=== PATIENT | male | born 1935 | race Caucasian/White ===

== ENCOUNTER 2017-09-27 11:25 | Observation (INO) | payer MEDICARE ==
[2017-09-27] MEDS ORDERED: MORPHINE SULFATE 2 MG/ML SYRINGE IV STA (12:23)
--- NOTE | 2017-09-27 12:26 | ED ---
General Adult HPI - General Chief complaint: Chest Pain Stated complaint: CHEST PAIN, LOW BACK PAIN, COPD Time Seen by Provider: 09/27/17 11:55 Source: patient, family, RN notes reviewed, old records reviewed Mode of arrival: wheelchair Limitations: physical limitation - History of Present Illness Initial comments: 81-year-old male history of COPD, atrial fibrillation, and current tobacco use presents for evaluation of left-sided chest pain and low back pain. Patient has a known history of abdominal aortic aneurysm and according to the patient an aneurysm "behind his heart". This is been followed by cardiothoracic surgery. He states that approximately one week ago he developed left-sided chest pain which was sharp in nature. Worse with deep breathing. And some atraumatic low back pain. Patient describes the back pain as bilateral. His had some mild dyspnea associated with this. No diaphoresis. No vomiting. No history of hypertension. - Related Data Home Medications Medication Instructions Recorded Confirmed Albuterol Sulfate [Proair Hfa] 1 - 2 puff INHALATION RT-Q6H PRN 09/27/17 Doxycycline Hyclate 100 mg PO DAILY 09/27/17 09/27/17 Flecainide [Tambocor] 50 mg PO Q12HR 09/27/17 09/27/17 Niacin 500 mg PO TID 09/27/17 09/27/17 Triamcinolone 0.5% Cream [Kenalog 1 applic TOPICAL BID 09/27/17 09/27/17 0.5% Cream] Warfarin [Coumadin] 5 mg PO W/SUPPER 09/27/17 09/27/17 diphenhydrAMINE [Benadryl] 50 mg PO Q6H PRN 09/27/17 09/27/17 predniSONE 10 mg PO DAILY 09/27/17 09/27/17 Allergies Allergy/AdvReac Type Severity Reaction Status Date / Time No Known Allergies Allergy Verified 09/27/17 13:02 Review of Systems ROS Statement: Those systems with pertinent positive or pertinent negative responses have been documented in the HPI. ROS Other: All systems not noted in ROS Statement are negative. Past Medical History Past Medical History: Atrial Fibrillation, COPD History of Any Multi-Drug Resistant Organisms: None Reported Past Surgical History: Hernia Repair Additional Past Surgical History / Comment(s): ULCER REPAIR- 35 YEARS AGO Past Psychological History: No Psychological Hx Reported Smoking Status: Current every day smoker Past Alcohol Use History: Occasional Past Drug Use History: None Reported General Exam Limitations: physical limitation General appearance: alert, in no apparent distress Head exam: Present: atraumatic, normocephalic Eye exam: Present: normal appearance, PERRL, EOMI Neck exam: Present: normal inspection. Absent: tenderness, meningismus Respiratory exam: Present: decreased breath sounds, prolonged expiratory. Absent: respiratory distress Cardiovascular Exam: Present: regular rate, normal rhythm GI/Abdominal exam: Present: soft. Absent: distended, tenderness, guarding Extremities exam: Present: normal inspection, normal capillary refill. Absent: pedal edema Back exam: Present: tenderness, paraspinal tenderness Neurological exam: Present: alert, oriented X3, CN II-XII intact. Absent: motor sensory deficit Psychiatric exam: Present: normal affect, normal mood Skin exam: Present: warm, dry, intact. Absent: cyanosis, diaphoretic Course Vital Signs 09/27/17 09/27/17 11:36 13:05 Temperature 97.9 F Pulse Rate 62 74 Respiratory 18 20 Rate Blood Pressure 146/86 187/89 O2 Sat by Pulse 98 96 Oximetry EKG Findings - EKG Comments: EKG Findings:: EKG shows sinus bradycardia, left anterior fascicular block, hyperacute T waves in the lateral precordium, rate of 54, RI interval 186, QRS duration 98, QTC 426 Medical Decision Making - Medical Decision Making 81-year-old male presenting for evaluation of chest pain and back pain. Patient does have history of thoracic aortic aneurysm as well as abdominal aortic aneurysm. For this reason CT angiography is obtained, patient is a 4.6 cm thoracic aneurysm with no dissection and a 3 cm abdominal aneurysm. Chest x- ray shows aneurysmal change with no focal pneumonia or pneumothorax. Workup reveals normal white blood cell count, stable hemoglobin, INR is 2.0, troponin is negative. CMP is unremarkable. Case discussed with Dr. Herron, will accept admission for chest pain rule out. Patient is anticoagulated, heparin will be held at this time. - Lab Data Result diagrams: 09/27/17 12:05 09/27/17 12:05 Lab Results 09/27/17 09/27/17 09/27/17 Range/Units 12:05 12:05 12:05 WBC 7.1 (3.8-10.6) k/uL RBC 4.82 (4.30-5.90) m/uL Hgb 15.3 (13.0-17.5) gm/dL Hct 46.3 (39.0-53.0) % MCV 96.2 (80.0-100.0) fL MCH 31.8 (25.0-35.0) pg MCHC 33.1 (31.0-37.0) g/dL RDW 13.4 (11.5-15.5) % Plt Count 266 (150-450) k/uL Neutrophils % 84 % Lymphocytes % 8 % Monocytes % 5 % Eosinophils % 2 % Basophils % 0 % Neutrophils # 6.0 (1.3-7.7) k/uL Lymphocytes # 0.6 L (1.0-4.8) k/uL Monocytes # 0.3 (0-1.0) k/uL Eosinophils # 0.1 (0-0.7) k/uL Basophils # 0.0 (0-0.2) k/uL PT (9.0-12.0) sec INR (<1.2) APTT (22.0-30.0) sec Sodium 134 L (137-145) mmol/L Potassium 4.4 (3.5-5.1) mmol/L Chloride 96 L (98-107) mmol/L Carbon Dioxide 28 (22-30) mmol/L Anion Gap 10 mmol/L BUN 11 (9-20) mg/dL Creatinine 0.83 (0.66-1.25) mg/dL Est GFR (CKD-EPI)AfAm >90 (>60 ml/min/1.73 sqM) Est GFR (CKD-EPI)NonAf 83 (>60 ml/min/1.73 sqM) Glucose 85 (74-99) mg/dL Calcium 9.1 (8.4-10.2) mg/dL Magnesium 1.8 (1.6-2.3) mg/dL Total Bilirubin 0.5 (0.2-1.3) mg/dL AST 38 (17-59) U/L ALT 32 (21-72) U/L Alkaline Phosphatase 123 (38-126) U/L Total Creatine Kinase 81 (55-170) U/L CK-MB (CK-2) 2.4 (0.0-2.4) ng/mL CK-MB (CK-2) Rel Index 3.0 Troponin I <0.012 (0.000-0.034) ng/mL NT-Pro-B Natriuret Pep pg/mL Total Protein 6.7 (6.3-8.2) g/dL Albumin 4.1 (3.5-5.0) g/dL Lipase 42 (23-300) U/L 09/27/17 09/27/17 Range/Units 12:05 14:04 WBC (3.8-10.6) k/uL RBC (4.30-5.90) m/uL Hgb (13.0-17.5) gm/dL Hct (39.0-53.0) % MCV (80.0-100.0) fL MCH (25.0-35.0) pg MCHC (31.0-37.0) g/dL RDW (11.5-15.5) % Plt Count (150-450) k/uL Neutrophils % % Lymphocytes % % Monocytes % % Eosinophils % % Basophils % % Neutrophils # (1.3-7.7) k/uL Lymphocytes # (1.0-4.8) k/uL Monocytes # (0-1.0) k/uL Eosinophils # (0-0.7) k/uL Basophils # (0-0.2) k/uL PT 18.4 H (9.0-12.0) sec INR 2.0 H (<1.2) APTT 29.1 (22.0-30.0) sec Sodium (137-145) mmol/L Potassium (3.5-5.1) mmol/L Chloride (98-107) mmol/L Carbon Dioxide (22-30) mmol/L Anion Gap mmol/L BUN (9-20) mg/dL Creatinine (0.66-1.25) mg/dL Est GFR (CKD-EPI)AfAm (>60 ml/min/1.73 sqM) Est GFR (CKD-EPI)NonAf (>60 ml/min/1.73 sqM) Glucose (74-99) mg/dL Calcium (8.4-10.2) mg/dL Magnesium (1.6-2.3) mg/dL Total Bilirubin (0.2-1.3) mg/dL AST (17-59) U/L ALT (21-72) U/L Alkaline Phosphatase (38-126) U/L Total Creatine Kinase (55-170) U/L CK-MB (CK-2) (0.0-2.4) ng/mL CK-MB (CK-2) Rel Index Troponin I (0.000-0.034) ng/mL NT-Pro-B Natriuret Pep 110 pg/mL Total Protein (6.3-8.2) g/dL Albumin (3.5-5.0) g/dL Lipase (23-300) U/L Disposition Clinical Impression: Chest pain Disposition: ADMITTED IP TO THIS [facility] Condition: Stable Is patient prescribed a controlled substance at d/c from ED?: No Referrals: Anamaria Faria MD [Primary Care Provider] - 1-2 days Decision to Admit Reason: Admit from EC Decision Date: 09/27/17 Decision Time: 15:43
[2017-09-27] MEDS ORDERED: RX INFO: IV CONTRAST WAS GIVEN 1 EACH MISC MISCELLANE PRN (12:38)
[2017-09-27 13:15] LABS: Basophils % (A) 0 %; Eosinophils # (A) 0.1 k/uL (0-0.7); Eosinophils % (A) 2 %; HCT 46.3 % (39.0-53.0); HGB 15.3 gm/dL (13.0-17.5); Lymphocytes # (A) 0.6 k/uL (1.0-4.8); Lymphocytes % (A) 8 %; MCH 31.8 pg (25.0-35.0); MCHC 33.1 g/dL (31.0-37.0); MCV 96.2 fL (80.0-100.0); Mean Platelet Volume 7.3; Monocytes # (A) 0.3 k/uL (0-1.0); Monocytes % (A) 5 %; Neutrophils % (A) 84 %; Platelet Count 266 k/uL (150-450); RBC 4.82 m/uL (4.30-5.90); RDW 13.4 % (11.5-15.5); WBC 7.1 k/uL (3.8-10.6)
[2017-09-27 13:24] LABS: ALT 32 U/L (21-72); AST 38 U/L (17-59); Albumin 4.1 g/dL (3.5-5.0); Alkaline Phosphatase 123 U/L (38-126); Anion Gap 10 mmol/L; Blood Urea Nitrogen 11 mg/dL (9-20); Calcium 9.1 mg/dL (8.4-10.2); Carbon Dioxide 28 mmol/L (22-30); Chloride 96 mmol/L (98-107); Glucose 85 mg/dL (74-99); Lipase 42 U/L (23-300); Magnesium 1.8 mg/dL (1.6-2.3); Potassium 4.4 mmol/L (3.5-5.1); Sodium 134 mmol/L (137-145); Total Bilirubin 0.5 mg/dL (0.2-1.3); Total Protein 6.7 g/dL (6.3-8.2)
[2017-09-27 13:44] LABS: Creatine Kinase 81 U/L (55-170)
[2017-09-27 13:56] LABS: Creatine Kinase MB 2.4 ng/mL (0.0-2.4); Troponin I <0.012 ng/mL (0.000-0.034)
--- NOTE | 2017-09-27 14:05 | XR ---
EXAMINATION TYPE: XR chest 2V DATE OF EXAM: 09/27/2017 COMPARISON: CT angiogram same day HISTORY: Chest pain TECHNIQUE: Frontal and lateral views of the chest are obtained on 3 images. FINDINGS: There is no focal air space opacity, pleural effusion, or pneumothorax seen. The cardiac silhouette size is within normal limits. The osseous structures are intact. Prominent lung volumes are compatible with underlying COPD. No pneumothorax or pleural effusion. Aorta is aneurysmal. No vargas dent airspace disease. Surgical clips present at the gastroesophageal junction level. There are overl darrell cardiac leads. IMPRESSION: No acute cardiopulmonary process. Aortic aneurysm. Emphysema.
--- NOTE | 2017-09-27 14:22 | CT ---
EXAMINATION TYPE: CT angio thoracic/abd aorta DATE OF EXAM: 09/27/2017 COMPARISON: NONE HISTORY: Patient complains of back and abdominal pain with a history of abdominal and ascending aorta aneurysms. CT DLP: 448.3 mGycm CONTRAST: CTA thoracic and abdominal aorta with 3-D reconstruction is performed and without and with IV Contras t, patient injected with 100 mL of Isovue 370. Contrast CTA of the thoracic and abdominal aorta was performed from the lung apex through the base of the pelvis. 3-D reconstruction imaging obtained at a separate workstation. CT Chest: THORACIC AORTA: Ascending thoracic aortic aneurysm measures 4.6 cm in AP dimension. Aneurysm distal a ortic arch measuring 3.6 cm. Ectasia of the descending thoracic aorta. No evidence for dissection. Mi ld atheromatous changes seen. There is no evidence for dissection or periaortic collection. LUNGS: Upper lobe emphysematous changes. Hyperinflation compatible with COPD. No evidence of infiltra te nodule or mass. MEDIASTINUM: The heart is not enlarged. No evidence for mediastinal mass or adenopathy. HILAR STRUCTURES: No evidence for mass. No hilar adenopathy is appreciated. OTHER: No significant abnormality. CONTRAST CT ABDOMEN AND PELVIS ABDOMINAL AORTA: Infrarenal abdominal aortic aneurysm measuring 3 cm AP dimension. Mural thrombus not ed throughout. Branch vessels are patent. Ectasia noted of the abdominal aorta and iliac vessels. No evidence for dissection or para-aortic hematoma. LIVER/GB- No significant abnormality is seen. PANCREAS- No significant abnormality is seen. SPLEEN- No significant abnormality is seen. ADRENALS- No significant abnormality is seen. KIDNEYS/BLADDER- No significant abnormality is seen. BOWEL- No Significant abnormality GENITAL ORGANS: No gross abnormality seen. LYMPH NODES- No greater than 1cm abdominal or pelvic lymph nodes areappreciated. OSSEOUS STRUCTURES- No significant abnormality is seen. OTHER- No significant abnormality is seen. IMPRESSION- 1. Thoracic aortic and abdominal aortic aneurysms as discussed above without evidence for calcaneal f actor at this time.
[2017-09-27 14:25] LABS: Partial Thromboplastin Time 29.1 sec (22.0-30.0); Prothrombin Time 18.4 sec (9.0-12.0)
[2017-09-27] MEDS ORDERED: MORPHINE SULFATE 2 MG/ML SYRINGE IV PRN (15:36)
[2017-09-27] MEDS ORDERED: IBUPROFEN 400 MG TAB PO PRN (15:36)
[2017-09-27] MEDS ORDERED: NALOXONE 0.4 MG/ML 1 ML VIAL IV PRN (15:36)
[2017-09-27] MEDS: ALBUTEROL NEBULIZED 2.5 MG/3 ML INHALATION SCH ×2 (16:24→20:23)
[2017-09-27 18:22] VITALS: BMI 18.8
[2017-09-27] MEDS: WARFARIN 5 MG TAB PO SCH (18:32)
[2017-09-27 19:04] LABS: Creatine Kinase 78 U/L (55-170)
[2017-09-27 19:16] LABS: Creatine Kinase MB 2.4 ng/mL (0.0-2.4); Troponin I <0.012 ng/mL (0.000-0.034)
[2017-09-27] MEDS: FLECAINIDE 50 MG TAB PO SCH (20:59)
[2017-09-28] MEDS ORDERED: AMINOPHYLLINE 500 MG/20 ML VIAL IV PRN (07:33)
[2017-09-28] MEDS ORDERED: REGADENOSON 0.4 MG/5 ML SYRINGE IV ONE (07:33)
[2017-09-28] MEDS: ALBUTEROL NEBULIZED 2.5 MG/3 ML INHALATION SCH ×4 (08:07→19:17)
[2017-09-28] MEDS ORDERED: MORPHINE ORAL SOLN 10 MG/5 ML CUP PO PRN (09:18)
--- NOTE | 2017-09-28 09:20 | CONS ---
CONSULTATION Attending: Dr. Faria. Mr. Foster is an 81-year-old male with a known history of paroxysmal atrial fibrillation, history of chronic tobacco use as well as history of thoracic aneurysm followed by Dr. Vanegas, who presented with symptoms of lower back discomfort radiating to the chest. The discomfort started about a week or so ago, was much worse and came into the emergency room. He has chronic dyspnea on exertion related to his chronic tobacco use and chronic obstructive lung disease. He has been followed by Dr. Zapata in the past, but has not seen him in the last 2 weeks. He follows with Dr. James regarding the paroxysmal atrial fibrillation and has been stable. He has no history of documented obstructive coronary disease according to him. No history of congestive heart failure. He has no PND, orthopnea, or peripheral edema. No dizziness, palpitation, or syncope. His coronary risk factors are remarkable for the smoking. He is nondiabetic, not hyperlipidemic or hypertensive. MEDICATION: His medications include prednisone 10 mg daily, Coumadin, niacin, Tambocor 50 mg twice a day, doxycycline, and albuterol. REVIEW OF SYSTEMS: RESPIRATORY SYSTEM: He has chronic obstructive lung disease with chronic dyspnea on exertion. GI SYSTEM: No recent GI bleed. No peptic ulcer disease. He had a remote history of ulcer that has been stable. SYSTEM: No dysuria or hematuria. NERVOUS SYSTEM: No stroke or seizure. PHYSICAL EXAMINATION: He is an 81-year-old male, alert, oriented, in no apparent distress. Blood pressure 133/69 with a heart rate in the the 60s. HEAD: Normocephalic. EYES: Sclerae anicteric. NECK: Good carotid upstroke. No bruit. No jugular venous distention. LUNGS: With decreased air exchange. No wheezes. HEART: Regular rate and rhythm. S1, S2. No S3. No rub. ABDOMEN: Soft, nontender. Positive bowel sounds. No organomegaly. EXTREMITIES: No edema. Intact distal pulses. LAB DATA: Lab data revealed troponin less than 0.012 for 3 samples. NT proBNP of 110. BUN and creatinine of 11 and 0.83. Potassium 4.4. INR of 2.0. Hemoglobin 15.3. EKG revealed a sinus mechanism with a left axis deviation, left anterior fascicular block with nonspecific ST-T wave changes. CT scan of the chest showed an aneurysm of 4.6 with no evidence of dissection. He had also an abdominal aneurysm measuring 3 cm. IMPRESSION: 1. Severe back discomfort radiating to the chest, has atypical features for ischemic heart disease, probably noncardiac. 2. Paroxysmal fibrillation, remain in sinus mechanism. 3. History of thoracic aneurysm, chronic and has been followed by Dr. Vanegas. 4. History of chronic obstructive lung disease. 5. Chronic tobacco use. RECOMMENDATION: At this time, I do not believe that his symptoms are consistent with acute coronary syndrome. I will obtain a myocardial perfusion imaging and an echocardiogram. Depending on those findings, further recommendation will be made. Thank you for this consult. We will follow with you. MMODL / IJN: [id number] /
[2017-09-28] MEDS: FLECAINIDE 50 MG TAB PO SCH ×2 (12:48→20:33)
--- NOTE | 2017-09-28 13:02 | EST ---
EXERCISE STRESS DATE OF SERVICE: 09/28/2017 AGE: 81 SEX: Male HT: 6'0" WT: 138 pounds PROTOCOL: Lexiscan Cardiolite STAGE: DURATION OF EXERCISE: HEART RATE REST: 52 BLOOD PRESSURE REST: 143/97 MAXIMUM HEART RATE ACHIEVED: 82 MAXIMUM BLOOD PRESSURE: 161/96 85% MPHR: 100% MPHR: METS: INDICATIONS: Chest pain. CLINICAL INFORMATION: Baseline rhythm is sinus mechanism, rate of 52, normal axis, intervals, normal electrocardiogram. Baseline blood pressure 143/97 mmHg. Patient received injection of Lexiscan. Electrocardiograph monitoring revealed no evidence of diagnostic ischemic ST deviation. Cardiolite was injected per protocol. CONCLUSION: 1. Nondiagnostic electrocardiograph stress testing. 2. Nuclear images will be reported separately. MMODL / IJN: [id number] /
[2017-09-28] MEDS: predniSONE 10 MG TAB PO SCH (13:54)
--- NOTE | 2017-09-28 14:26 | NM ---
EXAMINATION TYPE: NM stress lexiscan cardiolite DATE OF EXAM: 09/28/2017 COMPARISON: NONE HISTORY: Chest pain TECHNIQUE: After the intravenous administration of 10.33 mCi Tc 99m Sestamibi - Cardiolite resting S PECT images acquired 45 minutes post injection. The patient received 0.4mg Lexiscan, 25.8 mCi Tc 99m Sestamibi - Stress images obtained [address] injection FINDINGS: Review of stress and rest SPECT images demonstrates no distinct perfusion abnormality. Gated analysi s shows normal wall motion with an estimated left ventricular ejection fraction of 67 %. IMPRESSION: No scintigraphic evidence for reversible ischemia. Consider echocardiographic correlation for elevate d ejection fraction.
[2017-09-28] MEDS ORDERED: ALBUTEROL NEBULIZED 2.5 MG/3 ML INHALATION PRN (16:21)
[2017-09-28] MEDS ORDERED: diphenhydrAMINE 25 MG CAP PO PRN (16:21)
--- NOTE | 2017-09-28 16:30 | P.HPIM ---
History of Present Illness H&P Date: 09/28/17 Chief Complaint: Left-sided chest wall and back pain This is a 81-year-old male, patient of Dr. Cho. Patient has a known past medical history of COPD, atrial fibrillation, nicotine dependence, thoracic and abdominal aortic aneurysm. Patient is currently being treated for a Bullous Pemphigoid rash. He is on doxycycline and prednisone. He has been followed closely by dermatology. Patient presents to the emergency room with complaints of left-sided chest pain and back pain. Mostly in the left-sided rib area. He is tender with palpation. He had a computed tomography scan completed that showed no evidence of any dissection of his aneurysms. EKG showed sinus bradycardia with a heart rate of 54 and a left anterior fascicular block. Troponins were negative 3 sets. Chest x-ray was negative for any acute process did show emphysema. Patient was seen evaluated by cardiology and underwent a stress test results showed no evidence for reversible ischemia. Patient was cleared by cardiology for discharge. Echo is pending. However patient is still complaining of this left-sided lower back pain that radiates into the left ribs and up into the chest wall. Further workup will be completed with a lumbar x-ray and left rib x-ray. Also will check a kidney ultrasound and urinalysis to rule out kidney stones. Patient also reports having about a 15 pound weight loss over the last few months that is unexplained. Denies any night sweats. Patient reports that his PCP had started workup outpatient computed tomography scan of the abdomen and pelvis which was unremarkable. CEA will be checked and if stool for occult blood will be ordered. Patient denies any fevers chills or sweats. Denies any nausea or vomiting. Denies any bowel movement changes or urinary symptoms. He does report that his pain is worse with movement especially going from a lying to standing position. And also when taking in a deep breath. Review of Systems Please refer to HPI otherwise unremarkable Past Medical History Past Medical History: Atrial Fibrillation, COPD Additional Past Medical History / Comment(s): aneurysm History of Any Multi-Drug Resistant Organisms: None Reported Past Surgical History: Hernia Repair Additional Past Surgical History / Comment(s): ULCER REPAIR- 35 YEARS AGO Past Anesthesia/Blood Transfusion Reactions: No Reported Reaction Past Psychological History: No Psychological Hx Reported Smoking Status: Current every day smoker Past Alcohol Use History: Occasional Past Drug Use History: None Reported - Past Family History Mother Family Medical History: Cancer Additional Family Medical History / Comment(s): from [place] (stomach) Father Family Medical History: Myocardial Infarction ([place]) Additional Family Medical History / Comment(s): passes away from aneurysm Medications and Allergies Home Medications Medication Instructions Recorded Confirmed Type Albuterol Sulfate [Proair Hfa] 1 - 2 puff INHALATION RT-Q6H PRN 09/27/17 History Doxycycline Hyclate 100 mg PO DAILY 09/27/17 09/27/17 History Flecainide [Tambocor] 50 mg PO Q12HR 09/27/17 09/27/17 History Niacin 500 mg PO TID 09/27/17 09/27/17 History Triamcinolone 0.5% Cream [Kenalog 1 applic TOPICAL BID 09/27/17 09/27/17 History 0.5% Cream] Warfarin [Coumadin] 5 mg PO W/SUPPER 09/27/17 09/27/17 History diphenhydrAMINE [Benadryl] 50 mg PO Q6H PRN 09/27/17 09/27/17 History predniSONE 10 mg PO DAILY 09/27/17 09/27/17 History Allergies Allergy/AdvReac Type Severity Reaction Status Date / Time No Known Allergies Allergy Verified 09/27/17 13:02 Physical Exam Vitals: Vital Signs Temp Pulse Pulse Resp BP BP Pulse Ox 09/28/17 15:40 68 18 09/28/17 15:31 68 18 95 09/28/17 12:00 18 09/28/17 11:49 97.8 F 66 18 153/76 96 09/28/17 08:15 64 09/28/17 08:07 60 09/28/17 08:00 18 09/28/17 07:45 98.1 F 62 18 134/72 93 L 09/28/17 00:10 57 L 17 09/27/17 23:41 97.9 F 57 L 17 133/69 97 09/27/17 20:38 72 09/27/17 20:25 74 97 09/27/17 20:15 80 16 09/27/17 20:00 97.9 F 78 16 125/71 99 09/27/17 17:09 97.5 F L 63 18 142/80 98 09/27/17 16:35 97.8 F 86 18 128/90 98 09/27/17 16:24 96 95 Intake and Output 09/28/17 09/28/17 09/28/17 06:59 14:59 22:59 Intake Total 1020 Balance 1020 Intake: Oral 420 Other 600 Other: Voiding Method Toilet Toilet Weight 62.596 kg Head normocephalic Neck supple Lungs clear to auscultation bilaterally no wheezing or crackles Heart regular rate and rhythm S1-S2, no rub or gallop Abdomen is soft nontender nondistended positive bowel sounds no hepatosplenomegaly Extremities no edema Neuro alert and orientated to 3 Musculoskeletal tenderness with palpation of the lower left rib cage and lumbar muscles on the left side. No tenderness with palpation of the spine. Results CBC & Chem 7: 09/27/17 12:05 09/27/17 12:05 Thrombosis Risk Factor Assmnt - Choose All That Apply Each Factor Represents 1 point: Abnormal pulmonary function (COPD) Each Risk Factor Represents 3 Points: Age 75 years or older Thrombosis Risk Factor Assessment Total Risk Factor Score: 4 Thrombosis Risk Factor Assessment Level: Moderate Risk Assessment and Plan Assessment: 1. Left-sided back pain radiating up into the left chest wall and rib area. Cardiac workup is negative. Patient has been cleared by cardiology for discharge. Stress test negative. EKG showed no ST changes and troponins were negative 3 sets. We'll order a x-ray of the left rib cage and lumbar spine. Also check kidney ultrasound with urinalysis to rule out kidney stones. Add [place] for pain control. Check a CEA level and stool for occult blood due to pain and a recent 15 pound weight loss that is unexplained 2. History of COPD stable no evidence of exacerbation 3. History of paroxysmal atrial fibrillation currently sinus rhythm. On Coumadin for anticoagulation 4. Nicotine dependence: Start nicotine patch 5.Bullous Pemphigoid continue doxycycline and prednisone. Continue with topical cream. Follows dermatology outpatient 6. History of a thoracic aortic aneurysm and abdominal aortic aneurysm. No evidence of dissection on CAT scan We'll keep patient overnight and reevaluate further test results. Time with Patient: Greater than 30 (Greater than 60% of the total time spent in counseling and coordination of care.I performed an examination of the patient and discussed their management with the physician Fig Washer. I have reviewed the Physician Fig Washer's notes and agree with the documented findings and plan of care)
--- NOTE | 2017-09-28 16:42 | XR ---
EXAMINATION TYPE: XR lumbar spine 2 or 3V DATE OF EXAM: 09/28/2017 COMPARISON: NONE HISTORY: Back pain left flank pain TECHNIQUE: Three-view lumbar spine FINDINGS: There is narrowing of the disc height at L5-S1. Remaining disc heights are preserved. Spond ylosis is present. Vertebral body alignment is normal. There 5 lumbar-type vertebral bodies. The pedi cles are intact. IMPRESSION: 1. Degenerative disc changes L5-S1
--- NOTE | 2017-09-28 16:42 | XR ---
EXAMINATION TYPE: XR ribs LT DATE OF EXAM: 09/28/2017 COMPARISON: Chest x-ray 09/27/2017 HISTORY: Left flank pain TECHNIQUE: 2 views left RIBS FINDINGS: No displaced fractures are evident. No pneumothorax is evident. IMPRESSION: 1. Normal left ribs. Follow-up can be performed as clinically indicated.
[2017-09-28] MEDS: WARFARIN 5 MG TAB PO SCH (17:07)
[2017-09-28] MEDS: NIACIN TR 500 MG CAPSULE.ER PO SCH ×2 (17:07→19:45)
[2017-09-28] MEDS: DOXYCYCLINE MONOHYDRATE 100 MG CAPSULE PO SCH (17:07)
[2017-09-28] MEDS: NICOTINE 21MG/24HR PATCH TRANSDERM SCH (17:07)
--- NOTE | 2017-09-28 17:07 | US ---
EXAMINATION TYPE: US kidneys/renal and bladder DATE OF EXAM: 09/28/2017 COMPARISON: CT 09/27/2017 CLINICAL HISTORY: left sided pain per patient. rule out kidney stone. EXAM MEASUREMENTS: Right Kidney: 10.1 x 4.5 x 4.9 cm Left Kidney: 9.9 x 4.6 x 4.2 cm Right Kidney: No hydronephrosis or masses or calcifications. Left Kidney: No hydronephrosis. Anechoic subcentimeter focus in the midpole consistent with simple re nal cysts. No solid mass. No calcification. Bladder: wnl as visualized, not fully distended Bilateral Jets seen: No, see above. IMPRESSION: NO ACUTE PROCESS; NO SONOGRAPHIC CORRELATE FOR THE PATIENT'S SYMPTOMS.
[2017-09-28] MEDS: HYDROcodone/APAP 5-325MG 1 EACH TAB PO PRN (19:45)
--- NOTE | 2017-09-28 20:06 | ECHOF ---
Referral Reason: MEASUREMENTS -------- HEIGHT: 182.9 cm WEIGHT: 62.6 kg BP: IVSd: 1.1 cm (0.6 - 1.1) LVIDd: 4.7 cm (3.9 - 5.3) LVPWd: 1.0 cm (0.6 - 1.1) IVSs: 1.4 cm LVIDs: 2.5 cm LVPWs: 1.4 cm LAESV Index (A-L): 18.04 ml/m Ao Diam: 2.9 cm (2.0 - 3.7) AV Cusp: 1.4 cm (1.5 - 2.6) LA Diam: 2.0 cm (2.7 - 3.8) MV E Kiko: 0.74 m/s MV DecT: 265 ms MV A Kiko: 0.82 m/s MV E/A Ratio: 0.91 AR PHT: 671 ms RAP: 5.00 mmHg RVSP: 34.68 mmHg FINDINGS -------- Sinus rhythm. This was a technically adequate study. The left ventricular size is normal. There is borderline concentric left ventricular hypertrophy. Overall left ventricular systolic function is normal with, an EF between 55 - 60 %. The right ventricle is normal in size and function. Normal LA size by volume 22+/-6 ml/m2. The right atrium is normal in size. There is mild aortic valve sclerosis. There is mild aortic regurgitation. The mitral valve leaflets are mildly thickened. Mild mitral regurgitation is present. Nuuo-nb-icxdilsy tricuspid regurgitation present. There is no evidence of pulmonary hypertension. The right ventricular systolic pressure, as measured by Doppler, is 34.68mmHg. The pulmonic valve was not well visualized. There is no pulmonic regurgitation present. The aortic root size is normal. Normal inferior vena cava with normal inspiratory collapse consistent with estimated right atrial pre ssure of 5 mmHg. There is no pericardial effusion. CONCLUSIONS -------- 1. Sinus rhythm. 2. This was a technically adequate study. 3. The left ventricular size is normal. 4. There is borderline concentric left ventricular hypertrophy. 5. Overall left ventricular systolic function is normal with, an EF between 55 - 60 %. 6. Normal LA size by volume 22+/-6 ml/m2. 7. There is mild aortic valve sclerosis. 8. There is mild aortic regurgitation. 9. The mitral valve leaflets are mildly thickened. 10. Mild mitral regurgitation is present. 11. Sjcc-zf-xgdnbzyk tricuspid regurgitation present. 12. The pulmonic valve was not well visualized. 13. There is no pulmonic regurgitation present. 14. The aortic root size is normal. 15. There is no pericardial effusion. COLLECTION ANALYST: Marco Spaulding RDCS
[2017-09-28] MEDS: TRIAMCINOLONE ACET 0.5% CREAM 15 GM TUBE TOPICAL SCH (20:34)
[2017-09-28 21:10] LABS: Appearance,Urine Clear (Clear); Bilirubin,Urine Negative (Negative); Blood,Urine Negative (Negative); Color,Urine Yellow; Glucose,Urine (UA) Trace (Negative); Ketones,Urine 1+ (Negative); Leukocyte Esterase,Urine Negative (Negative); Nitrite,Urine Negative (Negative); Protein,Urine Trace (Negative); Urobilinogen,Urine <2.0 mg/dL (<2.0)
[2017-09-29] MEDS: HYDROcodone/APAP 5-325MG 1 EACH TAB PO PRN (06:20)
[2017-09-29] MEDS: ALBUTEROL NEBULIZED 2.5 MG/3 ML INHALATION SCH ×2 (08:03→12:23)
[2017-09-29 09:09] VITALS: RESP 18
[2017-09-29] MEDS: predniSONE 10 MG TAB PO SCH (09:19)
[2017-09-29] MEDS: DOXYCYCLINE MONOHYDRATE 100 MG CAPSULE PO SCH (09:19)
[2017-09-29] MEDS: NICOTINE 21MG/24HR PATCH TRANSDERM SCH (09:19)
[2017-09-29] MEDS: NIACIN TR 500 MG CAPSULE.ER PO SCH (09:19)
[2017-09-29] MEDS: FLECAINIDE 50 MG TAB PO SCH (09:19)
[2017-09-29] MEDS: TRIAMCINOLONE ACET 0.5% CREAM 15 GM TUBE TOPICAL SCH (09:23)
[2017-09-29 09:34] LABS: Basophils % (A) 1 %; Eosinophils # (A) 0.2 k/uL (0-0.7); Eosinophils % (A) 3 %; HGB 14.6 gm/dL (13.0-17.5); Lymphocytes # (A) 1.3 k/uL (1.0-4.8); Lymphocytes % (A) 20 %; MCH 31.5 pg (25.0-35.0); MCHC 32.4 g/dL (31.0-37.0); MCV 97.2 fL (80.0-100.0); Mean Platelet Volume 7.1; Monocytes # (A) 0.5 k/uL (0-1.0); Monocytes % (A) 8 %; Neutrophils # (A) 4.3 k/uL (1.3-7.7); Neutrophils % (A) 66 %; Platelet Count 253 k/uL (150-450); RBC 4.63 m/uL (4.30-5.90); RDW 13.4 % (11.5-15.5); WBC 6.5 k/uL (3.8-10.6)
[2017-09-29 09:48] LABS: ALT 29 U/L (21-72); AST 32 U/L (17-59); Albumin 3.7 g/dL (3.5-5.0); Alkaline Phosphatase 100 U/L (38-126); Anion Gap 9 mmol/L; Blood Urea Nitrogen 16 mg/dL (9-20); Calcium 9.3 mg/dL (8.4-10.2); Carbon Dioxide 29 mmol/L (22-30); Chloride 98 mmol/L (98-107); Glucose 56 mg/dL (74-99); Potassium 4.5 mmol/L (3.5-5.1); Sodium 136 mmol/L (137-145); Total Bilirubin 0.3 mg/dL (0.2-1.3); Total Protein 6.1 g/dL (6.3-8.2)
[2017-09-29 09:50] LABS: INR 1.9 (<1.2)
--- NOTE | 2017-09-29 11:05 | P.DS ---
Providers Date of admission: 09/27/17 15:36 Expected date of discharge: 09/29/17 Attending physician: Rochelle Herron Consults: 09/27/17 15:36 Consult Physician Routine Consulting Provider: Michael Borja Consult Reason/Comments: Chest pain Do you want consulting provider notified?: Yes Primary care physician: Anamaria Faria Hospital Course: Discharge diagnosis 1. Left-sided back pain radiating up into the left chest wall and rib area. Likely related to a lumbar muscle strain and degenerative changes in the lumbar spine. We'll add Flexeril as needed for muscle spasms. Continue with the [place] as needed for pain control. Cardiac workup is negative. Patient has been cleared by cardiology for discharge. Stress test negative. Echo shows an EF of 55-60% with mild to moderate tricuspid regurgitation. EKG showed no ST changes and troponins were negative 3 sets. Left rib x-rays are normal. Lumbar spine x-ray showed degenerative disc changes. Kidney ultrasound showed no acute changes did reveal simple renal cysts. Urinalysis was negative. Check a CEA level pending and stool for occult blood due to pain and a recent 15 pound weight loss that is unexplained. CEA level is pending. Patient had no bowel movement. Does not report any blood in his stools. Last colonoscopy was about 4-5 years ago patient reports that he had a lot of polyps removed. They were not cancerous. And patient reports that he is getting close to time to follow-up with Dr. Ambrosio again for a repeat colonoscopy. 2. History of COPD stable no evidence of exacerbation 3. History of paroxysmal atrial fibrillation currently sinus rhythm. On Coumadin for anticoagulation 4. Nicotine dependence: Start nicotine patch 5.Bullous Pemphigoid continue doxycycline and prednisone. Continue with topical cream. Follows dermatology outpatient 6. History of a thoracic aortic aneurysm and abdominal aortic aneurysm. No evidence of dissection on CAT scan Hospital course This is a 81-year-old male, patient of Dr. Cho. Patient has a known past medical history of COPD, atrial fibrillation, nicotine dependence, thoracic and abdominal aortic aneurysm. Patient is currently being treated for a Bullous Pemphigoid rash. He is on doxycycline and prednisone. He has been followed closely by dermatology. Patient presents to the emergency room with complaints of left-sided chest pain and back pain. Mostly in the left-sided rib area. He is tender with palpation. He had a computed tomography scan completed that showed no evidence of any dissection of his aneurysms. EKG showed sinus bradycardia with a heart rate of 54 and a left anterior fascicular block. Troponins were negative 3 sets. Chest x-ray was negative for any acute process did show emphysema. Patient was seen evaluated by cardiology and underwent a stress test results showed no evidence for reversible ischemia. Patient was cleared by cardiology for discharge. Echo is pending. However patient is still complaining of this left-sided lower back pain that radiates into the left ribs and up into the chest wall. Further workup will be completed with a lumbar x-ray and left rib x-ray. Also will check a kidney ultrasound and urinalysis to rule out kidney stones. Patient also reports having about a 15 pound weight loss over the last few months that is unexplained. Denies any night sweats. Patient reports that his PCP had started workup outpatient computed tomography scan of the abdomen and pelvis which was unremarkable. CEA will be checked and if stool for occult blood will be ordered. Patient denies any fevers chills or sweats. Denies any nausea or vomiting. Denies any bowel movement changes or urinary symptoms. He does report that his pain is worse with movement especially going from a lying to standing position. And also when taking in a deep breath. Patient has been cleared by cardiology for discharge. Cardiac workup was negative. Likely patient's symptoms are related to lumbar muscle strain and degenerative changes in the lumbar spine. There were no evidence of kidney stones. Rib x-ray was normal. Also would recommend that patient does follow- up with GI service for a possible repeat colonoscopy. CEA level is pending. He had reports no change in his bowel movements. But does report having a history of a lot of polyps. Patient's will follow-up with his PCP in 1 week for further evaluation. Patient is medical stable for discharge. Please refer to chart for any further details. I performed an examination of the patient and discussed their management with the physician Gravity Meter Operator. I have reviewed the Physician Gravity Meter Operator's notes and agree with the documented findings and plan of care Patient Condition at Discharge: Stable Plan - Discharge Summary Discharge Rx Participant: No New Discharge Prescriptions: New Cyclobenzaprine [Flexeril] 10 mg PO BID PRN #14 tab PRN Reason: Muscle Spasm Continue Warfarin [Coumadin] 5 mg PO W/SUPPER diphenhydrAMINE [Benadryl] 50 mg PO Q6H PRN PRN Reason: Allergic Reaction Triamcinolone 0.5% Cream [Kenalog 0.5% Cream] 1 applic TOPICAL BID predniSONE 10 mg PO DAILY Niacin 500 mg PO TID Flecainide [Tambocor] 50 mg PO Q12HR Albuterol Sulfate [Proair Hfa] 1 - 2 puff INHALATION RT-Q6H PRN PRN Reason: Shortness Of Breath Doxycycline Hyclate 100 mg PO DAILY Discharge Medication List Albuterol Sulfate [Proair Hfa] 1 - 2 puff INHALATION RT-Q6H PRN 09/27/17 [ History] Doxycycline Hyclate 100 mg PO DAILY 09/27/17 [History] Flecainide [Tambocor] 50 mg PO Q12HR 09/27/17 [History] Niacin 500 mg PO TID 09/27/17 [History] Triamcinolone 0.5% Cream [Kenalog 0.5% Cream] 1 applic TOPICAL BID 09/27/17 [ History] Warfarin [Coumadin] 5 mg PO W/SUPPER 09/27/17 [History] diphenhydrAMINE [Benadryl] 50 mg PO Q6H PRN 09/27/17 [History] predniSONE 10 mg PO DAILY 09/27/17 [History] Cyclobenzaprine [Flexeril] 10 mg PO BID PRN #14 tab 09/29/17 [Rx] Follow up Appointment(s)/Referral(s): Anamaria Faria MD [Primary Care Provider] - 1 Week Activity/Diet/Wound Care/Special Instructions: Diet: cardiac Activity: as tolerated Discharge Disposition: HOME SELF-CARE
[2017-09-29 12:30] VITALS: BP 116/67; TEMP 97.4
[2017-09-29 12:33] VITALS: PULSE 68
== END 2017-09-29 13:46 | disposition home or self-care (01) ==
LOC: EC 11:25 → 3OBS 15:36
PROVIDERS: ADMIT Internal Medicine; ATTEND Internal Medicine
DX: R07.89 Other chest pain (principal); J44.9 Chronic obstructive pulmonary disease, unspecified; M54.5 Low back pain; I71.4 Abdominal aortic aneurysm, without rupture; I71.2 Thoracic aortic aneurysm, without rupture; F17.200 Nicotine dependence, unspecified, uncomplicated; R63.4 Abnormal weight loss; I48.0 Paroxysmal atrial fibrillation; M51.36 Other intervertebral disc degeneration, lumbar region; S39.012A Strain of muscle, fascia and tendon of lower back, initial encounter; L12.0 Bullous pemphigoid; Z79.2 Long term (current) use of antibiotics; Z79.52 Long term (current) use of systemic steroids; Z79.899 Other long term (current) drug therapy; Z79.01 Long term (current) use of anticoagulants; Z82.49 Family history of ischemic heart disease and other diseases of the circulatory system; Z80.0 Family history of malignant neoplasm of digestive organs
CPT/HCPCS: 99285 ×2; 36415; 94640 ×6; 94760 ×2; 93005; 93017; 93306; 83880; 80053 ×2; 82378; 82550; 82553; 83690; 83735; 84484; 85025 ×2; 85610 ×2; 85730; 81003; 87086; 72100; 71100; 71046; 76770; 75635; 71275; 78452; G0378 ×3; A9500; S4990 ×2; J2785; J7512 ×2; Q9967

== ENCOUNTER → 2017-11-23 | Outpatient (CLI) | payer MEDICARE ==
[2017-11-23 16:23] LABS: HCT 42.5 % (39.0-53.0); MCH 31.2 pg (25.0-35.0); MCHC 32.9 g/dL (31.0-37.0); Mean Platelet Volume 6.7; Platelet Count 244 k/uL (150-450); RBC 4.48 m/uL (4.30-5.90); RDW 13.2 % (11.5-15.5); WBC 7.5 k/uL (3.8-10.6)
[2017-11-23 16:38] LABS: ALT 33 U/L (21-72); AST 32 U/L (17-59); Albumin 3.6 g/dL (3.5-5.0); Alkaline Phosphatase 119 U/L (38-126); Anion Gap 6 mmol/L; Blood Urea Nitrogen 15 mg/dL (9-20); Calcium 8.9 mg/dL (8.4-10.2); Carbon Dioxide 28 mmol/L (22-30); Chloride 101 mmol/L (98-107); Glucose 93 mg/dL (74-99); Potassium 4.5 mmol/L (3.5-5.1); Sodium 135 mmol/L (137-145); Total Bilirubin 0.4 mg/dL (0.2-1.3); Total Protein 6.2 g/dL (6.3-8.2)
== END | disposition home or self-care (01) ==
LOC: LABWHC1 15:41
PROVIDERS: ATTEND Internal Medicine Cardiovascular Disease
DX: J44.9 Chronic obstructive pulmonary disease, unspecified (principal); R60.9 Edema, unspecified
CPT/HCPCS: 36415; 80053; 83880; 85027

== ENCOUNTER → 2018-03-21 | Outpatient (CLI) | payer MEDICARE ==
[2018-03-21 16:20] LABS: Blood Urea Nitrogen 14 mg/dL (9-20)
--- NOTE | 2018-03-22 08:02 | CT ---
EXAMINATION TYPE: CT angio thor/abd pel aorta DATE OF EXAM: 03/21/2018 COMPARISON: R [id number] HISTORY: I71.4 Abdominal aortic aneurysm, without rupture CT DLP: mGycm CONTRAST: 100ml/ceu128 Small amount of contrast extravasation after scan. About 10ml to left FA near IV site. Risk plus put in and Rad RN notified through email Contrast CTA of the thoracic and abdominal aorta was performed from the lung apex through the base of the pelvis. 3-D reconstruction imaging obtained at a separate workstation. CT Chest: THORACIC AORTA: Stable Ascending thoracic aortic aneurysm measures 4.6 cm in AP dimension versus 4.6 cm previously. Aneurysm distal aortic arch measuring 3.7 cm versus 3.6 cm previously. Ectasia of the descending thoracic aorta. No evidence for dissection. Mild atheromatous changes seen. There is no e vidence for dissection or periaortic collection. LUNGS: There is hyperinflation and emphysematous change redemonstrated. There is bronchial wall thick ening and mild bronchiectasis lower lobes. There is new nodular density left lower lobe adjacent to t he fissure measuring 1 cm which may reflect infiltrate. Follow-up is advised in 4-6 months. MEDIASTINUM: The heart is not enlarged. No evidence for mediastinal mass or adenopathy. HILAR STRUCTURES: No evidence for mass. No hilar adenopathy is appreciated. OTHER: No significant abnormality. CONTRAST CT ABDOMEN AND PELVIS ABDOMINAL AORTA: Infrarenal abdominal aortic aneurysm measuring 3.3 cm AP dimension versus 3.0 cm pre viously. Mural thrombus noted throughout. Branch vessels are patent. Ectasia noted of the abdominal a aurelia and iliac vessels. No evidence for dissection or para-aortic hematoma. LIVER/GB- No significant abnormality is seen. PANCREAS- No significant abnormality is seen. SPLEEN- No significant abnormality is seen. ADRENALS- No significant abnormality is seen. KIDNEYS/BLADDER- No significant abnormality is seen. BOWEL- No Significant abnormality GENITAL ORGANS: No gross abnormality seen. LYMPH NODES- No greater than 1cm abdominal or pelvic lymph nodes are appreciated. OSSEOUS STRUCTURES- No significant abnormality is seen. OTHER- No significant abnormality is seen. IMPRESSION- 1. Essentially stable ascending thoracic and aortic arch aneurysms. 2. Minimal progression of infrarenal abdominal aortic aneurysm. 3. New nodular density left lower lobe may reflect focal infiltrate. Follow-up and 4-6 months is advi sed.
== END | disposition home or self-care (01) ==
LOC: RADCTMAIN 15:44
PROVIDERS: ATTEND Thoracic Surgery (Cardiothoracic Vascular Surgery)
DX: I71.4 Abdominal aortic aneurysm, without rupture (principal); I71.2 Thoracic aortic aneurysm, without rupture; J98.4 Other disorders of lung
CPT/HCPCS: 82565; 84520; 71275; 36415; 74174; Q9967

== ENCOUNTER → 2018-08-04 | Outpatient (CLI) | payer MEDICARE ==
--- NOTE | 2018-08-05 16:32 | PE ---
EXAMINATION TYPE: PET CT fusion skull to thigh DATE OF EXAM: 08/04/2018 COMPARISON: CTA thorax 03/21/2018 Prior PET/CT: None HISTORY: Solitary pulmonary nodule TECHNIQUE: Following the intravenous administration of 11.85 mCi of F-18 FDG, whole body images are performed from the skull base to the midthigh. Images are reviewed on the computer in the coronal, a xial, and sagittal planes. Reconstructed rotating images are created on independent workstation and reviewed on the computer. A localization and attenuation correction CT is performed in conjunction with the PET scan. DLP: 278.13 mGycm SCAN: Initial Blood glucose: 88 mg/dL Average Mediastinum SUV: 1.68 Average Liver SUV: 1.77 FINDINGS: NECK: No abnormal uptake THORAX: Some subtle mild uptake in the right suprahilar region with an SUV value 1.39. This is likely inflammatory in nature. Enlarged node is not evident at this level. Thorax otherwise appears unremar kable. At the left basilar nodule the SUV value is 0.3 likely related to benign process. ABDOMEN: No abnormal uptake PELVIS: No abnormal uptake OSSEOUS STRUCTURES: No abnormal uptake LOCALIZATION CT: Nodule at the left lung base, series 3 image 143, measures 0.8 cm transverse. Monito ring with CT is recommended. This should change, repeat PET/CT could be performed. Emphysematous holguin ges are present. There is prominence of the ascending thoracic aorta 5.3 cm the main pulmonary artery . Main pulmonary bifurcation is 2.5 cm. COMPARISON: Findings appear stable IMPRESSION: 1. No suspicious uptake in the left base lung nodule. Monitoring with CT chest is recommended within 6 months. 2. Ascending thoracic aortic aneurysm
== END ==
LOC: RADPETMAIN 11:18
PROVIDERS: ATTEND Internal Medicine Critical Care Medicine
DX: R91.1 Solitary pulmonary nodule (principal); I71.2 Thoracic aortic aneurysm, without rupture
CPT/HCPCS: 78815; A9552

== ENCOUNTER → 2019-03-01 | Outpatient (CLI) | payer MEDICARE ==
[2019-03-01 14:31] LABS: African American GFR (CKD) >90 (>60 ml/min/1.73 sqM); Blood Urea Nitrogen 15 mg/dL (9-20)
--- NOTE | 2019-03-01 17:14 | CT ---
EXAMINATION TYPE: CT chest w con DATE OF EXAM: 03/01/2019 COMPARISON: Localization CT 08/04/2018 HISTORY: Previous abnormal exam of lung kan. CT DLP: 264 mGycm, Automated exposure control for dose reduction was used. CONTRAST: Performed injected with 100ml mL of Isovue 300. TECHNIQUE: Axial images were obtained at 5 mm thick sections. Reconstructed images are reviewed on [employer] computer in the coronal plane. FINDINGS: Portion of the thyroid visualized is normal. Emphysematous changes are present. There is some probable scarring at the lung apices. The solitary p ulmonary nodule in the left lower lung field currently measures 0.9 cm transverse which appears stabl e from the comparison. Some developing density may be in the lateral right chest lung base measuring 0.5 x 0.8 cm. Series 4 image 59. This was not identified previously. Atelectasis could be considered within the differential . No enlarged mediastinal or hilar adenopathy is evident. The ascending aorta diameter at the level o f the main pulmonary artery is 4.7 cm. The main pulmonary artery diameter at the bifurcation is 2.[address] sections are obtained through the upper abdomen. Abdomen is essentially unremarkable. IMPRESSIONS: 1. Stable left lung base nodule. 2. New density at the lateral right lung base. A new nodule or atelectasis could be considered. Short -term 3 month follow-up is recommended. 3. Non-enlarging ascending thoracic aortic aneurysm
== END ==
LOC: RADCTMAIN 13:51
PROVIDERS: ATTEND Internal Medicine Critical Care Medicine
DX: I71.2 Thoracic aortic aneurysm, without rupture (principal); R91.1 Solitary pulmonary nodule
CPT/HCPCS: 82565; 84520; 71260; 36415; Q9967

== ENCOUNTER 2019-04-17 15:55 | Emergency (ER) | payer MEDICARE ==
[2019-04-17 16:12] VITALS: TEMP 63
[2019-04-17] MEDS ORDERED: KETOROLAC 30 MG/ML 1 ML VIAL IVP STA (16:38)
[2019-04-17] MEDS ORDERED: ONDANSETRON 4 MG/2 ML VIAL IVP STA (16:38)
[2019-04-17] MEDS ORDERED: diphenhydrAMINE 50 MG/ML 1 ML VIAL IVP STA (16:38)
[2019-04-17] MEDS ORDERED: SODIUM CHLORIDE 0.9% 1,000 ML IV STA (16:38)
[2019-04-17] MEDS ORDERED: DEXAMETHASONE SOD PHOSPHATE 10 MG/ML 1 ML VIAL IV STA (16:38)
--- NOTE | 2019-04-17 16:43 | ED ---
General Adult HPI - General Chief complaint: Headache Stated complaint: headache, shoulder pain Time Seen by Provider: 04/17/19 16:30 Source: patient Mode of arrival: wheelchair Limitations: no limitations - History of Present Illness Initial comments: Dictation was produced using [employer] dictation software. please excuse any grammatical, word or spelling errors. Chief Complaint: 83-year-old male presents with approximately 10 days of headaches. History of Present Illness: 83-year-old male who presents today with approximately 10 days of worsening headache. Patient reports that the pain starts in his right paracervical musculature. He states that the pain radiates up the side of his neck and down into shoulder. Patient also complains of some paresthesias to the right scapular area. Patient states that his pain is constant and sharp present at rest however worsened with movement. Patient has any paresthesias to the extremities. Patient's been taking Tylenol regularly since the onset of his symptoms. Patient has no other complaints at this time. Denies any strokelike symptoms. No vision changes. The ROS documented in this emergency department record has been reviewed and confirmed by me. Those systems with pertinent positive or negative responses have been documented in the HPI. All other systems are other negative and/or noncontributory. PHYSICAL EXAM: General Impression: Alert and oriented x3, not in acute distress HEENT: Normocephalic atraumatic, extra-ocular movements intact, pupils equal and reactive to light bilaterally, mucous membranes moist. Neck: Palpable rubbery like masses to the right paracervical musculature measuring 1 x 1 cm, tenderness to palpation of these areas as well as the t rapezius muscle and paracervical musculature Cardiovascular: Heart regular rate and rhythm, S1&S2 audible, no murmurs, rubs or gallops Chest: Lungs clear to auscultation bilaterally, no rhonchi, no wheeze, no rales Abdomen: Bowel sounds present, abdomen soft, non-tender, non-distended, no organomegaly Musculoskeletal: Pulses present and equal in all extremities, no peripheral edema Motor: no focal deficits noted Neurological: CN II-XII grossly intact, no focal motor or sensory deficits noted Skin: Intact with no visualized rashes Psych: Normal affect and mood ED course: 83 y Old male presents with chief complaint of headache. Clinical presentation consistent with pain that is musculoskeletal in origin. There is however palpable rubbery masses to the right paracervical area. Signs upon arrival shows findings within acceptable limits.Return evaluation obtained. CBC, coag panel, metabolic panel, Tylenol is unremarkable. Computed tomography scan of the head and C-spine shows no acute processes. Patient given analgesia with improvement of symptoms. Patient reevaluated bedside and reports dramatic improvement of symptoms. Clinical presentation consistent with cervical radiculopathy versus occipital neuralgia. Patient given prescription for analgesia. Patient clear for discharge. EKG interpretation: Ventricular rate 53, sinus bradycardia,. Interval 184, QS 94, QTC 416. No GA prolongation, no QTC prolongation, no ST or T-wave changes noted. EKG compared to a 2017showing no changes. Overall, this EKG is unremarkable - Related Data Home Medications Medication Instructions Recorded Confirmed Albuterol Sulfate [Proair Hfa] 1 - 2 puff INHALATION RT-Q6H PRN 09/27/17 09/27/17 Doxycycline Hyclate 100 mg PO DAILY 09/27/17 09/27/17 Flecainide [Tambocor] 50 mg PO Q12HR 09/27/17 09/27/17 Niacin 500 mg PO TID 09/27/17 09/27/17 Triamcinolone 0.5% Cream [Kenalog 1 applic TOPICAL BID 09/27/17 09/27/17 0.5% Cream] Warfarin [Coumadin] 5 mg PO W/SUPPER 09/27/17 09/27/17 diphenhydrAMINE [Benadryl] 50 mg PO Q6H PRN 09/27/17 09/27/17 predniSONE 10 mg PO DAILY 09/27/17 09/27/17 Previous Rx's Medication Instructions Recorded Cyclobenzaprine [Flexeril] 10 mg PO BID PRN #14 tab 09/29/17 HYDROcodone/APAP 5-325MG [[place] 1 tab PO Q6HR PRN 3 Days #12 tab 04/17/19 5-325] Allergies Allergy/AdvReac Type Severity Reaction Status Date / Time No Known Allergies Allergy Verified 04/17/19 18:47 Review of Systems ROS Statement: Those systems with pertinent positive or pertinent negative responses have been documented in the HPI. ROS Other: All systems not noted in ROS Statement are negative. Past Medical History Past Medical History: Atrial Fibrillation, COPD Additional Past Medical History / Comment(s): aneurysm History of Any Multi-Drug Resistant Organisms: None Reported Past Surgical History: Hernia Repair Additional Past Surgical History / Comment(s): ULCER REPAIR- 35 YEARS AGO Past Anesthesia/Blood Transfusion Reactions: No Reported Reaction Past Psychological History: No Psychological Hx Reported Smoking Status: Current every day smoker Past Alcohol Use History: Occasional Past Drug Use History: None Reported - Past Family History Mother Family Medical History: Cancer Additional Family Medical History / Comment(s): from [place] (stomach) Father Family Medical History: Myocardial Infarction ([place]) Additional Family Medical History / Comment(s): passes away from aneurysm General Exam Limitations: no limitations Course Vital Signs 04/17/19 04/17/19 04/17/19 16:09 17:01 18:28 Temperature 63 F L Pulse Rate 60 52 L 58 L Respiratory 19 18 18 Rate Blood Pressure 167/95 184/99 O2 Sat by Pulse 98 99 97 Oximetry 04/17/19 18:29 Temperature Pulse Rate Respiratory Rate Blood Pressure 161/90 O2 Sat by Pulse Oximetry Medical Decision Making - Lab Data Result diagrams: 04/17/19 16:40 04/17/19 16:40 Lab Results 04/17/19 04/17/19 04/17/19 Range/Units 16:40 16:40 16:40 WBC 6.2 (3.8-10.6) k/uL RBC 4.51 (4.30-5.90) m/uL Hgb 14.4 (13.0-17.5) gm/dL Hct 43.1 (39.0-53.0) % MCV 95.5 (80.0-100.0) fL MCH 32.0 (25.0-35.0) pg MCHC 33.5 (31.0-37.0) g/dL RDW 13.4 (11.5-15.5) % Plt Count 248 (150-450) k/uL Neutrophils % 65 % Lymphocytes % 18 % Monocytes % 8 % Eosinophils % 5 % Basophils % 1 % Neutrophils # 4.1 (1.3-7.7) k/uL Lymphocytes # 1.1 (1.0-4.8) k/uL Monocytes # 0.5 (0-1.0) k/uL Eosinophils # 0.3 (0-0.7) k/uL Basophils # 0.1 (0-0.2) k/uL PT 15.2 H (9.0-12.0) sec INR 1.5 H (<1.2) APTT 29.3 (22.0-30.0) sec Sodium 134 L (137-145) mmol/L Potassium 4.5 (3.5-5.1) mmol/L Chloride 101 (98-107) mmol/L Carbon Dioxide 27 (22-30) mmol/L Anion Gap 6 mmol/L BUN 13 (9-20) mg/dL Creatinine 0.77 (0.66-1.25) mg/dL Est GFR (CKD-EPI)AfAm >90 (>60 ml/min/1.73 sqM) Est GFR (CKD-EPI)NonAf 85 (>60 ml/min/1.73 sqM) Glucose 88 (74-99) mg/dL Calcium 9.0 (8.4-10.2) mg/dL Acetaminophen <10.0 ug/mL Disposition Clinical Impression: Neck strain Disposition: HOME SELF-CARE Condition: Good Instructions (If sedation given, give patient instructions): Acute Headache (ED) Prescriptions: HYDROcodone/APAP 5-325MG [[place] 5-325] 1 tab PO Q6HR PRN 3 Days #12 tab PRN Reason: Severe Pain Is patient prescribed a controlled substance at d/c from ED?: No Referrals: Anamaria Faria MD [Primary Care Provider] - 1-2 days Time of Disposition: 19:02
[2019-04-17 16:58] LABS: Basophils # (A) 0.1 k/uL (0-0.2); Basophils % (A) 1 %; Eosinophils # (A) 0.3 k/uL (0-0.7); Eosinophils % (A) 5 %; HCT 43.1 % (39.0-53.0); HGB 14.4 gm/dL (13.0-17.5); Lymphocytes # (A) 1.1 k/uL (1.0-4.8); Lymphocytes % (A) 18 %; MCHC 33.5 g/dL (31.0-37.0); MCV 95.5 fL (80.0-100.0); Mean Platelet Volume 7.7; Monocytes # (A) 0.5 k/uL (0-1.0); Monocytes % (A) 8 %; Neutrophils # (A) 4.1 k/uL (1.3-7.7); Neutrophils % (A) 65 %; Platelet Count 248 k/uL (150-450); RBC 4.51 m/uL (4.30-5.90); RDW 13.4 % (11.5-15.5); WBC 6.2 k/uL (3.8-10.6)
[2019-04-17 17:03] VITALS: RESP 18
[2019-04-17 17:07] LABS: INR 1.5 (<1.2); Partial Thromboplastin Time 29.3 sec (22.0-30.0); Prothrombin Time 15.2 sec (9.0-12.0)
[2019-04-17 17:12] LABS: Acetaminophen <10.0 ug/mL; African American GFR (CKD) >90 (>60 ml/min/1.73 sqM); Anion Gap 6 mmol/L; Blood Urea Nitrogen 13 mg/dL (9-20); Carbon Dioxide 27 mmol/L (22-30); Chloride 101 mmol/L (98-107); Glucose 88 mg/dL (74-99); Non-African American GFR(CKD) 85 (>60 ml/min/1.73 sqM); Potassium 4.5 mmol/L (3.5-5.1); Sodium 134 mmol/L (137-145)
--- NOTE | 2019-04-17 17:53 | PN ---
PROGRESS NOTE OFFICE VISIT: DATE OF VISIT: 04/17/2019. BRIEF HISTORY: The patient is an 83-year-old male whom I had previously seen for ascending aortic aneurysm with mild aneurysmal dilatation of the proximal descending thoracic aorta. He had a repeat CT scan on March 01 which shows no change in his aortic disease. He does have some small bilateral pulmonary nodules noted on the CT scan. These look very unimpressive to me, and I think they could be followed with another CT scan in a year. Radiology recommended a CT scan in [address] Faria has ordered this. I told the patient that this is likely overkill, and I would not get one before 6 months, but that is up to him and his doctor. IMPRESSION: Stable aneurysmal disease with small benign-appearing bilateral pulmonary nodules, likely associated with some atelectasis. MMODL / IJN: [id number] /
--- NOTE | 2019-04-17 18:18 | CT ---
EXAMINATION TYPE: CT brain niki nice DATE OF EXAM: 04/17/2019 COMPARISON: None HISTORY: Right shoulder, neck and head pain CT DLP: 1226.3 mGycm Automated exposure control for dose reduction was used. There is cerebral cortical atrophy. There is no mass effect nor midline shift. There is no sign of in tracranial hemorrhage. Calvarium is intact. Skull base is intact. Cervical vertebra shows disc space narrowing from C2 to C5. The posterior elements are intact. There is hypertrophic multilevel cervical facet arthropathy. Prevertebral soft tissues are intact. IMPRESSION: Cerebral atrophy. No acute intracranial abnormality. Spondylotic changes in the cervical spine. No fracture.
[2019-04-17 19:20] VITALS: BP 148/72; PULSE 78
== END 2019-04-17 19:18 | disposition home or self-care (01) ==
LOC: EC 15:55
DX: S16.1XXA Strain of muscle, fascia and tendon at neck level, initial encounter (principal); R22.1 Localized swelling, mass and lump, neck; R00.1 Bradycardia, unspecified; I48.91 Unspecified atrial fibrillation; J44.9 Chronic obstructive pulmonary disease, unspecified; F17.200 Nicotine dependence, unspecified, uncomplicated; Z79.01 Long term (current) use of anticoagulants; Z79.51 Long term (current) use of inhaled steroids; Z79.52 Long term (current) use of systemic steroids; Z79.899 Other long term (current) drug therapy; X50.9XXA Other and unspecified overexertion or strenuous movements or postures, initial encounter
CPT/HCPCS: 36415; 93005; 80048; 85025; 85610; 85730; 72125; 70450; 99284; 96374; 96375 ×3; 96361; G0480; J1200; J1100; J2405; J1885; 80329

== ENCOUNTER → 2019-05-23 | Outpatient (CLI) | payer MEDICARE ==
--- NOTE | 2019-05-24 08:57 | MR ---
EXAMINATION TYPE: MR cervical spine wo con DATE OF EXAM: 05/23/2019 COMPARISON: 04/17/2019 HISTORY: Neck pain, headaches, rt arm weakness TECHNIQUE: Multiplanar, multisequence images of the cervical spine were acquired. C2-C3: Severe degenerative disc disease with posterior spondylosis. Facet arthropathy noted with mild bilateral foraminal encroachment. No Canal stenosis. No focal disc herniation. C3-C4: Significant degenerative disc disease with 2 to 3 mm retrolisthesis. There is mild effacement of thecal sac. There is facet arthropathy and foraminal encroachment. Findings result in mild canal s tenosis and severe bilateral foraminal encroachment. C4-C5: Degenerative disc disease with disc bulging capped by spur mild effacement of thecal sac but n o canal stenosis. Uncovertebral joint hypertrophy and facet arthropathy contribute to severe bilatera l foraminal encroachment. C5-C6: No disc herniation or canal stenosis. Facet arthropathy and uncovertebral joint hypertrophy ar e noted. Neural foramina remain patent. C6-C7: No evidence for degenerative disc disease. No disc bulge/herniation or protrusion. No Canal stenosis. Foramina are patent bilaterally. C7-T1: No evidence for degenerative disc disease. No disc bulge/herniation or protrusion. No Canal stenosis. Foramina are patent bilaterally. Cervical segments are intact. Curvature of the cervical spine noted with the 2 to 3 mm retrolisthesis of C3 relative to C4 and 1 mm retrolisthesis of C4 relative to C5.. Cervical spinal cord is of norm al signal. Craniovertebral junction relationships are within normal limits. IMPRESSION: 1. Severe multilevel degenerative disc disease with retrolisthesis at C3-C4. At C3-C4 findings result in severe bilateral foraminal encroachment and mild to moderate canal stenosis. Disc bulging capped by spur and hypertrophic changes of the uncovertebral joints and facets are contributory. 2. Multilevel foraminal encroachment secondary to cervical spondylosis and hypertrophic change of the facet and uncovertebral joints. 3. Severe bilateral foraminal encroachment C4-C5 secondary to hypertrophic cervical spondylosis.
== END | disposition home or self-care (01) ==
LOC: RADMRIMAIN 15:38
PROVIDERS: ATTEND Orthopaedic Surgery
DX: M48.02 Spinal stenosis, cervical region (principal); M50.221 Other cervical disc displacement at C4-C5 level; M50.31 Other cervical disc degeneration, high cervical region; M43.12 Spondylolisthesis, cervical region; M47.812 Spondylosis without myelopathy or radiculopathy, cervical region
CPT/HCPCS: 72141

== ENCOUNTER → 2019-05-29 | Outpatient (CLI) | payer MEDICARE ==
[2019-05-29 13:32] VITALS: BP 110/68; PULSE 79; RESP 20
--- NOTE | 2019-05-30 06:05 | P.PAINCN ---
History of Present Illness - Reason for Consult Consult date: 05/29/19 - History of Present Illness This 83 years old male with a history of neck pain, started 2 years ago he denies any initiating event, but he reported that over the last few months, the intensity of the pain increased significantly, this fluctuated with 5/10 increased to 10 over 10 with any activity or neck movement, and still the pain interfering with the quality of life, and the pain is not controlled with the current pain medication is getting from his primary care, he continued to use [place] without any significant benefit, he denies any side effects of the medication, the patient prescribed the pain as dull aching pain, localized at the base of the neck and radiated to the top of the head and towards the right shoulder blade area, he feels his right shoulder is numb, he denies any motor or sensory deficit in the upper or lower extremities, he denies any fever or night sweats, he denies any change in bowel movements or urination Past Medical History Past Medical History: Atrial Fibrillation, COPD Additional Past Medical History / Comment(s): aneurysm History of Any Multi-Drug Resistant Organisms: None Reported Past Surgical History: Hernia Repair Additional Past Surgical History / Comment(s): ULCER REPAIR- 35 YEARS AGO Past Anesthesia/Blood Transfusion Reactions: No Reported Reaction Past Psychological History: No Psychological Hx Reported Smoking Status: Current every day smoker Past Alcohol Use History: Occasional Past Drug Use History: None Reported - Past Family History Mother Family Medical History: Cancer Additional Family Medical History / Comment(s): from [place] (stomach) Father Family Medical History: Myocardial Infarction ([place]) Additional Family Medical History / Comment(s): passes away from aneurysm Medications and Allergies Home Medications Medication Instructions Recorded Confirmed Type Albuterol Sulfate [Proair Hfa] 1 - 2 puff INHALATION RT-Q6H PRN 09/27/17 05/29/19 History Doxycycline Hyclate 100 mg PO BID 09/27/17 05/29/19 History Flecainide [Tambocor] 50 mg PO Q12HR 09/27/17 05/29/19 History Niacin 500 mg PO DAILY 09/27/17 05/29/19 History Triamcinolone 0.5% Cream [Kenalog 1 applic TOPICAL BID 09/27/17 05/29/19 History 0.5% Cream] Warfarin [Coumadin] 7.5 mg PO W/SUPPER 09/27/17 05/29/19 History diphenhydrAMINE [Benadryl] 50 mg PO Q6H PRN 09/27/17 09/27/17 History HYDROcodone/APAP 5-325MG [[place] 1 tab PO Q6HR PRN 3 Days #12 tab 04/17/19 05/29/19 Rx 5-325] Multivitamin [Multivitamins Adult 1 tab PO DAILY 05/29/19 05/29/19 History Gummies] Allergies Allergy/AdvReac Type Severity Reaction Status Date / Time No Known Allergies Allergy Verified 05/29/19 13:14 Physical Exam Vitals: Vital Signs Pulse Resp BP Pulse Ox 05/29/19 13:20 79 20 110/68 97 Intake and Output 05/29/19 05/29/19 05/30/19 14:59 22:59 06:59 Other: Weight 62.142 kg REVIEW OF ORGAN SYSTEMS: CONSTITUTIONAL: No fevers or chills. No recent weight loss. EYES: denies troubles with vision. HEENT: No difficulties with hearing. No nosebleeds. No difficulty swallowing. RESPIRATORY: Denies any troubles with breathing or dyspnea on exertion. smoker CARDIOVASCULAR: Denies any chest pain, palpitations, or recent heart attacks. GASTROINTESTINAL: Denies fatty food intolerance. Has change in bowel habits and gas bloat. GENITOURINARY: Denies any blood in urine. Has increased urinary frequency. NEUROLOGICAL: + Neck pain. No seizure disorders or headaches. MUSCULOSKELETAL: Neck pain SKIN:no skin cancer. No rash. PSYCHIATRIC: Denies current depression or suicidal thoughts. ENDOCRINE: Denies current thyroid disorders. Denies any blood sugar glucose intolerance. HEME/LYMPHATIC: Denies any lumps and bumps around the neck. History of deep venous thrombosis. ALLERGY/IMMUNOLOGY: No immunoglobulin therapy. No immune deficiencies. BREAST: Denies current breast lumps, pain or nipple discharge. Physical Examinations : Constitutiona : Cooperative , not in acute distress . HEENT : nech : supple , no Lymphadenopathy , normal thyroid size . : eyes no ptosis , no icterus, no photophobia . : ENT normal of hearing , normal oropharynx , no Thrush . Respiratory : Chest clear to auscultations Bilaterally , no wheezing , no Rhonchi . Cardiovascula : regular rate and rhythem , S1 , S2 , no S3 , no S4. Gastrointestina : abdomen soft no tenderness , bowel sounds , no organomegally . Genitourinary : Defferred . neurologic : Cranial nerve II to XII intact , no focal neurological deffecit . psychatric : alert , oriented X 3 , appropriate affect , intact judgment and insight . Lymphatic : no Lymphadenopathy . musculoskeltal : Cervical Spine motor stregnth in the deltoid and biceps, normal right side , normal Left side motor stregnth biceps and the wrist extensors normal right side ,normal left side . motor stregnth in the triceps muscle . normal Right side , normal Left side deep tendon reflexes= normal at the biceps , normal at Brachioradialis , normal at triceps. cervical facet loading test: positive on the right side Spurling test= positive on the right side Neck distraction test= positive on the right side Julius sign= positive On the right side. Lumber spine moter stegnth lower extremities ,thigh and legs 5/5 Right side , 5/5 Left side Results Comments: MRI of the cervical spine= C2 3 C3 4 C4 5 cervical degenerative disc disease and cervical facet arthropathy at C5 6 there is facet degeneration Assessment and Plan Plan: Assessment and plan= chronic severe neck pain secondary to cervical degenerative disc disease and cervical spondylosis with cervical facet arthropathy. Clinically most of the pain is coming from the facetogenic component, patient will be scheduled to have right-sided medial branch block at C2, C3, C4, C5 x2 , and if we get positive result then we will proceed with the RFA, would have to hold Coumadin before the procedure and we will get approval from the tube winder ,patient will continue to use [place] as prescribed by his primary care Time with Patient: Greater than 30 PQRS Measure Charge Sheet Measure #130: Documentation of Current Meds in Medical Chart: Patient's medications documented in chart Measure #226: Tobacco Use: Screen & Cessation Intervention: Pt screened for tobacco use AND intervention given Measure #111: Pneumonia Vaccination: Pneumococcal vaccine NOT administered or previously given Measure #47: Advance Care Plan: Advance care planning discussed & documented, pt chose/unable to give Measure #412: Opioid Treatment Agreement: No documentation of signed opioid treatment agreement Measure #408: Opioid Therapy Follow-up Evaluation: Patient had NO f/u eval m inimum every 3 months during opioid therapy Measure #317: Preventitive Care & Scrn High Bld Press & F/U: Normal blood pressure, f/u not required Measure #128: Body Mass Index (BMI) Screening & Follow-up: BMI documented BELOW normal parameters - f/u documented Measure #131: Pain Assessment & Follow-up: Pain positive & plan documented, Follow-up scheduled Measure #431: Unhealthy Alcohol Use Preventative Care & Scrn: Patient not identified as an unhealthy alcohol user PQRS Narrative: Smoking Status Current every day smoker Blood Pressure 110/68 Pain Intensity [Head] 10 Scale Used Numeric (1 - 10) Hx Alcohol Use (MH) No Home Medications: Ambulatory Orders Albuterol Sulfate [Proair Hfa] 1 - 2 puff INHALATION RT-Q6H PRN 09/27/17 Doxycycline Hyclate 100 mg PO BID 09/27/17 Flecainide [Tambocor] 50 mg PO Q12HR 09/27/17 Niacin 500 mg PO DAILY 09/27/17 Triamcinolone 0.5% Cream [Kenalog 0.5% Cream] 1 applic TOPICAL BID 09/27/17 Warfarin [Coumadin] 7.5 mg PO W/SUPPER 09/27/17 diphenhydrAMINE [Benadryl] 50 mg PO Q6H PRN 09/27/17 HYDROcodone/APAP 5-325MG [[place] 5-325] 1 tab PO Q6HR PRN 3 Days #12 tab 04/17/19 Multivitamin [Multivitamins Adult Gummies] 1 tab PO DAILY 05/29/19
== END | disposition home or self-care (01) ==
LOC: PNWHC3 13:04
PROVIDERS: ATTEND Specialist
DX: G89.29 Other chronic pain (principal); M50.30 Other cervical disc degeneration, unspecified cervical region; M47.812 Spondylosis without myelopathy or radiculopathy, cervical region; M46.92 Unspecified inflammatory spondylopathy, cervical region; I48.91 Unspecified atrial fibrillation; J44.9 Chronic obstructive pulmonary disease, unspecified; F17.200 Nicotine dependence, unspecified, uncomplicated; Z79.2 Long term (current) use of antibiotics; Z79.01 Long term (current) use of anticoagulants; Z79.891 Long term (current) use of opiate analgesic; Z79.899 Other long term (current) drug therapy
CPT/HCPCS: 99211

== ENCOUNTER 2019-06-13 09:07 | Day surgery (SDC) | payer MEDICARE ==
[2019-06-12 10:03] VITALS: BMI 18.6
[~2019-06-13 09:07] MED LIST: IOPAMIDOL M200 10 ML VIAL ONE; LACTATED RINGERS 1,000 ML IV SCH; LIDOCAINE 4% (PF) 5 ML AMP ONE
[2019-06-13 10:34] VITALS: BP 168/89; RESP 18; TEMP 98.4
[2019-06-13] MEDS ORDERED: LIDOCAINE 1% 20 ML VIAL (10MG/ML) FOR IV START INTRADERMA ONE (10:46)
--- NOTE | 2019-06-13 11:35 | P.PCN ---
Date of Procedure: 06/13/19 Procedure(s) Performed: PREOPERATIVE DIAGNOSIS: Cervical Spondylosis with Facet Arthropathy.without myelopathy POSTOPERATIVE DIAGNOSIS: Cervical Spondylosis, Facet Arthropathy. Without myelopathy PROCEDURES: Right sided Diagnostic C2, C3, C4, C5 medial branch blocks for facets C2-3, C3-4, C4-5, with fluoroscopic guidance ANESTHESIA: Local with 1% lidocaine; no IV sedation was used Fluoroscopy was used for the procedure and images were saved in the radiology portion of the chart. EBL: Minimal PROCEDURE INDICATION: The patient with neck pain secondary to cervical arthropathy unresponsive to more conservative treatments. PROCEDURE DESCRIPTION / TECHNIQUE: The patient was seen and identified in the preoperative area. Risks, benefits, complications, and alternatives were discussed with the patient, the patient agreed to proceed with the procedure and signed the consent. IV was started. Vital signs remained stable throughout the procedure. Patient was taken to the OR and time out was completed. The patient was placed in the supine position on the procedure table. A pillow was placed under the patients chest to increase the cervical interlaminar space. The cervical area was prepped and draped in the usual sterile fashion. A timeout was performed. Vital signs were closely monitored during the procedure. Using cross-table lateral fluoroscopy, the centroid of the trapezoid of the first level was identified, marked, and localized with 1% lidocaine 0.2 ml at each level for skin and subcutaneous infiltration . Subsequently, a 25 G 3.5" Quinke spinal needle was advanced guided by fluoroscopy to the centroid of the trapezoid . [place] tip position was confirmed using lateral fluoroscopy.0.2 mL of Isovue-200 was injected at each level, revealing no intravascular uptake. Subsequently, 0.5 mL of [4% lidocaine] was injected at each level. COMPLICATIONS: No acute complications. DISPOSITION / PLANS: The patient was placed in a supine position and transferred to the recovery area in a stable condition for observation and was discharged from the recovery room after meeting discharge criteria. Home discharge instructions given to the patient by the staff. The patient will follow up for repeat procedure in 2 weeks.
[2019-06-13] MEDS ORDERED: IV FLUID CONTINUATION 1,000 ML IV ONE (11:36)
[2019-06-13 11:38] VITALS: PULSE 78
--- NOTE | 2019-06-13 14:07 | FL ---
EXAMINATION TYPE: FL guided pain mgmt statistic DATE OF EXAM: 06/13/2019 HISTORY: Fluoroscopy time 10 seconds of fluoroscopy provided. IMPRESSION: 1. Fluoroscopy time.
== END 2019-06-13 12:07 | disposition home or self-care (01) ==
LOC: ORPAIN 09:07
PROVIDERS: ATTEND Anesthesiology
DX: R51 Headache (principal); M47.812 Spondylosis without myelopathy or radiculopathy, cervical region
CPT/HCPCS: 64490; 64491; 64492; J2001; Q9966

== ENCOUNTER → 2019-06-13 | Outpatient (CLI) | payer MEDICARE ==
[2019-06-13 09:11] LABS: INR 1.1 (<1.2); Prothrombin Time 10.9 sec (9.0-12.0)
== END | disposition home or self-care (01) ==
LOC: LABWHC1 08:46
PROVIDERS: ATTEND Specialist
DX: Z51.81 Encounter for therapeutic drug level monitoring (principal); Z79.01 Long term (current) use of anticoagulants
CPT/HCPCS: 36415; 85610

== ENCOUNTER → 2019-06-27 | Day surgery (SDC) | payer MEDICARE ==
[2019-06-26 11:05] VITALS: BMI 19.0
[~2019-06-27] MED LIST changes: -IOPAMIDOL M200 10 ML VIAL ONE; +IV FLUID CONTINUATION 1,000 ML IV ONE; -LIDOCAINE 4% (PF) 5 ML AMP ONE; +MIDAZOLAM 2 MG/2 ML VIAL ONE; +ROPIVACAINE 5MG/ML 20ML VIAL ONE; +fentaNYL (PF) 50 MCG/ML 2 ML AMP ONE; +methylPREDNISolone ACETATE 40 MG/ML 1 ML VIAL ONE
[2019-06-27 09:29] VITALS: RESP 16; TEMP 96.9
[2019-06-27 09:33] LABS: Glucose,Whole Blood 77 mg/dL (75-99)
[2019-06-27 09:35] LABS: INR 1.3 (<1.2); Prothrombin Time 12.7 sec (9.0-12.0)
[2019-06-27 10:42] VITALS: BP 177/86; PULSE 67
--- NOTE | 2019-06-27 12:20 | FL ---
Fluoroscopy HISTORY: Pain 12 seconds fluoroscopy time supplied to the referring clinician. 3 intraoperative C-arm images docum ent the procedure. See dictated report from anesthesia.
--- NOTE | 2019-06-27 14:31 | P.PCN ---
Date of Procedure: 06/27/19 Procedure(s) Performed: PREOPERATIVE DIAGNOSIS: Cervical Spondylosis with Facet Arthropathy.without myelopathy POSTOPERATIVE DIAGNOSIS: Cervical Spondylosis Facet Arthropathy. Without myelopathy PROCEDURES: Diagnostic right. C2 , C3, C4 , C5 medial branch blocks, with fluoroscopic guidance (fluoroscopy images available in radiology department ) ( to target the facet joint at right C2-3 ,C3-4 , C4- 5 ) ANESTHESIA: Local with 1% lidocaine; moderate sedation with Versed.2 mg , and fentanyl 50 micrograms EBL: Minimal PROCEDURE INDICATION: The patient with neck pain secondary to cervical arthropathy unresponsive to more conservative treatments. PROCEDURE DESCRIPTION / TECHNIQUE: The patient was seen and identified in the preoperative area. Risks, benefits, complications, and alternatives were discussed with the patient, the patient agreed to proceed with the procedure and signed the consent. IV was started. Vital signs remained stable throughout the procedure. Patient was taken to the OR and time out was completed. The patient was placed in the prone position on the procedure table. A pillow was placed under the patients chest to increase the cervical interlaminar space. The cervical area was prepped and draped in the usual sterile fashion. Critical pause was taken. Vital signs were closely monitored during the procedure. Conscious sedation was used during the procedure to decrease patients anxiety. Using cross-table lateral fluoroscopy, the centroid of the trapezoid of right C2 , C3, C4 , C5, was identified, marked, and localized with 1% lidocaine 1 ml at each level for skin and Sub Q infiltrations . Subsequently, a 25 G 4 spinal needle was advanced guided by fluoroscopy to the centroid of the trapezoid of Right C2 ,C3, C4 , C5 [place] tip position was confirmed at the centroid of the trapezoids of Right C2 ,C3 , C4 , C5 with anteroposterior fluoroscopy. Subsequently, 2 ml of preservative-free Ropivacaine 0.5% mixed with Depo- Medrol 20 mg and half ml of the mixture was injected after negative aspiration for blood and CSF. [place] was then removed intact . COMPLICATIONS: No acute complications DISPOSITION / PLANS: The patient was placed in a supine position and transferred to the recovery area in a stable condition for observation and was discharged from the recovery room after meeting discharge criteria. Home discharge instructions given to the patient by the staff. The patient was reexamined prior to discharge. The patient will schedule a follow up in the clinic in 2-4 weeks. note = technically it was difficult to visualize the facet joint at C3, 4 ,5, and we have to do a lot of repositioning, I recommend next time to try lateral position If possible
--- NOTE | 2019-06-27 14:31 | P.GSHP ---
History of Present Illness H&P Date: 06/27/19 This is a 24 years old male with a history of chronic and severe neck pain is diagnosed with cervical degenerative disc disease and cervical spondylosis with cervical facet arthropathy and is here today to have the second diagnostic medial branch block cervical area at C2, C3 ,C4, C5 Past Medical History Past Medical History: Atrial Fibrillation, COPD Additional Past Medical History / Comment(s): aneurysm. rash to chest and back History of Any Multi-Drug Resistant Organisms: None Reported Past Surgical History: Hernia Repair Additional Past Surgical History / Comment(s): ULCER REPAIR- 35 YEARS AGO Past Anesthesia/Blood Transfusion Reactions: No Reported Reaction Smoking Status: Current every day smoker - Past Family History Father Family Medical History: Myocardial Infarction ([place]) Additional Family Medical History / Comment(s): passes away from aneurysm Mother Family Medical History: Cancer Additional Family Medical History / Comment(s): from [place] (stomach) Medications and Allergies Home Medications Medication Instructions Recorded Confirmed Type Albuterol Sulfate [Proair Hfa] 1 - 2 puff INHALATION RT-Q6H PRN 09/27/17 06/26/19 History Doxycycline Hyclate 100 mg PO BID 09/27/17 06/26/19 History Flecainide [Tambocor] 50 mg PO Q12HR 09/27/17 06/26/19 History Niacin 500 mg PO DAILY 09/27/17 06/26/19 History Triamcinolone 0.5% Cream [Kenalog 1 applic TOPICAL BID 09/27/17 06/26/19 History 0.5% Cream] Warfarin [Coumadin] 7.5 mg PO W/SUPPER 09/27/17 06/26/19 History diphenhydrAMINE [Benadryl] 50 mg PO QID 09/27/17 06/27/19 History HYDROcodone/APAP 5-325MG [[place] 1 tab PO Q6HR PRN 3 Days #12 tab 04/17/19 06/26/19 Rx 5-325] Multivitamin [Multivitamins Adult 1 tab PO DAILY 05/29/19 06/26/19 History Gummies] Fluticasone/Salmeterol [Advair 1 inhalation PO BID 06/12/19 06/26/19 History 250-50 Diskus] Acetaminophen Tab [Tylenol Tab] 500 mg PO DAILY PRN 06/26/19 06/26/19 History predniSONE 3 mg PO DAILY 06/26/19 06/26/19 History Allergies Allergy/AdvReac Type Severity Reaction Status Date / Time No Known Allergies Allergy Verified 06/26/19 10:56 Surgical - Exam Physical Examinations : -Constitutiona : Cooperative , not in acute distress . -HEENT : nech : supple , no Lymphadenopathy , normal thyroid size . : eyes : no ptosis , no icterus, no photophobia . - neurologic : Cranial nerve II to XII intact , no focal neurological deffecit . -psychatric : alert , oriented X 3 , appropriate affect , intact judgment and insight . -Lymphatic : no Lymphadenopathy . - musculoskeltal : Cervical Spine motor stregnth in the deltoid and biceps, normal right side , normal Left side motor stregnth biceps and the wrist extensors normal right side ,normal left side . motor stregnth in the triceps muscle . normal Right side , normal Left side deep tendon reflexes normal at the biceps , normal at Brachioradialis , normal at triceps. cervical facet loading test: Positive Bilaterally Spurling test positive bilaterally. Neck distraction test positive bilaterally. Julius sign positive bilaterally. Lumber spine moter stegnth lower extremities ,thigh and legs 5/5 Right side , 5/5 Left side Results - Imaging Comments: Patient HELD Coumadin since June 22 Assessment and Plan Plan: Assessment and plan= chronic severe neck pain secondary to cervical degenerative disc disease and cervical spondylosis with cervical facet arthropathy. Clinically most of the pain is coming from the facetogenic component, patient to have right-sided medial branch block at C2, C3, C4, C5 Time with Patient: Less than 30
== END ==
LOC: ORPAIN 08:57
PROVIDERS: ATTEND Specialist
DX: G89.29 Other chronic pain (principal); M47.812 Spondylosis without myelopathy or radiculopathy, cervical region; I48.91 Unspecified atrial fibrillation; J44.9 Chronic obstructive pulmonary disease, unspecified; F17.200 Nicotine dependence, unspecified, uncomplicated; Z82.49 Family history of ischemic heart disease and other diseases of the circulatory system; Z80.0 Family history of malignant neoplasm of digestive organs; Z79.01 Long term (current) use of anticoagulants; Z79.52 Long term (current) use of systemic steroids; Z79.899 Other long term (current) drug therapy; Z79.891 Long term (current) use of opiate analgesic
CPT/HCPCS: 85610; 64490; 64491; 64492; J2250; J1030; J3010; J2795; 99152; 99153

== ENCOUNTER → 2019-06-27 | Outpatient (CLI) | payer MEDICARE ==
--- NOTE | 2019-06-27 09:34 | P.GSHP ---
History of Present Illness H&P Date: 06/27/19 This is a 24 years old male with a history of chronic and severe neck pain is diagnosed with cervical degenerative disc disease and cervical spondylosis with cervical facet arthropathy and is here today to have the second diagnostic medial branch block cervical area at C2, C3 ,C4, C5 Past Medical History Past Medical History: Atrial Fibrillation, COPD Additional Past Medical History / Comment(s): aneurysm. rash to chest and back History of Any Multi-Drug Resistant Organisms: None Reported Past Surgical History: Hernia Repair Additional Past Surgical History / Comment(s): ULCER REPAIR- 35 YEARS AGO Past Anesthesia/Blood Transfusion Reactions: No Reported Reaction Smoking Status: Current every day smoker - Past Family History Mother Family Medical History: Cancer Additional Family Medical History / Comment(s): from [place] (stomach) Father Family Medical History: Myocardial Infarction ([place]) Additional Family Medical History / Comment(s): passes away from aneurysm Medications and Allergies Home Medications Medication Instructions Recorded Confirmed Type Albuterol Sulfate [Proair Hfa] 1 - 2 puff INHALATION RT-Q6H PRN 09/27/17 06/26/19 History Doxycycline Hyclate 100 mg PO BID 09/27/17 06/26/19 History Flecainide [Tambocor] 50 mg PO Q12HR 09/27/17 06/26/19 History Niacin 500 mg PO DAILY 09/27/17 06/26/19 History Triamcinolone 0.5% Cream [Kenalog 1 applic TOPICAL BID 09/27/17 06/26/19 History 0.5% Cream] Warfarin [Coumadin] 7.5 mg PO W/SUPPER 09/27/17 06/26/19 History diphenhydrAMINE [Benadryl] 50 mg PO QID 09/27/17 06/27/19 History HYDROcodone/APAP 5-325MG [[place] 1 tab PO Q6HR PRN 3 Days #12 tab 04/17/19 06/26/19 Rx 5-325] Multivitamin [Multivitamins Adult 1 tab PO DAILY 05/29/19 06/26/19 History Gummies] Fluticasone/Salmeterol [Advair 1 inhalation PO BID 06/12/19 06/26/19 History 250-50 Diskus] Acetaminophen Tab [Tylenol Tab] 500 mg PO DAILY PRN 06/26/19 06/26/19 History predniSONE 3 mg PO DAILY 06/26/19 06/26/19 History Allergies Allergy/AdvReac Type Severity Reaction Status Date / Time No Known Allergies Allergy Verified 06/26/19 10:56 Surgical - Exam Physical Examinations : -Constitutiona : Cooperative , not in acute distress . -HEENT : nech : supple , no Lymphadenopathy , normal thyroid size . : eyes : no ptosis , no icterus, no photophobia . - neurologic : Cranial nerve II to XII intact , no focal neurological deffecit . -psychatric : alert , oriented X 3 , appropriate affect , intact judgment and insight . -Lymphatic : no Lymphadenopathy . - musculoskeltal : Cervical Spine motor stregnth in the deltoid and biceps, normal right side , normal Left side motor stregnth biceps and the wrist extensors normal right side ,normal left side . motor stregnth in the triceps muscle . normal Right side , normal Left side deep tendon reflexes normal at the biceps , normal at Brachioradialis , normal at triceps. cervical facet loading test: Positive Bilaterally Spurling test positive bilaterally. Neck distraction test positive bilaterally. Julius sign positive bilaterally. Lumber spine moter stegnth lower extremities ,thigh and legs 5/5 Right side , 5/5 Left side Results - Imaging Comments: Patient HELD Coumadin since June 22 Assessment and Plan Plan: Assessment and plan= chronic severe neck pain secondary to cervical degenerative disc disease and cervical spondylosis with cervical facet arthropathy. Clinically most of the pain is coming from the facetogenic component, patient to have right-sided medial branch block at C2, C3, C4, C5 Time with Patient: Less than 30
--- NOTE | 2019-06-27 10:21 | P.PCN ---
Date of Procedure: 06/27/19 Procedure(s) Performed: PREOPERATIVE DIAGNOSIS: Cervical Spondylosis with Facet Arthropathy.without myelopathy POSTOPERATIVE DIAGNOSIS: Cervical Spondylosis Facet Arthropathy. Without myelopathy PROCEDURES: Diagnostic right. C2 , C3, C4 , C5 medial branch blocks, with fluoroscopic guidance (fluoroscopy images available in radiology department ) ( to target the facet joint at right C2-3 ,C3-4 , C4- 5 ) ANESTHESIA: Local with 1% lidocaine; moderate sedation with Versed.2 mg , and fentanyl 50 micrograms EBL: Minimal PROCEDURE INDICATION: The patient with neck pain secondary to cervical arthropathy unresponsive to more conservative treatments. PROCEDURE DESCRIPTION / TECHNIQUE: The patient was seen and identified in the preoperative area. Risks, benefits, complications, and alternatives were discussed with the patient, the patient agreed to proceed with the procedure and signed the consent. IV was started. Vital signs remained stable throughout the procedure. Patient was taken to the OR and time out was completed. The patient was placed in the prone position on the procedure table. A pillow was placed under the patients chest to increase the cervical interlaminar space. The cervical area was prepped and draped in the usual sterile fashion. Critical pause was taken. Vital signs were closely monitored during the procedure. Conscious sedation was used during the procedure to decrease patients anxiety. Using cross-table lateral fluoroscopy, the centroid of the trapezoid of right C2 , C3, C4 , C5, was identified, marked, and localized with 1% lidocaine 1 ml at each level for skin and Sub Q infiltrations . Subsequently, a 25 G 4 spinal needle was advanced guided by fluoroscopy to the centroid of the trapezoid of Right C2 ,C3, C4 , C5 [place] tip position was confirmed at the centroid of the trapezoids of Right C2 ,C3 , C4 , C5 with anteroposterior fluoroscopy. Subsequently, 2 ml of preservative-free Ropivacaine 0.5% mixed with Depo- Medrol 20 mg and half ml of the mixture was injected after negative aspiration for blood and CSF. [place] was then removed intact . COMPLICATIONS: No acute complications DISPOSITION / PLANS: The patient was placed in a supine position and transferred to the recovery area in a stable condition for observation and was discharged from the recovery room after meeting discharge criteria. Home discharge instructions given to the patient by the staff. The patient was reexamined prior to discharge. The patient will schedule a follow up in the clinic in 2-4 weeks. note = technically it was difficult to visualize the facet joint at C3, 4 ,5, and we have to do a lot of repositioning, I recommend next time to try lateral position If possible
== END | disposition home or self-care (01) ==
LOC: LABWHC1 08:43
PROVIDERS: ATTEND Hospitalist
DX: Z53.9 Procedure and treatment not carried out, unspecified reason (principal)

== ENCOUNTER → 2019-07-10 | Outpatient (CLI) | payer MEDICARE ==
[2019-07-10 13:51] VITALS: BP 114/70; PULSE 64; RESP 18
--- NOTE | 2019-07-11 11:00 | P.PAINPG ---
Subjective Progress Note Date: 07/10/19 This is a follow-up visit for this 83 years old male with a chronic history of significant neck pain, is diagnosed with cervical spondylosis with cervical facet arthropathy and cervical degenerative disc disease, we have done diagnostic medial branch block cervical area at C2, C3, C4, C5 ( RIGHT ) X2 patient gets excellent pain relief, and he reported that currently his pain is 0 his ability to function and he denies any motor or sensory deficit he denies any pain in the cervical area Objective - Vital Signs Vital signs: Vital Signs Temp Pulse 64 07/10/19 13:45 Resp 18 07/10/19 13:45 BP 114/70 07/10/19 13:45 Pulse Ox - Exam -Constitutiona : Cooperative , not in acute distress . -HEENT : nech : supple , no Lymphadenopathy , normal thyroid size . : eyes : no ptosis , no icterus, no photophobia . - neurologic : Cranial nerve II to XII intact , no focal neurological deffecit . -psychatric : alert , oriented X 3 , appropriate affect , intact judgment and insight . -Lymphatic : no Lymphadenopathy . - musculoskeltal : Cervical Spine motor stregnth in the deltoid and biceps, normal right side , normal Left side motor stregnth biceps and the wrist extensors normal right side ,normal left side . motor stregnth in the triceps muscle . normal Right side , normal Left side deep tendon reflexes normal at the biceps , normal at Brachioradialis , normal at triceps. cervical facet loading test: Positive Bilaterally Spurling test positive bilaterally. Neck distraction test positive bilaterally. Julius sign positive bilaterally. Lumber spine moter stegnth lower extremities ,thigh and legs 5/5 Right side , 5/5 Left side Assessment and Plan Plan: Assessment and plan= chronic severe neck pain secondary to cervical spondylosis with cervical facet arthropathy without myelopathy, and cervical degenerative disc disease Patient reported that pain improved completely, after diagnostic medial branch block, and currently has 0 pain in the cervical area Patient will follow up in the pain clinic, when necessary, and if he had pain in the right side cervical area we can do RFA of the right-sided medial branch C2 , C3 , C4,C5 Patient had to hold Coumadin before the procedure. Time with Patient: Less than 30 PQRS Measure Charge Sheet Measure #130: Documentation of Current Meds in Medical Chart: Patient's medications documented in chart Measure #226: Tobacco Use: Screen & Cessation Intervention: Pt screened for tobacco use AND intervention given Measure #111: Pneumonia Vaccination: Pneumococcal vaccine NOT administered or previously given Measure #47: Advance Care Plan: Advance care planning discussed & documented, pt chose/unable to give Measure #412: Opioid Treatment Agreement: No documentation of signed opioid treatment agreement Measure #408: Opioid Therapy Follow-up Evaluation: Patient had NO f/u eval minimum every 3 months during opioid therapy Measure #317: Preventitive Care & Scrn High Bld Press & F/U: Normal blood pressure, f/u not required Measure #128: Body Mass Index (BMI) Screening & Follow-up: BMI documented BELOW normal parameters - f/u documented Measure #131: Pain Assessment & Follow-up: Pain positive & plan documented, Pain negative & plan not documented, Follow-up PRN Measure #431: Unhealthy Alcohol Use Preventative Care & Scrn: Patient not identified as an unhealthy alcohol user PQRS Narrative: Smoking Status Current every day smoker Blood Pressure 114/70 Pain Intensity [Neck] 0 Scale Used Numeric (1 - 10) Hx Alcohol Use (MH) Yes Home Medications: Ambulatory Orders Albuterol Sulfate [Proair Hfa] 1 - 2 puff INHALATION RT-Q6H PRN 09/27/17 Doxycycline Hyclate 100 mg PO BID 09/27/17 Flecainide [Tambocor] 50 mg PO Q12HR 09/27/17 Niacin 500 mg PO DAILY 09/27/17 Triamcinolone 0.5% Cream [Kenalog 0.5% Cream] 1 applic TOPICAL BID 09/27/17 Warfarin [Coumadin] 7.5 mg PO W/SUPPER 09/27/17 diphenhydrAMINE [Benadryl] 50 mg PO QID 09/27/17 HYDROcodone/APAP 5-325MG [[place] 5-325] 1 tab PO Q6HR PRN 3 Days #12 tab 04/17/19 Multivitamin [Multivitamins Adult Gummies] 1 tab PO DAILY 05/29/19 Fluticasone/Salmeterol [Advair 250-50 Diskus] 1 inhalation PO BID 06/12/19 Acetaminophen Tab [Tylenol Tab] 500 mg PO DAILY PRN 06/26/19 predniSONE 3 mg PO DAILY 06/26/19 Controlled Substance Measures - Controlled Substance Measures Is patient prescribed a controlled substance at discharge?: No
== END | disposition home or self-care (01) ==
LOC: PNWHC3 12:47
PROVIDERS: ATTEND Specialist
DX: G89.29 Other chronic pain (principal); M50.30 Other cervical disc degeneration, unspecified cervical region; M47.812 Spondylosis without myelopathy or radiculopathy, cervical region; F17.200 Nicotine dependence, unspecified, uncomplicated; Z79.01 Long term (current) use of anticoagulants; Z79.899 Other long term (current) drug therapy
CPT/HCPCS: 99211

== ENCOUNTER → 2019-10-01 | Outpatient (CLI) | payer MEDICARE ==
--- NOTE | 2019-10-01 10:38 | XR ---
EXAM TYPE: LUMBAR SPINE X RAY SERIES COMPARISON: 09/28/2018 HISTORY: Pain TECHNIQUE: 4 views are submitted. FINDINGS: There is diffuse osteopenia and curvature of the spine. Multilevel hypertrophic and degenerative holguin ges seen. Vascular calcifications are seen with findings suggestive of a 4.6 cm abdominal aortic aneu rysm. Report called to referring clinician. Superior endplate deformity of L5 is of indeterminate age and there is a compression deformity of L1 of indeterminate age. These appear to be new from the exa m of 2018. Multilevel facet arthropathy and degenerative disc disease noted. IMPRESSION: 1. Age-indeterminate compression fractures L1 and L5. 2. Multilevel degenerative disc disease. 3. There is no abdominal aortic aneurysm measuring 4.6 cm. Correlate clinically. This is been reporte d by previous CT scan to measure 3.3 cm and has increased in size from 2018.
== END | disposition home or self-care (01) ==
LOC: RADXRMAIN 09:22
PROVIDERS: ATTEND Family Medicine
DX: M51.36 Other intervertebral disc degeneration, lumbar region (principal)
CPT/HCPCS: 72110

== ENCOUNTER → 2019-10-08 | Outpatient (CLI) | payer MEDICARE ==
[2019-10-08 13:37] LABS: Prothrombin Time >130.0 sec (9.0-12.0)
[2019-10-08 13:50] LABS: INR >10.0 (<1.2)
== END | disposition home or self-care (01) ==
LOC: LABWHC1 12:16
PROVIDERS: ATTEND Internal Medicine Cardiovascular Disease
DX: I48.91 Unspecified atrial fibrillation (principal)
CPT/HCPCS: 36415; 85610

== ENCOUNTER → 2019-12-12 | Outpatient (CLI) | payer MEDICARE ==
--- NOTE | 2019-12-12 17:44 | CT ---
EXAMINATION TYPE: CT chest w con DATE OF EXAM: 12/12/2019 COMPARISON: 03/01/2019 HISTORY: 83-year-old male R91.1, lung nodule . TECHNIQUE: Contiguous axial scanning of the chest after the administration of 80 mL of Isovue 300. C oronal/sagittal reconstructions performed. CT DLP: 339mGycm. Automatic exposure control utilized for a dose reduction. FINDINGS: Heart normal size without pericardial effusion. Aortic root is ectatic at 3.8 cm. Stable aneurysm ascending aorta 4.6 cm. Conventional arch vessel b ranching anatomy. Aneurysm upper descending thoracic aorta at 3.9 cm unchanged. Scattered mild athero sclerotic calcifications throughout. No thoracic lymphadenopathy by CT size criteria. Moderate upper lung emphysema. Biapical pleural-parenchymal scarring. Mild diffuse bronchial wall thi ckening. New focal irregular opacity posterior basal left lower lobe measuring 4.0 x 3.9 cm. Previous peripheral right basilar nodule and peripheral left basilar nodule appear to have resolved. No consolidation or pleural effusion. Some surgical clips along the paraesophageal region at GE junction. Mild low-density thickening of th e left adrenal gland is unchanged. Moderate stool within the splenic flexure of the colon. Bones: Severe endplate fracture of L1 with mild retropulsion into the ventral spinal canal. No signif icant surrounding hematoma. New from 03/01/2019. Suspect a subacute injury. Severe endplate fracture o f T12 also new without significant vertebral body height loss. Anterior wedging of T7 and T8 are unch anged. IMPRESSION: 1. New focal irregular mass basilar left lower lobe measuring 4.0 x 3.9 cm. Further workup and manage ment for potential neoplasm recommended. Consider PET/CT. 2. The other previous peripheral basilar nodularity has resolved. 3. COPD with moderate upper lung emphysema. 4. Chronic vertebral compression deformities of T7 and T8. Superior endplate injuries of T12 and L1 a re new from 03/01/2019 and need to be correlated clinically as to age. Subacute to chronic fractures a re suspected given the lack of surrounding hematoma/swelling. There is mild retropulsion into the leny tral spinal canal at L1.
== END | disposition home or self-care (01) ==
LOC: RADCTMAIN 11:56
PROVIDERS: ATTEND Internal Medicine Critical Care Medicine
DX: J43.9 Emphysema, unspecified (principal); R91.1 Solitary pulmonary nodule; S22.060D Wedge compression fracture of T7-T8 vertebra, subsequent encounter for fracture with routine healing
CPT/HCPCS: 82565; 84520; 71260; 36415; Q9967

== ENCOUNTER → 2019-12-20 | Outpatient (CLI) | payer MEDICARE ==
--- NOTE | 2019-12-22 13:59 | PE ---
EXAMINATION TYPE: PET CT fusion skull to thigh DATE OF EXAM: 12/20/2019 COMPARISON: CT chest 12/12/2019 Prior PET/CT: 08/04/2018 HISTORY: Solitary pulmonary nodule left lung. TECHNIQUE: Following the intravenous administration of 11.85 mCi of F-18 FDG, whole body images are performed from the skull base to the midthigh. Images are reviewed on the computer in the coronal, a xial, and sagittal planes. Reconstructed rotating images are created on independent workstation and reviewed on the computer. A localization and attenuation correction CT is performed in conjunction with the PET scan. DLP: 278.13 mGycm SCAN: Initial Blood glucose: 88 mg/dL Average Mediastinum SUV: 1.56 Average Liver SUV: 2.1 FINDINGS: NECK: No abnormal uptake THORAX: There is some subtle uptake within the small pretracheal lymph node measuring 2.09 SUV value. PET image 105. Subtle mild right suprahilar uptake may be present with an SUV value 1.85. PET image 109. There is mild uptake within a lung nodule within the posterior left lung base. Maximum SUV value is 1 .46. Findings are more compatible with inflammatory change. Neoplasm is not excluded with a lower met abolic activity neoplasm. ABDOMEN: No suspicious uptake PELVIS: No suspicious uptake OSSEOUS STRUCTURES: There is increased uptake within the superior endplate of T12 with an SUV value 2 .97. This could be recent fracture. Location is more typical for fracture than neoplasm. Similar upta ke is in the superior endplate of a compression deformity L1 LOCALIZATION CT: No enlarged mediastinal adenopathy is evident. Small pretracheal lymph nodes are pre sent. Ascending thoracic aorta at the level of main pulmonary artery is 4.8 cm. The main pulmonary ar solo the bifurcation is 3.2 cm. Lung mass in the left lower lobe on this examination measures 3.4 x 3 .3 cm. Note that if biopsy is attempted the greater metabolic activity is along the posterior margin. There is fusiform prominence of the mid abdominal aorta with an AP diameter of 3.5 cm. COMPARISON: Nodule has increased in size from the comparison PET/CT of 08/04/2018. IMPRESSION: 1. Increasing size of a left basilar nodule. SUV value is more intermediate suggesting inflammatory c hanges. If biopsy is attempted, the greater metabolic activity is along the posterior margin. SUV martinez ue is increasing from comparison and low-grade metabolic activity neoplasm is not excluded. 2. There are couple of subtle intermediate signal changes within the mediastinum. This appears to bee n present previously. 3. Ascending thoracic aortic aneurysm measuring 4.8 cm on this exam, no significant increase in size from prior study is evident.
== END | disposition home or self-care (01) ==
LOC: RADPETMAIN 12:42
PROVIDERS: ATTEND Internal Medicine Critical Care Medicine
DX: R91.1 Solitary pulmonary nodule (principal); I71.2 Thoracic aortic aneurysm, without rupture; R93.89 Abnormal findings on diagnostic imaging of other specified body structures
CPT/HCPCS: 78815; A9552

== ENCOUNTER 2020-01-19 08:08 | Inpatient (IN) | payer MEDICARE ==
[2020-01-19] MEDS ORDERED: methylPREDNISolone SOD SUCCI 125 MG/2 ML VIAL IV STA (08:23)
[2020-01-19] MEDS ORDERED: IPRATROPIUM-ALBUTEROL 3 ML NEB INHALATION STA ×2 (08:23→08:24)
--- NOTE | 2020-01-19 08:26 | ED ---
General Adult HPI - General Chief complaint: Shortness of Breath Stated complaint: ERIC Time Seen by Provider: 01/19/20 08:16 Source: patient, family, RN notes reviewed Mode of arrival: ambulatory Limitations: no limitations - History of Present Illness Initial comments: Patient is a pleasant 84-year-old male presenting to the emergency department with difficulty in breathing. Symptoms have progressed with the past few days. No significant cough. No fever. Patient does have some leg swelling that has been present for the past month, no history of that previously. No leg pain or calf pain. Patient was placed on Lasix with improvement of leg swelling. Symptoms are similar to previous COPD. Patient did have recent PET scan showed a spot on his lungs. This is being further investigated. - Related Data Home Medications Medication Instructions Recorded Confirmed Albuterol Sulfate [Proair Hfa] 1 - 2 puff INHALATION RT-Q6H PRN 09/27/17 07/10/19 Doxycycline Hyclate 100 mg PO BID 09/27/17 07/10/19 Flecainide [Tambocor] 50 mg PO Q12HR 09/27/17 07/10/19 Niacin 500 mg PO DAILY 09/27/17 07/10/19 Triamcinolone 0.5% Cream [Kenalog 1 applic TOPICAL BID 09/27/17 07/10/19 0.5% Cream] Warfarin [Coumadin] 7.5 mg PO W/SUPPER 09/27/17 07/10/19 diphenhydrAMINE [Benadryl] 50 mg PO QID 09/27/17 07/10/19 Multivitamin [Multivitamins Adult 1 tab PO DAILY 05/29/19 07/10/19 Gummies] Fluticasone/Salmeterol [Advair 1 inhalation PO BID 06/12/19 07/10/19 250-50 Diskus] Acetaminophen Tab [Tylenol Tab] 500 mg PO DAILY PRN 06/26/19 07/10/19 predniSONE 3 mg PO DAILY 06/26/19 07/10/19 Previous Rx's Medication Instructions Recorded HYDROcodone/APAP 5-325MG [[place] 1 tab PO Q6HR PRN 3 Days #12 tab 04/17/19 5-325] Allergies Allergy/AdvReac Type Severity Reaction Status Date / Time No Known Allergies Allergy Verified 01/19/20 08:15 Review of Systems ROS Statement: Those systems with pertinent positive or pertinent negative responses have been documented in the HPI. ROS Other: All systems not noted in ROS Statement are negative. Constitutional: Denies: fever Eyes: Denies: eye pain ENT: Denies: ear pain Respiratory: Reports: dyspnea. Denies: cough Cardiovascular: Reports: edema. Denies: chest pain Endocrine: Denies: fatigue Gastrointestinal: Denies: abdominal pain Genitourinary: Denies: dysuria Musculoskeletal: Denies: back pain Skin: Denies: rash Neurological: Denies: weakness Past Medical History Past Medical History: Atrial Fibrillation, COPD Additional Past Medical History / Comment(s): aneurysm. rash to chest and back History of Any Multi-Drug Resistant Organisms: None Reported Past Surgical History: Hernia Repair Additional Past Surgical History / Comment(s): ULCER REPAIR- 35 YEARS AGO Past Anesthesia/Blood Transfusion Reactions: No Reported Reaction Past Psychological History: No Psychological Hx Reported Smoking Status: Current every day smoker Past Alcohol Use History: Occasional Past Drug Use History: None Reported - Past Family History Mother Family Medical History: Cancer Additional Family Medical History / Comment(s): from [place] (stomach) Father Family Medical History: Myocardial Infarction ([place]) Additional Family Medical History / Comment(s): passes away from aneurysm General Exam Limitations: no limitations General appearance: alert Head exam: Present: normocephalic Eye exam: Present: normal appearance Neck exam: Present: normal inspection Respiratory exam: Present: respiratory distress, wheezes, accessory muscle use, decreased breath sounds Cardiovascular Exam: Present: regular rate, normal rhythm GI/Abdominal exam: Present: soft. Absent: tenderness Extremities exam: Present: pedal edema (Bilateral foot and lower leg edema near the ankles.). Absent: calf tenderness Neurological exam: Present: alert Psychiatric exam: Present: normal affect, normal mood Skin exam: Present: normal color Course Vital Signs 01/19/20 01/19/20 01/19/20 08:11 08:31 08:59 Temperature 97.6 F Pulse Rate 81 78 87 Respiratory 20 Rate Blood Pressure 155/84 O2 Sat by Pulse 98 Oximetry - Reevaluation(s) Reevaluation #1: 01/19/20 09:46 Repeat EKG shows narrow complex tachycardia with rate of 145. QRS 104. QT 312. QTC 44. Left axis. Left anterior fascicular block. Nonspecific ST-T. 01/19/20 10:15 EKG #3 shows sinus rhythm at 80. AL 178. QRS 84. QT 400. QTc 461. Left axis. Left anterior fascicular block. LVH criteria. Borderline inferior Q waves. No acute ST change. EKG Findings - EKG Comments: EKG Findings:: Sinus rhythm at 85 with sinus arrhythmia. AL 174. QRS 88. QT 382. QTC 454. Normal axis. LVH criteria. Septal Q waves. No acute ST change. Motion artifact present. Medical Decision Making - Medical Decision Making Patient reevaluated and resting comfortably in bed. Patient still has minimal retractions however significantly improved. Decreased wheezing. Change has slightly improved however remains fairly diminished. Patient no longer in respiratory distress. Heart rate has improved. [facility] has been paged for admission covering for Dr. Cho. - Lab Data Result diagrams: 01/19/20 08:55 01/19/20 08:55 Lab Results 01/19/20 01/19/20 01/19/20 Range/Units 08:55 08:55 08:55 WBC 7.5 (3.8-10.6) k/uL RBC 4.72 (4.30-5.90) m/uL Hgb 14.3 (13.0-17.5) gm/dL Hct 44.3 (39.0-53.0) % MCV 93.9 (80.0-100.0) fL MCH 30.2 (25.0-35.0) pg MCHC 32.2 (31.0-37.0) g/dL RDW 14.1 (11.5-15.5) % Plt Count 224 (150-450) k/uL Neutrophils % 72 % Lymphocytes % 12 % Monocytes % 9 % Eosinophils % 6 % Basophils % 1 % Neutrophils # 5.4 (1.3-7.7) k/uL Lymphocytes # 0.9 L (1.0-4.8) k/uL Monocytes # 0.6 (0-1.0) k/uL Eosinophils # 0.4 (0-0.7) k/uL Basophils # 0.0 (0-0.2) k/uL PT 12.6 H (9.0-12.0) sec INR 1.3 H (<1.2) APTT 26.1 (22.0-30.0) sec Sodium 132 L (137-145) mmol/L Potassium 4.4 (3.5-5.1) mmol/L Chloride 97 L (98-107) mmol/L Carbon Dioxide 29 (22-30) mmol/L Anion Gap 6 mmol/L BUN 15 (9-20) mg/dL Creatinine 0.84 (0.66-1.25) mg/dL Est GFR (CKD-EPI)AfAm >90 (>60 ml/min/1.73 sqM) Est GFR (CKD-EPI)NonAf 81 (>60 ml/min/1.73 sqM) Glucose 95 (74-99) mg/dL Calcium 8.8 (8.4-10.2) mg/dL Total Bilirubin 0.5 (0.2-1.3) mg/dL AST 46 (17-59) U/L ALT 24 (4-49) U/L Alkaline Phosphatase 158 H (38-126) U/L Troponin I (0.000-0.034) ng/mL NT-Pro-B Natriuret Pep pg/mL Total Protein 6.7 (6.3-8.2) g/dL Albumin 4.0 (3.5-5.0) g/dL 01/19/20 01/19/20 Range/Units 08:55 08:56 WBC (3.8-10.6) k/uL RBC (4.30-5.90) m/uL Hgb (13.0-17.5) gm/dL Hct (39.0-53.0) % MCV (80.0-100.0) fL MCH (25.0-35.0) pg MCHC (31.0-37.0) g/dL RDW (11.5-15.5) % Plt Count (150-450) k/uL Neutrophils % % Lymphocytes % % Monocytes % % Eosinophils % % Basophils % % Neutrophils # (1.3-7.7) k/uL Lymphocytes # (1.0-4.8) k/uL Monocytes # (0-1.0) k/uL Eosinophils # (0-0.7) k/uL Basophils # (0-0.2) k/uL PT (9.0-12.0) sec INR (<1.2) APTT (22.0-30.0) sec Sodium (137-145) mmol/L Potassium (3.5-5.1) mmol/L Chloride (98-107) mmol/L Carbon Dioxide (22-30) mmol/L Anion Gap mmol/L BUN (9-20) mg/dL Creatinine (0.66-1.25) mg/dL Est GFR (CKD-EPI)AfAm (>60 ml/min/1.73 sqM) Est GFR (CKD-EPI)NonAf (>60 ml/min/1.73 sqM) Glucose (74-99) mg/dL Calcium (8.4-10.2) mg/dL Total Bilirubin (0.2-1.3) mg/dL AST (17-59) U/L ALT (4-49) U/L Alkaline Phosphatase (38-126) U/L Troponin I 0.015 (0.000-0.034) ng/mL NT-Pro-B Natriuret Pep 244 pg/mL Total Protein (6.3-8.2) g/dL Albumin (3.5-5.0) g/dL - Radiology Data Radiology results: image reviewed (Chest x-ray shows emphysema.) Critical Care Time Critical Care Time: Yes Total Critical Care Time: 32 Disposition Clinical Impression: Acute respiratory failure, Acute exacerbation of chronic obstructive pulmonary disease, Atrial flutter with rapid ventricular response Disposition: ADMITTED IP TO THIS HOSP Is patient prescribed a controlled substance at d/c from ED?: No Referrals: Anamaria Faria MD [Primary Care Provider] - 1-2 days Decision Time: 10:21
[2020-01-19 09:34] LABS: Basophils % (A) 1 %; Eosinophils # (A) 0.4 k/uL (0-0.7); Eosinophils % (A) 6 %; HCT 44.3 % (39.0-53.0); HGB 14.3 gm/dL (13.0-17.5); Lymphocytes # (A) 0.9 k/uL (1.0-4.8); Lymphocytes % (A) 12 %; MCH 30.2 pg (25.0-35.0); MCHC 32.2 g/dL (31.0-37.0); MCV 93.9 fL (80.0-100.0); Mean Platelet Volume 7.4; Monocytes # (A) 0.6 k/uL (0-1.0); Monocytes % (A) 9 %; Neutrophils # (A) 5.4 k/uL (1.3-7.7); Neutrophils % (A) 72 %; Platelet Count 224 k/uL (150-450); RBC 4.72 m/uL (4.30-5.90); RDW 14.1 % (11.5-15.5); WBC 7.5 k/uL (3.8-10.6)
[2020-01-19 09:44] LABS: ALT 24 U/L (4-49); AST 46 U/L (17-59); African American GFR (CKD) >90 (>60 ml/min/1.73 sqM); Alkaline Phosphatase 158 U/L (38-126); Anion Gap 6 mmol/L; Blood Urea Nitrogen 15 mg/dL (9-20); Calcium 8.8 mg/dL (8.4-10.2); Carbon Dioxide 29 mmol/L (22-30); Chloride 97 mmol/L (98-107); Glucose 95 mg/dL (74-99); Non-African American GFR(CKD) 81 (>60 ml/min/1.73 sqM); Potassium 4.4 mmol/L (3.5-5.1); Sodium 132 mmol/L (137-145); Total Bilirubin 0.5 mg/dL (0.2-1.3); Total Protein 6.7 g/dL (6.3-8.2)
[2020-01-19] MEDS ORDERED: DILTIAZEM DRIP BOLUS FROM BAG 1 MG SOLN IV ONE ×2 (09:47→20:12)
[2020-01-19 09:48] LABS: INR 1.3 (<1.2); Partial Thromboplastin Time 26.1 sec (22.0-30.0); Prothrombin Time 12.6 sec (9.0-12.0)
--- NOTE | 2020-01-19 10:06 | XR ---
EXAMINATION TYPE: XR chest 1V portable DATE OF EXAM: 01/19/2020 COMPARISON: CT chest 12/12/2019 HISTORY: Dyspnea TECHNIQUE: Single frontal view of the chest is obtained. FINDINGS: There is no pleural effusion or pneumothorax seen. The cardiac silhouette size is within normal limits. Aorta is aneurysmal. Prominent lung volumes consistent with patient's underlying emph ysema and COPD. Left basilar soft tissue density is again noted. The osseous structures are intact. IMPRESSION: No acute process. Emphysema, stable basilar soft tissue on the left. Aortic aneurysm.
[2020-01-19] MEDS: DILTIAZEM 125 MG in SODIUM CHLORIDE 0.9% 100 ML IV SCH ×2 (10:20→20:25)
[2020-01-19] MEDS ORDERED: IPRATROPIUM-ALBUTEROL 3 ML NEB INHALATION PRN (10:22)
[2020-01-19 11:29] LABS: Glucose,Whole Blood 112 mg/dL (75-99)
[2020-01-19] MEDS ORDERED: AZITHROMYCIN 500 MG TAB PO SCH (12:00)
--- NOTE | 2020-01-19 12:52 | P.CNPUL ---
History of Present Illness Consult date: 01/19/20 History of present illness: 84-year-old male patient known to have advanced COPD with an FEV1 of 36% of predicted based on a previous PFT that was done back in 2016. He is followed up in our office on of the care of Dr. Zapata. He has been on Advair and has a nebulizer at home which she uses around the clock as needed. He also smokes cigarettes. He was woken up to recently. Over the past 2 weeks, he was having dyspnea cough chest congestion and chest tightness and wheezing. No chest pain. He also has an enlarging left lower lobe mass which is quite suspicious for lung cancer. Nevertheless, no biopsies have been done as the patient's overall pulmonary status has been extremely poor. The patient's PET scan done on 12/21/2019 showed increasing mass in the left lower lobe with an SUV being in the indeterminate inflammatory stages. There were also couple of supple indeterminate signal changes in the mediastinum. The patient also had an ascending aortic aneurysm measuring 4.8 cm in size. In the ED, the patient was given bronchodilators and steroids. The patient was given BiPAP which she was unable to tolerate. He was taken off the BiPAP and he was moved to the intensive care unit. I saw immediately after he arrived in. He was a bit anxious. He was having some limited the breathing. He was acutely bronchospastic and wheezy. No hemoptysis. No pleurisy. No swelling lower extremities. Seems to be quite anxious especially with his ongoing shortness of breath. Review of Systems Constitutional: Reports fatigue, Reports weakness Eyes: denies as per HPI, denies blurred vision, denies bulging eye, denies decreased vision, denies diplopia, denies discharge, denies dry eye, denies irritation, denies itching, denies pain, denies photophobia, denies loss of peripheral vision, denies loss of vision, denies tunnel vision/blind spots Ears: deny: decreased hearing, ear discharge, earache, tinnitus Ears, nose, mouth and throat: Denies headache, Denies sore throat Breasts: absent: as per HPI, gynecomastia Cardiovascular: Reports decreased exercise tolerance, Reports dyspnea on exertion, Reports shortness of breath Respiratory: Reports cough, Reports dyspnea, Reports wheezing Gastrointestinal: Reports as per HPI Genitourinary: Reports as per HPI Musculoskeletal: Reports as per HPI Musculoskeletal: absent: ankle pain, ankle stiffness, ankle swelling Integumentary: Reports as per HPI Neurological: Reports as per HPI Psychiatric: Reports as per HPI Endocrine: Reports as per HPI Hematologic/Lymphatic: Reports as per HPI Allergic/Immunologic: Reports as per HPI Past Medical History Past Medical History: Atrial Fibrillation, COPD, Respiratory Disorder Additional Past Medical History / Comment(s): Ascending thoracic aortic aneurysm measuring 4.8 cm in size, advanced COPD, left lower lobe mass measuring 3.4 x 3.3 cm in size History of Any Multi-Drug Resistant Organisms: None Reported Past Surgical History: Hernia Repair Additional Past Surgical History / Comment(s): ULCER REPAIR- 35 YEARS AGO Past Anesthesia/Blood Transfusion Reactions: No Reported Reaction Past Psychological History: No Psychological Hx Reported Smoking Status: Current every day smoker Past Alcohol Use History: Occasional Additional Past Alcohol Use History / Comment(s): 1/2ppd smoked for 65 yrs. Past Drug Use History: None Reported - Past Family History Mother Family Medical History: Cancer Additional Family Medical History / Comment(s): from [place] (stomach) Father Family Medical History: Myocardial Infarction ([place]) Additional Family Medical History / Comment(s): passes away from aneurysm Medications and Allergies Home Medications Medication Instructions Recorded Confirmed Type Albuterol Sulfate [Proair Hfa] 2 puff INHALATION RT-Q6H PRN 09/27/17 01/19/20 History Flecainide [Tambocor] 50 mg PO Q12HR 09/27/17 01/19/20 History Triamcinolone 0.5% Cream [Kenalog 1 applic TOPICAL BID 09/27/17 01/19/20 History 0.5% Cream] Warfarin [Coumadin] 5 mg PO DAILY 09/27/17 01/19/20 History diphenhydrAMINE [Benadryl] 25 mg PO HS PRN 09/27/17 01/19/20 History Ipratropium-Albuterol Nebulize 3 ml INHALATION RT-BID 01/19/20 01/19/20 History [Duoneb 0.5 mg-3 mg/3 ml Soln] Niacinamide 500 mg PO DAILY 01/19/20 01/19/20 History Allergies Allergy/AdvReac Type Severity Reaction Status Date / Time No Known Allergies Allergy Verified 01/19/20 11:16 Physical Exam Vitals: Vital Signs Temp Pulse Resp BP Pulse Ox 01/19/20 12:00 97.8 F 82 20 166/100 100 01/19/20 11:00 77 16 168/112 97 01/19/20 10:00 84 26 H 161/114 97 01/19/20 09:30 74 22 130/93 98 01/19/20 08:59 87 01/19/20 08:31 78 01/19/20 08:11 97.6 F 81 20 155/84 98 Intake and Output 01/18/20 01/19/20 01/19/20 22:59 06:59 14:59 Other: Weight 65.771 kg Gen. appearance the patient is anxious, short of breath, tachypneic, not using excessive muscle breathing at this point in time. Head exam was generally normal. There was no scleral icterus or corneal arcus. Mucous membranes were moist. Neck was supple and without jugular venous distension, thyromegaly, or carotid bruits. Carotids were easily palpable bilaterally. There was no adenopathy. Lungs sounds are revealing diminished breath sounds throughout the lung his bilaterally along with prolongation of the isolation phase of breathing and diffuse expiratory wheezes throughout the lung. Bilaterally. Cardiac exam revealed the PMI to be normally situated and sized. The rhythm was irregular consistent with atrial fibrillation, irregular S1-S2 and no extrasystoles were noted during several minutes of auscultation. The first and second heart sounds were normal and physiologic splitting of the second heart sound was noted. There were no murmurs, rubs, clicks, or gallops. Abdominal exam revealed normal bowel sounds. The abdomen was soft, non-tender, and without masses, organomegaly, or appreciable enlargement of the abdominal aorta. Examination of the extremities revealed easily palpable radial, femoral and pedal pulses. There was no cyanosis, clubbing or edema. Examination of the skin revealed no evidence of significant rashes, suspicious appearing nevi or other concerning lesions. Neurologically, the patient is awake and alert and the patient does not have any focal neurological deficit. Cranial nerves are essentially intact. Results - Laboratory Findings CBC and BMP: 01/19/20 08:55 01/19/20 08:55 PT/INR, D-dimer PT 12.6 sec (9.0-12.0) H 01/19/20 08:55 INR 1.3 (<1.2) H 01/19/20 08:55 Abnormal lab findings: Abnormal Labs 01/19/20 01/19/20 01/19/20 08:55 08:55 08:55 Lymphocytes # 0.9 L PT 12.6 H INR 1.3 H Sodium 132 L Chloride 97 L POC Glucose (mg/dL) Plasma Lactic Acid Isacc Alkaline Phosphatase 158 H 01/19/20 01/19/20 08:55 11:27 Lymphocytes # PT INR Sodium Chloride POC Glucose (mg/dL) 112 H Plasma Lactic Acid Isacc 2.1 H* Alkaline Phosphatase - Diagnostic Findings Chest x-ray: image reviewed Assessment and Plan Plan: 1 acute COPD exacerbation with secondary shortness of breath. The patient is acutely bronchospastic and wheezy. Chest x-ray is not showing any acute pneumonia. There is a left lower lobe mass seen on previous CAT scan of the chest, highly suspicious for malignancy. 2 shortness of breath secondary to above 3 acute hypoxic respiratory failure secondary to above 4 left lower lobe mass measuring 3.4 x 3.3 cm in size, highly suspicious for malignancy 5 advanced COPD based on the previous pulmonary function test from 2016 he has an FEV1 of 36% of predicted 6 chronic atrial fibrillation with rapid ventricular response at time of her his ED presentation. The patient was placed on a Cardizem drip for rate control 7 increased anxiety 8 ascending thoracic aortic aneurysm measuring 4.8 cm in size 9 smoker Past subtherapeutic PT/INR Plan Continue DuoNeb nebulized treatments around the clock ad Pulmicort Respules and Perforomist nebulized treatments twice a day IV Solu Medrol 60 mg every 6 hours That Fluids to KVO Zithromax 500 MG BY MOUTH DAILY Patient unable to tolerate BiPAP. We'll continue treating him with nasal oxygen by cannula Restart flecainide Give the patient from milligrams of Coumadin today and monitor daily PT/INR's We'll continue to follow. Smoking cessation counseling was done. He'll be kept in ICU for now.
[2020-01-19] MEDS: IPRATROPIUM-ALBUTEROL 3 ML NEB INHALATION SCH ×4 (12:55→20:08)
[2020-01-19] MEDS: SODIUM CHLORIDE 0.9% 1,000 ML IV SCH ×2 (13:19→20:28)
[2020-01-19] MEDS: methylPREDNISolone SOD SUCCI 125 MG/2 ML VIAL IV SCH ×2 (13:20→18:32)
[2020-01-19] MEDS ORDERED: ONDANSETRON 4 MG/2 ML VIAL IVP PRN (14:33)
[2020-01-19] MEDS ORDERED: NALOXONE 0.4 MG/ML 1 ML VIAL IV PRN (14:33)
[2020-01-19] MEDS ORDERED: bisacodyL 5 MG TABLET.DR PO PRN (14:33)
[2020-01-19] MEDS ORDERED: ACETAMINOPHEN TAB 325 MG TAB PO PRN (14:33)
--- NOTE | 2020-01-19 14:58 | P.HPIM ---
History of Present Illness H&P Date: 01/19/20 Chief Complaint: Shortness of breath Patient is an 84-year-old male with a history of atrial fibrillation, COPD, left lower lobe lung mass 3.4 x 3.3 cm, an ascending thoracic aortic aneurysm who presented to the emergency department with shortness of breath. On arrival to the ER he was to With a respiratory rate of 20 associated with labored breathing with accessory muscle use and sternal retractions. Laboratory analysis showed sodium 132, lactic acid 2.1, troponin normal at 0.015. Chest x-ray showed no acute process but emphysema with a left basilar soft tissue density that is stable. He was started on bronchodilators and steroids. He had a trial of BiPAP therapy but did not tolerate it in the emergency department. He did have an episode of SVT that was brief and resolved spontaneously. Patient was subsequently admitted for acute exacerbation of COPD. Patient seen and examined at bedside with present. Patient complains of shortness of breath over the last 2 weeks. It is worse with ambulation and better with rest. It is getting worse despite using his nebulizer. He has been having wheezing. He states that several weeks ago he sneezed hard and started having left rib pain. It now only occurs when he takes a deep breath. He has a chroninc cough productive of thick sputum which is unchanged from baseline. He denies fever, chills, nausea, vomiting, or diarrhea. He has been following with Dr. Zapata for left lung mass. At the end of november he had green sputum and was placed on antibiotic and steroids. He says that he breathing has been worse since that time. Lower extremity edema that has been getting better since being started on a water pill. He follow with Dr. James for cardio Review of Systems Pertinent positives and negatives as discussed in HPI, a complete review of systems was performed and all other systems are negative. Past Medical History Past Medical History: Atrial Fibrillation, COPD, Respiratory Disorder Additional Past Medical History / Comment(s): Ascending thoracic aortic aneurysm measuring 4.8 cm in size, advanced COPD, left lower lobe mass measuring 3.4 x 3.3 cm in size History of Any Multi-Drug Resistant Organisms: None Reported Past Surgical History: Adenoidectomy, Hernia Repair, Tonsillectomy Additional Past Surgical History / Comment(s): ULCER REPAIR- 35 YEARS AGO, cataract bilateral Past Anesthesia/Blood Transfusion Reactions: No Reported Reaction Past Psychological History: No Psychological Hx Reported Smoking Status: Current every day smoker Past Alcohol Use History: Occasional Additional Past Alcohol Use History / Comment(s): 1/2ppd smoked for 65 yrs. Past Drug Use History: None Reported - Past Family History Mother Family Medical History: Cancer Additional Family Medical History / Comment(s): from [place] (stomach) Father Family Medical History: Myocardial Infarction ([place]) Additional Family Medical History / Comment(s): passes away from aneurysm Medications and Allergies Home Medications Medication Instructions Recorded Confirmed Type Albuterol Sulfate [Proair Hfa] 2 puff INHALATION RT-Q6H PRN 09/27/17 01/19/20 History Flecainide [Tambocor] 50 mg PO Q12HR 09/27/17 01/19/20 History Triamcinolone 0.5% Cream [Kenalog 1 applic TOPICAL BID 09/27/17 01/19/20 History 0.5% Cream] Warfarin [Coumadin] 5 mg PO DAILY 09/27/17 01/19/20 History diphenhydrAMINE [Benadryl] 25 mg PO HS PRN 09/27/17 01/19/20 History Ipratropium-Albuterol Nebulize 3 ml INHALATION RT-BID 01/19/20 01/19/20 History [Duoneb 0.5 mg-3 mg/3 ml Soln] Niacinamide 500 mg PO DAILY 01/19/20 01/19/20 History Allergies Allergy/AdvReac Type Severity Reaction Status Date / Time No Known Allergies Allergy Verified 01/19/20 11:16 Physical Exam Osteopathic Statement: *. No significant issues noted on an osteopathic structural exam other than those noted in the History and Physical/Consult. Vitals: Vital Signs Temp Pulse Resp BP Pulse Ox 01/19/20 13:13 90 01/19/20 12:55 93 01/19/20 12:00 97.8 F 82 20 166/100 100 01/19/20 11:00 77 16 168/112 97 01/19/20 10:00 84 26 H 161/114 97 01/19/20 09:30 74 22 130/93 98 01/19/20 08:59 87 01/19/20 08:31 78 01/19/20 08:11 97.6 F 81 20 155/84 98 Intake and Output 01/18/20 01/19/20 01/19/20 22:59 06:59 14:59 Intake Total 10 Output Total 350 Balance -340 Intake: Intake, IV Titration 10 Amount Sodium Chloride 0.9% 1, 10 000 ml @ 10 mls/hr IV . Q24H [facility] Rx#:[id number] Output: Urine 350 Other: Weight 65.771 kg General: non toxic, no distress, appears at stated age Derm: warm, dry Head: atraumatic, normocephalic, symmetric Eyes: EOMI, no lid lag, anicteric sclera, pupils equal round reactive to light ENT: Nose and ears atraumatic, no thrush, no pharyngeal erythema Neck: No thyromegaly, no cervical lymphadenopathy, trachea midline, supple Mouth: no lip lesion, mucus membranes dry Cardiovascular: S1S2 reg, no murmur, positive posterior tibial pulse bilateral, no edema, capillary refill less than 2 seconds Lungs: decreased bs bilateral bases with ronchi right apex. no wheeze, + accessory muscle use, + three word conversational dyspnea Abdominal: soft, nontender to palpation, no guarding, no appreciable organomegaly, normal bowel sounds Ext: no gross muscle atrophy, muscle strength muscle strength 5 out of 5 in all 4 extremities, no contractures Neuro: CN II-XI grossly intact, light touch intact all 4 extremities, finger to nose within normal limits, Psych: Alert, oriented, appropriate affect Results CBC & Chem 7: 01/19/20 08:55 01/19/20 08:55 Labs: Abnormal Lab Results - Last 24 Hours (Table) 01/19/20 01/19/20 01/19/20 Range/Units 08:55 08:55 08:55 Lymphocytes # 0.9 L (1.0-4.8) k/uL PT 12.6 H (9.0-12.0) sec INR 1.3 H (<1.2) Sodium 132 L (137-145) mmol/L Chloride 97 L (98-107) mmol/L POC Glucose (mg/dL) (75-99) mg/dL Plasma Lactic Acid Isacc (0.7-2.0) mmol/L Alkaline Phosphatase 158 H (38-126) U/L 01/19/20 01/19/20 Range/Units 08:55 11:27 Lymphocytes # (1.0-4.8) k/uL PT (9.0-12.0) sec INR (<1.2) Sodium (137-145) mmol/L Chloride (98-107) mmol/L POC Glucose (mg/dL) 112 H (75-99) mg/dL Plasma Lactic Acid Isacc 2.1 H* (0.7-2.0) mmol/L Alkaline Phosphatase (38-126) U/L Thrombosis Risk Factor Assmnt - DVT/VTE Prophylaxis DVT/VTE Prophylaxis: Pharmacologic Prophylaxis ordered - Choose All That Apply Each Risk Factor Represents 3 Points: Age 75 years or older Other congenital or acquired thrombophilia - If yes, enter type in comment: No Thrombosis Risk Factor Assessment Total Risk Factor Score: 3 Thrombosis Risk Factor Assessment Level: Moderate Risk Assessment and Plan Assessment: Acute exacerbation of COPD - Bronchodilators ATC and prn - steroid - pulm hygiene - antibotics - sputum culture Paroxysmal A fib on Coumadin, subtherapeutic on arrival. - flecainide - tele - pharmacy to dose coumadin Ascending aortic aneurysm - outpatient follow-up with Dr. Vanegas Lower extremity edema - echo - lasix - follow daily weights Left lung mass - know and being followed by Pulm as outpatinet - had CT/PET Cachexia - consult dietitian - supplements SVT resolved Lactic acid, resolved The patient is admitted with an anticipated greater than 2 midnight stay for evaluation of acute exacerbation of COPD. Surrogate decision-maker: CODE STATUS: unsure DVT prophylaxis: SCDs, coumadin Discussed with: patient, nursing Anticipated discharge date: in 2-[address]: home with home health A total of 70 minutes was spent on the care of this complex patient more than 50% of the time was spent in counseling and care coordination.
[2020-01-19] MEDS ORDERED: WARFARIN 5 MG TAB PO ONE (18:00)
[2020-01-19] MEDS ORDERED: diphenhydrAMINE 25 MG CAP PO PRN (18:15)
[2020-01-19] MEDS: FLECAINIDE 50 MG TAB PO SCH (19:56)
[2020-01-19] MEDS: BUDESONIDE 0.5 MG/2 ML NEBU INHALATION SCH ×2 (20:04→20:07)
[2020-01-19] MEDS: FORMOTEROL FUMARATE 20 MCG/2 ML NEBU INHALATION SCH ×2 (20:04→20:08)
[2020-01-19] MEDS: guaiFENesin 600 MG TABLET.ER PO SCH (20:29)
[2020-01-19] MEDS ORDERED: DILTIAZEM 125 MG in SODIUM CHLORIDE 0.9% 100 ML IV SCH (22:00)
[2020-01-19 22:52] LABS: Basophils % (A) 0 %; Eosinophils % (A) 0 %; HCT 43.8 % (39.0-53.0); Lymphocytes # (A) 0.4 k/uL (1.0-4.8); Lymphocytes % (A) 5 %; MCH 29.8 pg (25.0-35.0); MCHC 31.9 g/dL (31.0-37.0); MCV 93.3 fL (80.0-100.0); Monocytes # (A) 0.2 k/uL (0-1.0); Monocytes % (A) 3 %; Neutrophils # (A) 5.9 k/uL (1.3-7.7); Neutrophils % (A) 92 %; Platelet Count 254 k/uL (150-450); RBC 4.69 m/uL (4.30-5.90); RDW 14.2 % (11.5-15.5); WBC 6.5 k/uL (3.8-10.6)
[2020-01-19 23:10] LABS: African American GFR (CKD) >90 (>60 ml/min/1.73 sqM); Anion Gap 5 mmol/L; Blood Urea Nitrogen 16 mg/dL (9-20); Calcium 8.8 mg/dL (8.4-10.2); Carbon Dioxide 27 mmol/L (22-30); Chloride 97 mmol/L (98-107); Glucose 143 mg/dL (74-99); Non-African American GFR(CKD) 86 (>60 ml/min/1.73 sqM); Potassium 4.6 mmol/L (3.5-5.1); Sodium 129 mmol/L (137-145)
[2020-01-20] MEDS: methylPREDNISolone SOD SUCCI 125 MG/2 ML VIAL IV SCH ×5 (00:18→23:46)
[2020-01-20 06:46] LABS: HCT 41.8 % (39.0-53.0); HGB 13.7 gm/dL (13.0-17.5); MCH 30.5 pg (25.0-35.0); MCHC 32.7 g/dL (31.0-37.0); MCV 93.2 fL (80.0-100.0); Mean Platelet Volume 7.3; Platelet Count 249 k/uL (150-450); RBC 4.49 m/uL (4.30-5.90); RDW 13.9 % (11.5-15.5); WBC 15.6 k/uL (3.8-10.6)
[2020-01-20 06:51] LABS: INR 1.7 (<1.2); Prothrombin Time 16.3 sec (9.0-12.0)
[2020-01-20 06:55] LABS: African American GFR (CKD) >90 (>60 ml/min/1.73 sqM); Anion Gap 5 mmol/L; Blood Urea Nitrogen 17 mg/dL (9-20); Calcium 8.6 mg/dL (8.4-10.2); Carbon Dioxide 29 mmol/L (22-30); Chloride 96 mmol/L (98-107); Glucose 127 mg/dL (74-99); Non-African American GFR(CKD) 87 (>60 ml/min/1.73 sqM); Potassium 4.8 mmol/L (3.5-5.1); Sodium 130 mmol/L (137-145)
--- NOTE | 2020-01-20 08:13 | XR ---
EXAMINATION TYPE: XR chest 1V portable DATE OF EXAM: 01/20/2020 COMPARISON: 01/19/2000 HISTORY: Shortness of breath TECHNIQUE: Single frontal view of the chest is obtained. FINDINGS: Hyperinflation is compatible COPD. Prominence of the ascending aorta can be associated wit h aneurysm. Heart size normal. No pleural effusion. No pneumothorax. No interstitial edema. No area o f consolidation seen. Nodular density adjacent left heart border persists. IMPRESSION: 1. COPD. Nodular density adjacent to left heart border noted. 2. Ascending thoracic aortic aneurysm
[2020-01-20] MEDS: IPRATROPIUM-ALBUTEROL 3 ML NEB INHALATION SCH ×4 (08:41→20:02)
[2020-01-20] MEDS: FORMOTEROL FUMARATE 20 MCG/2 ML NEBU INHALATION SCH ×2 (08:41→20:02)
[2020-01-20] MEDS: BUDESONIDE 0.5 MG/2 ML NEBU INHALATION SCH ×2 (08:41→20:02)
--- NOTE | 2020-01-20 08:41 | P.CRDCN ---
History of Present Illness Consult date: 01/20/20 Chief complaint: Shortness of breath History of present illness: This is a pleasant 84-year-old gentleman with a past medical history significant for advanced chronic obstructive pulmonary disease as well as known paroxysmal atrial fibrillation on oral anticoagulation was Coumadin presented to the hospital complaining of increasing in the shortness of breath for the last few days. For the last 2 weeks he has not been feeding well where he was experiencing chest congestion as well as cough as well as wheezing. But for the last several days the shortness of breath has gotten worse where he cannot walk more than a few steps before he stopped because of the shortness of breath. Because of that he decided to come to the hospital. He was admitted with COPD exacerbation and was started on treatment for that. We consulted to see the pat ienaun because he has been in and out of atrial fibrillation with RVR. Currently he is in sinus rhythm. As an outpatient the patient was receiving only flecainide and he was not on any AV manav ajit agents. I am going to start the patient on Cardizem 30 mg by mouth 3 times a day. He is on oral anticoagulation was Coumadin which we will continue at this point would continue monitoring the INR on him. Continue treatment for COPD. An echocardiogram was ordered will follow-up with that. Past Medical History Past Medical History: Atrial Fibrillation, COPD, Respiratory Disorder Additional Past Medical History / Comment(s): Ascending thoracic aortic aneurysm measuring 4.8 cm in size, advanced COPD, left lower lobe mass measuring 3.4 x 3.3 cm in size History of Any Multi-Drug Resistant Organisms: None Reported Past Surgical History: Adenoidectomy, Hernia Repair, Tonsillectomy Additional Past Surgical History / Comment(s): ULCER REPAIR- 35 YEARS AGO, cataract bilateral Past Anesthesia/Blood Transfusion Reactions: No Reported Reaction Past Psychological History: No Psychological Hx Reported Smoking Status: Current every day smoker Past Alcohol Use History: Occasional Additional Past Alcohol Use History / Comment(s): 1/2ppd smoked for 65 yrs. Past Drug Use History: None Reported - Past Family History Mother Family Medical History: Cancer Additional Family Medical History / Comment(s): from CA (stomach) Father Family Medical History: Myocardial Infarction (MS) Additional Family Medical History / Comment(s): passes away from aneurysm Medications and Allergies Home Medications Medication Instructions Recorded Confirmed Type Albuterol Sulfate [Proair Hfa] 2 puff INHALATION RT-Q6H PRN 09/27/17 01/19/20 History Flecainide [Tambocor] 50 mg PO Q12HR 09/27/17 01/19/20 History Triamcinolone 0.5% Cream [Kenalog 1 applic TOPICAL BID 09/27/17 01/19/20 History 0.5% Cream] Warfarin [Coumadin] 5 mg PO DAILY 09/27/17 01/19/20 History diphenhydrAMINE [Benadryl] 25 mg PO HS PRN 09/27/17 01/19/20 History Ipratropium-Albuterol Nebulize 3 ml INHALATION RT-BID 01/19/20 01/19/20 History [Duoneb 0.5 mg-3 mg/3 ml Soln] Niacinamide 500 mg PO DAILY 01/19/20 01/19/20 History Allergies Allergy/AdvReac Type Severity Reaction Status Date / Time No Known Allergies Allergy Verified 01/19/20 11:16 Physical Exam Vitals: Vital Signs Temp Pulse Resp BP Pulse Ox 01/20/20 05:00 65 20 95 01/20/20 04:00 98.6 F 68 21 137/91 96 01/20/20 03:00 79 26 H 93 L 01/20/20 02:00 72 21 94 L 01/20/20 01:00 68 18 143/100 92 L 01/20/20 00:23 74 30 H 95 01/20/20 00:00 98.1 F 68 18 143/100 96 01/19/20 23:00 81 24 95 01/19/20 22:00 73 25 H 100/77 94 L 01/19/20 21:00 76 30 H 112/64 91 L 01/19/20 20:00 97.9 F 146 H 24 112/64 96 01/19/20 19:00 82 20 152/92 96 01/19/20 18:00 89 34 H 152/92 96 01/19/20 17:00 93 26 H 152/92 94 L 01/19/20 16:00 97.8 F 91 20 152/92 96 01/19/20 15:47 78 01/19/20 15:00 82 21 95 01/19/20 14:00 88 20 94 L 01/19/20 13:13 90 01/19/20 13:00 90 28 H 97 01/19/20 12:55 93 01/19/20 12:00 97.8 F 82 21 143/95 100 01/19/20 11:00 77 22 168/112 97 01/19/20 10:00 84 26 H 161/114 97 01/19/20 09:30 74 22 130/93 98 01/19/20 08:59 87 Intake and Output 01/19/20 01/20/20 01/20/20 22:59 06:59 14:59 Intake Total 60 40 Output Total 600 630 Balance -540 -590 Intake: Intake, IV Titration 60 40 Amount Sodium Chloride 0.9% 1, 60 40 000 ml @ 10 mls/hr IV . Q24H [facility] Rx#:[id number] Output: Urine 600 630 Other: Voiding Method Urinal Urinal Weight 65.2 kg - Constitutional General appearance: no acute distress - Respiratory Respiratory: bilateral: wheezing - Cardiovascular Rhythm: regular Heart sounds: normal: S1, S2 Results 01/20/20 06:22 01/20/20 06:22 Cardiac Enzymes 01/19/20 01/19/20 Range/Units 08:55 08:55 AST 46 (17-59) U/L Troponin I 0.015 (0.000-0.034) ng/mL Coagulation 01/19/20 01/20/20 Range/Units 08:55 06:22 PT 12.6 H 16.3 H (9.0-12.0) sec APTT 26.1 (22.0-30.0) sec CBC 01/19/20 01/19/20 01/20/20 Range/Units 08:55 22:36 06:22 WBC 7.5 6.5 15.6 H (3.8-10.6) k/uL RBC 4.72 4.69 4.49 (4.30-5.90) m/uL Hgb 14.3 14.0 13.7 (13.0-17.5) gm/dL Hct 44.3 43.8 41.8 (39.0-53.0) % Plt Count 224 254 249 (150-450) k/uL Comprehensive Metabolic Panel 01/19/20 01/19/20 01/20/20 Range/Units 08:55 22:36 06:22 Sodium 132 L 129 L 130 L (137-145) mmol/L Potassium 4.4 4.6 4.8 (3.5-5.1) mmol/L Chloride 97 L 97 L 96 L (98-107) mmol/L Carbon Dioxide 29 27 29 (22-30) mmol/L BUN 15 16 17 (9-20) mg/dL Creatinine 0.84 0.72 0.71 (0.66-1.25) mg/dL Glucose 95 143 H 127 H (74-99) mg/dL Calcium 8.8 8.8 8.6 (8.4-10.2) mg/dL AST 46 (17-59) U/L ALT 24 (4-49) U/L Alkaline Phosphatase 158 H (38-126) U/L Total Protein 6.7 (6.3-8.2) g/dL Albumin 4.0 (3.5-5.0) g/dL Current Medications Generic Name Dose Route Start Last Admin Trade Name Freq PRN Reason Stop Dose Admin Acetaminophen 650 mg 01/19/20 14:33 Acetaminophen Tab 325 Mg Tab PO Q6HR PRN Mild Pain or Fever > 100.5 Hydrocodone Bitart/Acetaminophen 1 each 01/19/20 14:33 Hydrocodone/Apap 5-325mg 1 Each Tab PO Q4HR PRN Moderate Pain Albuterol/Ipratropium 3 ml 01/19/20 12:00 01/19/20 20:08 Ipratropium-Albuterol 3 Ml Neb INHALATION Not Given RT-QID [facility] Albuterol/Ipratropium 3 ml 01/19/20 10:22 Ipratropium-Albuterol 3 Ml Neb INHALATION RT-Q4H PRN Shortness Of Breath Or Wheezing Azithromycin 500 mg 01/19/20 12:00 01/19/20 13:20 Azithromycin 500 Mg Tab PO 500 mg DAILY@1200 [facility] Administration Bisacodyl 5 mg 01/19/20 14:33 Bisacodyl 5 Mg Tablet.Dr PO DAILY PRN Constipation Budesonide 0.5 mg 01/19/20 20:00 01/19/20 20:07 Budesonide 0.5 Mg/2 Ml Nebu INHALATION Not Given RT-BID [facility] Diltiazem HCl 30 mg 01/20/20 09:00 Diltiazem Oral 30 Mg Tab PO TID [facility] Diphenhydramine HCl 25 mg 01/19/20 18:15 01/20/20 01:58 Diphenhydramine 25 Mg Cap PO 25 mg HS PRN Administration Insomnia Flecainide Acetate 50 mg 01/19/20 21:00 01/19/20 19:56 Flecainide 50 Mg Tab PO 50 mg Q12HR [facility] Administration Formoterol Fumarate 20 mcg 01/19/20 20:00 01/19/20 20:08 Formoterol Fumarate 20 Mcg/2 Ml Nebu INHALATION Not Given RT-BID [facility] Furosemide 40 mg 01/20/20 09:00 Furosemide 40 Mg Tab PO DAILY [facility] Guaifenesin 600 mg 01/19/20 21:00 01/19/20 20:29 Guaifenesin 600 Mg Tablet.Er PO 600 mg Q12HR [facility] Administration Sodium Chloride 1,000 mls @ 10 mls/hr 01/19/20 10:30 01/19/20 20:28 Saline 0.9% IV 10 mls/hr .Q24H [facility] Administration Diltiazem HCl 125 mg/ Sodium 125 mls @ 10 mls/hr 01/19/20 22:00 01/19/20 22:13 Chloride IV 10 mg/hr .[id number] [facility] 10 mls/hr Administration 10 MG/HR Methylprednisolone Sodium Succinate 60 mg 01/19/20 13:00 01/20/20 05:43 Methylprednisolone Sod Succi 125 Mg/2 Ml Vial IV 60 mg Q6HR [facility] Administration Miscellaneous Information 0 each 01/19/20 12:04 Warfarin Per Pharmacy MISCELLANE DIRECTED PRN PHARMACY DOSING PROTOCOL Naloxone HCl 0.2 mg 01/19/20 14:33 Naloxone 0.4 Mg/Ml 1 Ml Vial IV Q2M PRN Opioid Reversal Ondansetron HCl 4 mg 01/19/20 14:33 Ondansetron 4 Mg/2 Ml Vial IVP Q8HR PRN Nausea And Vomiting Warfarin Sodium 3 mg 01/20/20 18:00 Warfarin 3 Mg Tab PO 01/20/20 18:01 ONCE ONE Intake and Output 01/19/20 01/20/20 01/20/20 22:59 06:59 14:59 Intake Total 60 40 Output Total 600 630 Balance -540 -590 Intake: Intake, IV Titration 60 40 Amount Sodium Chloride 0.9% 1, 60 40 000 ml @ 10 mls/hr IV . Q24H [facility] Rx#:[id number] Output: Urine 600 630 Other: Voiding Method Urinal Urinal Weight 65.2 kg 01/20/20 06:22 01/20/20 06:22 Assessment and Plan Assessment: Assessment #1 COPD exacerbation #2 paroxysmal atrial fibrillation #3 multiple comorbid conditions Plan #1 continue the current medical regimen #2 start the patient on Cardizem by mouth #3 continue oral anticoagulation with Coumadin #4 follow-up on the echocardiogram #5 follow-up with the patient
[2020-01-20] MEDS: FUROSEMIDE 40 MG TAB PO SCH (09:08)
[2020-01-20] MEDS: guaiFENesin 600 MG TABLET.ER PO SCH ×2 (09:09→20:33)
[2020-01-20] MEDS: DILTIAZEM ORAL 30 MG TAB PO SCH ×3 (09:09→21:06)
[2020-01-20] MEDS: FLECAINIDE 50 MG TAB PO SCH ×2 (09:57→20:33)
[2020-01-20] MEDS: DOXYCYCLINE 100 MG CAP PO SCH ×2 (09:57→21:06)
--- NOTE | 2020-01-20 11:54 | ECHOF ---
Referral Reason:chf MEASUREMENTS -------- HEIGHT: 182.9 cm WEIGHT: 64.9 kg BP: 136/81 IVSd: 1.2 cm (0.6 - 1.1) LVIDd: 3.5 cm (3.9 - 5.3) LVPWd: 1.2 cm (0.6 - 1.1) IVSs: 1.9 cm LVIDs: 1.8 cm LVPWs: 1.6 cm LA Diam: 3.1 cm (2.7 - 3.8) RVIDd: 2.7 cm (< 3.3) Ao Diam: 3.8 cm (2.0 - 3.7) LA Diam: 2.2 cm (2.7 - 3.8) AV Cusp: 1.7 cm (1.5 - 2.6) EPSS: 0.4 cm MV E Kiko: 0.79 m/s MV DecT: 248 ms MV A Kiko: 0.75 m/s MV E/A Ratio: 1.06 RAP: 5.00 mmHg RVSP: 30.70 mmHg MV EF SLOPE: 34.05 mm/s (70 - 150) MV EXCURSION: 12.15 mm (> 18.000) FINDINGS -------- Sinus rhythm. This was a technically adequate study. The left ventricular size is normal. There is borderline concentric left ventricular hypertrophy. Overall left ventricular systolic function is normal with, an EF between 60 - 65 %. The right ventricle is normal in size. The left atrial size is normal. The right atrium is normal in size. Interatrial and interventricular septum intact. Aortic valve is trileaflet and is mildly thickened. Mild mitral regurgitation is present. Mild tricuspid regurgitation present. Right ventricular systolic pressure is normal at < 35 mmHg. The pulmonic valve was not well visualized. The aortic root is dilated measuring 3.8cm. Normal inferior vena cava with normal inspiratory collapse consistent with estimated right atrial pre ssure of 5 mmHg. There is no pericardial effusion. CONCLUSIONS -------- 1. The left ventricular size is normal. 2. There is borderline concentric left ventricular hypertrophy. 3. Overall left ventricular systolic function is normal with, an EF between 60 - 65 %. 4. Aortic valve is trileaflet and is mildly thickened. 5. Mild mitral regurgitation is present. 6. Mild tricuspid regurgitation present. 7. The aortic root is dilated measuring 3.8cm. 8. There is no pericardial effusion. REFRIGERATOR REPAIRMAN: Nora Burnham RDCS
--- NOTE | 2020-01-20 13:18 | P.PN ---
Subjective Progress Note Date: 01/20/20 Principal diagnosis: Acute COPD exacerbation 84-year-old male patient known to have advanced COPD with an FEV1 of 36% of predicted based on a previous PFT that was done back in 2016. He is followed up in our office on of the care of Dr. Zapata. He has been on Advair and has a ne bulizer at home which she uses around the clock as needed. He also smokes cigarettes. He was woken up to recently. Over the past 2 weeks, he was having dyspnea cough chest congestion and chest tightness and wheezing. No chest pain. He also has an enlarging left lower lobe mass which is quite suspicious for lung cancer. Nevertheless, no biopsies have been done as the patient's overall pulmonary status has been extremely poor. The patient's PET scan done on 12/21/2019 showed increasing mass in the left lower lobe with an SUV being in the indeterminate inflammatory stages. There were also couple of supple indeterminate signal changes in the mediastinum. The patient also had an ascending aortic aneurysm measuring 4.8 cm in size. In the ED, the patient was given bronchodilators and steroids. The patient was given BiPAP which she was unable to tolerate. He was taken off the BiPAP and he was moved to the intensive care unit. I saw immediately after he arrived in. He was a bit an xious. He was having some limited the breathing. He was acutely bronchospastic and wheezy. No hemoptysis. No pleurisy. No swelling lower extremities. Seems to be quite anxious especially with his ongoing shortness of breath. Patient was reevaluated today on 01/20/20, remains in the ICU, his pulmonary status remains very marginal at best. Continues to have intermittent episodes of cough wheezing and shortness of breath. Patient is noted to be dyspneic at rest. Patient is maximized on his bronchodilators. And he is also on antibiotics empirically I switch him to doxycycline today. He is off Cardizem. And patient is known to have severe COPD with FEV1 of 56% at best, and he is also known to have history of left lung mass, highly suspicious for bronchogenic carcinoma, however the patient is noted but not a good candidate for any intervention at this time. WBC count is 15.6 hemoglobin is 13.7 INR is 1.7 in excellent are normal renal profile is normal Objective - Vital Signs Vital signs: Vital Signs Temp 97.5 F L 01/20/20 12:00 Pulse 109 H 01/20/20 13:00 Resp 26 H 01/20/20 13:00 BP 164/90 01/20/20 13:00 Pulse Ox 89 L 01/20/20 13:00 Intake & Output 01/19/20 01/20/20 01/20/20 18:59 06:59 18:59 Intake Total 50 60 173.417 Output Total 950 630 400 Balance -900 -570 -226.583 Weight 65.771 kg 65.2 kg 65.2 kg Intake: Intake, IV Titration 50 60 173.417 Amount Diltiazem 125 mg In 109.667 Sodium Chloride 0.9% 100 ml @ 10 MG/HR 10 mls/hr IV .[id number] [facility] Rx#: [id number] Diltiazem 125 mg In 63.75 Sodium Chloride 0.9% 100 ml @ 5 MG/HR 5 mls/hr IV .Q24H [facility] Rx#:[id number] Sodium Chloride 0.9% 1, 50 60 000 ml @ 10 mls/hr IV . Q24H [facility] Rx#:[id number] Output: Urine 950 630 400 Other: Voiding Method Urinal Urinal # Voids 0 - Exam Gen. Revealed 84-year-old white male, tachypneic, anxious, in mild respiratory distress. Head exam : Atraumatic, normocephalic. EENT: PERRLA, EOMI, no icterus. Neck was supple and without jugular venous distension, thyromegaly, Lungs symmetrical chest expansion, diminished breath sound bilaterally some wheezing on forced expiratory maneuver. Cardiac exam irregular irregular rhythm, no S3 gallop, 2/6 systolic murmur thought the precordium. Abdominal exam : Soft, nontender, no megaly, no rebound, no guarding. Examination of the extremities revealed no clubbing edema or cyanosis. Examination of the skin revealed no evidence of significant rashes, suspicious appearing nevi or other concerning lesions. Neurologic: Alert oriented 3, no gross focal deficits. Psychiatric: Normal mood affect and normal mental status examination. - Labs CBC & Chem 7: 01/20/20 06:22 01/20/20 06:22 Labs: Abnormal Lab Results - Last 24 Hours (Table) 01/19/20 01/19/20 01/20/20 Range/Units 22:36 22:36 06:22 WBC (3.8-10.6) k/uL Lymphocytes # 0.4 L (1.0-4.8) k/uL PT 16.3 H (9.0-12.0) sec INR 1.7 H (<1.2) Sodium 129 L (137-145) mmol/L Chloride 97 L (98-107) mmol/L Glucose 143 H (74-99) mg/dL 01/20/20 01/20/20 Range/Units 06:22 06:22 WBC 15.6 H (3.8-10.6) k/uL Lymphocytes # (1.0-4.8) k/uL PT (9.0-12.0) sec INR (<1.2) Sodium 130 L (137-145) mmol/L Chloride 96 L (98-107) mmol/L Glucose 127 H (74-99) mg/dL Microbiology - Last 24 Hours (Table) 01/19/20 08:55 Blood Culture - Preliminary Blood No Growth after 24 hours 01/19/20 16:09 Gram Stain - Preliminary Sputum Sputum Culture - Preliminary Assessment and Plan Assessment: Impression: Acute on chronic hypoxic respiratory failure Acute exacerbation of COPD 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 History of ascending aortic aneurysm, 4.8 cm in size. Subtherapeutic on INR. Tobacco dependence syndrome. Advanced COPD, FEV1 of 36% at best. Recommendation: Continue present course of bronchodilators including DuoNeb Continue Pulmicort and Perforomist. Continue Solu-Medrol. Start doxycycline and discontinue Zithromax. Unable to tolerate BiPAP Continue cardiac meds including flexion night. Continue to monitor in the ICU. Patient will be switched to ICU status and set of telemetry status Prognosis is definitely poor and guarded. We will continue to follow Time with Patient: Less than 30
--- NOTE | 2020-01-20 14:55 | P.PN ---
Subjective Progress Note Date: 01/20/20 Patient was seen and examined. No acute events overnight. Patient reports slight improvement in his breathing since admission. He continues to report shortness of breath still not back to baseline. He denies any chest pain, or palpitations. No nausea or vomiting. No fever or chills. His is at bedside. Objective - Vital Signs Vital signs: Vital Signs Temp 97.5 F L 01/20/20 12:00 Pulse 98 01/20/20 14:00 Resp 26 H 01/20/20 14:00 BP 145/94 01/20/20 14:00 Pulse Ox 92 L 01/20/20 14:00 Intake & Output 01/19/20 01/20/20 01/20/20 18:59 06:59 18:59 Intake Total 50 60 173.417 Output Total 950 630 400 Balance -900 -570 -226.583 Weight 65.771 kg 65.2 kg 65.2 kg Intake: Intake, IV Titration 50 60 173.417 Amount Diltiazem 125 mg In 109.667 Sodium Chloride 0.9% 100 ml @ 10 MG/HR 10 mls/hr IV .[id number] [facility] Rx#: [id number] Diltiazem 125 mg In 63.75 Sodium Chloride 0.9% 100 ml @ 5 MG/HR 5 mls/hr IV .Q24H [facility] Rx#:[id number] Sodium Chloride 0.9% 1, 50 60 000 ml @ 10 mls/hr IV . Q24H [facility] Rx#:[id number] Output: Urine 950 630 400 Other: Voiding Method Urinal Urinal # Voids 0 - Exam General: [non toxic], [no distress], [appears at stated age] Derm: [warm], [dry] Head: [atraumatic], [normocephalic], [symmetric] Eyes: [EOMI], [no lid lag], [anicteric sclera] Mouth: [no lip lesion], [mucus membranes moist] Cardiovascular: [S1S2 irregular], [no murmur], [positive posterior tibial pulse bilateral], Lungs: [Scattered wheezing bilateral], [no rhonchi, no rales] , [no accessory muscle use] Abdominal: [soft], [ nontender to palpation], [no guarding], [no appreciable organomegaly] Ext: [no gross muscle atrophy], [no edema], [no contractures] Neuro: [no focal neuro deficits] Psych: [Alert], [oriented], [appropriate affect] - Labs CBC & Chem 7: 01/20/20 06:22 01/20/20 06:22 Labs: Abnormal Lab Results - Last 24 Hours (Table) 01/19/20 01/19/20 01/20/20 Range/Units 22:36 22:36 06:22 WBC (3.8-10.6) k/uL Lymphocytes # 0.4 L (1.0-4.8) k/uL PT 16.3 H (9.0-12.0) sec INR 1.7 H (<1.2) Sodium 129 L (137-145) mmol/L Chloride 97 L (98-107) mmol/L Glucose 143 H (74-99) mg/dL 01/20/20 01/20/20 Range/Units 06:22 06:22 WBC 15.6 H (3.8-10.6) k/uL Lymphocytes # (1.0-4.8) k/uL PT (9.0-12.0) sec INR (<1.2) Sodium 130 L (137-145) mmol/L Chloride 96 L (98-107) mmol/L Glucose 127 H (74-99) mg/dL Microbiology - Last 24 Hours (Table) 01/19/20 16:09 Gram Stain - Preliminary Sputum Sputum Culture - Preliminary 01/19/20 08:55 Blood Culture - Preliminary Blood No Growth after 24 hours Assessment and Plan Assessment: Acute hypoxic respiratory failure secondary to Acute exacerbation of COPD - Bronchodilators ATC and prn - steroid - pulm hygiene - antibotics (azithromycin changed to doxycycline) - sputum culture Leukocytosis -Likely related to steroid use no signs of infection Hyponatremia -Sodium 130 slight improvement -Likely dehydration -Patient encourage hydration by Mouth -Repeat BMP tomorrow morning Paroxysmal A fib on Coumadin, subtherapeutic on arrival. - flecainide -Started on diltiazem by mouth - tele - pharmacy to dose coumadin Ascending aortic aneurysm - outpatient follow-up with Dr. Vanegas Lower extremity edema - echo shows EF 60-65% with mild concentric LVH - lasix - follow daily weights Left lung mass - know and being followed by Pulm as outpatinet - had CT/PET Cachexia - consult dietitian - supplements SVT resolved Lactic acid, resolved [Patient admitted for COPD exacerbation. Slight improvement. He is pending clinical improvement. Likely DC in 2-3 days.]
[2020-01-20] MEDS ORDERED: WARFARIN 3 MG TAB PO ONE (18:00)
[2020-01-20] MEDS: SODIUM CHLORIDE 0.9% 1,000 ML IV SCH (21:07)
[2020-01-21] MEDS: methylPREDNISolone SOD SUCCI 125 MG/2 ML VIAL IV SCH ×3 (05:42→17:55)
[2020-01-21 07:27] LABS: Prothrombin Time 19.6 sec (9.0-12.0)
[2020-01-21] MEDS: BUDESONIDE 0.5 MG/2 ML NEBU INHALATION SCH ×2 (07:44→20:34)
[2020-01-21] MEDS: FORMOTEROL FUMARATE 20 MCG/2 ML NEBU INHALATION SCH ×2 (07:44→20:34)
[2020-01-21] MEDS: IPRATROPIUM-ALBUTEROL 3 ML NEB INHALATION SCH ×4 (07:44→20:34)
--- NOTE | 2020-01-21 07:58 | P.PN ---
Subjective Progress Note Date: 01/21/20 Principal diagnosis: Paroxysmal atrial fibrillation This is a pleasant 84-year-old gentleman with a past medical history significant for advanced chronic obstructive pulmonary disease as well as known paroxysmal atrial fibrillation on oral anticoagulation was Coumadin presented to the hospital complaining of increasing in the shortness of breath for the last few days. For the last 2 weeks he has not been feeding well where he was experiencing chest congestion as well as cough as well as wheezing. But for the last several days the shortness of breath has gotten worse where he cannot walk more than a few steps before he stopped because of the shortness of breath. Because of that he decided to come to the hospital. He was admitted with COPD exacerbation and was started on treatment for that. We consulted to see the patient because he has been in and out of atrial fibrillation with RVR. Currently he is in sinus rhythm. As an outpatient the patient was receiving only flecainide and he was not on any AV manav ajit agents. The patient was seen today January 202019. Overall these feeling better internal shortness of breath. On physical examination he still have diminished breathing sounds bilaterally. He has been maintaining normal sinus mechanism with heart rate in the 80s. The pressure is a slightly elevated. I'm going to increase the dose of Cardizem to 60 mg by mouth 3 times a day. He underwent an echocardiogram which revealed normal left ventricular systolic function without significant valvular abnormalities. Objective - Vital Signs Vital signs: Vital Signs Temp 97.8 F 01/21/20 04:00 Pulse 81 01/21/20 07:46 Resp 20 01/21/20 07:00 BP 155/94 01/21/20 07:00 Pulse Ox 92 L 01/21/20 07:00 Intake & Output 01/20/20 01/21/20 01/21/20 18:59 06:59 18:59 Intake Total 173.417 420 10 Output Total 600 580 0 Balance -426.583 -160 10 Weight 65.2 kg 64.2 kg Intake: Intake, IV Titration 173.417 30 10 Amount Diltiazem 125 mg In 109.667 Sodium Chloride 0.9% 100 ml @ 10 MG/HR 10 mls/hr IV .[id number] [facility] Rx#: [id number] Diltiazem 125 mg In 63.75 Sodium Chloride 0.9% 100 ml @ 5 MG/HR 5 mls/hr IV .Q24H [facility] Rx#:[id number] Sodium Chloride 0.9% 1, 30 10 000 ml @ 10 mls/hr IV . Q24H [facility] Rx#:[id number] Oral 390 Output: Urine 600 580 0 Other: Voiding Method Urinal Urinal # Voids 0 1 0 # Bowel Movements 1 - Constitutional General appearance: Present: no acute distress - Respiratory Respiratory: bilateral: diminished - Cardiovascular Rhythm: regular Heart sounds: normal: S1, S2 - Labs CBC & Chem 7: 01/20/20 06:22 01/20/20 06:22 Labs: Abnormal Lab Results - Last 24 Hours (Table) 01/21/20 Range/Units 06:42 PT 19.6 H (9.0-12.0) sec INR 2.0 H (<1.2) Microbiology - Last 24 Hours (Table) 01/19/20 16:09 Gram Stain - Preliminary Sputum Sputum Culture - Preliminary 01/19/20 08:55 Blood Culture - Preliminary Blood No Growth after 24 hours Assessment and Plan Assessment: Assessment #1 COPD exacerbation #2 paroxysmal atrial fibrillation #3 multiple comorbid conditions Plan #1 increase the dose of Cardizem by mouth #2 continue oral anticoagulation was Coumadin #3 the echocardiogram was reviewed #4 follow-up with the patient
--- NOTE | 2020-01-21 08:15 | XR ---
EXAMINATION TYPE: XR chest 1V portable DATE OF EXAM: 01/21/2020 COMPARISON: Prior chest x-ray 01/20/2020 HISTORY: Shortness of breath TECHNIQUE: Single frontal view of the chest is obtained. FINDINGS: There are prominent lung volumes consistent with underlying COPD. Biapical pleural thicken ing is stable. Aorta is dense and aneurysmal. Heart size is stable. Surgical clips present at the gas troesophageal junction level. No evident pneumothorax or pleural effusion. There are overlying cardia c leads and the patient is rotated. Nodular density in the retrocardiac region is again seen. IMPRESSION: Stable findings. Aortic aneurysm, emphysema, retrocardiac soft tissue mass.
[2020-01-21 08:32] LABS: Basophils % (A) 0 %; Eosinophils % (A) 0 %; HCT 43.3 % (39.0-53.0); HGB 13.7 gm/dL (13.0-17.5); Lymphocytes # (A) 0.3 k/uL (1.0-4.8); Lymphocytes % (A) 2 %; MCH 29.5 pg (25.0-35.0); MCHC 31.7 g/dL (31.0-37.0); MCV 93.1 fL (80.0-100.0); Mean Platelet Volume 7.3; Monocytes # (A) 0.9 k/uL (0-1.0); Monocytes % (A) 5 %; Neutrophils # (A) 15.2 k/uL (1.3-7.7); Neutrophils % (A) 93 %; Platelet Count 252 k/uL (150-450); RBC 4.65 m/uL (4.30-5.90); RDW 14.1 % (11.5-15.5); WBC 16.4 k/uL (3.8-10.6)
[2020-01-21 08:35] LABS: Calcium 8.9 mg/dL (8.4-10.2); Potassium 4.6 mmol/L (3.5-5.1)
[2020-01-21] MEDS: DILTIAZEM ORAL 30 MG TAB PO SCH ×3 (08:52→21:00)
[2020-01-21] MEDS: FUROSEMIDE 40 MG TAB PO SCH (08:52)
[2020-01-21] MEDS: DOXYCYCLINE 100 MG CAP PO SCH ×2 (08:52→20:59)
[2020-01-21] MEDS: guaiFENesin 600 MG TABLET.ER PO SCH ×2 (08:52→21:00)
[2020-01-21] MEDS: FLECAINIDE 50 MG TAB PO SCH ×2 (08:52→21:00)
[2020-01-21] MEDS: ALPRAZolam 0.25 MG TAB PO PRN (11:35)
--- NOTE | 2020-01-21 13:35 | P.PN ---
Subjective Progress Note Date: 01/21/20 Principal diagnosis: Acute COPD exacerbation 84-year-old male patient known to have advanced COPD with an FEV1 of 36% of predicted based on a previous PFT that was done back in 2016. He is followed up in our office on of the care of Dr. Zapata. He has been on Advair and has a ne bulizer at home which she uses around the clock as needed. He also smokes cigarettes. He was woken up to recently. Over the past 2 weeks, he was having dyspnea cough chest congestion and chest tightness and wheezing. No chest pain. He also has an enlarging left lower lobe mass which is quite suspicious for lung cancer. Nevertheless, no biopsies have been done as the patient's overall pulmonary status has been extremely poor. The patient's PET scan done on 12/21/2019 showed increasing mass in the left lower lobe with an SUV being in the indeterminate inflammatory stages. There were also couple of supple indeterminate signal changes in the mediastinum. The patient also had an ascending aortic aneurysm measuring 4.8 cm in size. In the ED, the patient was given bronchodilators and steroids. The patient was given BiPAP which she was unable to tolerate. He was taken off the BiPAP and he was moved to the intensive care unit. I saw immediately after he arrived in. He was a bit an xious. He was having some limited the breathing. He was acutely bronchospastic and wheezy. No hemoptysis. No pleurisy. No swelling lower extremities. Seems to be quite anxious especially with his ongoing shortness of breath. Patient was reevaluated today on 01/20/20, remains in the ICU, his pulmonary status remains very marginal at best. Continues to have intermittent episodes of cough wheezing and shortness of breath. Patient is noted to be dyspneic at rest. Patient is maximized on his bronchodilators. And he is also on antibiotics empirically I switch him to doxycycline today. He is off Cardizem. And patient is known to have severe COPD with FEV1 of 56% at best, and he is also known to have history of left lung mass, highly suspicious for bronchogenic carcinoma, however the patient is noted but not a good candidate for any intervention at this time. WBC count is 15.6 hemoglobin is 13.7 INR is 1.7 in excellent are normal renal profile is normal Reevaluated today on 01/21/20, patient remains in the ICU, he is on 2 L nasal cannula, O2 saturations 93%, patient is a bit anxious, however he seems to be improving compared to how he felt when he first came in. Remains in and out of atrial fibrillation, and his Cardizem was increased to 60 mg by mouth 3 times a day. Xanax was added today because of his anxiety. His IV fluids remains at KVO. Chest x-ray is basically about the same, no acute process is noted. Continues to have left lower lobe mass. I plan to transfer the patient out of the ICU today to a monitor bed on [facility] if a bed is available. Labs were r eviewed his INR is therapeutic WBC count is 16.4 lites are normal renal profile is normal. Objective - Vital Signs Vital signs: Vital Signs Temp 98.1 F 01/21/20 08:00 Pulse 89 01/21/20 11:21 Resp 24 01/21/20 10:00 BP 132/96 01/21/20 10:00 Pulse Ox 92 L 01/21/20 10:00 Intake & Output 01/20/20 01/21/20 01/21/20 18:59 06:59 18:59 Intake Total 173.417 420 40 Output Total 600 580 1 Balance -426.583 -160 39 Weight 65.2 kg 64.2 kg Intake: IV 30 Sodium Chloride 0.9% 1, 30 000 ml @ 10 mls/hr IV . Q24H [facility] Rx#:[id number] Intake, IV Titration 173.417 30 10 Amount Diltiazem 125 mg In 109.667 Sodium Chloride 0.9% 100 ml @ 10 MG/HR 10 mls/hr IV .[id number] [facility] Rx#: [id number] Diltiazem 125 mg In 63.75 Sodium Chloride 0.9% 100 ml @ 5 MG/HR 5 mls/hr IV .Q24H [facility] Rx#:[id number] Sodium Chloride 0.9% 1, 30 10 000 ml @ 10 mls/hr IV . Q24H [facility] Rx#:[id number] Oral 390 Output: Urine 600 580 0 Stool 1 Other: Voiding Method Urinal Urinal Urinal # Voids 0 1 0 # Bowel Movements 1 - Exam Gen. Revealed 84-year-old white male, tachypneic, anxious, in no distress Head exam : Atraumatic, normocephalic. EENT: PERRLA, EOMI, no icterus. Neck was supple and without jugular venous distension, thyromegaly, Lungs symmetrical chest expansion, diminished breath sound bilaterally some wheezing on forced expiratory maneuver. Cardiac exam irregular irregular rhythm, no S3 gallop, 2/6 systolic murmur th ought the precordium. Abdominal exam : Soft, nontender, no megaly, no rebound, no guarding. Examination of the extremities revealed no clubbing edema or cyanosis. Examination of the skin revealed no evidence of significant rashes, suspicious appearing nevi or other concerning lesions. Neurologic: Alert oriented 3, no gross focal deficits. Psychiatric: Normal mood affect and normal mental status examination. - Labs CBC & Chem 7: 01/21/20 06:42 01/21/20 06:42 Labs: Abnormal Lab Results - Last 24 Hours (Table) 01/21/20 01/21/20 01/21/20 Range/Units 06:42 06:42 06:42 WBC 16.4 H (3.8-10.6) k/uL Neutrophils # 15.2 H (1.3-7.7) k/uL Lymphocytes # 0.3 L (1.0-4.8) k/uL PT 19.6 H (9.0-12.0) sec INR 2.0 H (<1.2) Sodium 130 L (137-145) mmol/L Chloride 93 L (98-107) mmol/L Carbon Dioxide 31 H (22-30) mmol/L BUN 28 H (9-20) mg/dL Glucose 111 H (74-99) mg/dL Microbiology - Last 24 Hours (Table) 01/19/20 08:55 Blood Culture - Preliminary Blood No Growth after 48 hours 01/19/20 16:09 Gram Stain - Final Sputum Sputum Culture - Final Assessment and Plan Assessment: Impression: Acute on chronic hypoxic respiratory failure Acute exacerbation of COPD 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 History of ascending aortic aneurysm, 4.8 cm in size. Subtherapeutic on INR. Tobacco dependence syndrome. Advanced COPD, FEV1 of 36% at best. Generalized anxiety disorder Recommendation: +0.25 mg every 8 hours when necessary. Continue present course of bronchodilators including DuoNeb Continue Pulmicort and Perforomist. Continue Solu-Medrol. 2 new doxycycline per Unable to tolerate BiPAP Continue cardiac meds , Cardizem was increased. Transfer patient to a monitored bed on [facility] We'll continue to follow Time with Patient: Less than 30
--- NOTE | 2020-01-21 13:40 | P.PN ---
Subjective Progress Note Date: 01/21/20 Patient was seen and examined. No acute events overnight. Patient reports slight improvement in his breathing since admission. He continues to report shortness of breath still not back to baseline. He denies any chest pain, or palpitations. No nausea or vomiting. No fever or chills. Son is at bedside. Lower extremity swelling improved. Objective - Vital Signs Vital signs: Vital Signs Temp 98.1 F 01/21/20 08:00 Pulse 89 01/21/20 11:21 Resp 24 01/21/20 10:00 BP 132/96 01/21/20 10:00 Pulse Ox 92 L 01/21/20 10:00 Intake & Output 01/20/20 01/21/20 01/21/20 18:59 06:59 18:59 Intake Total 173.417 420 40 Output Total 600 580 1 Balance -426.583 -160 39 Weight 65.2 kg 64.2 kg Intake: IV 30 Sodium Chloride 0.9% 1, 30 000 ml @ 10 mls/hr IV . Q24H [facility] Rx#:[id number] Intake, IV Titration 173.417 30 10 Amount Diltiazem 125 mg In 109.667 Sodium Chloride 0.9% 100 ml @ 10 MG/HR 10 mls/hr IV .[id number] [facility] Rx#: [id number] Diltiazem 125 mg In 63.75 Sodium Chloride 0.9% 100 ml @ 5 MG/HR 5 mls/hr IV .Q24H [facility] Rx#:[id number] Sodium Chloride 0.9% 1, 30 10 000 ml @ 10 mls/hr IV . Q24H [facility] Rx#:[id number] Oral 390 Output: Urine 600 580 0 Stool 1 Other: Voiding Method Urinal Urinal Urinal # Voids 0 1 0 # Bowel Movements 1 - Exam General: [non toxic], [no distress], [appears at stated age] Derm: [warm], [dry] Head: [atraumatic], [normocephalic], [symmetric] Eyes: [EOMI], [no lid lag], [anicteric sclera] Mouth: [no lip lesion], [mucus membranes moist] Cardiovascular: [S1S2 irregular], [no murmur], [positive posterior tibial pulse bilateral], Lungs: [Scattered wheezing bilateral], [no rhonchi, no rales] , [no accessory muscle use] Abdominal: [soft], [ nontender to palpation], [no guarding], [no appreciable organomegaly] Ext: [no gross muscle atrophy], [no edema], [no contractures] Neuro: [no focal neuro deficits] Psych: [Alert], [oriented], [appropriate affect] - Labs CBC & Chem 7: 01/21/20 06:42 01/21/20 06:42 Labs: Abnormal Lab Results - Last 24 Hours (Table) 01/21/20 01/21/20 01/21/20 Range/Units 06:42 06:42 06:42 WBC 16.4 H (3.8-10.6) k/uL Neutrophils # 15.2 H (1.3-7.7) k/uL Lymphocytes # 0.3 L (1.0-4.8) k/uL PT 19.6 H (9.0-12.0) sec INR 2.0 H (<1.2) Sodium 130 L (137-145) mmol/L Chloride 93 L (98-107) mmol/L Carbon Dioxide 31 H (22-30) mmol/L BUN 28 H (9-20) mg/dL Glucose 111 H (74-99) mg/dL Microbiology - Last 24 Hours (Table) 01/19/20 08:55 Blood Culture - Preliminary Blood No Growth after 48 hours 01/19/20 16:09 Gram Stain - Final Sputum Sputum Culture - Final Assessment and Plan Assessment: Acute hypoxic respiratory failure secondary to Acute exacerbation of COPD - Bronchodilators ATC and prn - steroid - pulm hygiene - antibotics (azithromycin changed to doxycycline) - sputum culture Leukocytosis -Likely related to steroid use no signs of infection Hyponatremia -Sodium 130 slight improvement -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 - flecainide -Started on diltiazem by mouth, increased - tele - pharmacy to dose coumadin Ascending aortic aneurysm - outpatient follow-up with Dr. Vanegas Lower extremity edema - echo shows EF 60-65% with mild concentric LVH - lasix - follow daily weights Left lung mass - know and being followed by Pulm as outpatinet - had CT/PET Cachexia - consult dietitian - supplements SVT resolved Lactic acid, resolved [Patient admitted for COPD exacerbation. Slight improvement. He is pending clinical improvement. Likely DC in 1-2 days.]
[2020-01-21 17:36] LABS: Hemoglobin A1C 5.8 % (4.0-6.0)
[2020-01-21] MEDS ORDERED: WARFARIN 3 MG TAB PO ONE (18:00)
[2020-01-21] MEDS: SODIUM CHLORIDE 0.9% 1,000 ML IV SCH (21:15)
[2020-01-22] MEDS: methylPREDNISolone SOD SUCCI 125 MG/2 ML VIAL IV SCH ×4 (01:19→18:32)
[2020-01-22 07:11] LABS: INR 1.9 (<1.2); Prothrombin Time 18.6 sec (9.0-12.0)
[2020-01-22] MEDS: BUDESONIDE 0.5 MG/2 ML NEBU INHALATION SCH ×3 (07:28→20:35)
[2020-01-22] MEDS: IPRATROPIUM-ALBUTEROL 3 ML NEB INHALATION SCH ×4 (07:28→20:34)
[2020-01-22] MEDS: FORMOTEROL FUMARATE 20 MCG/2 ML NEBU INHALATION SCH ×3 (07:28→20:35)
--- NOTE | 2020-01-22 07:34 | P.PN ---
Subjective Progress Note Date: 01/22/20 Principal diagnosis: Paroxysmal atrial fibrillation This is a pleasant 84-year-old gentleman with a past medical history significant for advanced chronic obstructive pulmonary disease as well as known paroxysmal atrial fibrillation on oral anticoagulation was Coumadin presented to the hospital complaining of increasing in the shortness of breath for the last few days. For the last 2 weeks he has not been feeding well where he was experiencing chest congestion as well as cough as well as wheezing. But for the last several days the shortness of breath has gotten worse where he cannot walk more than a few steps before he stopped because of the shortness of breath. Because of that he decided to come to the hospital. He was admitted with COPD exacerbation and was started on treatment for that. We consulted to see the patient because he has been in and out of atrial fibrillation with RVR. Currently he is in sinus rhythm. As an outpatient the patient was receiving only flecainide and he was not on any AV manav ajit agents. The patient was seen today January [id number]. Yesterday I did increase the dose of Cardizem. The heart rate has been under good control. He has been maintaining normal sinus mechanism. He is on oral anticoagulation was Coumadin. The echo revealed normal LV function without any significant valvular abnormalities. From the cardiac vascular standpoint of view, the patient can be transferred out of the ICU Objective - Vital Signs Vital signs: Vital Signs Temp 98.0 F 01/22/20 04:00 Pulse 85 01/22/20 06:00 Resp 28 H 01/22/20 06:00 BP 143/87 01/22/20 06:00 Pulse Ox 92 L 01/22/20 06:00 Intake & Output 01/21/20 01/22/20 01/22/20 18:59 06:59 18:59 Intake Total 100 70 Output Total 251 300 Balance -151 -230 Weight 64.2 kg Intake: IV 90 70 Sodium Chloride 0.9% 1, 90 70 000 ml @ 10 mls/hr IV . Q24H [facility] Rx#:[id number] Intake, IV Titration 10 Amount Sodium Chloride 0.9% 1, 10 000 ml @ 10 mls/hr IV . Q24H [facility] Rx#:[id number] Output: Urine 250 300 Stool 1 Other: Voiding Method Urinal Urinal # Voids 2 - Constitutional General appearance: Present: no acute distress - Respiratory Respiratory: bilateral: CTA - Cardiovascular Rhythm: regular Heart sounds: normal: S1, S2 - Labs CBC & Chem 7: 01/21/20 06:42 01/21/20 06:42 Labs: Abnormal Lab Results - Last 24 Hours (Table) 01/21/20 01/21/20 01/22/20 Range/Units 06:42 06:42 06:36 WBC 16.4 H (3.8-10.6) k/uL Neutrophils # 15.2 H (1.3-7.7) k/uL Lymphocytes # 0.3 L (1.0-4.8) k/uL PT 18.6 H (9.0-12.0) sec INR 1.9 H (<1.2) Sodium 130 L (137-145) mmol/L Chloride 93 L (98-107) mmol/L Carbon Dioxide 31 H (22-30) mmol/L BUN 28 H (9-20) mg/dL Glucose 111 H (74-99) mg/dL Microbiology - Last 24 Hours (Table) 01/19/20 08:55 Blood Culture - Preliminary Blood No Growth after 48 hours 01/19/20 16:09 Gram Stain - Final Sputum Sputum Culture - Final Assessment and Plan Assessment: Assessment #1 COPD exacerbation #2 paroxysmal atrial fibrillation #3 multiple comorbid conditions Plan #1 continue the current medical regimen #2 continue oral anticoagulations #3 follow-up with the patient #4 the patient can be transferred out of the ICU
[2020-01-22] MEDS: FLECAINIDE 50 MG TAB PO SCH ×2 (09:07→20:09)
[2020-01-22] MEDS: FUROSEMIDE 40 MG TAB PO SCH (09:08)
[2020-01-22] MEDS: DILTIAZEM ORAL 30 MG TAB PO SCH ×3 (09:08→23:50)
[2020-01-22] MEDS: DOXYCYCLINE 100 MG CAP PO SCH ×2 (09:08→20:09)
[2020-01-22] MEDS: guaiFENesin 600 MG TABLET.ER PO SCH ×2 (09:09→20:09)
[2020-01-22] MEDS: ALPRAZolam 0.25 MG TAB PO PRN (09:27)
--- NOTE | 2020-01-22 14:17 | P.PN ---
Subjective Progress Note Date: 01/22/20 Principal diagnosis: Acute COPD exacerbation 84-year-old male patient known to have advanced COPD with an FEV1 of 36% of predicted based on a previous PFT that was done back in 2016. He is followed up in our office on of the care of Dr. Zapata. He has been on Advair and has a ne bulizer at home which she uses around the clock as needed. He also smokes cigarettes. He was woken up to recently. Over the past 2 weeks, he was having dyspnea cough chest congestion and chest tightness and wheezing. No chest pain. He also has an enlarging left lower lobe mass which is quite suspicious for lung cancer. Nevertheless, no biopsies have been done as the patient's overall pulmonary status has been extremely poor. The patient's PET scan done on 12/21/2019 showed increasing mass in the left lower lobe with an SUV being in the indeterminate inflammatory stages. There were also couple of supple indeterminate signal changes in the mediastinum. The patient also had an ascending aortic aneurysm measuring 4.8 cm in size. In the ED, the patient was given bronchodilators and steroids. The patient was given BiPAP which she was unable to tolerate. He was taken off the BiPAP and he was moved to the intensive care unit. I saw immediately after he arrived in. He was a bit an xious. He was having some limited the breathing. He was acutely bronchospastic and wheezy. No hemoptysis. No pleurisy. No swelling lower extremities. Seems to be quite anxious especially with his ongoing shortness of breath. Patient was reevaluated today on 01/20/20, remains in the ICU, his pulmonary status remains very marginal at best. Continues to have intermittent episodes of cough wheezing and shortness of breath. Patient is noted to be dyspneic at rest. Patient is maximized on his bronchodilators. And he is also on antibiotics empirically I switch him to doxycycline today. He is off Cardizem. And patient is known to have severe COPD with FEV1 of 56% at best, and he is also known to have history of left lung mass, highly suspicious for bronchogenic carcinoma, however the patient is noted but not a good candidate for any intervention at this time. WBC count is 15.6 hemoglobin is 13.7 INR is 1.7 in excellent are normal renal profile is normal Reevaluated today on 01/21/20, patient remains in the ICU, he is on 2 L nasal cannula, O2 saturations 93%, patient is a bit anxious, however he seems to be improving compared to how he felt when he first came in. Remains in and out of atrial fibrillation, and his Cardizem was increased to 60 mg by mouth 3 times a day. Xanax was added today because of his anxiety. His IV fluids remains at KVO. Chest x-ray is basically about the same, no acute process is noted. Continues to have left lower lobe mass. I plan to transfer the patient out of the ICU today to a monitor bed on [facility] if a bed is available. Labs were r eviewed his INR is therapeutic WBC count is 16.4 lites are normal renal profile is normal. Patient was reevaluated today on 01/22/20, remains in the ICU, patient is presently on overflow from [facility]. Patient is about the same, get short of breath with any activity, he is on 2 L nasal cannula, still complains of shortness of breath with any exertion. No cough no fever no chills no hemoptysis no chest pain. INR is 1.9 today. Otherwise no labs Objective - Vital Signs Vital signs: Vital Signs Temp 97.9 F 01/22/20 12:00 Pulse 73 01/22/20 11:25 Resp 19 01/22/20 12:00 BP 140/94 01/22/20 12:00 Pulse Ox 92 L 01/22/20 06:00 Intake & Output 01/21/20 01/22/20 01/22/20 18:59 06:59 18:59 Intake Total 100 70 330 Output Total 251 300 800 Balance -151 -230 -470 Weight 64.2 kg Intake: IV 90 70 80 Sodium Chloride 0.9% 1, 90 70 80 000 ml @ 10 mls/hr IV . Q24H [facility] Rx#:[id number] Intake, IV Titration 10 Amount Sodium Chloride 0.9% 1, 10 000 ml @ 10 mls/hr IV . Q24H [facility] Rx#:[id number] Oral 250 Output: Urine 250 300 800 Stool 1 Other: Voiding Method Urinal Urinal Urinal # Voids 2 - Exam Gen. Revealed 84-year-old white male, tachypneic, anxious, in no distress Head exam : Atraumatic, normocephalic. EENT: PERRLA, EOMI, no icterus. Neck was supple and without jugular venous distension, thyromegaly, Lungs symmetrical chest expansion, diminished breath sound bilaterally no rhonchi and no wheezes. Cardiac exam irregular irregular rhythm, no S3 gallop, 2/6 systolic murmur thought the precordium. Abdominal exam : Soft, nontender, no megaly, no rebound, no guarding. Examination of the extremities revealed no clubbing edema or cyanosis. Examination of the skin revealed no evidence of significant rashes, suspicious appearing nevi or other concerning lesions. Neurologic: Alert oriented 3, no gross focal deficits. Psychiatric: Normal mood affect and normal mental status examination. - Labs CBC & Chem 7: 01/21/20 06:42 01/21/20 06:42 Labs: Abnormal Lab Results - Last 24 Hours (Table) 01/22/20 Range/Units 06:36 PT 18.6 H (9.0-12.0) sec INR 1.9 H (<1.2) Microbiology - Last 24 Hours (Table) 01/19/20 08:55 Blood Culture - Preliminary Blood No Growth after 72 hours Assessment and Plan Assessment: Impression: Acute on chronic hypoxic respiratory failure Acute exacerbation of COPD 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 History of ascending aortic aneurysm, 4.8 cm in size. Subtherapeutic on INR. Tobacco dependence syndrome. Advanced COPD, FEV1 of 36% at best. Generalized anxiety disorder Recommendation: I had a long discussion with the patient and went over his previous CT of the c hest in March and his most recent CT of the chest, the left lower lobe mass is highly suspicious for bronchogenic carcinoma, it was basically a small nodule back in March of 2019. Patient was made aware that this is cancerous unless proven otherwise Continue Xanax at 0.25 mg 3 times a day when necessary. Continue present course of bronchodilators including DuoNeb Continue Pulmicort and Perforomist. Continue Solu-Medrol. Continue doxycycline Unable to tolerate BiPAP Continue cardiac meds , Cardizem was increased. Transfer patient to a monitored bed, once a bed is available. We'll continue to follow Time with Patient: Less than 30
--- NOTE | 2020-01-22 15:35 | P.PN ---
Subjective Progress Note Date: 01/22/20 Patient was seen and examined. No acute events overnight. Patient reports slight improvement in his breathing since admission. He continues to report shortness of breath still not back to baseline. He denies any chest pain, or palpitations. No nausea or vomiting. No fever or chills. Objective - Vital Signs Vital signs: Vital Signs Temp 97.9 F 01/22/20 12:00 Pulse 86 01/22/20 15:30 Resp 19 01/22/20 12:00 BP 140/94 01/22/20 12:00 Pulse Ox 92 L 01/22/20 10:03 Intake & Output 01/21/20 01/22/20 01/22/20 18:59 06:59 18:59 Intake Total 100 70 330 Output Total 251 300 800 Balance -151 -230 -470 Weight 64.2 kg Intake: IV 90 70 80 Sodium Chloride 0.9% 1, 90 70 80 000 ml @ 10 mls/hr IV . Q24H [facility] Rx#:[id number] Intake, IV Titration 10 Amount Sodium Chloride 0.9% 1, 10 000 ml @ 10 mls/hr IV . Q24H [facility] Rx#:[id number] Oral 250 Output: Urine 250 300 800 Stool 1 Other: Voiding Method Urinal Urinal Urinal # Voids 2 - Exam General: [non toxic], [no distress], [appears at stated age] Derm: [warm], [dry] Head: [atraumatic], [normocephalic], [symmetric] Eyes: [EOMI], [no lid lag], [anicteric sclera] Mouth: [no lip lesion], [mucus membranes moist] Cardiovascular: [S1S2 irregular], [no murmur], [positive posterior tibial pulse bilateral], Lungs: [Scattered wheezing bilateral], [no rhonchi, no rales] , [no accessory muscle use] Abdominal: [soft], [ nontender to palpation], [no guarding], [no appreciable organomegaly] Ext: [no gross muscle atrophy], [no edema], [no contractures] Neuro: [no focal neuro deficits] Psych: [Alert], [oriented], [appropriate affect] - Labs CBC & Chem 7: 01/21/20 06:42 01/21/20 06:42 Labs: Abnormal Lab Results - Last 24 Hours (Table) 01/22/20 Range/Units 06:36 PT 18.6 H (9.0-12.0) sec INR 1.9 H (<1.2) Microbiology - Last 24 Hours (Table) 01/19/20 08:55 Blood Culture - Preliminary Blood No Growth after 72 hours Assessment and Plan Assessment: Acute hypoxic respiratory failure secondary to Acute exacerbation of COPD - Bronchodilators ATC and prn - steroid - pulm hygiene - antibotics (azithromycin changed to doxycycline) - sputum culture Leukocytosis -Likely related to steroid use no signs of infection Hyponatremia -Sodium 130 slight improvement -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 - flecainide -Started on diltiazem by mouth, increased - tele - pharmacy to dose coumadin Ascending aortic aneurysm - outpatient follow-up with Dr. Vanegas Lower extremity edema - echo shows EF 60-65% with mild concentric LVH - lasix - follow daily weights Left lung mass - know and being followed by Pulm as outpatient - had CT/PET Cachexia - consult dietitian - supplements SVT resolved Lactic acid, resolved [Patient admitted for COPD exacerbation. Slight improvement. He is pending clinical improvement. Discussed with Pulmonology. Likely DC in 2-3 days.]
[2020-01-22] MEDS ORDERED: WARFARIN 5 MG TAB PO ONE (18:00)
[2020-01-22] MEDS: HYDROcodone/APAP 5-325MG 1 EACH TAB PO PRN (21:04)
[2020-01-22] MEDS: SODIUM CHLORIDE 0.9% 1,000 ML IV SCH (21:36)
[2020-01-22] MEDS ORDERED: KETOROLAC 15 MG/ML 1 ML VIAL IVP STA (21:36)
[2020-01-23] MEDS: methylPREDNISolone SOD SUCCI 125 MG/2 ML VIAL IV SCH ×5 (00:55→23:08)
[2020-01-23 07:15] LABS: INR 2.2 (<1.2); Prothrombin Time 21.5 sec (9.0-12.0)
--- NOTE | 2020-01-23 07:49 | P.PN ---
Subjective Progress Note Date: 01/23/20 Principal diagnosis: Paroxysmal atrial fibrillation This is a pleasant 84-year-old gentleman with a past medical history significant for advanced chronic obstructive pulmonary disease as well as known paroxysmal atrial fibrillation on oral anticoagulation was Coumadin presented to the hospital complaining of increasing in the shortness of breath for the last few days. For the last 2 weeks he has not been feeding well where he was experiencing chest congestion as well as cough as well as wheezing. But for the last several days the shortness of breath has gotten worse where he cannot walk more than a few steps before he stopped because of the shortness of breath. Because of that he decided to come to the hospital. He was admitted with COPD exacerbation and was started on treatment for that. We consulted to see the patient because he has been in and out of atrial fibrillation with RVR. Currently he is in sinus rhythm. As an outpatient the patient was receiving only flecainide and he was not on any AV manav ajit agents. The patient was seen today 01/23/2020. He has been in and out of atrial fibrillation but even if he is in atrial fibrillation with a heart rate has been controlled. Currently he is on Cardizem 60 mg 3 times a day. He is on oral ant icoagulation with Coumadin. From the cardiovascular standpoint of view, the patient possibly can be discharged home in the next 24 hours. He is at least coronary out of the ICU. The Coumadin today is 2.2. Objective - Vital Signs Vital signs: Vital Signs Temp 98.4 F 01/22/20 23:00 Pulse 106 H 01/22/20 23:00 Resp 19 01/22/20 23:00 BP 126/77 01/22/20 23:00 Pulse Ox 90 L 01/22/20 23:00 Intake & Output 01/22/20 01/23/20 01/23/20 18:59 06:59 18:59 Intake Total 550 290 Output Total 1100 600 Balance -550 -310 Weight 63.8 kg Intake: IV 100 140 Sodium Chloride 0.9% 1, 100 140 000 ml @ 10 mls/hr IV . Q24H [facility] Rx#:[id number] Oral 450 150 Output: Urine 1100 600 Other: Voiding Method Urinal Urinal - Constitutional General appearance: Present: no acute distress - Respiratory Respiratory: bilateral: CTA - Cardiovascular Rhythm: regular Heart sounds: normal: S1, S2 - Labs CBC & Chem 7: 01/21/20 06:42 01/21/20 06:42 Labs: Abnormal Lab Results - Last 24 Hours (Table) 01/23/20 Range/Units 06:49 PT 21.5 H (9.0-12.0) sec INR 2.2 H (<1.2) Microbiology - Last 24 Hours (Table) 01/19/20 08:55 Blood Culture - Preliminary Blood No Growth after 72 hours Assessment and Plan Assessment: Assessment #1 COPD exacerbation #2 paroxysmal atrial fibrillation #3 multiple comorbid conditions Plan #1 continue the current medical regimen #2 continue oral anticoagulations #3 follow-up with the patient #4 the patient can be transferred out of the ICU
[2020-01-23] MEDS: BUDESONIDE 0.5 MG/2 ML NEBU INHALATION SCH ×2 (08:07→20:43)
[2020-01-23] MEDS: FORMOTEROL FUMARATE 20 MCG/2 ML NEBU INHALATION SCH ×2 (08:07→20:43)
[2020-01-23] MEDS: IPRATROPIUM-ALBUTEROL 3 ML NEB INHALATION SCH ×4 (08:07→20:43)
[2020-01-23] MEDS: guaiFENesin 600 MG TABLET.ER PO SCH ×2 (09:57→21:41)
[2020-01-23] MEDS: DOXYCYCLINE 100 MG CAP PO SCH ×2 (09:57→21:41)
[2020-01-23] MEDS: FUROSEMIDE 40 MG TAB PO SCH (09:57)
[2020-01-23] MEDS: DILTIAZEM ORAL 30 MG TAB PO SCH ×2 (09:57→17:04)
[2020-01-23] MEDS: FLECAINIDE 50 MG TAB PO SCH ×2 (09:57→21:41)
--- NOTE | 2020-01-23 11:18 | P.PN ---
Subjective Progress Note Date: 01/23/20 Patient was seen and examined. No acute events overnight. Patient reports improvement in his breathing since admission. He continues to report shortness of breath still not back to baseline. Failed home O2 eval yesterday. Downgraded from ICU today. He denies any chest pain, or palpitations. No alisa sea or vomiting. No fever or chills. Objective - Vital Signs Vital signs: Vital Signs Temp 97.7 F 01/23/20 07:00 Pulse 84 01/23/20 08:33 Resp 25 H 01/23/20 07:00 BP 157/100 01/23/20 07:00 Pulse Ox 94 L 01/23/20 07:00 Intake & Output 01/22/20 01/23/20 01/23/20 18:59 06:59 18:59 Intake Total 550 290 Output Total 1100 600 Balance -550 -310 Weight 63.8 kg Intake: IV 100 140 Sodium Chloride 0.9% 1, 100 140 000 ml @ 10 mls/hr IV . Q24H [facility] Rx#:[id number] Oral 450 150 Output: Urine 1100 600 Other: Voiding Method Urinal Urinal - Exam General: [non toxic], [no distress], [appears at stated age] Derm: [warm], [dry] Head: [atraumatic], [normocephalic], [symmetric] Eyes: [EOMI], [no lid lag], [anicteric sclera] Mouth: [no lip lesion], [mucus membranes moist] Cardiovascular: [S1S2 irregular], [no murmur], [positive posterior tibial pulse bilateral], Lungs: [Scattered wheezing bilateral], [no rhonchi, no rales] , [no accessory muscle use] Abdominal: [soft], [ nontender to palpation], [no guarding], [no appreciable organomegaly] Ext: [no gross muscle atrophy], [no edema], [no contractures] Neuro: [no focal neuro deficits] Psych: [Alert], [oriented], [appropriate affect] - Labs CBC & Chem 7: 01/21/20 06:42 01/21/20 06:42 Labs: Abnormal Lab Results - Last 24 Hours (Table) 01/23/20 Range/Units 06:49 PT 21.5 H (9.0-12.0) sec INR 2.2 H (<1.2) Microbiology - Last 24 Hours (Table) 01/19/20 08:55 Blood Culture - Preliminary Blood No Growth after 72 hours Assessment and Plan Assessment: Acute hypoxic respiratory failure secondary to Acute exacerbation of COPD - Bronchodilators ATC and prn - steroid - pulm hygiene - antibotics (azithromycin changed to doxycycline) - sputum culture Leukocytosis -Likely related to steroid use no signs of infection Hyponatremia, chronic -Sodium 130 slight improvement -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 - flecainide -Started on diltiazem by mouth, increased - tele - pharmacy to dose coumadin Ascending aortic aneurysm - outpatient follow-up with Dr. Vanegas Lower extremity edema - echo shows EF 60-65% with mild concentric LVH - lasix - follow daily weights Left lung mass - know and being followed by Pulm as outpatient - had CT/PET Cachexia - consult dietitian - supplements SVT resolved Lactic acid, resolved [Patient admitted for COPD exacerbation. Slight improvement. He is pending clinical improvement. Discussed with Pulmonology. Likely DC in 1-2 days.]
--- NOTE | 2020-01-23 13:13 | P.PN ---
Subjective Progress Note Date: 01/23/20 Principal diagnosis: Acute COPD exacerbation 84-year-old male patient known to have advanced COPD with an FEV1 of 36% of predicted based on a previous PFT that was done back in 2016. He is followed up in our office on of the care of Dr. Zapata. He has been on Advair and has a ne bulizer at home which she uses around the clock as needed. He also smokes cigarettes. He was woken up to recently. Over the past 2 weeks, he was having dyspnea cough chest congestion and chest tightness and wheezing. No chest pain. He also has an enlarging left lower lobe mass which is quite suspicious for lung cancer. Nevertheless, no biopsies have been done as the patient's overall pulmonary status has been extremely poor. The patient's PET scan done on 12/21/2019 showed increasing mass in the left lower lobe with an SUV being in the indeterminate inflammatory stages. There were also couple of supple indeterminate signal changes in the mediastinum. The patient also had an ascending aortic aneurysm measuring 4.8 cm in size. In the ED, the patient was given bronchodilators and steroids. The patient was given BiPAP which she was unable to tolerate. He was taken off the BiPAP and he was moved to the intensive care unit. I saw immediately after he arrived in. He was a bit an xious. He was having some limited the breathing. He was acutely bronchospastic and wheezy. No hemoptysis. No pleurisy. No swelling lower extremities. Seems to be quite anxious especially with his ongoing shortness of breath. Patient was reevaluated today on 01/20/20, remains in the ICU, his pulmonary status remains very marginal at best. Continues to have intermittent episodes of cough wheezing and shortness of breath. Patient is noted to be dyspneic at rest. Patient is maximized on his bronchodilators. And he is also on antibiotics empirically I switch him to doxycycline today. He is off Cardizem. And patient is known to have severe COPD with FEV1 of 56% at best, and he is also known to have history of left lung mass, highly suspicious for bronchogenic carcinoma, however the patient is noted but not a good candidate for any intervention at this time. WBC count is 15.6 hemoglobin is 13.7 INR is 1.7 in excellent are normal renal profile is normal Reevaluated today on 01/21/20, patient remains in the ICU, he is on 2 L nasal cannula, O2 saturations 93%, patient is a bit anxious, however he seems to be improving compared to how he felt when he first came in. Remains in and out of atrial fibrillation, and his Cardizem was increased to 60 mg by mouth 3 times a day. Xanax was added today because of his anxiety. His IV fluids remains at KVO. Chest x-ray is basically about the same, no acute process is noted. Continues to have left lower lobe mass. I plan to transfer the patient out of the ICU today to a monitor bed on [facility] if a bed is available. Labs were r deirdreiewed his INR is therapeutic WBC count is 16.4 lites are normal renal profile is normal. Patient was reevaluated today on 01/22/20, remains in the ICU, patient is presently on overflow from [facility]. Patient is about the same, get short of breath with any activity, he is on 2 L nasal cannula, still complains of shortness of breath with any exertion. No cough no fever no chills no hemoptysis no chest pain. INR is 1.9 today. Otherwise no labs Patient was reevaluated today on 01/19/20, remains as overflow in the ICU, patient is feeling much better today, breathing a lot easier. Less cough and less wheezing less shortness of breath. Patient is on 1.5 L nasal cannula, O2 saturations 97%. IV fluids at KVO, patient converted to normal sinus rhythm overnight, and he is presently in sinus rhythm rate of 95 per minute. Hence I plan to transfer the patient to a regular medical floor today, and possibly discharge the patient home in the next 24 hours. His INR today is therapeutic at 2.2. Objective - Vital Signs Vital signs: Vital Signs Temp 97.7 F 01/23/20 07:00 Pulse 81 01/23/20 11:43 Resp 25 H 01/23/20 07:00 BP 157/100 01/23/20 07:00 Pulse Ox 94 L 01/23/20 07:00 Intake & Output 01/22/20 01/23/20 01/23/20 18:59 06:59 18:59 Intake Total 550 290 Output Total 1100 600 550 Balance -550 -310 -550 Weight 63.8 kg Intake: IV 100 140 Sodium Chloride 0.9% 1, 100 140 000 ml @ 10 mls/hr IV . Q24H [facility] Rx#:[id number] Oral 450 150 Output: Urine 1100 600 550 Other: Voiding Method Urinal Urinal Urinal - Exam Gen. Revealed 84-year-old white male, pleasant, in no distress, seems to be less anxious today. Head exam : Atraumatic, normocephalic. EENT: PERRLA, EOMI, no icterus. Neck was supple and without jugular venous distension, thyromegaly, Lungs symmetrical chest expansion, diminished breath sound bilaterally no rhonchi and no wheezes. Cardiac exam regular rate and rhythm, normal S1 and S2, no S3 gallop, 2/6 systolic murmur thought the precordium. Abdominal exam : Soft, nontender, no megaly, no rebound, no guarding. Examination of the extremities revealed no clubbing edema or cyanosis. Examination of the skin revealed no evidence of significant rashes, suspicious appearing nevi or other concerning lesions. Neurologic: Alert oriented 3, no gross focal deficits. Psychiatric: Normal mood affect and normal mental status examination. 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 History of ascending aortic aneurysm, 4.8 cm in size. Subtherapeutic on INR. Tobacco dependence syndrome. Advanced COPD, FEV1 of 36% at best. Generalized anxiety disorder Recommendation: Continue Xanax at 0.25 mg 3 times a day when necessary. Continue present course of bronchodilators including DuoNeb Continue Pulmicort and Perforomist. Continue Solu-Medrol. Continue doxycycline Continue cardiac meds, patient is presently in sinus rhythm. Transfer patient to a regular medical floor with remote telemetry. Consider discharge planning in the next 24 hours Overall long-term prognosis is extremely poor and guarded Time with Patient: Less than 30
[2020-01-23 13:44] VITALS: BMI 19.1
[2020-01-23] MEDS: DILTIAZEM ORAL 60 MG TAB PO SCH ×2 (17:42→21:41)
[2020-01-23] MEDS ORDERED: WARFARIN 5 MG TAB PO ONE (18:00)
[2020-01-23] MEDS: SODIUM CHLORIDE 0.9% 1,000 ML IV SCH (21:41)
[2020-01-24] MEDS: HYDROcodone/APAP 5-325MG 1 EACH TAB PO PRN (00:51)
[2020-01-24 01:23] VITALS: RESP 18
[2020-01-24] MEDS: methylPREDNISolone SOD SUCCI 125 MG/2 ML VIAL IV SCH (05:47)
[2020-01-24 07:33] LABS: Basophils % (A) 0 %; Eosinophils % (A) 0 %; HCT 43.8 % (39.0-53.0); HGB 13.8 gm/dL (13.0-17.5); Lymphocytes # (A) 0.2 k/uL (1.0-4.8); Lymphocytes % (A) 1 %; MCH 29.3 pg (25.0-35.0); MCHC 31.6 g/dL (31.0-37.0); MCV 92.8 fL (80.0-100.0); Mean Platelet Volume 7.6; Monocytes # (A) 0.8 k/uL (0-1.0); Monocytes % (A) 6 %; Neutrophils # (A) 12.2 k/uL (1.3-7.7); Neutrophils % (A) 92 %; Platelet Count 219 k/uL (150-450); RBC 4.71 m/uL (4.30-5.90); RDW 13.7 % (11.5-15.5); WBC 13.2 k/uL (3.8-10.6)
[2020-01-24 07:54] VITALS: BP 160/96; TEMP 97.6
[2020-01-24] MEDS: FLECAINIDE 50 MG TAB PO SCH (08:14)
[2020-01-24] MEDS: DILTIAZEM ORAL 60 MG TAB PO SCH (08:14)
[2020-01-24] MEDS: DOXYCYCLINE 100 MG CAP PO SCH (08:14)
[2020-01-24] MEDS: guaiFENesin 600 MG TABLET.ER PO SCH (08:15)
[2020-01-24] MEDS: FUROSEMIDE 40 MG TAB PO SCH (08:15)
[2020-01-24] MEDS: IPRATROPIUM-ALBUTEROL 3 ML NEB INHALATION SCH ×2 (08:31→11:22)
[2020-01-24] MEDS: FORMOTEROL FUMARATE 20 MCG/2 ML NEBU INHALATION SCH ×2 (08:32→08:36)
[2020-01-24] MEDS: BUDESONIDE 0.5 MG/2 ML NEBU INHALATION SCH (08:32)
[2020-01-24 08:55] LABS: Prothrombin Time 29.4 sec (9.0-12.0)
[2020-01-24 11:24] VITALS: PULSE 82
[2020-01-24 12:12] LABS: African American GFR (CKD) 91.2 (60.0-200.0); Anion Gap 9.7 mmol/L (4.00-12.00); BUN/Creat Ratio 56.67 Ratio (12.00-20.00); Calcium 8.3 mg/dL (8.7-10.3); Carbon Dioxide 31.3 mmol/L (21.6-31.8); Non-African American GFR(CKD) 78.7 (60.0-200.0); Potassium 4.1 mmol/L (3.5-5.5)
--- NOTE | 2020-01-24 12:25 | P.PN ---
Subjective Progress Note Date: 01/24/20 Principal diagnosis: Acute exacerbation of chronic obstructive pulmonary disease 84-year-old male patient known to have advanced COPD with an FEV1 of 36% of predicted based on a previous PFT that was done back in 2016. He is followed up in our office on of the care of Dr. Zapata. He has been on Advair and has a nebulizer at home which she uses around the clock as needed. He also smokes cigarettes. He was woken up to recently. Over the past 2 weeks, he was having dyspnea cough chest congestion and chest tightness and wheezing. No chest pain. He also has an enlarging left lower lobe mass which is quite suspicious for lung cancer. Nevertheless, no biopsies have been done as the patient's overall pulmonary status has been extremely poor. The patient's PET scan done on 12/21/2019 showed increasing mass in the left lower lobe with an SUV being in the indeterminate inflammatory stages. There were also couple of supple indeterminate signal changes in the mediastinum. The patient also had an ascending aortic aneurysm measuring 4.8 cm in size. In the ED, the patient was given bronchodilators and steroids. The patient was given BiPAP which she was unable to tolerate. He was taken off the BiPAP and he was moved to the intensive care unit. I saw immediately after he arrived in. He was a bit anxious. He was having some limited the breathing. He was acutely bronchospastic and wheezy. No hemoptysis. No pleurisy. No swelling lower extremities. Seems to be quite anxious especially with his ongoing shortness of breath. Patient was reevaluated today on 01/20/20, remains in the ICU, his pulmonary status remains very marginal at best. Continues to have intermittent episodes of cough wheezing and shortness of breath. Patient is noted to be dyspneic at rest. Patient is maximized on his bronchodilators. And he is also on antibiotics empirically I switch him to doxycycline today. He is off Cardizem. And patient is known to have severe COPD with FEV1 of 56% at best, and he is also known to have history of left lung mass, highly suspicious for bronchogenic carcinoma, however the patient is noted but not a good candidate for any intervention at this time. WBC count is 15.6 hemoglobin is 13.7 INR is 1.7 in excellent are normal renal profile is normal Reevaluated today on 01/21/20, patient remains in the ICU, he is on 2 L nasal cannula, O2 saturations 93%, patient is a bit anxious, however he seems to be improving compared to how he felt when he first came in. Remains in and out of atrial fibrillation, and his Cardizem was increased to 60 mg by mouth 3 times a day. Xanax was added today because of his anxiety. His IV fluids remains at KVO. Chest x-ray is basically about the same, no acute process is noted. Continues to have left lower lobe mass. I plan to transfer the patient [facility] Labs were reviewed his INR is therapeutic WBC count is 16.4 lites are normal renal profile is normal. Patient was reevaluated today on 01/22/20, remains in the ICU, patient is presently on overflow from [employer] Patient is about the same, get short of breath with any activity, he is on 2 L nasal cannula, still complains of shortness of breath with any exertion. No cough no fever no chills no hemoptysis no chest pain. INR is 1.9 today. Otherwise no labs Patient was reevaluated today on 01/19/20, remains as overflow in the ICU, patient is feeling much better today, breathing a lot easier. Less cough and less wheezing less shortness of breath. Patient is on 1.5 L nasal cannula, O2 saturations 97%. IV fluids at KVO, patient converted to normal sinus rhythm overnight, and he is presently in sinus rhythm rate of 95 per minute. Hence I plan to transfer the patient to a regular medical floor today, and possibly discharge the patient home in the next 24 hours. His INR today is therapeutic at 2.2. The patient is seen today 01/24/2020 in follow-up on the regular medical floor. He is sitting up at the bedside. Awake and alert in no acute distress. His maricarmen athing is nearly back to his baseline. He'll most likely need home oxygen. Blood cultures reveal no growth. Sputum culture reveals no growth. White count 13.2. Hemoglobin 13.8. INR 3.0. Sodium 134. Potassium 4.1. Creatinine 0.9. He is continued on DuoNeb inhalations, Pulmicort and Perforomist inhalations, IV Solu-Medrol. Anticoagulated with warfarin. Remains on oral diuretics. Objective - Vital Signs Vital signs: Vital Signs Temp 97.6 F 01/24/20 07:00 Pulse 82 01/24/20 11:34 Resp 18 01/24/20 07:00 BP 160/96 01/24/20 07:00 Pulse Ox 93 L 01/24/20 08:32 Intake & Output 01/23/20 01/24/20 01/24/20 18:59 06:59 18:59 Intake Total 30 Output Total 550 200 Balance -550 -170 Weight 63.8 kg Intake: Intake, IV Titration 30 Amount Sodium Chloride 0.9% 1, 30 000 ml @ 10 mls/hr IV . Q24H [facility] Rx#:[id number] Output: Urine 550 200 Other: Voiding Method Urinal Urinal # Voids 1 - Exam GENERAL EXAM: Alert, pleasant 84 of gentleman, on 2 L nasal cannula, active, comfortable in no apparent distress. HEAD: Normocephalic. EYES: Normal reaction of pupils, equal size. NOSE: Clear with pink turbinates. THROAT: Poor dentition. No erythema or exudates. NECK: No masses, no JVD. CHEST: No chest wall deformity. LUNGS: Equal air entry with no crackles, wheeze, rhonchi or dullness. Diminis hed CVS: S1 and S2 normal with no audible murmur, regular rhythm. ABDOMEN: No hepatosplenomegaly, normal bowel sounds, no guarding or rigidity. SPINE: No scoliosis or deformity SKIN: No rashes CENTRAL NERVOUS SYSTEM: No focal deficits, tone is normal in all 4 extremities. EXTREMITIES: There is no peripheral edema. No clubbing, no cyanosis. Peripheral pulses are intact. - Labs CBC & Chem 7: 01/24/20 06:30 01/24/20 06:34 Labs: Abnormal Lab Results - Last 24 Hours (Table) 01/24/20 01/24/20 01/24/20 Range/Units 06:30 06:34 06:34 WBC 13.2 H (3.8-10.6) k/uL Neutrophils # 12.2 H (1.3-7.7) k/uL Lymphocytes # 0.2 L (1.0-4.8) k/uL PT 29.4 H (9.0-12.0) sec INR 3.0 H (<1.2) Sodium 134 L (135-145) mmol/L Chloride 93 L (96-109) mmol/L BUN 51.0 H (9.0-27.0) mg/dL BUN/Creatinine Ratio 56.67 H (12.00-20.00) Ratio Glucose 125 H (70-110) mg/dL Calcium 8.3 L (8.7-10.3) mg/dL Microbiology - Last 24 Hours (Table) 01/19/20 08:55 Blood Culture - Preliminary Blood No Growth after 120 hours Assessment and Plan Assessment: Acute hypoxic respiratory failure secondary to an acute exacerbation of COPD Left lower lobe mass highly suspicious for bronchogenic carcinoma Chronic atrial fibrillation with RVR on presentation to the ER, anticoagulated with warfarin. History of ascending aortic aneurysm, 4.8 cm in size. Tobacco dependence syndrome. Advanced COPD, FEV1 of 36% at best. Generalized anxiety disorder Plan: The patient was seen and evaluated by Dr. Tena He is cleared for discharge from the pulmonary standpoint Continue DuoNeb inhalations, Symbicort, home oxygen Prednisone taper starting at 40 mg for 4 days Follow up with Dr. Zapata regarding left lower lobe mass Possible radiation treatments, not a surgical candidate I, the cosigning physician, performed a history & physical examination of the patient. Lungs sounds are clear, diminished. Maintaining good O2 saturations in the 90s on 2 L/m per nasal cannula. I discussed the assessment and plan of care with my nurse practitioner, Esther Palma. I attest to the above note as dictated by her.
--- NOTE | 2020-01-24 13:46 | P.DS ---
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 On arrival to the ER he was to With a respiratory rate of 20 associated with labored breathing with accessory muscle use and sternal retractions. Laboratory analysis showed sodium 132, lactic acid 2.1, troponin normal at 0.015. Chest x-ray showed no acute process but emphysema with a left basilar soft tissue density that is stable. He was started on bronchodilators and steroids. He had a trial of BiPAP therapy but did not tolerate it in the emergency department. He did have an episode of SVT that was brief and resolved spontaneously. Patient was subsequently admitted for acute exacerbation of COPD. He was started on bronchodilators scheduled and as needed for shortness of breath and wheezing. He was started on steroids. He was started on doxycycline for concerns of acute bronchitis. He was noted to have a leukocytosis which is likely related to steroid use. He was hyponatremic with a sodium of 130. 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 His sodium improved with fluid restriction to 134 at the time of discharge. Cardiology followed the patient regarding his A. fib. He did have an episode of A. fib with RVR and was started on diltiazem by mouth along with his home medication of flecainide. Coumadin was restarted to maintain INR between 2 and 3. Echocardiogram was obtained which showed EF 60-65% with moderate concentric LVH. Patient was known to have a left lung mass and was advised to follow-up with pulmonology in clinic. He was advised to follow-up with cardiothoracic surgery regarding his ascending aortic aneurysm. Patient was seen and examined. No acute events overnight. Patient reports improvement in his breathing. He denies any chest pain or palpitations. No nausea or vomiting. No fever or chills. Lower rock swelling greatly improved. General: [non toxic], [no distress], [appears at stated age] Derm: [warm], [dry] Head: [atraumatic], [normocephalic], [symmetric] Eyes: [EOMI], [no lid lag], [anicteric sclera] Mouth: [no lip lesion], [mucus membranes moist] Cardiovascular: [S1S2 irregular], [no murmur], [positive posterior tibial pulse bilateral], Lungs: [Decreased breath sounds bilateral], [no rhonchi, no rales] , [no accessory muscle use] Abdominal: [soft], [ nontender to palpation], [no guarding], [no appreciable organomegaly] Ext: [no gross muscle atrophy], [no edema], [no contractures] Neuro: [no focal neuro deficits] Psych: [Alert], [oriented], [appropriate affect] Acute hypoxic respiratory failure secondary to Acute exacerbation of COPD - Bronchodilators ATC and prn -Medrol Dosepak for discharge - pulm hygiene -Completed course of doxycycline - sputum culture Leukocytosis -Likely related to steroid use no signs of infection Hyponatremia -Sodium 130 slight improvement -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 - flecainide -Started on diltiazem by mouth - tele - pharmacy to dose coumadin Ascending aortic aneurysm - outpatient follow-up with Dr. Vanegas Lower extremity edema - echo shows EF 60-65% with mild concentric LVH - lasix - follow daily weights Left lung mass - know and being followed by Pulm as outpatinet - had CT/PET Cachexia - consult dietitian - supplements SVT resolved Lactic acid, resolved [Patient admitted for COPD exacerbation. Cleared by pulmonology. Anticipate DC home today. This complex discharge took about 45 minutes to complete.] Pertinent Studies: Chest x-ray, echocardiogram Patient Condition at Discharge: Stable Plan - Discharge Summary Discharge Rx Participant: Yes New Discharge Prescriptions: New Diltiazem Oral [Cardizem*] 60 mg PO TID #90 tab Furosemide [Lasix] 40 mg PO DAILY #30 tab methylPREDNISolone Dose Pack [Medrol Dose Pack] 4 mg PO DIRECTED #21 package guaiFENesin [Mucinex] 600 mg PO Q12HR tablet.er ALPRAZolam [Xanax] 0.25 mg PO TID PRN #9 tab PRN Reason: Anxiety Continue Warfarin [Coumadin] 5 mg PO DAILY diphenhydrAMINE [Benadryl] 25 mg PO HS PRN PRN Reason: Insomnia Triamcinolone 0.5% Cream [Kenalog 0.5% Cream] 1 applic TOPICAL BID Flecainide [Tambocor] 50 mg PO Q12HR Albuterol Sulfate [Proair Hfa] 2 puff INHALATION RT-Q6H PRN PRN Reason: Shortness Of Breath Niacinamide 500 mg PO DAILY Ipratropium-Albuterol Nebulize [Duoneb 0.5 mg-3 mg/3 ml Soln] 3 ml INHALATION RT-BID #60 neb Discharge Medication List Albuterol Sulfate [Proair Hfa] 2 puff INHALATION RT-Q6H PRN 09/27/17 [History] Flecainide [Tambocor] 50 mg PO Q12HR 09/27/17 [History] Triamcinolone 0.5% Cream [Kenalog 0.5% Cream] 1 applic TOPICAL BID 09/27/17 [History] Warfarin [Coumadin] 5 mg PO DAILY 09/27/17 [History] diphenhydrAMINE [Benadryl] 25 mg PO HS PRN 09/27/17 [History] Niacinamide 500 mg PO DAILY 01/19/20 [History] ALPRAZolam [Xanax] 0.25 mg PO TID PRN #9 tab 01/24/20 [Rx] Diltiazem Oral [Cardizem*] 60 mg PO TID #90 tab 01/24/20 [Rx] Furosemide [Lasix] 40 mg PO DAILY #30 tab 01/24/20 [Rx] Ipratropium-Albuterol Nebulize [Duoneb 0.5 mg-3 mg/3 ml Soln] 3 ml INHALATION RT-BID #60 neb 01/24/20 [Rx] guaiFENesin [Mucinex] 600 mg PO Q12HR tablet.er 01/24/20 [Rx] methylPREDNISolone Dose Pack [Medrol Dose Pack] 4 mg PO DIRECTED #21 package 01/24/20 [Rx] Follow up Appointment(s)/Referral(s): [facility],Equipment [NON-STAFF] - As Needed John Zapata DO [Doctor of Osteopathic Medicine] - 02/07/20 9:30 am [facility], [NON-STAFF] - Anamaria Faria MD [Primary Care Provider] - 01/30/20 1:20 pm () Patient Instructions/Handouts: Using Oxygen at Home (DC), COPD (Chronic Obstructive Pulmonary Disease) (DC) Activity/Diet/Wound Care/Special Instructions: Patient does not have prescription coverage and will need generic meds. patient will require home O2 at 2L N/c 21/11 due to COPD. Follow-up PCP within 3 days of discharge. Follow up with pulmonology within 1 week of discharge. He will need further workup of her lung mass with pulmonology. Take all medications as advised. Come back to the ED or call 911 for worsening chest pain, shortness breath, palpitations or dizziness. Discharge Disposition: HOME SELF-CARE
[2020-01-24] MEDS ORDERED: WARFARIN 2 MG TAB PO ONE (18:00)
[2020-01-24] MEDS ORDERED: SYMBICORT 160-4.5 MCG INHALER INHALATION SCH (20:00)
[2020-01-25] MEDS ORDERED: predniSONE 20 MG TAB PO SCH (09:00)
--- NOTE | 2020-01-26 09:01 | CDI ---
Documentation Clarification Form Date: 01/26/20 From: Salome Kim Phone: If you have a question about this query, please contact Sachi Diane, Shotweld Operator at [phone] between 8am and 5pm. Admit Date: 01/19/20 Discharge Date:01/24/20 Patient Name: Ge Foster Visit Number: [id number] ATTENTION: The Clinical Documentation Specialists (CDI) and [facility] Coding Staff appreciate your assistance in clarifying documentation. Please respond to the clarification below the line at the bottom and electronically sign. The CDI & [facility] Coding staff will review the response and follow-up if needed. Please note: Queries are made part of the Legal Health Record. If you have any questions, please contact the author of this message via ITS. Dear Dr. 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 Underweight Mild Protein-Calorie Malnutrition Moderate Protein-Calorie Malnutrition Severed Protein-Calorie Malnutrition Malnutrition unspecified Other, please specify Unable to determine moderate ___ MTDD
== END 2020-01-24 13:55 | disposition home health service (06) | DRG 190 ==
LOC: EC 08:08 → 2SICU 10:44 → 4SSUR 01-23 13:12
PROVIDERS: ADMIT Internal Medicine; ATTEND Internal Medicine
DX: J44.1 Chronic obstructive pulmonary disease with (acute) exacerbation (principal); J96.21 Acute and chronic respiratory failure with hypoxia; E22.2 Syndrome of inappropriate secretion of antidiuretic hormone; I47.1 Supraventricular tachycardia; I48.92 Unspecified atrial flutter; C34.32 Malignant neoplasm of lower lobe, left bronchus or lung; E44.0 Moderate protein-calorie malnutrition; Z68.1 Body mass index [BMI] 19.9 or less, adult; R64 Cachexia; I71.2 Thoracic aortic aneurysm, without rupture; E86.0 Dehydration; I48.0 Paroxysmal atrial fibrillation; D72.829 Elevated white blood cell count, unspecified; F17.210 Nicotine dependence, cigarettes, uncomplicated; F41.1 Generalized anxiety disorder; T38.0X5A Adverse effect of glucocorticoids and synthetic analogues, initial encounter; R79.1 Abnormal coagulation profile; Z79.01 Long term (current) use of anticoagulants; Z79.899 Other long term (current) drug therapy; Z79.52 Long term (current) use of systemic steroids; Z98.890 Other specified postprocedural states; Z87.11 Personal history of peptic ulcer disease; Z87.19 Personal history of other diseases of the digestive system; Z87.898 Personal history of other specified conditions; Z98.42 Cataract extraction status, left eye; Z98.41 Cataract extraction status, right eye; Z71.6 Tobacco abuse counseling; Z82.49 Family history of ischemic heart disease and other diseases of the circulatory system; Z80.0 Family history of malignant neoplasm of digestive organs
CPT/HCPCS: 36415; 71045; 80048; 80053; 83036; 83605; 83880; 84484; 85025; 85027; 85610; 85730; 87040; 87070; 87205; 93005; 93306; 94640; 94660; 94760; 96374; 99291

== ENCOUNTER → 2020-04-06 | Outpatient (CLI) | payer MEDICARE ==
[2020-04-06 13:23] LABS: Basophils % (A) 1 %; Eosinophils # (A) 0.1 k/uL (0-0.7); Eosinophils % (A) 2 %; HCT 38.2 % (39.0-53.0); HGB 12.4 gm/dL (13.0-17.5); Hypochromasia Slight; Lymphocytes # (A) 0.6 k/uL (1.0-4.8); Lymphocytes % (A) 8 %; MCH 30.1 pg (25.0-35.0); MCHC 32.4 g/dL (31.0-37.0); MCV 93.1 fL (80.0-100.0); Mean Platelet Volume 7.1; Monocytes # (A) 0.3 k/uL (0-1.0); Monocytes % (A) 4 %; Neutrophils # (A) 6.3 k/uL (1.3-7.7); Neutrophils % (A) 85 %; Platelet Count 324 k/uL (150-450); RDW 13.1 % (11.5-15.5); WBC 7.4 k/uL (3.8-10.6)
[2020-04-06 13:29] LABS: African American GFR (CKD) >90 (>60 ml/min/1.73 sqM); Blood Urea Nitrogen 15 mg/dL (9-20); Non-African American GFR(CKD) 83 (>60 ml/min/1.73 sqM)
--- NOTE | 2020-04-06 15:53 | CT ---
EXAMINATION TYPE: CT chest w con DATE OF EXAM: 04/06/2020 COMPARISON: 12/12/2019 and 03/01/2019 HISTORY: 84-year-old male R91.1 Lung nodule. TECHNIQUE: Contiguous axial scanning of the chest after the administration of 100 mL of Isovue M300. Coronal/sagittal reconstructions performed. CT DLP: 254mGycm. Automatic exposure control utilized for a dose reduction. FINDINGS: Heart normal size without pericardial effusion. Ascending aortic aneurysm stable at 4.8 cm. Moderate arthroscopic cartilage calcifications. Conventio nal arch vessel branching anatomy. Additional aneurysm upper descending thoracic aorta at 3.9 cm, unc hanged. Mid descending thoracic aorta aneurysmal at 3.3 cm and 3.0 cm at the thoracoabdominal junctio n. Precarinal lymph node at 8 mm is unchanged. No thoracic lymphadenopathy by CT size criteria. Moderate centrilobular emphysema. Biapical pleural parenchymal scarring. New patchy peripheral opacit y anterior right mid and lower lung and more extensive patchy peripheral bibasilar opacities. The mas slike opacity at the peripheral basilar left lower lobe has improved. No pleural effusion. Surgical clips at the GE junction. Visualized upper abdomen otherwise shows no gross abnormality. Bones: Superior endplate fracture of T5 is new from 12/12/2019. No retropulsion into the spinal canal. Minimal 15% overall height loss. Possible early superior endplate fracture of T6 as well also new wi thout any height loss. Superior endplate deformities of T7, T8, T12, L1 are unchanged. Mild retropulsion into the ventral sp inal canal at L1 is unchanged. IMPRESSION: 1. COPD with moderate emphysema. 2. The previous left basilar masslike opacity has largely resolved. 3. However, there are new multifocal patchy peripheral infiltrates. On the right, these infiltrates e xtend up to the anterior midlung. Correlate for infectious or aspiration pneumonia, interstitial pneu monitis such as POLITICAL GEOGRAPHER, or even atypical pneumonia such as COVID pneumonitis. 4. Aneurysmal thoracic aorta not significantly changed (ascending 4.8 cm, upper descending 3.9 cm, lo wer descending 3.0 cm). 5. Multiple vertebral body fractures. Superior endplate fractures of T7, T8, T12, and L1 are chronic. However, there are new superior endplate fractures of T5 and T6 (as compared to 12/12/2019). The mild retropulsion at the L1 level is unchanged.
== END | disposition home or self-care (01) ==
LOC: RADCTMAIN 12:27
PROVIDERS: ATTEND Internal Medicine Critical Care Medicine
DX: J43.9 Emphysema, unspecified (principal); R91.8 Other nonspecific abnormal finding of lung field; I71.2 Thoracic aortic aneurysm, without rupture
CPT/HCPCS: 82565; 84520; 85025; 71260; 36415; Q9967

== ENCOUNTER 2020-05-21 13:24 | Observation (INO) | payer MEDICARE ==
[2020-05-21] MEDS ORDERED: RX INFO: IV CONTRAST WAS GIVEN 1 EACH MISC MISCELLANE PRN (14:03)
[2020-05-21 14:13] LABS: Glucose,Whole Blood 84 mg/dL (75-99)
--- NOTE | 2020-05-21 14:15 | ED ---
Altered Mental Status HPI - General Source: patient, EMS Mode of arrival: EMS <Aaliyah Valdivia - Last Filed: 05/21/20 15:22> <MineshJohn - Last Filed: 05/21/20 16:56> - General Chief Complaint: Altered Mental Status Stated Complaint: Confusion - History of Present Illness Initial Comments: Patient is an 84-year-old male with past medical history of ascending aortic aneurysm and abdominal aortic aneurysm who presents emergency department after he had an episode of altered mental status. is at bedside and helps provide the history. Reports that the patient was sitting at the kitchen table when he had an episode of confusion. The patient was disoriented and didn't know where he was at. There was no slurred speech. No unilateral numbness or weakness. Patient did not have any chest pain. reports that the patient appeared short of breath. EMS was called. Symptoms lasted for approximately 30 minutes. When EMS arrived the patient was back to his normal baseline. He denies previous history of CVA. He is on Coumadin for a history of A. fib. Patient denies history of similar. No other alleviating, precipitating or modifying factors (Aaliyah Valdivia) - Related Data Home Medications Medication Instructions Recorded Confirmed Albuterol Sulfate [Proair Hfa] 2 puff INHALATION RT-Q6H PRN 09/27/17 05/21/20 Flecainide [Tambocor] 50 mg PO Q12HR 09/27/17 05/21/20 Triamcinolone 0.5% Cream [Kenalog 1 applic TOPICAL BID 09/27/17 05/21/20 0.5% Cream] Warfarin [Coumadin] 5 mg PO TUTHSA 09/27/17 05/21/20 diphenhydrAMINE [Benadryl] 25 mg PO Q8H PRN 09/27/17 05/21/20 Niacinamide 500 mg PO DAILY 01/19/20 05/21/20 Acetaminophen [Tylenol] 500 mg PO Q4-6H PRN 05/21/20 05/21/20 Multivitamins, Thera [Multivitamin 1 tab PO DAILY 05/21/20 05/21/20 (formulary)] Tamsulosin HCl [Flomax] 0.4 mg PO DAILY 05/21/20 05/21/20 Torsemide [Demadex] 20 mg PO DAILY 05/21/20 05/21/20 Warfarin Sodium 2.5 mg PO SUMOWEFR 05/21/20 05/21/20 Previous Rx's Medication Instructions Recorded Ipratropium-Albuterol Nebulize 3 ml INHALATION RT-BID #60 neb 01/24/20 [Duoneb 0.5 mg-3 mg/3 ml Soln] Allergies Allergy/AdvReac Type Severity Reaction Status Date / Time No Known Allergies Allergy Verified 05/21/20 15:01 Review of Systems ROS Other: All systems not noted in ROS Statement are negative. <Aaliyah Valdivia - Last Filed: 05/21/20 15:22> ROS Other: All systems not noted in ROS Statement are negative. <John Edge - Last Filed: 05/21/20 16:56> ROS Statement: Those systems with pertinent positive or pertinent negative responses have been documented in the HPI. Past Medical History Past Medical History: Atrial Fibrillation, COPD, Respiratory Disorder Additional Past Medical History / Comment(s): Ascending thoracic aortic aneurysm measuring 4.8 cm in size, advanced COPD, left lower lobe mass measuring 3.4 x 3. 3 cm in size History of Any Multi-Drug Resistant Organisms: None Reported Past Surgical History: Adenoidectomy, Hernia Repair, Tonsillectomy Additional Past Surgical History / Comment(s): ULCER REPAIR- 35 YEARS AGO, cataract bilateral Past Anesthesia/Blood Transfusion Reactions: No Reported Reaction Past Psychological History: No Psychological Hx Reported Smoking Status: Current every day smoker Past Alcohol Use History: Occasional Past Drug Use History: None Reported - Past Family History Mother Family Medical History: Cancer Additional Family Medical History / Comment(s): from [place] (stomach) Father Family Medical History: Myocardial Infarction ([place]) Additional Family Medical History / Comment(s): passes away from aneurysm <Aaliyah Valdivia - Last Filed: 05/21/20 15:22> General Exam General appearance: alert, in no apparent distress Head exam: Present: atraumatic, normocephalic, normal inspection Eye exam: Present: normal appearance, PERRL, EOMI. Absent: scleral icterus, conjunctival injection, periorbital swelling ENT exam: Present: normal exam, mucous membranes moist Neck exam: Present: normal inspection. Absent: tenderness, meningismus, lymphadenopathy Respiratory exam: Present: normal lung sounds bilaterally. Absent: respiratory distress, wheezes, rales, rhonchi, stridor Cardiovascular Exam: Present: regular rate, normal rhythm, normal heart sounds. Absent: systolic murmur, diastolic murmur, rubs, gallop, clicks GI/Abdominal exam: Present: soft, normal bowel sounds. Absent: distended, tenderness, guarding, rebound, rigid Extremities exam: Present: normal inspection, full ROM, normal capillary refill. Absent: tenderness, pedal edema, joint swelling, calf tenderness Back exam: Present: normal inspection Neurological exam: Present: alert, oriented X3, CN II-XII intact Psychiatric exam: Present: normal affect, normal mood Skin exam: Present: warm, dry, intact, normal color. Absent: rash <Aaliyah Valdivia - Last Filed: 05/21/20 15:22> Course <John Edge - Last Filed: 05/21/20 16:56> Vital Signs 05/21/20 05/21/20 13:29 16:23 Temperature 98.1 F 98.1 F Pulse Rate 64 102 H Respiratory 18 18 Rate Blood Pressure 162/88 131/89 O2 Sat by Pulse 100 98 Oximetry - Reevaluation(s) Reevaluation #1: 05/21/20 16:54 The patient was endorsed me by Dr. Valdivia at our shift change pending the results the CAT scans. There were negative for acute findings. Findings with the patient and family patient is awake alert oriented 3. Have an episode of confusion lasting approximately 8 minutes he will be admitted I did discuss case with Dr. Tay. Patient is did state that he had just started a new blood pressure medication approximately 2 weeks ago. He has no prior history of hypoglycemia or diabetic (John Edge) Medical Decision Making - Lab Data Result diagrams: 05/21/20 14:05 05/21/20 14:05 <Aaliyah Valdivia - Last Filed: 05/21/20 15:22> - Lab Data Result diagrams: 05/21/20 14:05 05/21/20 14:05 - Radiology Data Radiology results: report reviewed (I did review the imaging and report no evidence of acute progression of known disease. Please see complete report), image reviewed <John Edge - Last Filed: 05/21/20 16:56> - Medical Decision Making On arrival patient was placed into room 8. A thorough history and physical exam was performed. Patient is back to his baseline without any confusion or neurologic deficits at this time. Laboratory studies were conducted and the patient was sent for CT of his chest as well as CT of his brain and CT angiography of his head and neck. That raises are reviewed and demonstrate a INR of 2. Glucose is 61. Amp of dextrose is ordered. Patient went over for his imaging. The patient's case will be signed out to Dr. Edge ([facility]) - Lab Data Lab Results 05/21/20 05/21/20 05/21/20 Range/Units 14:05 14:05 14:05 WBC 11.1 H (3.8-10.6) k/uL RBC 4.38 (4.30-5.90) m/uL Hgb 12.2 L (13.0-17.5) gm/dL Hct 39.3 (39.0-53.0) % MCV 89.7 (80.0-100.0) fL MCH 27.9 (25.0-35.0) pg MCHC 31.1 (31.0-37.0) g/dL RDW 13.6 (11.5-15.5) % Plt Count 244 (150-450) k/uL MPV 7.1 Neutrophils % 85 % Lymphocytes % 6 % Monocytes % 5 % Eosinophils % 3 % Basophils % 0 % Neutrophils # 9.4 H (1.3-7.7) k/uL Lymphocytes # 0.7 L (1.0-4.8) k/uL Monocytes # 0.6 (0-1.0) k/uL Eosinophils # 0.3 (0-0.7) k/uL Basophils # 0.0 (0-0.2) k/uL PT 19.9 H (9.0-12.0) sec INR 2.0 H (<1.2) APTT 29.7 (22.0-30.0) sec Sodium (137-145) mmol/L Potassium (3.5-5.1) mmol/L Chloride (98-107) mmol/L Carbon Dioxide (22-30) mmol/L Anion Gap mmol/L BUN (9-20) mg/dL Creatinine (0.66-1.25) mg/dL Est GFR (CKD-EPI)AfAm (>60 ml/min/1.73 sqM) Est GFR (CKD-EPI)NonAf (>60 ml/min/1.73 sqM) Glucose (74-99) mg/dL POC Glucose (mg/dL) (75-99) mg/dL POC Glu Shotblast Operator ID Calcium (8.4-10.2) mg/dL Total Bilirubin (0.2-1.3) mg/dL AST (17-59) U/L ALT (4-49) U/L Alkaline Phosphatase (38-126) U/L Creatine Kinase (55-170) U/L Troponin I (0.000-0.034) ng/mL Total Protein (6.3-8.2) g/dL Albumin (3.5-5.0) g/dL Urine Color Yellow Urine Appearance Clear (Clear) Urine pH 6.5 (5.0-8.0) Ur Specific Manning 1.016 (1.001-1.035) Urine Protein Negative (Negative) Urine Glucose (UA) 2+ H (Negative) Urine Ketones Negative (Negative) Urine Blood Negative (Negative) Urine Nitrite Negative (Negative) Urine Bilirubin Negative (Negative) Urine Urobilinogen <2.0 (<2.0) mg/dL Ur Leukocyte Esterase Negative (Negative) 05/21/20 05/21/20 05/21/20 Range/Units 14:05 14:05 14:11 WBC (3.8-10.6) k/uL RBC (4.30-5.90) m/uL Hgb (13.0-17.5) gm/dL Hct (39.0-53.0) % MCV (80.0-100.0) fL MCH (25.0-35.0) pg MCHC (31.0-37.0) g/dL RDW (11.5-15.5) % Plt Count (150-450) k/uL MPV Neutrophils % % Lymphocytes % % Monocytes % % Eosinophils % % Basophils % % Neutrophils # (1.3-7.7) k/uL Lymphocytes # (1.0-4.8) k/uL Monocytes # (0-1.0) k/uL Eosinophils # (0-0.7) k/uL Basophils # (0-0.2) k/uL PT (9.0-12.0) sec INR (<1.2) APTT (22.0-30.0) sec Sodium 135 L (137-145) mmol/L Potassium 4.4 (3.5-5.1) mmol/L Chloride 100 (98-107) mmol/L Carbon Dioxide 33 H (22-30) mmol/L Anion Gap 2 mmol/L BUN 17 (9-20) mg/dL Creatinine 0.82 (0.66-1.25) mg/dL Est GFR (CKD-EPI)AfAm >90 (>60 ml/min/1.73 sqM) Est GFR (CKD-EPI)NonAf 82 (>60 ml/min/1.73 sqM) Glucose 61 L (74-99) mg/dL POC Glucose (mg/dL) 84 (75-99) mg/dL POC Glu Shotblast Operator ID Ambar Aguirre Calcium 8.5 (8.4-10.2) mg/dL Total Bilirubin 0.4 (0.2-1.3) mg/dL AST 34 (17-59) U/L ALT 18 (4-49) U/L Alkaline Phosphatase 138 H (38-126) U/L Creatine Kinase 115 (55-170) U/L Troponin I <0.012 (0.000-0.034) ng/mL Total Protein 6.5 (6.3-8.2) g/dL Albumin 3.6 (3.5-5.0) g/dL Urine Color Urine Appearance (Clear) Urine pH (5.0-8.0) Ur Specific Manning (1.001-1.035) Urine Protein (Negative) Urine Glucose (UA) (Negative) Urine Ketones (Negative) Urine Blood (Negative) Urine Nitrite (Negative) Urine Bilirubin (Negative) Urine Urobilinogen (<2.0) mg/dL Ur Leukocyte Esterase (Negative) - EKG Data EKG Comments: EKG demonstrates normal sinus rhythm with a ventricular rate of 66. VT interval 190. QRS 92. QTC of 457. No acute ST segment elevations or depressions (Aaliyah Valdivia) Disposition <Aaliyah Valdivia - Last Filed: 05/21/20 15:22> <John Edge - Last Filed: 05/21/20 16:56> Clinical Impression: Altered mental status, Transient ischemic attack Disposition: ADMITTED IP TO THIS HOSP Condition: Fair Referrals: Anamaria Faria MD [Primary Care Provider] - 1-2 days
[2020-05-21 14:17] LABS: Basophils % (A) 0 %; Eosinophils # (A) 0.3 k/uL (0-0.7); Eosinophils % (A) 3 %; HCT 39.3 % (39.0-53.0); HGB 12.2 gm/dL (13.0-17.5); Lymphocytes # (A) 0.7 k/uL (1.0-4.8); Lymphocytes % (A) 6 %; MCH 27.9 pg (25.0-35.0); MCHC 31.1 g/dL (31.0-37.0); MCV 89.7 fL (80.0-100.0); Mean Platelet Volume 7.1; Monocytes # (A) 0.6 k/uL (0-1.0); Monocytes % (A) 5 %; Neutrophils # (A) 9.4 k/uL (1.3-7.7); Neutrophils % (A) 85 %; Platelet Count 244 k/uL (150-450); RBC 4.38 m/uL (4.30-5.90); RDW 13.6 % (11.5-15.5); WBC 11.1 k/uL (3.8-10.6)
[2020-05-21 14:22] LABS: ALT 18 U/L (4-49); AST 34 U/L (17-59); African American GFR (CKD) >90 (>60 ml/min/1.73 sqM); Albumin 3.6 g/dL (3.5-5.0); Alkaline Phosphatase 138 U/L (38-126); Anion Gap 2 mmol/L; Blood Urea Nitrogen 17 mg/dL (9-20); Calcium 8.5 mg/dL (8.4-10.2); Carbon Dioxide 33 mmol/L (22-30); Chloride 100 mmol/L (98-107); Creatine Kinase 115 U/L (55-170); Glucose 61 mg/dL (74-99); Non-African American GFR(CKD) 82 (>60 ml/min/1.73 sqM); Potassium 4.4 mmol/L (3.5-5.1); Sodium 135 mmol/L (137-145); Total Bilirubin 0.4 mg/dL (0.2-1.3); Total Protein 6.5 g/dL (6.3-8.2)
[2020-05-21 14:26] LABS: Appearance,Urine Clear (Clear); Bilirubin,Urine Negative (Negative); Blood,Urine Negative (Negative); Color,Urine Yellow; Glucose,Urine (UA) 2+ (Negative); Ketones,Urine Negative (Negative); Leukocyte Esterase,Urine Negative (Negative); Nitrite,Urine Negative (Negative); PH, Urine 6.5 (5.0-8.0); Protein,Urine Negative (Negative); Specific Gravity,Urine 1.016 (1.001-1.035); Urobilinogen,Urine <2.0 mg/dL (<2.0)
[2020-05-21 14:45] LABS: Partial Thromboplastin Time 29.7 sec (22.0-30.0); Prothrombin Time 19.9 sec (9.0-12.0)
[2020-05-21] MEDS ORDERED: DEXTROSE 50% SYRINGE 50 ML IVP STA (15:11)
--- NOTE | 2020-05-21 15:30 | CT ---
EXAMINATION TYPE: CT brain wo con DATE OF EXAM: 05/21/2020 COMPARISON: 04/17/2019 HISTORY: 84-year-old male confusion, Altered mental status. TECHNIQUE: Examination was done in axial plane without intravenous contrast. Coronal and sagittal r econstructions performed. CT DLP: 1157.2 mGycm Automated exposure control for dose reduction was used. FINDINGS: There is no evidence of acute intracranial hemorrhage, acute ischemic changes, mass, mass-effect, or extra-axial fluid collection. There is no effacement of cerebral sulci or basal subarachnoid cister ns. There is no hydrocephalus. There is no midline shift. Crespo-white matter distinction is preserv ed. Atherosclerotic calcifications within the carotid siphons. Benign basal ganglionic calcifications. Mi ld generalized cerebral atrophy. 1.2 cm polyp or mucosal retention cyst within the right maxillary sinus. Mastoid air cells well pneum atized. Leftward nasal septal deviation. Orbits and globes are intact. IMPRESSION: Mild generalized atrophy. No acute intracranial abnormality seen.
--- NOTE | 2020-05-21 15:43 | CT ---
EXAMINATION TYPE: CT chest w con DATE OF EXAM: 05/21/2020 COMPARISON: 04/06/2020 HISTORY: 84-year-old male confusion, Aortic aneurysm. TECHNIQUE: Contiguous axial scanning of the chest after the administration of 100 mL of Isovue 370. Coronal/sagittal reconstructions performed. CT DLP: 226.6mGycm. Automatic exposure control utilized for a dose reduction. FINDINGS: Heart upper limits of normal in size without pericardial effusion. Aneurysm of the ascending aorta 4.8 cm is unchanged. Mild atherosclerotic arch calcifications with conventional branching anatomy. Aneurysm upper descending thoracic aorta 3.9 cm is unchanged. Aneurysm lower descending thoracic aorta 3.1 cm is unchanged. No thoracic lymphadenopathy. Moderate to advanced centrilobular emphysema. Patchy interstitial infiltrate anterior right lower lung has partially improved. Much of the consolid ation in the basilar right middle lobe has resolved. Patchy subpleural opacity peripheral left base relatively unchanged, probably pleural parenchymal sca rring. No new consolidation or pleural effusion. Partially visualized AAA measuring at least 3.3 cm, incompletely visualized. Surgical clips at the GE junction. Bones: Severe endplate fractures of T5, T6, T7 remain unchanged. Anterior wedging of T8 is unchanged. Superior endplate fractures of T12 and L1 with L1 anterior wedging and mild retropulsion into the ve ntral spinal canal are unchanged. IMPRESSION: 1. COPD with moderate to advanced emphysema. 2. Improving aeration with some residual interstitial infiltrate/pneumonitis in the anterior right lo wer lung. Suspect chronic pleural parenchymal scarring at the left base. 3. Thoracic aortic aneurysm measuring up to 4.8 cm is unchanged from 04/06/2020. 3. Partially visualized AAA measuring at least 3.3 cm. 4. Multiple superior endplate fractures throughout the thoracic spine and L1 vertebral body, unchange d from 04/06/2020.
--- NOTE | 2020-05-21 15:52 | CT ---
EXAMINATION TYPE: CT angio head neck DATE OF EXAM: 05/21/2020 COMPARISON: CT brain same day HISTORY: 84-year-old male confusion, dissection TECHNIQUE: Contiguous axial scanning of the head and neck performed with IV Contrast, patient injecte d with 65 mL of Isovue 370. Coronal/sagittal MIP reconstructions performed. 3-D reconstructions gener ated by dedicated independent workstation. CT DLP: 415.2 mGycm Automated exposure control for dose reduction was used. FINDINGS: NECK: No evidence for aortic dissection. Codominant vertebral arteries with mild episodic narrowing at both vessel origins. Right common carotid artery is patent. Moderate atherosclerotic change at the right bifurcation with a mild, less than 25% narrowing at the proximal right ICA. Left common carotid artery is patent. Moderate to the left bifurcation with mild, 25% narrowing at the ICA origin. HEAD: Vertebral and basilar arteries are patent as is the remainder of the posterior circulation. Mild atherosclerotic calcifications throughout the carotid siphons without any significant stenosis. Slightly hypoplastic A1 segment left anterior cerebral artery. Anterior circulation otherwise patent. No aneurysmal change is seen. IMPRESSION: 1. NECK: NO EVIDENCE FOR AORTIC DISSECTION. MILD, 25% OR LESS ATHEROSCLEROTIC NARROWING AT THE PROXIM AL ICA ON EITHER SIDE. 2. HEAD: NO EVIDENCE FOR INTRACRANIAL ARTERIAL OCCLUSION, SIGNIFICANT STENOSIS, OR ANEURYSMAL CHANGE.
[2020-05-21] MEDS ORDERED: diphenhydrAMINE 25 MG CAP PO PRN (16:59)
[2020-05-21] MEDS ORDERED: ACETAMINOPHEN TAB 500 MG TAB PO PRN (16:59)
[2020-05-21] MEDS ORDERED: ALBUTEROL HFA INHALER INHALATION PRN (16:59)
[2020-05-21] MEDS ORDERED: WARFARIN 5 MG TAB PO SCH (18:00)
--- NOTE | 2020-05-21 18:03 | P.HPIM ---
History of Present Illness H&P Date: 05/21/20 Chief Complaint: confusion Patient is an 84-year-old male with a history of A. fib on Coumadin for anticoagulation, COPD at 2L 24/7, ascending thoracic aortic aneurysm, left lower lobe lung mass, and prior tobacco abuse who presented to the ER with episode of confusion. In the ER he underwent an extensive evaluation. Initial vital signs were within normal limits. Laboratory analysis showed a white blood cell count of 11.1, lymphocytes 0.7, INR 2, sodium 135, carbon dioxide 33, blood sugar 61. Urinalysis was negative. He underwent a CT of the brain which showed no evidence of acute intracranial hemorrhage or ischemic changes. 1.2; polyp or mucous retention cyst within the right maxillary sinus. CT of the neck showed no evidence of significant narrowing of the internal carotid artery or aneurysmal change. CTA of the chest showed COPD with moderate to advanced emphysema, improved aeration with some residual infiltrate on the right and chronic pleural parenchymal scarring at the left. A redemonstration of breath is aortic aneurysm which was unchanged was demonstrated. Partial visualized abdominal aortic aneurysm was also demonstrated. He has multiple superior endplate fractures of the thoracic spine at L1 unchanged from 04/06/2020. There is concern for possible TIA in the ER. He was given aspirin and arrangements were made for observation. Patient seen and examined at bedside. Patient had an episode of confusion. He was staring and not answering his . Unable to tell his her name. Sitting at the table and going through the mail. No loss of consciousness. No warning. Episode lasted about 10-15 minutes. No loss bloss of bowel, bladder, shaking of one leg. Words were clear and no slurring, taking a long time to respond. He can recall feeling confused. No weakness, numness, tingling, O2 was on when it happened. No difficulty swallowing. Chronic cough with phlegm production that is intermittent. Oxygen sometimes come loose at night. O2 was on during episode of confusion. New medications in the last 2 weeks Torsemide. Has not started tamsulosin due to concerns of side effects. Dr. Zapata- pulmonary Dr. Erika Vanegas aneurysm + slow stream, and + constipation that are on going. Review of Systems Pertinent positives and negatives as discussed in HPI, a complete review of systems was performed and all other systems are negative. Past Medical History Past Medical History: Atrial Fibrillation, COPD, Respiratory Disorder Additional Past Medical History / Comment(s): Ascending thoracic aortic aneurysm measuring 4.8 cm in size, advanced COPD, left lower lobe mass measuring 3.4 x 3.3 cm in size History of Any Multi-Drug Resistant Organisms: None Reported Past Surgical History: Adenoidectomy, Hernia Repair, Tonsillectomy Additional Past Surgical History / Comment(s): ULCER REPAIR- 35 YEARS AGO, ade ract bilateral Past Anesthesia/Blood Transfusion Reactions: No Reported Reaction Past Psychological History: No Psychological Hx Reported Smoking Status: Former smoker (quit 12/2019) Past Alcohol Use History: Rare Past Drug Use History: None Reported - Past Family History Mother Family Medical History: Cancer Additional Family Medical History / Comment(s): from [place] (stomach) Father Family Medical History: Myocardial Infarction ([place]) Additional Family Medical History / Comment(s): passes away from aneurysm Medications and Allergies Home Medications Medication Instructions Recorded Confirmed Type Albuterol Sulfate [Proair Hfa] 2 puff INHALATION RT-Q6H PRN 09/27/17 05/21/20 History Flecainide [Tambocor] 50 mg PO Q12HR 09/27/17 05/21/20 History Triamcinolone 0.5% Cream [Kenalog 1 applic TOPICAL BID 09/27/17 05/21/20 History 0.5% Cream] Warfarin [Coumadin] 5 mg PO TUTHSA 09/27/17 05/21/20 History diphenhydrAMINE [Benadryl] 25 mg PO Q8H PRN 09/27/17 05/21/20 History Niacinamide 500 mg PO DAILY 01/19/20 05/21/20 History Ipratropium-Albuterol Nebulize 3 ml INHALATION RT-BID #60 neb 01/24/20 05/21/20 Rx [Duoneb 0.5 mg-3 mg/3 ml Soln] Acetaminophen [Tylenol] 500 mg PO Q4-6H PRN 05/21/20 05/21/20 History Multivitamins, Thera [Multivitamin 1 tab PO DAILY 05/21/20 05/21/20 History (formulary)] Tamsulosin HCl [Flomax] 0.4 mg PO DAILY 05/21/20 05/21/20 History Torsemide [Demadex] 20 mg PO DAILY 05/21/20 05/21/20 History Warfarin Sodium 2.5 mg PO SUMOWEFR 05/21/20 05/21/20 History Allergies Allergy/AdvReac Type Severity Reaction Status Date / Time No Known Allergies Allergy Verified 05/21/20 15:01 Physical Exam Osteopathic Statement: *. No significant issues noted on an osteopathic structural exam other than those noted in the History and Physical/Consult. Vitals: Vital Signs Temp Pulse Resp BP Pulse Ox 05/21/20 16:23 98.1 F 102 H 18 131/89 98 05/21/20 13:29 98.1 F 64 18 162/88 100 Intake and Output 05/21/20 05/21/20 05/21/20 06:59 14:59 22:59 Other: Weight 66.224 kg General: non toxic, no distress, appears at stated age, loss of buccal fat, temporal wasting. Derm: warm, dry Head: atraumatic, normocephalic, symmetric Eyes: EOMI, no lid lag, anicteric sclera, pupils equal round reactive to light ENT: Nose and ears atraumatic, no thrush, no pharyngeal erythema, + PND Neck: No thyromegaly, no cervical lymphadenopathy, trachea midline, supple Mouth: no lip lesion, mucus membranes moist Cardiovascular: S1S2 reg, no murmur, positive posterior tibial pulse bilateral, no edema, capillary refill less than 2 seconds Lungs: clear to ascultation bilateral, no ronchi, no rales, no wheeze, no accessory muscle use Abdominal: soft, nontender to palpation, no guarding, no appreciable organomegaly, normal bowel sounds Ext: + gross muscle atrophy, muscle strength muscle strength 4 out of 5 in all 4 extremities, no contractures Neuro: CN II-XI grossly intact, light touch intact all 4 extremities, finger to nose within normal limits, PERRL, EOMI intact, slight tngue deviation to the left. Uvula stuck to the right due to post nasal gtt but palate elevation appeared normal. Psych: Alert, oriented, appropriate affect Results CBC & Chem 7: 05/21/20 14:05 05/21/20 14:05 Labs: Abnormal Lab Results - Last 24 Hours (Table) 05/21/20 05/21/20 05/21/20 Range/Units 14:05 14:05 14:05 WBC 11.1 H (3.8-10.6) k/uL Hgb 12.2 L (13.0-17.5) gm/dL Neutrophils # 9.4 H (1.3-7.7) k/uL Lymphocytes # 0.7 L (1.0-4.8) k/uL PT 19.9 H (9.0-12.0) sec INR 2.0 H (<1.2) Sodium (137-145) mmol/L Carbon Dioxide (22-30) mmol/L Glucose (74-99) mg/dL Alkaline Phosphatase (38-126) U/L Urine Glucose (UA) 2+ H (Negative) 05/21/20 Range/Units 14:05 WBC (3.8-10.6) k/uL Hgb (13.0-17.5) gm/dL Neutrophils # (1.3-7.7) k/uL Lymphocytes # (1.0-4.8) k/uL PT (9.0-12.0) sec INR (<1.2) Sodium 135 L (137-145) mmol/L Carbon Dioxide 33 H (22-30) mmol/L Glucose 61 L (74-99) mg/dL Alkaline Phosphatase 138 H (38-126) U/L Urine Glucose (UA) (Negative) Assessment and Plan Assessment: Episode of acute confusion - Hypoglycemia vs hypoxemia vs arrhythmia vs TIA vs absence seizure - Accucheck qACHS and 2 AM - Tele, echo - neuro consult - CT head and CTA head and neck without significant abnormality - Check orthostatic vitals - hold benadryl Sinusitis - flonase - zyrtec - check COVID A fib on coumadin - INR therapeutic - Tele - Flecanide COPD without acute exacerbation with chronic hypoxic respiratory failure with home O2 at 2L - Home breathing treatments The patient is placed in observation with an anticipated less than 2 midnight stay for evaluation of acute confusion. Surrogate decision-maker: CODE STATUS: full code, no prolonged ventilation DVT prophylaxis: coumadin Discussed with: patient, nursing, Anticipated discharge date: 1-[address]: home A total of 35 minutes was spent on the care of this complex patient more than 50% of the time was spent in counseling and care coordination.
[2020-05-21] MEDS ORDERED: ACETAMINOPHEN TAB 325 MG TAB PO PRN (18:05)
[2020-05-21] MEDS ORDERED: NALOXONE 0.4 MG/ML 1 ML VIAL IV PRN (18:05)
[2020-05-21] MEDS: SODIUM CHLORIDE 0.9% 1,000 ML IV SCH (18:52)
[2020-05-21 20:25] LABS: Glucose,Whole Blood 106 mg/dL (75-99)
[2020-05-21] MEDS: LORATADINE 10 MG TAB PO SCH (20:48)
[2020-05-21] MEDS: FLECAINIDE 50 MG TAB PO SCH (20:48)
[2020-05-21] MEDS: TRIAMCINOLONE ACET 0.5% CREAM 15 GM TUBE TOPICAL SCH (20:49)
[2020-05-21] MEDS: IPRATROPIUM-ALBUTEROL 3 ML NEB INHALATION SCH (21:16)
[2020-05-21] MEDS: FLUTICASONE 50MCG/SPRAY NASAL 16GM EA NOSTRIL SCH (22:20)
[2020-05-22 01:53] LABS: Glucose,Whole Blood 87 mg/dL (75-99)
[2020-05-22 06:16] LABS: Glucose,Whole Blood 87 mg/dL (75-99)
[2020-05-22] MEDS: IPRATROPIUM-ALBUTEROL 3 ML NEB INHALATION SCH ×2 (08:19→20:51)
[2020-05-22] MEDS ORDERED: TORSEMIDE 20 MG TAB PO SCH (09:00)
[2020-05-22] MEDS ORDERED: TAMSULOSIN 0.4 MG CAP.ER.24H PO SCH (09:00)
[2020-05-22] MEDS ORDERED: NON FORMULARY DRUG (Niacinamide [Niacinamide] 500 MG Tablet) PO SCH (09:00)
[2020-05-22] MEDS: FLUTICASONE 50MCG/SPRAY NASAL 16GM EA NOSTRIL SCH (09:03)
[2020-05-22] MEDS: FLECAINIDE 50 MG TAB PO SCH ×2 (09:03→20:11)
[2020-05-22] MEDS: LORATADINE 10 MG TAB PO SCH (09:03)
[2020-05-22] MEDS: TRIAMCINOLONE ACET 0.5% CREAM 15 GM TUBE TOPICAL SCH ×2 (09:03→20:12)
[2020-05-22] MEDS: MULTIVITAMINS, THERA 1 EACH TAB PO SCH (09:03)
--- NOTE | 2020-05-22 09:51 | P.PN ---
Subjective Progress Note Date: 05/22/20 Patient feels okay today still shortness of breath but no confusion Constitutional: No acute distress, conversant, pleasant Eyes: Anicteric sclerae, moist conjunctiva, no lid-lag PERRLA ENMT: NC/AT Oropharynx clear, no erythema, exudates Neck: Supple, FROM, no masses, or JVD No carotid bruits No thyromegaly Lungs: Wheezing Cardiovascular: Heart regular in rate and rhythm, No murmurs, gallops, or rubs No peripheral edema Abdominal: Soft Nontender, no guarding, rebound or rigidity Abdomen moving with respiration Normoactive bowel sounds No hepatomegaly, No splenomegaly No palpable mass No abdominal wall hernia noted Skin: Normal temperature, tone, texture, turgor No induration No subcutaneous nodules No rash, lesions No ulcers Extremities: No digital cyanosis No clubbing Pedal pulses intact and symmetrical Radial pulses intact and symmetrical Normal gait and station No calf tenderness Psychiatric:Alert and oriented to person, place and time Appropriate affect Intact judgement Hypoglycemia vs hypoxemia vs arrhythmia vs TIA vs absence seizure - Accucheck qACHS and 2 AM - Tele, echo - neuro consult - CT head and CTA head and neck without significant abnormality - Check orthostatic vitals - hold benadryl Sinusitis - flonase - zyrtec - check COVID A fib on coumadin - INR therapeutic - Tele - Flecanide COPD patient is still short of breath and wheezing will start IV steroids will check ABGs Other mental status currently resolved we'll check MRI of the brain and monitor neurology has been consulted Continue to observe overnight Objective - Vital Signs Vital signs: Vital Signs Temp 97.8 F 05/22/20 08:00 Pulse 82 05/22/20 08:00 Resp 20 05/22/20 08:00 BP 168/98 05/22/20 08:00 Pulse Ox 99 05/22/20 08:00 Intake & Output 05/21/20 05/22/20 05/22/20 18:59 06:59 18:59 Intake Total 480 480 Output Total 600 300 Balance -120 180 Weight 66.224 kg 63.6 kg Intake: Oral 480 480 Output: Urine 600 300 Other: Voiding Method Urinal # Voids 1 # Bowel Movements 2 - Labs CBC & Chem 7: 05/21/20 14:05 05/21/20 14:05 Labs: Abnormal Lab Results - Last 24 Hours (Table) 05/21/20 05/21/20 05/21/20 Range/Units 14:05 14:05 14:05 WBC 11.1 H (3.8-10.6) k/uL Hgb 12.2 L (13.0-17.5) gm/dL Neutrophils # 9.4 H (1.3-7.7) k/uL Lymphocytes # 0.7 L (1.0-4.8) k/uL PT 19.9 H (9.0-12.0) sec INR 2.0 H (<1.2) Sodium (137-145) mmol/L Carbon Dioxide (22-30) mmol/L Glucose (74-99) mg/dL POC Glucose (mg/dL) (75-99) mg/dL Alkaline Phosphatase (38-126) U/L Urine Glucose (UA) 2+ H (Negative) 05/21/20 05/21/20 Range/Units 14:05 20:24 WBC (3.8-10.6) k/uL Hgb (13.0-17.5) gm/dL Neutrophils # (1.3-7.7) k/uL Lymphocytes # (1.0-4.8) k/uL PT (9.0-12.0) sec INR (<1.2) Sodium 135 L (137-145) mmol/L Carbon Dioxide 33 H (22-30) mmol/L Glucose 61 L (74-99) mg/dL POC Glucose (mg/dL) 106 H (75-99) mg/dL Alkaline Phosphatase 138 H (38-126) U/L Urine Glucose (UA) (Negative)
[2020-05-22] MEDS: methylPREDNISolone SOD SUCCI 40 MG/ML 1 ML VIAL IV SCH ×2 (10:27→20:11)
--- NOTE | 2020-05-22 10:32 | ECHOF ---
Referral Reason:TIA, A fib MEASUREMENTS -------- HEIGHT: 182.9 cm WEIGHT: 63.5 kg BP: 166/94 RVIDd: 3.0 cm (< 3.3) IVSd: 1.3 cm (0.6 - 1.1) LVIDd: 3.9 cm (3.9 - 5.3) LVPWd: 1.3 cm (0.6 - 1.1) IVSs: 1.6 cm LVIDs: 3.0 cm LVPWs: 1.4 cm LA Diam: 2.6 cm (2.7 - 3.8) Ao Diam: 4.1 cm (2.0 - 3.7) AV Cusp: 1.8 cm (1.5 - 2.6) MV EXCURSION: 10.022 mm (> 18.000) MV EF SLOPE: 32 mm/s (70 - 150) EPSS: 0.5 cm MV E Kiko: 0.59 m/s MV DecT: 374 ms MV A Kiko: 0.79 m/s MV E/A Ratio: 0.74 AR PHT: 642 ms RAP: 5.00 mmHg RVSP: 31.25 mmHg FINDINGS -------- Sinus rhythm. This was a technically difficult study with suboptimal parasternal views. The left ventricular size is normal. There is mild concentric left ventricular hypertrophy. Overa ll left ventricular systolic function is normal with, an EF between 55 - 60 %. The right ventricle is normal in size. The left atrium is normal in size. The right atrial size is normal. Interatrial and interventricular septum intact. There is mild aortic valve sclerosis. There is mild aortic regurgitation. Mild mitral annular calcification present. Moderate mitral regurgitation is present. The tricuspid valve appears structurally normal. Mild tricuspid regurgitation present. Right vent ricular systolic pressure is normal at < 35 mmHg. The pulmonic valve was not well visualized. The aortic root is dilated measuring 4.1cm. IVC Not well visulized. There is no pericardial effusion. CONCLUSIONS -------- 1. There is mild concentric left ventricular hypertrophy. 2. Overall left ventricular systolic function is normal with, an EF between 55 - 60 %. 3. There is mild aortic valve sclerosis. 4. There is mild aortic regurgitation. 5. Mild mitral annular calcification present. 6. Moderate mitral regurgitation is present. 7. Mild tricuspid regurgitation present. 8. The aortic root is dilated measuring 4.1cm. 9. There is no pericardial effusion. FORK LIFT TECHNICIAN: Nora Burnham RDCS
--- NOTE | 2020-05-22 11:10 | P.CNNES ---
History of Present Illness Consult date: 05/22/20 Requesting physician: John Edge Reason for Consult: altered mental status concern for TIA History of Present Illness: This is an 84-year-old gentleman with history of ascending thoracic aortic aneurysm aneurysm, atrial fibrillation on coumadin, left lower lobe lung mass, prior tobacco use and advanced COPD who presented emergency department on 05/21/2020 for an episode of confusion. The patient presented to the ED and the was at bedside which she help provide with information. According to the patient he was sitting at the kitchen table when he had an episode of confusion. He was disoriented and didn't know where he was which is similar to what ED noted when was present. This happened yesterday at around 11am. He was slow to respond. The symptoms lasted for about 30 minutes. Patient denies any loss of consciousness with the episode, tongue bite, urinary or bowel incontinence. He didn't have any slurring the speech or weakness or numbness. He denied of any chest pain. But the patient then noted that the patient was short of breath as a result EMS was called. Patient does not have any history of prior strokes in the past. She does not have any similar presentation to this in the past. His sugar level was not checked at home but stated he did have his breakfast in morning which was 2 hours prior to event. He denies of history of seizure or family his of seizure His history as far as he knows was normal and no complication. Patient stated he had thoracic fracture in past where he was mowing his lawn. He was evaluated by Orthopedic in past. Currently he has no back pain and denies any lower extremity weakness. Workup in the hospital consisted of: Initial vital signs: Blood pressure of 160/88, heart rate of 64, rest. 18, temperature of 98.1 Fahrenheit oral and pulse ox of 100% on nasal cannula [address] of the head is reported as mild generalized atrophy. No acute intracranial abnormality is seen EKG is reported as normal sinus rhythm. Possible left atrial enlargement. Left anterior fascicular block. Septal infarct, age undetermined. Abnormal EKG that . CT angiography of the head and neck is reported as the head shows no evidence of intracranial arterial occlusion, significant stenosis or aneurysm changes. Neck shows no evidence for aortic dissection. Mild, 25% or less atherosclerotic narrowing at the proximal internal carotid artery on either side. CT of the chest is reported as COPD with moderate to advanced at emphysema. Improving aeration with some residual interstitial infiltrate/pneumonitis in the anterior right lower lung that. Suspect chronic pleural parenchymal scarring of the at the lung base. Thoracic aortic aneurysm measuring up to 4.8 cm is unchanged from 04/06/2020. Pressure visualized abdominal aortic aneurysm measuring at least 3.3 cm. Multiple superior endplate fracture throughout the thoracic spine and L1 vertebral body, unchanged from 04/06/2020 Initial serum glucose 61 which is considered low and the normals between 74 and 99 Review of Systems Review of system: The 12 point system was reviewed and apparent positive and negative per HPI. Past Medical History Past Medical History: Atrial Fibrillation, COPD, Respiratory Disorder Additional Past Medical History / Comment(s): Ascending thoracic aortic aneurysm measuring 4.8 cm in size, advanced COPD, left lower lobe mass measuring 3.4 x 3.3 cm in size History of Any Multi-Drug Resistant Organisms: None Reported Past Surgical History: Adenoidectomy, Hernia Repair, Tonsillectomy Additional Past Surgical History / Comment(s): ULCER REPAIR- 35 YEARS AGO, cataract bilateral Past Anesthesia/Blood Transfusion Reactions: No Reported Reaction Past Psychological History: No Psychological Hx Reported Smoking Status: Former smoker (quit 12/2019) Past Alcohol Use History: Rare Past Drug Use History: None Reported - Past Family History Mother Family Medical History: Cancer Additional Family Medical History / Comment(s): from [place] (stomach) Father Family Medical History: Myocardial Infarction ([place]) Additional Family Medical History / Comment(s): passes away from aneurysm Medications and Allergies Home Medications Medication Instructions Recorded Confirmed Type Albuterol Sulfate [Proair Hfa] 2 puff INHALATION RT-Q6H PRN 09/27/17 05/21/20 History Flecainide [Tambocor] 50 mg PO Q12HR 09/27/17 05/21/20 History Triamcinolone 0.5% Cream [Kenalog 1 applic TOPICAL BID 09/27/17 05/21/20 History 0.5% Cream] Warfarin [Coumadin] 5 mg PO TUTHSA 09/27/17 05/21/20 History diphenhydrAMINE [Benadryl] 25 mg PO Q8H PRN 09/27/17 05/21/20 History Niacinamide 500 mg PO DAILY 01/19/20 05/21/20 History Ipratropium-Albuterol Nebulize 3 ml INHALATION RT-BID #60 neb 01/24/20 05/21/20 Rx [Duoneb 0.5 mg-3 mg/3 ml Soln] Acetaminophen [Tylenol] 500 mg PO Q4-6H PRN 05/21/20 05/21/20 History Multivitamins, Thera [Multivitamin 1 tab PO DAILY 05/21/20 05/21/20 History (formulary)] Tamsulosin HCl [Flomax] 0.4 mg PO DAILY 05/21/20 05/21/20 History Torsemide [Demadex] 20 mg PO DAILY 05/21/20 05/21/20 History Warfarin Sodium 2.5 mg PO SUMOWEFR 05/21/20 05/21/20 History Allergies Allergy/AdvReac Type Severity Reaction Status Date / Time No Known Allergies Allergy Verified 05/21/20 15:01 Physical Examination - Vital Signs Vital Signs: Vital Signs Temp Pulse Pulse Resp BP BP Pulse Ox 05/22/20 03:44 97.5 F L 72 20 166/94 98 05/21/20 23:16 97.6 F 94 20 136/83 97 05/21/20 21:24 84 05/21/20 21:16 84 05/21/20 20:00 97.3 F L 77 22 127/78 98 05/21/20 18:48 97.9 F 89 18 161/93 95 05/21/20 16:23 98.1 F 102 H 18 131/89 98 05/21/20 13:29 98.1 F 64 18 162/88 100 Intake and Output 05/21/20 05/22/20 05/22/20 22:59 06:59 14:59 Intake Total 240 240 480 Output Total 150 450 300 Balance 90 -210 180 Intake: Oral 240 240 480 Output: Urine 150 450 300 Other: Voiding Method Urinal # Voids 1 1 # Bowel Movements 2 Weight 66.224 kg 63.6 kg GENERAL: The patient is lying in bed and is not in acute distress. CHEST: The heart rate is regular rate rhythm. No murmurs to auscultation. No carotid bruit bilaterally. LUNG: Clear to auscultation bilaterally no wheezing noted throughout. Not labored breathing. ABDOMEN/GI: Bowel sounds present in all 4 quadrants. No tenderness to palpation throughout. NEUROLOGICAL: Higher mental function: The patient is awake, alert, oriented to self, place and time. Patient is following commands. No aphasia and no neglect. Cranial nerves: The pupils are round, equal and reactive to light and accommodation. Visual kan are full to confrontation throughout. Extraocular movement is intact no nystagmus is noted. Facial sensation is normal to touch throughout. The facial strength is normal throughout. Hearing is normal bilaterally to hand rub. Tongue is midline and moved [id number] without any difficulty. No dysarthria is noted. Shoulder shrug is normal bilaterally. Motor: The strength is 5 over 5 throughout. Normal tone and bulk. Cerebellum: Normal finger to nose heel to chin bilaterally. Sensation: Sensation is normal to touch throughout. Reflexes (right/left): 2+ throughout. Plantars are downgoing bilaterally. Results AST of 34 and ALT of 18. The calcium is 8.5. Coagulation study: The PT is 9.9, INR is 2.0 and the PTT is 29.7. Urinalysis is negative for urinary tract infection. Hancock virus PCR is negative. - Laboratory Findings CBC and BMP: 05/22/20 10:37 05/22/20 10:37 Abnormal Lab Findings: Abnormal Labs 05/21/20 05/21/20 05/21/20 14:05 14:05 14:05 WBC 11.1 H Hgb 12.2 L Neutrophils # 9.4 H Lymphocytes # 0.7 L PT 19.9 H INR 2.0 H Sodium Carbon Dioxide Glucose POC Glucose (mg/dL) Alkaline Phosphatase Urine Glucose (UA) 2+ H 05/21/20 05/21/20 14:05 20:24 WBC Hgb Neutrophils # Lymphocytes # PT INR Sodium 135 L Carbon Dioxide 33 H Glucose 61 L POC Glucose (mg/dL) 106 H Alkaline Phosphatase 138 H Urine Glucose (UA) Assessment and Plan Assessment: This is an 84-year-old gentleman with significant medical history that presented to the emergency department on 05/21/2020 for an episode of confusion. He had the an episode where he was in his kitchen and didn't know where he was in the episode lasted for about 30 minutes. On presentation to the hospital he had the low POC glucose of the level of 61. Transeint altered mental status. One could be due to episode is hypoglycemia. Cannot rule out seizure. Unlikely Stroke or TIA. Episode of Hypoglycemia Multiple superior endplate fracture throughout the thoracic spine and L1 vertebral body Atrial fibrillation on Coumadin and INR is therapeutic History ascending thoracic aortic aneurysm aneurysm Abdominal aortic aneurysm History of advanced COPD History of a lower lobe lung mass X tobacco use Plan: CT of the head is reported as mild generalized atrophy. No acute intracranial abnormality is seen CT angiography of the head and neck is reported as the head shows no evidence of intracranial arterial occlusion, significant stenosis or aneurysm changes. Neck shows no evidence for aortic dissection. Mild, 25% or less atherosclerotic narrowing at the proximal internal carotid artery on either side. Currently the patient is on Coumadin for his atrial fibrillation and his Coumadin as well as continued doing his hospital stay. I would recommend starting the patient on the Lipitor 40 mg daily. Lipid panel is pending. 2-D echo is ordered by the primary team and is pending. Primary team ordered MRI of the brain. PT OT and CARD READER are consulted. Currently today we do not have any EEG techs for an EEG to be performed. Recommend routine EEG as outpatient. We will not start the patient on the a ntiepileptic drug since it's not certain that this was due to seizures. Possibly due to hypoglycemia. And it was suspicious for seizure then it would have been first event if any. The If the patient continues to have these episodes would recommend the patient to avoid driving for 6 month until resolves, avoid the using heavy machinery, swimming unassisted. Please avoid any further hypo-glycemic events that. We'll defer the rest of the medical management to the primary team. Thank you for the consultation. There is no neurology coverage over the weekend. Dr. Pepe will resume neurology coverage on 05/25/2020. Bryan Zapata M.D. Neuro-hospitalist Time with Patient: Greater than 30
[2020-05-22 11:17] LABS: HCT 36.5 % (39.0-53.0); HGB 12.2 gm/dL (13.0-17.5); MCH 29.6 pg (25.0-35.0); MCHC 33.5 g/dL (31.0-37.0); MCV 88.2 fL (80.0-100.0); Mean Platelet Volume 6.9; Platelet Count 221 k/uL (150-450); RBC 4.14 m/uL (4.30-5.90); RDW 13.4 % (11.5-15.5); WBC 6.9 k/uL (3.8-10.6)
[2020-05-22 11:25] LABS: INR 2.2 (<1.2); Prothrombin Time 21.1 sec (9.0-12.0)
[2020-05-22 11:29] LABS: African American GFR (CKD) >90 (>60 ml/min/1.73 sqM); Anion Gap 2 mmol/L; Blood Urea Nitrogen 16 mg/dL (9-20); Calcium 8.9 mg/dL (8.4-10.2); Carbon Dioxide 32 mmol/L (22-30); Chloride 100 mmol/L (98-107); Cholesterol 181 mg/dL (<200); Glucose 89 mg/dL (74-99); HDL Cholesterol 77 mg/dL (40-60); LDL Cholesterol,Calculated 87 mg/dL (0-99); Non-African American GFR(CKD) 83 (>60 ml/min/1.73 sqM); Potassium 4.4 mmol/L (3.5-5.1); Sodium 134 mmol/L (137-145); Triglycerides 85 mg/dL (<150)
[2020-05-22 11:47] LABS: Glucose,Whole Blood 87 mg/dL (75-99)
[2020-05-22] MEDS ORDERED: DILTIAZEM 5 MG/ML 5 ML VIAL IVP STA (12:43)
[2020-05-22 14:14] LABS: ABG Base Excess 3.8 mmol/L; ABG HCO3 28 mmol/L (21-25); ABG Oxygen Saturation 96.2 % (94-97); ABG PCO2 41 mmHg (35-45); ABG PH 7.44 (7.35-7.45); ABG PO2 77 mmHg (83-108); ABG TCO2 29 mmol/L (19-24); Allen Test Performed? Yes
--- NOTE | 2020-05-22 15:04 | MR ---
EXAMINATION TYPE: MR brain wo con DATE OF EXAM: 05/22/2020 COMPARISON: CT brain from yesterday HISTORY: Altered Mental Status TECHNIQUE: Multiplanar, multisequence imaging of the brain and brainstem is performed without IV cont rast. FINDINGS: Diffusion weighted images demonstrate no evidence of a recent infarct or other diffusion abnormality. There is mild to moderate diffuse ventricular and sulcal prominence. Findings greatest over the bilat eral frontal lobes. There are some vague confluent areas of T2 hyperintensity in the periventricular white matter. Midline structures demonstrate normal morphology. The craniocervical junction appears within normal limits. Normal vascular flow voids are present. There is 1.3 cm mucous retention cyst or polyp in the anterior right maxillary sinus axial image 8. IMPRESSION: No MRI evidence for recent infarct. [id number] diffuse cerebral atrophy and mild ch ronic small vessel ischemic changes.
[2020-05-22 16:40] LABS: Glucose,Whole Blood 123 mg/dL (75-99)
[2020-05-22] MEDS ORDERED: WARFARIN 2.5 MG TAB PO SCH (18:00)
[2020-05-22] MEDS: SODIUM CHLORIDE 0.9% 1,000 ML IV SCH (20:12)
[2020-05-22 20:49] LABS: Glucose,Whole Blood 104 mg/dL (75-99)
[2020-05-22] MEDS ORDERED: ATORVASTATIN 40 MG TAB PO SCH (21:00)
[2020-05-23 00:23] VITALS: RESP 18
[2020-05-23 02:05] LABS: Glucose,Whole Blood 119 mg/dL (75-99)
[2020-05-23 03:26] VITALS: TEMP 98.2
[2020-05-23 06:22] LABS: Glucose,Whole Blood 95 mg/dL (75-99)
[2020-05-23 07:35] LABS: Basophils % (A) 1 %; Eosinophils % (A) 0 %; HCT 40.9 % (39.0-53.0); HGB 13.3 gm/dL (13.0-17.5); Lymphocytes % (A) 13 %; MCH 28.4 pg (25.0-35.0); MCHC 32.6 g/dL (31.0-37.0); Monocytes # (A) 0.9 k/uL (0-1.0); Monocytes % (A) 12 %; Neutrophils # (A) 5.5 k/uL (1.3-7.7); Neutrophils % (A) 72 %; Platelet Count 269 k/uL (150-450); RDW 13.2 % (11.5-15.5); WBC 7.5 k/uL (3.8-10.6)
[2020-05-23 08:07] LABS: INR 2.3 (<1.2); Prothrombin Time 22.1 sec (9.0-12.0)
[2020-05-23] MEDS: methylPREDNISolone SOD SUCCI 40 MG/ML 1 ML VIAL IV SCH (08:49)
[2020-05-23] MEDS: FLECAINIDE 50 MG TAB PO SCH (08:49)
[2020-05-23] MEDS: LORATADINE 10 MG TAB PO SCH (08:49)
[2020-05-23] MEDS: MULTIVITAMINS, THERA 1 EACH TAB PO SCH (08:49)
[2020-05-23] MEDS: IPRATROPIUM-ALBUTEROL 3 ML NEB INHALATION SCH (08:53)
[2020-05-23 09:27] VITALS: BP 102/73; PULSE 61
--- NOTE | 2020-05-23 09:53 | P.DS ---
Providers Date of admission: 05/21/20 17:14 Attending physician: Rhea Haley DO Consults: 05/21/20 16:57 Consult Physician Routine Consulting Provider: Bryan Zapata Consult Reason/Comments: TIA, episode of altered mental status Do you want consulting provider notified?: Yes 05/22/20 12:43 Consult Physician Routine Consulting Provider: Ty Borrero Consult Reason/Comments: atrial fib Do you want consulting provider notified?: Yes Primary care physician: Anamaria Faria Hospital Course: 84-year-old male admitted to the hospital with episodes of confusion out of mental status stayed only for several minutes resolved currently patient is alert oriented unit hospice if the patient remained alert and oriented 3 patient did have shortness of breath likely due to COPD exacerbation several IV steroids improved the patient has been evaluated by neurology. The patient to be discharged home the patient did have episodes of atrial fibrillation with RVR required only 1 dose of IV Cardizem currently the rate is within normal limits Constitutional: No acute distress, conversant, pleasant Eyes: Anicteric sclerae, moist conjunctiva, no lid-lag PERRLA ENMT: NC/AT Oropharynx clear, no erythema, exudates Neck: Supple, FROM, no masses, or JVD No carotid bruits No thyromegaly Lungs: Clear to auscultation Clear to percussion Normal respiratory effort, no accessory muscle use Cardiovascular: Heart regular in rate and rhythm, No murmurs, gallops, or rubs No peripheral edema Abdominal: Soft Nontender, no guarding, rebound or rigidity Abdomen moving with respiration Normoactive bowel sounds No hepatomegaly, No splenomegaly No palpable mass No abdominal wall hernia noted Skin: Normal temperature, tone, texture, turgor No induration No subcutaneous nodules No rash, lesions No ulcers Extremities: No digital cyanosis No clubbing Pedal pulses intact and symmetrical Radial pulses intact and symmetrical Normal gait and station No calf tenderness Psychiatric:Alert and oriented to person, place and time Appropriate affect Intact judgement Discharge plan Other mental status currently resolved no evidence of CVA patient has been evaluated by neurology likely from hypoxia and hypo-glycemia Patient is to follow-up with neurology as an outpatient Atrophy ablation with RVR follow-up with cardiology Overall the condition of the patient is stable patient will be discharged home COPD with exacerbation clinically resolved continue prednisone Patient Condition at Discharge: Fair Plan - Discharge Summary Discharge Rx Participant: No New Discharge Prescriptions: New predniSONE 40 mg PO DAILY #4 tab Atorvastatin Calcium [Lipitor] 40 mg PO DAILY #30 tablet No Action Warfarin [Coumadin] 5 mg PO TUTHSA diphenhydrAMINE [Benadryl] 25 mg PO Q8H PRN PRN Reason: Allergy Symptoms and Rash Triamcinolone 0.5% Cream [Kenalog 0.5% Cream] 1 applic TOPICAL BID Flecainide [Tambocor] 50 mg PO Q12HR Albuterol Sulfate [Proair Hfa] 2 puff INHALATION RT-Q6H PRN PRN Reason: Shortness Of Breath Niacinamide 500 mg PO DAILY Ipratropium-Albuterol Nebulize [Duoneb 0.5 mg-3 mg/3 ml Soln] 3 ml INHALATION RT-BID #60 neb Acetaminophen [Tylenol] 500 mg PO Q4-6H PRN PRN Reason: Pain Torsemide [Demadex] 20 mg PO DAILY Multivitamins, Thera [Multivitamin (formulary)] 1 tab PO DAILY Tamsulosin HCl [Flomax] 0.4 mg PO DAILY Warfarin Sodium 2.5 mg PO SUMOWEFR Discharge Medication List Albuterol Sulfate [Proair Hfa] 2 puff INHALATION RT-Q6H PRN 09/27/17 [History] Flecainide [Tambocor] 50 mg PO Q12HR 09/27/17 [History] Triamcinolone 0.5% Cream [Kenalog 0.5% Cream] 1 applic TOPICAL BID 09/27/17 [His tory] Warfarin [Coumadin] 5 mg PO TUTHSA 09/27/17 [History] diphenhydrAMINE [Benadryl] 25 mg PO Q8H PRN 09/27/17 [History] Niacinamide 500 mg PO DAILY 01/19/20 [History] Ipratropium-Albuterol Nebulize [Duoneb 0.5 mg-3 mg/3 ml Soln] 3 ml INHALATION RT-BID #60 neb 01/24/20 [Rx] Acetaminophen [Tylenol] 500 mg PO Q4-6H PRN 05/21/20 [History] Multivitamins, Thera [Multivitamin (formulary)] 1 tab PO DAILY 05/21/20 [History] Tamsulosin HCl [Flomax] 0.4 mg PO DAILY 05/21/20 [History] Torsemide [Demadex] 20 mg PO DAILY 05/21/20 [History] Warfarin Sodium 2.5 mg PO SUMOWEFR 05/21/20 [History] Atorvastatin Calcium [Lipitor] 40 mg PO DAILY #30 tablet 05/23/20 [Rx] predniSONE 40 mg PO DAILY #4 tab 05/23/20 [Rx] Follow up Appointment(s)/Referral(s): Bora James MD [STAFF PHYSICIAN] - 2 Weeks Anamaria Faria MD [Primary Care Provider] - 1-2 days Patient Instructions/Handouts: A-fib (Atrial Fibrillation) (DC), Non-diabetic Hypoglycemia (DC), COPD (Chronic Obstructive Pulmonary Disease) (DC) Discharge Disposition: HOME SELF-CARE
== END 2020-05-23 11:25 | disposition home or self-care (01) ==
LOC: EC 13:24 → 3SCARD 17:14
PROVIDERS: ADMIT Internal Medicine; ATTEND Internal Medicine
DX: R41.82 Altered mental status, unspecified (principal); I48.91 Unspecified atrial fibrillation; I71.4 Abdominal aortic aneurysm, without rupture; I71.2 Thoracic aortic aneurysm, without rupture; J44.9 Chronic obstructive pulmonary disease, unspecified; R91.8 Other nonspecific abnormal finding of lung field; Z90.89 Acquired absence of other organs; Z98.890 Other specified postprocedural states; Z98.42 Cataract extraction status, left eye; Z98.41 Cataract extraction status, right eye; F17.200 Nicotine dependence, unspecified, uncomplicated; Z82.49 Family history of ischemic heart disease and other diseases of the circulatory system; R05 Cough; Z99.81 Dependence on supplemental oxygen; K59.00 Constipation, unspecified; E16.2 Hypoglycemia, unspecified; S32.009D Unspecified fracture of unspecified lumbar vertebra, subsequent encounter for fracture with routine healing; S22.009D Unspecified fracture of unspecified thoracic vertebra, subsequent encounter for fracture with routine healing; I44.4 Left anterior fascicular block; J18.9 Pneumonia, unspecified organism; J43.9 Emphysema, unspecified; Z79.01 Long term (current) use of anticoagulants; Z79.899 Other long term (current) drug therapy
CPT/HCPCS: 96376 ×2; 96375; 93005 ×2; 96374; 99285; 36415; 94640 ×3; 36600; 93306; 97161; 97166; 80061; 80053; 80048; 82550; 82805; 84484; 85025 ×2; 85027; 85610 ×3; 85730; 81003; 87635; 70496; 70450; 71260; 70498; 70551; G0378 ×3; J2920 ×2; Q9967

== ENCOUNTER 2020-10-19 07:55 | Emergency (ER) | payer MEDICARE ==
[2020-10-19 08:02] VITALS: TEMP 97.8
--- NOTE | 2020-10-19 08:55 | ED ---
General Adult HPI - General Chief complaint: Shortness of Breath Stated complaint: ERIC/Unable to Urinate Time Seen by Provider: 10/19/20 08:09 Source: patient Mode of arrival: wheelchair Limitations: physical limitation - History of Present Illness Initial comments: Patient is an 84-year-old male with history of A. fib, COPD on 3 L, presenting to the emergency department with multiple complaints. Patient states that he is having trouble urinating, it only comes out as a trouble and it also has some pain associated with it. He states is not going on for a few days. He is also complaining of shortness of breath. He does have history of COPD and is normally on 3 L. He states it feels like it might be "a little bit worse than normal." He states his feet are a little bit swollen but states it actually looks better than normal. He has been eating and drinking okay. He denies any fevers or chills, no chest pain, no nausea or vomiting. He denies any changes in medication. He states he is mostly here because of the urination. He has no further complaints at this time. Upon arrival to the ER, his vitals are stable, on 3 L of O2. - Related Data Home Medications Medication Instructions Recorded Confirmed Flecainide [Tambocor] 50 mg PO Q12HR 09/27/17 10/19/20 Warfarin [Coumadin] 5 mg PO W/SUPPER 09/27/17 10/19/20 diphenhydrAMINE [Benadryl] 25 mg PO Q4H PRN 09/27/17 10/19/20 Niacinamide 500 mg PO DAILY 01/19/20 10/19/20 Acetaminophen [Tylenol] 500 mg PO Q4H PRN 05/21/20 10/19/20 Multivitamins, Thera [Multivitamin 1 tab PO DAILY 05/21/20 10/19/20 (formulary)] Albuterol Sulfate [Albuterol 2 puff INHALATION RT-QID PRN 10/19/20 10/19/20 Sulfate Hfa] predniSONE 5 mg PO DAILY 10/19/20 10/19/20 Previous Rx's Medication Instructions Recorded Ipratropium-Albuterol Nebulize 3 ml INHALATION RT-BID #60 neb 01/24/20 [Duoneb 0.5 mg-3 mg/3 ml Soln] Allergies Allergy/AdvReac Type Severity Reaction Status Date / Time No Known Allergies Allergy Verified 10/19/20 10:08 Review of Systems ROS Statement: Those systems with pertinent positive or pertinent negative responses have been documented in the HPI. ROS Other: All systems not noted in ROS Statement are negative. Past Medical History Past Medical History: Atrial Fibrillation, COPD, Respiratory Disorder Additional Past Medical History / Comment(s): Ascending thoracic aortic aneurysm measuring 4.8 cm in size, advanced COPD, left lower lobe mass measuring 3.4 x 3.3 cm in size History of Any Multi-Drug Resistant Organisms: None Reported Past Surgical History: Adenoidectomy, Hernia Repair, Tonsillectomy Additional Past Surgical History / Comment(s): ULCER REPAIR- 35 YEARS AGO, cataract bilateral Past Anesthesia/Blood Transfusion Reactions: No Reported Reaction Past Psychological History: No Psychological Hx Reported Smoking Status: Former smoker Past Alcohol Use History: Rare Past Drug Use History: None Reported - Past Family History Mother Family Medical History: Cancer Additional Family Medical History / Comment(s): from [place] (stomach) Father Family Medical History: Myocardial Infarction ([place]) Additional Family Medical History / Comment(s): passes away from aneurysm General Exam - General Exam Comments Initial Comments: GENERAL: Patient is well-developed and well-nourished. Patient is nontoxic and in no acute distress. HEAD: Atraumatic, normocephalic. EYES: Pupils equal round and reactive to light, extraocular movements intact, sclera anicteric, conjunctiva are normal. Eyelids were unremarkable. ENT: TMs normal, nares patent, oropharynx clear without exudates. Moist mucous membranes. NECK: Normal range of motion, supple without lymphadenopathy or JVD. LUNGS: Unlabored respirations. Breath sounds clear to auscultation bilaterally and equal. No wheezes rales or rhonchi. HEART: Regular rate and rhythm without murmurs, rubs or gallops. ABDOMEN: Soft, nontender, normoactive bowel sounds. No guarding, no rebound. No masses appreciated. : Deferred MUSCULOSKELETAL: Normal extremities with adequate strength and normal range of motion, no pitting. No clubbing or cyanosis. Mild bilateral feet edema, neurovascular intact. NEUROLOGICAL: Patient is alert and oriented x 3. Motor and sensory are also intact. Cranial nerves II through XII grossly intact. Symmetrical smile. Normal speech, normal gait. PSYCH: Normal mood, normal affect. SKIN: Warm, Dry, normal turgor, no rashes or lesions noted. Limitations: physical limitation Course Vital Signs 10/19/20 07:58 Temperature 97.8 F Pulse Rate 74 Respiratory 22 Rate Blood Pressure 157/89 O2 Sat by Pulse 98 Oximetry EKG Findings - EKG Comments: EKG Findings:: Normal sinus rhythm, possible left atrial enlargement, left anterior fascicular block, left ventricular hypertrophy, cannot rule out anterior infarct, age undetermined. This is similar to his previous EKG on 05/21/2020. No signs of acute process. Ventricular rate 69, WA interval 188, QTC 424. Medical Decision Making - Medical Decision Making Patient is a 84-year-old male here for concerns of difficulty urination and been getting worse over the past week. He denies any fevers, vital signs are stable. He is also concerned that he feels like shortness of breath was getting Worse. Does have a history of COPD comes currently on 3 L of home O2. His vitals are stable here. Chest x-ray shows stable COPD, no acute process. Lab work is also within normal limits. Urine shows no evidence of bacteria. Patient has a rest ing completely here in the ER. Patient had 400 mL fluid on bladder scan, was able to void without difficulty, post void scan was <100ml. patient is stable for discharge, he will follow up with urology. I did give him the option of a catheter however patient refused at this time. Return parameters were discussed with him and he verbalized understanding. Case discussed with Dr. Gr. - Lab Data Result diagrams: 10/19/20 08:25 10/19/20 08:25 Lab Results 10/19/20 10/19/20 10/19/20 Range/Units 08:25 08:25 08:25 WBC 6.1 (3.8-10.6) k/uL RBC 4.35 (4.30-5.90) m/uL Hgb 12.3 L (13.0-17.5) gm/dL Hct 36.5 L (39.0-53.0) % MCV 84.0 (80.0-100.0) fL MCH 28.2 (25.0-35.0) pg MCHC 33.6 (31.0-37.0) g/dL RDW 14.5 (11.5-15.5) % Plt Count 313 (150-450) k/uL MPV 6.7 Neutrophils % 63 % Lymphocytes % 14 % Monocytes % 9 % Eosinophils % 11 % Basophils % 1 % Neutrophils # 3.9 (1.3-7.7) k/uL Lymphocytes # 0.8 L (1.0-4.8) k/uL Monocytes # 0.6 (0-1.0) k/uL Eosinophils # 0.7 (0-0.7) k/uL Basophils # 0.1 (0-0.2) k/uL Sodium 131 L (137-145) mmol/L Potassium 4.4 (3.5-5.1) mmol/L Chloride 96 L (98-107) mmol/L Carbon Dioxide 31 H (22-30) mmol/L Anion Gap 4 mmol/L BUN 13 (9-20) mg/dL Creatinine 0.77 (0.66-1.25) mg/dL Est GFR (CKD-EPI)AfAm >90 (>60 ml/min/1.73 sqM) Est GFR (CKD-EPI)NonAf 84 (>60 ml/min/1.73 sqM) Glucose 84 (74-99) mg/dL Plasma Lactic Acid Isacc 0.9 (0.7-2.0) mmol/L Calcium 8.5 (8.4-10.2) mg/dL Total Bilirubin 0.5 (0.2-1.3) mg/dL AST 43 (17-59) U/L ALT 20 (4-49) U/L Alkaline Phosphatase 116 (38-126) U/L Troponin I (0.000-0.034) ng/mL NT-Pro-B Natriuret Pep pg/mL Total Protein 6.3 (6.3-8.2) g/dL Albumin 3.8 (3.5-5.0) g/dL Urine Color Urine Appearance (Clear) Urine pH (5.0-8.0) Ur Specific Savage (1.001-1.035) Urine Protein (Negative) Urine Glucose (UA) (Negative) Urine Ketones (Negative) Urine Blood (Negative) Urine Nitrite (Negative) Urine Bilirubin (Negative) Urine Urobilinogen (<2.0) mg/dL Ur Leukocyte Esterase (Negative) 06/21/21 06/21/21 06/21/21 Range/Units 08:25 08:25 08:25 WBC (3.8-10.6) k/uL RBC (4.30-5.90) m/uL Hgb (13.0-17.5) gm/dL Hct (39.0-53.0) % MCV (80.0-100.0) fL MCH (25.0-35.0) pg MCHC (31.0-37.0) g/dL RDW (11.5-15.5) % Plt Count (150-450) k/uL MPV Neutrophils % % Lymphocytes % % Monocytes % % Eosinophils % % Basophils % % Neutrophils # (1.3-7.7) k/uL Lymphocytes # (1.0-4.8) k/uL Monocytes # (0-1.0) k/uL Eosinophils # (0-0.7) k/uL Basophils # (0-0.2) k/uL Sodium (137-145) mmol/L Potassium (3.5-5.1) mmol/L Chloride (98-107) mmol/L Carbon Dioxide (22-30) mmol/L Anion Gap mmol/L BUN (9-20) mg/dL Creatinine (0.66-1.25) mg/dL Est GFR (CKD-EPI)AfAm (>60 ml/min/1.73 sqM) Est GFR (CKD-EPI)NonAf (>60 ml/min/1.73 sqM) Glucose (74-99) mg/dL Plasma Lactic Acid Isacc (0.7-2.0) mmol/L Calcium (8.4-10.2) mg/dL Total Bilirubin (0.2-1.3) mg/dL AST (17-59) U/L ALT (4-49) U/L Alkaline Phosphatase (38-126) U/L Troponin I <0.012 (0.000-0.034) ng/mL NT-Pro-B Natriuret Pep 244 pg/mL Total Protein (6.3-8.2) g/dL Albumin (3.5-5.0) g/dL Urine Color Yellow Urine Appearance Clear (Clear) Urine pH 7.5 (5.0-8.0) Ur Specific Savage 1.009 (1.001-1.035) Urine Protein Negative (Negative) Urine Glucose (UA) Negative (Negative) Urine Ketones Negative (Negative) Urine Blood Negative (Negative) Urine Nitrite Negative (Negative) Urine Bilirubin Negative (Negative) Urine Urobilinogen <2.0 (<2.0) mg/dL Ur Leukocyte Esterase Negative (Negative) Disposition Clinical Impression: Difficulty in urination, Dyspnea Disposition: HOME SELF-CARE Condition: Stable Instructions (If sedation given, give patient instructions): Urinary Retention in Men (ED) Additional Instructions: Please return to the Emergency Department if symptoms worsen or any other concerns. Follow-up with urology as discussed. Also follow up with your primary care physician. Is patient prescribed a controlled substance at d/c from ED?: No Referrals: Anamaria Faria MD [Primary Care Provider] - 1-2 days Getachew Mauricio MD [STAFF PHYSICIAN] - 1-2 days Time of Disposition: 10:30
[2020-10-19 09:02] LABS: Basophils # (A) 0.1 k/uL (0-0.2); Basophils % (A) 1 %; Eosinophils # (A) 0.7 k/uL (0-0.7); Eosinophils % (A) 11 %; HCT 36.5 % (39.0-53.0); HGB 12.3 gm/dL (13.0-17.5); Lymphocytes # (A) 0.8 k/uL (1.0-4.8); Lymphocytes % (A) 14 %; MCH 28.2 pg (25.0-35.0); MCHC 33.6 g/dL (31.0-37.0); Mean Platelet Volume 6.7; Monocytes # (A) 0.6 k/uL (0-1.0); Monocytes % (A) 9 %; Neutrophils # (A) 3.9 k/uL (1.3-7.7); Neutrophils % (A) 63 %; Platelet Count 313 k/uL (150-450); RBC 4.35 m/uL (4.30-5.90); RDW 14.5 % (11.5-15.5); WBC 6.1 k/uL (3.8-10.6)
[2020-10-19 09:03] LABS: Appearance,Urine Clear (Clear); Bilirubin,Urine Negative (Negative); Blood,Urine Negative (Negative); Color,Urine Yellow; Glucose,Urine (UA) Negative (Negative); Ketones,Urine Negative (Negative); Leukocyte Esterase,Urine Negative (Negative); Nitrite,Urine Negative (Negative); PH, Urine 7.5 (5.0-8.0); Protein,Urine Negative (Negative); Specific Gravity,Urine 1.009 (1.001-1.035); Urobilinogen,Urine <2.0 mg/dL (<2.0)
--- NOTE | 2020-10-19 09:09 | XR ---
EXAMINATION TYPE: XR chest 2V DATE OF EXAM: 10/19/2020 COMPARISON: 01/21/2020 May 21, 2020. HISTORY: Dyspnea TECHNIQUE: Frontal and lateral views of the chest are obtained. FINDINGS: The lungs are hyperinflated with prominence of the interstitium, similar to the prior exam. No new la rge airspace disease, pneumothorax, pleural effusion or significant pulmonary edema is seen. Cardiomediastinal silhouette is unremarkable. There are degenerative changes in the bones with a right lower thoracic compression fracture which ap pears similar to the prior CT examination dated May 21, 2020. IMPRESSION: No significant change since prior examinations.
[2020-10-19 09:29] LABS: ALT 20 U/L (4-49); AST 43 U/L (17-59); African American GFR (CKD) >90 (>60 ml/min/1.73 sqM); Albumin 3.8 g/dL (3.5-5.0); Alkaline Phosphatase 116 U/L (38-126); Anion Gap 4 mmol/L; Blood Urea Nitrogen 13 mg/dL (9-20); Calcium 8.5 mg/dL (8.4-10.2); Carbon Dioxide 31 mmol/L (22-30); Chloride 96 mmol/L (98-107); Glucose 84 mg/dL (74-99); Non-African American GFR(CKD) 84 (>60 ml/min/1.73 sqM); Potassium 4.4 mmol/L (3.5-5.1); Sodium 131 mmol/L (137-145); Total Bilirubin 0.5 mg/dL (0.2-1.3); Total Protein 6.3 g/dL (6.3-8.2)
[2020-10-19 10:54] VITALS: BP 158/91; PULSE 70; RESP 20
== END 2020-10-19 11:13 | disposition home or self-care (01) ==
LOC: EC 07:55
DX: R06.02 Shortness of breath (principal); R39.198 Other difficulties with micturition; I48.91 Unspecified atrial fibrillation; J44.9 Chronic obstructive pulmonary disease, unspecified; Z87.891 Personal history of nicotine dependence; Z79.01 Long term (current) use of anticoagulants; Z79.51 Long term (current) use of inhaled steroids
CPT/HCPCS: 36415; 51798; 71046; 80053; 81003; 83605; 83880; 84484; 85025; 93005; 99285

== ENCOUNTER 2020-12-04 13:26 | Emergency (ER) | payer MEDICARE ==
[2020-12-04 13:32] VITALS: BP 107/64; PULSE 71; RESP 16; TEMP 98
[2020-12-04] MEDS: ACETAMINOPHEN TAB 325 MG TAB PO STA (14:26)
--- NOTE | 2020-12-04 14:28 | ED ---
Upper Extremity HPI - General Chief Complaint: Extremity Injury, Upper Stated Complaint: arm pain Source: patient, family Mode of arrival: ambulatory Limitations: no limitations - History of Present Illness Initial Comments: 84-year-old white male presents to the emergency room alert and oriented 4 with his grandson, complaining of right biceps swelling after heavy lifting yes terday. Patient states he felt a pop and has had pain ever since. He he does have full range of motion however he is inability to hold a gallon of milk even his increasing or painful. Patient states has had chronic shoulder pain as well with limited range of motion. He states he's been taking Tylenol with some relief. Denies any traumatic injuries. Patient has not had any Tylenol today. He is on herbal oxygen for COPD. MD Complaint: Injury to:: right, arm -: days(s) (Upper1) Severity scale (1-10): 7 Improves With: medication (Some relief with Tylenol) Worsens With: movement of extremity (Her lifting) Context: other (Dictating) Associated Symptoms: denies other symptoms - Related Data Home Medications Medication Instructions Recorded Confirmed Flecainide [Tambocor] 50 mg PO Q12HR 09/27/17 10/19/20 Warfarin [Coumadin] 5 mg PO W/SUPPER 09/27/17 10/19/20 diphenhydrAMINE [Benadryl] 25 mg PO Q4H PRN 09/27/17 10/19/20 Niacinamide 500 mg PO DAILY 01/19/20 10/19/20 Acetaminophen [Tylenol] 500 mg PO Q4H PRN 05/21/20 10/19/20 Multivitamins, Thera [Multivitamin 1 tab PO DAILY 05/21/20 10/19/20 (formulary)] Albuterol Sulfate [Albuterol 2 puff INHALATION RT-QID PRN 10/19/20 10/19/20 Sulfate Hfa] Doxycycline Hyclate [Vibramycin] 100 mg PO BID 10/19/20 10/19/20 Ipratropium-Albuterol Nebulize 3 ml INHALATION RT-QID 10/19/20 10/19/20 [Duoneb 0.5 mg-3 mg/3 ml Soln] predniSONE 1 mg PO DAILY 10/19/20 10/19/20 predniSONE 5 mg PO DAILY 10/19/20 10/19/20 Allergies Allergy/AdvReac Type Severity Reaction Status Date / Time No Known Allergies Allergy Verified 12/04/20 13:30 Review of Systems ROS Statement: Those systems with pertinent positive or pertinent negative responses have been documented in the HPI. ROS Other: All systems not noted in ROS Statement are negative. Past Medical History Past Medical History: Atrial Fibrillation, COPD, Respiratory Disorder Additional Past Medical History / Comment(s): Ascending thoracic aortic aneurysm measuring 4.8 cm in size, advanced COPD, left lower lobe mass measuring 3.4 x 3.3 cm in size History of Any Multi-Drug Resistant Organisms: None Reported Past Surgical History: Adenoidectomy, Hernia Repair, Tonsillectomy Additional Past Surgical History / Comment(s): ULCER REPAIR- 35 YEARS AGO, cataract bilateral Past Anesthesia/Blood Transfusion Reactions: No Reported Reaction Past Psychological History: No Psychological Hx Reported Smoking Status: Former smoker Past Alcohol Use History: Rare Past Drug Use History: None Reported - Past Family History Mother Family Medical History: Cancer Additional Family Medical History / Comment(s): from [place] (stomach) Father Family Medical History: Myocardial Infarction ([place]) Additional Family Medical History / Comment(s): passes away from aneurysm General Exam Limitations: no limitations General appearance: alert, in no apparent distress, cachectic Head exam: Present: atraumatic, normocephalic, normal inspection Eye exam: Present: normal appearance, PERRL, EOMI, other (Bilateral cataracts). Absent: scleral icterus, conjunctival injection, periorbital swelling ENT exam: Present: normal exam, normal oropharynx, mucous membranes moist Neck exam: Present: normal inspection, full ROM. Absent: tenderness, meningismus, lymphadenopathy, thyromegaly Respiratory exam: Present: normal lung sounds bilaterally. Absent: respiratory distress, wheezes, rales, rhonchi, stridor, accessory muscle use Cardiovascular Exam: Present: regular rate, normal rhythm, normal heart sounds. Absent: systolic murmur, diastolic murmur, rubs, gallop, clicks GI/Abdominal exam: Present: soft, normal bowel sounds. Absent: distended, tenderness, guarding, rebound, rigid Extremities exam: Present: tenderness (Right upper extremity and shoulder), normal capillary refill. Absent: pedal edema, joint swelling Right Shoulder Exam: Present: tenderness. Absent: full ROM (Pain with abduction or extension), swelling, abrasion, laceration, ecchymosis, deformity, crepitus, dislocation, erythema, tenderness over AC joint Upper Arm exam: Present: tenderness, swelling (swelling at bicep) Elbow exam: Present: normal inspection. Absent: tenderness Forearm Wrist exam: Present: normal inspection. Absent: tenderness Hand Wrist exam: Present: normal inspection. Absent: tenderness Vascular: Present: normal capillary refill, radial pulse. Absent: vascular compromise Back exam: Present: normal inspection, full ROM. Absent: tenderness, CVA tenderness (R), CVA tenderness (L), muscle spasm, paraspinal tenderness, vertebral tenderness, rash noted Neurological exam: Present: alert, oriented X3, CN II-XII intact Psychiatric exam: Present: normal affect, normal mood Skin exam: Present: warm, dry, intact, normal color. Absent: rash Course Vital Signs 12/04/20 13:30 Temperature 98.0 F Pulse Rate 71 Respiratory 16 Rate Blood Pressure 107/64 O2 Sat by Pulse 100 Oximetry Medical Decision Making - Medical Decision Making Patient felt a snap in his right bicep yesterday with some tenderness to palpation now which is consistent with a bicep tear. Patient also has chronic shoulder issues and he'll be referred to orthopedics for both issues. He was given Tylenol in the emergency room and Tylenol 3 take home pack. Case was discussed with Dr. Pederson patient placed in a sling. He'll be directed to return if any worsening pain. Disposition Clinical Impression: Biceps muscle tear, Shoulder pain Disposition: HOME SELF-CARE Condition: Good Instructions (If sedation given, give patient instructions): Shoulder Pain (ED), Arm Pain (ED) Additional Instructions: Use sling for the next 7 days. Do not sleep with the sling in place. Follow-up with orthopedics next week. Tylenol as needed for pain. Return to the emergency room with increasing pain or worsening symptoms. Is patient prescribed a controlled substance at d/c from ED?: No Referrals: Anamaria Faria MD [Primary Care Provider] - 1-2 days Bennie Salter DO [Doctor of Osteopathic Medicine] - 1-2 days Time of Disposition: 14:58
[2020-12-04] MEDS: ACET/COD 300 MG/30 MG STARTER PACK 6 TAB BTL PO STA (15:05)
== END 2020-12-04 15:10 | disposition home or self-care (01) ==
LOC: EC 13:26
DX: S46.211A Strain of muscle, fascia and tendon of other parts of biceps, right arm, initial encounter (principal); J44.9 Chronic obstructive pulmonary disease, unspecified; I48.91 Unspecified atrial fibrillation; Z87.891 Personal history of nicotine dependence; Z79.52 Long term (current) use of systemic steroids; Z79.01 Long term (current) use of anticoagulants; Z79.51 Long term (current) use of inhaled steroids; X50.0XXA Overexertion from strenuous movement or load, initial encounter
CPT/HCPCS: 99283

== ENCOUNTER → 2020-12-10 | Outpatient (CLI) | payer MEDICARE ==
[2020-12-10 11:19] LABS: African American GFR (CKD) >90 (>60 ml/min/1.73 sqM); Blood Urea Nitrogen 16 mg/dL (9-20); Non-African American GFR(CKD) 82 (>60 ml/min/1.73 sqM)
--- NOTE | 2020-12-10 12:42 | CT ---
EXAMINATION TYPE: CT angio chest DATE OF EXAM: 12/10/2020 12:31 PM COMPARISON: 05/21/2020 HISTORY: Thoracic Aortic Aneurysm without rupture CT DLP: 434 mGycm Automated exposure control for dose reduction was used. CONTRAST: CTA scan of the thorax is performed without and with IV Contrast, patient injected with 100 mL of Iso michel 370, pulmonary embolism protocol. . FINDINGS: LUNGS: Diffuse emphysematous changes are noted. No pneumothorax. Biapical pleural thickening. Patchy areas of subsegmental consolidation seen bilaterally greater on the left most typical of atelectasis or scar. Peribronchial wall thickening and changes of bronchiectasis are noted bilaterally. Dominate lower lobes. This MEDIASTINUM: There is satisfactory enhancement of the pulmonary artery and its branches, there is no CT evidence for pulmonary embolism. There are no greater than 1 cm hilar or mediastinal lymph nodes. Coronary artery calcifications are noted. Thoracic aorta: The ascending aorta has a maximal dimension of 4.8 x 4.7 cm and previously had a maximal dimension of 4.8 cm. The proximal thoracic aorta measures 3.9 cm in greatest dimension and stable from prior exam. There i s atherosclerotic change of aorta. OTHER: Surgical change in the epigastric region. Hypertrophic and degenerative changes of the spine. Chronic appearing compression fractures involving the thoracic spine and thoracolumbar junction navya lar to the prior exams. Left periaortic and retroperitoneal soft tissue fullness most likely in the b asis of opacified bowel. There does appear to be findings suggestive an aneurysm involving the abdomi nal aorta measuring 3.5 cm IMPRESSION: 1. Stable thoracic aortic aneurysm. 2. Stable nodular subsegmental consolidation left lung base which is nonspecific. Although neoplasm n ot excluded to the inflammatory changes are most likely. 3. There appears to be a abdominal aortic aneurysm with the proximal aorta measuring 3.5 cm. Consider correlation with abdominal CT for further evaluation. Retroperitoneal periaortic soft tissue fullnes s on the left may represent unopacified bowel loops rather than adenopathy this could also be correla sherry with CT scan. There is retroperitoneal soft tissue fullness likely related to unopacified bowel.
== END | disposition home or self-care (01) ==
LOC: RADCTMAIN 10:32
PROVIDERS: ATTEND Thoracic Surgery (Cardiothoracic Vascular Surgery)
DX: I71.2 Thoracic aortic aneurysm, without rupture (principal); J98.4 Other disorders of lung
CPT/HCPCS: 82565; 84520; 71275; 36415; Q9967

== ENCOUNTER → 2020-12-18 | Outpatient (CLI) | payer MEDICARE ==
--- NOTE | 2020-12-18 13:19 | US ---
EXAMINATION TYPE: US extremity nonvasc mass RT DATE OF EXAM: 12/18/2020 COMPARISON: NONE CLINICAL HISTORY: R22.41 Localized swelling, mass and lump, right lo. Patient has palpable right lower inner leg. Scanning was performed directly over palpable, right lowe r inner leg. There is an ovoid hypoechoic mass that measures 2.3 x 0.7 x 1.9 cm. There is not any vas cularity associated with this lesion. It appears to be in the skin line. Deep dermal-based fairly well-defined hypoechoic lesion with local mass effect on muscle corresponds to site of palpable abnormality, favor benign etiology especially if nonpainful. IMPRESSION: As above. Consider repeat imaging if the lesion becomes painful or is felt to enlarge
== END | disposition home or self-care (01) ==
LOC: RADUSWWP 12:40
PROVIDERS: ATTEND Family Medicine
DX: L98.9 Disorder of the skin and subcutaneous tissue, unspecified (principal)

== ENCOUNTER → 2021-12-30 | Outpatient (CLI) | payer MEDICARE ==
[2021-12-30 13:12] LABS: African American GFR (CKD) >90 (>60 ml/min/1.73 sqM); Blood Urea Nitrogen 18 mg/dL (9-20); Non-African American GFR(CKD) 79 (>60 ml/min/1.73 sqM)
--- NOTE | 2021-12-30 14:51 | CT ---
EXAMINATION TYPE: CT angio chest CT DLP: 343 mGycm, Automated exposure control for dose reduction was used. DATE OF EXAM: 12/30/2021 2:37 PM COMPARISON: CTA chest 12/10/2020. CLINICAL INDICATION:Male, 86 years old with history of I71.2 THORACIC AORTIC ANEURYSM; TECHNIQUE/CONTRAST: CTA scan of the thorax is performed before and after IV contrast, patient injected with 100 mL of Iso michel 370. MIP and 3-D images are created and reviewed. FINDINGS: Lungs/Pleura: Biapical parenchymal scarring. Diffuse emphysematous changes redemonstrated. Slightly m ore prominent left lower lobe patchy consolidation. Airway: Large airways are patent. Peribronchial wall thickening and changes of bronchiectasis are not ed bilaterally. Heart: Heart is within normal limits for size.. No pericardial effusion. Coronary artery calcificatio ns. Vasculature: Stable ascending aortic aneurysm measuring 4.7 x 4.7 cm, previously 4.8 x 4.7 cm. Athero sclerotic calcification of the aorta and its branches. The aortic root measures up to 4 cm in diamete r. The descending thoracic aorta measures up to 3.0 cm. Findings suggest suggestive of an aneurysm in volving the suprarenal abdominal aorta measuring up to 3.5 cm. Mediastinum: No evidence of adenopathy. Musculoskeletal: No acute osseous abnormalities. Degenerative changes of the visualized spine. Simila r chronic appearing wedge compression deformities of the thoracic spine. Soft Tissues: Unremarkable. Lower neck: No significant findings. Upper Abdomen: Post surgical changes in the epigastric region with surgical clips. IMPRESSION: 1. Stable thoracic aortic aneurysm. 2. Increased nodular consolidation within the left lower lobe when compared to prior examination. Thi s may represent an infectious/inflammatory process with neoplasm not excluded. Attention on follow-up . 3. COPD changes. 4.There again appears to be an abdominal aortic aneurysm within the proximal aorta measuring up to 3. 5 cm which is stable. Consider correlation with abdominal CT for further evaluation.
== END | disposition home or self-care (01) ==
LOC: RADCTMAIN 12:35
PROVIDERS: ATTEND Family Medicine
DX: J44.9 Chronic obstructive pulmonary disease, unspecified (principal); I71.2 Thoracic aortic aneurysm, without rupture; I71.4 Abdominal aortic aneurysm, without rupture
CPT/HCPCS: 82565; 84520; 71275; 36415; Q9967

== ENCOUNTER → 2022-03-07 | Outpatient (CLI) | payer MEDICARE ==
[2022-03-07 13:22] VITALS: BP 102/74; PULSE 108; RESP 18; TEMP 97.8
--- NOTE | 2022-03-07 15:11 | P.PAINPG ---
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 Pain level is as high as 9/10 in intensity, constant, localized in the BL, L>R, cervical spine, achy in character w shooting towards the BL side of head, L>R. Pain has unknown provocative factors. Pain is alleviated with massages at home, medications (Tylenol), ice, topical, repositioning and rest. Interventional pain procedures completed include L shoulder intraarticular injection Patient is currently on Coumadin for aFib from Dr Cardenas Patient denies any side effects of the medication(s), denies excessive drowsiness or sleepiness, denies suicidal ideation and reports that the current pain medication is helping to control the pain and improve activities of daily living. Patient denies any motor or sensory deficits. Patient denies any fever or night sweats, denies any change in the bowel movements or urination. Physical Examination: -Constitutional: Cooperative. Not in acute distress . - Neurologic: Cranial nerve II to XII intact. No focal neurological deficits. - Psychatric: Alert & oriented x 3. Matching mood & appropriate affect. Judgment and insight intact. - Musculoskeletal: Cervical spine: +BL C2-C3, C3-C4 facet TTP Muscle bulk/ tone/ strength in the bilateral upper extremities normal Vertebral body tenderness to palpation over Spurling test positive Distraction test positive Facet loading test positive Thoracic spine Muscle bulk / tone/ strength in the bilateral paraspinal muscles normal Vertebral body tender to palpation over Facet loading test positive Lumbar spine: Motor bulk/ tone/ strength lower extremities , thigh and legs : 5/5 Deep tendon reflexes : Normal Knee Jerk. Normal Ankle Jerk . Vertebral body tenderness to palpation over Lumbar Facet Loading Test positive Straight Leg Raise: positive at 30 degrees right side/ left side Gaenslen's Test positive Sacral spine : Severe tenderness over the Sacroiliac joint: right side / left side Range of motion: Flexion of the lumbar spine <60 degrees Range of motion: Extension of the lumbar spine <20 degrees Gaenslen's Test positive Jamie's Test positive Derrick test: positive right side / left side Thigh Thrust Test Sacral Thrust Test Assessment and plan: Chronic neck pain secondary to cervical degenerative disc disease facet arthropathy without myelopathy, BL cervicogenic CHUA Recommendation of BL MBB C2-C3, C3-C4 #1. May need a series of injections, up until RFA, for optimal pain relief. Risks, benefits of procedure discussed and pt verbalized understanding. Admits to anticoagulant use or medical history of diabetes. Protocol for discontinuation / continuation of medications debora procedure discussed. Medical Clearance sent to Dr Cardenas. All patient questions answered I have spent less than 30 minutes on patient care today. Dr Garcia was available by phone for the evaluation of this patient. The time was used to review the medical records including relevant urine studies and Prescription history (MAPs), review of the available imaging, evaluation and examination of the patient, coordination of care with the medical staff and if applicable referring physicians, as well as creation of the medical record PQRS Narrative: Smoking Status Current every day smoker Hx Alcohol Use (MH) Yes Home Medications: Ambulatory Orders Flecainide [Tambocor] 50 mg PO Q12HR 09/27/17 Warfarin [Coumadin] 5 mg PO W/SUPPER 09/27/17 diphenhydrAMINE [Benadryl] 25 mg PO Q4H PRN 09/27/17 Niacinamide 500 mg PO DAILY 01/19/20 Acetaminophen [Tylenol] 500 mg PO Q4H PRN 05/21/20 Multivitamins, Thera [Multivitamin (formulary)] 1 tab PO DAILY 05/21/20 Albuterol Sulfate [Albuterol Sulfate Hfa] 2 puff INHALATION RT-QID PRN 10/19/20 Doxycycline Hyclate [Vibramycin] 100 mg PO BID 10/19/20 Ipratropium-Albuterol Nebulize [Duoneb 0.5 mg-3 mg/3 ml Soln] 3 ml INHALATION RT-QID 10/19/20 predniSONE 1 mg PO DAILY 10/19/20 predniSONE 5 mg PO DAILY 10/19/20 Controlled Substance Measures - Controlled Substance Measures Is patient prescribed a controlled substance at discharge?: No
== END ==
LOC: PNWHC3 12:05
PROVIDERS: ATTEND Specialist
DX: M50.30 Other cervical disc degeneration, unspecified cervical region (principal); G89.29 Other chronic pain; Z79.01 Long term (current) use of anticoagulants; E11.9 Type 2 diabetes mellitus without complications; Z79.4 Long term (current) use of insulin
CPT/HCPCS: 99211

== ENCOUNTER → 2022-04-04 | Outpatient (CLI) | payer MEDICARE ==
[2022-04-04 22:38] LABS: C-Peptide 1.22 ng/mL (0.81-3.85)
== END | disposition home or self-care (01) ==
LOC: LABWHC1 08:16
PROVIDERS: ATTEND Internal Medicine
DX: E16.2 Hypoglycemia, unspecified (principal)
CPT/HCPCS: 36415; 82533; 82941; 83036; 84681; 86337

== ENCOUNTER 2022-04-12 10:22 | Day surgery (SDC) | payer MEDICARE ==
[2022-04-08 10:43] VITALS: BMI 19.0
[2022-04-12 10:37] VITALS: RESP 18; TEMP 97
[2022-04-12] MEDS ORDERED: LACTATED RINGERS 1,000 ML IV ONE ×2 (10:43)
[2022-04-12 10:47] LABS: Glucose,Whole Blood 87 mg/dL (70-110)
[2022-04-12 11:22] LABS: Prothrombin Time 10.4 sec (9.0-12.0)
[2022-04-12] MEDS ORDERED: ROPIVACAINE 5 MG/ML 20 ML AMPULE ONE (11:29)
[2022-04-12] MEDS ORDERED: DEXAMETHASONE SOD PHOSPHATE 10 MG/ML 1 ML VIAL ONE (11:29)
[2022-04-12] MEDS ORDERED: MIDAZOLAM 2 MG/2 ML VIAL ONE (11:29)
[2022-04-12] MEDS ORDERED: fentaNYL (PF) 50 MCG/ML 2 ML AMP ONE (11:29)
--- NOTE | 2022-04-12 11:56 | P.PCN ---
Date of Procedure: 04/12/22 Description of Procedure: PREOPERATIVE DIAGNOSIS: Cervical spondylosis without myelopathy, and occipital neuralgia POSTOPERATIVE DIAGNOSIS: Cervical spondylosis without myelopathy, and occipital neuralgia PROCEDURE : Bilateral cervical C3 -C3, and C3-C4 medial branch block under fluoroscopic guidance. SURGEON: Rachael Potter [employer] SUPERVISOR: None ANESTHESIA: Local anesthesia , and IV sedation : Versed 0.5 +0.5 mg, and fentanyl 25+25g Sedation supervision start time: 03 13 Sedation supervision end time: EBL: None Image: Fluoroscopic image saved to electronic medical records PROCEDURE INDICATION: The patient with neck pain returns here for diagnostic medial branch block, failed with the conservative therapy. PROCEDURE DESCRIPTION: The patient was seen and identified in the preoperative area. Risks, benefits, complications, and alternatives were discussed with the patient; the patient agreed to proceed with the procedure and signed the consent. Vital signs were stable. Standard ASA monitoring applied. Patient was taken to the OR and time out was completed. The patient was placed in the prone position on the procedure table and cervical area was prepped and draped in the usual sterile fashion. Critical pause was taken. Vital signs were closely monitored during the procedure. Using anteroposterior fluoroscopic with 15 cephalad tilt Waists of C2, C3, and C4 identified and marked with the sterile marker. Skin and subcutaneous tissue injected with a total of 3 mL of lidocaine 1% using a 27-gauge 1-1/2 inch needle. Using a 22-gauge 3-1/2 inch spinal needles 3. Each spinal needle entered to the corresponding waists. Using cross-table lateral fluoroscopy, the centroid of the trapezoid of C2, C3, and C4, . [place] were guided by fluoroscopy to the centroid of the trapezoid of C2, C3, and C4. After negative aspiration for blood and CSF, 0.5 mL of block solution injected at each level. The block solution containing 2 ml of 0.5% bupivacaine preservative free and 10 mg dexamethasone (3ml total mixture) . Denver were removed intact. Entire procedure repeated on the left side . Denver were withdrawn intact. Skin was cleansed and bandages were applied. COMPLICATIONS: None. COMMENTS: DISPOSITION/PLAN: The patient was placed in a supine position and transferred to the recovery area in a stable condition for observation and was discharged from the recovery room after meeting discharge criteria. Home discharge instructions given to the patient by the staff. The patient was reexamined prior to discharge. The patient will schedule a repeat procedure in 2-4 weeks.
[2022-04-12] MEDS ORDERED: IV FLUID CONTINUATION 1,000 ML IV ONE (12:00)
[2022-04-12] MEDS ORDERED: LACTATED RINGERS 1,000 ML IV SCH (12:00)
--- NOTE | 2022-04-12 12:13 | FL ---
EXAMINATION TYPE: FL guided pain mgmt statistic DATE OF EXAM: 04/12/2022 HISTORY: Fluoroscopy time 12 seconds of fluoroscopy provided. IMPRESSION: 1. Fluoroscopy time.
[2022-04-12 12:17] VITALS: BP 152/89; PULSE 69
== END 2022-04-12 12:45 | disposition home or self-care (01) ==
LOC: ORPAIN 10:22
DX: M47.812 Spondylosis without myelopathy or radiculopathy, cervical region (principal); M54.81 Occipital neuralgia; J44.9 Chronic obstructive pulmonary disease, unspecified; I48.91 Unspecified atrial fibrillation; I71.20 Thoracic aortic aneurysm, without rupture, unspecified; Z90.89 Acquired absence of other organs; Z98.49 Cataract extraction status, unspecified eye; Z79.51 Long term (current) use of inhaled steroids; Z79.83 Long term (current) use of bisphosphonates; Z79.01 Long term (current) use of anticoagulants; Z79.899 Other long term (current) drug therapy; Z98.890 Other specified postprocedural states
CPT/HCPCS: 99152; 99153; 64491 ×2; 85610; 64490; J2250; J1100; J3010; J2795

== ENCOUNTER → 2022-04-27 | Outpatient (CLI) | payer MEDICARE ==
[2022-04-27 12:50] VITALS: BP 120/73; PULSE 95; RESP 18; TEMP 98
--- NOTE | 2022-04-27 13:43 | P.PN ---
Subjective Progress Note Date: 04/27/22 A 86 yr old male w at side with a history of severe and chronic neck pain x 1 yr secondary to cervical degenerative disc diseases, cervical spondylosis with facet arthropathy without myelopathy and cervicogenic CHUA presents today for neck pain , achy in character w shooting towards the BL side of head, L>R. Pain has unknown provocative factors. Pain is alleviated with massages at home, medications (Tylenol), ice, topical, repositioning and rest. Recently we did diagnostic medial branch block cervical area C2-3 , C34, and after reviewing the pain diary after the block that showed the patient had no benefit from the diagnostic medial branch block Interventional pain procedures completed include L shoulder intraarticular injection Patient is currently on Coumadin for aFib from Dr Cardenas Patient denies any side effects of the medication(s), denies excessive drowsiness or sleepiness, denies suicidal ideation and reports that the current pain medication is helping to control the pain and improve activities of daily living. Patient denies any motor or sensory deficits. Patient denies any fever or night sweats, denies any change in the bowel movements or urination. Physical Examination: -Constitutional: Cooperative. Not in acute distress . - Neurologic: Cranial nerve II to XII intact. No focal neurological deficits. - Psychatric: Alert & oriented x 3. Matching mood & appropriate affect. Judgment and insight intact. - Musculoskeletal: Cervical spine: +BL C2-C3, C3-C4 facet TTP Muscle bulk/ tone/ strength in the bilateral upper extremities normal Vertebral body tenderness to palpation over Spurling test positive Distraction test positive Facet loading test positive Assessment and plan: Chronic neck pain secondary to cervical degenerative disc disease facet arthropathy without myelopathy, BL cervicogenic CHUA She had negative response to BL MBB C2-C3, C3-C4 Discussed with the patient the option of doing cervical epidural steroid injection versus medication management, he prefer to try medication, he is already use Tylenol 500 daily at bedtime when necessary, recommend Tylenol 650 every 6 hours when necessary And patient continued to use Fedora 5/325 when necessary he already had prescription from his primary care, patient will try this treatment plan for 2-3 weeks and he will follow up in the pain clinic and if he continued to have pain then will schedule him for cervical epidural steroid injections at C7- T1 Smoking Status Current every day smoker Hx Alcohol Use (MH) Yes Home Medications: Ambulatory Orders Flecainide [Tambocor] 50 mg PO Q12HR 09/27/17 Warfarin [Coumadin] 5 mg PO W/SUPPER 09/27/17 diphenhydrAMINE [Benadryl] 25 mg PO Q4H PRN 09/27/17 Niacinamide 500 mg PO DAILY 01/19/20 Acetaminophen [Tylenol] 500 mg PO Q4H PRN 05/21/20 Multivitamins, Thera [Multivitamin (formulary)] 1 tab PO DAILY 05/21/20 Albuterol Sulfate [Albuterol Sulfate Hfa] 2 puff INHALATION RT-QID PRN 10/19/20 Doxycycline Hyclate [Vibramycin] 100 mg PO BID 10/19/20 Ipratropium-Albuterol Nebulize [Duoneb 0.5 mg-3 mg/3 ml Soln] 3 ml INHALATION RT-QID 10/19/20 predniSONE 1 mg PO DAILY 10/19/20 predniSONE 5 mg PO DAILY 10/19/20 Controlled Substance Measures - Controlled Substance Measures Is patient prescribed a controlled substance at discharge?: No Objective - Vital Signs Vital signs: Vital Signs Temp 98.0 F 04/27/22 12:42 Pulse 95 04/27/22 12:42 Resp 18 04/27/22 12:42 BP 120/73 04/27/22 12:42 Pulse Ox 96 04/27/22 12:42 FiO2 Intake & Output 04/26/22 04/27/22 04/27/22 18:59 06:59 18:59 Weight 65.771 kg
== END ==
LOC: PNWHC3 12:22
PROVIDERS: ATTEND Specialist
DX: M50.30 Other cervical disc degeneration, unspecified cervical region (principal); G44.86 Cervicogenic headache; F17.200 Nicotine dependence, unspecified, uncomplicated
CPT/HCPCS: 99211

== ENCOUNTER → 2022-05-12 | Outpatient (CLI) | payer MEDICARE ==
[2022-05-12 12:49] VITALS: BP 126/71; PULSE 64; RESP 16; TEMP 98.1
--- NOTE | 2022-05-12 14:45 | P.PAINPG ---
PQRS Measure Charge Sheet Comment: A 86 yr old male w at side with a history of severe and chronic neck pain secondary to cervicogenic CHUA and occipital neuralgia presents today for evaluation s/p BL facet block fo the medial branches C2-C3, C3-C4. Pt states he experienced 100% x 2 days s/p procedure. Pain level is provoked at 8/10 in i ntensity, constant, localized in the cervical spine, throbbing, achy in character w shooting towards the scalp. Pain is provoked by hyperextension, rotation, lateral flexion. Pain is alleviated with home exercise regimen, ice, repositioning and rest. Interventional pain procedures completed include BL MBB C2-C4 Patient is currently on Imboden, Tylenol ES Patient denies any side effects of the medication(s), denies excessive drowsiness or sleepiness, denies suicidal ideation and reports that the current pain medication is helping to control the pain and improve activities of daily living. Patient denies any motor or sensory deficits. Patient denies any fever or night sweats, denies any change in the bowel movements or urination. Physical Examination: -Constitutional: Cooperative. Not in acute distress . - Neurologic: Cranial nerve II to XII intact. No focal neurological deficits. - Psychatric: Alert & oriented x 3. Matching mood & appropriate affect. Judgment and insight intact. - Musculoskeletal: Cervical spine: Muscle bulk/ tone/ strength in the bilateral upper extremities normal Vertebral body tenderness to palpation over Spurling test positive Distraction test positive Facet loading test positive TTP over BL C2-C3, C3-C4 facets Thoracic spine Muscle bulk / tone/ strength in the bilateral paraspinal muscles normal Vertebral body tender to palpation over Facet loading test positive Lumbar spine: Motor bulk/ tone/ strength lower extremities , thigh and legs : 5/5 Deep tendon reflexes : Normal Knee Jerk. Normal Ankle Jerk . Vertebral body tenderness to palpation over Lumbar Facet Loading Test positive Straight Leg Raise: positive at 30 degrees right side/ left side Gaenslen's Test positive Sacral spine : Severe tenderness over the Sacroiliac joint: right side / left side Range of motion: Flexion of the lumbar spine <60 degrees Range of motion: Extension of the lumbar spine <20 degrees Gaenslen's Test positive Derrick test: positive right side / left side Thigh Thrust Test Sacral Thrust Test Assessment and plan: Chronic neck pain secondary to cervicogenic CHUA and occipital neuralgia Recommendation of BL facet blocks of the medial branches C2-C3, C3-C4 #2. May need a series of injections, up until RFA, optimal pain relief. Risks, benefits of procedure discussed and pt verbalized understanding. Admits to anticoagulant use or medical history of diabetes. Protocol for discontinuation/continuation of medications debora procedure discussed. Imboden 5/325mg #60 w 1 RF. Narcotic/ opiate agreement signed. Use, side effects and adverse reaction discussed. Patient verbalized understanding. All patient questions answered I have spent less than 30 minutes on patient care today. Dr Garcia was available by phone for the evaluation of this patient. The time was used to review the medical records including relevant urine studies and Prescription history (MAPs), review of the available imaging, evaluation and examination of the patient, coordination of care with the medical staff and if applicable referring physicians, as well as creation of the medical record - Pain Location Neck Non-Pharmacological Interventions: Home Exercise, Inactivity, Position/Reposition, Stretching Pharmacological Interventions: Block, PRN Medication, Topical Medication PQRS Narrative: Smoking Status Current every day smoker Hx Alcohol Use (MH) Yes Home Medications: Ambulatory Orders Flecainide [Tambocor] 50 mg PO Q12HR 09/27/17 Warfarin [Coumadin] 5 mg PO Q48H 09/27/17 diphenhydrAMINE [Benadryl] 25 mg PO Q12HR PRN 09/27/17 Acetaminophen [Tylenol] 1,000 - 1,500 mg PO QID 05/21/20 Albuterol Sulfate [Albuterol Sulfate Hfa] 2 puff INHALATION DIRECTED PRN 10/19/20 predniSONE 3 mg PO DAILY 10/19/20 Albuteral Updraft Tx 1 dose INHALATION DIRECTED 04/08/22 Warfarin [Coumadin] 2.5 mg PO Q48H 04/08/22 Controlled Substance Measures - Controlled Substance Measures Is patient prescribed a controlled substance at discharge?: Yes When asked, does pt state using other controlled substances?: No If prescribed controlled substance>3 days was MAPS reviewed?: Yes If Rx opioid, was Start Talking consent form obtained?: Yes Was information provided regarding opioid addiction?: Yes
== END ==
LOC: PNWHC3 12:21
PROVIDERS: ATTEND Specialist
DX: M54.81 Occipital neuralgia (principal); G44.86 Cervicogenic headache; Z79.01 Long term (current) use of anticoagulants; F17.200 Nicotine dependence, unspecified, uncomplicated
CPT/HCPCS: 99211

== ENCOUNTER → 2022-07-29 | Day surgery (SDC) | payer MEDICARE ==
[~2022-07-29] MED LIST changes: -IV FLUID CONTINUATION 1,000 ML IV ONE; +IV FLUID CONTINUATION 400 ML IV ONE; +LIDOCAINE 1% (10MG/ML) FOR IV START INTRADERMA PRN; +ROPIVACAINE 5 MG/ML 20 ML AMPULE ONE; -ROPIVACAINE 5MG/ML 20ML VIAL ONE
[2022-07-29 12:26] VITALS: RESP 20; TEMP 98.6
[2022-07-29 13:04] LABS: INR 1.3 (<1.2); Prothrombin Time 13.2 sec (9.0-12.0)
--- NOTE | 2022-07-29 14:08 | P.PCN ---
Date of Procedure: 07/29/22 Procedure(s) Performed: PREOPERATIVE DIAGNOSIS: Cervical spondylosis with Facet Arthropathy without myelopathy. POSTOPERATIVE DIAGNOSIS: Cervical spondylosis with Facet Arthropathy without myelopathy. PROCEDURES: Radiofrequency thermocoagulationBilateral C2 , C3, C4, medial branch with Fluroscopy [place](fluoroscopy was available in Radiology department ) (to denervate the facet joint at bilateral C2-3 ,C3- 4 ) ANESTHESIA: Monitored anesthesia care as per anesthesia department. EBL: Minimal PROCEDURE INDICATION: The patient with neck pain secondary to cervical arthropathy who had more than 50% relief of her pain with previous diagnostic cervical medial branch block. PROCEDURE DESCRIPTION / TECHNIQUE: The patient was seen and identified in the preoperative area. Risks, benefits, complications, and alternatives were discussed with the patient, the patient agreed to proceed with the procedure and signed the consent. IV was started. Vital signs remained stable throughout the procedure. Patient was taken to the OR and time out was completed. The patient was placed in the lateral position on the procedure table ( right side up ). The cervical area was prepped and draped in the usual sterile fashion. Critical pause was taken. Vital signs were closely monitored during the procedure. Conscious sedation was used during the procedure to decrease patients anxiety. Using cross-table lateral fluoroscopy, the centroid of the trapezoid of right C2 ,C3, C4, were identified, marked, and localized with 1% lidocaine. Subsequently, a 20 -mw radiofrequency cannula with a 10-mm active tip was advanced guided by fluoroscopy to the centroid of the trapezoid of right C2 C3, C4,. Needle tip position was confirmed at the centroid of the trapezoids of right C2 ,C3, C4, with anteroposterior fluoroscopy. Each site then underwent sensory testing at 50 Hz and 0 to 1 volt and motor testing at 2 Hz and 0 to 3 volt with local stimulation, but no radicular symptoms down the arm. Thereafter each sites underwent radiofrequency thermocoagulation at 80 degrees celsius for 90 seconds after injecting 0.5 ml of PF Ropivacaine 0.5 %. After thermocoagulation, 1 ml of the block solution containing Depo-Medrol 20 mg and 5 mL of preservative-free normal saline was injected at the right C2 ,C3, C4, levels after negative aspiration of CSF and blood and with no paresthesias. Cannulas were retracted while injecting lidocaine 1% until the needle is out. Then the exact same procedure was done for the left side unaided the left-sided RFA at C2 ,C3 ,C4 (patient was placed in lateral position left side )Skin was cleansed and bandages were applied. COMPLICATIONS: No acute complications. DISPOSITION / PLANS: The patient was placed in a supine position and transferred to the recovery area in a stable condition for observation and was discharged from the recovery room after meeting discharge criteria. Home discharge instructions given to the patient by the staff. The patient was reexamined prior to discharge. The patient will schedule a follow up in the clinic in 2-4 weeks. Patient placed in lateral position because patient had severe COPD, and he was not able to lay prone position he has difficulty breathing when he is in prone position,
[2022-07-29 14:36] VITALS: BP 180/62; PULSE 100
--- NOTE | 2022-07-29 16:31 | FL ---
EXAMINATION TYPE: FL guided pain mgmt statistic DATE OF EXAM: 07/29/2022 CLINICAL HISTORY: Neck pain. TECHNIQUE: Fluoroscopy. COMPARISON: None. FINDINGS: Fluoroscopic guidance was provided during pain relief procedure performed by Dr. Garcia . A total of 21 seconds of fluoroscopic time was utilized during the procedure and 5 spot images are acquired. Images acquired shows needle localization at multiple levels in the neck. IMPRESSION: As Above.
== END ==
LOC: ORPAIN 11:53
PROVIDERS: ATTEND Specialist
DX: M47.812 Spondylosis without myelopathy or radiculopathy, cervical region (principal); I48.91 Unspecified atrial fibrillation; J44.9 Chronic obstructive pulmonary disease, unspecified; F17.200 Nicotine dependence, unspecified, uncomplicated; Z79.51 Long term (current) use of inhaled steroids; Z79.01 Long term (current) use of anticoagulants; Z79.899 Other long term (current) drug therapy
CPT/HCPCS: 85610; 64633; 64634 ×2; J2250; J1030; J3010; J2795

== ENCOUNTER → 2022-08-10 | Outpatient (CLI) | payer MEDICARE ==
[2022-08-10 12:26] LABS: African American GFR (CKD) >90 (>60 ml/min/1.73 sqM); Blood Urea Nitrogen 11 mg/dL (9-20); Non-African American GFR(CKD) 88 (>60 ml/min/1.73 sqM)
--- NOTE | 2022-08-10 15:26 | CT ---
EXAMINATION TYPE: CT abdomen pelvis wo/w con CT DLP: 578.9 mGycm, Automated exposure control for dose reduction was used. DATE OF EXAM: 08/10/2022 1:52 PM COMPARISON: Pet/CT 12/20/2019, CT chest 12/30/2021. CLINICAL INDICATION:Male, 86 years old with history of K59.00 Constipation; c/o constipation TECHNIQUE: Axial CT of the abdomen and pelvis. Sagittal and coronal reformats were created on a Two[employer] workstation. Contrast used:100 mL of Isovue 300 without and with IV Contrast, Oral contrast used: with Oral Contrast FINDINGS: LOWER CHEST: Persistent posttreatment changes to the left lower lung. ABDOMEN LIVER: Unremarkable GALLBLADDER AND BILE DUCTS: Unremarkable. PANCREAS: Unremarkable. SPLEEN: Unremarkable. ADRENAL GLANDS: Unremarkable. KIDNEYS AND URETERS: No evidence of hydronephrosis or renal calculus. The ureters are unremarkable. PELVIS BLADDER: Unremarkable REPRODUCTIVE: Unremarkable. ABDOMEN & PELVIS STOMACH AND BOWEL: No evidence of bowel obstruction. PERITONEUM/RETROPERITONEUM: No evidence of pneumoperitoneum or free fluid. Anasarca of the mesentery and positive intradermal fat limiting evaluation. VASCULATURE: No evidence of aortic aneurysm. Atherosclerosis of the abdominal aorta and arterial vasc ulature. There is aneurysmal infrarenal dilation up to 3.5 cm. MUSCULOSKELETAL: No acute osseous abnormalities. Moderate disc degeneration changes are present throu ghout the thoracolumbar spine. L1 compression deformity with at least 25-50% height loss. Complete di sc space narrowing at L5-S1. Multilevel disc bulging throughout the visualized spine. LYMPH NODES: No gross evidence for lymphadenopathy. SOFT TISSUE/ABDOMINAL WALL: Unremarkable IMPRESSION: 1. There is mild to moderate stool throughout the colon. No definitive convincing evidence for const ipation. 2. No acute intraparenchymal process given limitations of this non-IV contrast examination. 3. Infrarenal fusiform dilation of the abdominal aorta. 4. Posttreatment changes of left lower lobe. Attention on follow-up CT chest imaging.
== END | disposition home or self-care (01) ==
LOC: RADCTMAIN 11:36
PROVIDERS: ATTEND Internal Medicine Gastroenterology
DX: I71.43 Infrarenal abdominal aortic aneurysm, without rupture (principal); K59.00 Constipation, unspecified
CPT/HCPCS: 82565; 84520; 74178; 36415; Q9967

== ENCOUNTER → 2022-08-10 | Outpatient (CLI) | payer MEDICARE ==
[2022-08-10 12:07] VITALS: BP 122/76; PULSE 100; RESP 18; TEMP 97.6
--- NOTE | 2022-08-10 14:46 | P.PAINPG ---
PQRS Measure Charge Sheet Comment: A 86 yr old male with a history of severe and chronic neck pain secondary to cervical DDD and spondylosis with facet arthropathy without myelopathy presents today for evaluation s/p BL RFA C2-C3, C3-C4. Pt states he experienced 55 % pain relief s/p procedure. Pt no longer complains of head or neck pain, but of tingling. Tingling is constant, localized in the cervical spine, achy in character w shooting towards the R side of head and face. Tingling has no provocative factors. Pain is alleviated with heat, ice, injections, medications and rest. Interventional pain procedures completed include BL RFA C2-C4 (Jun 2022) Patient is currently on Tyl Patient denies any side effects of the medication(s), denies excessive drowsiness or sleepiness, denies suicidal ideation and reports that the current pain medication is helping to control the pain and improve activities of daily living. Patient denies any motor or sensory deficits. Patient denies any fever or night sweats, denies any change in the bowel movements or urination. Physical Examination: -Constitutional: Cooperative. Not in acute distress . - Neurologic: Cranial nerve II to XII intact. No focal neurological deficits. - Psychatric: Alert & oriented x 3. Matching mood & appropriate affect. Judgment and insight intact. - Musculoskeletal: Cervical spine: Muscle bulk/ tone/ strength in the bilateral upper extremities normal Vertebral body tenderness to palpation over Spurling test positive Distraction test positive Facet loading test positive TTP Thoracic spine Muscle bulk / tone/ strength in the bilateral paraspinal muscles normal Vertebral body tender to palpation over Facet loading test positive TTP Lumbar spine: Motor bulk/ tone/ strength lower extremities , thigh and legs : 5/5 Deep tendon reflexes : Normal Knee Jerk. Normal Ankle Jerk . Vertebral body tenderness to palpation over Lumbar Facet Loading Test positive Straight Leg Raise: positive at 30 degrees right side/ left side Gaenslen's Test positive Sacral spine : Severe tenderness over the Sacroiliac joint: right side / left side Range of motion: Flexion of the lumbar spine <60 degrees Range of motion: Extension of the lumbar spine <20 degrees Gaenslen's Test positive R / L Derrick test: positive right side / left side Thigh Thrust Test positive R / L Sacral Thrust Test positive R/ L Assessment and plan: Chronic neck pain secondary to cervical DDD, spondylosis with facet arthropathy without myelopathy Recommendation of medication management. Lyrica 25mg to take at bedtime daily w 1 RF. Risks, benefits of procedure discussed and pt verbalized understanding. Admits to anticoagulant use or medical history of diabetes. Protocol for discontinuation/ continuation of medications debora procedure discussed. All questions answered. I have spent less than 30 minutes on patient care today. Dr Garcia was available by phone for the evaluation of this patient. The time was used to review the medical records including relevant urine studies and Prescription history (MAPs), review of the available imaging, evaluation and examination of the patient, coordination of care with the medical staff and if applicable referring physicians, as well as creation of the medical record - Pain Location Right Upper Neck Non-Pharmacological Interventions: Heat, Ice Pharmacological Interventions: Block, Epidural, PRN Medication PQRS Narrative: Smoking Status Current every day smoker Hx Alcohol Use (MH) Yes Home Medications: Ambulatory Orders Flecainide [Tambocor] 50 mg PO Q12HR 09/27/17 Warfarin [Coumadin] 5 mg PO Q48H 09/27/17 diphenhydrAMINE [Benadryl] 25 mg PO Q12HR PRN 09/27/17 Acetaminophen [Tylenol] 1,000 mg PO QID 05/21/20 Albuterol Sulfate [Albuterol Sulfate Hfa] 2 puff INHALATION DIRECTED PRN 10/19/20 Albuteral Updraft Tx 1 dose INHALATION DIRECTED 04/08/22 Warfarin [Coumadin] 2.5 mg PO Q48H 04/08/22 Pregabalin [Lyrica] 25 mg PO BID 30 Days #60 cap 08/10/22 Controlled Substance Measures - Controlled Substance Measures Is patient prescribed a controlled substance at discharge?: Yes When asked, does pt state using other controlled substances?: Yes If prescribed controlled substance>3 days was MAPS reviewed?: Yes If Rx opioid, was Start Talking consent form obtained?: Yes If opioid is for acute pain is fill amount 7 days or less?: No Was information provided regarding opioid addiction?: Yes
== END ==
LOC: PNWHC3 10:25
PROVIDERS: ATTEND Specialist
DX: M50.30 Other cervical disc degeneration, unspecified cervical region (principal); M47.812 Spondylosis without myelopathy or radiculopathy, cervical region; G89.29 Other chronic pain; F17.200 Nicotine dependence, unspecified, uncomplicated
CPT/HCPCS: 99211

== ENCOUNTER → 2022-10-05 | Outpatient (CLI) | payer MEDICARE ==
[2022-10-05 12:18] VITALS: BP 122/82; PULSE 104; RESP 18; TEMP 97.7
--- NOTE | 2022-10-05 14:50 | P.PAINPG ---
PQRS Measure Charge Sheet Comment: A 86 yr old male w at side with a history of severe and chronic neck pain secondary to cervicogenic CHUA and R occipital neuralgia presents today for R neck/ headaches. Pt states his pain level is 6 /10 in intensity, localized in the cervical spine, achy in character w shooting towards the R side of head and face. Tingling has no provocative factors. Pain is alleviated with heat, ice, injections, medications, topical and rest. Interventional pain procedures completed include BL RFA C2-C4 (Jun 2022) Patient is currently on Tyl Patient denies any side effects of the medication(s), denies excessive drowsiness or sleepiness, denies suicidal ideation and reports that the current pain medication is helping to control the pain and improve activities of daily living. Patient denies any motor or sensory deficits. Patient denies any fever or night sweats, denies any change in the bowel movements or urination. Physical Examination: -Constitutional: Cooperative. Not in acute distress . - Neurologic: Cranial nerve II to XII intact. No focal neurological deficits. - Psychatric: Alert & oriented x 3. Matching mood & appropriate affect. Judgment and insight intact. - Musculoskeletal: Cervical spine: Muscle bulk/ tone/ strength in the bilateral upper extremities normal Vertebral body tenderness to palpation over Spurling test positive Distraction test positive Facet loading test positive TTP Thoracic spine Muscle bulk / tone/ strength in the bilateral paraspinal muscles normal Vertebral body tender to palpation over Facet loading test positive TTP Lumbar spine: Motor bulk/ tone/ strength lower extremities , thigh and legs : 5/5 Deep tendon reflexes : Normal Knee Jerk. Normal Ankle Jerk . Vertebral body tenderness to palpation over Lumbar Facet Loading Test positive Straight Leg Raise: positive at 30 degrees right side/ left side Gaenslen's Test positive Sacral spine : Severe tenderness over the Sacroiliac joint: right side / left side Range of motion: Flexion of the lumbar spine <60 degrees Range of motion: Extension of the lumbar spine <20 degrees Gaenslen's Test positive R / L Derrick test: positive right side / left side Thigh Thrust Test positive R / L Sacral Thrust Test positive R/ L Assessment and plan: Chronic neck pain secondary to cervical DDD, spondylosis with facet arthropathy without myelopathy Pt no longer wants medication management as it gives him mental cloudiness. Would like to think about treatment for occipital neuralgia before moving forward. All questions answered. I have spent less than 30 minutes on patient care today. Dr Garcia was available by phone for the evaluation of this patient. The time was used to review the medical records including relevant urine studies and Prescription history (MAPs), review of the available imaging, evaluation and examination of the patient, coordination of care with the medical staff and if applicable referring physicians, as well as creation of the medical record PQRS Narrative: Smoking Status Current every day smoker Hx Alcohol Use (MH) Yes Home Medications: Ambulatory Orders Flecainide [Tambocor] 50 mg PO Q12HR 09/27/17 Warfarin [Coumadin] 5 mg PO Q48H 09/27/17 diphenhydrAMINE [Benadryl] 25 mg PO Q12HR PRN 09/27/17 Acetaminophen [Tylenol] 1,000 mg PO QID 05/21/20 Albuterol Sulfate [Albuterol Sulfate Hfa] 2 puff INHALATION DIRECTED PRN 10/19/20 Albuteral Updraft Tx 1 dose INHALATION DIRECTED 04/08/22 Warfarin [Coumadin] 2.5 mg PO Q48H 04/08/22 Pregabalin [Lyrica] 25 mg PO BID 30 Days #60 cap 08/10/22 Controlled Substance Measures - Controlled Substance Measures Is patient prescribed a controlled substance at discharge?: No
== END ==
LOC: PNWHC3 10:49
PROVIDERS: ATTEND Specialist
DX: M50.31 Other cervical disc degeneration, high cervical region (principal); G89.29 Other chronic pain; M47.812 Spondylosis without myelopathy or radiculopathy, cervical region; F17.200 Nicotine dependence, unspecified, uncomplicated
CPT/HCPCS: 99211

== ENCOUNTER 2023-03-21 12:22 | Inpatient (IN) | payer MEDICARE ==
--- NOTE | 2023-03-21 12:53 | ED ---
SOB HPI - General Source: patient, RN notes reviewed Mode of arrival: wheelchair Limitations: no limitations <Bennie Daniel - Last Filed: 03/21/23 12:53> - General Source: patient, RN notes reviewed Mode of arrival: wheelchair Limitations: no limitations <Anupam Pederson - Last Filed: 03/21/23 17:20> - General Chief Complaint: Shortness of Breath Stated Complaint: SOB Time Seen by Provider: 03/21/23 12:53 - History of Present Illness Initial Comments: 87-year-old male presents emergency Department chief complaint of hemoptysis. Patient states that he has been coughing up bloody sputum. Patient states he does see Dr. Zapata is oxygen dependent COPD. Patient denies any history of any blood clots he does have known aortic aneurysms. (Bennie Daniel) Patient is a pleasant 87-year-old male presenting to the emergency Department with difficulty breathing. Onset of symptoms was a couple of days ago. Patient is coughing of blood. Patient does have cough. No fevers. Patient does have some leg swelling however this is chronic and unchanged. No chest pain. Patient is on anticoagulation. (Anupam Pederson) - Related Data Home Medications Medication Instructions Recorded Confirmed Flecainide [Tambocor] 50 mg PO Q12HR 09/27/17 09/01/22 Warfarin [Coumadin] 5 mg PO Q48H 09/27/17 09/01/22 diphenhydrAMINE [Benadryl] 25 mg PO Q12HR PRN 09/27/17 09/01/22 Acetaminophen [Tylenol] 1,000 mg PO QID 05/21/20 09/01/22 Albuterol Sulfate [Albuterol 2 puff INHALATION DIRECTED PRN 10/19/20 09/01/22 Sulfate Hfa] Albuteral Updraft Tx 1 dose INHALATION DIRECTED 04/08/22 09/01/22 Warfarin [Coumadin] 2.5 mg PO Q48H 04/08/22 09/01/22 Previous Rx's Medication Instructions Recorded Pregabalin [Lyrica] 25 mg PO BID 30 Days #60 cap 08/10/22 Allergies Allergy/AdvReac Type Severity Reaction Status Date / Time No Known Allergies Allergy Verified 03/21/23 12:48 Review of Systems ROS Other: All systems not noted in ROS Statement are negative. <Bennie Daniel - Last Filed: 03/21/23 12:53> ROS Other: All systems not noted in ROS Statement are negative. Constitutional: Denies: fever Eyes: Denies: eye pain ENT: Denies: ear pain Respiratory: Reports: as per HPI, cough, dyspnea, hemoptysis Cardiovascular: Denies: chest pain Endocrine: Reports: fatigue Gastrointestinal: Denies: abdominal pain Genitourinary: Denies: dysuria Musculoskeletal: Denies: back pain Skin: Denies: rash Neurological: Denies: weakness <Anupam Pederson - Last Filed: 03/21/23 17:20> ROS Statement: Those systems with pertinent positive or pertinent negative responses have been documented in the HPI. 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 History of Any Multi-Drug Resistant Organisms: None Reported Past Surgical History: Adenoidectomy, Hernia Repair, Tonsillectomy Additional Past Surgical History / Comment(s): ULCER REPAIR- 35 YEARS AGO, cataract bilateral Past Anesthesia/Blood Transfusion Reactions: No Reported Reaction Past Psychological History: No Psychological Hx Reported Smoking Status: Former smoker Past Alcohol Use History: Rare Past Drug Use History: None Reported - Past Family History Mother Family Medical History: Cancer Additional Family Medical History / Comment(s): from [place] (stomach) Father Family Medical History: Myocardial Infarction ([place]) Additional Family Medical History / Comment(s): passes away from aneurysm <Bennie Daniel - Last Filed: 03/21/23 12:53> General Exam Limitations: no limitations <Bennie Daniel - Last Filed: 03/21/23 12:53> Limitations: no limitations General appearance: alert, in no apparent distress Head exam: Present: normocephalic Eye exam: Present: normal appearance Neck exam: Present: normal inspection Respiratory exam: Present: rales (More so right sided), accessory muscle use Cardiovascular Exam: Present: regular rate, normal rhythm GI/Abdominal exam: Present: soft. Absent: tenderness Extremities exam: Present: pedal edema (+2 bilateral). Absent: calf tenderness Neurological exam: Present: alert Psychiatric exam: Present: normal affect, normal mood Skin exam: Present: normal color <Anupam Pederson - Last Filed: 03/21/23 17:20> - General Exam Comments Initial Comments: Visual Physical Exam Vital signs reviewed General: Well-appearing, nontoxic, no acute distress. Head: Normocephalic, atraumatic Eyes: PERRLA, EOMI ENT: Airway patent Chest: Nonlabored breathing Skin: No visual rash, normal skin tone Neuro: Alert and oriented 3 Musculoskeletal: No gross abnormalities (Bennie Daniel) Course <Anupam Pederson - Last Filed: 03/21/23 17:20> Vital Signs 03/21/23 03/21/23 12:48 16:24 Temperature 98.7 F 98.2 F Pulse Rate 62 160 H Respiratory 18 20 Rate Blood Pressure 108/73 103/71 O2 Sat by Pulse 90 L 95 Oximetry - Reevaluation(s) Reevaluation #1: 03/21/23 17:19 There is concern for sepsis diagnosed at 1700. Blood culture and lactic acid and IV antibiotics involving ordered. Fluid bolus provided secondary to normal lactic acid and history of CHF. (Anupam Pederosn) Medical Decision Making <Bennie Daniel - Last Filed: 03/21/23 12:53> - Lab Data Result diagrams: 03/21/23 16:03 <Anupam Pederson - Last Filed: 03/21/23 17:20> - Medical Decision Making I performed a quick note portion of this chart signed Bennie MOTA (Bennie Daniel) Was pt. sent in by a medical professional or institution (LORRAINE Braun, ASSISTANT PROFESSOR OF THEATER, urgent care, hospital, or longterm...) When possible be specific @ -No Did you speak to anyone other than the patient for history (EMS, parent, family, police, friend...)? What history was obtained from this source @ -Family is present and helps confirm history including history of COPD and CHF. Did you review nursing and triage notes (agree or disagree)? Why? @ -I reviewed and agree with nursing and triage notes Were old charts reviewed (outside hosp., previous admission, EMS record, old EKG, old radiological studies, urgent care reports/EKG's, longterm records)? Report findings @ -Previous x-ray reviewed Differential Diagnosis (chest pain, altered mental status, abdominal pain women, abdominal pain men, vaginal bleeding, weakness, fever, dyspnea, syncope, headache, dizziness, GI bleed, back pain, seizure, CVA, palpatations, mental health, musculoskeletal)? @ -Differential Dyspnea: Coronary syndrome, arrhythmia, tamponade, asthma, COPD, pulmonary embolism, pneumonia, pneumothorax, pulmonary effusion, anaphylaxis, diabetic ketoacidosis, flailed chest, pulmonary contusion, diaphragmatic rupture, anemia, neuromuscular, this is not meant to be an all-inclusive list. EKG interpreted by me (3pts min.). @ -Atrial flutter with a rate of 136. QRS 93. QT 279. QTc 358. Left axis. Lateral ST depression. X-rays interpreted by me (1pt min.). @ -Chest x-ray shows multifocal pneumonia, mostly right midlung CT interpreted by me (1pt min.). @ -None done U/S interpreted by me (1pt. min.). @ -None done What testing was considered but not performed or refused? (CT, X-rays, U/S, labs)? Why? @ -None What meds were considered but not given or refused? Why? @ -None Did you discuss the management of the patient with other professionals (professionals i.e. , PA, ASSISTANT PROFESSOR OF THEATER, lab, RT, psych nurse, sr. social media & mobile manager, combined rail operator, teacher, commissioned police officer, family independence case manager)? Give summary @ -Case was discussed with Dr. Todd who will admit his patient. Was smoking cessation discussed for >3mins.? @ -No Was critical care preformed (if so, how long)? @ -31 minutes.. Time Were there social determinants of health that impacted care today? How? (Homelessness, low income, unemployed, alcoholism, drug addiction, transportation, low edu. Level, literacy, decrease access to med. care, senior care, rehab)? @ -No Was there de-escalation of care discussed even if they declined (Discuss DNR or withdrawal of care, Hospice)? DNR status @ -No What co-morbidities impacted this encounter? (DM, HTN, Smoking, COPD, CAD, Cancer, CVA, ARF, Chemo, Hep., AIDS, mental health diagnosis, sleep apnea, morbid obesity)? @ - with underlying COPD and CHF Was patient admitted / discharged? Hospital course, mention meds given and route, prescriptions, significant lab abnormalities, going to OR and other pertinent info. @ -Patient will be admitted for multifocal pneumonia. Blood culture and lactic acid and IV antibiotics will be started. Undiagnosed new problem with uncertain prognosis? @ -No Drug Therapy requiring intensive monitoring for toxicity (Heparin, Nitro, Insulin, Cardizem)? @ -Patient started on Cardizem drip and will need monitoring. Were any procedures done? @ -No Diagnosis/symptom? @ -Multifocal pneumonia, atrial flutter with RVR, sepsis Acute, or Chronic, or Acute on Chronic? @ -Acute, acute, acute Uncomplicated (without systemic symptoms) or Complicated (systemic symptoms)? @ -Complicated with hypoxia Side effects of treatment? @ -No Exacerbation, Progression, or Severe Exacerbation? @ -No Poses a threat to life or bodily function? How? (Chest pain, [place], [place], pneumonia, PE, COPD, DKA, ARF, appy, cholecystitis, CVA, Diverticulitis, Homicidal, Suicidal, threat to staff... and all critical care pts) @ -Potential hypoxia and threat to life (Anupam Pederson) - Lab Data Lab Results 03/21/23 03/21/23 03/21/23 Range/Units 16:03 16:03 16:03 WBC 16.8 H (3.8-10.6) k/uL RBC 4.72 (4.30-5.90) m/uL Hgb 12.7 L (13.0-17.5) gm/dL Hct 40.1 (39.0-53.0) % MCV 84.8 (80.0-100.0) fL MCH 26.9 (25.0-35.0) pg MCHC 31.8 (31.0-37.0) g/dL RDW 16.0 H (11.5-15.5) % Plt Count 385 (150-450) k/uL MPV 7.6 Neutrophils % 92 % Lymphocytes % 1 % Monocytes % 5 % Eosinophils % 0 % Basophils % 0 % Neutrophils # 15.5 H (1.3-7.7) k/uL Lymphocytes # 0.2 L (1.0-4.8) k/uL Monocytes # 0.9 (0-1.0) k/uL Eosinophils # 0.0 (0-0.7) k/uL Basophils # 0.0 (0-0.2) k/uL Anisocytosis Slight PT 45.9 H (10.0-12.5) sec INR 4.7 H (<1.2) APTT 43.8 H (22.0-30.0) sec Plasma Lactic Acid Isacc 1.8 (0.7-2.0) mmol/L Critical Care Time Critical Care Time: Yes Total Critical Care Time: 31 <Anupam Pederson - Last Filed: 03/21/23 17:20> Disposition <Bennie Daniel - Last Filed: 03/21/23 12:53> Is patient prescribed a controlled substance at d/c from ED?: No Time of Disposition: 16:53 <Anupam Pederson - Last Filed: 03/21/23 17:20> Clinical Impression: Multifocal pneumonia, Atrial flutter with rapid ventricular response Disposition: ADMITTED IP TO THIS HOSP Condition: Serious Referrals: Eugene Todd MD [Primary Care Provider] - 1-2 days
--- NOTE | 2023-03-21 13:19 | XR ---
EXAMINATION TYPE: XR chest 2V DATE OF EXAM: 03/21/2023 COMPARISON: 01/06/2023 CT HISTORY: 87-year-old male shortness of breath, difficulty breathing, spitting up blood TECHNIQUE: AP and lateral views FINDINGS: Leftward patient rotation alters the normal cardiomediastinal contours. Hyperinflation. Extensive airspace disease right mid lung and both lung bases with accompanying small effusions. Mild anterior wedging of 2 midthoracic vertebral bodies and couple in the lower thoracic spine is unchanged compatible with old injuries. IMPRESSION: COPD with new extensive multifocal pneumonia and trace pleural effusions. Follow-up to ensure clearan ce.
[2023-03-21] MEDS ORDERED: ACETAMINOPHEN TAB 500 MG TAB PO STA (16:38)
[2023-03-21 16:48] LABS: Anisocytosis Slight; Basophils % (A) 0 %; Eosinophils % (A) 0 %; HCT 40.1 % (39.0-53.0); HGB 12.7 gm/dL (13.0-17.5); Lymphocytes # (A) 0.2 k/uL (1.0-4.8); Lymphocytes % (A) 1 %; MCH 26.9 pg (25.0-35.0); MCHC 31.8 g/dL (31.0-37.0); MCV 84.8 fL (80.0-100.0); Mean Platelet Volume 7.6; Monocytes # (A) 0.9 k/uL (0-1.0); Monocytes % (A) 5 %; Neutrophils # (A) 15.5 k/uL (1.3-7.7); Neutrophils % (A) 92 %; Platelet Count 385 k/uL (150-450); RBC 4.72 m/uL (4.30-5.90); WBC 16.8 k/uL (3.8-10.6)
[2023-03-21] MEDS ORDERED: PNEUMONIA PROTOCOL UTILIZED 1 EACH MISC PO PRN (16:54)
[2023-03-21] MEDS ORDERED: methylPREDNISolone SOD SUCCI 125 MG/2 ML VIAL IV STA (16:54)
[2023-03-21] MEDS ORDERED: AZITHROMYCIN 500 MG in SODIUM CHLORIDE 0.9% 250 ML IVPB STA (16:54)
[2023-03-21] MEDS ORDERED: NALOXONE 0.4 MG/ML 1 ML VIAL IVP PRN (16:54)
[2023-03-21 16:58] LABS: INR 4.7 (<1.2); Partial Thromboplastin Time 43.8 sec (22.0-30.0); Prothrombin Time 45.9 sec (10.0-12.5)
[2023-03-21] MEDS: SODIUM CHLORIDE 0.9% 1,000 ML IV SCH (17:14)
[2023-03-21 17:25] LABS: ALT 25 U/L (4-49); AST 37 U/L (17-59); African American GFR (CKD) >90 (>60 ml/min/1.73 sqM); Albumin 3.3 g/dL (3.5-5.0); Alkaline Phosphatase 161 U/L (38-126); Anion Gap 12 mmol/L; Blood Urea Nitrogen 33 mg/dL (9-20); Calcium 8.6 mg/dL (8.4-10.2); Carbon Dioxide 25 mmol/L (22-30); Chloride 94 mmol/L (98-107); Glucose 116 mg/dL (74-99); Magnesium 2.1 mg/dL (1.6-2.3); Non-African American GFR(CKD) 78 (>60 ml/min/1.73 sqM); Potassium 4.9 mmol/L (3.5-5.1); Sodium 131 mmol/L (137-145); Total Bilirubin 0.7 mg/dL (0.2-1.3); Total Protein 6.3 g/dL (6.3-8.2)
[2023-03-21] MEDS: DILTIAZEM 125 MG in SODIUM CHLORIDE 0.9% 100 ML IV SCH (17:57)
[2023-03-21] MEDS: methylPREDNISolone SOD SUCCI 125 MG/2 ML VIAL IV SCH (18:01)
[2023-03-21] MEDS: IPRATROPIUM-ALBUTEROL 3 ML NEB INHALATION PRN (18:11)
[2023-03-21] MEDS ORDERED: diphenhydrAMINE 25 MG CAP PO PRN (19:57)
[2023-03-21] MEDS ORDERED: IPRATROPIUM-ALBUTEROL 3 ML NEB INHALATION SCH (20:00)
[2023-03-21] MEDS: IPRATROPIUM-ALBUTEROL 3 ML NEB INHALATION SCH (20:16)
[2023-03-21] MEDS: BUDESONIDE 1 MG/2 ML NEBU INHALATION SCH (20:17)
[2023-03-21] MEDS: FLECAINIDE 50 MG TAB PO SCH (20:58)
[2023-03-22] MEDS: methylPREDNISolone SOD SUCCI 125 MG/2 ML VIAL IV SCH ×5 (00:03→23:35)
[2023-03-22] MEDS: IPRATROPIUM-ALBUTEROL 3 ML NEB INHALATION PRN (00:25)
[2023-03-22] MEDS ORDERED: PHYTONADIONE ORAL 5 MG/5 ML ORAL.SYRG PO ONE (00:30)
--- NOTE | 2023-03-22 04:02 | P.CNPUL ---
History of Present Illness Consult date: 03/22/23 Requesting physician: Anupam Pederson Reason for consult: pneumonia Chief complaint: hemoptysis History of present illness: I am seeing this patient in new consultation today 03/22/2023 in the emergency room after presented with the chief complaints of hemoptysis and shortness of breath. Patient is a 87-year-old white male with past medical history significant for paroxysmal atrial fibrillation anticoagulated on warfarin, severe oxygen dependent COPD, thoracic aortic aneurysm, and left lower lobe lung mass. He does follow with Dr. Zapata in the pulmonary office for his COPD and lung mass. Patient presented to the emergency room yesterday afternoon with a chief complaint hemoptysis. He states that he's had bloody sputum mixed with mucus for approximately 1-1/2 days. Present symptoms associated mild shortness of breath and subjective fevers. Denies chest pain, heart palpitations, lightheadedness, or syncope. He does have some bilateral 3+ lower extremity edema. Patient does take warfarin on outpatient basis. His INR was supratherapeutic at 4.7 on arrival. heart rhythm is atrial flutter with rapid ventricular response, and the patient was started on Cardizem infusion at 5 mg per hour.patient is currently sitting up in bed, on 3 L/m nasal cannula, in no acute distress. Chest x-ray demonstrates extensive new multifocal infiltrates and trace pleural effusions. CBC demonstrates a leukocytosis with a WBC count of 16.8, hemoglobin 12.7, hematocrit 40.1, platelets 385. BMP shows sodium 131, potassium 4.9, chloride 94, serum bicarb 25, BUN 33, creatinine 0.80, glucose 116. normal saline is infusing at 50 ML's per hour. Lactic acid level I.8. Negative COVID-19.the patient is empirically started on antibiotics for community-acquired pneumonia including azithromycin and Rocephin. Currently afebrile. Also, started on DuoNeb's, budesonide inhalation, and IV Solu-Medrol. Patient is stable and nontoxic. He will be admitted to the cardiac stepdown unit once bed available. Review of Systems REVIEW OF SYSTEMS: CONSTITUTIONAL: Denies any recent significant weight loss or weight gain. EYES: Denies change in vision. EARS, NOSE, MOUTH, THROAT: Denies headaches, denies sore throat. CARDIOVASCULAR: Denies chest pain, palpitations or syncopal episodes. Admits chronic bilateral lower extremity swelling RESPIRATORY: Desee HPI GASTROINTESTINAL: Denies change in appetite, abdominal pain, nausea and vomiting. Admits diarrhea starting yesterday. Denies bleeding or dark tarry stools. GENITOURINARY: Denies hematuria, denies infections. MUSKULOSKELETAL: Denies pain, denies swelling. INTEGUMENTARY: Denies rash, denies eczema. NEUROLOGICAL: Denies recent memory loss, no recent seizure activity. PSYCHIATRIC: Denies anxiety, denies depression. HEMATOLOGIC/LYMPHATIC: Denies anemia, denies enlarged lymph node Past Medical History Past Medical History: Atrial Fibrillation, COPD, Respiratory Disorder Additional Past Medical History / Comment(s): Ascending thoracic aortic aneurysm measuring 4.8 cm in size, advanced COPD wears 4 liters 02 ATC, left lower lobe mass measuring 3.4 x 3.3 cm in size pt states gets full easily when eating and has constipation issues, takes Sauer MOM, has an appt with Dr Norris Recinos in July. History of Any Multi-Drug Resistant Organisms: None Reported Past Surgical History: Adenoidectomy, Hernia Repair, Tonsillectomy Additional Past Surgical History / Comment(s): ULCER REPAIR- 35 YEARS AGO, cataract bilateral Past Anesthesia/Blood Transfusion Reactions: No Reported Reaction Past Psychological History: No Psychological Hx Reported Smoking Status: Former smoker Past Alcohol Use History: Rare Past Drug Use History: None Reported - Past Family History Mother Family Medical History: Cancer Additional Family Medical History / Comment(s): from [place] (stomach) Father Family Medical History: Myocardial Infarction ([place]) Additional Family Medical History / Comment(s): passes away from aneurysm Medications and Allergies Home Medications Medication Instructions Recorded Confirmed Type Flecainide [Tambocor] 50 mg PO Q12HR 09/27/17 03/21/23 History Warfarin [Coumadin] 5 mg PO DAILY 09/27/17 03/21/23 History diphenhydrAMINE [Benadryl] 100 mg PO BID PRN 09/27/17 03/21/23 History Acetaminophen [Tylenol] 1,000 mg PO QID PRN 05/21/20 03/21/23 History Albuterol Sulfate [Albuterol 2 puff INHALATION RT-QID PRN 10/19/20 03/21/23 History Sulfate Hfa] Furosemide [Lasix] 20 mg PO DAILY 03/21/23 03/21/23 History Ipratropium-Albuterol Nebulize 3 ml INHALATION RT-QID 03/21/23 03/21/23 History [Duoneb 0.5 mg-3 mg/3 ml Soln] Multivitamins, Thera [Multivitamin 1 tab PO DAILY 03/21/23 03/21/23 History (formulary)] Spironolactone [Aldactone] 25 mg PO DAILY 03/21/23 03/21/23 History Triamcinolone 0.1% Cream [Kenalog 1 applicatio TOPICAL BID PRN 03/21/23 03/21/23 History 0.1% Cream] Allergies Allergy/AdvReac Type Severity Reaction Status Date / Time No Known Allergies Allergy Verified 03/21/23 12:48 Physical Exam Vitals: Vital Signs Temp Pulse Resp BP Pulse Ox 03/22/23 00:35 86 03/22/23 00:27 95 03/21/23 23:00 94 21 105/78 95 03/21/23 22:00 101 H 18 109/73 03/21/23 21:00 76 17 102/62 95 03/21/23 20:28 102 H 03/21/23 20:19 92 95 03/21/23 19:58 97.3 F L 104 H 18 95/65 95 03/21/23 19:00 112 H 24 111/66 95 03/21/23 18:30 112 H 24 116/94 95 03/21/23 18:27 122 H 03/21/23 18:15 128 H 28 H 108/88 91 L 03/21/23 18:00 123 H 24 100/68 95 03/21/23 17:30 131 H 20 118/70 90 L 03/21/23 16:24 98.2 F 160 H 20 103/71 95 03/21/23 12:48 98.7 F 62 18 108/73 90 L Intake and Output 03/21/23 03/21/23 03/22/23 14:59 22:59 06:59 Other: Weight 63.503 kg GENERAL EXAM: Alert, 87-year-old white male, comfortable in no apparent distress. HEAD: Normocephalic and atraumatic EYES: Normal reaction of pupils, equal size. NOSE: Clear with pink turbinates. THROAT: No erythema or exudates. NECK: No masses, no JVD. CHEST: No chest wall deformity. LUNGS: Equal air entry with scattered rhonchi. No wheezes, crackles, focal dullness. On 3 L/m nasal cannula. No conversational dyspnea or accessory muscle use.. CVS: S1 and S2 normal with no audible murmur, irregular rhythm. No extra heart sounds ABDOMEN: No hepatosplenomegaly, active bowel sounds, no guarding or rigidity. SPINE: No scoliosis or deformity SKIN: No rashes CENTRAL NERVOUS SYSTEM: No focal deficits, tone is normal in all 4 extremities. EXTREMITIES: There is bilateral lower extremity 3+ pitting edema. No clubbing, or cyanosis. Peripheral pulses are intact. Results - Laboratory Findings CBC and BMP: 03/21/23 16:03 03/21/23 16:03 PT/INR, D-dimer PT 45.9 sec (10.0-12.5) H 03/21/23 16:03 INR 4.7 (<1.2) H 03/21/23 16:03 Abnormal lab findings: Abnormal Labs 03/21/23 03/21/23 03/21/23 16:03 16:03 16:03 WBC 16.8 H Hgb 12.7 L RDW 16.0 H Neutrophils # 15.5 H Lymphocytes # 0.2 L PT 45.9 H INR 4.7 H APTT 43.8 H Sodium 131 L Chloride 94 L BUN 33 H Glucose 116 H Alkaline Phosphatase 161 H Albumin 3.3 L - Diagnostic Findings Chest x-ray: image reviewed Assessment and Plan Assessment: Acute on chronic dyspnea, secondary to multifocal community-acquired pneumonia and COPD exacerbation. Chest x-ray demonstrates new extensive multifocal pneumonia within the right midlung and bilateral bases with trace pleural effusions Severe chronic obstructive pulmonary disease, with an FEV1 37% of predicted Chronic hypoxemic respiratory failure, secondary to above Leukocytosis Atrial fibrillation/flutter with rapid ventricular rate, anticoagulated on warfarin and currently on Cardizem infusion Supratherapeutic INR, maintained on warfarin outpatient basis Small hemoptysis History of left lower lobe lung mass, followed-up on an outpatient basis. Ascending thoracic aortic aneurysm chronic ongoing tobacco dependence plan: Patient's medications, labs, chest x-ray reviewed Continue supplemental oxygen Patient was started on empiric antibiotics in the form of azithromycin and Rocephin. Blood and sputum cultures are pending. Urine legionella antigen pending. Negative COVID-19. Hold warfarin and given a one-time dose of vitamin K. If hemoptysis continues or worsens, we will obtain CT of the chest with contrast Started on a combination of DuoNeb's, budesonide, formoterol, and IV Solu- Medrol. Cardizem infusing at 5 mg per hour. Heart rhythm appears atrial fibrill ation/flutter on bedside monitor, rate better controlled around 90 bpm. BP normotensive. Patient will be admitted to the cardiac stepdown unit. We will continue to follow, and further recommendations are forthcoming I have personally seen and examined the patient, performed the documentation and the assessment and plan as written. Number of minutes spent on the visit:20 Time with Patient: Greater than 30
[2023-03-22 07:10] LABS: Anisocytosis Slight; Basophils % (A) 0 %; Eosinophils % (A) 0 %; HCT 35.4 % (39.0-53.0); HGB 11.4 gm/dL (13.0-17.5); Hypochromasia Slight; Lymphocytes # (A) 0.3 k/uL (1.0-4.8); Lymphocytes % (A) 2 %; MCH 27.6 pg (25.0-35.0); MCHC 32.3 g/dL (31.0-37.0); MCV 85.6 fL (80.0-100.0); Mean Platelet Volume 7.6; Monocytes # (A) 0.4 k/uL (0-1.0); Monocytes % (A) 4 %; Neutrophils % (A) 93 %; Platelet Count 391 k/uL (150-450); RBC 4.13 m/uL (4.30-5.90); RDW 16.1 % (11.5-15.5); WBC 11.8 k/uL (3.8-10.6)
[2023-03-22 07:22] LABS: INR 2.8 (<1.2)
[2023-03-22 07:25] LABS: ALT 27 U/L (4-49); AST 35 U/L (17-59); African American GFR (CKD) >90 (>60 ml/min/1.73 sqM); Albumin 2.7 g/dL (3.5-5.0); Alkaline Phosphatase 151 U/L (38-126); Anion Gap 7 mmol/L; Blood Urea Nitrogen 32 mg/dL (9-20); Calcium 8.2 mg/dL (8.4-10.2); Carbon Dioxide 28 mmol/L (22-30); Chloride 96 mmol/L (98-107); Glucose 122 mg/dL (74-99); Non-African American GFR(CKD) 83 (>60 ml/min/1.73 sqM); Potassium 4.4 mmol/L (3.5-5.1); Sodium 131 mmol/L (137-145); Total Bilirubin 0.4 mg/dL (0.2-1.3); Total Protein 5.4 g/dL (6.3-8.2)
--- NOTE | 2023-03-22 07:26 | XR ---
EXAMINATION TYPE: XR chest 2V DATE OF EXAM: 03/22/2023 COMPARISON: 03/21/2023 HISTORY: 87-year-old male with pneumonia TECHNIQUE: AP and lateral views FINDINGS: Heart normal size. Hyperinflation. Focal right midlung opacity. Slight improvement in right basilar o pacity. Ongoing small effusions and patchy left basilar density. IMPRESSION: COPD with continued multifocal pneumonia though with slightly improving aeration at the right base. T race pleural effusions persist.
[2023-03-22] MEDS: FORMOTEROL FUMARATE 20 MCG/2 ML NEBU INHALATION SCH ×2 (08:11→19:29)
[2023-03-22] MEDS: IPRATROPIUM-ALBUTEROL 3 ML NEB INHALATION SCH ×4 (08:11→19:29)
[2023-03-22] MEDS: BUDESONIDE 1 MG/2 ML NEBU INHALATION SCH ×2 (08:12→19:29)
[2023-03-22] MEDS: MULTIVITAMINS, THERA 1 EACH TAB PO SCH (08:14)
[2023-03-22] MEDS: SPIRONOLACTONE 25 MG TAB PO SCH (08:14)
[2023-03-22] MEDS: FLECAINIDE 50 MG TAB PO SCH ×2 (08:14→20:21)
[2023-03-22] MEDS: AZITHROMYCIN 500 MG TAB PO SCH (08:14)
[2023-03-22] MEDS ORDERED: RX INFO: IV CONTRAST WAS GIVEN 1 EACH MISC MISCELLANE PRN (08:19)
[2023-03-22] MEDS ORDERED: FUROSEMIDE 20 MG TAB PO SCH (09:00)
--- NOTE | 2023-03-22 09:14 | P.CRDCN ---
History of Present Illness Consult date: 03/22/23 Chief complaint: Shortness of breath History of present illness: The patient is an 87-year-old gentleman with chronic obstructive pulmonary disea se and chronic hypoxic respiratory failure on oxygen as well as history of thoracic aortic aneurysm and also history of paroxysmal atrial fibrillation and multiple comorbid conditions. The patient presented to the emergency department complaining of hemoptysis and increasing in the shortness of breath. He was diagnosed with COPD exacerbation. Also he was found to be in atrial fibrillation with rapid ventricular response. He is known to have paroxysmal atrial fibrillation on anticoagulation was Coumadin as well as type IC antiarrhythmic medication with the flecainide and he states he has been compliant with all of his medications. When he presented he was in atrial fibrillation with rapid ventricular response and he was started on Cardizem IV and continues to be on Cardizem IV at 5 mg per hour. His heart rate is around 100 bpm. He remains in atrial fibrillation. His INR was supratherapeutic at 4.7 when he presented. INR today is 2.8. The patient is known to have left upper lobe mass and he is in process of having possible computed tomography scan for further clarification. On examination he does have diminished breathing sounds bilaterally with a regular rhythm and systolic murmur at the right and upper sternal border. Assessment COPD exacerbation Lung mass currently is under investigation Hemoptysis Supratherapeutic INR Paroxysmal atrial fibrillation Atrial fibrillation with RVR Multiple comorbid conditions Plan Agree about holding Coumadin Continue monitoring the INR on daily basis Further workup regarding the mass in the chest The COPD to be managed by the pulmonary team Obtain an echocardiogram was Doppler Follow-up with the patient Past Medical History Past Medical History: Atrial Fibrillation, COPD, Respiratory Disorder Additional Past Medical History / Comment(s): Ascending thoracic aortic aneurysm measuring 4.8 cm in size, advanced COPD wears 4 liters 02 ATC, left lower lobe mass measuring 3.4 x 3.3 cm in size pt states gets full easily when eating and has constipation issues, takes Sauer MOM, has an appt with Dr Norris Recinos in July. History of Any Multi-Drug Resistant Organisms: None Reported Past Surgical History: Adenoidectomy, Hernia Repair, Tonsillectomy Additional Past Surgical History / Comment(s): ULCER REPAIR- 35 YEARS AGO, cataract bilateral Past Anesthesia/Blood Transfusion Reactions: No Reported Reaction Past Psychological History: No Psychological Hx Reported Smoking Status: Former smoker Past Alcohol Use History: Rare Past Drug Use History: None Reported - Past Family History Mother Family Medical History: Cancer Additional Family Medical History / Comment(s): from [place] (stomach) Father Family Medical History: Myocardial Infarction ([place]) Additional Family Medical History / Comment(s): passes away from aneurysm Medications and Allergies Home Medications Medication Instructions Recorded Confirmed Type Flecainide [Tambocor] 50 mg PO Q12HR 09/27/17 03/21/23 History Warfarin [Coumadin] 5 mg PO DAILY 09/27/17 03/21/23 History diphenhydrAMINE [Benadryl] 100 mg PO BID PRN 09/27/17 03/21/23 History Acetaminophen [Tylenol] 1,000 mg PO QID PRN 05/21/20 03/21/23 History Albuterol Sulfate [Albuterol 2 puff INHALATION RT-QID PRN 10/19/20 03/21/23 Hist ory Sulfate Hfa] Furosemide [Lasix] 20 mg PO DAILY 03/21/23 03/21/23 History Ipratropium-Albuterol Nebulize 3 ml INHALATION RT-QID 03/21/23 03/21/23 History [Duoneb 0.5 mg-3 mg/3 ml Soln] Multivitamins, Thera [Multivitamin 1 tab PO DAILY 03/21/23 03/21/23 History (formulary)] Spironolactone [Aldactone] 25 mg PO DAILY 03/21/23 03/21/23 History Triamcinolone 0.1% Cream [Kenalog 1 applicatio TOPICAL BID PRN 03/21/23 03/21/23 History 0.1% Cream] Allergies Allergy/AdvReac Type Severity Reaction Status Date / Time No Known Allergies Allergy Verified 03/21/23 12:48 Physical Exam Vitals: Vital Signs Temp Pulse Resp BP Pulse Ox 03/22/23 08:38 84 03/22/23 08:30 80 03/22/23 08:29 80 03/22/23 08:15 86 03/22/23 08:00 98.5 F 89 16 110/54 90 L 03/22/23 06:49 97.6 F 82 16 101/68 95 03/22/23 05:00 85 21 100/62 98 03/22/23 03:00 89 25 H 103/61 94 L 03/22/23 01:00 88 18 101/68 96 03/22/23 00:35 86 03/22/23 00:27 95 03/22/23 00:00 86 21 111/76 95 03/21/23 23:14 89 20 103/70 95 03/21/23 23:00 94 21 105/78 95 03/21/23 22:00 101 H 18 109/73 03/21/23 21:00 76 17 102/62 95 03/21/23 20:28 102 H 03/21/23 20:19 92 95 03/21/23 19:58 97.3 F L 104 H 18 95/65 95 03/21/23 19:00 112 H 24 111/66 95 03/21/23 18:30 112 H 24 116/94 95 03/21/23 18:27 122 H 03/21/23 18:15 128 H 28 H 108/88 91 L 03/21/23 18:00 123 H 24 100/68 95 03/21/23 17:30 131 H 20 118/70 90 L 03/21/23 16:24 98.2 F 160 H 20 103/71 95 03/21/23 12:48 98.7 F 62 18 108/73 90 L Results 03/22/23 06:29 03/22/23 06:29 Cardiac Enzymes 03/21/23 03/22/23 Range/Units 16:03 06:29 AST 37 35 (17-59) U/L Coagulation 03/21/23 03/22/23 Range/Units 16:03 06:29 PT 45.9 H 28.0 H (10.0-12.5) sec APTT 43.8 H (22.0-30.0) sec CBC 03/21/23 03/22/23 Range/Units 16:03 06:29 WBC 16.8 H 11.8 H (3.8-10.6) k/uL RBC 4.72 4.13 L (4.30-5.90) m/uL Hgb 12.7 L 11.4 L (13.0-17.5) gm/dL Hct 40.1 35.4 L (39.0-53.0) % Plt Count 385 391 (150-450) k/uL Comprehensive Metabolic Panel 03/21/23 03/22/23 Range/Units 16:03 06:29 Sodium 131 L 131 L (137-145) mmol/L Potassium 4.9 4.4 (3.5-5.1) mmol/L Chloride 94 L 96 L (98-107) mmol/L Carbon Dioxide 25 28 (22-30) mmol/L BUN 33 H 32 H (9-20) mg/dL Creatinine 0.88 0.76 (0.66-1.25) mg/dL Glucose 116 H 122 H (74-99) mg/dL Calcium 8.6 8.2 L (8.4-10.2) mg/dL AST 37 35 (17-59) U/L ALT 25 27 (4-49) U/L Alkaline Phosphatase 161 H 151 H (38-126) U/L Total Protein 6.3 5.4 L (6.3-8.2) g/dL Albumin 3.3 L 2.7 L (3.5-5.0) g/dL Current Medications Generic Name Dose Route Start Last Admin Trade Name Freq PRN Reason Stop Dose Admin Acetaminophen 1,000 mg 03/21/23 19:57 Acetaminophen Tab 500 Mg Tab PO QID PRN Pain or Fever > 100.5 Albuterol/Ipratropium 3 ml 03/21/23 16:54 03/22/23 00:25 Ipratropium-Albuterol 3 Ml Neb INHALATION 3 ml RT-Q2H PRN Administration Shortness Of Breath Or Wheezing Albuterol/Ipratropium 3 ml 03/21/23 20:00 03/22/23 08:11 Ipratropium-Albuterol 3 Ml Neb INHALATION 3 ml RT-QID AGUSTÍN Administration Azithromycin 500 mg 03/22/23 09:00 03/22/23 08:14 Azithromycin 500 Mg Tab PO 03/23/23 09:01 500 mg DAILY AGUSTÍN Administration Protocol Budesonide 1 mg 03/21/23 20:00 03/22/23 08:12 Budesonide 1 Mg/2 Ml Nebu INHALATION 1 mg RT-BID AGUSTÍN Administration Diphenhydramine HCl 100 mg 03/21/23 19:57 Diphenhydramine 25 Mg Cap PO BID PRN ITCHING/ALLERGIES Flecainide Acetate 50 mg 03/21/23 21:00 03/22/23 08:14 Flecainide 50 Mg Tab PO 50 mg Q12HR AGUSTÍN Administration Formoterol Fumarate 20 mcg 03/22/23 08:00 03/22/23 08:11 Formoterol Fumarate 20 Mcg/2 Ml Nebu INHALATION 20 mcg RT-BID AGUSTÍN Administration Furosemide 20 mg 03/22/23 09:00 03/22/23 08:14 Furosemide 20 Mg Tab PO 20 mg DAILY AGUSTÍN Administration Sodium Chloride 1,000 mls @ 50 mls/hr 03/21/23 17:00 03/21/23 17:14 Saline 0.9% IV 100 mls/hr .Q20H AGUSTÍN Administration Ceftriaxone Sodium 2 gm/ 50 mls @ 100 mls/hr 03/22/23 09:00 03/22/23 08:13 Sodium Chloride IVPB 03/25/23 09:29 100 mls/hr Q24HR AGUSTÍN Administration Protocol Diltiazem HCl 125 mg/ Sodium 125 mls @ 5 mls/hr 03/21/23 18:00 03/21/23 17:57 Chloride IV 5 mg/hr .Q24H AGUSTÍN 5 mls/hr Administration 5 MG/HR Methylprednisolone Sodium Succinate 60 mg 03/21/23 18:00 03/22/23 06:20 Methylprednisolone Sod Succi 125 Mg/2 Ml Vial IV 60 mg Q6HR AGUSTÍN Administration Miscellaneous Information 1 each 03/21/23 16:54 Pneumonia Protocol Utilized 1 Each Misc PO ONCE PRN Per Protocol Miscellaneous Information 1 each 03/22/23 08:19 Rx Info: Iv Contrast Was Given 1 Each Misc MISCELLANE 03/24/23 08:20 DAILY PRN Per Protocol Multivitamins 1 each 03/22/23 09:00 03/22/23 08:14 Multivitamins, Thera 1 Each Tab PO 1 each DAILY AGUSTÍN Administration Naloxone HCl 0.2 mg 03/21/23 16:54 Naloxone 0.4 Mg/Ml 1 Ml Vial IVP Q2M PRN Opioid Reversal Spironolactone 25 mg 03/22/23 09:00 03/22/23 08:14 Spironolactone 25 Mg Tab PO 25 mg DAILY AGUSTÍN Administration 03/22/23 06:29 03/22/23 06:29
--- NOTE | 2023-03-22 10:42 | CT ---
EXAMINATION TYPE: CT chest w con CT DLP: 241.5 mGycm, Automated exposure control for dose reduction was used. DATE OF EXAM: 03/22/2023 9:53 AM COMPARISON: Chest radiograph from 01/06/2023. CLINICAL INDICATION:Male, 87 years old with history of Lung mass, hemoptysis; PHH, hemoptysis, pneumo josey, lung mass TECHNIQUE: Multiple axial images were obtained through the chest. Sagittal and coronal reformats were created for review. Contrast used:100 mL of Isovue 300 with IV Contrast (None if empty) Oral contrast used: (None if empty) FINDINGS: LUNGS/ PLEURA: Increasing consolidation changes in the right lower lung superior segment with masslik e appearance measuring 5.7 x 6.0 cm which is new from prior on 01/06/2023. No evidence for pneumothorax . No left-sided pleural effusion. There is moderate to severe emphysema changes bilaterally. Right lo wer lung peripheral nodule measuring 14 mm seen on prior is less conspicuous. AIRWAY: Patent and unremarkable. HEART: Size within normal limits. Atherosclerosis of the coronary arteries. MEDIASTINUM: No gross evidence of adenopathy. VASCULATURE: Ascending thoracic aorta ectasia up to 4.5 x 4.6 cm. The major vessels of the aortic arc h are patent. There is a three-vessel aortic arch. Descending thoracic aorta is within normal limits. Visualized portions of the upper abdominal aorta demonstrates fusiform dilation partially visualized up to 3.5 cm. MUSCULOSKELETAL: Moderate disc degeneration changes are present throughout the thoracolumbar spine. M ultilevel compression deformities T12 and L1..The T12 compression deformity is worse from prior with a suspected new from prior cortical buckling of the inferior endplate suggestive of compression fract ure. SOFT TISSUES/LYMPH NODES: Unremarkable. LOWER NECK: No significant findings. UPPER ABDOMEN: No significant findings. IMPRESSION: 1. Acute right lower lobe superior segment airspace consolidation concerning for pneumonia. Scattere d additional parenchymal densities seen on prior are not significantly changed or improved. 2. Ascending thoracic aorta ectasia up to 4.5 cm. 3. 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 4. Moderate to severe emphysema changes. 5. Right lower lung peripheral pulmonary nodule-like change remains present measuring 14 mm short-te rm. Surveillance on short-term follow-up is recommended to ensure resolution of pneumonia. 6. Progression of compression deformity of the T12 vertebrae. Consider MRI evaluation with the patie nt's stable.
[2023-03-22] MEDS: SODIUM CHLORIDE 0.9% 1,000 ML IV SCH (11:09)
[2023-03-22] MEDS ORDERED: WARFARIN 5 MG TAB PO SCH (15:00)
--- NOTE | 2023-03-22 15:02 | P.HPIM ---
History of Present Illness H&P Date: 03/21/23 Chief Complaint: Multilobar pneumonia. HISTORY OF PRESENT ILLNESS: This is an 87-year-old male with a previous medical history significant for 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 failure on oxygen at home, paroxysmal atrial for depression, thoracic aortic aneurysm, abdominal aortic aneurysm, chronic diastolic heart failure, chronic pulmonary hypertension, patient presented to the emergency department at [facility] with acute shortness breath associated with increased coughing of yellowish and blood frothy sputum, has been having increased shortness breath over the last 3 days, he was complain of some fever and chills, he also was complaining of increased diarrhea over the last 24 hours, patient was seen and evaluated in emergency room and he was found to have leukocytosis, a 16,000, he also found to have coagulopathy due to his INR being elevated, patient had a chest x-ray that didn't show evidence of multilobar pneumonia as well as left lower lobe mass that he has been following with Dr. Zapata as an outpatient, patient was started on IV Solu-Medrol 60 mg IV push every 6 hours, DuoNeb 3 mg nebulization 4 times every day, he was also started on IV antibiotic in the form of Rocephin 1 g every 24 hours as well as Zithromax 500 mg orally once every day, urine Legionella antigen, mycoplasma antibody IgG and IgM, he was also started on Pulmicort 1 mg position twice every day he was admitted to the hospital he also was found to have atrial fibrillation with rapid ventricular response, he was seen in consultation by cardiology was started on Cardizem drip and he was also started back on his Tambocor 50 mg orally twice every day. REVIEW OF SYSTEMS: Constitutional: positive for fever, no chills, no night sweats. No weight change. No weakness, fatigue or lethargy. No daytime sleepiness. HEENT: No headache. No blurred vision or double vision, no loss of vision. No loss of Hearing, no ringing in the ears, no dizziness. No nasal drainage or congestion. No epistaxis. No sore throat. Lungs: positive for shortness of breath, positive for cough,yellow sputum production that is bloody positive for wheezing. Reports dyspnea with activity. Cardiovascular: No chest pain, positive for lower extremity edema. positive for palpitations. No paroxysmal nocturnal dyspnea. No orthopnea. No lighthea dedness or dizziness. No syncopal episodes. Abdominal: Reports abdominal pain. positive for nausea, no vomiting. positive for diarrhea. No constipation. No bloody or tarry stools reports loss of appetite. Genitourinary: No dysuria, increased frequency, urgency. No urinary retention. Musculoskeletal: No myalgias. positive for muscle weakness, positive for gait dysfunction, no frequent falls. No back pain. No neck pain. Integumentary: No wounds, no lesions. No rash or pruritus. No unusual bruising. No change in hair or nails. Neurologic: No aphasia. No facial droop. No change in mentation. No head injury. No headache. No paralysis. No paresthesia. Psychiatric: No depression. No anxiety. No mood swings. Endocrine: No abnormal blood sugars. No weight change. PAST MEDICAL HISTORY: chronic hypoxemic respiratory failure due to COPD. Severe pulmonary hypertension. Thoracic aortic aneurysm. Paroxysmal atrial fibrillation Abdominal aortic aneurysm Osteoarthritis Chronic diastolic heart failure PAST SURGICAL HISTORY: peptic ulcer surgery in 1970 Right inguinal hernia repair 2009 Bilateral cataract surgery 2007 and 2008 Colonoscopy 2015 Skin biopsy for bullous pemphigoid. SOCIAL HISTORY: patient used to smoke about a pack a day he smoked for many years, and quit more than 20 years ago, he denies any alcohol ingestion, he lives with his he does have a walker from ablation, he does have oxygen at home. FAMILY HISTORY: father at age 70 due to ruptured thoracic aortic aneurysm mother at the age of 75 from cancer of unknown origin patient had a brother who at age of 55 from brain cancer with metastatic disease, patient had one sister who at age 75 from breast cancer patient has 2 sons both healthy, and 2 daughters no major medical problems. PHYSICAL EXAMINATION: General: 87-year-old male laying down in bed in minimal respiratory distress. HEENT: Head is atraumatic, normocephalic, pupils were equal round reactive to light and recommendation, extraocular muscle movement were intact, sclera nonicteric, conjunctivae were pale, mucous membranes of the mouth are somewhat dry. Neck: Supple, no JVP, normal carotid upstroke bilaterally, no lymphadenopathy. Chest: Decreased breath sounds at the bases, few rhonchi, minimal expiratory wheezes, no chest wall tenderness, no intercostal retractions. Heart: First heart sound is normal, second heart sound is normal irregularly irregular there is JULI 2/6 located at the left sternal border Abdomen: Soft, nontender, nondistended, positive bowel sounds. Extremities: There is +2 edema no calf tenderness DP +2 bilaterally. Neurologic examination: Patient is awake alert and oriented X 3, cranial nerves II-12 appear grossly intact, muscle power were 4 out of 5 in upper extremities and 3 out of 5 in bilateral lower extremities, deep tendon reflexes normal bilaterally. ASSESSMENT AND PLAN: 1. 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 Continue patient on Rocephin 1 g IV piggyback every 24 hours, Zithromax 500 mg every 24 hours, start the patient on Solu-Medrol 60 mg IV push every 6 hours, start the patient on Pulmicort 1 mg nebulization twice every day, start the patient on DuoNeb 3 mg nebulization 4 times every day, start Pulmicort 1 mg nebulization twice every day, pulmonary consultation,.we will check urine Legionella antigen as well as mycoplasma antibody IgG and IgM. 2. Acute diastolic heart failure with severe pulmonary hypertension. Continue patient on torsemide 20 mg once every day as well as spironolactone 25 mg orally once every day, monitor the patient input and output and daily, discontinue IV fluid. 3. Atrial fibrillation with rapid ventricular response. Continue patient on Tambocor and Cardizem drip off hold Coumadin for tonight and restart tomorrow morning. 4. Leukocytosis likely related to to multilobar pneumonia with sepsis. Continue IV antibiotic, monitor the patient's CBC over the next 24 hours. 5. Coagulopathy due to Coumadin use and sepsis. Hold Coumadin for tonight repeat tomorrow morning. 6. Atrial fibrillation continue Tambocor 50 mg orally twice every day. 7. Thoracic aortic aneurysm. Has been under the care of cardiology CT angiography is up-to-date. 8. Abdominal aortic and nursing. Stable. 9. Bullous pemphigoid. Is stable. 10. DVT prophylaxis. Restart the patient on Coumadin 5 mg orally once every day starting tomorrow morning. 11. GI prophylaxis. Continue patient on Protonix 40 mg orally once every day. 12. Admit to inpatient. Estimate a length of stay 2 midnights. 13. Full code. 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 History of Any Multi-Drug Resistant Organisms: None Reported Past Surgical History: Adenoidectomy, Hernia Repair, Tonsillectomy Additional Past Surgical History / Comment(s): ULCER REPAIR- 35 YEARS AGO, cataract bilateral Past Anesthesia/Blood Transfusion Reactions: No Reported Reaction Past Psychological History: No Psychological Hx Reported Smoking Status: Former smoker Past Alcohol Use History: Rare Past Drug Use History: None Reported - Past Family History Mother Family Medical History: Cancer Additional Family Medical History / Comment(s): from [place] (stomach) Father Family Medical History: Myocardial Infarction ([place]) Additional Family Medical History / Comment(s): passes away from aneurysm Medications and Allergies Home Medications Medication Instructions Recorded Confirmed Type Flecainide [Tambocor] 50 mg PO Q12HR 09/27/17 03/21/23 History Warfarin [Coumadin] 5 mg PO DAILY 09/27/17 03/21/23 History diphenhydrAMINE [Benadryl] 100 mg PO BID PRN 09/27/17 03/21/23 History Acetaminophen [Tylenol] 1,000 mg PO QID PRN 05/21/20 03/21/23 History Albuterol Sulfate [Albuterol 2 puff INHALATION RT-QID PRN 10/19/20 03/21/23 History Sulfate Hfa] Furosemide [Lasix] 20 mg PO DAILY 03/21/23 03/21/23 History Ipratropium-Albuterol Nebulize 3 ml INHALATION RT-QID 03/21/23 03/21/23 History [Duoneb 0.5 mg-3 mg/3 ml Soln] Multivitamins, Thera [Multivitamin 1 tab PO DAILY 03/21/23 03/21/23 History (formulary)] Spironolactone [Aldactone] 25 mg PO DAILY 03/21/23 03/21/23 History Triamcinolone 0.1% Cream [Kenalog 1 applicatio TOPICAL BID PRN 03/21/23 03/21/23 History 0.1% Cream] Allergies Allergy/AdvReac Type Severity Reaction Status Date / Time No Known Allergies Allergy Verified 03/21/23 12:48 Physical Exam Vitals: Vital Signs Temp Pulse Resp BP Pulse Ox 03/21/23 19:00 112 H 24 111/66 95 03/21/23 18:30 112 H 24 116/94 95 03/21/23 18:27 122 H 03/21/23 18:15 128 H 28 H 108/88 91 L 03/21/23 18:00 123 H 24 100/68 95 03/21/23 17:30 131 H 20 118/70 90 L 03/21/23 16:24 98.2 F 160 H 20 103/71 95 03/21/23 12:48 98.7 F 62 18 108/73 90 L Intake and Output 03/21/23 03/21/23 03/21/23 06:59 14:59 22:59 Other: Weight 63.503 kg Results CBC & Chem 7: 03/22/23 06:29 03/22/23 06:29 Labs: Abnormal Lab Results - Last 24 Hours (Table) 03/21/23 03/21/23 03/21/23 Range/Units 16:03 16:03 16:03 WBC 16.8 H (3.8-10.6) k/uL Hgb 12.7 L (13.0-17.5) gm/dL RDW 16.0 H (11.5-15.5) % Neutrophils # 15.5 H (1.3-7.7) k/uL Lymphocytes # 0.2 L (1.0-4.8) k/uL PT 45.9 H (10.0-12.5) sec INR 4.7 H (<1.2) APTT 43.8 H (22.0-30.0) sec Sodium 131 L (137-145) mmol/L Chloride 94 L (98-107) mmol/L BUN 33 H (9-20) mg/dL Glucose 116 H (74-99) mg/dL Alkaline Phosphatase 161 H (38-126) U/L Albumin 3.3 L (3.5-5.0) g/dL
--- NOTE | 2023-03-22 15:04 | P.PN ---
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 on oxygen at home, paroxysmal atrial for depression, thoracic aortic aneurysm, abdominal aortic aneurysm, chronic diastolic heart failure, chronic pulmonary hypertension, patient presented to the emergency department at [facility] with acute shortness breath associated with increased coughing of yellowish and blood frothy sputum, has been having increased shortness breath over the last 3 days, he was complain of some fever and chills, he also was complaining of increased diarrhea over the last 24 hours, patient was seen and evaluated in emergency room and he was found to have leukocytosis, a 16,000, he also found to have coagulopathy due to his INR being elevated, patient had a chest x-ray that didn't show evidence of multilobar pneumonia as well as left lower lobe mass that he has been following with Dr. Zapata as an outpatient, patient was started on IV Solu-Medrol 60 mg IV push every 6 hours, DuoNeb 3 mg nebulization 4 times every day, he was also started on IV antibiotic in the form of Rocephin 1 g every 24 hours as well as Zithromax 500 mg orally once every day, urine Legionella antigen, mycoplasma antibody IgG and IgM, he was also started on Pulmicort 1 mg position twice every day he was admitted to the hospital he also was found to have atrial fibrillation with rapid ventricular response, he was seen in consultation by cardiology was started on Cardizem drip and he was also started back on his Tambocor 50 mg orally twice every day. 03/22: Patient is sitting up in bed is feeling better today, he continues to have some coughing and minimal from production, minimal blood he denies any fever at this time, he has no chills, he continues to be feeling weak, he denies any abdominal pain, nausea or vomiting, he has not had a bowel movement today, he continues to have swelling but this point than yesterday, his insulin, he had related to the bathroom, he denies any dizziness or lightheadedness, no syncopal episode. Monitor showing atrial fibrillation with controlled rate. REVIEW OF SYSTEMS: Constitutional: positive for fever, no chills, no night sweats. No weight change. No weakness, fatigue or lethargy. No daytime sleepiness. HEENT: No headache. No blurred vision or double vision, no loss of vision. No loss of Hearing, no ringing in the ears, no dizziness. No nasal drainage or congestion. No epistaxis. No sore throat. Lungs: positive for shortness of breath, positive for cough,yellow sputum production that is bloody positive for wheezing. Reports dyspnea with activity. Cardiovascular: No chest pain, positive for lower extremity edema. positive for palpitations. No paroxysmal nocturnal dyspnea. No orthopnea. No lightheadedness or dizziness. No syncopal episodes. Abdominal: Reports abdominal pain. positive for nausea, no vomiting. positive for diarrhea. No constipation. No bloody or tarry stools reports loss of appetite. Genitourinary: No dysuria, increased frequency, urgency. No urinary retention. Musculoskeletal: No myalgias. positive for muscle weakness, positive for gait dysfunction, no frequent falls. No back pain. No neck pain. Integumentary: No wounds, no lesions. No rash or pruritus. No unusual bruising. No change in hair or nails. Neurologic: No aphasia. No facial droop. No change in mentation. No head injury. No headache. No paralysis. No paresthesia. Psychiatric: No depression. No anxiety. No mood swings. Endocrine: No abnormal blood sugars. No weight change. PHYSICAL EXAMINATION: General: 87-year-old male laying down in bed in minimal respiratory distress. HEENT: Head is atraumatic, normocephalic, pupils were equal round reactive to light and recommendation, extraocular muscle movement were intact, sclera nonicteric, conjunctivae were pale, mucous membranes of the mouth are somewhat dry. Neck: Supple, no JVP, normal carotid upstroke bilaterally, no lymphadenopathy. Chest: Decreased breath sounds at the bases, few rhonchi, minimal expiratory wheezes, no chest wall tenderness, no intercostal retractions. Heart: First heart sound is normal, second heart sound is normal irregularly irregular there is JULI 2/6 located at the left sternal border Abdomen: Soft, nontender, nondistended, positive bowel sounds. Extremities: There is +2 edema no calf tenderness DP +2 bilaterally. Neurologic examination: Patient is awake alert and oriented X 3, cranial nerves II-12 appear grossly intact, muscle power were 4 out of 5 in upper extremities and 3 out of 5 in bilateral lower extremities, deep tendon reflexes normal bilaterally. ASSESSMENT AND PLAN: 1. 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 Continue patient on Rocephin 1 g IV piggyback every 24 hours, Zithromax 500 mg every 24 hours, start the patient on Solu-Medrol 60 mg IV push every 6 hours, start the patient on Pulmicort 1 mg nebulization twice every day, start the patient on DuoNeb 3 mg nebulization 4 times every day, start Pulmicort 1 mg nebulization twice every day, pulmonary consultation,.we will check urine Legionella antigen as well as mycoplasma antibody IgG and IgM. 2. Acute diastolic heart failure with severe pulmonary hypertension. Continue patient on torsemide 20 mg once every day as well as spironolactone 25 mg orally once every day, monitor the patient input and output and daily, discontinue IV fluid. 3. Atrial fibrillation with rapid ventricular response. Continue patient on Tambocor and Cardizem drip off hold Coumadin for tonight and restart tomorrow morning. 4. Leukocytosis likely related to to multilobar pneumonia with sepsis. Continue IV antibiotic, monitor the patient's CBC over the next 24 hours. 5. Coagulopathy due to Coumadin use and sepsis. Hold Coumadin for tonight repeat tomorrow morning. 6. Atrial fibrillation continue Tambocor 50 mg orally twice every day. 7. Thoracic aortic aneurysm. Has been under the care of cardiology CT cristobal ography is up-to-date. 8. Abdominal aortic and nursing. Stable. 9. Bullous pemphigoid. Is stable. 10. DVT prophylaxis. Restart the patient on Coumadin 5 mg orally once every day starting tomorrow morning. 11. GI prophylaxis. Continue patient on Protonix 40 mg orally once every day. 12. Physical therapy evaluation. Objective - Vital Signs Vital signs: Vital Signs Temp 98.2 F 03/22/23 14:09 Pulse 92 03/22/23 14:09 Resp 22 03/22/23 14:09 BP 113/70 03/22/23 14:09 Pulse Ox 92 L 03/22/23 14:09 FiO2 Intake & Output 03/21/23 03/22/23 03/22/23 18:59 06:59 18:59 Weight 63.503 kg 63.503 kg Other: Voiding Method Toilet Urinal - Labs CBC & Chem 7: 03/22/23 06:29 03/22/23 06:29 Labs: Abnormal Lab Results - Last 24 Hours (Table) 03/21/23 03/21/23 03/21/23 Range/Units 16:03 16:03 16:03 WBC 16.8 H (3.8-10.6) k/uL RBC (4.30-5.90) m/uL Hgb 12.7 L (13.0-17.5) gm/dL Hct (39.0-53.0) % RDW 16.0 H (11.5-15.5) % Neutrophils # 15.5 H (1.3-7.7) k/uL Lymphocytes # 0.2 L (1.0-4.8) k/uL PT 45.9 H (10.0-12.5) sec INR 4.7 H (<1.2) APTT 43.8 H (22.0-30.0) sec Sodium 131 L (137-145) mmol/L Chloride 94 L (98-107) mmol/L BUN 33 H (9-20) mg/dL Glucose 116 H (74-99) mg/dL Calcium (8.4-10.2) mg/dL Alkaline Phosphatase 161 H (38-126) U/L Total Protein (6.3-8.2) g/dL Albumin 3.3 L (3.5-5.0) g/dL 03/22/23 03/22/23 03/22/23 Range/Units 06:29 06:29 06:29 WBC 11.8 H (3.8-10.6) k/uL RBC 4.13 L (4.30-5.90) m/uL Hgb 11.4 L (13.0-17.5) gm/dL Hct 35.4 L (39.0-53.0) % RDW 16.1 H (11.5-15.5) % Neutrophils # 11.0 H (1.3-7.7) k/uL Lymphocytes # 0.3 L (1.0-4.8) k/uL PT 28.0 H (10.0-12.5) sec INR 2.8 H (<1.2) APTT (22.0-30.0) sec Sodium 131 L (137-145) mmol/L Chloride 96 L (98-107) mmol/L BUN 32 H (9-20) mg/dL Glucose 122 H (74-99) mg/dL Calcium 8.2 L (8.4-10.2) mg/dL Alkaline Phosphatase 151 H (38-126) U/L Total Protein 5.4 L (6.3-8.2) g/dL Albumin 2.7 L (3.5-5.0) g/dL Microbiology - Last 24 Hours (Table) 03/21/23 18:26 Gram Stain - Preliminary Sputum
[2023-03-22 17:11] LABS: Glucose,Whole Blood 197 mg/dL (70-110)
[2023-03-22] MEDS ORDERED: WARFARIN 2 MG TAB PO ONE (18:00)
[2023-03-22 20:16] LABS: Glucose,Whole Blood 140 mg/dL (70-110)
[2023-03-22] MEDS: METOPROLOL TARTRATE 25 MG TAB PO SCH (20:21)
[2023-03-22] MEDS: ACETAMINOPHEN TAB 500 MG TAB PO PRN (20:21)
[2023-03-22] MEDS: DILTIAZEM 125 MG in SODIUM CHLORIDE 0.9% 100 ML IV SCH (21:51)
[2023-03-23 04:56] LABS: Mycoplasma IgG Antibody (EIA) 1.59 INDEX (<=0.90); Mycoplasma IgM Antibody 0.26 INDEX (<=0.90)
[2023-03-23] MEDS: methylPREDNISolone SOD SUCCI 125 MG/2 ML VIAL IV SCH ×4 (05:33→23:36)
[2023-03-23] MEDS: SODIUM CHLORIDE 0.9% 1,000 ML IV SCH (05:34)
[2023-03-23 06:10] LABS: Glucose,Whole Blood 162 mg/dL (70-110)
[2023-03-23 06:57] LABS: Anisocytosis Slight; Basophils % (A) 0 %; Eosinophils % (A) 0 %; HCT 35.7 % (39.0-53.0); HGB 10.9 gm/dL (13.0-17.5); Hypochromasia Slight; Lymphocytes # (A) 0.2 k/uL (1.0-4.8); Lymphocytes % (A) 2 %; MCH 26.5 pg (25.0-35.0); MCHC 30.6 g/dL (31.0-37.0); MCV 86.5 fL (80.0-100.0); Mean Platelet Volume 7.5; Monocytes # (A) 0.7 k/uL (0-1.0); Monocytes % (A) 5 %; Neutrophils # (A) 11.6 k/uL (1.3-7.7); Neutrophils % (A) 92 %; Platelet Count 394 k/uL (150-450); RBC 4.13 m/uL (4.30-5.90); RDW 16.1 % (11.5-15.5); WBC 12.6 k/uL (3.8-10.6)
[2023-03-23 07:07] LABS: INR 1.1 (<1.2); Prothrombin Time 11.8 sec (10.0-12.5)
[2023-03-23 07:24] LABS: ALT 65 U/L (4-49); AST 87 U/L (17-59); African American GFR (CKD) >90 (>60 ml/min/1.73 sqM); Albumin 2.8 g/dL (3.5-5.0); Alkaline Phosphatase 160 U/L (38-126); Anion Gap 11 mmol/L; Blood Urea Nitrogen 31 mg/dL (9-20); Calcium 8.4 mg/dL (8.4-10.2); Carbon Dioxide 24 mmol/L (22-30); Chloride 98 mmol/L (98-107); Glucose 151 mg/dL (74-99); Non-African American GFR(CKD) 84 (>60 ml/min/1.73 sqM); Potassium 4.5 mmol/L (3.5-5.1); Sodium 133 mmol/L (137-145); Total Bilirubin 0.3 mg/dL (0.2-1.3); Total Protein 5.6 g/dL (6.3-8.2)
[2023-03-23] MEDS: IPRATROPIUM-ALBUTEROL 3 ML NEB INHALATION SCH ×4 (08:37→21:17)
[2023-03-23] MEDS: BUDESONIDE 1 MG/2 ML NEBU INHALATION SCH ×2 (08:37→21:17)
[2023-03-23] MEDS: FORMOTEROL FUMARATE 20 MCG/2 ML NEBU INHALATION SCH ×2 (08:37→21:17)
[2023-03-23] MEDS: AZITHROMYCIN 500 MG TAB PO SCH (09:05)
[2023-03-23] MEDS: FLECAINIDE 50 MG TAB PO SCH ×2 (09:05→20:26)
[2023-03-23] MEDS: MULTIVITAMINS, THERA 1 EACH TAB PO SCH (09:05)
[2023-03-23] MEDS: METOPROLOL TARTRATE 25 MG TAB PO SCH ×2 (09:05→20:26)
[2023-03-23] MEDS: TORSEMIDE 20 MG TAB PO SCH (09:06)
[2023-03-23] MEDS: SPIRONOLACTONE 25 MG TAB PO SCH (09:06)
--- NOTE | 2023-03-23 09:57 | P.PN ---
Subjective Progress Note Date: 03/23/23 Principal diagnosis: Atrial fibrillation The patient is an 87-year-old gentleman with chronic obstructive pulmonary disease and chronic hypoxic respiratory failure on oxygen as well as history of thoracic aortic aneurysm and also history of paroxysmal atrial fibrillation and multiple comorbid conditions. The patient presented to the emergency department complaining of hemoptysis and increasing in the shortness of breath. He was diagnosed with COPD exacerbation. Also he was found to be in atrial fibrillation with rapid ventricular response. He is known to have paroxysmal atrial fibrillation on anticoagulation was Coumadin as well as type IC antiarrhythmic medication with the flecainide and he states he has been compliant with all of his medications. When he presented he was in atrial fibrillation with rapid ventricular response and he was started on Cardizem IV a nd continues to be on Cardizem IV at 5 mg per hour. His heart rate is around 100 bpm. He remains in atrial fibrillation. His INR was supratherapeutic at 4.7 when he presented. INR today is 2.8. The patient is known to have left upper lobe mass and he is in process of having possible computed tomography scan for further clarification. On examination he does have diminished breathing sounds bilaterally with a regular rhythm and systolic murmur at the right and upper sternal border. Her March [id number] The patient was seen and evaluated this morning. He is still short of breath. No more hemoptysis. The INR is stopped her relative. Meanwhile I'm going to start the patient on heparin IV until we make sure that he is not going to undergo any procedure for the mass in the lung. The computed tomography scan showed possible mass in the lung with differential diagnosis of pneumonia. Also the computed tomography scan showed thoracic aortic aneurysm. Assessment COPD exacerbation Lung mass currently is under investigation Hemoptysis Supratherapeutic INR Paroxysmal atrial fibrillation Atrial fibrillation with RVR Multiple comorbid conditions Plan Continue the current medical regimen Start the patient on heparin IV as a bridge Follow-up with the patient Follow-up with the echo Objective - Vital Signs Vital signs: Vital Signs Temp 97.5 F L 03/23/23 03:53 Pulse 96 03/23/23 03:53 Resp 16 03/23/23 03:53 BP 122/71 03/23/23 03:53 Pulse Ox 95 03/23/23 03:53 FiO2 Intake & Output 03/22/23 03/23/23 03/23/23 18:59 06:59 18:59 Intake Total 225 180 Balance 225 180 Weight 63.503 kg 60.2 kg Intake: Oral 225 180 Other: Voiding Method Toilet Urinal # Voids 2 1 # Bowel Movements 1 - Labs CBC & Chem 7: 03/23/23 06:13 03/23/23 06:13 Labs: Abnormal Lab Results - Last 24 Hours (Table) 03/21/23 03/22/23 03/22/23 Range/Units 20:20 17:09 20:13 WBC (3.8-10.6) k/uL RBC (4.30-5.90) m/uL Hgb (13.0-17.5) gm/dL Hct (39.0-53.0) % MCHC (31.0-37.0) g/dL RDW (11.5-15.5) % Neutrophils # (1.3-7.7) k/uL Lymphocytes # (1.0-4.8) k/uL Sodium (137-145) mmol/L BUN (9-20) mg/dL Glucose (74-99) mg/dL POC Glucose (mg/dL) 197 H 140 H (70-110) mg/dL AST (17-59) U/L ALT (4-49) U/L Alkaline Phosphatase (38-126) U/L Total Protein (6.3-8.2) g/dL Albumin (3.5-5.0) g/dL Mycoplasma pneumon IgG 1.59 H (<=0.90) INDEX 03/23/23 03/23/23 03/23/23 Range/Units 06:08 06:13 06:13 WBC 12.6 H (3.8-10.6) k/uL RBC 4.13 L (4.30-5.90) m/uL Hgb 10.9 L (13.0-17.5) gm/dL Hct 35.7 L (39.0-53.0) % MCHC 30.6 L (31.0-37.0) g/dL RDW 16.1 H (11.5-15.5) % Neutrophils # 11.6 H (1.3-7.7) k/uL Lymphocytes # 0.2 L (1.0-4.8) k/uL Sodium 133 L (137-145) mmol/L BUN 31 H (9-20) mg/dL Glucose 151 H (74-99) mg/dL POC Glucose (mg/dL) 162 H (70-110) mg/dL AST 87 H (17-59) U/L ALT 65 H (4-49) U/L Alkaline Phosphatase 160 H (38-126) U/L Total Protein 5.6 L (6.3-8.2) g/dL Albumin 2.8 L (3.5-5.0) g/dL Mycoplasma pneumon IgG (<=0.90) INDEX Microbiology - Last 24 Hours (Table) 03/21/23 16:35 Blood Culture - Preliminary Blood 03/21/23 16:20 Blood Culture - Preliminary Blood 03/21/23 18:26 Gram Stain - Preliminary Sputum
[2023-03-23] MEDS: HEPARIN SOD,PORK IN 0.45% NACL 25,000 UNIT in 0.45% NACL 1 250ML.BAG IV SCH (10:48)
[2023-03-23 11:30] LABS: Glucose,Whole Blood 145 mg/dL (70-110)
--- NOTE | 2023-03-23 12:15 | P.PN ---
Subjective Progress Note Date: 03/23/23 I am seeing this patient in new consultation today 03/22/2023 in the emergency room after presented with the chief complaints of hemoptysis and shortness of breath. Patient is a 87-year-old white male with past medical history significant for paroxysmal atrial fibrillation anticoagulated on warfarin, nitesh re oxygen dependent COPD, thoracic aortic aneurysm, and left lower lobe lung mass. He does follow with Dr. Zapata in the pulmonary office for his COPD and lung mass. Patient presented to the emergency room yesterday afternoon with a chief complaint hemoptysis. He states that he's had bloody sputum mixed with mucus for approximately 1-1/2 days. Present symptoms associated mild shortness of breath and subjective fevers. Denies chest pain, heart palpitations, lightheadedness, or syncope. He does have some bilateral 3+ lower extremity edema. Patient does take warfarin on outpatient basis. His INR was supratherapeutic at 4.7 on arrival. heart rhythm is atrial flutter with rapid ventricular response, and the patient was started on Cardizem infusion at 5 mg per hour.patient is currently sitting up in bed, on 3 L/m nasal cannula, in no acute distress. Chest x-ray demonstrates extensive new multifocal infiltrates and trace pleural effusions. CBC demonstrates a leukocytosis with a WBC count of 16.8, hemoglobin 12.7, hematocrit 40.1, platelets 385. BMP shows sodium 131, potassium 4.9, chloride 94, serum bicarb 25, BUN 33, creatinine 0.80, glucose 116. normal saline is infusing at 50 ML's per hour. Lactic acid level I.8. Negative COVID-19.the patient is empirically started on antibiotics for community-acquired pneumonia including azithromycin and Rocephin. Currently afebrile. Also, started on DuoNeb's, budesonide inhalation, and IV Solu-Medrol. Patient is stable and nontoxic. He will be admitted to the cardiac stepdown unit once bed available. The patient is seen today 03/23/2023 in follow-up on the selective care unit. He is currently sitting up at the bedside. Awake and alert in no acute distress. He is on oxygen at 4 L/m per nasal cannula. He remains in atrial fibrillation. His warfarin has been on hold for possible bronchoscopy. He'll be initiated on a heparin drip for now. He is continued on ceftriaxone. Computed tomography scan of the chest revealed acute right lower lobe superior segment airspace consolidation concerning for pneumonia. He has a stable 14 mm right lower lung peripheral pulmonary nodule that had been followed in the outpatient setting. He is continued on bronchodilators, steroids, oral diuretics. White count 12.6. Hemoglobin 10.9. Platelets 394. Sodium 133. Potassium 4.5. Bicarb 24. BUN 31. Creatinine 0.74. Glucose 162. AST 87. AST 65. Objective - Vital Signs Vital signs: Vital Signs Temp 98.6 F 03/23/23 08:30 Pulse 108 H 03/23/23 12:00 Resp 24 03/23/23 08:30 BP 163/75 03/23/23 08:30 Pulse Ox 91 L 03/23/23 08:30 FiO2 Intake & Output 03/22/23 03/23/23 03/23/23 18:59 06:59 18:59 Intake Total 225 180 Output Total 500 Balance 225 -320 Weight 63.503 kg 60.2 kg Intake: Oral 225 180 Output: Urine 500 Other: Voiding Method Toilet Urinal # Voids 2 1 # Bowel Movements 1 - Exam GENERAL EXAM: Alert, pleasant 87-year-old male, on 4 L nasal cannula, comfortable in no apparent distress. HEAD: Normocephalic and atraumatic EYES: Normal reaction of pupils, equal size. NOSE: Clear with pink turbinates. THROAT: No erythema or exudates. NECK: No masses, no JVD. CHEST: No chest wall deformity. LUNGS: Equal air entry with scattered rhonchi. Crackles in the right lung base. No conversational dyspnea or accessory muscle use. CVS: S1 and S2 normal with no audible murmur, irregular rhythm. No extra heart sounds ABDOMEN: No hepatosplenomegaly, active bowel sounds, no guarding or rigidity. SPINE: No scoliosis or deformity SKIN: No rashes CENTRAL NERVOUS SYSTEM: No focal deficits, tone is normal in all 4 extremities. EXTREMITIES: There is bilateral lower extremity 3+ pitting edema. No clubbing, or cyanosis. Peripheral pulses are intact. - Labs CBC & Chem 7: 03/23/23 06:13 03/23/23 06:13 Labs: Abnormal Lab Results - Last 24 Hours (Table) 03/21/23 03/22/23 03/22/23 Range/Units 20:20 17:09 20:13 WBC (3.8-10.6) k/uL RBC (4.30-5.90) m/uL Hgb (13.0-17.5) gm/dL Hct (39.0-53.0) % MCHC (31.0-37.0) g/dL RDW (11.5-15.5) % Neutrophils # (1.3-7.7) k/uL Lymphocytes # (1.0-4.8) k/uL Sodium (137-145) mmol/L BUN (9-20) mg/dL Glucose (74-99) mg/dL POC Glucose (mg/dL) 197 H 140 H (70-110) mg/dL AST (17-59) U/L ALT (4-49) U/L Alkaline Phosphatase (38-126) U/L Total Protein (6.3-8.2) g/dL Albumin (3.5-5.0) g/dL Mycoplasma pneumon IgG 1.59 H (<=0.90) INDEX 03/23/23 03/23/23 03/23/23 Range/Units 06:08 06:13 06:13 WBC 12.6 H (3.8-10.6) k/uL RBC 4.13 L (4.30-5.90) m/uL Hgb 10.9 L (13.0-17.5) gm/dL Hct 35.7 L (39.0-53.0) % MCHC 30.6 L (31.0-37.0) g/dL RDW 16.1 H (11.5-15.5) % Neutrophils # 11.6 H (1.3-7.7) k/uL Lymphocytes # 0.2 L (1.0-4.8) k/uL Sodium 133 L (137-145) mmol/L BUN 31 H (9-20) mg/dL Glucose 151 H (74-99) mg/dL POC Glucose (mg/dL) 162 H (70-110) mg/dL AST 87 H (17-59) U/L ALT 65 H (4-49) U/L Alkaline Phosphatase 160 H (38-126) U/L Total Protein 5.6 L (6.3-8.2) g/dL Albumin 2.8 L (3.5-5.0) g/dL Mycoplasma pneumon IgG (<=0.90) INDEX 03/23/23 Range/Units 11:29 WBC (3.8-10.6) k/uL RBC (4.30-5.90) m/uL Hgb (13.0-17.5) gm/dL Hct (39.0-53.0) % MCHC (31.0-37.0) g/dL RDW (11.5-15.5) % Neutrophils # (1.3-7.7) k/uL Lymphocytes # (1.0-4.8) k/uL Sodium (137-145) mmol/L BUN (9-20) mg/dL Glucose (74-99) mg/dL POC Glucose (mg/dL) 145 H (70-110) mg/dL AST (17-59) U/L ALT (4-49) U/L Alkaline Phosphatase (38-126) U/L Total Protein (6.3-8.2) g/dL Albumin (3.5-5.0) g/dL Mycoplasma pneumon IgG (<=0.90) INDEX Microbiology - Last 24 Hours (Table) 03/21/23 16:35 Blood Culture - Preliminary Blood 03/21/23 16:20 Blood Culture - Preliminary Blood 03/21/23 18:26 Gram Stain - Preliminary Sputum Assessment and Plan Assessment: Acute on chronic dyspnea, secondary to multifocal community-acquired pneumonia and COPD exacerbation. Chest x-ray demonstrates new extensive multifocal pneumonia within the right midlung and bilateral bases with trace pleural effusions Severe chronic obstructive pulmonary disease, with an FEV1 37% of predicted Chronic hypoxemic respiratory failure, secondary to above Leukocytosis Atrial fibrillation/flutter with rapid ventricular rate, anticoagulated on war farin and currently on Cardizem infusion Supratherapeutic INR, maintained on warfarin outpatient basis Small hemoptysis History of left lower lobe lung mass, followed-up on an outpatient basis. Ascending thoracic aortic aneurysm Chronic ongoing tobacco dependence Plan: The patient was seen and evaluated Computed tomography scan, labs and medications reviewed Patient is improving Will have follow-up chest x-ray in a few days May or may not require bronchoscopy Warfarin on hold Initiated on heparin drip for now Titrate the FiO2 as tolerated We will continue to follow I have personally seen and examined the patient, performed the documentation and the assessment and plan as written. Number of minutes spent on the visit: 10.
--- NOTE | 2023-03-23 14:03 | P.PN ---
Subjective Progress Note Date: 03/23/23 This is an 87-year-old male with a previous medical history significant for 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 failure on oxygen at home, paroxysmal atrial for depression, thoracic aortic aneurysm, abdominal aortic aneurysm, chronic diastolic heart failure, chronic pu lmonary hypertension, patient presented to the emergency department at [facility] with acute shortness breath associated with increased coughing of yellowish and blood frothy sputum, has been having increased shortness breath over the last 3 days, he was complain of some fever and chills, he also was complaining of increased diarrhea over the last 24 hours, patient was seen and evaluated in emergency room and he was found to have leukocytosis, a 16,000, he also found to have coagulopathy due to his INR being elevated, patient had a chest x-ray that didn't show evidence of multilobar pneumonia as well as left lower lobe mass that he has been following with Dr. Zapata as an outpatient, patient was started on IV Solu-Medrol 60 mg IV push every 6 hours, DuoNeb 3 mg nebulization 4 times every day, he was also started on IV antibiotic in the form of Rocephin 1 g every 24 hours as well as Zithromax 500 mg orally once every day, urine Legionella antigen, mycoplasma antibody IgG and IgM, he was also started on Pulmicort 1 mg position twice every day he was admitted to the hospital he also was found to have atrial fibrillation with rapid ventricular response, he was seen in consultation by cardiology was started on Cardizem drip and he was also started back on his Tambocor 50 mg orally twice every day. 03/22: Patient is sitting up in bed is feeling better today, he continues to have some coughing and minimal from production, minimal blood he denies any fever at this time, he has no chills, he continues to be feeling weak, he denies any abdominal pain, nausea or vomiting, he has not had a bowel movement today, he continues to have swelling but this point than yesterday, his insulin, he had related to the bathroom, he denies any dizziness or lightheadedness, no syncopal episode. Monitor showing atrial fibrillation with controlled rate. 03/23. Patient seen and examined. Blood work done this morning hemoglobin 10.9, sodium 133, potassium 4.5, BUN 31, creatinine is 0.74, INR 1.1. Currently on 4 L of oxygen. Gets short of breath on exertion. Swelling of legs is i mproved REVIEW OF SYSTEMS: CONSTITUTIONAL: No fever, no malaise,. CARDIOVASCULAR: No chest pain, no palpitations, no syncope. PULMONARY: As mentioned above GASTROINTESTINAL: No diarrhea, no nausea, no vomiting, no abdominal pain. NEUROLOGICAL: No headaches, no weakness, PHYSICAL EXAMINATION: GENERAL: The patient is alert and oriented x3, not in any acute distress. Well developed, well nourished. HEENT: Pupils are round and equally reacting to light. EOMI. No scleral icterus. No conjunctival pallor. Normocephalic, atraumatic. No pharyngeal erythema. No thyromegaly. CARDIOVASCULAR: S1 and S2 present. No murmurs, rubs, or gallops. PULMONARY: Diminished breath sounds at the bases bilaterally, no wheezing or crackles. ABDOMEN: Soft, nontender, nondistended, normoactive bowel sounds. No palpable organomegaly. MUSCULOSKELETAL: No joint swelling or deformity. EXTREMITIES: No cyanosis, clubbing, or pedal edema. NEUROLOGICAL: Gross neurological examination did not reveal any focal deficits. SKIN: No rashes. Assessment and plan Leukocytosis Sepsis acute on chronic hypoxemic respiratory failure Bacterial pneumonia left lower lobe lung mass acute exacerbation of COPD. Continue oxygen supplementation Aggressive bronchopulmonary hygiene Continue breathing treatment Continue IV Rocephin and azithromycin Continue IV Solu-Medrol Pulmonology following Acute diastolic heart failure with severe pulmonary hypertension. Atrial fibrillation with rapid ventricular response. Continue telemetry monitoring Continue Lopressor and flecainide Continue pharmacy dose heparin Cardiology following Coagulopathy due to Coumadin use and sepsis. Pharmacy dose Coumadin . Thoracic aortic aneurysm. Has been under the care of cardiology CT angiography is up-to-date. Abdominal aortic aneurysm. Stable. Bullous pemphigoid. Is stable. Labs and medication were reviewed.. Continue same treatment. Continue with symptomatic treatment. Resume home medication. Monitor labs and vitals. DVT and GI prophylaxis. Further recommendations as per clinical course of the patient Dictation was produced using [employer] dictation software. please excuse any grammatical, word or spelling errors. Objective - Vital Signs Vital signs: Vital Signs Temp 98.6 F 03/23/23 08:30 Pulse 136 H 11/23/23 08:30 Resp 24 03/23/23 08:30 BP 163/75 03/23/23 08:30 Pulse Ox 91 L 03/23/23 08:30 FiO2 Intake & Output 03/22/23 03/23/23 03/23/23 18:59 06:59 18:59 Intake Total 225 180 Output Total 500 Balance 225 -320 Weight 63.503 kg 60.2 kg Intake: Oral 225 180 Output: Urine 500 Other: Voiding Method Toilet Urinal # Voids 2 1 # Bowel Movements 1 - Labs CBC & Chem 7: 03/23/23 06:13 03/23/23 06:13 Labs: Abnormal Lab Results - Last 24 Hours (Table) 03/21/23 03/22/23 03/22/23 Range/Units 20:20 17:09 20:13 WBC (3.8-10.6) k/uL RBC (4.30-5.90) m/uL Hgb (13.0-17.5) gm/dL Hct (39.0-53.0) % MCHC (31.0-37.0) g/dL RDW (11.5-15.5) % Neutrophils # (1.3-7.7) k/uL Lymphocytes # (1.0-4.8) k/uL Sodium (137-145) mmol/L BUN (9-20) mg/dL Glucose (74-99) mg/dL POC Glucose (mg/dL) 197 H 140 H (70-110) mg/dL AST (17-59) U/L ALT (4-49) U/L Alkaline Phosphatase (38-126) U/L Total Protein (6.3-8.2) g/dL Albumin (3.5-5.0) g/dL Mycoplasma pneumon IgG 1.59 H (<=0.90) INDEX 03/23/23 03/23/23 03/23/23 Range/Units 06:08 06:13 06:13 WBC 12.6 H (3.8-10.6) k/uL RBC 4.13 L (4.30-5.90) m/uL Hgb 10.9 L (13.0-17.5) gm/dL Hct 35.7 L (39.0-53.0) % MCHC 30.6 L (31.0-37.0) g/dL RDW 16.1 H (11.5-15.5) % Neutrophils # 11.6 H (1.3-7.7) k/uL Lymphocytes # 0.2 L (1.0-4.8) k/uL Sodium 133 L (137-145) mmol/L BUN 31 H (9-20) mg/dL Glucose 151 H (74-99) mg/dL POC Glucose (mg/dL) 162 H (70-110) mg/dL AST 87 H (17-59) U/L ALT 65 H (4-49) U/L Alkaline Phosphatase 160 H (38-126) U/L Total Protein 5.6 L (6.3-8.2) g/dL Albumin 2.8 L (3.5-5.0) g/dL Mycoplasma pneumon IgG (<=0.90) INDEX Microbiology - Last 24 Hours (Table) 03/21/23 16:35 Blood Culture - Preliminary Blood 03/21/23 16:20 Blood Culture - Preliminary Blood 03/21/23 18:26 Gram Stain - Preliminary Sputum
--- NOTE | 2023-03-23 14:19 | CA ---
Transthoracic Echo Report Name: Ge Foster Age: 87 Gender: M : 1935 Exam Date: 03/22/2023 16:40 Exam Location: [facility] [place] [facility] Ht (in): 72 Wt (lb): 140 Ordering Physician: Javier Ward MD ([id number]) Attending/Referring Phys: Welt Butter Hand Nora Burnham RDCS Procedure CPT: Indications: SOB CHEST PAIN Cardiac Hx: Technical Quality: Fair Contrast 1: Total Dose (mL): Contrast 2: Total Dose (mL): MEASUREMENTS (Male / Female) Normal Values 2D ECHO LV Diastolic Diameter PLAX 4.4 cm 4.2 - 5.9 / 3.9 - 5.3 cm LV Systolic Diameter PLAX 2.6 cm IVS Diastolic Thickness 1.3 cm 0.6 - 1.0 / 0.6 - 0.9 cm LVPW Diastolic Thickness 1.2 cm 0.6 - 1.0 / 0.6 - 0.9 cm LV Relative Wall Thickness 0.6 RV Internal Dim ED PLAX 3.4 cm LA Systolic Diameter LX 3.2 cm 3.0 - 4.0 / 2.7 - 3.8 cm LV Diastolic Volume MOD 4C 72.4 cm??? LV Systolic Volume MOD 4C 39.0 cm??? LV Ejection Fraction MOD 4C 46.1 % LV Cardiac Index MOD 4C 2154.6 cm???/min???m??? LV Diastolic Length 4C 7.8 cm LV Systolic Length 4C 6.9 cm LV Diastolic Volume MOD 2C 67.4 cm??? LV Systolic Volume MOD 2C 35.5 cm??? LV Ejection Fraction MOD 2C 47.4 % LV Cardiac Index MOD 2C 2059.6 cm???/min???m??? LV Diastolic Length 2C 7.1 cm LV Systolic Length 2C 5.5 cm LA Volume 39.9 cm??? 18 - 58 / 22 - 52 cm??? LA Volume Index 22.4 cm???/m??? 16 - 28 cm???/m??? M-MODE Aortic Root Diameter MM 4.3 cm AV Cusp Separation MM 2.0 cm DOPPLER AV Peak Velocity 105.7 cm/s AV Peak Gradient 4.5 mmHg MV Area PHT 4.9 cm??? MV Deceleration Time 166.3 ms MV E' Velocity 10.5 cm/s TR Peak Velocity 246.4 cm/s TR Peak Gradient 24.3 mmHg Right Ventricular Systolic Press 28.9 mmHg FINDINGS Left Ventricle Left ventricular ejection fraction is estimated at 55-60 %. Left ventricular cavity size normal. Mildly increased septal wall thickness. Right Ventricle Mild right ventricular dilatation. Right ventricular systolic pressure within normal limits. Right Atrium Normal right atrial size. Left Atrium Normal left atrial size. Mitral Valve Mitral valve thickened. Mild mitral annular calcification. Trace to mild to moderate mitral regurgitation. Aortic Valve Trileaflet aortic valve. Aortic valve sclerosis. Mild aortic regurgitation. Tricuspid Valve Structurally normal tricuspid valve. Moderate tricuspid regurgitation. Pulmonic Valve Pulmonic valve not well visualized. Pericardium No pericardial effusion. Aorta Moderate aortic dilatation at the level of the sinuses of valsalva 43 mm CONCLUSIONS Normal LV systolic function Dilated RV. Normal pulmonary artery systolic pressure [id number] mitral regurgitation Mild aortic regurgitation Previewed by: Dr. Javier Ward MD (Electronically Signed) Final Date: 23 March 2023 14:18
[2023-03-23 16:23] LABS: Glucose,Whole Blood 166 mg/dL (70-110)
[2023-03-23] MEDS: DILTIAZEM 125 MG in SODIUM CHLORIDE 0.9% 100 ML IV SCH (17:11)
[2023-03-23] MEDS ORDERED: WARFARIN 5 MG TAB PO ONE (18:00)
[2023-03-23] MEDS: HEPARIN SODIUM 1,000 UN/ML (10ML VL) IV PRN (19:47)
[2023-03-23] MEDS: MELATONIN 3 MG TABLET PO SCH (20:26)
[2023-03-23 20:32] LABS: Glucose,Whole Blood 145 mg/dL (70-110)
[2023-03-24 02:36] LABS: Basophils % (A) 0 %; Eosinophils % (A) 0 %; HCT 32.9 % (39.0-53.0); HGB 10.4 gm/dL (13.0-17.5); Hypochromasia Slight; Lymphocytes # (A) 0.3 k/uL (1.0-4.8); Lymphocytes % (A) 3 %; MCHC 31.5 g/dL (31.0-37.0); MCV 85.7 fL (80.0-100.0); Mean Platelet Volume 7.4; Monocytes # (A) 0.4 k/uL (0-1.0); Monocytes % (A) 5 %; Neutrophils # (A) 8.8 k/uL (1.3-7.7); Neutrophils % (A) 92 %; Platelet Count 398 k/uL (150-450); RBC 3.84 m/uL (4.30-5.90); WBC 9.5 k/uL (3.8-10.6)
[2023-03-24 03:10] LABS: INR 1.1 (<1.2); Partial Thromboplastin Time 33.7 sec (22.0-30.0); Prothrombin Time 12.2 sec (10.0-12.5)
[2023-03-24] MEDS: HEPARIN SODIUM 1,000 UN/ML (10ML VL) IV PRN ×2 (03:25→20:31)
[2023-03-24] MEDS: SODIUM CHLORIDE 0.9% 1,000 ML IV SCH ×2 (03:36→23:31)
[2023-03-24] MEDS: methylPREDNISolone SOD SUCCI 125 MG/2 ML VIAL IV SCH ×4 (05:36→23:31)
[2023-03-24 06:05] LABS: Glucose,Whole Blood 157 mg/dL (70-110)
[2023-03-24] MEDS: IPRATROPIUM-ALBUTEROL 3 ML NEB INHALATION SCH ×4 (08:02→20:00)
[2023-03-24] MEDS: BUDESONIDE 1 MG/2 ML NEBU INHALATION SCH ×2 (08:02→20:00)
[2023-03-24] MEDS: FORMOTEROL FUMARATE 20 MCG/2 ML NEBU INHALATION SCH ×2 (08:03→19:59)
--- NOTE | 2023-03-24 08:06 | XR ---
EXAMINATION TYPE: XR chest 1V portable DATE OF EXAM: 03/24/2023 HISTORY: Shortness of breath. COMPARISON: 03/22/2023 TECHNIQUE: Single view of the chest is submitted. FINDINGS: Demonstrated are scattered senescent parenchymal change. Right lower lobe masslike infiltrate persists. Additional basilar infiltrates or atelectasis seen at the lung bases. The heart is stable. Hilar and mediastinal structures are within normal limits. Degenerative changes are seen of the dorsal spine. IMPRESSION: 1. Right lower lobe masslike infiltrate persists. Additional basilar infiltrates or atelectasis seen at the lung bases.
[2023-03-24] MEDS: FLECAINIDE 50 MG TAB PO SCH ×2 (09:03→20:17)
[2023-03-24] MEDS: TORSEMIDE 20 MG TAB PO SCH (09:04)
[2023-03-24] MEDS: SPIRONOLACTONE 25 MG TAB PO SCH (09:04)
[2023-03-24] MEDS: METOPROLOL TARTRATE 25 MG TAB PO SCH ×3 (09:04→20:17)
[2023-03-24] MEDS: MULTIVITAMINS, THERA 1 EACH TAB PO SCH (09:04)
--- NOTE | 2023-03-24 09:54 | P.PN ---
Subjective Progress Note Date: 03/24/23 Principal diagnosis: Atrial fibrillation The patient is an 87-year-old gentleman with chronic obstructive pulmonary disease and chronic hypoxic respiratory failure on oxygen as well as history of thoracic aortic aneurysm and also history of paroxysmal atrial fibrillation and multiple comorbid conditions. The patient presented to the emergency department complaining of hemoptysis and increasing in the shortness of breath. He was diagnosed with COPD exacerbation. Also he was found to be in atrial fibrillation with rapid ventricular response. He is known to have paroxysmal atrial fibrillation on anticoagulation was Coumadin as well as type IC antiarrhythmic medication with the flecainide and he states he has been compliant with all of his medications. When he presented he was in atrial fibrillation with rapid ventricular response and he was started on Cardizem IV a nd continues to be on Cardizem IV at 5 mg per hour. His heart rate is around 100 bpm. He remains in atrial fibrillation. His INR was supratherapeutic at 4.7 when he presented. INR today is 2.8. The patient is known to have left upper lobe mass and he is in process of having possible computed tomography scan for further clarification. On examination he does have diminished breathing sounds bilaterally with a regular rhythm and systolic murmur at the right and upper sternal border. March 232022 The patient was seen and evaluated this morning. He is still short of breath. No more hemoptysis. The INR is stopped her relative. Meanwhile I'm going to start the patient on heparin IV until we make sure that he is not going to undergo any procedure for the mass in the lung. The computed tomography scan showed possible mass in the lung with differential diagnosis of pneumonia. Also the computed tomography scan showed thoracic aortic aneurysm. 03/24/2023 The patient was seen and evaluated this morning. She is feeling slightly better. History short of breath and he stated hypoxic. He is tachycardic. I'm going to increase the dose of metoprolol to 25 mg by mouth 3 times a day. He does have bilateral lower extremity strength ankle edema. He supposed to be on oral diuretics and that was not restarted on going to restart him back on oral diuretics. Continue IV heparin at this point to know that the patient doesn't require any procedure and at that point I will switch him back to either Coumadin or any oral anticoagulation. The examination is remarkable for some diminished breathing sounds bilaterally with bilateral lower extremity strength ankle edema. The echo showed preserved systolic function was mild to moderate valvular abnormalities and dilated right ventricle. Assessment COPD exacerbation Lung mass currently is under investigation Hemoptysis Supratherapeutic INR Paroxysmal atrial fibrillation Atrial fibrillation with RVR Valvular abnormalities Plan Continue IV heparin and switch the patient to oral anticoagulation was renal he doesn't require any invasive procedure Increase the dose of metoprolol Restart the patient back on oral diuretics Follow-up with the patient Objective - Vital Signs Vital signs: Vital Signs Temp 96.6 F L 03/24/23 04:00 Pulse 100 03/24/23 08:36 Resp 18 03/24/23 04:00 BP 121/78 03/24/23 04:00 Pulse Ox 97 03/24/23 04:00 FiO2 Intake & Output 03/23/23 03/24/23 03/24/23 18:59 06:59 18:59 Intake Total 360 859.186 240 Output Total 500 200 Balance -140 659.186 240 Weight 58.5 kg Intake: Intake, IV Titration 734.186 Amount Heparin Sod,Pork in 0.45% 134.186 NaCl 25,000 unit In 0.45 % NaCl 1 250ml.bag @ 12 UNITS/KG/HR 7.224 mls/hr IV .Q24H AGUSTÍN Rx#: [id number] Sodium Chloride 0.9% 1, 600 000 ml @ 50 mls/hr IV . Q20H AGUSTÍN Rx#:[id number] Oral 360 125 240 Output: Urine 500 200 Other: # Voids 2 # Bowel Movements 1 - Labs CBC & Chem 7: 03/24/23 01:54 03/23/23 06:13 Labs: Abnormal Lab Results - Last 24 Hours (Table) 03/23/23 03/23/23 03/23/23 Range/Units 11:29 16:22 20:30 RBC (4.30-5.90) m/uL Hgb (13.0-17.5) gm/dL Hct (39.0-53.0) % RDW (11.5-15.5) % Neutrophils # (1.3-7.7) k/uL Lymphocytes # (1.0-4.8) k/uL APTT (22.0-30.0) sec POC Glucose (mg/dL) 145 H 166 H 145 H (70-110) mg/dL 03/24/23 03/24/23 03/24/23 Range/Units 01:54 01:54 06:04 RBC 3.84 L (4.30-5.90) m/uL Hgb 10.4 L (13.0-17.5) gm/dL Hct 32.9 L (39.0-53.0) % RDW 16.0 H (11.5-15.5) % Neutrophils # 8.8 H (1.3-7.7) k/uL Lymphocytes # 0.3 L (1.0-4.8) k/uL APTT 33.7 H (22.0-30.0) sec POC Glucose (mg/dL) 157 H (70-110) mg/dL Microbiology - Last 24 Hours (Table) 03/21/23 16:35 Blood Culture - Preliminary Blood 03/21/23 16:20 Blood Culture - Preliminary Blood
[2023-03-24 10:24] LABS: Basophils % (A) 0 %; Eosinophils % (A) 0 %; HCT 36.5 % (39.0-53.0); HGB 11.2 gm/dL (13.0-17.5); Hypochromasia Moderate; Lymphocytes # (A) 0.2 k/uL (1.0-4.8); Lymphocytes % (A) 2 %; MCH 26.8 pg (25.0-35.0); MCHC 30.8 g/dL (31.0-37.0); Mean Platelet Volume 7.5; Monocytes # (A) 0.5 k/uL (0-1.0); Monocytes % (A) 5 %; Neutrophils # (A) 9.6 k/uL (1.3-7.7); Neutrophils % (A) 92 %; Platelet Count 422 k/uL (150-450); RBC 4.19 m/uL (4.30-5.90); WBC 10.4 k/uL (3.8-10.6)
[2023-03-24 10:46] LABS: ALT 112 U/L (4-49); AST 100 U/L (17-59); African American GFR (CKD) 88 (>60 ml/min/1.73 sqM); Alkaline Phosphatase 158 U/L (38-126); Anion Gap 12 mmol/L; Blood Urea Nitrogen 42 mg/dL (9-20); Calcium 8.3 mg/dL (8.4-10.2); Carbon Dioxide 25 mmol/L (22-30); Chloride 97 mmol/L (98-107); Glucose 131 mg/dL (74-99); Non-African American GFR(CKD) 76 (>60 ml/min/1.73 sqM); Potassium 4.1 mmol/L (3.5-5.1); Sodium 134 mmol/L (137-145); Total Bilirubin 0.3 mg/dL (0.2-1.3); Total Protein 5.8 g/dL (6.3-8.2)
[2023-03-24 10:57] LABS: INR 1.2 (<1.2); Prothrombin Time 12.5 sec (10.0-12.5)
[2023-03-24 11:43] LABS: Glucose,Whole Blood 127 mg/dL (70-110)
[2023-03-24] MEDS: FUROSEMIDE 20 MG TAB PO SCH (12:29)
[2023-03-24 13:12] VITALS: BMI 17.4
--- NOTE | 2023-03-24 13:29 | P.PN ---
Subjective Progress Note Date: 03/24/23 This is an 87-year-old male with a previous medical history significant for 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 failure on oxygen at home, paroxysmal atrial for depression, thoracic aortic aneurysm, abdominal aortic aneurysm, chronic diastolic heart failure, chronic pu lmonary hypertension, patient presented to the emergency department at [facility] with acute shortness breath associated with increased coughing of yellowish and blood frothy sputum, has been having increased shortness breath over the last 3 days, he was complain of some fever and chills, he also was complaining of increased diarrhea over the last 24 hours, patient was seen and evaluated in emergency room and he was found to have leukocytosis, a 16,000, he also found to have coagulopathy due to his INR being elevated, patient had a chest x-ray that didn't show evidence of multilobar pneumonia as well as left lower lobe mass that he has been following with Dr. Zapata as an outpatient, patient was started on IV Solu-Medrol 60 mg IV push every 6 hours, DuoNeb 3 mg nebulization 4 times every day, he was also started on IV antibiotic in the form of Rocephin 1 g every 24 hours as well as Zithromax 500 mg orally once every day, urine Legionella antigen, mycoplasma antibody IgG and IgM, he was also started on Pulmicort 1 mg position twice every day he was admitted to the hospital he also was found to have atrial fibrillation with rapid ventricular response, he was seen in consultation by cardiology was started on Cardizem drip and he was also started back on his Tambocor 50 mg orally twice every day. 03/22: Patient is sitting up in bed is feeling better today, he continues to have some coughing and minimal from production, minimal blood he denies any fever at this time, he has no chills, he continues to be feeling weak, he denies any abdominal pain, nausea or vomiting, he has not had a bowel movement today, he continues to have swelling but this point than yesterday, his insulin, he had related to the bathroom, he denies any dizziness or lightheadedness, no syncopal episode. Monitor showing atrial fibrillation with controlled rate. 03/23. Patient seen and examined. Blood work done this morning hemoglobin 10.9, sodium 133, potassium 4.5, BUN 31, creatinine is 0.74, INR 1.1. Currently on 4 L of oxygen. Gets short of breath on exertion. Swelling of legs is i mproved 03/24. Patient seen and examined. Currently on 4 L of oxygen. Denies any shortness of breath at rest, get short of breath on exertion. REVIEW OF SYSTEMS: CONSTITUTIONAL: No fever, no malaise,. CARDIOVASCULAR: No chest pain, no palpitations, no syncope. PULMONARY: As mentioned above GASTROINTESTINAL: No diarrhea, no nausea, no vomiting, no abdominal pain. NEUROLOGICAL: No headaches, no weakness, PHYSICAL EXAMINATION: GENERAL: The patient is alert and oriented x3, not in any acute distress. Well developed, well nourished. HEENT: Pupils are round and equally reacting to light. EOMI. No scleral icterus. No conjunctival pallor. Normocephalic, atraumatic. No pharyngeal erythema. No thyromegaly. CARDIOVASCULAR: S1 and S2 present. No murmurs, rubs, or gallops. PULMONARY: Diminished breath sounds at the bases bilaterally, no wheezing or crackles. ABDOMEN: Soft, nontender, nondistended, normoactive bowel sounds. No palpable organomegaly. MUSCULOSKELETAL: No joint swelling or deformity. EXTREMITIES: No cyanosis, clubbing, or pedal edema. NEUROLOGICAL: Gross neurological examination did not reveal any focal deficits. SKIN: No rashes. Assessment and plan Leukocytosis Sepsis acute on chronic hypoxemic respiratory failure Bacterial pneumonia left lower lobe lung mass acute exacerbation of COPD. Continue oxygen supplementation Aggressive bronchopulmonary hygiene Continue breathing treatment Continue IV Rocephin Continue IV Solu-Medrol Pulmonology following Acute diastolic heart failure with severe pulmonary hypertension. Atrial fibrillation with rapid ventricular response. Continue telemetry monitoring Continue Lopressor and flecainide Continue pharmacy dose heparin and Coumadin Cardiology following Coagulopathy due to Coumadin use and sepsis. Pharmacy dose Coumadin . Thoracic aortic aneurysm. Has been under the care of cardiology CT angiography is up-to-date. Abdominal aortic aneurysm. Stable. Bullous pemphigoid. Is stable. Labs and medication were reviewed.. Continue same treatment. Continue with symptomatic treatment. Resume home medication. Monitor labs and vitals. DVT and GI prophylaxis. Further recommendations as per clinical course of the patient Dictation was produced using [employer] dictation software. please excuse any grammatical, word or spelling errors. Objective - Vital Signs Vital signs: Vital Signs Temp 97.7 F 03/24/23 12:00 Pulse 72 03/24/23 12:00 Resp 21 03/24/23 12:00 BP 127/98 03/24/23 12:00 Pulse Ox 98 03/24/23 12:00 FiO2 Intake & Output 03/23/23 03/24/23 03/24/23 18:59 06:59 18:59 Intake Total 360 866.273 0342.163 Output Total 180 711 3134 Balance -140 659.186 337.163 Weight 58.5 kg 58.5 kg Intake: Intake, IV Titration 898.074 7058.163 Amount Heparin Sod,Pork in 0.45% 134.186 97.163 NaCl 25,000 unit In 0.45 % NaCl 1 250ml.bag @ 12 UNITS/KG/HR 7.224 mls/hr IV .Q24H [facility] Rx#: [id number] Sodium Chloride 0.9% 1, 600 1000 000 ml @ 50 mls/hr IV . Q20H [facility] Rx#:[id number] Oral 360 125 240 Output: Urine 685 190 5332 Other: Voiding Method Toilet Urinal # Voids 2 # Bowel Movements 1 - Labs CBC & Chem 7: 03/24/23 09:57 03/24/23 09:57 Labs: Abnormal Lab Results - Last 24 Hours (Table) 03/23/23 03/23/23 03/24/23 Range/Units 16:22 20:30 01:54 RBC 3.84 L (4.30-5.90) m/uL Hgb 10.4 L (13.0-17.5) gm/dL Hct 32.9 L (39.0-53.0) % MCHC (31.0-37.0) g/dL RDW 16.0 H (11.5-15.5) % Neutrophils # 8.8 H (1.3-7.7) k/uL Lymphocytes # 0.3 L (1.0-4.8) k/uL INR (<1.2) APTT (22.0-30.0) sec Sodium (137-145) mmol/L Chloride (98-107) mmol/L BUN (9-20) mg/dL Glucose (74-99) mg/dL POC Glucose (mg/dL) 166 H 145 H (70-110) mg/dL Calcium (8.4-10.2) mg/dL AST (17-59) U/L ALT (4-49) U/L Alkaline Phosphatase (38-126) U/L Total Protein (6.3-8.2) g/dL Albumin (3.5-5.0) g/dL 03/24/23 03/24/23 03/24/23 Range/Units 01:54 06:04 09:57 RBC (4.30-5.90) m/uL Hgb (13.0-17.5) gm/dL Hct (39.0-53.0) % MCHC (31.0-37.0) g/dL RDW (11.5-15.5) % Neutrophils # (1.3-7.7) k/uL Lymphocytes # (1.0-4.8) k/uL INR 1.2 H (<1.2) APTT 33.7 H (22.0-30.0) sec Sodium (137-145) mmol/L Chloride (98-107) mmol/L BUN (9-20) mg/dL Glucose (74-99) mg/dL POC Glucose (mg/dL) 157 H (70-110) mg/dL Calcium (8.4-10.2) mg/dL AST (17-59) U/L ALT (4-49) U/L Alkaline Phosphatase (38-126) U/L Total Protein (6.3-8.2) g/dL Albumin (3.5-5.0) g/dL 03/24/23 03/24/23 03/24/23 Range/Units 09:57 09:57 09:57 RBC 4.19 L (4.30-5.90) m/uL Hgb 11.2 L (13.0-17.5) gm/dL Hct 36.5 L (39.0-53.0) % MCHC 30.8 L (31.0-37.0) g/dL RDW 16.0 H (11.5-15.5) % Neutrophils # 9.6 H (1.3-7.7) k/uL Lymphocytes # 0.2 L (1.0-4.8) k/uL INR (<1.2) APTT 38.0 H (22.0-30.0) sec Sodium 134 L (137-145) mmol/L Chloride 97 L (98-107) mmol/L BUN 42 H (9-20) mg/dL Glucose 131 H (74-99) mg/dL POC Glucose (mg/dL) (70-110) mg/dL Calcium 8.3 L (8.4-10.2) mg/dL AST 100 H (17-59) U/L ALT 112 H (4-49) U/L Alkaline Phosphatase 158 H (38-126) U/L Total Protein 5.8 L (6.3-8.2) g/dL Albumin 3.0 L (3.5-5.0) g/dL 03/24/23 Range/Units 11:41 RBC (4.30-5.90) m/uL Hgb (13.0-17.5) gm/dL Hct (39.0-53.0) % MCHC (31.0-37.0) g/dL RDW (11.5-15.5) % Neutrophils # (1.3-7.7) k/uL Lymphocytes # (1.0-4.8) k/uL INR (<1.2) APTT (22.0-30.0) sec Sodium (137-145) mmol/L Chloride (98-107) mmol/L BUN (9-20) mg/dL Glucose (74-99) mg/dL POC Glucose (mg/dL) 127 H (70-110) mg/dL Calcium (8.4-10.2) mg/dL AST (17-59) U/L ALT (4-49) U/L Alkaline Phosphatase (38-126) U/L Total Protein (6.3-8.2) g/dL Albumin (3.5-5.0) g/dL Microbiology - Last 24 Hours (Table) 03/21/23 18:26 Gram Stain - Final Sputum Sputum Culture - Final Pseudomonas aeruginosa 03/21/23 16:35 Blood Culture - Preliminary Blood 03/21/23 16:20 Blood Culture - Preliminary Blood
--- NOTE | 2023-03-24 14:57 | P.PN ---
Subjective Progress Note Date: 03/24/23 I am seeing this patient in new consultation today 03/22/2023 in the emergency room after presented with the chief complaints of hemoptysis and shortness of breath. Patient is a 87-year-old white male with past medical history significant for paroxysmal atrial fibrillation anticoagulated on warfarin, nitesh re oxygen dependent COPD, thoracic aortic aneurysm, and left lower lobe lung mass. He does follow with Dr. Zapata in the pulmonary office for his COPD and lung mass. Patient presented to the emergency room yesterday afternoon with a chief complaint hemoptysis. He states that he's had bloody sputum mixed with mucus for approximately 1-1/2 days. Present symptoms associated mild shortness of breath and subjective fevers. Denies chest pain, heart palpitations, lightheadedness, or syncope. He does have some bilateral 3+ lower extremity edema. Patient does take warfarin on outpatient basis. His INR was supratherapeutic at 4.7 on arrival. heart rhythm is atrial flutter with rapid ventricular response, and the patient was started on Cardizem infusion at 5 mg per hour.patient is currently sitting up in bed, on 3 L/m nasal cannula, in no acute distress. Chest x-ray demonstrates extensive new multifocal infiltrates and trace pleural effusions. CBC demonstrates a leukocytosis with a WBC count of 16.8, hemoglobin 12.7, hematocrit 40.1, platelets 385. BMP shows sodium 131, potassium 4.9, chloride 94, serum bicarb 25, BUN 33, creatinine 0.80, glucose 116. normal saline is infusing at 50 ML's per hour. Lactic acid level I.8. Negative COVID-19.the patient is empirically started on antibiotics for community-acquired pneumonia including azithromycin and Rocephin. Currently afebrile. Also, started on DuoNeb's, budesonide inhalation, and IV Solu-Medrol. Patient is stable and nontoxic. He will be admitted to the cardiac stepdown unit once bed available. The patient is seen today 03/23/2023 in follow-up on the selective care unit. He is currently sitting up at the bedside. Awake and alert in no acute distress. He is on oxygen at 4 L/m per nasal cannula. He remains in atrial fibrillation. His warfarin has been on hold for possible bronchoscopy. He'll be initiated on a heparin drip for now. He is continued on ceftriaxone. Computed tomography scan of the chest revealed acute right lower lobe superior segment airspace consolidation concerning for pneumonia. He has a stable 14 mm right lower lung peripheral pulmonary nodule that had been followed in the outpatient setting. He is continued on bronchodilators, steroids, oral diuretics. White count 12.6. Hemoglobin 10.9. Platelets 394. Sodium 133. Potassium 4.5. Bicarb 24. BUN 31. Creatinine 0.74. Glucose 162. AST 87. AST 65. The patient is seen today 03/24/2023 in follow-up on the selective care unit. He is awake and alert in no acute distress. Sitting up in bed. Feeling a bit better today compared to yesterday. He has been somewhat slow to progress. He is maintaining O2 saturations in the 90s on 4 L/m per nasal cannula. Chest x- ray continues to show a right lower lobe masslike infiltrate. Additional basilar infiltrate/atelectasis seen as well. His sputum culture is now positive for pseudomonas aeruginosa. Blood cultures revealed no growth. He is currently on ceftriaxone. Maintained on DuoNeb inhalations, Pulmicort and Perforomist inhalations, Solu-Medrol. Continued on oral diuretics. White count 10.4. Hemoglobin 11.2. Platelets 422. Sodium 134. Potassium 4.1. Bicarb 25. BUN 42. Creatinine 0.91. AST 100. ALT 112. Objective - Vital Signs Vital signs: Vital Signs Temp 97.7 F 03/24/23 12:00 Pulse 72 03/24/23 12:00 Resp 21 03/24/23 12:00 BP 127/98 03/24/23 12:00 Pulse Ox 98 03/24/23 12:00 FiO2 Intake & Output 03/23/23 03/24/23 03/24/23 18:59 06:59 18:59 Intake Total 360 585.919 8275.163 Output Total 443 272 9303 Balance -140 659.186 577.163 Weight 58.5 kg 58.5 kg Intake: Intake, IV Titration 551.622 3108.163 Amount Heparin Sod,Pork in 0.45% 134.186 97.163 NaCl 25,000 unit In 0.45 % NaCl 1 250ml.bag @ 12 UNITS/KG/HR 7.224 mls/hr IV .Q24H [facility] Rx#: [id number] Sodium Chloride 0.9% 1, 600 1000 000 ml @ 50 mls/hr IV . Q20H [facility] Rx#:[id number] Oral 360 125 480 Output: Urine 626 698 3790 Other: Voiding Method Toilet Urinal # Voids 2 # Bowel Movements 1 - Exam GENERAL EXAM: Alert, frail 87-year-old male, on 4 L nasal cannula, sitting up in bed, comfortable in no apparent distress. HEAD: Normocephalic and atraumatic EYES: Normal reaction of pupils, equal size. NOSE: Clear with pink turbinates. THROAT: No erythema or exudates. NECK: No masses, no JVD. CHEST: No chest wall deformity. LUNGS: Equal air entry with scattered rhonchi. Crackles in the right lung base. No conversational dyspnea or accessory muscle use. CVS: S1 and S2 normal with no audible murmur, irregular rhythm. No extra heart sounds ABDOMEN: No hepatosplenomegaly, active bowel sounds, no guarding or rigidity. SPINE: No scoliosis or deformity SKIN: No rashes CENTRAL NERVOUS SYSTEM: No focal deficits, tone is normal in all 4 extremities. EXTREMITIES: There is bilateral lower extremity 3+ pitting edema. No clubbing, or cyanosis. Peripheral pulses are intact. - Labs CBC & Chem 7: 03/24/23 09:57 03/24/23 09:57 Labs: Abnormal Lab Results - Last 24 Hours (Table) 03/23/23 03/23/23 03/24/23 Range/Units 16:22 20:30 01:54 RBC 3.84 L (4.30-5.90) m/uL Hgb 10.4 L (13.0-17.5) gm/dL Hct 32.9 L (39.0-53.0) % MCHC (31.0-37.0) g/dL RDW 16.0 H (11.5-15.5) % Neutrophils # 8.8 H (1.3-7.7) k/uL Lymphocytes # 0.3 L (1.0-4.8) k/uL INR (<1.2) APTT (22.0-30.0) sec Sodium (137-145) mmol/L Chloride (98-107) mmol/L BUN (9-20) mg/dL Glucose (74-99) mg/dL POC Glucose (mg/dL) 166 H 145 H (70-110) mg/dL Calcium (8.4-10.2) mg/dL AST (17-59) U/L ALT (4-49) U/L Alkaline Phosphatase (38-126) U/L Total Protein (6.3-8.2) g/dL Albumin (3.5-5.0) g/dL 03/24/23 03/24/23 03/24/23 Range/Units 01:54 06:04 09:57 RBC (4.30-5.90) m/uL Hgb (13.0-17.5) gm/dL Hct (39.0-53.0) % MCHC (31.0-37.0) g/dL RDW (11.5-15.5) % Neutrophils # (1.3-7.7) k/uL Lymphocytes # (1.0-4.8) k/uL INR 1.2 H (<1.2) APTT 33.7 H (22.0-30.0) sec Sodium (137-145) mmol/L Chloride (98-107) mmol/L BUN (9-20) mg/dL Glucose (74-99) mg/dL POC Glucose (mg/dL) 157 H (70-110) mg/dL Calcium (8.4-10.2) mg/dL AST (17-59) U/L ALT (4-49) U/L Alkaline Phosphatase (38-126) U/L Total Protein (6.3-8.2) g/dL Albumin (3.5-5.0) g/dL 03/24/23 03/24/23 03/24/23 Range/Units 09:57 09:57 09:57 RBC 4.19 L (4.30-5.90) m/uL Hgb 11.2 L (13.0-17.5) gm/dL Hct 36.5 L (39.0-53.0) % MCHC 30.8 L (31.0-37.0) g/dL RDW 16.0 H (11.5-15.5) % Neutrophils # 9.6 H (1.3-7.7) k/uL Lymphocytes # 0.2 L (1.0-4.8) k/uL INR (<1.2) APTT 38.0 H (22.0-30.0) sec Sodium 134 L (137-145) mmol/L Chloride 97 L (98-107) mmol/L BUN 42 H (9-20) mg/dL Glucose 131 H (74-99) mg/dL POC Glucose (mg/dL) (70-110) mg/dL Calcium 8.3 L (8.4-10.2) mg/dL AST 100 H (17-59) U/L ALT 112 H (4-49) U/L Alkaline Phosphatase 158 H (38-126) U/L Total Protein 5.8 L (6.3-8.2) g/dL Albumin 3.0 L (3.5-5.0) g/dL 03/24/23 Range/Units 11:41 RBC (4.30-5.90) m/uL Hgb (13.0-17.5) gm/dL Hct (39.0-53.0) % MCHC (31.0-37.0) g/dL RDW (11.5-15.5) % Neutrophils # (1.3-7.7) k/uL Lymphocytes # (1.0-4.8) k/uL INR (<1.2) APTT (22.0-30.0) sec Sodium (137-145) mmol/L Chloride (98-107) mmol/L BUN (9-20) mg/dL Glucose (74-99) mg/dL POC Glucose (mg/dL) 127 H (70-110) mg/dL Calcium (8.4-10.2) mg/dL AST (17-59) U/L ALT (4-49) U/L Alkaline Phosphatase (38-126) U/L Total Protein (6.3-8.2) g/dL Albumin (3.5-5.0) g/dL Microbiology - Last 24 Hours (Table) 03/21/23 18:26 Gram Stain - Final Sputum Sputum Culture - Final Pseudomonas aeruginosa 03/21/23 16:35 Blood Culture - Preliminary Blood 03/21/23 16:20 Blood Culture - Preliminary Blood Assessment and Plan Assessment: Acute on chronic dyspnea, secondary to multifocal community-acquired pneumonia and COPD exacerbation. Chest x-ray demonstrates new extensive multifocal pneumonia within the right midlung and bilateral bases with trace pleural effusions. Sputum culture is positive for pseudomonas aeruginosa Severe chronic obstructive pulmonary disease, with an FEV1 37% of predicted Chronic hypoxemic respiratory failure, secondary to above Leukocytosis improving Transaminitis of unclear etiology Atrial fibrillation/flutter with rapid ventricular rate, anticoagulated on heparin drip Supratherapeutic INR, maintained on warfarin outpatient basis Small hemoptysis History of right lower lobe lung mass, 14 mm, followed-up on an outpatient basis. Ascending thoracic aortic aneurysm Chronic ongoing tobacco dependence Plan: The patient was seen and evaluated Chest x-ray, labs and medications reviewed Sputum culture positive for pseudomonas aeruginosa Discontinue ceftriaxone, initiate Zosyn May or may not require bronchoscopy Warfarin on hold On heparin drip Titrate the FiO2 as tolerated Increase his activity as tolerated We will continue to follow I have personally seen and examined the patient, performed the documentation and the assessment and plan as written. Number of minutes spent on the visit: 10.
[2023-03-24] MEDS: HEPARIN SOD,PORK IN 0.45% NACL 25,000 UNIT in 0.45% NACL 1 250ML.BAG IV SCH (15:45)
[2023-03-24] MEDS: PIPERACILLIN-TAZOBACTAM 3.375 GM in SODIUM CHLORIDE 0.9% 100 ML IVPB SCH ×2 (15:45→23:30)
[2023-03-24 16:31] LABS: Glucose,Whole Blood 120 mg/dL (70-110)
[2023-03-24 20:08] LABS: Glucose,Whole Blood 164 mg/dL (70-110)
[2023-03-24] MEDS: MELATONIN 3 MG TABLET PO SCH (20:17)
[2023-03-25 05:59] LABS: Glucose,Whole Blood 125 mg/dL (70-110)
[2023-03-25] MEDS: methylPREDNISolone SOD SUCCI 125 MG/2 ML VIAL IV SCH ×4 (06:10→23:23)
[2023-03-25 06:19] LABS: Anisocytosis Slight; HCT 32.1 % (39.0-53.0); Hypochromasia Slight; MCH 26.9 pg (25.0-35.0); MCHC 31.3 g/dL (31.0-37.0); Platelet Count 383 k/uL (150-450); RBC 3.73 m/uL (4.30-5.90); RDW 16.1 % (11.5-15.5); WBC 10.3 k/uL (3.8-10.6)
[2023-03-25 06:41] LABS: ALT 102 U/L (4-49); AST 70 U/L (17-59); African American GFR (CKD) >90 (>60 ml/min/1.73 sqM); Albumin 2.7 g/dL (3.5-5.0); Alkaline Phosphatase 130 U/L (38-126); Anion Gap 7 mmol/L; Blood Urea Nitrogen 42 mg/dL (9-20); Calcium 7.8 mg/dL (8.4-10.2); Carbon Dioxide 29 mmol/L (22-30); Chloride 98 mmol/L (98-107); Glucose 129 mg/dL (74-99); Non-African American GFR(CKD) 79 (>60 ml/min/1.73 sqM); Potassium 3.5 mmol/L (3.5-5.1); Sodium 134 mmol/L (137-145); Total Bilirubin 0.3 mg/dL (0.2-1.3); Total Protein 5.2 g/dL (6.3-8.2)
[2023-03-25] MEDS: BUDESONIDE 1 MG/2 ML NEBU INHALATION SCH ×2 (07:31→19:51)
[2023-03-25] MEDS: IPRATROPIUM-ALBUTEROL 3 ML NEB INHALATION SCH ×4 (07:31→19:51)
[2023-03-25] MEDS: FORMOTEROL FUMARATE 20 MCG/2 ML NEBU INHALATION SCH ×2 (07:51→19:51)
[2023-03-25] MEDS: SPIRONOLACTONE 25 MG TAB PO SCH (08:28)
[2023-03-25] MEDS: MULTIVITAMINS, THERA 1 EACH TAB PO SCH (08:28)
[2023-03-25] MEDS: METOPROLOL TARTRATE 25 MG TAB PO SCH ×3 (08:28→19:48)
[2023-03-25] MEDS: FUROSEMIDE 20 MG TAB PO SCH (08:28)
[2023-03-25] MEDS: FLECAINIDE 50 MG TAB PO SCH ×2 (08:29→19:49)
[2023-03-25] MEDS: PIPERACILLIN-TAZOBACTAM 3.375 GM in SODIUM CHLORIDE 0.9% 100 ML IVPB SCH ×3 (08:29→23:23)
--- NOTE | 2023-03-25 10:31 | P.PN ---
Subjective Progress Note Date: 03/25/23 Principal diagnosis: Atrial fibrillation The patient is an 87-year-old gentleman with chronic obstructive pulmonary disease and chronic hypoxic respiratory failure on oxygen as well as history of thoracic aortic aneurysm and also history of paroxysmal atrial fibrillation and multiple comorbid conditions. The patient presented to the emergency department complaining of hemoptysis and increasing in the shortness of breath. He was diagnosed with COPD exacerbation. Also he was found to be in atrial fibrillation with rapid ventricular response. He is known to have paroxysmal atrial fibrillation on anticoagulation was Coumadin as well as type IC antiarrhythmic medication with the flecainide and he states he has been compliant with all of his medications. When he presented he was in atrial fibrillation with rapid ventricular response and he was started on Cardizem IV a nd continues to be on Cardizem IV at 5 mg per hour. His heart rate is around 100 bpm. He remains in atrial fibrillation. His INR was supratherapeutic at 4.7 when he presented. INR today is 2.8. The patient is known to have left upper lobe mass and he is in process of having possible computed tomography scan for further clarification. On examination he does have diminished breathing sounds bilaterally with a regular rhythm and systolic murmur at the right and upper sternal border. March 232022 The patient was seen and evaluated this morning. He is still short of breath. No more hemoptysis. The INR is stopped her relative. Meanwhile I'm going to start the patient on heparin IV until we make sure that he is not going to undergo any procedure for the mass in the lung. The computed tomography scan showed possible mass in the lung with differential diagnosis of pneumonia. Also the computed tomography scan showed thoracic aortic aneurysm. 03/24/2023 The patient was seen and evaluated this morning. She is feeling slightly better. History short of breath and he stated hypoxic. He is tachycardic. I'm going to increase the dose of metoprolol to 25 mg by mouth 3 times a day. He does have bilateral lower extremity strength ankle edema. He supposed to be on oral diuretics and that was not restarted on going to restart him back on oral diuretics. Continue IV heparin at this point to know that the patient doesn't require any procedure and at that point I will switch him back to either Coumadin or any oral anticoagulation. The examination is remarkable for some diminished breathing sounds bilaterally with bilateral lower extremity strength ankle edema. The echo showed preserved systolic function was mild to moderate valvular abnormalities and dilated right ventricle. 03/25/2023 The patient was seen this morning. He continues to be short of breath. No pain in the chest. Hemodynamically he is stable. He continues to be on heparin IV. I would consider starting the patient back on Coumadin and there is no need or any invasive procedure like bronchoscopy and biopsy needed. Examination is remarkable for diminished breathing sounds bilaterally and systolic murmur at the right upper sternal border Assessment COPD exacerbation Lung mass currently is under investigation Hemoptysis Supratherapeutic INR Paroxysmal atrial fibrillation Atrial fibrillation with RVR Valvular abnormalities Plan Continue the current medical regimen Restart the patient back on Coumadin if there is no need for any invasive procedure Follow-up with the patient Objective - Vital Signs Vital signs: Vital Signs Temp 97.5 F L 03/25/23 08:25 Pulse 96 03/25/23 08:25 Resp 19 03/25/23 08:25 BP 130/76 03/25/23 08:25 Pulse Ox 92 L 03/25/23 08:25 FiO2 Intake & Output 03/24/23 03/25/23 03/25/23 18:59 06:59 18:59 Intake Total 1835.814 54.973 148.36 Output Total 1000 400 Balance 835.814 -345.027 148.36 Weight 58.5 kg Intake: Intake, IV Titration 1115.814 54.973 148.36 Amount Heparin Sod,Pork in 0.45% 115.814 54.973 148.36 NaCl 25,000 unit In 0.45 % NaCl 1 250ml.bag @ 12 UNITS/KG/HR 7.224 mls/hr IV .Q24H [facility] Rx#: [id number] Sodium Chloride 0.9% 1, 1000 000 ml @ 50 mls/hr IV . Q20H [facility] Rx#:[id number] Oral 720 Output: Urine 1000 400 Other: Voiding Method Toilet Toilet Urinal Urinal # Voids 1 - Labs CBC & Chem 7: 03/25/23 05:02 03/25/23 05:02 Labs: Abnormal Lab Results - Last 24 Hours (Table) 03/24/23 03/24/23 03/24/23 Range/Units 09:57 09:57 09:57 RBC (4.30-5.90) m/uL Hgb (13.0-17.5) gm/dL Hct (39.0-53.0) % RDW (11.5-15.5) % INR 1.2 H (<1.2) APTT 38.0 H (22.0-30.0) sec Sodium 134 L (137-145) mmol/L Chloride 97 L (98-107) mmol/L BUN 42 H (9-20) mg/dL Glucose 131 H (74-99) mg/dL POC Glucose (mg/dL) (70-110) mg/dL Calcium 8.3 L (8.4-10.2) mg/dL AST 100 H (17-59) U/L ALT 112 H (4-49) U/L Alkaline Phosphatase 158 H (38-126) U/L Total Protein 5.8 L (6.3-8.2) g/dL Albumin 3.0 L (3.5-5.0) g/dL 03/24/23 03/24/23 03/24/23 Range/Units 11:41 16:29 18:02 RBC (4.30-5.90) m/uL Hgb (13.0-17.5) gm/dL Hct (39.0-53.0) % RDW (11.5-15.5) % INR (<1.2) APTT 35.1 H (22.0-30.0) sec Sodium (137-145) mmol/L Chloride (98-107) mmol/L BUN (9-20) mg/dL Glucose (74-99) mg/dL POC Glucose (mg/dL) 127 H 120 H (70-110) mg/dL Calcium (8.4-10.2) mg/dL AST (17-59) U/L ALT (4-49) U/L Alkaline Phosphatase (38-126) U/L Total Protein (6.3-8.2) g/dL Albumin (3.5-5.0) g/dL 03/24/23 03/25/23 03/25/23 Range/Units 20:07 05:02 05:02 RBC 3.73 L (4.30-5.90) m/uL Hgb 10.0 L (13.0-17.5) gm/dL Hct 32.1 L (39.0-53.0) % RDW 16.1 H (11.5-15.5) % INR (<1.2) APTT (22.0-30.0) sec Sodium 134 L (137-145) mmol/L Chloride (98-107) mmol/L BUN 42 H (9-20) mg/dL Glucose 129 H (74-99) mg/dL POC Glucose (mg/dL) 164 H (70-110) mg/dL Calcium 7.8 L (8.4-10.2) mg/dL AST 70 H (17-59) U/L ALT 102 H (4-49) U/L Alkaline Phosphatase 130 H (38-126) U/L Total Protein 5.2 L (6.3-8.2) g/dL Albumin 2.7 L (3.5-5.0) g/dL 03/25/23 03/25/23 Range/Units 05:02 05:58 RBC (4.30-5.90) m/uL Hgb (13.0-17.5) gm/dL Hct (39.0-53.0) % RDW (11.5-15.5) % INR (<1.2) APTT 68.3 H (22.0-30.0) sec Sodium (137-145) mmol/L Chloride (98-107) mmol/L BUN (9-20) mg/dL Glucose (74-99) mg/dL POC Glucose (mg/dL) 125 H (70-110) mg/dL Calcium (8.4-10.2) mg/dL AST (17-59) U/L ALT (4-49) U/L Alkaline Phosphatase (38-126) U/L Total Protein (6.3-8.2) g/dL Albumin (3.5-5.0) g/dL Microbiology - Last 24 Hours (Table) 03/21/23 16:35 Blood Culture - Preliminary Blood 03/21/23 16:20 Blood Culture - Preliminary Blood 03/21/23 18:26 Gram Stain - Final Sputum Sputum Culture - Final Pseudomonas aeruginosa
[2023-03-25] MEDS: HEPARIN SOD,PORK IN 0.45% NACL 25,000 UNIT in 0.45% NACL 1 250ML.BAG IV SCH (11:19)
[2023-03-25] MEDS: DOCUSATE 100 MG CAP PO SCH ×2 (11:19→19:48)
[2023-03-25] MEDS: polyethylene glycoL 3350 17 GM POWD.PACK PO SCH (11:19)
[2023-03-25 11:52] LABS: Glucose,Whole Blood 127 mg/dL (70-110)
--- NOTE | 2023-03-25 13:01 | P.PN ---
Subjective Progress Note Date: 03/25/23 This is an 87-year-old male with a previous medical history significant for 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 failure on oxygen at home, paroxysmal atrial for depression, thoracic aortic aneurysm, abdominal aortic aneurysm, chronic diastolic heart failure, chronic pu lmonary hypertension, patient presented to the emergency department at [facility] with acute shortness breath associated with increased coughing of yellowish and blood frothy sputum, has been having increased shortness breath over the last 3 days, he was complain of some fever and chills, he also was complaining of increased diarrhea over the last 24 hours, patient was seen and evaluated in emergency room and he was found to have leukocytosis, a 16,000, he also found to have coagulopathy due to his INR being elevated, patient had a chest x-ray that didn't show evidence of multilobar pneumonia as well as left lower lobe mass that he has been following with Dr. Zapata as an outpatient, patient was started on IV Solu-Medrol 60 mg IV push every 6 hours, DuoNeb 3 mg nebulization 4 times every day, he was also started on IV antibiotic in the form of Rocephin 1 g every 24 hours as well as Zithromax 500 mg orally once every day, urine Legionella antigen, mycoplasma antibody IgG and IgM, he was also started on Pulmicort 1 mg position twice every day he was admitted to the hospital he also was found to have atrial fibrillation with rapid ventricular response, he was seen in consultation by cardiology was started on Cardizem drip and he was also started back on his Tambocor 50 mg orally twice every day. 03/22: Patient is sitting up in bed is feeling better today, he continues to have some coughing and minimal from production, minimal blood he denies any fever at this time, he has no chills, he continues to be feeling weak, he denies any abdominal pain, nausea or vomiting, he has not had a bowel movement today, he continues to have swelling but this point than yesterday, his insulin, he had related to the bathroom, he denies any dizziness or lightheadedness, no syncopal episode. Monitor showing atrial fibrillation with controlled rate. 03/23. Patient seen and examined. Blood work done this morning hemoglobin 10.9, sodium 133, potassium 4.5, BUN 31, creatinine is 0.74, INR 1.1. Currently on 4 L of oxygen. Gets short of breath on exertion. Swelling of legs is i mproved 03/24. Patient seen and examined. Currently on 4 L of oxygen. Denies any shortness of breath at rest, get short of breath on exertion. 03/25. Patient seen and examined. Sitting upright at the edge of the bed. States swelling of legs has resolved. Denies any chest pain. Gets short of breath on exertion. REVIEW OF SYSTEMS: CONSTITUTIONAL: No fever, no malaise,. CARDIOVASCULAR: No chest pain, no palpitations, no syncope. PULMONARY: As mentioned above GASTROINTESTINAL: No diarrhea, no nausea, no vomiting, no abdominal pain. NEUROLOGICAL: No headaches, no weakness, PHYSICAL EXAMINATION: GENERAL: The patient is alert and oriented x3, not in any acute distress. Well developed, well nourished. HEENT: Pupils are round and equally reacting to light. EOMI. No scleral icterus. No conjunctival pallor. Normocephalic, atraumatic. No pharyngeal erythema. No thyromegaly. CARDIOVASCULAR: S1 and S2 present. No murmurs, rubs, or gallops. PULMONARY: Diminished breath sounds at the bases bilaterally, no wheezing or crackles. ABDOMEN: Soft, nontender, nondistended, normoactive bowel sounds. No palpable organomegaly. MUSCULOSKELETAL: No joint swelling or deformity. EXTREMITIES: No cyanosis, clubbing, or pedal edema. NEUROLOGICAL: Gross neurological examination did not reveal any focal deficits. SKIN: No rashes. Assessment and plan Leukocytosis Sepsis acute on chronic hypoxemic respiratory failure Bacterial pneumonia left lower lobe lung mass acute exacerbation of COPD. Continue oxygen supplementation Aggressive bronchopulmonary hygiene Continue breathing treatment Continue IV Zosyn Continue IV Solu-Medrol Pulmonology following, if repeat chest x-ray does not improve, pulmonology will consider doing bronchoscopy Acute diastolic heart failure with severe pulmonary hypertension. Atrial fibrillation with rapid ventricular response. Continue telemetry monitoring Continue Lopressor and flecainide Continue pharmacy dose heparin and Coumadin Cardiology following Coagulopathy due to Coumadin use and sepsis. Pharmacy dose Coumadin . Thoracic aortic aneurysm. Has been under the care of cardiology CT angiography is up-to-date. Abdominal aortic aneurysm. Stable. Bullous pemphigoid. Is stable. Labs and medication were reviewed.. Continue same treatment. Continue with symptomatic treatment. Resume home medication. Monitor labs and vitals. DVT and GI prophylaxis. Further recommendations as per clinical course of the patient Dictation was produced using [employer] dictation software. please excuse any grammatical, word or spelling errors. Objective - Vital Signs Vital signs: Vital Signs Temp 97.5 F L 03/25/23 08:25 Pulse 96 03/25/23 11:36 Resp 18 03/25/23 11:20 BP 122/74 03/25/23 11:20 Pulse Ox 98 03/25/23 11:20 FiO2 Intake & Output 03/24/23 03/25/23 03/25/23 18:59 06:59 18:59 Intake Total 1835.814 54.973 313.027 Output Total 1000 400 Balance 835.814 -345.027 313.027 Weight 58.5 kg Intake: Intake, IV Titration 1115.814 54.973 195.027 Amount Heparin Sod,Pork in 0.45% 115.814 54.973 195.027 NaCl 25,000 unit In 0.45 % NaCl 1 250ml.bag @ 12 UNITS/KG/HR 7.224 mls/hr IV .Q24H AGUST[facility]N Rx#: [id number] Sodium Chloride 0.9% 1, 1000 000 ml @ 50 mls/hr IV . Q20H AGUST[facility]N Rx#:[id number] Oral 720 118 Output: Urine 1000 400 Other: Voiding Method Toilet Toilet Urinal Urinal # Voids 1 2 - Labs CBC & Chem 7: 03/25/23 05:02 03/25/23 05:02 Labs: Abnormal Lab Results - Last 24 Hours (Table) 03/24/23 03/24/23 03/24/23 Range/Units 16:29 18:02 20:07 RBC (4.30-5.90) m/uL Hgb (13.0-17.5) gm/dL Hct (39.0-53.0) % RDW (11.5-15.5) % APTT 35.1 H (22.0-30.0) sec Sodium (137-145) mmol/L BUN (9-20) mg/dL Glucose (74-99) mg/dL POC Glucose (mg/dL) 120 H 164 H (70-110) mg/dL Calcium (8.4-10.2) mg/dL AST (17-59) U/L ALT (4-49) U/L Alkaline Phosphatase (38-126) U/L Total Protein (6.3-8.2) g/dL Albumin (3.5-5.0) g/dL 03/25/23 03/25/23 03/25/23 Range/Units 05:02 05:02 05:02 RBC 3.73 L (4.30-5.90) m/uL Hgb 10.0 L (13.0-17.5) gm/dL Hct 32.1 L (39.0-53.0) % RDW 16.1 H (11.5-15.5) % APTT 68.3 H (22.0-30.0) sec Sodium 134 L (137-145) mmol/L BUN 42 H (9-20) mg/dL Glucose 129 H (74-99) mg/dL POC Glucose (mg/dL) (70-110) mg/dL Calcium 7.8 L (8.4-10.2) mg/dL AST 70 H (17-59) U/L ALT 102 H (4-49) U/L Alkaline Phosphatase 130 H (38-126) U/L Total Protein 5.2 L (6.3-8.2) g/dL Albumin 2.7 L (3.5-5.0) g/dL 03/25/23 03/25/23 Range/Units 05:58 11:50 RBC (4.30-5.90) m/uL Hgb (13.0-17.5) gm/dL Hct (39.0-53.0) % RDW (11.5-15.5) % APTT (22.0-30.0) sec Sodium (137-145) mmol/L BUN (9-20) mg/dL Glucose (74-99) mg/dL POC Glucose (mg/dL) 125 H 127 H (70-110) mg/dL Calcium (8.4-10.2) mg/dL AST (17-59) U/L ALT (4-49) U/L Alkaline Phosphatase (38-126) U/L Total Protein (6.3-8.2) g/dL Albumin (3.5-5.0) g/dL Microbiology - Last 24 Hours (Table) 03/21/23 16:35 Blood Culture - Preliminary Blood 03/21/23 16:20 Blood Culture - Preliminary Blood 03/21/23 18:26 Gram Stain - Final Sputum Sputum Culture - Final Pseudomonas aeruginosa
--- NOTE | 2023-03-25 15:07 | P.PN ---
Subjective Progress Note Date: 03/25/23 Principal diagnosis: Acute on chronic hypoxic respiratory failure with severe COPD and pseudomonal pneumonia involving right lung. And hemoptysis I am seeing this patient in new consultation today 03/22/2023 in the emergency room after presented with the chief complaints of hemoptysis and shortness of breath. Patient is a 87-year-old white male with past medical history signi ficant for paroxysmal atrial fibrillation anticoagulated on warfarin, severe oxygen dependent COPD, thoracic aortic aneurysm, and left lower lobe lung mass. He does follow with Dr. Zapata in the pulmonary office for his COPD and lung mass. Patient presented to the emergency room yesterday afternoon with a chief complaint hemoptysis. He states that he's had bloody sputum mixed with mucus for approximately 1-1/2 days. Present symptoms associated mild shortness of breath and subjective fevers. Denies chest pain, heart palpitations, lightheadedness, or syncope. He does have some bilateral 3+ lower extremity edema. Patient does take warfarin on outpatient basis. His INR was supratherapeutic at 4.7 on arrival. heart rhythm is atrial flutter with rapid ventricular response, and the patient was started on Cardizem infusion at 5 mg per hour.patient is currently sitting up in bed, on 3 L/m nasal cannula, in no acute distress. Chest x-ray demonstrates extensive new multifocal infiltrates and trace pleural effusions. CBC demonstrates a leukocytosis with a WBC count of 16.8, hemoglobin 12.7, hematocrit 40.1, platelets 385. BMP shows sodium 131, potassium 4.9, chloride 94, serum bicarb 25, BUN 33, creatinine 0.80, glucose 116. normal saline is infusing at 50 ML's per hour. Lactic acid level I.8. Negative COVID-19.the patient is empirically started on antibiotics for community-acquired pneumonia including azithromycin and Rocephin. Currently afebrile. Also, started on DuoNeb's, budesonide inhalation, and IV Solu-Medrol. Patient is stable and nontoxic. He will be admitted to the cardiac stepdown unit once bed available. The patient is seen today 03/23/2023 in follow-up on the selective care unit. He is currently sitting up at the bedside. Awake and alert in no acute distress. He is on oxygen at 4 L/m per nasal cannula. He remains in atrial fibrillation. His warfarin has been on hold for possible bronchoscopy. He'll be initiated on a heparin drip for now. He is continued on ceftriaxone. Computed tomography scan of the chest revealed acute right lower lobe superior segment airspace consolidation concerning for pneumonia. He has a stable 14 mm right lower lung peripheral pulmonary nodule that had been followed in the outpatient setting. He is continued on bronchodilators, steroids, oral diuretics. White count 12.6. Hemoglobin 10.9. Platelets 394. Sodium 133. Potassium 4.5. Bicarb 24. BUN 31. Creatinine 0.74. Glucose 162. AST 87. AST 65. The patient is seen today 03/24/2023 in follow-up on the selective care unit. He is awake and alert in no acute distress. Sitting up in bed. Feeling a bit better today compared to yesterday. He has been somewhat slow to progress. He is maintaining O2 saturations in the 90s on 4 L/m per nasal cannula. Chest x- ray continues to show a right lower lobe masslike infiltrate. Additional basilar infiltrate/atelectasis seen as well. His sputum culture is now positive for pseudomonas aeruginosa. Blood cultures revealed no growth. He is currently on ceftriaxone. Maintained on DuoNeb inhalations, Pulmicort and Perforomist inhalations, Solu-Medrol. Continued on oral diuretics. White count 10.4. Hemo globin 11.2. Platelets 422. Sodium 134. Potassium 4.1. Bicarb 25. BUN 42. Creatinine 0.91. AST 100. ALT 112. Patient was seen today on 03/25/2023, no more bright red blood/hemoptysis, however the patient clearly has some brownish/chocolate like colored sputum intermittently. Patient is on heparin, and his sputum was positive for pseudomonas aeruginosa hence was started the patient yesterday on Zosyn. Coumadin remains on hold. Patient remains on bronchodilators, he also remains on steroids, and I'm still wondering whether the patient truly needs to have bronchoscopy, most likely at this point he does not need to be bronchoscoped especially if he clinically improves and his chest x-ray shows improvement. Again I believe the findings in the right lung are mostly consolidation f indings/pneumonia findings are than malignancy related findings. Although that is not entirely ruled out. WBC count today is 10.3 hemoglobin is 10 basic metabolic profile is normal renal profile is normal Objective - Vital Signs Vital signs: Vital Signs Temp 97.5 F L 03/25/23 08:25 Pulse 96 03/25/23 11:36 Resp 18 03/25/23 11:20 BP 122/74 03/25/23 11:20 Pulse Ox 98 03/25/23 11:20 FiO2 Intake & Output 03/24/23 03/25/23 03/25/23 18:59 06:59 18:59 Intake Total 1835.814 54.973 431.027 Output Total 1000 400 Balance 835.814 -345.027 431.027 Weight 58.5 kg Intake: Intake, IV Titration 1115.814 54.973 195.027 Amount Heparin Sod,Pork in 0.45% 115.814 54.973 195.027 NaCl 25,000 unit In 0.45 % NaCl 1 250ml.bag @ 12 UNITS/KG/HR 7.224 mls/hr IV .Q24H AGUST[facility]N Rx#: [id number] Sodium Chloride 0.9% 1, 1000 000 ml @ 50 mls/hr IV . Q20H AGUST[facility]N Rx#:[id number] Oral 720 236 Output: Urine 1000 400 Other: Voiding Method Toilet Toilet Urinal Urinal # Voids 1 2 - Exam GENERAL EXAM: Revealed an 87-year-old white male in no distress HEAD: Normocephalic and atraumatic EENT: PERRLA, EOMI, nonicteric, no neck masses, no JVD. CHEST: No chest wall deformity. LUNGS: Scattered rhonchi noted bilaterally CVS: S1 and S2 normal with no audible murmur, irregular rhythm. No extra heart sounds ABDOMEN: No hepatosplenomegaly, active bowel sounds, no guarding or rigidity. SKIN: No rashes CENTRAL NERVOUS SYSTEM: Alert oriented 3 focal deficit Psychiatric: Normal mood affect and normal mental status examination. EXTREMITIES: 3+ bipedal edema - Labs CBC & Chem 7: 03/25/23 05:02 03/25/23 05:02 Labs: Abnormal Lab Results - Last 24 Hours (Table) 03/24/23 03/24/23 03/24/23 Range/Units 16:29 18:02 20:07 RBC (4.30-5.90) m/uL Hgb (13.0-17.5) gm/dL Hct (39.0-53.0) % RDW (11.5-15.5) % APTT 35.1 H (22.0-30.0) sec Sodium (137-145) mmol/L BUN (9-20) mg/dL Glucose (74-99) mg/dL POC Glucose (mg/dL) 120 H 164 H (70-110) mg/dL Calcium (8.4-10.2) mg/dL AST (17-59) U/L ALT (4-49) U/L Alkaline Phosphatase (38-126) U/L Total Protein (6.3-8.2) g/dL Albumin (3.5-5.0) g/dL 03/25/23 03/25/23 03/25/23 Range/Units 05:02 05:02 05:02 RBC 3.73 L (4.30-5.90) m/uL Hgb 10.0 L (13.0-17.5) gm/dL Hct 32.1 L (39.0-53.0) % RDW 16.1 H (11.5-15.5) % APTT 68.3 H (22.0-30.0) sec Sodium 134 L (137-145) mmol/L BUN 42 H (9-20) mg/dL Glucose 129 H (74-99) mg/dL POC Glucose (mg/dL) (70-110) mg/dL Calcium 7.8 L (8.4-10.2) mg/dL AST 70 H (17-59) U/L ALT 102 H (4-49) U/L Alkaline Phosphatase 130 H (38-126) U/L Total Protein 5.2 L (6.3-8.2) g/dL Albumin 2.7 L (3.5-5.0) g/dL 03/25/23 03/25/23 Range/Units 05:58 11:50 RBC (4.30-5.90) m/uL Hgb (13.0-17.5) gm/dL Hct (39.0-53.0) % RDW (11.5-15.5) % APTT (22.0-30.0) sec Sodium (137-145) mmol/L BUN (9-20) mg/dL Glucose (74-99) mg/dL POC Glucose (mg/dL) 125 H 127 H (70-110) mg/dL Calcium (8.4-10.2) mg/dL AST (17-59) U/L ALT (4-49) U/L Alkaline Phosphatase (38-126) U/L Total Protein (6.3-8.2) g/dL Albumin (3.5-5.0) g/dL Microbiology - Last 24 Hours (Table) 03/21/23 16:35 Blood Culture - Preliminary Blood 03/21/23 16:20 Blood Culture - Preliminary Blood 03/21/23 18:26 Gram Stain - Final Sputum Sputum Culture - Final Pseudomonas aeruginosa Assessment and Plan Assessment: Impression: Acute on chronic hypoxic respiratory failure, multifactorial Acute Pseudomonas pneumonia Hemoptysis secondary to above History of lung nodule being followed by Dr. zapata on outpatient basis Transaminitis of unclear etiology Supratherapeutic INR on presentation patient was on warfarin which is presently on hold and he is receiving heparin instead as he may still require bronchoscopy History of ascending aortic thoracic aortic aneurysm Tobacco dependence syndrome Acute exacerbation Severe COPD FEV1 of 37% Recommendation: Continue Zosyn Continue bronchodilators Continue oxygen and titrate accordingly Repeat chest x-ray on Monday and decide whether the patient truly needs to have bronchoscopy or not. Continue heparin for now until a final decision is made whether the patient needs bronchoscopy and eventually transition to Coumadin or eliquis. We will continue to follow. Increase activity as tolerated Time with Patient: Less than 30
[2023-03-25 16:36] LABS: Glucose,Whole Blood 178 mg/dL (70-110)
[2023-03-25] MEDS: MELATONIN 3 MG TABLET PO SCH (19:48)
[2023-03-25 20:08] LABS: Glucose,Whole Blood 138 mg/dL (70-110)
[2023-03-25] MEDS: ACETAMINOPHEN TAB 500 MG TAB PO PRN (21:55)
[2023-03-25] MEDS: IPRATROPIUM-ALBUTEROL 3 ML NEB INHALATION PRN (23:58)
[2023-03-26] MEDS: IPRATROPIUM-ALBUTEROL 3 ML NEB INHALATION PRN (04:36)
[2023-03-26 06:05] LABS: Glucose,Whole Blood 175 mg/dL (70-110)
[2023-03-26] MEDS: methylPREDNISolone SOD SUCCI 125 MG/2 ML VIAL IV SCH ×4 (06:36→23:50)
[2023-03-26] MEDS: METOPROLOL TARTRATE 25 MG TAB PO SCH ×3 (06:36→21:27)
[2023-03-26] MEDS: SPIRONOLACTONE 25 MG TAB PO SCH (08:27)
[2023-03-26] MEDS: MULTIVITAMINS, THERA 1 EACH TAB PO SCH (08:27)
[2023-03-26] MEDS: PIPERACILLIN-TAZOBACTAM 3.375 GM in SODIUM CHLORIDE 0.9% 100 ML IVPB SCH ×3 (08:27→23:50)
[2023-03-26] MEDS: polyethylene glycoL 3350 17 GM POWD.PACK PO SCH (08:27)
[2023-03-26] MEDS: DOCUSATE 100 MG CAP PO SCH ×2 (08:27→21:27)
[2023-03-26] MEDS: FUROSEMIDE 20 MG TAB PO SCH (08:27)
[2023-03-26] MEDS: FLECAINIDE 50 MG TAB PO SCH ×2 (08:27→21:27)
[2023-03-26] MEDS: BUDESONIDE 1 MG/2 ML NEBU INHALATION SCH ×2 (08:41→20:38)
[2023-03-26] MEDS: IPRATROPIUM-ALBUTEROL 3 ML NEB INHALATION SCH ×4 (08:41→20:38)
[2023-03-26] MEDS: FORMOTEROL FUMARATE 20 MCG/2 ML NEBU INHALATION SCH ×2 (08:41→20:38)
[2023-03-26 09:42] LABS: HCT 38.4 % (39.0-53.0); HGB 11.8 gm/dL (13.0-17.5); Hypochromasia Moderate; MCH 26.7 pg (25.0-35.0); MCHC 30.8 g/dL (31.0-37.0); MCV 86.5 fL (80.0-100.0); Platelet Count 438 k/uL (150-450); RBC 4.44 m/uL (4.30-5.90); RDW 15.8 % (11.5-15.5); WBC 17.1 k/uL (3.8-10.6)
[2023-03-26 10:45] LABS: ALT 156 U/L (4-49); AST 92 U/L (17-59); African American GFR (CKD) >90 (>60 ml/min/1.73 sqM); Albumin 3.1 g/dL (3.5-5.0); Alkaline Phosphatase 142 U/L (38-126); Anion Gap 12 mmol/L; Blood Urea Nitrogen 31 mg/dL (9-20); Calcium 8.2 mg/dL (8.4-10.2); Carbon Dioxide 28 mmol/L (22-30); Chloride 93 mmol/L (98-107); Glucose 130 mg/dL (74-99); Non-African American GFR(CKD) 82 (>60 ml/min/1.73 sqM); Potassium 3.8 mmol/L (3.5-5.1); Sodium 133 mmol/L (137-145); Total Bilirubin 0.5 mg/dL (0.2-1.3); Total Protein 5.9 g/dL (6.3-8.2)
--- NOTE | 2023-03-26 11:19 | P.PN ---
Subjective Progress Note Date: 03/26/23 Principal diagnosis: Atrial fibrillation The patient is an 87-year-old gentleman with chronic obstructive pulmonary disease and chronic hypoxic respiratory failure on oxygen as well as history of thoracic aortic aneurysm and also history of paroxysmal atrial fibrillation and multiple comorbid conditions. The patient presented to the emergency department complaining of hemoptysis and increasing in the shortness of breath. He was diagnosed with COPD exacerbation. Also he was found to be in atrial fibrillation with rapid ventricular response. He is known to have paroxysmal atrial fibrillation on anticoagulation was Coumadin as well as type IC antiarrhythmic medication with the flecainide and he states he has been compliant with all of his medications. When he presented he was in atrial fibrillation with rapid ventricular response and he was started on Cardizem IV a nd continues to be on Cardizem IV at 5 mg per hour. His heart rate is around 100 bpm. He remains in atrial fibrillation. His INR was supratherapeutic at 4.7 when he presented. INR today is 2.8. The patient is known to have left upper lobe mass and he is in process of having possible computed tomography scan for further clarification. On examination he does have diminished breathing sounds bilaterally with a regular rhythm and systolic murmur at the right and upper sternal border. March 232022 The patient was seen and evaluated this morning. He is still short of breath. No more hemoptysis. The INR is stopped her relative. Meanwhile I'm going to start the patient on heparin IV until we make sure that he is not going to undergo any procedure for the mass in the lung. The computed tomography scan showed possible mass in the lung with differential diagnosis of pneumonia. Also the computed tomography scan showed thoracic aortic aneurysm. 03/24/2023 The patient was seen and evaluated this morning. She is feeling slightly better. History short of breath and he stated hypoxic. He is tachycardic. I'm going to increase the dose of metoprolol to 25 mg by mouth 3 times a day. He does have bilateral lower extremity strength ankle edema. He supposed to be on oral diuretics and that was not restarted on going to restart him back on oral diuretics. Continue IV heparin at this point to know that the patient doesn't require any procedure and at that point I will switch him back to either Coumadin or any oral anticoagulation. The examination is remarkable for some diminished breathing sounds bilaterally with bilateral lower extremity strength ankle edema. The echo showed preserved systolic function was mild to moderate valvular abnormalities and dilated right ventricle. 03/25/2023 The patient was seen this morning. He continues to be short of breath. No pain in the chest. Hemodynamically he is stable. He continues to be on heparin IV. I would consider starting the patient back on Coumadin and there is no need or any invasive procedure like bronchoscopy and biopsy needed. Examination is remarkable for diminished breathing sounds bilaterally and systolic murmur at the right upper sternal border 03/26/2023 The patient was seen and evaluated this morning. He still short of breath. The shortness of breath has somewhat slightly improved. No chest pain and no chest discomfort and no dizziness or lightheadedness and no presyncope or syncope. The examination is remarkable for diminished breathing sounds bilaterally that has somewhat slightly improved. He does also have a systolic murmur at the right upper sternal border. He continues to be on heparin IV for possible bronchoscopy and possible biopsy tomorrow after that he can be switched into oral anticoagulation and he was on Coumadin before Assessment COPD exacerbation Lung mass currently is under investigation Hemoptysis Supratherapeutic INR Paroxysmal atrial fibrillation Atrial fibrillation with RVR Valvular abnormalities Plan Continue the current medical regimen Continue IV heparin Consider switching the patient to oral anticoagulation after the bronchoscopy tomorrow Objective - Vital Signs Vital signs: Vital Signs Temp 97.7 F 03/26/23 08:25 Pulse 95 03/26/23 08:25 Resp 20 03/26/23 08:25 BP 141/94 03/26/23 08:25 Pulse Ox 99 03/26/23 08:25 FiO2 Intake & Output 03/25/23 03/26/23 03/26/23 18:59 06:59 18:59 Intake Total 431.027 Output Total 150 350 Balance 281.027 -350 Intake: Intake, IV Titration 195.027 Amount Heparin Sod,Pork in 0.45% 195.027 NaCl 25,000 unit In 0.45 % NaCl 1 250ml.bag @ 12 UNITS/KG/HR 7.224 mls/hr IV .Q24H [facility]N Rx#: [id number] Oral 236 Output: Urine 150 350 Other: Voiding Method Toilet Toilet Toilet Urinal Urinal Urinal # Voids 2 - Labs CBC & Chem 7: 03/26/23 09:06 03/26/23 09:06 Labs: Abnormal Lab Results - Last 24 Hours (Table) 03/25/23 03/25/23 03/25/23 Range/Units 11:50 16:33 20:07 WBC (3.8-10.6) k/uL Hgb (13.0-17.5) gm/dL Hct (39.0-53.0) % MCHC (31.0-37.0) g/dL RDW (11.5-15.5) % APTT (22.0-30.0) sec Sodium (137-145) mmol/L Chloride (98-107) mmol/L BUN (9-20) mg/dL Glucose (74-99) mg/dL POC Glucose (mg/dL) 127 H 178 H 138 H (70-110) mg/dL Calcium (8.4-10.2) mg/dL AST (17-59) U/L ALT (4-49) U/L Alkaline Phosphatase (38-126) U/L Total Protein (6.3-8.2) g/dL Albumin (3.5-5.0) g/dL 03/26/23 03/26/23 03/26/23 Range/Units 06:04 09:06 09:06 WBC 17.1 H (3.8-10.6) k/uL Hgb 11.8 L (13.0-17.5) gm/dL Hct 38.4 L (39.0-53.0) % MCHC 30.8 L (31.0-37.0) g/dL RDW 15.8 H (11.5-15.5) % APTT 76.6 H (22.0-30.0) sec Sodium (137-145) mmol/L Chloride (98-107) mmol/L BUN (9-20) mg/dL Glucose (74-99) mg/dL POC Glucose (mg/dL) 175 H (70-110) mg/dL Calcium (8.4-10.2) mg/dL AST (17-59) U/L ALT (4-49) U/L Alkaline Phosphatase (38-126) U/L Total Protein (6.3-8.2) g/dL Albumin (3.5-5.0) g/dL 03/26/23 Range/Units 09:06 WBC (3.8-10.6) k/uL Hgb (13.0-17.5) gm/dL Hct (39.0-53.0) % MCHC (31.0-37.0) g/dL RDW (11.5-15.5) % APTT (22.0-30.0) sec Sodium 133 L (137-145) mmol/L Chloride 93 L (98-107) mmol/L BUN 31 H (9-20) mg/dL Glucose 130 H (74-99) mg/dL POC Glucose (mg/dL) (70-110) mg/dL Calcium 8.2 L (8.4-10.2) mg/dL AST 92 H (17-59) U/L ALT 156 H (4-49) U/L Alkaline Phosphatase 142 H (38-126) U/L Total Protein 5.9 L (6.3-8.2) g/dL Albumin 3.1 L (3.5-5.0) g/dL
[2023-03-26 11:31] LABS: Glucose,Whole Blood 125 mg/dL (70-110)
[2023-03-26] MEDS: HEPARIN SOD,PORK IN 0.45% NACL 25,000 UNIT in 0.45% NACL 1 250ML.BAG IV SCH ×2 (11:39→22:44)
--- NOTE | 2023-03-26 12:46 | P.PN ---
Subjective Progress Note Date: 03/26/23 This is an 87-year-old male with a previous medical history significant for 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 failure on oxygen at home, paroxysmal atrial for depression, thoracic aortic aneurysm, abdominal aortic aneurysm, chronic diastolic heart failure, chronic pu lmonary hypertension, patient presented to the emergency department at [facility] with acute shortness breath associated with increased coughing of yellowish and blood frothy sputum, has been having increased shortness breath over the last 3 days, he was complain of some fever and chills, he also was complaining of increased diarrhea over the last 24 hours, patient was seen and evaluated in emergency room and he was found to have leukocytosis, a 16,000, he also found to have coagulopathy due to his INR being elevated, patient had a chest x-ray that didn't show evidence of multilobar pneumonia as well as left lower lobe mass that he has been following with Dr. Zapata as an outpatient, patient was started on IV Solu-Medrol 60 mg IV push every 6 hours, DuoNeb 3 mg nebulization 4 times every day, he was also started on IV antibiotic in the form of Rocephin 1 g every 24 hours as well as Zithromax 500 mg orally once every day, urine Legionella antigen, mycoplasma antibody IgG and IgM, he was also started on Pulmicort 1 mg position twice every day he was admitted to the hospital he also was found to have atrial fibrillation with rapid ventricular response, he was seen in consultation by cardiology was started on Cardizem drip and he was also started back on his Tambocor 50 mg orally twice every day. 03/22: Patient is sitting up in bed is feeling better today, he continues to have some coughing and minimal from production, minimal blood he denies any fever at this time, he has no chills, he continues to be feeling weak, he denies any abdominal pain, nausea or vomiting, he has not had a bowel movement today, he continues to have swelling but this point than yesterday, his insulin, he had related to the bathroom, he denies any dizziness or lightheadedness, no syncopal episode. Monitor showing atrial fibrillation with controlled rate. 03/23. Patient seen and examined. Blood work done this morning hemoglobin 10.9, sodium 133, potassium 4.5, BUN 31, creatinine is 0.74, INR 1.1. Currently on 4 L of oxygen. Gets short of breath on exertion. Swelling of legs is i mproved 03/24. Patient seen and examined. Currently on 4 L of oxygen. Denies any shortness of breath at rest, get short of breath on exertion. 03/25. Patient seen and examined. Sitting upright at the edge of the bed. States swelling of legs has resolved. Denies any chest pain. Gets short of breath on exertion. 03/26. Patient seen and examined. Complaining of congestion, no shortness of breath at rest but gets short of breath on exertion. Continues to be on IV he ever, pulmonary might consider doing bronchoscopy REVIEW OF SYSTEMS: CONSTITUTIONAL: No fever, no malaise,. CARDIOVASCULAR: No chest pain, no palpitations, no syncope. PULMONARY: As mentioned above GASTROINTESTINAL: No diarrhea, no nausea, no vomiting, no abdominal pain. NEUROLOGICAL: No headaches, no weakness, PHYSICAL EXAMINATION: GENERAL: The patient is alert and oriented x3, not in any acute distress. Well developed, well nourished. HEENT: Pupils are round and equally reacting to light. EOMI. No scleral icterus. No conjunctival pallor. Normocephalic, atraumatic. No pharyngeal erythema. No thyromegaly. CARDIOVASCULAR: S1 and S2 present. No murmurs, rubs, or gallops. PULMONARY: Diminished breath sounds at the bases bilaterally, no wheezing or crackles. ABDOMEN: Soft, nontender, nondistended, normoactive bowel sounds. No palpable organomegaly. MUSCULOSKELETAL: No joint swelling or deformity. EXTREMITIES: No cyanosis, clubbing, or pedal edema. NEUROLOGICAL: Gross neurological examination did not reveal any focal deficits. SKIN: No rashes. Assessment and plan Leukocytosis Sepsis acute on chronic hypoxemic respiratory failure Bacterial pneumonia left lower lobe lung mass acute exacerbation of COPD. Continue oxygen supplementation Aggressive bronchopulmonary hygiene Continue breathing treatment Continue IV Zosyn Continue IV Solu-Medrol Pulmonology following, if repeat chest x-ray does not improve, pulmonology will consider doing bronchoscopy Acute diastolic heart failure with severe pulmonary hypertension. Atrial fibrillation with rapid ventricular response. Continue telemetry monitoring Continue Lopressor and flecainide Continue pharmacy dose heparin and Coumadin Cardiology following Coagulopathy due to Coumadin use and sepsis. Pharmacy dose Coumadin . Thoracic aortic aneurysm. Has been under the care of cardiology CT angiography is up-to-date. Abdominal aortic aneurysm. Stable. Bullous pemphigoid. Is stable. Labs and medication were reviewed.. Continue same treatment. Continue with symptomatic treatment. Resume home medication. Monitor labs and vitals. DVT and GI prophylaxis. Further recommendations as per clinical course of the patient Dictation was produced using [employer] dictation software. please excuse any grammatical, word or spelling errors. Objective - Vital Signs Vital signs: Vital Signs Temp 97.7 F 03/26/23 08:25 Pulse 95 03/26/23 08:25 Resp 20 03/26/23 08:25 BP 141/94 03/26/23 08:25 Pulse Ox 99 03/26/23 08:25 FiO2 Intake & Output 03/25/23 03/26/23 03/26/23 18:59 06:59 18:59 Intake Total 431.027 118 Output Total 150 350 Balance 281.027 -350 118 Intake: Intake, IV Titration 195.027 Amount Heparin Sod,Pork in 0.45% 195.027 NaCl 25,000 unit In 0.45 % NaCl 1 250ml.bag @ 12 UNITS/KG/HR 7.224 mls/hr IV .Q24H [facility] Rx#: [id number] Oral 236 118 Output: Urine 150 350 Other: Voiding Method Toilet Toilet Toilet Urinal Urinal Urinal # Voids 2 - Labs CBC & Chem 7: 03/26/23 09:06 03/26/23 09:06 Labs: Abnormal Lab Results - Last 24 Hours (Table) 03/25/23 03/25/23 03/26/23 Range/Units 16:33 20:07 06:04 WBC (3.8-10.6) k/uL Hgb (13.0-17.5) gm/dL Hct (39.0-53.0) % MCHC (31.0-37.0) g/dL RDW (11.5-15.5) % APTT (22.0-30.0) sec Sodium (137-145) mmol/L Chloride (98-107) mmol/L BUN (9-20) mg/dL Glucose (74-99) mg/dL POC Glucose (mg/dL) 178 H 138 H 175 H (70-110) mg/dL Calcium (8.4-10.2) mg/dL AST (17-59) U/L ALT (4-49) U/L Alkaline Phosphatase (38-126) U/L Total Protein (6.3-8.2) g/dL Albumin (3.5-5.0) g/dL 03/26/23 03/26/23 03/26/23 Range/Units 09:06 09:06 09:06 WBC 17.1 H (3.8-10.6) k/uL Hgb 11.8 L (13.0-17.5) gm/dL Hct 38.4 L (39.0-53.0) % MCHC 30.8 L (31.0-37.0) g/dL RDW 15.8 H (11.5-15.5) % APTT 76.6 H (22.0-30.0) sec Sodium 133 L (137-145) mmol/L Chloride 93 L (98-107) mmol/L BUN 31 H (9-20) mg/dL Glucose 130 H (74-99) mg/dL POC Glucose (mg/dL) (70-110) mg/dL Calcium 8.2 L (8.4-10.2) mg/dL AST 92 H (17-59) U/L ALT 156 H (4-49) U/L Alkaline Phosphatase 142 H (38-126) U/L Total Protein 5.9 L (6.3-8.2) g/dL Albumin 3.1 L (3.5-5.0) g/dL 03/26/23 Range/Units 11:29 WBC (3.8-10.6) k/uL Hgb (13.0-17.5) gm/dL Hct (39.0-53.0) % MCHC (31.0-37.0) g/dL RDW (11.5-15.5) % APTT (22.0-30.0) sec Sodium (137-145) mmol/L Chloride (98-107) mmol/L BUN (9-20) mg/dL Glucose (74-99) mg/dL POC Glucose (mg/dL) 125 H (70-110) mg/dL Calcium (8.4-10.2) mg/dL AST (17-59) U/L ALT (4-49) U/L Alkaline Phosphatase (38-126) U/L Total Protein (6.3-8.2) g/dL Albumin (3.5-5.0) g/dL
--- NOTE | 2023-03-26 15:44 | P.PN ---
Subjective Progress Note Date: 03/26/23 Principal diagnosis: Acute on chronic hypoxic respiratory failure with severe COPD and pseudomonal pneumonia involving right lung. And hemoptysis I am seeing this patient in new consultation today 03/22/2023 in the emergency room after presented with the chief complaints of hemoptysis and shortness of breath. Patient is a 87-year-old white male with past medical history signi ficant for paroxysmal atrial fibrillation anticoagulated on warfarin, severe oxygen dependent COPD, thoracic aortic aneurysm, and left lower lobe lung mass. He does follow with Dr. Zapata in the pulmonary office for his COPD and lung mass. Patient presented to the emergency room yesterday afternoon with a chief complaint hemoptysis. He states that he's had bloody sputum mixed with mucus for approximately 1-1/2 days. Present symptoms associated mild shortness of breath and subjective fevers. Denies chest pain, heart palpitations, lightheadedness, or syncope. He does have some bilateral 3+ lower extremity edema. Patient does take warfarin on outpatient basis. His INR was supratherapeutic at 4.7 on arrival. heart rhythm is atrial flutter with rapid ventricular response, and the patient was started on Cardizem infusion at 5 mg per hour.patient is currently sitting up in bed, on 3 L/m nasal cannula, in no acute distress. Chest x-ray demonstrates extensive new multifocal infiltrates and trace pleural effusions. CBC demonstrates a leukocytosis with a WBC count of 16.8, hemoglobin 12.7, hematocrit 40.1, platelets 385. BMP shows sodium 131, potassium 4.9, chloride 94, serum bicarb 25, BUN 33, creatinine 0.80, glucose 116. normal saline is infusing at 50 ML's per hour. Lactic acid level I.8. Negative COVID-19.the patient is empirically started on antibiotics for community-acquired pneumonia including azithromycin and Rocephin. Currently afebrile. Also, started on DuoNeb's, budesonide inhalation, and IV Solu-Medrol. Patient is stable and nontoxic. He will be admitted to the cardiac stepdown unit once bed available. The patient is seen today 03/23/2023 in follow-up on the selective care unit. He is currently sitting up at the bedside. Awake and alert in no acute distress. He is on oxygen at 4 L/m per nasal cannula. He remains in atrial fibrillation. His warfarin has been on hold for possible bronchoscopy. He'll be initiated on a heparin drip for now. He is continued on ceftriaxone. Computed tomography scan of the chest revealed acute right lower lobe superior segment airspace consolidation concerning for pneumonia. He has a stable 14 mm right lower lung peripheral pulmonary nodule that had been followed in the outpatient setting. He is continued on bronchodilators, steroids, oral diuretics. White count 12.6. Hemoglobin 10.9. Platelets 394. Sodium 133. Potassium 4.5. Bicarb 24. BUN 31. Creatinine 0.74. Glucose 162. AST 87. AST 65. The patient is seen today 03/24/2023 in follow-up on the selective care unit. He is awake and alert in no acute distress. Sitting up in bed. Feeling a bit better today compared to yesterday. He has been somewhat slow to progress. He is maintaining O2 saturations in the 90s on 4 L/m per nasal cannula. Chest x- ray continues to show a right lower lobe masslike infiltrate. Additional basilar infiltrate/atelectasis seen as well. His sputum culture is now positive for pseudomonas aeruginosa. Blood cultures revealed no growth. He is currently on ceftriaxone. Maintained on DuoNeb inhalations, Pulmicort and Perforomist inhalations, Solu-Medrol. Continued on oral diuretics. White count 10.4. Hemo globin 11.2. Platelets 422. Sodium 134. Potassium 4.1. Bicarb 25. BUN 42. Creatinine 0.91. AST 100. ALT 112. Patient was seen today on 03/25/2023, no more bright red blood/hemoptysis, however the patient clearly has some brownish/chocolate like colored sputum intermittently. Patient is on heparin, and his sputum was positive for pseudomonas aeruginosa hence was started the patient yesterday on Zosyn. Coumadin remains on hold. Patient remains on bronchodilators, he also remains on steroids, and I'm still wondering whether the patient truly needs to have bronchoscopy, most likely at this point he does not need to be bronchoscoped especially if he clinically improves and his chest x-ray shows improvement. Again I believe the findings in the right lung are mostly consolidation f indings/pneumonia findings are than malignancy related findings. Although that is not entirely ruled out. WBC count today is 10.3 hemoglobin is 10 basic metabolic profile is normal renal profile is normal Reevaluated today on 03/26/2023, patient remains on heparin remains on antibiotics in the form of Zosyn remains on bronchodilators, no further episodes of hemoptysis. Patient is doing great overall, however there is still a concern whether the patient may require bronchoscopy, and I'm recommending a repeat chest x-ray in a.m. If the chest x-ray shows improvement, then no need for bronchoscopy if no improvement, Dr. Zapata would have to decide on whether to bronchoscope the patient forgot. This patient is familiar to her's service, and has been seeing him for a separate nodule best not related to this issue at present. Labs today showed the risk of 17.1 hemoglobin 11.8 basic metabolic profile is normal and renal profile is normal Objective - Vital Signs Vital signs: Vital Signs Temp 97.7 F 03/26/23 08:25 Pulse 94 03/26/23 11:40 Resp 19 03/26/23 11:40 BP 144/80 03/26/23 11:40 Pulse Ox 99 03/26/23 11:40 FiO2 Intake & Output 03/25/23 03/26/23 03/26/23 18:59 06:59 18:59 Intake Total 431.027 358 Output Total 150 350 Balance 281.027 -350 358 Intake: Intake, IV Titration 195.027 Amount Heparin Sod,Pork in 0.45% 195.027 NaCl 25,000 unit In 0.45 % NaCl 1 250ml.bag @ 12 UNITS/KG/HR 7.224 mls/hr IV .Q24H [facility] Rx#: [id number] Oral 236 358 Output: Urine 150 350 Other: Voiding Method Toilet Toilet Toilet Urinal Urinal Urinal # Voids 2 - Exam GENERAL EXAM: Revealed an 87-year-old white male in no distress HEAD: Normocephalic and atraumatic EENT: PERRLA, EOMI, nonicteric, no neck masses, no JVD. CHEST: No chest wall deformity. LUNGS: Scattered rhonchi noted bilaterally CVS: S1 and S2 normal with no audible murmur, irregular rhythm. No extra heart sounds ABDOMEN: No hepatosplenomegaly, active bowel sounds, no guarding or rigidity. SKIN: No rashes CENTRAL NERVOUS SYSTEM: Alert oriented 3 focal deficit Psychiatric: Normal mood affect and normal mental status examination. EXTREMITIES: 1+ bipedal edema - Labs CBC & Chem 7: 03/26/23 09:06 03/26/23 09:06 Labs: Abnormal Lab Results - Last 24 Hours (Table) 03/25/23 03/25/23 03/26/23 Range/Units 16:33 20:07 06:04 WBC (3.8-10.6) k/uL Hgb (13.0-17.5) gm/dL Hct (39.0-53.0) % MCHC (31.0-37.0) g/dL RDW (11.5-15.5) % APTT (22.0-30.0) sec Sodium (137-145) mmol/L Chloride (98-107) mmol/L BUN (9-20) mg/dL Glucose (74-99) mg/dL POC Glucose (mg/dL) 178 H 138 H 175 H (70-110) mg/dL Calcium (8.4-10.2) mg/dL AST (17-59) U/L ALT (4-49) U/L Alkaline Phosphatase (38-126) U/L Total Protein (6.3-8.2) g/dL Albumin (3.5-5.0) g/dL 03/26/23 03/26/23 03/26/23 Range/Units 09:06 09:06 09:06 WBC 17.1 H (3.8-10.6) k/uL Hgb 11.8 L (13.0-17.5) gm/dL Hct 38.4 L (39.0-53.0) % MCHC 30.8 L (31.0-37.0) g/dL RDW 15.8 H (11.5-15.5) % APTT 76.6 H (22.0-30.0) sec Sodium 133 L (137-145) mmol/L Chloride 93 L (98-107) mmol/L BUN 31 H (9-20) mg/dL Glucose 130 H (74-99) mg/dL POC Glucose (mg/dL) (70-110) mg/dL Calcium 8.2 L (8.4-10.2) mg/dL AST 92 H (17-59) U/L ALT 156 H (4-49) U/L Alkaline Phosphatase 142 H (38-126) U/L Total Protein 5.9 L (6.3-8.2) g/dL Albumin 3.1 L (3.5-5.0) g/dL 03/26/23 Range/Units 11:29 WBC (3.8-10.6) k/uL Hgb (13.0-17.5) gm/dL Hct (39.0-53.0) % MCHC (31.0-37.0) g/dL RDW (11.5-15.5) % APTT (22.0-30.0) sec Sodium (137-145) mmol/L Chloride (98-107) mmol/L BUN (9-20) mg/dL Glucose (74-99) mg/dL POC Glucose (mg/dL) 125 H (70-110) mg/dL Calcium (8.4-10.2) mg/dL AST (17-59) U/L ALT (4-49) U/L Alkaline Phosphatase (38-126) U/L Total Protein (6.3-8.2) g/dL Albumin (3.5-5.0) g/dL Assessment and Plan Assessment: Impression: Acute on chronic hypoxic respiratory failure, multifactorial Acute Pseudomonas pneumonia Hemoptysis secondary to above History of lung nodule being followed by Dr. zapata on outpatient basis Transaminitis of unclear etiology Supratherapeutic INR on presentation patient was on warfarin which is presently on hold and he is receiving heparin instead as he may still require bronchoscopy History of ascending aortic thoracic aortic aneurysm Tobacco dependence syndrome Acute exacerbation Severe COPD FEV1 of 37% Recommendation: Continue Zosyn Continue bronchodilators Continue oxygen and titrate accordingly Repeat chest x-ray in a.m. and decide whether the patient truly needs to have bronchoscopy or not. Continue heparin for now until a final decision is made whether the patient needs bronchoscopy and eventually transition to Coumadin or eliquis. We will continue to follow. Increase activity as tolerated Time with Patient: Less than 30
[2023-03-26 16:33] LABS: Glucose,Whole Blood 160 mg/dL (70-110)
[2023-03-26 19:56] LABS: Glucose,Whole Blood 155 mg/dL (70-110)
[2023-03-26] MEDS: MELATONIN 3 MG TABLET PO SCH (21:26)
[2023-03-27] MEDS: IPRATROPIUM-ALBUTEROL 3 ML NEB INHALATION PRN (05:24)
[2023-03-27] MEDS: methylPREDNISolone SOD SUCCI 125 MG/2 ML VIAL IV SCH ×3 (05:57→17:01)
[2023-03-27 06:30] LABS: Glucose,Whole Blood 163 mg/dL (70-110)
--- NOTE | 2023-03-27 08:41 | XR ---
EXAMINATION TYPE: XR chest 1V portable DATE OF EXAM: 03/27/2023 COMPARISON: 03/24/2023 HISTORY: Cough TECHNIQUE: Single frontal view of the chest is obtained. FINDINGS: Bilateral lower lobe infiltrate and small effusion. There is right upper lobe consolidatio n improved. Biapical pleural thickening. Diffuse emphysematous changes. Atherosclerotic change aorta. Degenerative change spine. Bilateral shoulder arthropathy. Chronic rib deformities are noted. IMPRESSION: COPD with bilateral infiltrate and pleural effusion findings are most typical of pneumon ia. There is a slight improvement in the right upper lobe.
[2023-03-27] MEDS: PIPERACILLIN-TAZOBACTAM 3.375 GM in SODIUM CHLORIDE 0.9% 100 ML IVPB SCH ×3 (09:00→23:32)
[2023-03-27] MEDS: polyethylene glycoL 3350 17 GM POWD.PACK PO SCH (09:01)
[2023-03-27] MEDS: DOCUSATE 100 MG CAP PO SCH ×2 (09:01→20:16)
[2023-03-27] MEDS: FUROSEMIDE 20 MG TAB PO SCH (09:01)
[2023-03-27] MEDS: FLECAINIDE 50 MG TAB PO SCH ×2 (09:01→20:16)
[2023-03-27] MEDS: MULTIVITAMINS, THERA 1 EACH TAB PO SCH (09:01)
[2023-03-27] MEDS: METOPROLOL TARTRATE 25 MG TAB PO SCH ×3 (09:01→21:37)
[2023-03-27] MEDS: SPIRONOLACTONE 25 MG TAB PO SCH (09:01)
[2023-03-27] MEDS: FORMOTEROL FUMARATE 20 MCG/2 ML NEBU INHALATION SCH ×2 (09:18→20:57)
[2023-03-27] MEDS: BUDESONIDE 1 MG/2 ML NEBU INHALATION SCH ×2 (09:18→20:56)
[2023-03-27] MEDS: IPRATROPIUM-ALBUTEROL 3 ML NEB INHALATION SCH ×4 (09:24→20:56)
[2023-03-27 11:30] LABS: INR 1.5 (<1.2); Prothrombin Time 15.7 sec (10.0-12.5)
[2023-03-27 11:33] LABS: Glucose,Whole Blood 92 mg/dL (70-110)
[2023-03-27] MEDS ORDERED: HEPARIN SODIUM 1,000 UN/ML (10ML VL) IV PRN (11:34)
[2023-03-27] MEDS: HEPARIN SOD,PORK IN 0.45% NACL 25,000 UNIT in 0.45% NACL 1 250ML.BAG IV SCH ×2 (11:44→21:41)
--- NOTE | 2023-03-27 13:38 | P.PN ---
Subjective Progress Note Date: 03/27/23 Principal diagnosis: Respiratory failure. The patient is seen today 03/23/2023 in follow-up on the selective care unit. He is currently sitting up at the bedside. Awake and alert in no acute distress. He is on oxygen at 4 L/m per nasal cannula. He remains in atrial fibrillation. His warfarin has been on hold for possible bronchoscopy. He'll be initiated on a heparin drip for now. He is continued on ceftriaxone. Computed tomography scan of the chest revealed acute right lower lobe superior segment airspace consolidation concerning for pneumonia. He has a stable 14 mm right lower lung peripheral pulmonary nodule that had been followed in the outpatient setting. He is continued on bronchodilators, steroids, oral diuretics. White count 12.6. Hemoglobin 10.9. Platelets 394. Sodium 133. Potassium 4.5. Bicarb 24. BUN 31. Creatinine 0.74. Glucose 162. AST 87. AST 65. The patient is seen today 03/24/2023 in follow-up on the selective care unit. He is awake and alert in no acute distress. Sitting up in bed. Feeling a bit better today compared to yesterday. He has been somewhat slow to progress. He is maintaining O2 saturations in the 90s on 4 L/m per nasal cannula. Chest x- ray continues to show a right lower lobe masslike infiltrate. Additional basilar infiltrate/atelectasis seen as well. His sputum culture is now positive for pseudomonas aeruginosa. Blood cultures revealed no growth. He is currently on ceftriaxone. Maintained on DuoNeb inhalations, Pulmicort and Perforomist inhalations, Solu-Medrol. Continued on oral diuretics. White count 10.4. Hemoglobin 11.2. Platelets 422. Sodium 134. Potassium 4.1. Bicarb 25. BUN 42. Creatinine 0.91. AST 100. ALT 112. Patient was seen today on 03/25/2023, no more bright red blood/hemoptysis, however the patient clearly has some brownish/chocolate like colored sputum intermittently. Patient is on heparin, and his sputum was positive for pseudomonas aeruginosa hence was started the patient yesterday on Zosyn. Coumadin remains on hold. Patient remains on bronchodilators, he also remains on steroids, and I'm still wondering whether the patient truly needs to have bronchoscopy, most likely at this point he does not need to be bronchoscoped especially if he clinically improves and his chest x-ray shows improvement. Again I believe the findings in the right lung are mostly consolidation findings/pneumonia findings are than malignancy related findings. Although that is not entirely ruled out. WBC count today is 10.3 hemoglobin is 10 basic metabolic profile is normal renal profile is normal Reevaluated today on 03/26/2023, patient remains on heparin remains on antibiotics in the form of Zosyn remains on bronchodilators, no further episodes of hemoptysis. Patient is doing great overall, however there is still a concern whether the patient may require bronchoscopy, and I'm recommending a repeat chest x-ray in a.m. If the chest x-ray shows improvement, then no need for bronchoscopy if no improvement, Dr. Zapata would have to decide on whether to bronchoscope the patient forgot. This patient is familiar to her's service, and has been seeing him for a separate nodule best not related to this issue at present. Labs today showed the risk of 17.1 hemoglobin 11.8 basic metabolic profile is normal and renal profile is normal Progress note dated 03/27/2023. The patient is seen today in room 373. He appears to be doing a bit better. He's currently on 4 L of oxygen. He continues on Zosyn. His sputum evaluation was positive for Pseudomonas. Today, we'll convert the Solu-Medrol to oral prednisone and budesonide and formoterol to Symbicort. The patient typically sees me in the office anyway. He is sitting in a chair next to his bed. His is in the room with him. Labs today include a glucose of 92, PT of 15.7, INR 1.5, and a PTT of 104.8. Chest x-ray today shows COPD, with infiltrate, and a right upper lobe, which is in our opinion, significantly improved. Objective - Vital Signs Vital signs: Vital Signs Temp 97.9 F 03/27/23 09:05 Pulse 100 03/27/23 13:03 Resp 18 03/27/23 11:45 BP 101/63 03/27/23 11:45 Pulse Ox 94 L 03/27/23 11:45 FiO2 Intake & Output 03/26/23 03/27/23 03/27/23 18:59 06:59 18:59 Intake Total 358 10 156.332 Output Total 220 850 550 Balance 138 -840 -393.668 Weight 58.5 kg Intake: IV 10 0.9 10 Intake, IV Titration 156.332 Amount Heparin Sod,Pork in 0.45% 156.332 NaCl 25,000 unit In 0.45 % NaCl 1 250ml.bag @ 12 UNITS/KG/HR 7.224 mls/hr IV .Q24H [facility] Rx#: [id number] Oral 358 Output: Urine 220 850 550 Other: Voiding Method Toilet Toilet Toilet Urinal Urinal Urinal # Voids 5 1 - Exam No acute distress, oriented 3. The patient is currently on 4 L of oxygen. No audible wheezing, use of accessory muscles. HEENT examination is grossly unremarkable. Neck supple. Full range of motion. No adenopathy thyromegaly or neck vein distention. Cardiovascular examination reveals regular rhythm rate. S1-S2 normal. No S3 or S4. No discernible murmur noted. Heart sounds are distant. Heart rate 100 bpm. Lungs reveal scattered diffuse rhonchi. Mild expiratory wheezes noted. There are no crackles. Breath sounds are equal bilaterally, but diminished throughout. 4 L saturation is 94%. Abdomen soft bowel sounds are heard. No masses or tenderness. Extremities are intact. No cyanosis or clubbing. Lower extremity edema is noted. Skin is without rash or lesion. Neurologic examination is brief but nonfocal. - Labs CBC & Chem 7: 03/26/23 09:06 03/26/23 09:06 Labs: Abnormal Lab Results - Last 24 Hours (Table) 03/26/23 03/26/23 03/27/23 Range/Units 16:31 19:55 06:29 PT (10.0-12.5) sec INR (<1.2) APTT (22.0-30.0) sec POC Glucose (mg/dL) 160 H 155 H 163 H (70-110) mg/dL 03/27/23 03/27/23 Range/Units 08:57 08:57 PT 15.7 H (10.0-12.5) sec INR 1.5 H (<1.2) APTT 104.8 H* (22.0-30.0) sec POC Glucose (mg/dL) (70-110) mg/dL Microbiology - Last 24 Hours (Table) 03/21/23 16:35 Blood Culture - Final Blood 03/21/23 16:20 Blood Culture - Final Blood Assessment and Plan Assessment: Acute on chronic hypoxemic respiratory failure, multifactorial. Acute Pseudomonas pneumonia. Hemoptysis, secondary to above. History of solitary pulmonary nodule, being followed as an outpatient. Mild liver function abnormalities. History of ascending aortic thoracic aneurysm. Tobacco dependence syndrome. 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 Plan: Plan dated 03/27/2023. The patient is feeling better. He's on 4 L of oxygen. The patient continues on Zosyn for pseudomonas in the sputum, and presumed Pseudomonas pneumonia. Solu- Medrol is converted to prednisone. In addition, updrafts with budesonide, and formoterol, are switched to Symbicort. We will continue to follow and make recommendations along the way. The patient's overall prognosis remains very guarded. His most recent chest x-ray is certainly improved. He will follow with me in the office after discharge. Time with Patient: Less than 30
--- NOTE | 2023-03-27 16:53 | P.PN ---
Subjective Progress Note Date: 03/27/23 HISTORY OF PRESENT ILLNESS: This is an 87-year-old male with a previous medical history signifi cant for 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 failure on oxygen at home, paroxysmal atrial for depression, thoracic aortic aneurysm, abdominal aortic aneurysm, chronic diastolic heart failure, chronic pulmonary hypertension, patient presented to the emergency department at [facility] with acute shortness breath associated with increased coughing of yellowish and blood frothy sputum, has been having increased shortness breath over the last 3 days, he was complain of some fever and chills, he also was complaining of increased diarrhea over the last 24 hours, patient was seen and evaluated in emergency room and he was found to have leukocytosis, a 16,000, he also found to have coagulopathy due to his INR being elevated, patient had a chest x-ray that didn't show evidence of multilobar pneumonia as well as left lower lobe mass that he has been following with Dr. Zapata as an outpatient, patient was started on IV Solu-Medrol 60 mg IV push every 6 hours, DuoNeb 3 mg nebulization 4 times every day, he was also started on IV antibiotic in the form of Rocephin 1 g every 24 hours as well as Zithromax 500 mg orally once every day, urine Legionella antigen, mycoplasma antibody IgG and IgM, he was also started on Pulmicort 1 mg position twice every day he was admitted to the hospital he also was found to have atrial fibrillation with rapid ventricular response, he was seen in consultation by cardiology was started on Cardizem drip and he was also started back on his Tambocor 50 mg orally twice every day. 03/22: Patient is sitting up in bed is feeling better today, he continues to have some coughing and minimal from production, minimal blood he denies any fever at this time, he has no chills, he continues to be feeling weak, he denies any abdominal pain, nausea or vomiting, he has not had a bowel movement today, he continues to have swelling but this point than yesterday, his insulin, he had related to the bathroom, he denies any dizziness or lightheadedness, no syncopal episode. Monitor showing atrial fibrillation with controlled rate. 03/27: Patient remains afebrile, heart rate in the 90s, blood pressure 107/77, pulse ox 96% on 4 L nasal cannula. Repeat blood work reveals INR is 1.5. Patient remains on heparin drip and pharmacy is dosing Coumadin. Repeat CBC and CMP ordered for tomorrow. Patient is followed by pulmonary medicine and cardiology. Respiratory status is improving. Solu-Medrol has been transitioned to oral prednisone and budesonide and formoterol to Symbicort. Repeat chest x- ray reveals COPD with bilateral infiltrate and pleural effusion most typical of pneumonia. Slight improvement of the right upper lobe. No plan for bronchoscopy and biopsy. Telemetry is atrial fibrillation with controlled ventricular rate. Patient has been evaluated by therapy with recommendations for home with home care. wireless construction manager made arrangements for residential home care. Legionella antigen negative. Mycoplasma IgG high with normal IgM. Covid 19 not detected. REVIEW OF SYSTEMS: Constitutional: positive for fever, no chills, no night sweats. No weight change. No weakness, fatigue or lethargy. No daytime sleepiness. HEENT: No headache. No blurred vision or double vision, no loss of vision. No loss of Hearing, no ringing in the ears, no dizziness. No nasal drainage or congestion. No epistaxis. No sore throat. Lungs: positive for shortness of breath-improving, positive for cough,yellow sputum production that is bloody positive for wheezing. Reports dyspnea with activity. Cardiovascular: No chest pain, positive for lower extremity edema. positive for palpitations. No paroxysmal nocturnal dyspnea. No orthopnea. No lightheadedness or dizziness. No syncopal episodes. Abdominal: Reports no abdominal pain. positive for nausea, no vomiting. positive for diarrhea. No constipation. No bloody or tarry stools reports loss of appetite. Genitourinary: No dysuria, increased frequency, urgency. No urinary retention. Musculoskeletal: No myalgias. positive for muscle weakness, positive for gait dysfunction, no frequent falls. No back pain. No neck pain. Integumentary: No wounds, no lesions. No rash or pruritus. No unusual bruising. No change in hair or nails. Neurologic: No aphasia. No facial droop. No change in mentation. No head injury. No headache. No paralysis. No paresthesia. Psychiatric: No depression. No anxiety. No mood swings. Endocrine: No abnormal blood sugars. No weight change. PHYSICAL EXAMINATION: General: 87-year-old male laying down in bed in minimal respiratory distress. HEENT: Head is atraumatic, normocephalic, pupils were equal round reactive to light and recommendation, extraocular muscle movement were intact, sclera nonicteric, conjunctivae were pale, mucous membranes of the mouth are somewhat dry. Neck: Supple, no JVP, normal carotid upstroke bilaterally, no lymphadenopathy. Chest: Decreased breath sounds at the bases, few rhonchi, minimal expiratory wheezes, no chest wall tenderness, no intercostal retractions. Heart: First heart sound is normal, second heart sound is normal irregularly irregular there is JULI 2/6 located at the left sternal border Abdomen: Soft, nontender, nondistended, positive bowel sounds. Extremities: There is +1 edema no calf tenderness DP +2 bilaterally. Neurologic examination: Patient is awake alert and oriented X 3, cranial nerves II-12 appear grossly intact, muscle power were 4 out of 5 in upper extremities and 3 out of 5 in bilateral lower extremities, deep tendon reflexes normal bilat erally. ASSESSMENT AND PLAN: 1. 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 Continue patient on Pulmicort, Perforomist, DuoNeb treatments 4 times daily, Solu-Medrol to be transitioned to oral prednisone per pulmonary medicine, continue IV antibiotics the form of Zosyn. 2. Acute diastolic heart failure with severe pulmonary hypertension. Continue patient on Lasix 20 mg once every day as well as spironolactone 25 mg orally once every day, monitor the patient input and output and daily. 3. Atrial fibrillation with rapid ventricular response, now rate controlled. Continue patient on Tambocor and Lopressor 25 mg 3 times daily, continue heparin drip until INR is therapeutic. 4. Leukocytosis likely related to to multilobar pneumonia with sepsis. Continue IV antibiotic, monitor the patient's CBC over the next 24 hours. 5. Coagulopathy due to Coumadin use and sepsis. Pharmacy dosing Coumadin. 6. Atrial fibrillation continue Tambocor 50 mg orally twice every day and metoprolol tartrate 25 mg 3 times daily. 7. Thoracic aortic aneurysm. Has been under the care of cardiology CT angiography is up-to-date. 8. Abdominal aortic and nursing. Stable. 9. Bullous pemphigoid. Is stable. 10. DVT prophylaxis. Restart the patient on Coumadin 5 mg orally once every day starting tomorrow morning. 11. GI prophylaxis. Continue patient on Protonix 40 mg orally once every day. 12. Physical therapy evaluation. Impression and plan of care have been directed as dictated by the signing physician. Mandie De La Torre nurse practitioner acting as scribe for signing physician. Objective - Vital Signs Vital signs: Vital Signs Temp 97.9 F 03/27/23 09:05 Pulse 92 03/27/23 15:45 Resp 17 03/27/23 15:45 BP 107/77 03/27/23 15:45 Pulse Ox 96 03/27/23 15:45 FiO2 Intake & Output 03/26/23 03/27/23 03/27/23 18:59 06:59 18:59 Intake Total 358 10 396.332 Output Total 220 850 550 Balance 138 -840 -153.668 Weight 58.5 kg Intake: IV 10 0.9 10 Intake, IV Titration 156.332 Amount Heparin Sod,Pork in 0.45% 156.332 NaCl 25,000 unit In 0.45 % NaCl 1 250ml.bag @ 12 UNITS/KG/HR 7.224 mls/hr IV .Q24H [facility] Rx#: [id number] Oral 358 240 Output: Urine 220 850 550 Other: Voiding Method Toilet Toilet Toilet Urinal Urinal Urinal # Voids 5 1 - Labs CBC & Chem 7: 03/26/23 09:06 03/26/23 09:06 Labs: Abnormal Lab Results - Last 24 Hours (Table) 03/26/23 03/27/23 03/27/23 Range/Units 19:55 06:29 08:57 PT (10.0-12.5) sec INR (<1.2) APTT 104.8 H* (22.0-30.0) sec POC Glucose (mg/dL) 155 H 163 H (70-110) mg/dL 03/27/23 Range/Units 08:57 PT 15.7 H (10.0-12.5) sec INR 1.5 H (<1.2) APTT (22.0-30.0) sec POC Glucose (mg/dL) (70-110) mg/dL Microbiology - Last 24 Hours (Table) 03/21/23 16:35 Blood Culture - Final Blood 03/21/23 16:20 Blood Culture - Final Blood
[2023-03-27 16:57] LABS: Glucose,Whole Blood 156 mg/dL (70-110)
[2023-03-27] MEDS: WARFARIN 5 MG TAB PO SCH (17:01)
[2023-03-27] MEDS: MELATONIN 3 MG TABLET PO SCH (20:16)
[2023-03-27 21:08] LABS: Glucose,Whole Blood 158 mg/dL (70-110)
[2023-03-27] MEDS: NYSTATIN 100,000 UNIT/ML SUSP 500,000 UNIT/5 ML CUP PO SCH (21:37)
--- NOTE | 2023-03-27 22:20 | PN ---
PROGRESS NOTE SUBJECTIVE: This is an 87-year-old gentleman with history of atrial fibrillation. He was admitted to hospital with pneumonia and was supposed to undergo bronchoscopy. However, this morning, the Non Clinical Advisor had changed his mind and decided not to do a bronch. The patient remains in atrial fibrillation with controlled ventricular rate, stable otherwise. Rest of his exam is unchanged. His INR is 1.5, which is subtherapeutic. PLAN: If he is not going to go through any procedure, please resume the heparin and follow the protocol and continue with Coumadin to be dosed by the pharmacy. MMODL / IJN: [id number] /
[2023-03-27] MEDS: methylPREDNISolone SOD SUCCI 40 MG/ML 1 ML VIAL IV SCH (23:32)
[2023-03-28 06:30] LABS: Glucose,Whole Blood 109 mg/dL (70-110)
[2023-03-28] MEDS: FUROSEMIDE 20 MG TAB PO SCH (08:54)
[2023-03-28] MEDS: SPIRONOLACTONE 25 MG TAB PO SCH (08:54)
[2023-03-28] MEDS: METOPROLOL TARTRATE 25 MG TAB PO SCH ×3 (08:54→21:16)
[2023-03-28] MEDS: PIPERACILLIN-TAZOBACTAM 3.375 GM in SODIUM CHLORIDE 0.9% 100 ML IVPB SCH ×2 (08:55→16:03)
[2023-03-28] MEDS: FLECAINIDE 50 MG TAB PO SCH ×2 (08:55→21:32)
[2023-03-28] MEDS: DOCUSATE 100 MG CAP PO SCH ×2 (08:55→21:16)
[2023-03-28] MEDS: methylPREDNISolone SOD SUCCI 40 MG/ML 1 ML VIAL IV SCH ×3 (08:55→21:16)
[2023-03-28] MEDS: polyethylene glycoL 3350 17 GM POWD.PACK PO SCH (08:55)
[2023-03-28] MEDS: NYSTATIN 100,000 UNIT/ML SUSP 500,000 UNIT/5 ML CUP PO SCH ×4 (08:55→21:16)
[2023-03-28] MEDS: MULTIVITAMINS, THERA 1 EACH TAB PO SCH (08:55)
[2023-03-28 09:43] LABS: HCT 39.9 % (39.0-53.0); HGB 12.4 gm/dL (13.0-17.5); Hypochromasia Moderate; MCH 27.1 pg (25.0-35.0); MCHC 31.1 g/dL (31.0-37.0); Mean Platelet Volume 8.2; Platelet Count 391 k/uL (150-450); RBC 4.59 m/uL (4.30-5.90); RDW 15.8 % (11.5-15.5); WBC 18.4 k/uL (3.8-10.6)
[2023-03-28 09:57] LABS: ALT 107 U/L (4-49); AST 58 U/L (17-59); African American GFR (CKD) >90 (>60 ml/min/1.73 sqM); Albumin 3.2 g/dL (3.5-5.0); Alkaline Phosphatase 125 U/L (38-126); Anion Gap 8 mmol/L; Blood Urea Nitrogen 29 mg/dL (9-20); Carbon Dioxide 35 mmol/L (22-30); Chloride 88 mmol/L (98-107); Glucose 104 mg/dL (74-99); Non-African American GFR(CKD) 79 (>60 ml/min/1.73 sqM); Potassium 3.8 mmol/L (3.5-5.1); Sodium 131 mmol/L (137-145); Total Bilirubin 0.7 mg/dL (0.2-1.3); Total Protein 5.9 g/dL (6.3-8.2)
[2023-03-28 10:16] LABS: INR 1.6 (<1.2); Partial Thromboplastin Time 84.3 sec (22.0-30.0); Prothrombin Time 16.7 sec (10.0-12.5)
[2023-03-28] MEDS: FORMOTEROL FUMARATE 20 MCG/2 ML NEBU INHALATION SCH ×2 (10:27→20:21)
[2023-03-28] MEDS: IPRATROPIUM-ALBUTEROL 3 ML NEB INHALATION SCH ×4 (10:27→20:21)
[2023-03-28] MEDS: BUDESONIDE 1 MG/2 ML NEBU INHALATION SCH ×2 (10:27→20:21)
[2023-03-28 11:30] LABS: Glucose,Whole Blood 68 mg/dL (70-110)
--- NOTE | 2023-03-28 12:04 | P.PN ---
Subjective Progress Note Date: 03/28/23 Principal diagnosis: Respiratory failure. The patient is seen today 03/23/2023 in follow-up on the selective care unit. He is currently sitting up at the bedside. Awake and alert in no acute distress. He is on oxygen at 4 L/m per nasal cannula. He remains in atrial fibrillation. His warfarin has been on hold for possible bronchoscopy. He'll be initiated on a heparin drip for now. He is continued on ceftriaxone. Computed tomography scan of the chest revealed acute right lower lobe superior segment airspace consolidation concerning for pneumonia. He has a stable 14 mm right lower lung peripheral pulmonary nodule that had been followed in the outpatient setting. He is continued on bronchodilators, steroids, oral diuretics. White count 12.6. Hemoglobin 10.9. Platelets 394. Sodium 133. Potassium 4.5. Bicarb 24. BUN 31. Creatinine 0.74. Glucose 162. AST 87. AST 65. The patient is seen today 03/24/2023 in follow-up on the selective care unit. He is awake and alert in no acute distress. Sitting up in bed. Feeling a bit better today compared to yesterday. He has been somewhat slow to progress. He is maintaining O2 saturations in the 90s on 4 L/m per nasal cannula. Chest x- ray continues to show a right lower lobe masslike infiltrate. Additional basilar infiltrate/atelectasis seen as well. His sputum culture is now positive for pseudomonas aeruginosa. Blood cultures revealed no growth. He is currently on ceftriaxone. Maintained on DuoNeb inhalations, Pulmicort and Perforomist inhalations, Solu-Medrol. Continued on oral diuretics. White count 10.4. Hemoglobin 11.2. Platelets 422. Sodium 134. Potassium 4.1. Bicarb 25. BUN 42. Creatinine 0.91. AST 100. ALT 112. Patient was seen today on 03/25/2023, no more bright red blood/hemoptysis, however the patient clearly has some brownish/chocolate like colored sputum intermittently. Patient is on heparin, and his sputum was positive for pseudomonas aeruginosa hence was started the patient yesterday on Zosyn. Coumadin remains on hold. Patient remains on bronchodilators, he also remains on steroids, and I'm still wondering whether the patient truly needs to have bronchoscopy, most likely at this point he does not need to be bronchoscoped especially if he clinically improves and his chest x-ray shows improvement. Again I believe the findings in the right lung are mostly consolidation findings/pneumonia findings are than malignancy related findings. Although that is not entirely ruled out. WBC count today is 10.3 hemoglobin is 10 basic metabolic profile is normal renal profile is normal Reevaluated today on 03/26/2023, patient remains on heparin remains on antibiotics in the form of Zosyn remains on bronchodilators, no further episodes of hemoptysis. Patient is doing great overall, however there is still a concern whether the patient may require bronchoscopy, and I'm recommending a repeat chest x-ray in a.m. If the chest x-ray shows improvement, then no need for bronchoscopy if no improvement, Dr. Zapata would have to decide on whether to bronchoscope the patient forgot. This patient is familiar to her's service, and has been seeing him for a separate nodule best not related to this issue at present. Labs today showed the risk of 17.1 hemoglobin 11.8 basic metabolic profile is normal and renal profile is normal Progress note dated 03/27/2023. The patient is seen today in room 373. He appears to be doing a bit better. He's currently on 4 L of oxygen. He continues on Zosyn. His sputum evaluation was positive for Pseudomonas. Today, we'll convert the Solu-Medrol to oral prednisone and budesonide and formoterol to Symbicort. The patient typically sees me in the office anyway. He is sitting in a chair next to his bed. His is in the room with him. Labs today include a glucose of 92, PT of 15.7, INR 1.5, and a PTT of 104.8. Chest x-ray today shows COPD, with infiltrate, and a right upper lobe, which is in our opinion, significantly improved. Progress note dated 03/28/2023. 87-year-old male, seen in room 373. Currently, the patient is on 4 L of oxygen. The patient's on IV heparin, but that can be changed over to Coumadin. The patient's sputum was positive for Pseudomonas, and for that, he is on Zosyn. Labs today include a white count of 18.4, hemoglobin 12.4, hematocrit 39.9, and a normal platelet count. PTT is 84.3. Sodium 131, potassium 3.8, chlorides 88, CO2 35, BUN 29, creatinine 0.85. Albumin is 3.2. Glucose 68. Chest x-ray from the , shows improvement in his right upper lung infiltrate. Objective - Vital Signs Vital signs: Vital Signs Temp 97.7 F 03/28/23 08:00 Pulse 68 03/28/23 10:47 Resp 18 03/28/23 08:00 BP 115/73 03/28/23 08:00 Pulse Ox 97 03/28/23 10:28 FiO2 Intake & Output 03/27/23 03/28/23 03/28/23 18:59 06:59 18:59 Intake Total 654.779 35.779 240 Output Total 550 650 Balance 104.779 -614.221 240 Weight 58.5 kg 61.7 kg Intake: Intake, IV Titration 234.779 35.779 Amount Heparin Sod,Pork in 0.45% 156.332 NaCl 25,000 unit In 0.45 % NaCl 1 250ml.bag @ 12 UNITS/KG/HR 7.224 mls/hr IV .Q24H AG[facility] Rx#: [id number] Heparin Sod,Pork in 0.45% 78.447 35.779 NaCl 25,000 unit In 0.45 % NaCl 1 250ml.bag @ 19. 624 UNITS/KG/HR 11.48 mls /hr IV .[id number] AG[facility]N Rx#: [id number] Oral 420 240 Output: Urine 550 650 Other: Voiding Method Toilet Toilet Toilet Urinal Urinal Urinal # Voids 2 2 - Exam No acute distress, oriented 3. The patient is currently on 4 L of oxygen. No audible wheezing, use of accessory muscles. HEENT examination is grossly unremarkable. Neck supple. Full range of motion. No adenopathy thyromegaly or neck vein distention. Cardiovascular examination reveals regular rhythm rate. S1-S2 normal. No S3 or S4. No discernible murmur noted. Heart sounds are distant. Heart rate 68 bpm. Lungs reveal scattered diffuse rhonchi. Mild expiratory wheezes noted. There are no crackles. Breath sounds are equal bilaterally, but diminished throughout. 4 L saturation is 97 %. Abdomen soft bowel sounds are heard. No masses or tenderness. Extremities are intact. No cyanosis or clubbing. Lower extremity edema is noted. Skin is without rash or lesion. Neurologic examination is brief but nonfocal. - Labs CBC & Chem 7: 03/28/23 08:40 03/28/23 08:40 Labs: Abnormal Lab Results - Last 24 Hours (Table) 03/27/23 03/27/23 03/27/23 Range/Units 16:55 17:36 21:06 WBC (3.8-10.6) k/uL Hgb (13.0-17.5) gm/dL RDW (11.5-15.5) % PT (10.0-12.5) sec INR (<1.2) APTT 56.8 H (22.0-30.0) sec Sodium (137-145) mmol/L Chloride (98-107) mmol/L Carbon Dioxide (22-30) mmol/L BUN (9-20) mg/dL Glucose (74-99) mg/dL POC Glucose (mg/dL) 156 H 158 H (70-110) mg/dL Calcium (8.4-10.2) mg/dL ALT (4-49) U/L Total Protein (6.3-8.2) g/dL Albumin (3.5-5.0) g/dL 03/28/23 03/28/23 03/28/23 Range/Units 08:40 08:40 08:40 WBC 18.4 H (3.8-10.6) k/uL Hgb 12.4 L (13.0-17.5) gm/dL RDW 15.8 H (11.5-15.5) % PT 16.7 H (10.0-12.5) sec INR 1.6 H (<1.2) APTT 84.3 H (22.0-30.0) sec Sodium 131 L (137-145) mmol/L Chloride 88 L (98-107) mmol/L Carbon Dioxide 35 H (22-30) mmol/L BUN 29 H (9-20) mg/dL Glucose 104 H (74-99) mg/dL POC Glucose (mg/dL) (70-110) mg/dL Calcium 8.0 L (8.4-10.2) mg/dL ALT 107 H (4-49) U/L Total Protein 5.9 L (6.3-8.2) g/dL Albumin 3.2 L (3.5-5.0) g/dL 03/28/23 Range/Units 11:28 WBC (3.8-10.6) k/uL Hgb (13.0-17.5) gm/dL RDW (11.5-15.5) % PT (10.0-12.5) sec INR (<1.2) APTT (22.0-30.0) sec Sodium (137-145) mmol/L Chloride (98-107) mmol/L Carbon Dioxide (22-30) mmol/L BUN (9-20) mg/dL Glucose (74-99) mg/dL POC Glucose (mg/dL) 68 L (70-110) mg/dL Calcium (8.4-10.2) mg/dL ALT (4-49) U/L Total Protein (6.3-8.2) g/dL Albumin (3.5-5.0) g/dL Assessment and Plan Assessment: Acute on chronic hypoxemic respiratory failure, multifactorial. Acute Pseudomonas pneumonia. Hemoptysis, secondary to above. History of solitary pulmonary nodule, being followed as an outpatient. Mild liver function abnormalities. History of ascending aortic thoracic aneurysm. Tobacco dependence syndrome. 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 Plan: Plan dated 03/27/2023. The patient is feeling better. He's on 4 L of oxygen. The patient continues on Zosyn for pseudomonas in the sputum, and presumed Pseudomonas pneumonia. Solu- Medrol is converted to prednisone. In addition, updrafts with budesonide, and formoterol, are switched to Symbicort. We will continue to follow and make recommendations along the way. The patient's overall prognosis remains very guarded. His most recent chest x-ray is certainly improved. He will follow with me in the office after discharge. Plan dated 03/28/2023. The patient is improved. I don't believe the patient needs bronchoscopy at this time. The patient continues on oxygen at 4 L. The patient is not receiving any IV fluids. The heparin can be discontinued and Coumadin resumed. The patient continues on Zosyn for Pseudomonas. Labs, x-rays, medications are reviewed. Solu-Medrol was converted to prednisone. He is currently on Symbicort rather than budesonide and formoterol. His most recent chest x-ray, is improved. We will continue to follow make recommendations along the way. Prognosis is guarded. Time with Patient: Less than 30
--- NOTE | 2023-03-28 16:26 | P.PN ---
Subjective Progress Note Date: 03/28/23 HISTORY OF PRESENT ILLNESS: This is an 87-year-old male with a previous medical history signifi cant for 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 failure on oxygen at home, paroxysmal atrial for depression, thoracic aortic aneurysm, abdominal aortic aneurysm, chronic diastolic heart failure, chronic pulmonary hypertension, patient presented to the emergency department at [facility] with acute shortness breath associated with increased coughing of yellowish and blood frothy sputum, has been having increased shortness breath over the last 3 days, he was complain of some fever and chills, he also was complaining of increased diarrhea over the last 24 hours, patient was seen and evaluated in emergency room and he was found to have leukocytosis, a 16,000, he also found to have coagulopathy due to his INR being elevated, patient had a chest x-ray that didn't show evidence of multilobar pneumonia as well as left lower lobe mass that he has been following with Dr. Zapata as an outpatient, patient was started on IV Solu-Medrol 60 mg IV push every 6 hours, DuoNeb 3 mg nebulization 4 times every day, he was also started on IV antibiotic in the form of Rocephin 1 g every 24 hours as well as Zithromax 500 mg orally once every day, urine Legionella antigen, mycoplasma antibody IgG and IgM, he was also started on Pulmicort 1 mg position twice every day he was admitted to the hospital he also was found to have atrial fibrillation with rapid ventricular response, he was seen in consultation by cardiology was started on Cardizem drip and he was also started back on his Tambocor 50 mg orally twice every day. 03/22: Patient is sitting up in bed is feeling better today, he continues to have some coughing and minimal from production, minimal blood he denies any fever at this time, he has no chills, he continues to be feeling weak, he denies any abdominal pain, nausea or vomiting, he has not had a bowel movement today, he continues to have swelling but this point than yesterday, his insulin, he had related to the bathroom, he denies any dizziness or lightheadedness, no syncopal episode. Monitor showing atrial fibrillation with controlled rate. 03/27: Patient remains afebrile, heart rate in the 90s, blood pressure 107/77, pulse ox 96% on 4 L nasal cannula. Repeat blood work reveals INR is 1.5. Patient remains on heparin drip and pharmacy is dosing Coumadin. Repeat CBC and CMP ordered for tomorrow. Patient is followed by pulmonary medicine and cardiology. Respiratory status is improving. Solu-Medrol has been transitioned to oral prednisone and budesonide and formoterol to Symbicort. Repeat chest x- ray reveals COPD with bilateral infiltrate and pleural effusion most typical of pneumonia. Slight improvement of the right upper lobe. No plan for bronchoscopy and biopsy. Telemetry is atrial fibrillation with controlled ventricular rate. Patient has been evaluated by therapy with recommendations for home with home care. online retailer made arrangements for residential home care. Legionella antigen negative. Mycoplasma IgG high with normal IgM. Covid 19 not detected. 03/28: Patient is gradually improving. Bronchoscopy is not scheduled for tomorrow. Patient remains on heparin drip which has been discontinued by primary medicine. Patient remains on Coumadin and pharmacy pharmacy is dosing Coumadin. Patient remains on Zosyn for pneumonia. He has been afebrile, heart rate in 60s and 70s, blood pressure 123/75, pulse ox 99% on 4 L. Repeat blood work reveals WBC 18.4, hemoglobin 12.4, platelet count 391. INR 1.6. Sodium 131, potassium 3.8, chloride 88, CO2 35, BUN 29 creatinine 0.85. Patient remains on IV Solu-Medrol. REVIEW OF SYSTEMS: Constitutional: positive for fever, no chills, no night sweats. No weight change. No weakness, fatigue or lethargy. No daytime sleepiness. HEENT: No headache. No blurred vision or double vision, no loss of vision. No loss of Hearing, no ringing in the ears, no dizziness. No nasal drainage or congestion. No epistaxis. No sore throat. Lungs: positive for shortness of breath-improving, positive for cough,yellow sputum production that is bloody positive for wheezing. Reports dyspnea with activity. Cardiovascular: No chest pain, positive for lower extremity edema. positive for palpitations. No paroxysmal nocturnal dyspnea. No orthopnea. No lightheade dness or dizziness. No syncopal episodes. Abdominal: Reports no abdominal pain. positive for nausea, no vomiting. positive for diarrhea. No constipation. No bloody or tarry stools reports loss of appetite. Genitourinary: No dysuria, increased frequency, urgency. No urinary retention. Musculoskeletal: No myalgias. positive for muscle weakness, positive for gait dysfunction, no frequent falls. No back pain. No neck pain. Integumentary: No wounds, no lesions. No rash or pruritus. No unusual bruising. No change in hair or nails. Neurologic: No aphasia. No facial droop. No change in mentation. No head injury. No headache. No paralysis. No paresthesia. Psychiatric: No depression. No anxiety. No mood swings. Endocrine: No abnormal blood sugars. No weight change. PHYSICAL EXAMINATION: General: 87-year-old male laying down in bed in minimal respiratory distress. HEENT: Head is atraumatic, normocephalic, pupils were equal round reactive to light and recommendation, extraocular muscle movement were intact, sclera nonicteric, conjunctivae were pale, mucous membranes of the mouth are somewhat dry. Neck: Supple, no JVP, normal carotid upstroke bilaterally, no lymphadenopathy. Chest: Decreased breath sounds at the bases, few rhonchi, minimal expiratory wheezes, no chest wall tenderness, no intercostal retractions. Heart: First heart sound is normal, second heart sound is normal irregularly irregular there is JULI 2/6 located at the left sternal border Abdomen: Soft, nontender, nondistended, positive bowel sounds. Extremities: There is +1 edema no calf tenderness DP +2 bilaterally. Neurologic examination: Patient is awake alert and oriented X 3, cranial nerves II-12 appear grossly intact, muscle power were 4 out of 5 in upper extremities and 3 out of 5 in bilateral lower extremities, deep tendon reflexes normal bilaterally. ASSESSMENT AND PLAN: 1. 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 Continue patient on Pulmicort, Perforomist, DuoNeb treatments 4 times daily, Solu-Medrol to be transitioned to oral prednisone per pulmonary medicine, continue IV antibiotics the form of Zosyn. 2. Acute diastolic heart failure with severe pulmonary hypertension. Continue patient on Lasix 20 mg once every day as well as spironolactone 25 mg orally once every day, monitor the patient input and output and daily. 3. Atrial fibrillation with rapid ventricular response, now rate controlled. Continue patient on Tambocor and Lopressor 25 mg 3 times daily, continue heparin drip until INR is therapeutic. 4. Leukocytosis likely related to to multilobar pneumonia with sepsis. Continue IV antibiotic, monitor the patient's CBC over the next 24 hours. 5. Coagulopathy due to Coumadin use and sepsis. Pharmacy dosing Coumadin. 6. Atrial fibrillation continue Tambocor 50 mg orally twice every day and metoprolol tartrate 25 mg 3 times daily. 7. Thoracic aortic aneurysm. Has been under the care of cardiology CT angiography is up-to-date. 8. Abdominal aortic and nursing. Stable. 9. Bullous pemphigoid. Is stable. 10. DVT prophylaxis. Restart the patient on Coumadin 5 mg orally once every day starting tomorrow morning. 11. GI prophylaxis. Continue patient on Protonix 40 mg orally once every day. 12. Physical therapy evaluation. DISCHARGE PLAN: Home with Residential home care. Impression and plan of care have been directed as dictated by the signing physician. Mandie De La Torre nurse practitioner acting as scribe for signing physician. Objective - Vital Signs Vital signs: Vital Signs Temp 97.8 F 03/28/23 12:00 Pulse 77 03/28/23 13:24 Resp 16 03/28/23 13:24 BP 123/75 03/28/23 12:00 Pulse Ox 99 03/28/23 12:00 FiO2 Intake & Output 03/27/23 03/28/23 03/28/23 18:59 06:59 18:59 Intake Total 654.779 35.779 649.492 Output Total 550 650 400 Balance 104.779 -614.221 249.492 Weight 58.5 kg 61.7 kg Intake: Intake, IV Titration 234.779 35.779 169.492 Amount Heparin Sod,Pork in 0.45% 156.332 NaCl 25,000 unit In 0.45 % NaCl 1 250ml.bag @ 12 UNITS/KG/HR 7.224 mls/hr IV .Q24H [facility] Rx#: [id number] Heparin Sod,Pork in 0.45% 78.447 35.779 169.492 NaCl 25,000 unit In 0.45 % NaCl 1 250ml.bag @ 19. 624 UNITS/KG/HR 11.48 mls /hr IV .[id number] [facility] Rx#: [id number] Oral 420 480 Output: Urine 550 650 400 Other: Voiding Method Toilet Toilet Toilet Urinal Urinal Urinal # Voids 2 2 - Labs CBC & Chem 7: 03/28/23 08:40 03/28/23 08:40 Labs: Abnormal Lab Results - Last 24 Hours (Table) 03/27/23 03/27/23 03/27/23 Range/Units 16:55 17:36 21:06 WBC (3.8-10.6) k/uL Hgb (13.0-17.5) gm/dL RDW (11.5-15.5) % PT (10.0-12.5) sec INR (<1.2) APTT 56.8 H (22.0-30.0) sec Sodium (137-145) mmol/L Chloride (98-107) mmol/L Carbon Dioxide (22-30) mmol/L BUN (9-20) mg/dL Glucose (74-99) mg/dL POC Glucose (mg/dL) 156 H 158 H (70-110) mg/dL Calcium (8.4-10.2) mg/dL ALT (4-49) U/L Total Protein (6.3-8.2) g/dL Albumin (3.5-5.0) g/dL 03/28/23 03/28/23 03/28/23 Range/Units 08:40 08:40 08:40 WBC 18.4 H (3.8-10.6) k/uL Hgb 12.4 L (13.0-17.5) gm/dL RDW 15.8 H (11.5-15.5) % PT 16.7 H (10.0-12.5) sec INR 1.6 H (<1.2) APTT 84.3 H (22.0-30.0) sec Sodium 131 L (137-145) mmol/L Chloride 88 L (98-107) mmol/L Carbon Dioxide 35 H (22-30) mmol/L BUN 29 H (9-20) mg/dL Glucose 104 H (74-99) mg/dL POC Glucose (mg/dL) (70-110) mg/dL Calcium 8.0 L (8.4-10.2) mg/dL ALT 107 H (4-49) U/L Total Protein 5.9 L (6.3-8.2) g/dL Albumin 3.2 L (3.5-5.0) g/dL 03/28/ Range/Units 11:28 WBC (3.8-10.6) k/uL Hgb (13.0-17.5) gm/dL RDW (11.5-15.5) % PT (10.0-12.5) sec INR (<1.2) APTT (22.0-30.0) sec Sodium (137-145) mmol/L Chloride (98-107) mmol/L Carbon Dioxide (22-30) mmol/L BUN (9-20) mg/dL Glucose (74-99) mg/dL POC Glucose (mg/dL) 68 L (70-110) mg/dL Calcium (8.4-10.2) mg/dL ALT (4-49) U/L Total Protein (6.3-8.2) g/dL Albumin (3.5-5.0) g/dL
[2023-03-28 16:32] LABS: Glucose,Whole Blood 146 mg/dL (70-110)
[2023-03-28] MEDS: WARFARIN 5 MG TAB PO SCH (17:17)
--- NOTE | 2023-03-28 18:26 | P.PN ---
Subjective Progress Note Date: 03/28/23 Atrial fibrillation The patient is an 87-year-old gentleman with chronic obstructive pulmonary disease and chronic hypoxic respiratory failure on oxygen as well as history of thoracic aortic aneurysm and also history of paroxysmal atrial fibrillation and multiple comorbid conditions. The patient presented to the emergency department complaining of hemoptysis and increasing in the shortness of breath. He was diagnosed with COPD exacerbation. Also he was found to be in atrial fibrillation with rapid ventricular response. He is known to have paroxysmal atrial fibrillation on anticoagulation was Coumadin as well as type IC antiarrhythmic medication with the flecainide and he states he has been co mpliant with all of his medications. When he presented he was in atrial fibrillation with rapid ventricular response and he was started on Cardizem IV and continues to be on Cardizem IV at 5 mg per hour. His heart rate is around 100 bpm. He remains in atrial fibrillation. His INR was supratherapeutic at 4.7 when he presented. INR today is 2.8. The patient is known to have left upper lobe mass and he is in process of having possible computed tomography scan for further clarification. On examination he does have diminished breathing sounds bilaterally with a regular rhythm and systolic murmur at the right and upper sternal border. March 232022 The patient was seen and evaluated this morning. He is still short of breath. No more hemoptysis. The INR is stopped her relative. Meanwhile I'm going to start the patient on heparin IV until we make sure that he is not going to un dergo any procedure for the mass in the lung. The computed tomography scan showed possible mass in the lung with differential diagnosis of pneumonia. Also the computed tomography scan showed thoracic aortic aneurysm. 03/24/2023 The patient was seen and evaluated this morning. She is feeling slightly better. History short of breath and he stated hypoxic. He is tachycardic. I'm going to increase the dose of metoprolol to 25 mg by mouth 3 times a day. He does have bilateral lower extremity strength ankle edema. He supposed to be on oral diuretics and that was not restarted on going to restart him back on oral diuretics. Continue IV heparin at this point to know that the patient doesn't require any procedure and at that point I will switch him back to either Coumadin or any oral anticoagulation. The examination is remarkable for some diminished breathing sounds bilaterally with bilateral lower extremity strength ankle edema. The echo showed preserved systolic function was mild to moderate valvular abnormalities and dilated right ventricle. 03/25/2023 The patient was seen this morning. He continues to be short of breath. No pain in the chest. Hemodynamically he is stable. He continues to be on heparin IV. I would consider starting the patient back on Coumadin and there is no need or any invasive procedure like bronchoscopy and biopsy needed. Examination is remarkable for diminished breathing sounds bilaterally and systolic murmur at the right upper sternal border 03/26/2023 The patient was seen and evaluated this morning. He still short of breath. The shortness of breath has somewhat slightly improved. No chest pain and no chest discomfort and no dizziness or lightheadedness and no presyncope or syncope. The examination is remarkable for diminished breathing sounds bilaterally that has somewhat slightly improved. He does also have a systolic murmur at the right upper sternal border. He continues to be on heparin IV for possible bronchoscopy and possible biopsy tomorrow after that he can be switched into oral anticoagulation and he was on Coumadin before 03/28/23 Patient continues to report shortness of breath with mild improvement. He salas es any chest pain chest pressure. He is hemodynamics stable. Assessment COPD exacerbation Lung mass currently is under investigation Hemoptysis Supratherapeutic INR Paroxysmal atrial fibrillation Atrial fibrillation with RVR Valvular abnormalities Plan Continue the current medical regimen Continue warfarin Objective - Vital Signs Vital signs: Vital Signs Temp 98.0 F 03/28/23 16:00 Pulse 88 03/28/23 17:44 Resp 14 03/28/23 16:00 BP 148/75 03/28/23 16:00 Pulse Ox 98 03/28/23 16:00 FiO2 Intake & Output 03/27/23 03/28/23 03/28/23 18:59 06:59 18:59 Intake Total 654.779 35.779 829.492 Output Total 550 650 600 Balance 104.779 -614.221 229.492 Weight 58.5 kg 61.7 kg Intake: Intake, IV Titration 234.779 35.779 169.492 Amount Heparin Sod,Pork in 0.45% 156.332 NaCl 25,000 unit In 0.45 % NaCl 1 250ml.bag @ 12 UNITS/KG/HR 7.224 mls/hr IV .Q24H [facility] Rx#: [id number] Heparin Sod,Pork in 0.45% 78.447 35.779 169.492 NaCl 25,000 unit In 0.45 % NaCl 1 250ml.bag @ 19. 624 UNITS/KG/HR 11.48 mls /hr IV .[id number] [facility] Rx#: [id number] Oral 420 660 Output: Urine 550 650 600 Other: Voiding Method Toilet Toilet Toilet Urinal Urinal Urinal # Voids 2 2 - Labs CBC & Chem 7: 03/28/23 08:40 03/28/23 08:40 Labs: Abnormal Lab Results - Last 24 Hours (Table) 03/27/23 03/27/23 03/28/23 Range/Units 17:36 21:06 08:40 WBC (3.8-10.6) k/uL Hgb (13.0-17.5) gm/dL RDW (11.5-15.5) % PT 16.7 H (10.0-12.5) sec INR 1.6 H (<1.2) APTT 56.8 H 84.3 H (22.0-30.0) sec Sodium (137-145) mmol/L Chloride (98-107) mmol/L Carbon Dioxide (22-30) mmol/L BUN (9-20) mg/dL Glucose (74-99) mg/dL POC Glucose (mg/dL) 158 H (70-110) mg/dL Calcium (8.4-10.2) mg/dL ALT (4-49) U/L Total Protein (6.3-8.2) g/dL Albumin (3.5-5.0) g/dL 03/28/23 03/28/23 03/28/23 Range/Units 08:40 08:40 11:28 WBC 18.4 H (3.8-10.6) k/uL Hgb 12.4 L (13.0-17.5) gm/dL RDW 15.8 H (11.5-15.5) % PT (10.0-12.5) sec INR (<1.2) APTT (22.0-30.0) sec Sodium 131 L (137-145) mmol/L Chloride 88 L (98-107) mmol/L Carbon Dioxide 35 H (22-30) mmol/L BUN 29 H (9-20) mg/dL Glucose 104 H (74-99) mg/dL POC Glucose (mg/dL) 68 L (70-110) mg/dL Calcium 8.0 L (8.4-10.2) mg/dL ALT 107 H (4-49) U/L Total Protein 5.9 L (6.3-8.2) g/dL Albumin 3.2 L (3.5-5.0) g/dL 03/28/23 Range/Units 16:31 WBC (3.8-10.6) k/uL Hgb (13.0-17.5) gm/dL RDW (11.5-15.5) % PT (10.0-12.5) sec INR (<1.2) APTT (22.0-30.0) sec Sodium (137-145) mmol/L Chloride (98-107) mmol/L Carbon Dioxide (22-30) mmol/L BUN (9-20) mg/dL Glucose (74-99) mg/dL POC Glucose (mg/dL) 146 H (70-110) mg/dL Calcium (8.4-10.2) mg/dL ALT (4-49) U/L Total Protein (6.3-8.2) g/dL Albumin (3.5-5.0) g/dL
[2023-03-28 20:31] LABS: Glucose,Whole Blood 118 mg/dL (70-110)
[2023-03-28] MEDS: MELATONIN 3 MG TABLET PO SCH (21:16)
[2023-03-29] MEDS: PIPERACILLIN-TAZOBACTAM 3.375 GM in SODIUM CHLORIDE 0.9% 100 ML IVPB SCH ×2 (01:25→08:34)
[2023-03-29 06:10] LABS: Glucose,Whole Blood 89 mg/dL (70-110)
[2023-03-29] MEDS: methylPREDNISolone SOD SUCCI 40 MG/ML 1 ML VIAL IV SCH (08:34)
[2023-03-29] MEDS: METOPROLOL TARTRATE 25 MG TAB PO SCH (08:35)
[2023-03-29] MEDS: SPIRONOLACTONE 25 MG TAB PO SCH (08:35)
[2023-03-29] MEDS: DOCUSATE 100 MG CAP PO SCH (08:35)
[2023-03-29] MEDS: FUROSEMIDE 20 MG TAB PO SCH (08:35)
[2023-03-29] MEDS: MULTIVITAMINS, THERA 1 EACH TAB PO SCH (08:35)
[2023-03-29] MEDS: NYSTATIN 100,000 UNIT/ML SUSP 500,000 UNIT/5 ML CUP PO SCH ×2 (08:35→14:15)
[2023-03-29] MEDS: FLECAINIDE 50 MG TAB PO SCH (08:35)
[2023-03-29 08:36] VITALS: TEMP 97.9
[2023-03-29] MEDS: IPRATROPIUM-ALBUTEROL 3 ML NEB INHALATION SCH ×3 (08:41→16:00)
[2023-03-29] MEDS: BUDESONIDE 1 MG/2 ML NEBU INHALATION SCH (08:41)
[2023-03-29] MEDS: FORMOTEROL FUMARATE 20 MCG/2 ML NEBU INHALATION SCH (08:41)
[2023-03-29] MEDS: polyethylene glycoL 3350 17 GM POWD.PACK PO SCH (08:46)
[2023-03-29 10:37] LABS: Basophils % (A) 0 %; Eosinophils % (A) 0 %; HCT 39.7 % (39.0-53.0); HGB 12.3 gm/dL (13.0-17.5); Hypochromasia Moderate; Lymphocytes # (A) 0.5 k/uL (1.0-4.8); Lymphocytes % (A) 3 %; MCH 26.9 pg (25.0-35.0); MCV 86.9 fL (80.0-100.0); Mean Platelet Volume 8.2; Monocytes # (A) 0.4 k/uL (0-1.0); Monocytes % (A) 3 %; Neutrophils # (A) 14.7 k/uL (1.3-7.7); Neutrophils % (A) 93 %; Platelet Count 390 k/uL (150-450); RBC 4.57 m/uL (4.30-5.90); RDW 15.7 % (11.5-15.5); WBC 15.7 k/uL (3.8-10.6)
[2023-03-29 10:47] LABS: INR 1.9 (<1.2); Prothrombin Time 19.1 sec (10.0-12.5)
[2023-03-29 11:13] LABS: ALT 93 U/L (4-49); AST 47 U/L (17-59); African American GFR (CKD) >90 (>60 ml/min/1.73 sqM); Albumin 3.2 g/dL (3.5-5.0); Alkaline Phosphatase 109 U/L (38-126); Anion Gap 6 mmol/L; Blood Urea Nitrogen 32 mg/dL (9-20); Calcium 8.2 mg/dL (8.4-10.2); Carbon Dioxide 39 mmol/L (22-30); Chloride 87 mmol/L (98-107); Glucose 62 mg/dL (74-99); Non-African American GFR(CKD) 78 (>60 ml/min/1.73 sqM); Potassium 3.8 mmol/L (3.5-5.1); Sodium 132 mmol/L (137-145); Total Bilirubin 0.6 mg/dL (0.2-1.3); Total Protein 5.8 g/dL (6.3-8.2)
[2023-03-29 11:44] LABS: Glucose,Whole Blood 68 mg/dL (70-110)
[2023-03-29 12:39] VITALS: BP 120/74; RESP 18
--- NOTE | 2023-03-29 13:30 | P.PN ---
Subjective Progress Note Date: 03/29/23 Principal diagnosis: Respiratory failure. The patient is seen today 03/23/2023 in follow-up on the selective care unit. He is currently sitting up at the bedside. Awake and alert in no acute distress. He is on oxygen at 4 L/m per nasal cannula. He remains in atrial fibrillation. His warfarin has been on hold for possible bronchoscopy. He'll be initiated on a heparin drip for now. He is continued on ceftriaxone. Computed tomography scan of the chest revealed acute right lower lobe superior segment airspace consolidation concerning for pneumonia. He has a stable 14 mm right lower lung peripheral pulmonary nodule that had been followed in the outpatient setting. He is continued on bronchodilators, steroids, oral diuretics. White count 12.6. Hemoglobin 10.9. Platelets 394. Sodium 133. Potassium 4.5. Bicarb 24. BUN 31. Creatinine 0.74. Glucose 162. AST 87. AST 65. The patient is seen today 03/24/2023 in follow-up on the selective care unit. He is awake and alert in no acute distress. Sitting up in bed. Feeling a bit better today compared to yesterday. He has been somewhat slow to progress. He is maintaining O2 saturations in the 90s on 4 L/m per nasal cannula. Chest x- ray continues to show a right lower lobe masslike infiltrate. Additional basilar infiltrate/atelectasis seen as well. His sputum culture is now positive for pseudomonas aeruginosa. Blood cultures revealed no growth. He is currently on ceftriaxone. Maintained on DuoNeb inhalations, Pulmicort and Perforomist inhalations, Solu-Medrol. Continued on oral diuretics. White count 10.4. Hemoglobin 11.2. Platelets 422. Sodium 134. Potassium 4.1. Bicarb 25. BUN 42. Creatinine 0.91. AST 100. ALT 112. Patient was seen today on 03/25/2023, no more bright red blood/hemoptysis, however the patient clearly has some brownish/chocolate like colored sputum intermittently. Patient is on heparin, and his sputum was positive for pseudomonas aeruginosa hence was started the patient yesterday on Zosyn. Coumadin remains on hold. Patient remains on bronchodilators, he also remains on steroids, and I'm still wondering whether the patient truly needs to have bronchoscopy, most likely at this point he does not need to be bronchoscoped especially if he clinically improves and his chest x-ray shows improvement. Again I believe the findings in the right lung are mostly consolidation findings/pneumonia findings are than malignancy related findings. Although that is not entirely ruled out. WBC count today is 10.3 hemoglobin is 10 basic metabolic profile is normal renal profile is normal Reevaluated today on 03/26/2023, patient remains on heparin remains on antibiotics in the form of Zosyn remains on bronchodilators, no further episodes of hemoptysis. Patient is doing great overall, however there is still a concern whether the patient may require bronchoscopy, and I'm recommending a repeat chest x-ray in a.m. If the chest x-ray shows improvement, then no need for bronchoscopy if no improvement, Dr. Zapata would have to decide on whether to bronchoscope the patient forgot. This patient is familiar to her's service, and has been seeing him for a separate nodule best not related to this issue at present. Labs today showed the risk of 17.1 hemoglobin 11.8 basic metabolic profile is normal and renal profile is normal Progress note dated 03/27/2023. The patient is seen today in room 373. He appears to be doing a bit better. He's currently on 4 L of oxygen. He continues on Zosyn. His sputum evaluation was positive for Pseudomonas. Today, we'll convert the Solu-Medrol to oral prednisone and budesonide and formoterol to Symbicort. The patient typically sees me in the office anyway. He is sitting in a chair next to his bed. His is in the room with him. Labs today include a glucose of 92, PT of 15.7, INR 1.5, and a PTT of 104.8. Chest x-ray today shows COPD, with infiltrate, and a right upper lobe, which is in our opinion, significantly improved. Progress note dated 03/28/2023. 87-year-old male, seen in room 373. Currently, the patient is on 4 L of oxygen. The patient's on IV heparin, but that can be changed over to Coumadin. The patient's sputum was positive for Pseudomonas, and for that, he is on Zosyn. Labs today include a white count of 18.4, hemoglobin 12.4, hematocrit 39.9, and a normal platelet count. PTT is 84.3. Sodium 131, potassium 3.8, chlorides 88, CO2 35, BUN 29, creatinine 0.85. Albumin is 3.2. Glucose 68. Chest x-ray from the , shows improvement in his right upper lung infiltrate. Progress note dated 03/29/2023. 87-year-old male, seen in room 373. The patient continues on oxygen at 4 L. His Zosyn will be converted to ciprofloxacin, his budesonide and formoterol, will be converted to Symbicort, and his Solu-Medrol, will be changed to prednisone. The patient is being evaluated for possible discharge. The patient's sputum was positive for Pseudomonas. His white count is 15.7, hemoglobin 12.3, hematocrit 39.7, and normal platelet count. PT was 19.1 with an INR 1.9. Sodium 132, potassium 3.8, chlorides 87, CO2 39, BUN 32, and creatinine 0.87. Albumin is 3.2. Objective - Vital Signs Vital signs: Vital Signs Temp 97.9 F 03/29/23 08:32 Pulse 97 03/29/23 12:30 Resp 18 03/29/23 12:30 BP 120/74 03/29/23 12:30 Pulse Ox 95 03/29/23 12:30 FiO2 Intake & Output 03/28/23 03/29/23 03/29/23 18:59 06:59 18:59 Intake Total 829.492 Output Total 600 300 Balance 229.492 -300 Weight 58.9 kg Intake: Intake, IV Titration 169.492 Amount Heparin Sod,Pork in 0.45% 169.492 NaCl 25,000 unit In 0.45 % NaCl 1 250ml.bag @ 19. 624 UNITS/KG/HR 11.48 mls /hr IV .[id number] [facility] Rx#: [id number] Oral 660 Output: Urine 600 300 Other: Voiding Method Toilet Toilet Toilet Urinal Urinal Urinal # Voids 2 3 - Exam No acute distress, oriented 3. The patient is currently on 4 L of oxygen. No audible wheezing, use of accessory muscles. HEENT examination is grossly unremarkable. Neck supple. Full range of motion. No adenopathy thyromegaly or neck vein distention. Cardiovascular examination reveals regular rhythm rate. S1-S2 normal. No S3 or S4. No discernible murmur noted. Heart sounds are distant. Heart rate 82 bpm. Lungs reveal scattered diffuse rhonchi. Mild expiratory wheezes noted. There are no crackles. Breath sounds are equal bilaterally, but diminished throughout. 4 L saturation is 95 %. Abdomen soft bowel sounds are heard. No masses or tenderness. Extremities are intact. No cyanosis or clubbing. Lower extremity edema is noted. Skin is without rash or lesion. Neurologic examination is brief but nonfocal. - Labs CBC & Chem 7: 03/29/23 09:51 03/29/23 09:51 Labs: Abnormal Lab Results - Last 24 Hours (Table) 03/28/23 03/28/23 03/29/23 Range/Units 16:31 20:30 09:51 WBC (3.8-10.6) k/uL Hgb (13.0-17.5) gm/dL RDW (11.5-15.5) % Neutrophils # (1.3-7.7) k/uL Lymphocytes # (1.0-4.8) k/uL PT 19.1 H (10.0-12.5) sec INR 1.9 H (<1.2) Sodium (137-145) mmol/L Chloride (98-107) mmol/L Carbon Dioxide (22-30) mmol/L BUN (9-20) mg/dL Glucose (74-99) mg/dL POC Glucose (mg/dL) 146 H 118 H (70-110) mg/dL Calcium (8.4-10.2) mg/dL ALT (4-49) U/L Total Protein (6.3-8.2) g/dL Albumin (3.5-5.0) g/dL 03/29/23 03/29/23 03/29/23 Range/Units 09:51 09:51 11:42 WBC 15.7 H (3.8-10.6) k/uL Hgb 12.3 L (13.0-17.5) gm/dL RDW 15.7 H (11.5-15.5) % Neutrophils # 14.7 H (1.3-7.7) k/uL Lymphocytes # 0.5 L (1.0-4.8) k/uL PT (10.0-12.5) sec INR (<1.2) Sodium 132 L (137-145) mmol/L Chloride 87 L (98-107) mmol/L Carbon Dioxide 39 H (22-30) mmol/L BUN 32 H (9-20) mg/dL Glucose 62 L (74-99) mg/dL POC Glucose (mg/dL) 68 L (70-110) mg/dL Calcium 8.2 L (8.4-10.2) mg/dL ALT 93 H (4-49) U/L Total Protein 5.8 L (6.3-8.2) g/dL Albumin 3.2 L (3.5-5.0) g/dL Assessment and Plan Assessment: Acute on chronic hypoxemic respiratory failure, multifactorial. Acute Pseudomonas pneumonia, right lung. Hemoptysis, secondary to above. History of solitary pulmonary nodule, being followed as an outpatient. Mild liver function abnormalities. History of ascending aortic thoracic aneurysm. Tobacco dependence syndrome. 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 Plan: Plan dated 03/27/2023. The patient is feeling better. He's on 4 L of oxygen. The patient continues on Zosyn for pseudomonas in the sputum, and presumed Pseudomonas pneumonia. Solu- Medrol is converted to prednisone. In addition, updrafts with budesonide, and formoterol, are switched to Symbicort. We will continue to follow and make recommendations along the way. The patient's overall prognosis remains very guarded. His most recent chest x-ray is certainly improved. He will follow with me in the office after discharge. Plan dated 03/28/2023. The patient is improved. I don't believe the patient needs bronchoscopy at this time. The patient continues on oxygen at 4 L. The patient is not receiving any IV fluids. The heparin can be discontinued and Coumadin resumed. The patient continues on Zosyn for Pseudomonas. Labs, x-rays, medications are reviewed. Solu-Medrol was converted to prednisone. He is currently on Symbicort rather than budesonide and formoterol. His most recent chest x-ray, is improved. We will continue to follow make recommendations along the way. Prognosis is guarded. Plan dated 03/29/2023. The patient is hoping to be discharged soon. The patient decided against a bronchoscopy. The patient's Zosyn, will be changed to ciprofloxacin, 500 mg twice a day. In addition, his budesonide and formoterol updrafts will be converted to Symbicort 160/4.5, 2 puffs twice a day. Finally, his Solu-Medrol, will be changed to prednisone 40 mg a day. The patient will follow-up with me in the office. Labs, x-rays, medications are all reviewed. His most recent chest x-ray shows improvement. His overall prognosis remains guarded. No additional recommendations at this time. Time with Patient: Less than 30
--- NOTE | 2023-03-29 14:46 | P.PN ---
Subjective HISTORY OF PRESENT ILLNESS: The patient is an 87-year-old gentleman with chronic obstructive pulmonary disease and chronic hypoxic respiratory failure on oxygen as well as history of thoracic aortic aneurysm and also history of paroxysmal atrial fibrillation and multiple comorbid conditions. The patient presented to the emergency department complaining of hemoptysis and increasing in the shortness of breath. He was di agnosed with COPD exacerbation. Also he was found to be in atrial fibrillation with rapid ventricular response. He is known to have paroxysmal atrial fibrillation on anticoagulation was Coumadin as well as type IC antiarrhythmic medication with the flecainide and he states he has been compliant with all of his medications. When he presented he was in atrial fibrillation with rapid ventricular response and he was started on Cardizem IV and continues to be on Cardizem IV at 5 mg per hour. His heart rate is around 100 bpm. He remains in atrial fibrillation. His INR was supratherapeutic at 4.7 when he presented. INR today is 2.8. The patient is known to have left upper lobe mass and he is in process of having possible computed tomography scan for further clarification. On examination he does have diminished breathing sounds bilaterally with a regular rhythm and systolic murmur at the right and upper sternal border. March 232022 The patient was seen and evaluated this morning. He is still short of breath. No more hemoptysis. The INR is stopped her relative. Meanwhile I'm going to start the patient on heparin IV until we make sure that he is not going to undergo any procedure for the mass in the lung. The computed tomography scan showed possible mass in the lung with differential diagnosis of pneumonia. Also the computed tomography scan showed thoracic aortic aneurysm. 03/24/2023 The patient was seen and evaluated this morning. She is feeling slightly anita r. History short of breath and he stated hypoxic. He is tachycardic. I'm going to increase the dose of metoprolol to 25 mg by mouth 3 times a day. He does have bilateral lower extremity strength ankle edema. He supposed to be on oral diuretics and that was not restarted on going to restart him back on oral diuretics. Continue IV heparin at this point to know that the patient doesn't require any procedure and at that point I will switch him back to either Coumadin or any oral anticoagulation. The examination is remarkable for some diminished breathing sounds bilaterally with bilateral lower extremity strength ankle edema. The echo showed preserved systolic function was mild to moderate valvular abnormalities and dilated right ventricle. 03/25/2023 The patient was seen this morning. He continues to be short of breath. No pain in the chest. Hemodynamically he is stable. He continues to be on heparin IV. I would consider starting the patient back on Coumadin and there is no need or any invasive procedure like bronchoscopy and biopsy needed. Examination is remarkable for diminished breathing sounds bilaterally and systolic murmur at the right upper sternal border 03/26/2023 The patient was seen and evaluated this morning. He still short of breath. The shortness of breath has somewhat slightly improved. No chest pain and no chest discomfort and no dizziness or lightheadedness and no presyncope or syncope. The examination is remarkable for diminished breathing sounds bilaterally that has somewhat slightly improved. He does also have a systolic murmur at the ri t upper sternal border. He continues to be on heparin IV for possible bronchoscopy and possible biopsy tomorrow after that he can be switched into oral anticoagulation and he was on Coumadin before 03/28/23 Patient continues to report shortness of breath with mild improvement. He denies any chest pain chest pressure. He is hemodynamics stable. 03/29/2023 Patient examined this morning at the bedside. He is sitting on the side of the bed. Patient denies chest pain or pressure. He denies shortness of breath. Patient remains on Coumadin. INR today 1.9. Patient continues to have dependent edema. PHYSICAL EXAM: VITAL SIGNS: Reviewed. GENERAL: Well-developed in no acute distress. NECK: Supple. No JVD or thyromegaly LUNGS: Respirations even and unlabored. Lungs essentially clear to auscultation bilaterally. HEART: Regular rate and rhythm. S1 and S2 heard. EXTREMITIES: Normal range of motion. No clubbing or cyanosis. Peripheral pulse s intact. Patient with edema of bilateral feet and ankles ASSESSMENT: COPD exacerbation Hemoptysis Supratherapeutic INR on admission Paroxysmal atrial fibrillation with RVR, currently rate controlled Valvular abnormalities Lung nodule, followed by pulmonary services PLAN: Continue oral diuretics Continue Coumadin. Monitor INR. Continue additional cardiac medications Patient is currently stable from a cardiac perspective Case management to obtain home INR monitoring device for patient Further recommendations pending patient's course Nurse practitioner note has been reviewed by physician. Signing provider agrees with the documented findings, assessment, and plan of care. Objective - Vital Signs Vital signs: Vital Signs Temp 97.9 F 03/29/23 08:32 Pulse 97 03/29/23 12:30 Resp 18 03/29/23 12:30 BP 120/74 03/29/23 12:30 Pulse Ox 95 03/29/23 12:30 FiO2 Intake & Output 03/28/23 03/29/23 03/29/23 18:59 06:59 18:59 Intake Total 829.492 118 Output Total 600 300 Balance 229.492 -300 118 Weight 58.9 kg Intake: Intake, IV Titration 169.492 Amount Heparin Sod,Pork in 0.45% 169.492 NaCl 25,000 unit In 0.45 % NaCl 1 250ml.bag @ 19. 624 UNITS/KG/HR 11.48 mls /hr IV .[id number] [facility] Rx#: [id number] Oral 660 118 Output: Urine 600 300 Other: Voiding Method Toilet Toilet Toilet Urinal Urinal Urinal # Voids 2 3 - Labs CBC & Chem 7: 03/29/23 09:51 03/29/23 09:51 Labs: Abnormal Lab Results - Last 24 Hours (Table) 03/28/23 03/28/23 03/29/23 Range/Units 16:31 20:30 09:51 WBC (3.8-10.6) k/uL Hgb (13.0-17.5) gm/dL RDW (11.5-15.5) % Neutrophils # (1.3-7.7) k/uL Lymphocytes # (1.0-4.8) k/uL PT 19.1 H (10.0-12.5) sec INR 1.9 H (<1.2) Sodium (137-145) mmol/L Chloride (98-107) mmol/L Carbon Dioxide (22-30) mmol/L BUN (9-20) mg/dL Glucose (74-99) mg/dL POC Glucose (mg/dL) 146 H 118 H (70-110) mg/dL Calcium (8.4-10.2) mg/dL ALT (4-49) U/L Total Protein (6.3-8.2) g/dL Albumin (3.5-5.0) g/dL 03/29/23 03/29/23 03/29/23 Range/Units 09:51 09:51 11:42 WBC 15.7 H (3.8-10.6) k/uL Hgb 12.3 L (13.0-17.5) gm/dL RDW 15.7 H (11.5-15.5) % Neutrophils # 14.7 H (1.3-7.7) k/uL Lymphocytes # 0.5 L (1.0-4.8) k/uL PT (10.0-12.5) sec INR (<1.2) Sodium 132 L (137-145) mmol/L Chloride 87 L (98-107) mmol/L Carbon Dioxide 39 H (22-30) mmol/L BUN 32 H (9-20) mg/dL Glucose 62 L (74-99) mg/dL POC Glucose (mg/dL) 68 L (70-110) mg/dL Calcium 8.2 L (8.4-10.2) mg/dL ALT 93 H (4-49) U/L Total Protein 5.8 L (6.3-8.2) g/dL Albumin 3.2 L (3.5-5.0) g/dL
--- NOTE | 2023-03-29 15:53 | P.DS ---
Providers Date of admission: 03/21/23 16:57 Expected date of discharge: 03/29/23 Attending physician: Eugene Todd Consults: 03/21/23 16:54 Consult Physician Routine Consulting Provider: Alis Tena Consult Reason/Comments: Multifocal pneumonia Do you want consulting provider notified?: Yes 03/21/23 17:20 Consult Physician Urgent Consulting Provider: Javier Ward Consult Reason/Comments: a flutter Do you want consulting provider notified?: Yes Primary care physician: Eugene Todd Hospital Course: HISTORY OF PRESENT ILLNESS: This is an 87-year-old male with a previous medical history significant for 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 failure on oxygen at home, paroxysmal atrial for depression, thoracic aortic aneurysm, abdominal aortic aneurysm, chronic diastolic heart failure, chronic pulmonary hypertension, patient presented to the emergency department at [facility] with acute shortness breath associated with increased coughing of yellowish and blood frothy sputum, has been having increased shortness breath over the last 3 days, he was complain of some fever and chills, he also was complaining of increased diarrhea over the last 24 hours, patient was seen and evaluated in emergency room and he was found to have leukocytosis, a 16,000, he also found to have coagulopathy due to his INR being elevated, patient had a chest x-ray that didn't show evidence of multilobar pneumonia as well as left lower lobe mass that he has been following with Dr. Zapata as an outpatient, patient was started on IV Solu-Medrol 60 mg IV push every 6 hours, DuoNeb 3 mg nebulization 4 times every day, he was also started on IV antibiotic in the form of Rocephin 1 g every 24 hours as well as Zithromax 500 mg orally once every day, urine Legionella antigen, mycoplasma antibody IgG and IgM, he was also started on Pulmicort 1 mg position twice every day he was admitted to the hospital he also was found to have atrial fibrillation with rapid ventricular response, he was seen in consultation by cardiology was started on Cardizem drip and he was also started back on his Tambocor 50 mg orally twice every day. 03/22: Patient is sitting up in bed is feeling better today, he continues to have some coughing and minimal from production, minimal blood he denies any fever at this time, he has no chills, he continues to be feeling weak, he denies any abdominal pain, nausea or vomiting, he has not had a bowel movement today, he continues to have swelling but this point than yesterday, his insulin, he had related to the bathroom, he denies any dizziness or lightheadedness, no syncopal episode. Monitor showing atrial fibrillation with controlled rate. 03/27: Patient remains afebrile, heart rate in the 90s, blood pressure 107/77, pulse ox 96% on 4 L nasal cannula. Repeat blood work reveals INR is 1.5. Patient remains on heparin drip and pharmacy is dosing Coumadin. Repeat CBC and CMP ordered for tomorrow. Patient is followed by pulmonary medicine and cardiology. Respiratory status is improving. Solu-Medrol has been transitioned to oral prednisone and budesonide and formoterol to Symbicort. Repeat chest x- ray reveals COPD with bilateral infiltrate and pleural effusion most typical of pneumonia. Slight improvement of the right upper lobe. No plan for bronchoscopy and biopsy. Telemetry is atrial fibrillation with controlled ventricular rate. Patient has been evaluated by therapy with recommendations for home with home care. 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 Legionella antigen negative. Mycoplasma IgG high with normal IgM. Covid 19 not detected. 03/28: Patient is gradually improving. Bronchoscopy is not scheduled for tomorrow. Patient remains on heparin drip which has been discontinued by primary medicine. Patient remains on Coumadin and pharmacy pharmacy is dosing Coumadin. Patient remains on Zosyn for pneumonia. He has been afebrile, heart rate in 60s and 70s, blood pressure 123/75, pulse ox 99% on 4 L. Repeat blood work reveals WBC 18.4, hemoglobin 12.4, platelet count 391. INR 1.6. Sodium 131, potassium 3.8, chloride 88, CO2 35, BUN 29 creatinine 0.85. Patient remains on IV Solu-Medrol. 03/29: Patient has been transitioned from IV Zosyn to oral ciprofloxacin. Pulse ox is 95% on 4 L nasal cannula. Heart rate is in the 80s and 90s, blood pressure 120/74. Repeat blood work reveals WBC 15.7, hemoglobin 12.3. INR 1.9. BUN 32 creatinine 0.87. A blood glucose running between 68 and 146. Patient ambulated in the hallway around the [place] [address] today. He states he does not have any cough or not much anymore. He is on his baseline oxygen need. Patient will need follow-up in the office with Dr. Zapata. Patient will be discharged home today in stable condition. DISCHARGE DIAGNOSES: 1. 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 2. Acute diastolic heart failure with severe pulmonary hypertension. 3. Atrial fibrillation with rapid ventricular response, now rate controlled. 4. Leukocytosis likely related to to multilobar pneumonia with sepsis. 5. Coagulopathy due to Coumadin use and sepsis. 6. Atrial fibrillation 7. Thoracic aortic aneurysm. 8. Abdominal aortic and nursing. 9. Bullous pemphigoid. DISCHARGE PLAN: Home with [facility]idential [facility]. Greater than 35 minutes was utilized and coordinating patient's discharge. Impression and plan of care have been directed as dictated by the signing physician. Mandie De La Torre nurse practitioner acting as scribe for signing physician. Patient Condition at Discharge: Serious Plan - Discharge Summary Discharge Rx Participant: Yes New Discharge Prescriptions: New Metoprolol Tartrate [Lopressor] 25 mg PO TID #90 tab Ciprofloxacin HCl [Cipro] 500 mg PO BID #14 tab Docusate [Colace] 100 mg PO BID cap polyethylene glycoL 3350 [Miralax] 17 gm PO DAILY packet Nystatin 100,000 Unit/ml Susp [Mycostatin Oral Susp] 500,000 unit PO QID #100 ml predniSONE 0 mg PO DIRECTED #30 tab Budesonide-Formot 160-4.5 Mcg [Symbicort 160-4.5 Mcg Inhaler] 2 puff INHALATION RT-BID #1 each Continue Warfarin [Coumadin] 5 mg PO DAILY diphenhydrAMINE [Benadryl] 100 mg PO BID PRN PRN Reason: ITCHING/ALLERGIES Flecainide [Tambocor] 50 mg PO Q12HR Acetaminophen [Tylenol] 1,000 mg PO QID PRN PRN Reason: Pain Or Fever > 100.5 Triamcinolone 0.1% Cream [Kenalog 0.1% Cream] 1 applicatio TOPICAL BID PRN PRN Reason: RASH/DRY SKIN Spironolactone [Aldactone] 25 mg PO DAILY Multivitamins, Thera [Multivitamin (formulary)] 1 tab PO DAILY Albuterol Sulfate [Albuterol Sulfate Hfa] 2 puff INHALATION RT-QID PRN PRN Reason: Shortness Of Breath Furosemide [Lasix] 20 mg PO DAILY Ipratropium-Albuterol Nebulize [Duoneb 0.5 mg-3 mg/3 ml Soln] 3 ml INHALATION RT-QID Discharge Medication List Flecainide [Tambocor] 50 mg PO Q12HR 09/27/17 [History] Warfarin [Coumadin] 5 mg PO DAILY 09/27/17 [History] diphenhydrAMINE [Benadryl] 100 mg PO BID PRN 09/27/17 [History] Acetaminophen [Tylenol] 1,000 mg PO QID PRN 05/21/20 [History] Albuterol Sulfate [Albuterol Sulfate Hfa] 2 puff INHALATION RT-QID PRN 10/19/20 [History] Furosemide [Lasix] 20 mg PO DAILY 03/21/23 [History] Ipratropium-Albuterol Nebulize [Duoneb 0.5 mg-3 mg/3 ml Soln] 3 ml INHALATION RT-QID 03/21/23 [History] Multivitamins, Thera [Multivitamin (formulary)] 1 tab PO DAILY 03/21/23 [History] Spironolactone [Aldactone] 25 mg PO DAILY 03/21/23 [History] Triamcinolone 0.1% Cream [Kenalog 0.1% Cream] 1 applicatio TOPICAL BID PRN 03/21/23 [History] Budesonide-Formot 160-4.5 Mcg [Symbicort 160-4.5 Mcg Inhaler] 2 puff INHALATION RT-BID #1 each 03/29/23 [Rx] Ciprofloxacin HCl [Cipro] 500 mg PO BID #14 tab 03/29/23 [Rx] Docusate [Colace] 100 mg PO BID cap 03/29/23 [Rx] Metoprolol Tartrate [Lopressor] 25 mg PO TID #90 tab 03/29/23 [Rx] Nystatin 100,000 Unit/ml Susp [Mycostatin Oral Susp] 500,000 unit PO QID #100 ml 03/29/23 [Rx] polyethylene glycoL 3350 [Miralax] 17 gm PO DAILY packet 03/29/23 [Rx] predniSONE 0 mg PO DIRECTED #30 tab 03/29/23 [Rx] Follow up Appointment(s)/Referral(s): John Zapata DO [Doctor of Osteopathic Medicine] - [facility] Week [facility] [NON-STAFF] - Eugene Todd MD [Primary Care Provider] - 1 Week [facility] [Provider Group] - 2 Weeks Discharge Disposition: HOME WITH HOME HEALTH SERVICES
[2023-03-29 16:15] VITALS: PULSE 84
[2023-03-29] MEDS ORDERED: SYMBICORT 160-4.5 MCG INHALER INHALATION SCH (20:00)
[2023-03-29] MEDS ORDERED: CIPROFLOXACIN HCL 500 MG TAB PO SCH (21:00)
[2023-03-30] MEDS ORDERED: predniSONE 10 MG TAB PO SCH (09:00)
== END 2023-03-29 16:53 | disposition home health service (06) | DRG 871 ==
LOC: EC 12:22 → 3SCARD 16:57
PROVIDERS: ADMIT Internal Medicine; ATTEND Internal Medicine
DX: A41.52 Sepsis due to Pseudomonas (principal); I50.33 Acute on chronic diastolic (congestive) heart failure; J15.1 Pneumonia due to Pseudomonas; J96.21 Acute and chronic respiratory failure with hypoxia; D68.9 Coagulation defect, unspecified; J44.0 Chronic obstructive pulmonary disease with (acute) lower respiratory infection; I48.92 Unspecified atrial flutter; J44.1 Chronic obstructive pulmonary disease with (acute) exacerbation; L12.0 Bullous pemphigoid; J98.11 Atelectasis; R04.2 Hemoptysis; I27.20 Pulmonary hypertension, unspecified; I11.0 Hypertensive heart disease with heart failure; I71.20 Thoracic aortic aneurysm, without rupture, unspecified; I71.40 Abdominal aortic aneurysm, without rupture, unspecified; I48.0 Paroxysmal atrial fibrillation; T45.515A Adverse effect of anticoagulants, initial encounter; K59.00 Constipation, unspecified; M19.90 Unspecified osteoarthritis, unspecified site; R74.01 Elevation of levels of liver transaminase levels; R91.1 Solitary pulmonary nodule; Z99.81 Dependence on supplemental oxygen; Z79.01 Long term (current) use of anticoagulants; Z79.899 Other long term (current) drug therapy; Z87.891 Personal history of nicotine dependence
CPT/HCPCS: 36415; 71045; 71046; 71260; 80053; 83605; 83735; 85025; 85027; 85610; 85730; 86738; 87040; 87070; 87077; 87186; 87205; 87449; 87635; 93005; 93306; 94640; 94760; 96365; 96366; 96368; 96375; 96376; 99291

== ENCOUNTER → 2023-08-17 | Outpatient (CLI) | payer MEDICARE ==
[2023-08-17 21:33] LABS: INR >8.00 sec (0.93-1.11); Prothrombin Time 82.9 sec (9.9-11.9)
== END | disposition home or self-care (01) ==
LOC: LABWHC1 12:04
PROVIDERS: ATTEND Internal Medicine Critical Care Medicine
DX: I48.91 Unspecified atrial fibrillation (principal)
CPT/HCPCS: 36415; 85610

== ENCOUNTER 2023-09-20 18:08 | Inpatient (IN) | payer MEDICARE ==
--- NOTE | 2023-09-20 18:14 | ED ---
General Adult HPI - General Stated complaint: sob Time Seen by Provider: 09/20/23 18:12 Source: patient, RN notes reviewed, old records reviewed - History of Present Illness Initial comments: This is an 87-year-old male who presents to the emergency department with a past medical history significant for COPD. Patient states he started having difficulty breathing about 3 days ago and got progressively worse. Patient states he is coughing and coughing up quite a bit of sputum on occasion. Patient states he has swelling in the legs because of a bad valve. Patient also states he has chest heaviness today. Patient denies any recent fever or chills. Patient denies abdominal pain patient has any back pain. Patient denies headache patient denies any numbness or weakness. - Related Data Home Medications Medication Instructions Recorded Confirmed Flecainide [Tambocor] 50 mg PO Q12HR 09/27/17 03/21/23 Warfarin [Coumadin] 5 mg PO DAILY 09/27/17 03/21/23 diphenhydrAMINE [Benadryl] 100 mg PO BID PRN 09/27/17 03/21/23 Acetaminophen [Tylenol] 1,000 mg PO QID PRN 05/21/20 03/21/23 Albuterol Sulfate [Albuterol 2 puff INHALATION RT-QID PRN 10/19/20 03/21/23 Sulfate Hfa] Furosemide [Lasix] 20 mg PO DAILY 03/21/23 03/21/23 Ipratropium-Albuterol Nebulize 3 ml INHALATION RT-QID 03/21/23 03/21/23 [Duoneb 0.5 mg-3 mg/3 ml Soln] Multivitamins, Thera [Multivitamin 1 tab PO DAILY 03/21/23 03/21/23 (formulary)] Spironolactone [Aldactone] 25 mg PO DAILY 03/21/23 03/21/23 Triamcinolone 0.1% Cream [Kenalog 1 applicatio TOPICAL BID PRN 03/21/23 03/21/23 0.1% Cream] Previous Rx's Medication Instructions Recorded Budesonide-Formot 160-4.5 Mcg 2 puff INHALATION RT-BID #1 each 03/29/23 [Symbicort 160-4.5 Mcg Inhaler] Ciprofloxacin HCl [Cipro] 500 mg PO BID #14 tab 03/29/23 Docusate [Colace] 100 mg PO BID cap 03/29/23 Metoprolol Tartrate [Lopressor] 25 mg PO TID #90 tab 03/29/23 Nystatin 100,000 Unit/ml Susp 500,000 unit PO QID #100 ml 03/29/23 [Mycostatin Oral Susp] polyethylene glycoL 3350 [Miralax] 17 gm PO DAILY packet 03/29/23 predniSONE 0 mg PO DIRECTED #30 tab 03/29/23 Allergies Allergy/AdvReac Type Severity Reaction Status Date / Time No Known Allergies Allergy Verified 03/21/23 12:48 Review of Systems ROS Statement: Those systems with pertinent positive or pertinent negative responses have been documented in the HPI. ROS Other: All systems not noted in ROS Statement are negative. 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 History of Any Multi-Drug Resistant Organisms: None Reported Past Surgical History: Adenoidectomy, Hernia Repair, Tonsillectomy Additional Past Surgical History / Comment(s): ULCER REPAIR- 35 YEARS AGO, cataract bilateral Past Anesthesia/Blood Transfusion Reactions: No Reported Reaction Past Psychological History: No Psychological Hx Reported Smoking Status: Former smoker Past Alcohol Use History: Rare Past Drug Use History: None Reported - Past Family History Mother Family Medical History: Cancer Additional Family Medical History / Comment(s): from [place] (stomach) Father Family Medical History: Myocardial Infarction ([place]) Additional Family Medical History / Comment(s): passes away from aneurysm General Exam - General Exam Comments Initial Comments: GENERAL: Patient is well-developed and well-nourished. Patient is nontoxic and well- hydrated and is in mild distress. ENT: Neck is soft and supple. No significant lymphadenopathy is noted. Oropharynx is clear. Moist mucous membranes. Neck has full range of motion without eliciting any pain. EYES: The sclera were anicteric and conjunctiva were pink and moist. Extraocular movements were intact and pupils were equal round and reactive to light. Eyelids were unremarkable. PULMONARY: Unlabored respirations. Good breath sounds bilaterally. Patient has crackles in bilateral bases with some expiratory wheezing CARDIOVASCULAR: There is a regular rate and rhythm without any murmurs gallops or rubs. ABDOMEN: Soft and nontender with normal bowel sounds. SKIN: Skin is clear with no lesions or rashes and otherwise unremarkable. NEUROLOGIC: Patient is alert and oriented x3. Cranial nerves II through XII are grossly intact. Motor and sensory are also intact. Normal speech, volume and content. Symmetrical smile. MUSCULOSKELETAL: Normal extremities with adequate strength and full range of motion. 2+ edema bilateral LYMPHATICS: No significant lymphadenopathy is noted PSYCHIATRIC: Normal psychiatric evaluation. Course Vital Signs 09/20/23 09/20/23 09/20/23 18:14 18:26 19:06 Temperature 98.4 F Pulse Rate 106 H 107 H Respiratory 18 22 20 Rate Blood Pressure 107/80 85/58 O2 Sat by Pulse 99 96 Oximetry Medical Decision Making - Medical Decision Making EKG was interpreted by myself read EKG shows a rapid ventricular response of atrial fibrillation at 113 bpm QRS is 98 QT interval 332 QTc is 399. Patient's EKG shows no ST segment ovation or depression Was pt. sent in by a medical professional or institution (, PA, VICE [employer]IDENT [employer], urgent care, hospital, or [facility]...) When possible be specific @ -No Did you speak to anyone other than the patient for history (EMS, parent, family, police, friend...)? What history was obtained from this source @ -No Did you review nursing and triage notes (agree or disagree)? Why? @ -I reviewed and agree with nursing and triage notes Were old charts reviewed (outside hosp., previous admission, EMS record, old EKG, old radiological studies, urgent care reports/EKG's, [facility] records)? Report findings @ -I compared this chest x-ray with the previous x-ray the posterior opacification was there prior. I compared today's INR with prior INR today's INR is much higher at 9. Differential Diagnosis (chest pain, altered mental status, abdominal pain women, abdominal pain men, vaginal bleeding, weakness, fever, dyspnea, syncope, head ache, dizziness, GI bleed, back pain, seizure, CVA, palpatations, mental health, musculoskeletal)? @ -Not applicable EKG interpreted by me (3pts min.). @ -As above X-rays interpreted by me (1pt min.). @ -Chest x-ray shows a right posterior opacification could be a mass CT interpreted by me (1pt min.). @ -None done U/S interpreted by me (1pt. min.). @ -None done What testing was considered but not performed or refused? (CT, X-rays, U/S, labs)? Why? @ -None What meds were considered but not given or refused? Why? @ -None Did you discuss the management of the patient with other professionals (pr ofessionals i.e. , PA, [employer]ICE [employer], lab, RT, psych nurse, social and political studies professor, criminal defense lawyer, teacher, workplace rehabilitation officer, case management assistant)? Give summary @ -I spoke with Dr. Todd he agreed to admit the patient admit the patient wrote admitting orders Was smoking cessation discussed for >3mins.? @ -No Was critical care preformed (if so, how long)? @ -No Were there social determinants of health that impacted care today? How? (Homelessness, low income, unemployed, alcoholism, drug addiction, transportation, low edu. Level, literacy, decrease access to med. care, [facility], rehab)? @ -No Was there de-escalation of care discussed even if they declined (Discuss DNR or withdrawal of care, Hospice)? DNR status @ -No What co-morbidities impacted this encounter? (DM, HTN, Smoking, COPD, CAD, Cancer, CVA, ARF, Chemo, Hep., AIDS, mental health diagnosis, sleep apnea, morbid obesity)? @ -None Was patient admitted / discharged? Hospital course, mention meds given and route, prescriptions, significant lab abnormalities, going to OR and other pertinent info. @ -Patient has significant edema legs and did sound a little wet and his BNP was elevated so patient was given Lasix while in the emergency department. Patient was also given breathing treatments. Patient was also started on antibiotics because his bad COPD here. I admitted the patient with admitting orders I consulted pulmonology. Patient with the oxygenate into the 80s very quickly. Undiagnosed new problem with uncertain prognosis? @ -No Drug Therapy requiring intensive monitoring for toxicity (Heparin, Nitro, Insulin, Cardizem)? @ -No Were any procedures done? @ -No Diagnosis/symptom? @ -COPD exacerbation Acute, or Chronic, or Acute on Chronic? @ -Acute Uncomplicated (without systemic symptoms) or Complicated (systemic symptoms)? @ -Comp Side effects of treatment? @ -No Exacerbation, Progression, or Severe Exacerbation? @ -No Poses a threat to life or bodily function? How? (Chest pain, [place], [place], pneumonia, PE, COPD, DKA, ARF, appy, cholecystitis, CVA, Diverticulitis, Homicidal, Suicidal, threat to staff... and all critical care pts) @ -Yes this can lead to hypoxia and endorgan dysfunction Diagnosis/symptom? @ -Coagulopathy Acute, or Chronic, or Acute on Chronic? @ -Acute Uncomplicated (without systemic symptoms) or Complicated (systemic symptoms)? @ -Complicated Side effects of treatment? @ -None Exacerbation, Progression, or Severe Exacerbation] @ -No Poses a threat to life or bodily function? @ -No Diagnosis/symptom? @ -Lung mass Acute, or Chronic, or Acute on Chronic? @ -Acute on chronic Uncomplicated (without systemic symptoms) or Complicated (systemic symptoms)? @ -Complicated Side effects of treatment? @ -None Exacerbation, Progression, or Severe Exacerbation] @ -No Poses a threat to life or bodily function? @ -No - Lab Data Result diagrams: 09/20/23 18:15 09/20/23 18:15 Lab Results 09/20/23 09/20/23 09/20/23 Range/Units 18:15 18:15 18:15 WBC 13.0 H (3.8-10.6) k/uL RBC 4.34 (4.30-5.90) m/uL Hgb 10.4 L (13.0-17.5) gm/dL Hct 35.2 L (39.0-53.0) % MCV 81.0 (80.0-100.0) fL MCH 23.9 L (25.0-35.0) pg MCHC 29.4 L (31.0-37.0) g/dL RDW 16.6 H (11.5-15.5) % Plt Count 534 H (150-450) k/uL MPV 7.1 Neutrophils % 87 % Lymphocytes % 6 % Monocytes % 5 % Eosinophils % 1 % Basophils % 0 % Neutrophils # 11.2 H (1.3-7.7) k/uL Lymphocytes # 0.8 L (1.0-4.8) k/uL Monocytes # 0.6 (0-1.0) k/uL Eosinophils # 0.1 (0-0.7) k/uL Basophils # 0.1 (0-0.2) k/uL Hypochromasia Marked Anisocytosis Slight PT 93.7 H (10.0-12.5) sec INR 9.4 H* (<1.2) APTT 58.9 H (22.0-30.0) sec VBG pH (7.31-7.41) VBG pCO2 (37-51) mmHg VBG HCO3 (24-28) mmol/L Sodium 132 L (137-145) mmol/L Potassium 4.3 (3.5-5.1) mmol/L Chloride 95 L (98-107) mmol/L Carbon Dioxide 32 H (22-30) mmol/L Anion Gap 5 mmol/L BUN 28 H (9-20) mg/dL Creatinine 0.79 (0.66-1.25) mg/dL Est GFR (CKD-EPI)AfAm >90 (>60 ml/min/1.73 sqM) Est GFR (CKD-EPI)NonAf 82 (>60 ml/min/1.73 sqM) Glucose 143 H (74-99) mg/dL Plasma Lactic Acid Isacc (0.7-2.0) mmol/L Calcium 7.9 L (8.4-10.2) mg/dL Magnesium 2.0 (1.6-2.3) mg/dL Total Bilirubin 0.3 (0.2-1.3) mg/dL AST 23 (17-59) U/L ALT 19 (4-49) U/L Alkaline Phosphatase 159 H (38-126) U/L Troponin I (0.000-0.034) ng/mL NT-Pro-B Natriuret Pep 2280 pg/mL Total Protein 5.8 L (6.3-8.2) g/dL Albumin 2.8 L (3.5-5.0) g/dL 09/20/23 09/20/23 09/20/23 Range/Units 18:15 18:15 18:54 WBC (3.8-10.6) k/uL RBC (4.30-5.90) m/uL Hgb (13.0-17.5) gm/dL Hct (39.0-53.0) % MCV (80.0-100.0) fL MCH (25.0-35.0) pg MCHC (31.0-37.0) g/dL RDW (11.5-15.5) % Plt Count (150-450) k/uL MPV Neutrophils % % Lymphocytes % % Monocytes % % Eosinophils % % Basophils % % Neutrophils # (1.3-7.7) k/uL Lymphocytes # (1.0-4.8) k/uL Monocytes # (0-1.0) k/uL Eosinophils # (0-0.7) k/uL Basophils # (0-0.2) k/uL Hypochromasia Anisocytosis PT (10.0-12.5) sec INR (<1.2) APTT (22.0-30.0) sec VBG pH 7.49 H (7.31-7.41) VBG pCO2 41 (37-51) mmHg VBG HCO3 31 H (24-28) mmol/L Sodium (137-145) mmol/L Potassium (3.5-5.1) mmol/L Chloride (98-107) mmol/L Carbon Dioxide (22-30) mmol/L Anion Gap mmol/L BUN (9-20) mg/dL Creatinine (0.66-1.25) mg/dL Est GFR (CKD-EPI)AfAm (>60 ml/min/1.73 sqM) Est GFR (CKD-EPI)NonAf (>60 ml/min/1.73 sqM) Glucose (74-99) mg/dL Plasma Lactic Acid Isacc 1.3 (0.7-2.0) mmol/L Calcium (8.4-10.2) mg/dL Magnesium (1.6-2.3) mg/dL Total Bilirubin (0.2-1.3) mg/dL AST (17-59) U/L ALT (4-49) U/L Alkaline Phosphatase (38-126) U/L Troponin I <0.012 (0.000-0.034) ng/mL NT-Pro-B Natriuret Pep pg/mL Total Protein (6.3-8.2) g/dL Albumin (3.5-5.0) g/dL Critical Care Time Critical Care Time: Yes Total Critical Care Time: 35 Disposition Clinical Impression: COPD exacerbation, Coagulopathy, Lung mass, Pulmonary edema Disposition: ADMITTED IP TO THIS HOSP Referrals: Eugene Todd MD [Primary Care Provider] - 1-2 days Time of Disposition: 19:38
[2023-09-20 18:31] LABS: Anisocytosis Slight; Basophils # (A) 0.1 k/uL (0-0.2); Basophils % (A) 0 %; Eosinophils # (A) 0.1 k/uL (0-0.7); Eosinophils % (A) 1 %; HCT 35.2 % (39.0-53.0); HGB 10.4 gm/dL (13.0-17.5); Hypochromasia Marked; Lymphocytes # (A) 0.8 k/uL (1.0-4.8); Lymphocytes % (A) 6 %; MCH 23.9 pg (25.0-35.0); MCHC 29.4 g/dL (31.0-37.0); Mean Platelet Volume 7.1; Monocytes # (A) 0.6 k/uL (0-1.0); Monocytes % (A) 5 %; Neutrophils # (A) 11.2 k/uL (1.3-7.7); Neutrophils % (A) 87 %; Platelet Count 534 k/uL (150-450); RBC 4.34 m/uL (4.30-5.90); RDW 16.6 % (11.5-15.5)
[2023-09-20 18:49] LABS: INR 9.4 (<1.2); Partial Thromboplastin Time 58.9 sec (22.0-30.0); Prothrombin Time 93.7 sec (10.0-12.5)
--- NOTE | 2023-09-20 18:52 | XR ---
EXAMINATION TYPE: XR chest 2V DATE OF EXAM: 09/20/2023 COMPARISON: 03/27/2023 INDICATION: Difficulty breathing TECHNIQUE: Frontal and lateral views of the chest are obtained. FINDINGS: The heart size is normal. The pulmonary vasculature is normal. There is an opacification in the posterior right lung. Workup for neoplasm is recommended. Recurrent pneumonia may be considered. Small bilateral pleural effusions are present. IMPRESSION: 1. Opacification posterior right lung. Workup for mass is recommended.
[2023-09-20 18:55] LABS: Carbon Dioxide 32 mmol/L (22-30); Chloride 95 mmol/L (98-107); Glucose 143 mg/dL (74-99); Potassium 4.3 mmol/L (3.5-5.1); Sodium 132 mmol/L (137-145)
[2023-09-20 18:56] LABS: ALT 19 U/L (4-49); AST 23 U/L (17-59); African American GFR (CKD) >90 (>60 ml/min/1.73 sqM); Albumin 2.8 g/dL (3.5-5.0); Alkaline Phosphatase 159 U/L (38-126); Anion Gap 5 mmol/L; Blood Urea Nitrogen 28 mg/dL (9-20); Calcium 7.9 mg/dL (8.4-10.2); Non-African American GFR(CKD) 82 (>60 ml/min/1.73 sqM); Total Bilirubin 0.3 mg/dL (0.2-1.3); Total Protein 5.8 g/dL (6.3-8.2)
[2023-09-20 19:01] LABS: VBG PH 7.49 (7.31-7.41)
[2023-09-20 19:03] LABS: NT-Pro-B-Type Natriuretic Pept 2280 pg/mL
[2023-09-20] MEDS: FUROSEMIDE 10 MG/ML 4 ML VIAL IV STA (19:05)
[2023-09-20] MEDS: NITROGLYCERIN OINT 1 INCH/GM PACKET TOPICAL STA (19:05)
[2023-09-20] MEDS: ASPIRIN 81 MG PO STA (19:06)
[2023-09-20] MEDS: IPRATROPIUM-ALBUTEROL 3 ML NEB INHALATION STA (19:34)
[2023-09-20] MEDS ORDERED: NALOXONE 0.4 MG/ML 1 ML VIAL IVP PRN (19:39)
[2023-09-20] MEDS: IPRATROPIUM-ALBUTEROL 3 ML NEB INHALATION SCH (20:28)
[2023-09-20] MEDS: AMOXIC-POT CLAV 875-125MG 1 EACH TAB PO SCH (21:21)
[2023-09-20] MEDS: FUROSEMIDE 10 MG/ML 2 ML VIAL IV SCH (21:22)
[2023-09-20] MEDS: methylPREDNISolone SOD SUCCI 125 MG/2 ML VIAL IV SCH (23:51)
[2023-09-21] MEDS ORDERED: RX INFO: IV CONTRAST WAS GIVEN 1 EACH MISC MISCELLANE PRN (01:40)
[2023-09-21] MEDS: DILTIAZEM 125 MG in SODIUM CHLORIDE 0.9% 100 ML IV SCH (01:45)
--- NOTE | 2023-09-21 02:31 | P.CNPUL ---
History of Present Illness Consult date: 09/21/23 Requesting physician: Ras Marx Reason for consult: COPD, lung mass Chief complaint: Acute on chronic shortness of breath History of present illness: Patient is a 87-year-old white male with past medical history significant for paroxysmal atrial fibrillation chronically anticoagulated on warfarin, severe oxygen dependent COPD, thoracic aortic aneurysm, and current ongoing tobacco dependence. Patient has reportedly followed in the past with Dr. Zapata. Of note, patient was recently admitted March, with hemoptysis. He was treated for a right-sided pneumonia. CT of the chest at that time demonstrated a 5.7 x 6 cm masslike consolidation within the right lower lung superior segment. Sputum had isolated Pseudomonas aeruginosa. Follow-up chest x-ray showed slight improvement in the masslike consolidation. No bronchoscopy was done at this time. Patient returned to the emergency department yesterday evening complaining of 3 to 4 days of worsening exertional dyspnea, chest tightness, and wheezing. He does endorse a productive cough with yellow sputum production. Denies sick contacts or recent travel. Denies any fevers. Denies any chest pain. Denies any hemoptysis. His INR was elevated at 9.4. Denies any bleeding at all. He does do continue to smoke a couple cigarettes every couple days. Reportedly he cannot even walk to the bathroom without becoming severely dyspneic. He has noted increased lower extremity swelling. He is on torsemide outpatient and reportedly voids often. Chest x-ray done on admission shows a opacification of the posterior right lung. This needs to be evaluated for possible lung mass. Patient denies any prior history of cancer. Does admit a 30 pound weight loss over the last 6 to 9 months. No change in appetite. Will need to follow-up chest CT with contrast. May need bronchoscopy and airway examination. CBC on arrival: WBC count 13, hemoglobin 10.4, hematocrit 35.2, platelets 534. BMP on arrival: Sodium 132, potassium 4.3, chloride 95, serum bicarb 32, BUN 28, creatinine 0.79, glucose 143. Troponins less than 0.012. NT proBNP 2280. EKG shows atrial fibrillation with rapid ventricular rate. No obvious ischemic changes. Most recent echocardiogram from March, estimated preserved left ventricular ejection fraction of 55 to 60% along with some mild to moderate mitral regurgitation and mild aortic regurgitation. Patient is currently sitting up in bed, on 4 L/min nasal cannula, in no acute distress. SpO2 is 99%. Heart rhythm on bedside monitor still appears atrial fibrillation. Rate is currently 140 bpm. Cardiology is also consulted and is elected to place this patient on Cardizem infusion. Nurses are working on getting this medication from pharmacy. Patient denies any chest pain, lightheadedness, heart palpitations. Denies nausea. Not diaphoretic. Afebrile. Remaining vital signs are stable. Review of Systems REVIEW OF SYSTEMS: CONSTITUTIONAL: Reports 30 pound weight loss over the last 6 to 9 months. EYES: Denies change in vision. EARS, NOSE, MOUTH, THROAT: Denies headaches, denies sore throat. CARDIOVASCULAR: Denies chest pain, palpitations or syncopal episodes. Endorses increased lower extremity swelling RESPIRATORY: See HPI GASTROINTESTINAL: Denies change in appetite, abdominal pain, nausea and vomiting, or diarrhea GENITOURINARY: Denies hematuria, denies infections. MUSKULOSKELETAL: Denies pain, denies swelling. INTEGUMENTARY: Denies rash, denies eczema. NEUROLOGICAL: Denies recent memory loss, no recent seizure activity. PSYCHIATRIC: Denies anxiety, denies depression. HEMATOLOGIC/LYMPHATIC: Denies anemia, denies enlarged lymph node Past Medical History Past Medical History: Atrial Fibrillation, COPD, Respiratory Disorder Additional Past Medical History / Comment(s): Ascending thoracic aortic aneurysm measuring 4.8 cm in size, advanced COPD wears 4 liters 02 ATC, left lower lobe mass measuring 3.4 x 3.3 cm in size pt states gets full easily when eating and has constipation issues, takes [employer] MOM, has an appt with Dr Norris Recinos in July. History of Any Multi-Drug Resistant Organisms: None Reported Past Surgical History: Adenoidectomy, Hernia Repair, Tonsillectomy Additional Past Surgical History / Comment(s): ULCER REPAIR- 35 YEARS AGO, cataract bilateral Past Anesthesia/Blood Transfusion Reactions: No Reported Reaction Past Psychological History: No Psychological Hx Reported Smoking Status: Former smoker Past Alcohol Use History: Rare Past Drug Use History: None Reported - Past Family History Mother Family Medical History: Cancer Additional Family Medical History / Comment(s): from [place] (stomach) Father Family Medical History: Myocardial Infarction ([place]) Additional Family Medical History / Comment(s): passes away from aneurysm Medications and Allergies Home Medications Medication Instructions Recorded Confirmed Type Flecainide [Tambocor] 50 mg PO Q12HR 09/27/17 09/20/23 History Warfarin [Coumadin] 5 mg PO FR@2100 09/27/17 09/20/23 History Acetaminophen [Tylenol] 1,000 mg PO QID PRN 05/21/20 09/20/23 History Albuterol Sulfate [Albuterol 2 puff INHALATION RT-QID PRN 10/19/20 09/20/23 History Sulfate Hfa] Ipratropium-Albuterol Nebulize 3 ml INHALATION RT-QID 03/21/23 09/20/23 History [Duoneb 0.5 mg-3 mg/3 ml Soln] Multivitamins, Thera [Multivitamin 1 tab PO DAILY 03/21/23 09/20/23 History (formulary)] Spironolactone [Aldactone] 25 mg PO DAILY 03/21/23 09/20/23 History Magnesium Hydroxide [Milk of 2,400 mg PO ONCE PRN 09/20/23 09/20/23 History Magnesia] Torsemide [Demadex] 20 mg PO DAILY 09/20/23 09/20/23 History Warfarin [Coumadin] 2.5 mg PO [id number]@209909/20/23 09/20/23 History Allergies Allergy/AdvReac Type Severity Reaction Status Date / Time No Known Allergies Allergy Verified 09/20/23 20:20 Physical Exam Vitals: Vital Signs Temp Pulse Resp BP Pulse Ox 09/20/23 22:30 117 H 18 112/72 98 09/20/23 20:30 111 H 20 107/70 99 09/20/23 19:42 112 H 20 09/20/23 19:34 112 H 20 09/20/23 19:06 107 H 20 85/58 96 09/20/23 18:26 22 09/20/23 18:14 98.4 F 106 H 18 107/80 99 Intake and Output 09/20/23 09/20/23 09/21/23 14:59 22:59 06:59 Other: Weight 49.895 kg GENERAL EXAM: Alert, frail 87-year-old white male, comfortable in no apparent distress. HEAD: Normocephalic and atraumatic EYES: Normal reaction of pupils, equal size. NOSE: Clear with pink turbinates. THROAT: No erythema or exudates. NECK: No masses, no JVD. CHEST: No chest wall deformity. LUNGS: Equal air entry with markedly diminished lung sounds throughout. No crackles, wheezes, rhonchi. on 4 L/min nasal cannula. No conversational dyspnea or accessory muscle use.. CVS: S1 and S2 normal with no audible murmur, irregular rhythm. No extra heart sounds ABDOMEN: No hepatosplenomegaly, active bowel sounds, no guarding or rigidity. SPINE: No scoliosis or deformity SKIN: No rashes CENTRAL NERVOUS SYSTEM: No focal deficits, tone is normal in all 4 extremities. EXTREMITIES: There bilateral lower extremity pitting edema. No clubbing, or cy anosis. Peripheral pulses are intact. Results - Laboratory Findings CBC and BMP: 09/20/23 18:15 09/20/23 18:15 PT/INR, D-dimer PT 93.7 sec (10.0-12.5) H 09/20/23 18:15 INR 9.4 (<1.2) H* 09/20/23 18:15 Abnormal lab findings: Abnormal Labs 09/20/23 09/20/23 09/20/23 18:15 18:15 18:15 WBC 13.0 H Hgb 10.4 L Hct 35.2 L MCH 23.9 L MCHC 29.4 L RDW 16.6 H Plt Count 534 H Neutrophils # 11.2 H Lymphocytes # 0.8 L PT 93.7 H INR 9.4 H* APTT 58.9 H VBG pH VBG HCO3 Sodium 132 L Chloride 95 L Carbon Dioxide 32 H BUN 28 H Glucose 143 H Calcium 7.9 L Alkaline Phosphatase 159 H Total Protein 5.8 L Albumin 2.8 L 09/20/23 18:54 WBC Hgb Hct MCH MCHC RDW Plt Count Neutrophils # Lymphocytes # PT INR APTT VBG pH 7.49 H VBG HCO3 31 H Sodium Chloride Carbon Dioxide BUN Glucose Calcium Alkaline Phosphatase Total Protein Albumin - Diagnostic Findings Chest x-ray: image reviewed Assessment and Plan Assessment: Acute on chronic dyspnea, suspect acute COPD exacerbation. Chest x-ray done on admission showed opacification of the right posterior lung, neoplasm needs to be ruled out. There are also chronic bilateral pleural effusions. History of right-sided pneumonia, treated in November, 2023, chest CT at that time showed a 5.7 x 6 cm masslike opacification. Isolated organism Pseudomonas aeruginosa. Follow-up imaging showed a slight improvement in the right upper lobe opacification. No bronchoscopy or airway examination was done at this time. Unintentional weight loss, reportedly lost 30 pounds over a 6 to 9-month timeframe. History of hemoptysis History of left lower lung nodule, followed up outpatient Chronic ongoing tobacco dependence, still smokes 2 to 3 cigarettes every couple days. Severe chronic obstructive pulmonary disease, with an FEV1 37% of predicted Chronic hypoxemic respiratory failure, secondary to above, normally maintained on 4 L/min nasal cannula while at home. Acute leukocytosis Atrial fibrillation with rapid ventricular rate, cardiology has started this patient on Cardizem which is infusing at 5 mg/h. Patient has a history of chronic atrial fibrillation and is anticoagulated on Coumadin. INR was supratherapeutic at 9.4 on arrival. Patient denies any bleeding. Supratherapeutic INR, Coumadin on hold History of thoracic aortic aneurysm Bilateral lower extremity edema Plan: Patient chest x-ray findings concerning for possible malignancy. Will follow-up with CT of the chest with contrast. Patient may need follow-up bronchoscopy. Empirically cover the patient on Zosyn. Check procalcitonin level. Obtain sputum culture if possible. Continue combination of DuoNebs [id number] and IV Solu-Medrol. Add inhaled steroid. In the meantime, Coumadin is on hold. INR is being allowed to drift down. No bleeding noted. Recheck INR in the morning. Cardiology is managing patient's A-fib RVR, started the patient on Cardizem at 5 mg/h. Patient also started on Lasix 20 mg twice daily. We will continue to follow, and additional recommendations are forthcoming. I have personally seen and examined the patient, performed the documentation and the assessment and plan as written. Number of minutes spent on the visit:20 The patient is being seen in joint evaluation along with the nurse practitioner. This patient is known to have advanced COPD. I reviewed the series of CAT scans were done and the patient from December 2022, March 2023 and the most recent CAT scan of the chest that was done on 09/21/2023. It seems that the patient developed a cavitating consolidation of the right lower lobe back in March 2023. This was treated in the hospital with antibiotics. Subsequent x-rays were not done. The patient is coming in with worsening shortness of breath, coughing up copious amount of brown and purulent respiratory secretions. A CAT scan of the chest was done and again that showed diffuse emphysematous changes along with scarring and bronchiectasis. The patient has also peribronchial thickening consistent with COPD. There is a patchy area of consolidation/atelectasis in the right lower lobe and some irregular opacities in the left upper lobe and the left lower lobe associated with atelectasis. There is also compression fracture of the upper lumbar spine. My overall impression is that the patient has necrotizing pneumonia of the right lower lobe. INR was supratherapeutic at the time of admission at 9.4. White cell count at 13 with a hemoglobin of 10.4. BUN is 28 with a creatinine of 0.7 and sodium is at 132. The patient is currently on Zosyn and vancomycin was also added. The patient has had previous pseudomonal infection back in March 2023. Repeat sputum samples will be requested. proBNP level was 2280. Previous echocardiogram that was done on this patient on 03/22/2023 showed a preserved LV function. Noted the patient advanced COPD. He has significant limitation in mobility and the patient is unable to go more than 5 to 10 feet without being short of breath. He has been maintained on oxygen outpatient basis. He has chronic A-fib and maintained on anticoagulation with warfarin. In regards to his subtherapeutic and INR, the warfarin will be discontinued. Patient will be given vitamin K. Rest of the home medication will be resumed. Will be monitored. Discussed the case with the primary care physician. Discussed the case with the nurse practitioner. This evaluation was done more than 30 minutes. Time with Patient: Greater than 30
--- NOTE | 2023-09-21 03:17 | CT ---
EXAM: CT Chest Without and With Intravenous Contrast CLINICAL HISTORY: Evaluate mass like consolidation TECHNIQUE: Axial computed tomography images of the chest without and with intravenous contrast. CTDI is 4.5 mGy and DLP is 205.5 mGy-cm. This CT exam was performed using one or more of the following dose reduction techniques: automated exposure control, adjustment of the mA and/or kV according to patient size, and/or use of iterative reconstruction technique. 3D and MIP reconstructed images were created and reviewed. COMPARISON: CT chest 01/06/2023. FINDINGS: Lungs: Diffuse emphysematous changes and scarring. Peribronchial thickening with mild bronchiectasis greatest in the lower lobes. Dense focal consolidation versus atelectasis in superior segment of the right lower lobe extending to the hilum with hypodense possible fluid component. Patchy infiltrates in the right lower lobe. Redemonstrated irregular opacities in the left upper lobe and left lower lobe with associated atelectasis. Pleural space: Small right greater than left pleural effusion. No pneumothorax. Heart: Unremarkable. No cardiomegaly. No significant pericardial effusion. Coronary artery calcifications. Bones/joints: No acute fracture. Unchanged multiple mid and lower thoracic and upper lumbar spine compression fractures. Soft tissues: Unremarkable. Vasculature: Unchanged 4.5 cm AP diameter ascending thoracic aortic aneurysm. Descending aorta normal in caliber. Unchanged partially visualized proximal abdominal aortic aneurysm 3.4 cm AP diameter. No dissection. Diffuse atherosclerotic calcifications of the aorta. Lymph nodes: Unremarkable. No enlarged lymph nodes. IMPRESSION: Regular pleural effusions with associated atelectasis. Dense superior segment right lower lobe consolidation versus mass with possible fluid component, extending to the hilum. Redemonstrated opacities in the left upper lobe and left lower lobe, not significantly changed. Diffuse emphysematous changes with scarring and bronchiectasis. Unchanged ascending aortic aneurysm. Partially visualized proximal abdominal aortic aneurysm. Otherwise no change.
[2023-09-21] MEDS: PIPERACILLIN-TAZOBACTAM 3.375 GM in SODIUM CHLORIDE 0.9% 100 ML IVPB SCH (03:31)
[2023-09-21] MEDS ORDERED: ACETAMINOPHEN TAB 500 MG TAB PO PRN (07:39)
[2023-09-21] MEDS ORDERED: ALBUTEROL HFA INHALER INHALATION PRN (07:39)
[2023-09-21] MEDS: BUDESONIDE 1 MG/2 ML NEBU INHALATION SCH (08:26)
[2023-09-21] MEDS: SPIRONOLACTONE 25 MG TAB PO SCH (09:18)
[2023-09-21] MEDS: MULTIVITAMINS, THERA 1 EACH TAB PO SCH (09:18)
[2023-09-21] MEDS: IPRATROPIUM-ALBUTEROL 3 ML NEB INHALATION SCH (09:30)
[2023-09-21] MEDS: FLECAINIDE 50 MG TAB PO SCH (09:56)
[2023-09-21] MEDS ORDERED: VANCOMYCIN IV PER PHARMACY 1 EACH MISC MISCELLANE PRN (11:57)
--- NOTE | 2023-09-21 12:50 | P.CRDCN ---
History of Present Illness Consult date: 09/21/23 Reason for Consult (text): Pulmonary edema History of present illness: History of present illness: This is an 87-year-old male patient of Dr. Cardenas with past medical history of hypertension, permanent atrial fibrillation on Coumadin, aortic aneurysm, diastolic heart failure, chronic lower extremity edema, COPD, chronic hypoxic respiratory failure on home O2, mitral regurgitation. We have been asked to evaluate the patient for pulmonary edema. Patient complains of shortness of breath for 2 to 3 days along with cough and sputum production. No fever or chills. No lower extremity edema change. He always has some. He states he has been taking his medications but seems to be confused about some of them. Patient has been started on IV Lasix 20 mg every 12 hours along with IV Solu- Medrol, IV antibiotics, and nebulizer treatments. Patient is seen today in the emergency center waiting for bed on the cardiac stepdown unit. EKG #1 atrial fibrillation with ventricular rate of 113 bpm, #2 atrial fibrillation with ventricular rate of 112 bpm Chest x-ray: Opacification posterior right lung. Workup for mass is recommended. CT of the chest reveals pleural effusions with associated atelectasis. Dense superior segment right lower lobe consolidation versus mass with possible fluid component. Redemonstration of L pace that he is in the left upper lobe and left lower lobe not changed. Diffuse emphysematous changes. Unchanged ascending aortic aneurysm. Laboratory studies: WBC 13, hemoglobin 10.4, platelet count 534. INR 9.4. Sodium 132, potassium 4.3, chloride 95, CO2 32, BUN 28 creatinine 0.79. Glucose 143. Alkaline phosphatase 159. Troponin negative x 1. proBNP 2280. Procalcitonin 0.11. Home cardiac medications: Flecainide 50 mg every 12 hours, spironolactone 25 mg daily, Demadex 20 mg daily, Coumadin 2.5 mg every day except for Monday is 5 mg. Echocardiogram performed 03/22/2023 reveals EF of 55 to 60%. Mild to moderate mitral regurgitation. Mild aortic regurgitation. Review Of Systems: At the time of my exam: CONSTITUTIONAL: Denies fever or chills. HEENT: Denies blurred vision, vision changes, or eye pain. Denies hemoptysis CARDIOVASCULAR: Denies chest pain. Denies orthopnea. Denies PND. Denies p alpitations RESPIRATORY: Reports shortness of breath. Reports cough with sputum production. GASTROINTESTINAL: Denies abdominal pain. Denies nausea or vomiting. HEMATOLOGIC: Denies bleeding disorders. GENITOURINARY: Denies any blood in urine. SKIN: Denies pruitis. Denies rash. Physical examination: Gen: This is an 87-year-old male in no acute distress VS: reviewed, blood pressure 93/66, heart rate 74, pulse ox 96% on 4 L nasal cannula. HEENT: Head is atraumatic, normocephalic. Pupils equal, round. Sclerae is anicteric. NECK: Supple. No JVD. LUNGS: Diminished breath sounds bilaterally. No intercostal retractions. HEART: Regular rate and rhythm. No murmur. ABDOMEN: Soft No tenderness. EXTREMITIES: Bilateral 2+ pedal edema. No calf tenderness. NEUROLOGICAL: Patient is awake, alert and oriented x3. Assessment: Acute on chronic hypoxic respiratory failure secondary to COPD, acute on chronic diastolic heart failure, pleural effusions Permanent atrial fibrillation Chronic diastolic heart failure Thoracic aortic aneurysm Lung nodule Hypercoagulopathy secondary to Coumadin Plan: Resume patient's home cardiac medications Coumadin on hold, dosing managed by pharmacy Continue IV Lasix 20 mg every 12 hours Monitor HELIO, daily weights, electrolytes and renal function Discontinue flecainide. Discontinue Cardizem drip No need to repeat echocardiogram Further recommendations to follow based upon clinical course Thank you kindly for this consultation. Nurse practitioner note has been reviewed, I agree with documented findings and plan of care. Patient was seen and examined. Past Medical History Past Medical History: Atrial Fibrillation, COPD, Respiratory Disorder Additional Past Medical History / Comment(s): Ascending thoracic aortic aneurysm measuring 4.8 cm in size, advanced COPD wears 4 liters 02 ATC, left lower lobe mass measuring 3.4 x 3.3 cm in size pt states gets full easily when eating and has constipation issues, takes [employer], has an appt with Dr Norris Recinos in July. History of Any Multi-Drug Resistant Organisms: None Reported Past Surgical History: Adenoidectomy, Hernia Repair, Tonsillectomy Additional Past Surgical History / Comment(s): ULCER REPAIR- 35 YEARS AGO, cataract bilateral Past Anesthesia/Blood Transfusion Reactions: No Reported Reaction Past Psychological History: No Psychological Hx Reported Smoking Status: Former smoker Past Alcohol Use History: Rare Past Drug Use History: None Reported - Past Family History Mother Family Medical History: Cancer Additional Family Medical History / Comment(s): from [place] (stomach) Father Family Medical History: Myocardial Infarction ([place]) Additional Family Medical History / Comment(s): passes away from aneurysm Medications and Allergies Home Medications Medication Instructions Recorded Confirmed Type Flecainide [Tambocor] 50 mg PO Q12HR 09/27/17 09/20/23 History Warfarin [Coumadin] 5 mg PO FR@2100 09/27/17 09/20/23 History Acetaminophen [Tylenol] 1,000 mg PO QID PRN 05/21/20 09/20/23 History Albuterol Sulfate [Albuterol 2 puff INHALATION RT-QID PRN 10/19/20 09/20/23 History Sulfate Hfa] Ipratropium-Albuterol Nebulize 3 ml INHALATION RT-QID 03/21/23 09/20/23 History [Duoneb 0.5 mg-3 mg/3 ml Soln] Multivitamins, Thera [Multivitamin 1 tab PO DAILY 03/21/23 09/20/23 History (formulary)] Spironolactone [Aldactone] 25 mg PO DAILY 03/21/23 09/20/23 History Magnesium Hydroxide [Milk of 2,400 mg PO ONCE PRN 09/20/23 09/20/23 History Magnesia] Torsemide [Demadex] 20 mg PO DAILY 09/20/23 09/20/23 History Warfarin [Coumadin] 2.5 mg PO SUMOTUWETHSA@209909/20/23 09/20/23 History Allergies Allergy/AdvReac Type Severity Reaction Status Date / Time No Known Allergies Allergy Verified 09/20/23 20:20 Physical Exam Vitals: Vital Signs Temp Pulse Pulse Resp BP BP Pulse Ox 09/21/23 12:28 104 H 09/21/23 08:54 97.6 F 74 16 93/66 96 09/21/23 08:41 85 09/21/23 08:26 92 96 09/21/23 06:47 96 20 101/69 94 L 09/21/23 06:00 93 18 100/77 98 09/21/23 04:48 85 16 114/76 99 09/21/23 02:00 113 H 18 119/84 99 09/21/23 01:30 133 H 18 108/87 99 09/20/23 22:30 117 H 18 112/72 98 09/20/23 20:30 111 H 20 107/70 99 09/20/23 19:42 112 H 20 09/20/23 19:34 112 H 20 09/20/23 19:06 107 H 20 85/58 96 09/20/23 18:26 22 09/20/23 18:14 98.4 F 106 H 18 107/80 99 Intake and Output 09/20/23 09/21/23 09/21/23 22:59 06:59 14:59 Intake Total 37.75 Balance 37.75 Intake: Intake, IV Titration 37.75 Amount Diltiazem 125 mg In 37.75 Sodium Chloride 0.9% 100 ml @ 5 MG/HR 5 mls/hr IV .Q24H [facility] Rx#:[id number] Other: Weight 49.895 kg Results 09/20/23 18:15 09/20/23 18:15 Cardiac Enzymes 09/20/23 09/20/23 Range/Units 18:15 18:15 AST 23 (17-59) U/L Troponin I <0.012 (0.000-0.034) ng/mL Coagulation 09/20/23 Range/Units 18:15 PT 93.7 H (10.0-12.5) sec APTT 58.9 H (22.0-30.0) sec CBC 09/20/23 Range/Units 18:15 WBC 13.0 H (3.8-10.6) k/uL RBC 4.34 (4.30-5.90) m/uL Hgb 10.4 L (13.0-17.5) gm/dL Hct 35.2 L (39.0-53.0) % Plt Count 534 H (150-450) k/uL Comprehensive Metabolic Panel 09/20/23 Range/Units 18:15 Sodium 132 L (137-145) mmol/L Potassium 4.3 (3.5-5.1) mmol/L Chloride 95 L (98-107) mmol/L Carbon Dioxide 32 H (22-30) mmol/L BUN 28 H (9-20) mg/dL Creatinine 0.79 (0.66-1.25) mg/dL Glucose 143 H (74-99) mg/dL Calcium 7.9 L (8.4-10.2) mg/dL AST 23 (17-59) U/L ALT 19 (4-49) U/L Alkaline Phosphatase 159 H (38-126) U/L Total Protein 5.8 L (6.3-8.2) g/dL Albumin 2.8 L (3.5-5.0) g/dL Current Medications Generic Name Dose Route Start Last Admin Trade Name Freq PRN Reason Stop Dose Admin Acetaminophen 1,000 mg 09/21/23 07:39 Acetaminophen Tab 500 Mg Tab PO QID PRN Pain or Fever > 100.5 Albuterol Sulfate 2 puff 09/21/23 07:39 Albuterol Hfa Inhaler INHALATION RT-QID PRN Shortness Of Breath Albuterol/Ipratropium 3 ml 09/20/23 19:39 Ipratropium-Albuterol 3 Ml Neb INHALATION RT-Q2H PRN Shortness Of Breath Or Wheezing Albuterol/Ipratropium 3 ml 09/21/23 08:00 09/21/23 12:28 Ipratropium-Albuterol 3 Ml Neb INHALATION 3 ml RT-QID AGUSTÍN Administration Budesonide 1 mg 09/21/23 08:00 09/21/23 08:26 Budesonide 1 Mg/2 Ml Nebu INHALATION 1 mg RT-BID AGUSTÍN Administration Furosemide 20 mg 09/20/23 21:00 09/21/23 09:18 Furosemide 10 Mg/Ml 2 Ml Vial IV 20 mg Q12HR AGUSTÍN Administration Piperacillin Sod/Tazobactam 100 mls @ 25 mls/hr 09/21/23 04:00 09/21/23 03:31 Sod 3.375 gm/ Sodium Chloride IVPB 25 mls/hr Q8H AGUSTÍN Administration Protocol Vancomycin HCl 750 mg/ Sodium 250 mls @ 125 mls/hr 09/21/23 13:00 Chloride IVPB Q24H AGUSTÍN Methylprednisolone Sodium Succinate 60 mg 09/21/23 00:00 09/21/23 06:50 Methylprednisolone Sod Succi 125 Mg/2 Ml Vial IV 60 mg Q6HR AGUSTÍN Administration Miscellaneous Information 1 each 09/21/23 01:40 Rx Info: Iv Contrast Was Given 1 Each Misc MISCELLANE 09/23/23 01:40 DAILY PRN Per Protocol Miscellaneous Information 0 each 09/21/23 07:42 Warfarin Per Pharmacy MISCELLANE DIRECTED PRN PER PROTOCOL Miscellaneous Information 1 each 09/21/23 11:57 Vancomycin Iv Per Pharmacy 1 Each [facility] [place] DIRECTED PRN Per Protocol Protocol Multivitamins 1 each 09/21/23 09:00 09/21/23 09:18 Multivitamins, Thera 1 Each Tab PO 1 each DAILY AGUSTÍN Administration Naloxone HCl 0.2 mg 09/20/23 19:39 Naloxone 0.4 Mg/Ml 1 Ml Vial IVP Q2M PRN Opioid Reversal Spironolactone 25 mg 09/21/23 09:00 09/21/23 09:18 Spironolactone 25 Mg Tab PO 25 mg DAILY AGUSTÍN Administration Intake and Output 09/20/23 09/21/23 09/21/23 22:59 06:59 14:59 Intake Total 37.75 Balance 37.75 Intake: Intake, IV Titration 37.75 Amount Diltiazem 125 mg In 37.75 Sodium Chloride 0.9% 100 ml @ 5 MG/HR 5 mls/hr IV .Q24H AGUSTÍN Rx#:[id number] Other: Weight 49.895 kg 09/20/23 18:15 09/20/23 18:15
[2023-09-21 13:27] LABS: Prothrombin Time 119.4 sec (10.0-12.5)
[2023-09-21 13:36] LABS: INR >10.0 (<1.2)
[2023-09-21] MEDS: VANCOMYCIN 750 MG in SODIUM CHLORIDE 0.9% 250 ML IVPB SCH (13:56)
[2023-09-21] MEDS: PHYTONADIONE 5 MG in SODIUM CHLORIDE 0.9% 50 ML IVPB STA (15:16)
[2023-09-21] MEDS: WARFARIN 0.5 MG TAB PO ONE (18:23)
--- NOTE | 2023-09-21 18:54 | P.HPIM ---
History of Present Illness H&P Date: 09/21/23 Chief Complaint: Has been sick for the last 2 weeks HISTORY OF PRESENT ILLNESS: This is an 87-year-old male with a previous medical history significant for 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 failure on oxygen at home due to severe COPD with FEV1 of 37% of predicted, chronic atrial fibrillation, thoracic aortic aneurysm, abdominal aortic aneurysm, chronic diastolic heart failure, chronic pulmonary hypertension, patient was recently hospitalized at [facility] back in March 2023 after he was admitted for what appears to be a right lower lobe Pseudomonas pneumonia involving the superior segment of the right lower lobe and it showed like a masslike consolidation back on the CT scan and he was treated and his x- ray showed improvement but never had a bronchoscopy, patient is following regularly with Dr. Zapata as an outpatient, patient stated that he has been feeling sick for the last 2 to 4 weeks and when I asked him why he did not show up to the ER or he did not come to the hospital he stated that his daughter was very sick in the hospital and she has been hospitalized for quite some times, she was supposed to be discharged to subacute rehabilitation because she was sick with some sort of pneumonia, and his was split between his daughter and himself, yesterday patient could not breathe anymore, he has been having fever chills coughing yellow-green phlegm production, so patient presented to the emergency department at [facility] with acute shortness breath associated with increased coughing of yellowish and green sputum has been having increased shortness breath over the last 3 days, he was complain of some fever and chills, he also was complaining of increased fatigue tiredness and weight loss, patient was seen and evaluated in emergency room and he was found to have leukocytosis, a 13,000, he also found to have coagulopathy due to his INR being elevated in the range of 9.7 patient had a chest x-ray that did show evidence of right lower lobe pneumonia, bilateral pleural effusion as well as cardiomegaly, patient initially was started on IV Lasix 20 mg IV push every 12 hours, patient has been requiring quite a bit of oxygen, he was seen in consultation by cardiology who recommended to continue current treatment plan, pulmonary medicine saw the patient, underwent CT scan of the chest that showed evidence of superior segment of the right lower lobe consolidative mass rule out malignancy, possibly cavitating pneumonia, he was started on vancomycin as well as Zosyn, sputum culture will be obtained, blood culture continue oxygen support, continue IV steroid in the form of Solu-Medrol, continue nebulized treatment, patient will be admitted to a telemetry unit, will continue to follow-up with the patient very closely. REVIEW OF SYSTEMS: Constitutional: positive for fever, positive for chills, no night sweats. Significant weight change. Positive for weakness, fatigue or lethargy. No daytime sleepiness. HEENT: No headache. No blurred vision or double vision, no loss of vision. No loss of Hearing, no ringing in the ears, no dizziness. No nasal drainage or congestion. No epistaxis. No sore throat. Lungs: positive for shortness of breath, positive for cough,yellow and green sputum production , positive for wheezing. Reports dyspnea with activity. Cardiovascular: No chest pain, positive for lower extremity edema. positive for palpitations. No paroxysmal nocturnal dyspnea. No orthopnea. No lightheadedness or dizziness. No syncopal episodes. Abdominal: Reports abdominal pain. positive for nausea, no vomiting. No diarrhea. No constipation. No bloody or tarry stools reports loss of appetite. Genitourinary: No dysuria, increased frequency, urgency. No urinary retention. Musculoskeletal: No myalgias. positive for muscle weakness, positive for gait dysfunction, no frequent falls. No back pain. No neck pain. Integumentary: No wounds, no lesions. No rash or pruritus. No unusual bruising. No change in hair or nails. Neurologic: No aphasia. No facial droop. No change in mentation. No head injury. No headache. No paralysis. No paresthesia. Psychiatric: No depression. No anxiety. No mood swings. Endocrine: No abnormal blood sugars. No weight change. PAST MEDICAL HISTORY: chronic hypoxemic respiratory failure due to COPD. Severe pulmonary hypertension. Thoracic aortic aneurysm. Paroxysmal atrial fibrillation Abdominal aortic aneurysm Osteoarthritis Chronic diastolic heart failure Severe COPD with FEV1 of 37% of predicted. PAST SURGICAL HISTORY: peptic ulcer surgery in 1970 Right inguinal hernia repair 2009 Bilateral cataract surgery 2007 and 2008 Colonoscopy 2015 Skin biopsy for bullous pemphigoid. SOCIAL HISTORY: patient used to smoke about a pack a day he smoked for many years, and quit more than 20 years ago, he denies any alcohol ingestion, he lives with his he does have a walker from ablation, he does have oxygen at home. FAMILY HISTORY: father at age 70 due to ruptured thoracic aortic aneurysm mother at the age of 75 from cancer of unknown origin patient had a brother who at age of 55 from brain cancer with metastatic disease, patient had one sister who at age 75 from breast cancer patient has 2 sons both healthy, and 2 daughters no major medical problems. PHYSICAL EXAMINATION: General: 87-year-old male laying down in bed in minimal respiratory distress. HEENT: Head is atraumatic, normocephalic, pupils were equal round reactive to light and recommendation, extraocular muscle movement were intact, sclera nonicteric, conjunctivae were pale, mucous membranes of the mouth are somewhat dry. Neck: Supple, no JVP, normal carotid upstroke bilaterally, no lymphadenopathy. Chest: Decreased breath sounds at the bases, few rhonchi, minimal expiratory whe ezes, no chest wall tenderness, no intercostal retractions. Heart: First heart sound is normal, second heart sound is normal irregularly irregular there is JULI 2/6 located at the left sternal border Abdomen: Soft, nontender, nondistended, positive bowel sounds. Extremities: There is +2 edema no calf tenderness DP +2 bilaterally. Neurologic examination: Patient is awake alert and oriented X 3, cranial nerves II-12 appear grossly intact, muscle power were 4 out of 5 in upper extremities and 3 out of 5 in bilateral lower extremities, deep tendon reflexes normal bilaterally. ASSESSMENT AND PLAN: 1. acute on chronic hypoxemic respiratory failure due to right lower lobe cavitating pneumonia and possible mass. Continue patient on Solu-Medrol 60 mg IV push every 6 hours, DuoNeb 3 mL nebulization 4 times every day, continue patient on vancomycin pharmacy to dose its peak and trough, continue Zosyn 3.375 g IV piggyback every 8 hours, sputum culture, blood culture, mycoplasma IgG and IgM, urine Legionella antigen, patient may need to have a bronchoscopy if the patient is not getting better. 2. Chronic diastolic heart failure with severe pulmonary hypertension. Patient was started on Lasix 20 mg IV push every 12 hours, he was seen by cardiology, recommended current treatment plan, continue spironolactone 25 mg orally once every day. 3. Chronic atrial fibrillation with rapid ventricular response. Discontinue Cardizem drip as well as flecainide, continue to monitor INR currently is supratherapeutic. 4. Leukocytosis likely related to right lower lobe cavitating pneumonia in the superior segment. Continue IV antibiotic, continue to monitor the patient CBC over the next 24 hours. 5. Coagulopathy due to Coumadin use and sepsis. Hold Coumadin for tonight repeat tomorrow morning. Patient did receive vitamin K 5 mg IV piggyback x 1. 6. Thoracic aortic aneurysm. Has been under the care of cardiology CT angiography is up-to-date. Has been stable at 4.5 cm. 7. Abdominal aortic and nursing. Stable. 3.8 cm 8. Bullous pemphigoid. Is stable. 9. DVT prophylaxis. Patient was taken off Coumadin due to coagulopathy. Repeat INR tomorrow morning. 10. GI prophylaxis. Continue patient on Protonix 40 mg orally once every day. 11. Admit to inpatient. Estimate a length of stay 2 midnights. 12. Full code. 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 History of Any Multi-Drug Resistant Organisms: None Reported Past Surgical History: Adenoidectomy, Hernia Repair, Tonsillectomy Additional Past Surgical History / Comment(s): ULCER REPAIR- 35 YEARS AGO, cataract bilateral Past Anesthesia/Blood Transfusion Reactions: No Reported Reaction Past Psychological History: No Psychological Hx Reported Smoking Status: Former smoker Past Alcohol Use History: Rare Past Drug Use History: None Reported - Past Family History Mother Family Medical History: Cancer Additional Family Medical History / Comment(s): from [place] (stomach) Father Family Medical History: Myocardial Infarction ([place]) Additional Family Medical History / Comment(s): passes away from aneurysm Medications and Allergies Home Medications Medication Instructions Recorded Confirmed Type Flecainide [Tambocor] 50 mg PO Q12HR 09/27/17 09/20/23 History Warfarin [Coumadin] 5 mg PO FR@2100 09/27/17 09/20/23 History Acetaminophen [Tylenol] 1,000 mg PO QID PRN 05/21/20 09/20/23 History Albuterol Sulfate [Albuterol 2 puff INHALATION RT-QID PRN 10/19/20 09/20/23 Hi story Sulfate Hfa] Ipratropium-Albuterol Nebulize 3 ml INHALATION RT-QID 03/21/23 09/20/23 History [Duoneb 0.5 mg-3 mg/3 ml Soln] Multivitamins, Thera [Multivitamin 1 tab PO DAILY 03/21/23 09/20/23 History (formulary)] Spironolactone [Aldactone] 25 mg PO DAILY 03/21/23 09/20/23 History Magnesium Hydroxide [Milk of 2,400 mg PO ONCE PRN 09/20/23 09/20/23 History Magnesia] Torsemide [Demadex] 20 mg PO DAILY 09/20/23 09/20/23 History Warfarin [Coumadin] 2.5 mg PO SUMOTUWETHSA@2100 09/20/23 09/20/23 History Allergies Allergy/AdvReac Type Severity Reaction Status Date / Time No Known Allergies Allergy Verified 09/20/23 20:20 Physical Exam Vitals: Vital Signs Temp Pulse Pulse Resp BP BP Pulse Ox 09/21/23 12:41 102 H 09/21/23 12:30 97.7 F 104 H 16 108/71 97 09/21/23 12:28 104 H 09/21/23 08:54 97.6 F 74 16 93/66 96 09/21/23 08:41 85 09/21/23 08:26 92 96 09/21/23 06:47 96 20 101/69 94 L 09/21/23 06:00 93 18 100/77 98 09/21/23 04:48 85 16 114/76 99 09/21/23 02:00 113 H 18 119/84 99 09/21/23 01:30 133 H 18 108/87 99 09/20/23 22:30 117 H 18 112/72 98 09/20/23 20:30 111 H 20 107/70 99 09/20/23 19:42 112 H 20 09/20/23 19:34 112 H 20 09/20/23 19:06 107 H 20 85/58 96 09/20/23 18:26 22 09/20/23 18:14 98.4 F 106 H 18 107/80 99 Intake and Output 09/20/23 09/21/23 09/21/23 22:59 06:59 14:59 Intake Total 37.75 Output Total 600 Balance -562.25 Intake: Intake, IV Titration 37.75 Amount Diltiazem 125 mg In 37.75 Sodium Chloride 0.9% 100 ml @ 5 MG/HR 5 mls/hr IV .Q24H [facility] Rx#:[id number] Output: Urine 600 Other: Weight 49.895 kg Results CBC & Chem 7: 09/20/23 18:15 09/20/23 18:15 Labs: Abnormal Lab Results - Last 24 Hours (Table) 09/20/23 09/20/23 09/20/23 Range/Units 18:15 18:15 18:15 WBC 13.0 H (3.8-10.6) k/uL Hgb 10.4 L (13.0-17.5) gm/dL Hct 35.2 L (39.0-53.0) % MCH 23.9 L (25.0-35.0) pg MCHC 29.4 L (31.0-37.0) g/dL RDW 16.6 H (11.5-15.5) % Plt Count 534 H (150-450) k/uL Neutrophils # 11.2 H (1.3-7.7) k/uL Lymphocytes # 0.8 L (1.0-4.8) k/uL PT 93.7 H (10.0-12.5) sec INR 9.4 H* (<1.2) APTT 58.9 H (22.0-30.0) sec VBG pH (7.31-7.41) VBG HCO3 (24-28) mmol/L Sodium 132 L (137-145) mmol/L Chloride 95 L (98-107) mmol/L Carbon Dioxide 32 H (22-30) mmol/L BUN 28 H (9-20) mg/dL Glucose 143 H (74-99) mg/dL Calcium 7.9 L (8.4-10.2) mg/dL Alkaline Phosphatase 159 H (38-126) U/L Total Protein 5.8 L (6.3-8.2) g/dL Albumin 2.8 L (3.5-5.0) g/dL Procalcitonin (0.02-0.09) ng/mL 09/20/23 09/20/23 09/21/23 Range/Units 18:15 18:54 12:11 WBC (3.8-10.6) k/uL Hgb (13.0-17.5) gm/dL Hct (39.0-53.0) % MCH (25.0-35.0) pg MCHC (31.0-37.0) g/dL RDW (11.5-15.5) % Plt Count (150-450) k/uL Neutrophils # (1.3-7.7) k/uL Lymphocytes # (1.0-4.8) k/uL PT 119.4 H (10.0-12.5) sec INR >10.0 H* (<1.2) APTT (22.0-30.0) sec VBG pH 7.49 H (7.31-7.41) VBG HCO3 31 H (24-28) mmol/L Sodium (137-145) mmol/L Chloride (98-107) mmol/L Carbon Dioxide (22-30) mmol/L BUN (9-20) mg/dL Glucose (74-99) mg/dL Calcium (8.4-10.2) mg/dL Alkaline Phosphatase (38-126) U/L Total Protein (6.3-8.2) g/dL Albumin (3.5-5.0) g/dL Procalcitonin 0.11 H (0.02-0.09) ng/mL
[2023-09-21] MEDS ORDERED: WARFARIN 5 MG TAB PO SCH (21:00)
[2023-09-22] MEDS: IPRATROPIUM-ALBUTEROL 3 ML NEB INHALATION PRN (02:48)
[2023-09-22] MEDS: DILTIAZEM ORAL 30 MG TAB PO SCH (08:47)
[2023-09-22] MEDS: METOPROLOL SUCCINATE (ER) 25 MG TAB.ER.24H PO SCH (08:47)
--- NOTE | 2023-09-22 09:40 | P.PN ---
Subjective Progress Note Date: 09/22/23 Reason for Consult (text): Pulmonary edema History of present illness: History of present illness: This is an 87-year-old male patient of Dr. Cardenas with past medical history of hypertension, permanent atrial fibrillation on Coumadin, aortic aneurysm, diastolic heart failure, chronic lower extremity edema, COPD, chronic hypoxic respiratory failure on home O2, mitral regurgitation. We have been asked to evaluate the patient for pulmonary edema. Patient complains of shortness of breath for 2 to 3 days along with cough and sputum production. No fever or chills. No lower extremity edema change. He always has some. He states he has been taking his medications but seems to be confused about some of them. Patient has been started on IV Lasix 20 mg every 12 hours along with IV Solu- Medrol, IV antibiotics, and nebulizer treatments. Patient is seen today in the emergency center waiting for bed on the cardiac stepdown unit. EKG #1 atrial fibrillation with ventricular rate of 113 bpm, #2 atrial fibrillation with ventricular rate of 112 bpm Chest x-ray: Opacification posterior right lung. Workup for mass is recommended. CT of the chest reveals pleural effusions with associated atelectasis. Dense superior segment right lower lobe consolidation versus mass with possible fluid component. Redemonstration of L pace that he is in the left upper lobe and left lower lobe not changed. Diffuse emphysematous changes. Unchanged ascending aortic aneurysm. Laboratory studies: WBC 13, hemoglobin 10.4, platelet count 534. INR 9.4. Sodium 132, potassium 4.3, chloride 95, CO2 32, BUN 28 creatinine 0.79. Glucose 143. Alkaline phosphatase 159. Troponin negative x 1. proBNP 2280. Procalcitonin 0.11. Home cardiac medications: Flecainide 50 mg every 12 hours, spironolactone 25 mg daily, Demadex 20 mg daily, Coumadin 2.5 mg every day except for Monday is 5 mg. Echocardiogram performed 03/22/2023 reveals EF of 55 to 60%. Mild to moderate mitral regurgitation. Mild aortic regurgitation. 09/21 Patient is seen today in the emergency center. Blood pressure 121/102, heart rate 138, pulse ox 96% on 4 L nasal cannula. Patient has been maintained on IV Lasix 20 mg every 12 hours. Telemetry is atrial flutter with rate in the 130s a nd 140s. Patient is not on any rate control medications. Patient is on heparin drip. Yesterday, patient received 1 dose of vitamin K 5 mg for INR of 10. Blood work for this morning is not available at the time of this dictation. Discussed with patient option of starting him on Eliquis versus returning to Coumadin. He is willing to do this. We will send a prescription through to his pharmacy to check coverage. Physical examination: Gen: This is an 87-year-old male in no acute distress VS: reviewed HEENT: Head is atraumatic, normocephalic. Pupils equal, round. Sclerae is anicteric. NECK: Supple. No JVD. LUNGS: Diminished breath sounds bilaterally. No intercostal retractions. HEART: Irregular rate and rhythm. No murmur. ABDOMEN: Soft No tenderness. EXTREMITIES: Bilateral 2+ pedal edema. No calf tenderness. NEUROLOGICAL: Patient is awake, alert and oriented x3. Assessment: Acute on chronic hypoxic respiratory failure secondary to COPD, acute on chronic diastolic heart failure, pleural effusions Permanent atrial fibrillation Atrial flutter with RVR Chronic diastolic heart failure Thoracic aortic aneurysm Lung nodule Hypercoagulopathy secondary to Coumadin status post vitamin K 09/20 Plan: Continue patient's home cardiac medications Coumadin on hold, dosing managed by pharmacy We will send prescription through for Eliquis 2.5 mg twice daily to his pharmacy to check coverage Continue IV Lasix 20 mg every 12 hours Monitor HELIO, daily weights, electrolytes and renal function Continue IV heparin Start patient on Cardizem oral 30 mg 3 times daily and Toprol XL 25 mg daily No need to repeat echocardiogram Further recommendations to follow based upon clinical course Nurse practitioner note has been reviewed, I agree with documented findings and plan of care. Patient was seen and examined. Objective - Vital Signs Vital signs: Vital Signs Temp 97.6 F 09/21/23 16:45 Pulse 91 09/22/23 06:00 Resp 24 09/22/23 06:00 BP 150/96 09/22/23 06:00 Pulse Ox 96 09/22/23 06:00 FiO2 Intake & Output 09/21/23 09/22/23 09/22/23 18:59 06:59 18:59 Intake Total 37.75 Output Total 600 Balance -562.25 Weight 49.895 kg Intake: Intake, IV Titration 37.75 Amount Diltiazem 125 mg In 37.75 Sodium Chloride 0.9% 100 ml @ 5 MG/HR 5 mls/hr IV .Q24H [facility] Rx#:[id number] Output: Urine 600 - Labs CBC & Chem 7: 09/20/23 18:15 09/20/23 18:15 Labs: Abnormal Lab Results - Last 24 Hours (Table) 09/20/23 09/21/23 Range/Units 18:15 12:11 PT 119.4 H (10.0-12.5) sec INR >10.0 H* (<1.2) Procalcitonin 0.11 H (0.02-0.09) ng/mL Microbiology - Last 24 Hours (Table) 09/20/23 18:15 Blood Culture - Preliminary Blood
[2023-09-22 11:20] LABS: Anisocytosis Slight; Basophils % (A) 0 %; Eosinophils % (A) 0 %; HGB 10.7 gm/dL (13.0-17.5); Hypochromasia Marked; Lymphocytes # (A) 0.3 k/uL (1.0-4.8); Lymphocytes % (A) 2 %; MCH 23.5 pg (25.0-35.0); MCHC 28.9 g/dL (31.0-37.0); MCV 81.6 fL (80.0-100.0); Mean Platelet Volume 7.7; Monocytes # (A) 0.5 k/uL (0-1.0); Monocytes % (A) 3 %; Neutrophils # (A) 16.6 k/uL (1.3-7.7); Neutrophils % (A) 95 %; Platelet Count 847 k/uL (150-450); RBC 4.54 m/uL (4.30-5.90); RDW 16.6 % (11.5-15.5); WBC 17.4 k/uL (3.8-10.6)
[2023-09-22 11:44] LABS: ALT 22 U/L (4-49); AST 31 U/L (17-59); African American GFR (CKD) >90 (>60 ml/min/1.73 sqM); Alkaline Phosphatase 158 U/L (38-126); Anion Gap 6 mmol/L; Blood Urea Nitrogen 30 mg/dL (9-20); Calcium 8.4 mg/dL (8.4-10.2); Carbon Dioxide 34 mmol/L (22-30); Chloride 94 mmol/L (98-107); Glucose 145 mg/dL (74-99); Non-African American GFR(CKD) 79 (>60 ml/min/1.73 sqM); Potassium 4.2 mmol/L (3.5-5.1); Sodium 134 mmol/L (137-145); Total Bilirubin 0.3 mg/dL (0.2-1.3); Total Protein 6.3 g/dL (6.3-8.2)
[2023-09-22 11:52] LABS: INR 1.5 (<1.2); Prothrombin Time 15.6 sec (10.0-12.5)
--- NOTE | 2023-09-22 14:09 | P.PN ---
Subjective Progress Note Date: 09/22/23 Patient is a 87-year-old white male with past medical history significant for paroxysmal atrial fibrillation chronically anticoagulated on warfarin, severe oxygen dependent COPD, thoracic aortic aneurysm, and current ongoing tobacco dependence. Patient has reportedly followed in the past with Dr. Zapata. Of note, patient was recently admitted March, with hemoptysis. He was treated for a right-sided pneumonia. CT of the chest at that time demonstrated a 5.7 x 6 cm masslike consolidation within the right lower lung superior segment. Sputum had isolated Pseudomonas aeruginosa. Follow-up chest x-ray showed slight improvement in the masslike consolidation. No bronchoscopy was done at this time. Patient returned to the emergency department yesterday evening complaining of 3 to 4 days of worsening exertional dyspnea, chest tightness, and wheezing. He does endorse a productive cough with yellow sputum production. Denies sick contacts or recent travel. Denies any fevers. Denies any chest pain. Denies any hemoptysis. His INR was elevated at 9.4. Denies any bleeding at all. He does do continue to smoke a couple cigarettes every couple days. Reportedly he cannot even walk to the bathroom without becoming severely dyspneic. He has noted increased lower extremity swelling. He is on torsemide outpatient and reportedly voids often. Chest x-ray done on admission shows a opacification of the posterior right lung. This needs to be evaluated for possible lung mass. Patient denies any prior history of cancer. Does admit a 30 pound weight loss over the last 6 to 9 months. No change in appetite. Will need to follow-up chest CT with contrast. May need bronchoscopy and airway examination. CBC on arrival: WBC count 13, hemoglobin 10.4, hematocrit 35.2, platelets 534. BMP on arrival: Sodium 132, potassium 4.3, chloride 95, serum bicarb 32, BUN 28, creatinine 0.79, glucose 143. Troponins less than 0.012. NT proBNP 2280. EKG shows atrial fibrillation with rapid ventricular rate. No obvious ischemic changes. Most recent echocardiogram from March, estimated preserved left ventricular ejection fraction of 55 to 60% along with some mild to moderate mitral regurgitation and mild aortic regurgitation. Patient is currently sitting up in bed, on 4 L/min nasal cannula, in no acute distress. SpO2 is 99%. Heart rhythm on bedside monitor still appears atrial fi brillation. Rate is currently 140 bpm. Cardiology is also consulted and is elected to place this patient on Cardizem infusion. Nurses are working on getting this medication from pharmacy. Patient denies any chest pain, lightheadedness, heart palpitations. Denies nausea. Not diaphoretic. Afebrile. Remaining vital signs are stable. Patient is a 87-year-old white male with past medical history significant for paroxysmal atrial fibrillation chronically anticoagulated on warfarin, severe oxygen dependent COPD, thoracic aortic aneurysm, and current ongoing tobacco dependence. Patient has reportedly followed in the past with Dr. Zapata. Of note, patient was recently admitted March, with hemoptysis. He was treated for a right-sided pneumonia. CT of the chest at that time demonstrated a 5.7 x 6 cm masslike consolidation within the right lower lung superior segment. Sputum had isolated Pseudomonas aeruginosa. Follow-up chest x-ray showed slight improvement in the masslike consolidation. No bronchoscopy was done at this time. Patient returned to the emergency department yesterday evening complaining of 3 to 4 days of worsening exertional dyspnea, chest tightness, and wheezing. He does endorse a productive cough with yellow sputum production. Denies sick contacts or recent travel. Denies any fevers. Denies any chest pain. Denies any hemoptysis. His INR was elevated at 9.4. Denies any bleeding at all. He does do continue to smoke a couple cigarettes every couple days. Reportedly he cannot even walk to the bathroom without becoming severely dyspneic. He has noted increased lower extremity swelling. He is on torsemide outpatient and reportedly voids often. Chest x-ray done on admission shows a opacification of the posterior right lung. This needs to be evaluated for possible lung mass. Patient denies any prior history of cancer. Does admit a 30 pound weight loss over the last 6 to 9 months. No change in appetite. Will need to follow-up chest CT with contrast. May need bronchoscopy and airway examination. CBC on arrival: WBC count 13, hemoglobin 10.4, hematocrit 35.2, platelets 534. BMP on arrival: Sodium 132, potassium 4.3, chloride 95, serum bicarb 32, BUN 28, creatinine 0.79, glucose 143. Troponins less than 0.012. NT proBNP 2280. EKG shows atrial fibrillation with rapid ventricular rate. No obvious ischemic changes. Most recent echocardiogram from March, estimated preserved left ventricular ejection fraction of 55 to 60% along with some mild to moderate mitral regurgitation and mild aortic regurgitation. Patient is currently sitting up in bed, on 4 L/min nasal cannula, in no acute distress. SpO2 is 99%. Heart rhythm on bedside monitor still appears atrial fibrillation. Rate is currently 140 bpm. Cardiology is also consulted and is elected to place this patient on Cardizem infusion. Nurses are working on ge tting this medication from pharmacy. Patient denies any chest pain, lightheadedness, heart palpitations. Denies nausea. Not diaphoretic. Afebrile. Remaining vital signs are stable. 09/22/2023, patient is being seen for a follow-up. Patient is still producing cough with copious amount of thick purulent respiratory secretions. He remains on a combination of Zosyn and vancomycin. Hemodynamically stable. Feels slightly improved compared to yesterday. He is also on DuoNeb nebulized treatments [id number] and IV Solu-Medrol dose of 60 mg every 6 hours. The white cell count is at 17.4 with a hemoglobin 10.7 and a platelet count of 847. Patient was given vitamin K and INR dropped down to 1.5. BUN is at 30 mg time 0.8 and sodium levels at 134 and a potassium level of 4.2. Procalcitonin level was 0.11. Patient is awake and alert and currently is on 40 Suboxone by nasal cannula with a pulse ox of 97%. Chronically debilitated and weak and seems to be quite cachectic with a body mass index of 16.2. The blood cultures are negative. Sputum culture still pending. Objective - Vital Signs Vital signs: Vital Signs Temp 97.8 F 09/22/23 08:00 Pulse 106 H 09/22/23 11:00 Resp 20 09/22/23 11:00 BP 136/96 09/22/23 11:00 Pulse Ox 88 L 09/22/23 08:00 FiO2 Intake & Output 09/21/23 09/22/23 09/22/23 18:59 06:59 18:59 Intake Total 37.75 Output Total 600 700 Balance -562.25 -700 Weight 49.895 kg Intake: Intake, IV Titration 37.75 Amount Diltiazem 125 mg In 37.75 Sodium Chloride 0.9% 100 ml @ 5 MG/HR 5 mls/hr IV .Q24H [facility] Rx#:[id number] Output: Urine 600 700 Other: Voiding Method External Catheter # Voids 1 - Exam GENERAL EXAM: Alert, frail 87-year-old white male, comfortable in no apparent distress. The patient is currently on 4 L of O2 nasal cannula and he carries a body mass index of 16.2 HEAD: Normocephalic and atraumatic EYES: Normal reaction of pupils, equal size. NOSE: Clear with pink turbinates. THROAT: No erythema or exudates. NECK: No masses, no JVD. CHEST: No chest wall deformity. LUNGS: Equal air entry with markedly diminished lung sounds throughout. No crackles, wheezes, rhonchi. No conversational dyspnea or accessory muscle u se.. CVS: S1 and S2 normal with no audible murmur, irregular rhythm. No extra heart sounds ABDOMEN: No hepatosplenomegaly, active bowel sounds, no guarding or rigidity. SPINE: No scoliosis or deformity SKIN: No rashes CENTRAL NERVOUS SYSTEM: No focal deficits, tone is normal in all 4 extremities. EXTREMITIES: There bilateral lower extremity pitting edema. No clubbing, or cyanosis. Peripheral pulses are intact - Labs CBC & Chem 7: 09/22/23 10:36 09/22/23 10:36 Labs: Abnormal Lab Results - Last 24 Hours (Table) 09/21/23 09/22/23 09/22/23 Range/Units 12:11 10:36 10:36 WBC (3.8-10.6) k/uL Hgb (13.0-17.5) gm/dL Hct (39.0-53.0) % MCH (25.0-35.0) pg MCHC (31.0-37.0) g/dL RDW (11.5-15.5) % Plt Count (150-450) k/uL Neutrophils # (1.3-7.7) k/uL Lymphocytes # (1.0-4.8) k/uL PT 119.4 H 15.6 H (10.0-12.5) sec INR >10.0 H* 1.5 H (<1.2) Sodium 134 L (137-145) mmol/L Chloride 94 L (98-107) mmol/L Carbon Dioxide 34 H (22-30) mmol/L BUN 30 H (9-20) mg/dL Glucose 145 H (74-99) mg/dL Alkaline Phosphatase 158 H (38-126) U/L Albumin 3.0 L (3.5-5.0) g/dL 09/22/23 Range/Units 10:36 WBC 17.4 H (3.8-10.6) k/uL Hgb 10.7 L (13.0-17.5) gm/dL Hct 37.0 L (39.0-53.0) % MCH 23.5 L (25.0-35.0) pg MCHC 28.9 L (31.0-37.0) g/dL RDW 16.6 H (11.5-15.5) % Plt Count 847 H (150-450) k/uL Neutrophils # 16.6 H (1.3-7.7) k/uL Lymphocytes # 0.3 L (1.0-4.8) k/uL PT (10.0-12.5) sec INR (<1.2) Sodium (137-145) mmol/L Chloride (98-107) mmol/L Carbon Dioxide (22-30) mmol/L BUN (9-20) mg/dL Glucose (74-99) mg/dL Alkaline Phosphatase (38-126) U/L Albumin (3.5-5.0) g/dL Microbiology - Last 24 Hours (Table) 09/20/23 18:15 Blood Culture - Preliminary Blood Assessment and Plan Assessment: Acute on chronic dyspnea, and hypoxic respiratory failure and the patient is currently on 4 L of oxygen by nasal cannula Right-sided necrotizing pneumonia. I reviewed the series of CAT scans were done and the patient from December 2022, March 2023 and the most recent CAT scan of the chest that was done on 09/21/2023. It seems that the patient developed a cavitating consolidation of the right lower lobe back in March 2023. This was treated in the hospital with antibiotics. Subsequent x-rays were not done. The patient is coming in with worsening shortness of breath, coughing up copious amount of brown and purulent respiratory secretions. A CAT scan of the chest was done and again that showed diffuse emphysematous changes along with scarring and bronchiectasis. The patient has also peribronchial thickening consistent with COPD. There is a patchy area of consolidation/atelectasis in the right lower lobe and some irregular opacities in the left upper lobe and the left lower lobe associated with atelectasis. Patient is currently on a combination of Zosyn and vancomycin pending sputum Gram stain and culture and blood culture. Procalcitonin level is at 0.11. Unintentional weight loss, reportedly lost 30 pounds over a 6 to 9-month timeframe. History of hemoptysis, currently inactive and stable History of left lower lung nodule, followed up outpatient Chronic ongoing tobacco dependence, still smokes 2 to 3 cigarettes every couple days. Severe chronic obstructive pulmonary disease, with an FEV1 37% of predicted Chronic hypoxemic respiratory failure, secondary to above, normally maintained on 4 L/min nasal cannula while at home. Acute leukocytosis Atrial fibrillation with rapid ventricular rate, And the patient was taken off the Cardizem drip and the patient is currently on oral Cardizem 30 mg p.o. 3 t imes daily and INR is down to 1.5 after being given vitamin K. Supratherapeutic INR, recovered and INR is down to 1.5 History of thoracic aortic aneurysm Bilateral lower extremity edema Plan: Continue oxygen 4 L/min nasal cannula and titrated down to maintain saturation above 90% Continue bronchodilators Continue IV Solu-Medrol Continue IV Zosyn and Levaquin Repeat chest x-ray within next 24 hours Echocardiogram was completed and the results are still pending for now We will monitor PT/INR and restart anticoagulation to achieve an INR between 2 and 3 Metoprolol and Cardizem for rate control Dietary supplementation Sputum Gram stain and culture Blood cultures still pending Cardiology consultation Patient is chronically debilitated and carries a body mass index of 16.2. Overall prognosis poor. Will continue to follow make further recommendations based on the progress.
--- NOTE | 2023-09-22 15:48 | P.PN ---
Subjective Progress Note Date: 09/22/23 HISTORY OF PRESENT ILLNESS: This is an 87-year-old male with a previous medical history signifi cant for 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 failure on oxygen at home due to severe COPD with FEV1 of 37% of predicted, chronic atrial fibrillation, thoracic aortic aneurysm, abdominal aortic aneurysm, chronic diastolic heart failure, chronic pulmonary hypertension, patient was recently hospitalized at [facility] back in March 2023 after he was admitted for what appears to be a right lower lobe Pseudomonas pneumonia involving the superior segment of the right lower lobe and it showed like a masslike consolidation back on the CT scan and he was treated and his x-ray showed improvement but never had a bronchoscopy, patient is following regularly with Dr. Zapata as an outpatient, patient stated that he has been feeling sick for the last 2 to 4 weeks and when I asked him why he did not show up to the ER or he did not come to the hospital he stated that his daughter was very sick in the hospital and she has been hospitalized for quite some times, she was supposed to be discharged to subacute rehabilitation because she was sick with some sort of pneumonia, and his was split between his daughter and himself, yesterday patient could not breathe anymore, he has been having fever chills coughing yellow-green phlegm production, so patient presented to the emergency department at [facility] with acute shortness breath associated with increased coughing of yellowish and green sputum has been having increased shortness breath over the last 3 days, he was complain of some fever and chills, he also was complaining of increased fatigue tiredness and weight loss, patient was seen and evaluated in emergency room and he was found to have leukocytosis, a 13,000, he also found to have coagulopathy due to his INR being elevated in the range of 9.7 patient had a chest x-ray that did show evidence of right lower lobe pneumonia, bilateral pleural effusion as well as cardiomegaly, patient initially was started on IV Lasix 20 mg IV push every 12 hours, patient has been requiring quite a bit of oxygen, he was seen in consultation by cardiology who recommended to continue current treatment plan, pulmonary medicine saw the patient, underwent CT scan of the chest that showed evidence of superior segment of the right lower lobe consolidative mass rule out malignancy, possibly cavitating pneumonia, he was started on vancomycin as well as Zosyn, sputum culture will be obtained, blood culture continue oxygen support, continue IV steroid in the form of Solu-Medrol, continue nebulized treatment, patient will be admitted to a telemetry unit, will continue to follow-up with the patient very closely. 09/21: Patient sitting up in bed in minimal respiratory distress, he continues to be on oxygen, he continues to be on IV antibiotic in the form of vancomycin as well as Zosyn, laboratory evaluation are better, his INR is down to 1.5, we will restart the patient back on his Coumadin, monitor his INR keep between 2.5 and 3.5, patient continues to have some coughing, yellow to green phlegm production, he has no fever or chills last night, he has no abdominal pain, nausea vomiting or diarrhea, we will continue with current treatment plan, patient has been followed by pulmonary medicine as well as cardiology, will admit the patient to a telemetry unit. REVIEW OF SYSTEMS: Constitutional: positive for fever, positive for chills, no night sweats. Significant weight change. Positive for weakness, fatigue or lethargy. No daytime sleepiness. HEENT: No headache. No blurred vision or double vision, no loss of vision. No loss of Hearing, no ringing in the ears, no dizziness. No nasal drainage or congestion. No epistaxis. No sore throat. Lungs: positive for shortness of breath, positive for cough,yellow and green sputum production , positive for wheezing. Reports dyspnea with activity. Cardiovascular: No chest pain, positive for lower extremity edema. positive for palpitations. No paroxysmal nocturnal dyspnea. No orthopnea. No lightheadedness or dizziness. No syncopal episodes. Abdominal: Reports abdominal pain. positive for nausea, no vomiting. No diarrhea. No constipation. No bloody or tarry stools reports loss of appetite. Genitourinary: No dysuria, increased frequency, urgency. No urinary retention. Musculoskeletal: No myalgias. positive for muscle weakness, positive for gait dysfunction, no frequent falls. No back pain. No neck pain. Integumentary: No wounds, no lesions. No rash or pruritus. No unusual bruising. No change in hair or nails. Neurologic: No aphasia. No facial droop. No change in mentation. No head injury. No headache. No paralysis. No paresthesia. Psychiatric: No depression. No anxiety. No mood swings. Endocrine: No abnormal blood sugars. No weight change. PHYSICAL EXAMINATION: General: 87-year-old male laying down in bed in minimal respiratory distress. HEENT: Head is atraumatic, normocephalic, pupils were equal round reactive to light and recommendation, extraocular muscle movement were intact, sclera nonicteric, conjunctivae were pale, mucous membranes of the mouth are somewhat dry. Neck: Supple, no JVP, normal carotid upstroke bilaterally, no lymphadenopathy. Chest: Decreased breath sounds at the bases, few rhonchi, minimal expiratory wheezes, no chest wall tenderness, no intercostal retractions. Heart: First heart sound is normal, second heart sound is normal irregularly irregular there is JULI 2/6 located at the left sternal border Abdomen: Soft, nontender, nondistended, positive bowel sounds. Extremities: There is +2 edema no calf tenderness DP +2 bilaterally. Neurologic examination: Patient is awake alert and oriented X 3, cranial nerves II-12 appear grossly intact, muscle power were 4 out of 5 in upper extremities and 3 out of 5 in bilateral lower extremities, deep tendon reflexes normal bilaterally. ASSESSMENT AND PLAN: 1. acute on chronic hypoxemic respiratory failure due to right lower lobe cavitating pneumonia and possible mass. Continue patient on Solu-Medrol 60 mg IV push every 6 hours, DuoNeb 3 mL nebulization 4 times every day, continue patient on vancomycin pharmacy to dose its peak and trough, continue Zosyn 3.375 g IV piggyback every 8 hours, sputum culture, blood culture, mycoplasma IgG and IgM, urine Legionella antigen, patient may need to have a bronchoscopy if the patient is not getting better. 2. Acute on chronic diastolic heart failure with severe pulmonary hypertension. Patient was started on Lasix 20 mg IV push every 12 hours, he was seen by cardiology, recommended current treatment plan, continue spironolactone 25 mg orally once every day. Continue patient on metoprolol 25 mg orally once every day. 3. Chronic atrial fibrillation with rapid ventricular response. Continue patient on metoprolol 25 mg orally once every day as well as Cardizem 30 mg orally 3 times every day, restart the patient back in his Coumadin, keep INR between 2-3 4. Leukocytosis likely related to right lower lobe cavitating pneumonia in the superior segment. Continue IV antibiotic, continue to monitor the patient CBC over the next 24 hours. 5. Coagulopathy due to Coumadin use and sepsis. Back to baseline restart the patient back on the Coumadin keep INR between 2-3. 6. Thoracic aortic aneurysm. Has been under the care of cardiology CT angiography is up-to-date. Has been stable at 4.5 cm. 7. Abdominal aortic and nursing. Stable. 3.8 cm 8. Bullous pemphigoid. Is stable. 9. DVT prophylaxis. Restart the patient back on Coumadin keep INR 2-3. 10. GI prophylaxis. Continue patient on Protonix 40 mg orally once every day. 11. PT OT evaluation. 12. 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 Objective - Vital Signs Vital signs: Vital Signs Temp 97.8 F 09/22/23 08:00 Pulse 64 09/22/23 13:33 Resp 22 09/22/23 13:33 BP 122/90 09/22/23 13:33 Pulse Ox 97 09/22/23 13:33 FiO2 Intake & Output 09/21/23 09/22/23 09/22/23 18:59 06:59 18:59 Intake Total 37.75 Output Total 600 700 Balance -562.25 -700 Weight 49.895 kg Intake: Intake, IV Titration 37.75 Amount Diltiazem 125 mg In 37.75 Sodium Chloride 0.9% 100 ml @ 5 MG/HR 5 mls/hr IV .Q24H [facility] Rx#:[id number] Output: Urine 600 700 Other: Voiding Method External Catheter # Voids 1 - Labs CBC & Chem 7: 09/22/23 10:36 09/22/23 10:36 Labs: Abnormal Lab Results - Last 24 Hours (Table) 09/22/23 09/22/23 09/22/23 Range/Units 10:36 10:36 10:36 WBC 17.4 H (3.8-10.6) k/uL Hgb 10.7 L (13.0-17.5) gm/dL Hct 37.0 L (39.0-53.0) % MCH 23.5 L (25.0-35.0) pg MCHC 28.9 L (31.0-37.0) g/dL RDW 16.6 H (11.5-15.5) % Plt Count 847 H (150-450) k/uL Neutrophils # 16.6 H (1.3-7.7) k/uL Lymphocytes # 0.3 L (1.0-4.8) k/uL PT 15.6 H (10.0-12.5) sec INR 1.5 H (<1.2) Sodium 134 L (137-145) mmol/L Chloride 94 L (98-107) mmol/L Carbon Dioxide 34 H (22-30) mmol/L BUN 30 H (9-20) mg/dL Glucose 145 H (74-99) mg/dL Alkaline Phosphatase 158 H (38-126) U/L Albumin 3.0 L (3.5-5.0) g/dL Microbiology - Last 24 Hours (Table) 09/21/23 13:23 Gram Stain - Preliminary Sputum 09/20/23 18:15 Blood Culture - Preliminary Blood
[2023-09-22] MEDS: WARFARIN 2 MG TAB PO ONE (17:03)
[2023-09-22] MEDS ORDERED: WARFARIN 5 MG TAB PO SCH (21:00)
[2023-09-23 08:43] LABS: Anisocytosis Slight; Basophils % (A) 0 %; Eosinophils % (A) 0 %; HCT 34.7 % (39.0-53.0); HGB 10.2 gm/dL (13.0-17.5); Hypochromasia Moderate; Lymphocytes # (A) 0.2 k/uL (1.0-4.8); Lymphocytes % (A) 2 %; MCH 23.7 pg (25.0-35.0); MCHC 29.4 g/dL (31.0-37.0); MCV 80.8 fL (80.0-100.0); Mean Platelet Volume 7.2; Monocytes # (A) 0.4 k/uL (0-1.0); Monocytes % (A) 3 %; Neutrophils # (A) 12.9 k/uL (1.3-7.7); Neutrophils % (A) 95 %; Platelet Count 765 k/uL (150-450); RBC 4.29 m/uL (4.30-5.90); RDW 16.6 % (11.5-15.5); WBC 13.5 k/uL (3.8-10.6)
[2023-09-23 08:54] LABS: INR 1.9 (<1.2); Prothrombin Time 18.8 sec (10.0-12.5)
[2023-09-23 08:58] LABS: ALT 26 U/L (4-49); AST 35 U/L (17-59); African American GFR (CKD) >90 (>60 ml/min/1.73 sqM); Albumin 2.9 g/dL (3.5-5.0); Alkaline Phosphatase 135 U/L (38-126); Anion Gap 5 mmol/L; Blood Urea Nitrogen 35 mg/dL (9-20); Calcium 8.1 mg/dL (8.4-10.2); Carbon Dioxide 35 mmol/L (22-30); Chloride 95 mmol/L (98-107); Glucose 118 mg/dL (74-99); Non-African American GFR(CKD) 80 (>60 ml/min/1.73 sqM); Potassium 4.2 mmol/L (3.5-5.1); Sodium 135 mmol/L (137-145); Total Bilirubin 0.3 mg/dL (0.2-1.3); Total Protein 5.7 g/dL (6.3-8.2)
[2023-09-23] MEDS: DILTIAZEM ORAL 30 MG TAB PO STA (09:17)
[2023-09-23] MEDS: METOPROLOL SUCCINATE (ER) 25 MG TAB.ER.24H PO STA (09:17)
--- NOTE | 2023-09-23 11:42 | P.PN ---
Subjective Progress Note Date: 09/23/23 Reason for Consult (text): Pulmonary edema History of present illness: History of present illness: This is an 87-year-old male patient of Dr. Cardenas with past medical history of hypertension, permanent atrial fibrillation on Coumadin, aortic aneurysm, diastolic heart failure, chronic lower extremity edema, COPD, chronic hypoxic respiratory failure on home O2, mitral regurgitation. We have been asked to evaluate the patient for pulmonary edema. Patient complains of shortness of breath for 2 to 3 days along with cough and sputum production. No fever or chills. No lower extremity edema change. He always has some. He states he has been taking his medications but seems to be confused about some of them. Patient has been started on IV Lasix 20 mg every 12 hours along with IV Solu- Medrol, IV antibiotics, and nebulizer treatments. Patient is seen today in the emergency center waiting for bed on the cardiac stepdown unit. EKG #1 atrial fibrillation with ventricular rate of 113 bpm, #2 atrial fibrillation with ventricular rate of 112 bpm Chest x-ray: Opacification posterior right lung. Workup for mass is recommended. CT of the chest reveals pleural effusions with associated atelectasis. Dense superior segment right lower lobe consolidation versus mass with possible fluid component. Redemonstration of L pace that he is in the left upper lobe and left lower lobe not changed. Diffuse emphysematous changes. Unchanged ascending aortic aneurysm. Laboratory studies: WBC 13, hemoglobin 10.4, platelet count 534. INR 9.4. Sodium 132, potassium 4.3, chloride 95, CO2 32, BUN 28 creatinine 0.79. Glucose 143. Alkaline phosphatase 159. Troponin negative x 1. proBNP 2280. Procalcitonin 0.11. Home cardiac medications: Flecainide 50 mg every 12 hours, spironolactone 25 mg daily, Demadex 20 mg daily, Coumadin 2.5 mg every day except for Monday is 5 mg. Echocardiogram performed 03/22/2023 reveals EF of 55 to 60%. Mild to moderate mitral regurgitation. Mild aortic regurgitation. 09/21 Patient is seen today in the emergency center. Blood pressure 121/102, heart rate 138, pulse ox 96% on 4 L nasal cannula. Patient has been maintained on IV Lasix 20 mg every 12 hours. Telemetry is atrial flutter with rate in the 130s a nd 140s. Patient is not on any rate control medications. Patient is on heparin drip. Yesterday, patient received 1 dose of vitamin K 5 mg for INR of 10. Blood work for this morning is not available at the time of this dictation. Discussed with patient option of starting him on Eliquis versus returning to Coumadin. He is willing to do this. We will send a prescription through to his pharmacy to check coverage. 09/22 Yesterday, Dr. Recinos discussed with the patient option of utilizing Eliquis versus Coumadin and patient was open to this. [facility] was called this morning and patient does not have any prescription coverage. Patient will be maintained on Coumadin at this time pharmacy dosing. INR today is 1.9. Other lab work reveals hemoglobin of 10.2, WBC 13.5. Sodium 135, BUN 35 creatinine 0.83. Telemetry is atrial fibrillation at heart rate of 116. Blood pressure 145/97, pulse ox 96% on 4 L nasal cannula. Yesterday patient was started on Cardizem 30 mg 3 times daily. Patient is maintained on IV Lasix 20 mg every 12 hours. Patient continues to have labored breathing and patient states that Dr. Palm is planning for bronchoscopy. Patient is asking about event monitor report that was done from the office. This will be obtained and reviewed with the patient tomorrow if available. Physical examination: Gen: This is an 87-year-old male in no acute distress VS: reviewed HEENT: Head is atraumatic, normocephalic. Pupils equal, round. Sclerae is anicteric. NECK: Supple. No JVD. LUNGS: Diminished breath sounds bilaterally. + accessory muscle usage, + in tercostal retractions. HEART: Irregular rate and rhythm. No murmur. ABDOMEN: Soft No tenderness. EXTREMITIES: Bilateral 2+ pedal edema. No calf tenderness. NEUROLOGICAL: Patient is awake, alert and oriented x3. Assessment: Acute on chronic hypoxic respiratory failure secondary to COPD, acute on chronic diastolic heart failure, pleural effusions Permanent atrial fibrillation, currently rate controlled Atrial flutter with RVR Chronic diastolic heart failure Thoracic aortic aneurysm Lung nodule Hypercoagulopathy secondary to Coumadin status post vitamin K 09/20 Plan: Continue patient's home cardiac medications Pharmacy dosing Coumadin, patient is unable to afford Eliquis because he does no t have prescription coverage Continue patient on Cardizem and increase to 60 mg 3 times daily, continue Toprol XL 25 mg daily Continue IV Lasix 20 mg every 12 hours Monitor HELIO, daily weights, electrolytes and renal function No need to repeat echocardiogram Obtain an event monitor report from the office if available further recommendations to follow based upon clinical course Nurse practitioner note has been reviewed, I agree with documented findings and plan of care. Patient was seen and examined. Objective - Vital Signs Vital signs: Vital Signs Temp 97.3 F L 09/23/23 07:58 Pulse 120 H 09/23/23 08:51 Resp 20 09/23/23 07:58 BP 145/97 09/23/23 07:58 Pulse Ox 96 09/23/23 08:39 FiO2 Intake & Output 09/22/23 09/23/23 09/23/23 18:59 06:59 18:59 Intake Total 820 Output Total 700 200 Balance 120 -200 Weight 49.895 kg 52.3 kg Intake: Intake, IV Titration 100 Amount Piperacillin-Tazobactam 3 100 .375 gm In Sodium Chloride 0.9% 100 ml @ 25 mls/hr IVPB Q8H [facility] Rx#: [id number] Oral 720 Output: Urine 700 200 Other: Voiding Method External Catheter Bedside Commode Urinal # Voids 1 1 - Labs CBC & Chem 7: 09/23/23 08:03 09/23/23 08:03 Labs: Abnormal Lab Results - Last 24 Hours (Table) 09/22/23 09/22/23 09/22/23 Range/Units 10:36 10:36 10:36 WBC 17.4 H (3.8-10.6) k/uL RBC (4.30-5.90) m/uL Hgb 10.7 L (13.0-17.5) gm/dL Hct 37.0 L (39.0-53.0) % MCH 23.5 L (25.0-35.0) pg MCHC 28.9 L (31.0-37.0) g/dL RDW 16.6 H (11.5-15.5) % Plt Count 847 H (150-450) k/uL Neutrophils # 16.6 H (1.3-7.7) k/uL Lymphocytes # 0.3 L (1.0-4.8) k/uL PT 15.6 H (10.0-12.5) sec INR 1.5 H (<1.2) Sodium 134 L (137-145) mmol/L Chloride 94 L (98-107) mmol/L Carbon Dioxide 34 H (22-30) mmol/L BUN 30 H (9-20) mg/dL Glucose 145 H (74-99) mg/dL Calcium (8.4-10.2) mg/dL Alkaline Phosphatase 158 H (38-126) U/L Total Protein (6.3-8.2) g/dL Albumin 3.0 L (3.5-5.0) g/dL 09/23/23 09/23/23 09/23/23 Range/Units 08:03 08:03 08:03 WBC 13.5 H (3.8-10.6) k/uL RBC 4.29 L (4.30-5.90) m/uL Hgb 10.2 L (13.0-17.5) gm/dL Hct 34.7 L (39.0-53.0) % MCH 23.7 L (25.0-35.0) pg MCHC 29.4 L (31.0-37.0) g/dL RDW 16.6 H (11.5-15.5) % Plt Count 765 H (150-450) k/uL Neutrophils # 12.9 H (1.3-7.7) k/uL Lymphocytes # 0.2 L (1.0-4.8) k/uL PT 18.8 H (10.0-12.5) sec INR 1.9 H (<1.2) Sodium 135 L (137-145) mmol/L Chloride 95 L (98-107) mmol/L Carbon Dioxide 35 H (22-30) mmol/L BUN 35 H (9-20) mg/dL Glucose 118 H (74-99) mg/dL Calcium 8.1 L (8.4-10.2) mg/dL Alkaline Phosphatase 135 H (38-126) U/L Total Protein 5.7 L (6.3-8.2) g/dL Albumin 2.9 L (3.5-5.0) g/dL Microbiology - Last 24 Hours (Table) 09/21/23 19:13 Blood Culture - Preliminary Blood 09/20/23 18:15 Blood Culture - Preliminary Blood 09/21/23 14:11 Nasal Screen MRSA/MSSA - Final Nasal Swab 09/21/23 13:23 Gram Stain - Preliminary Sputum Sputum Culture - Preliminary Serratia marcescens
[2023-09-23] MEDS: guaiFENesin-DM 600/30MG 1 EACH TAB.ER.12H PO SCH (11:50)
--- NOTE | 2023-09-23 13:11 | P.PN ---
Subjective Progress Note Date: 09/23/23 This is an 87-year-old male with a previous medical history significant for 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 failure on oxygen at home due to severe COPD with FEV1 of 37% of predicted, chronic atrial fibrillation, thoracic aortic aneurysm, abdominal aortic aneurysm, chronic diastolic heart failure, chronic pulmonary hypertension, patient was recently hospitalized at [facility] back in March 2023 after he was admitted for what appears to be a right lower lobe Pseudomonas pneumonia involving the superior segment of the right lower lobe and it showed like a masslike consolidation back on the CT scan and he was treated and his x- ray showed improvement but never had a bronchoscopy, patient is following regularly with Dr. Zapata as an outpatient, patient stated that he has been feeling sick for the last 2 to 4 weeks and when I asked him why he did not show up to the ER or he did not come to the hospital he stated that his daughter was very sick in the hospital and she has been hospitalized for quite some times, she was supposed to be discharged to subacute rehabilitation because she was sick with some sort of pneumonia, and his was split between his daughter and himself, yesterday patient could not breathe anymore, he has been having fever chills coughing yellow-green phlegm production, so patient presented to the emergency department at [facility] with acute shortness breath associated with increased coughing of yellowish and green sputum has been having increased shortness breath over the last 3 days, he was complain of some fever and chills, he also was complaining of increased fatigue tiredness and weight loss, patient was seen and evaluated in emergency room and he was found to have leukocytosis, a 13,000, he also found to have coagulopathy due to his INR being elevated in the range of 9.7 patient had a chest x-ray that did show evidence of right lower lobe pneumonia, bilateral pleural effusion as well as cardiomegaly, patient initially was started on IV Lasix 20 mg IV push every 12 hours, patient has been requiring quite a bit of oxygen, he was seen in consultation by cardiology who recommended to continue current treatment plan, pulmonary medicine saw the patient, underwent CT scan of the chest that showed evidence of superior segment of the right lower lobe consolidative mass rule out malignancy, possibly cavitating pneumonia, he was started on vancomycin as well as Zosyn, sputum culture will be obtained, blood culture continue oxygen support, continue IV steroid in the form of Solu-Medrol, continue nebulized treatment, patient will be admitted to a telemetry unit, will continue to follow-up with the patient very closely. 09/21: Patient sitting up in bed in minimal respiratory distress, he continues to be on oxygen, he continues to be on IV antibiotic in the form of vancomycin as well as Zosyn, laboratory evaluation are better, his INR is down to 1.5, we will restart the patient back on his Coumadin, monitor his INR keep between 2.5 and 3.5, patient continues to have some coughing, yellow to green phlegm production, he has no fever or chills last night, he has no abdominal pain, nausea vomiting or diarrhea, we will continue with current treatment plan, patient has been followed by pulmonary medicine as well as cardiology, will admit the patient to a telemetry unit. 09/22. Patient seen and examined. Patient continues to get short of breath on minimal exertion. Currently on 4 L of oxygen. Patient complaining of cough REVIEW OF SYSTEMS: CONSTITUTIONAL: No fever, no malaise,. CARDIOVASCULAR: No chest pain, no palpitations, no syncope. PULMONARY: Mentioned above GASTROINTESTINAL: No diarrhea, no nausea, no vomiting, no abdominal pain. NEUROLOGICAL: No headaches, no weakness, PHYSICAL EXAMINATION: GENERAL: The patient is alert and oriented x3, cachectic, chronically ill looking HEENT: Pupils are round and equally reacting to light. EOMI. No scleral icterus. No conjunctival pallor. Normocephalic, atraumatic. No pharyngeal erythema. No thyromegaly. CARDIOVASCULAR: S1 and S2 present. No murmurs, rubs, or gallops. PULMONARY: Coarse breath sound bilaterally, expiratory wheeze audible ABDOMEN: Soft, nontender, nondistended, normoactive bowel sounds. No palpable organomegaly. MUSCULOSKELETAL: No joint swelling or deformity. EXTREMITIES: No cyanosis, clubbing, or pedal edema. NEUROLOGICAL: Gross neurological examination did not reveal any focal deficits. SKIN: No rashes. Assessment and plan 1. acute on chronic hypoxemic respiratory failure due to right lower lobe cavitating pneumonia and possible mass. Monitor vital signs monitor CBC Monitor CMP Continue oxygen supplementation aggressive bronchopulmonary hygiene Continue IV Solu-Medrol Continue IV cefepime Pulmonology following 2. Acute on chronic diastolic heart failure with severe pulmonary hypertension. Strict I's and O's, daily weights, continue IV Lasix. Continue Toprol, Cardizem. Cardiology following 3. Chronic atrial fibrillation with rapid ventricular response. Continue p atient on metoprolol 25 mg orally once every day as well as Cardizem 30 mg orally 3 times every day, restart the patient back in his Coumadin, keep INR between 2-3 4. Leukocytosis likely related to right lower lobe cavitating pneumonia in the superior segment. Continue IV antibiotic, continue to monitor the patient CBC over the next 24 hours. 5. Coagulopathy due to Coumadin use and sepsis. Continue pharmacy dose Coumadin 6. Thoracic aortic aneurysm. Has been under the care of cardiology CT angiography is up-to-date. Has been stable at 4.5 cm. 7. Abdominal aortic and nursing. Stable. 3.8 cm 8. Bullous pemphigoid. Is stable. 9. DVT prophylaxis. Continue Coumadin 10. GI prophylaxis. Continue patient on Protonix 40 mg orally once every day. Labs and medication were reviewed.. Continue same treatment. Continue with symptomatic treatment. Resume home medication. Monitor labs and vitals. DVT and GI prophylaxis. Further recommendations as per clinical course of the patient Dictation was produced using [employer] dictation software. please excuse any grammatical, word or spelling errors. Objective - Vital Signs Vital signs: Vital Signs Temp 97.3 F L 09/23/23 07:58 Pulse 120 H 09/23/23 08:51 Resp 20 09/23/23 07:58 BP 145/97 09/23/23 07:58 Pulse Ox 96 09/23/23 08:39 FiO2 Intake & Output 09/22/23 09/23/23 09/23/23 18:59 06:59 18:59 Intake Total 820 Output Total 700 200 Balance 120 -200 Weight 49.895 kg 52.3 kg Intake: Intake, IV Titration 100 Amount Piperacillin-Tazobactam 3 100 .375 gm In Sodium Chloride 0.9% 100 ml @ 25 mls/hr IVPB Q8H [facility] Rx#: [id number] Oral 720 Output: Urine 700 200 Other: Voiding Method External Catheter Bedside Commode Urinal # Voids 1 1 - Labs CBC & Chem 7: 09/23/23 08:03 09/23/23 08:03 Labs: Abnormal Lab Results - Last 24 Hours (Table) 09/22/23 09/22/23 09/22/23 Range/Units 10:36 10:36 10:36 WBC 17.4 H (3.8-10.6) k/uL RBC (4.30-5.90) m/uL Hgb 10.7 L (13.0-17.5) gm/dL Hct 37.0 L (39.0-53.0) % MCH 23.5 L (25.0-35.0) pg MCHC 28.9 L (31.0-37.0) g/dL RDW 16.6 H (11.5-15.5) % Plt Count 847 H (150-450) k/uL Neutrophils # 16.6 H (1.3-7.7) k/uL Lymphocytes # 0.3 L (1.0-4.8) k/uL PT 15.6 H (10.0-12.5) sec INR 1.5 H (<1.2) Sodium 134 L (137-145) mmol/L Chloride 94 L (98-107) mmol/L Carbon Dioxide 34 H (22-30) mmol/L BUN 30 H (9-20) mg/dL Glucose 145 H (74-99) mg/dL Calcium (8.4-10.2) mg/dL Alkaline Phosphatase 158 H (38-126) U/L Total Protein (6.3-8.2) g/dL Albumin 3.0 L (3.5-5.0) g/dL 09/23/23 09/23/23 09/23/23 Range/Units 08:03 08:03 08:03 WBC 13.5 H (3.8-10.6) k/uL RBC 4.29 L (4.30-5.90) m/uL Hgb 10.2 L (13.0-17.5) gm/dL Hct 34.7 L (39.0-53.0) % MCH 23.7 L (25.0-35.0) pg MCHC 29.4 L (31.0-37.0) g/dL RDW 16.6 H (11.5-15.5) % Plt Count 765 H (150-450) k/uL Neutrophils # 12.9 H (1.3-7.7) k/uL Lymphocytes # 0.2 L (1.0-4.8) k/uL PT 18.8 H (10.0-12.5) sec INR 1.9 H (<1.2) Sodium 135 L (137-145) mmol/L Chloride 95 L (98-107) mmol/L Carbon Dioxide 35 H (22-30) mmol/L BUN 35 H (9-20) mg/dL Glucose 118 H (74-99) mg/dL Calcium 8.1 L (8.4-10.2) mg/dL Alkaline Phosphatase 135 H (38-126) U/L Total Protein 5.7 L (6.3-8.2) g/dL Albumin 2.9 L (3.5-5.0) g/dL Microbiology - Last 24 Hours (Table) 09/21/23 13:23 Gram Stain - Final Sputum Sputum Culture - Final Serratia marcescens 09/21/23 19:13 Blood Culture - Preliminary Blood 09/20/23 18:15 Blood Culture - Preliminary Blood 09/21/23 14:11 Nasal Screen MRSA/MSSA - Final Nasal Swab
[2023-09-23] MEDS: methylPREDNISolone SOD SUCCI 40 MG/ML 1 ML VIAL IV SCH (13:44)
--- NOTE | 2023-09-23 14:05 | P.PN ---
Subjective Progress Note Date: 09/23/23 Patient is a 87-year-old white male with past medical history significant for paroxysmal atrial fibrillation chronically anticoagulated on warfarin, severe oxygen dependent COPD, thoracic aortic aneurysm, and current ongoing tobacco dependence. Patient has reportedly followed in the past with Dr. Zapata. Of note, patient was recently admitted March, with hemoptysis. He was treated for a right-sided pneumonia. CT of the chest at that time demonstrated a 5.7 x 6 cm masslike consolidation within the right lower lung superior segment. Sputum had isolated Pseudomonas aeruginosa. Follow-up chest x-ray showed slight improvement in the masslike consolidation. No bronchoscopy was done at this time. Patient returned to the emergency department yesterday evening complaining of 3 to 4 days of worsening exertional dyspnea, chest tightness, and wheezing. He does endorse a productive cough with yellow sputum production. Denies sick contacts or recent travel. Denies any fevers. Denies any chest pain. Denies any hemoptysis. His INR was elevated at 9.4. Denies any bleeding at all. He does do continue to smoke a couple cigarettes every couple days. Reportedly he cannot even walk to the bathroom without becoming severely dyspneic. He has noted increased lower extremity swelling. He is on torsemide outpatient and reportedly voids often. Chest x-ray done on admission shows a opacification of the posterior right lung. This needs to be evaluated for possible lung mass. Patient denies any prior history of cancer. Does admit a 30 pound weight loss over the last 6 to 9 months. No change in appetite. Will need to follow-up chest CT with contrast. May need bronchoscopy and airway examination. CBC on arrival: WBC count 13, hemoglobin 10.4, hematocrit 35.2, platelets 534. BMP on arrival: Sodium 132, potassium 4.3, chloride 95, serum bicarb 32, BUN 28, creatinine 0.79, glucose 143. Troponins less than 0.012. NT proBNP 2280. EKG shows atrial fibrillation with rapid ventricular rate. No obvious ischemic changes. Most recent echocardiogram from March, estimated preserved left ventricular ejection fraction of 55 to 60% along with some mild to moderate mitral regurgitation and mild aortic regurgitation. Patient is currently sitting up in bed, on 4 L/min nasal cannula, in no acute distress. SpO2 is 99%. Heart rhythm on bedside monitor still appears atrial fi brillation. Rate is currently 140 bpm. Cardiology is also consulted and is elected to place this patient on Cardizem infusion. Nurses are working on getting this medication from pharmacy. Patient denies any chest pain, lightheadedness, heart palpitations. Denies nausea. Not diaphoretic. Afebrile. Remaining vital signs are stable. Patient is a 87-year-old white male with past medical history significant for paroxysmal atrial fibrillation chronically anticoagulated on warfarin, severe oxygen dependent COPD, thoracic aortic aneurysm, and current ongoing tobacco dependence. Patient has reportedly followed in the past with Dr. Zapata. Of note, patient was recently admitted March, with hemoptysis. He was treated for a right-sided pneumonia. CT of the chest at that time demonstrated a 5.7 x 6 cm masslike consolidation within the right lower lung superior segment. Sputum had isolated Pseudomonas aeruginosa. Follow-up chest x-ray showed slight improvement in the masslike consolidation. No bronchoscopy was done at this time. Patient returned to the emergency department yesterday evening complaining of 3 to 4 days of worsening exertional dyspnea, chest tightness, and wheezing. He does endorse a productive cough with yellow sputum production. Denies sick contacts or recent travel. Denies any fevers. Denies any chest pain. Denies any hemoptysis. His INR was elevated at 9.4. Denies any bleeding at all. He does do continue to smoke a couple cigarettes every couple days. Reportedly he cannot even walk to the bathroom without becoming severely dyspneic. He has noted increased lower extremity swelling. He is on torsemide outpatient and reportedly voids often. Chest x-ray done on admission shows a opacification of the posterior right lung. This needs to be evaluated for possible lung mass. Patient denies any prior history of cancer. Does admit a 30 pound weight loss over the last 6 to 9 months. No change in appetite. Will need to follow-up chest CT with contrast. May need bronchoscopy and airway examination. CBC on arrival: WBC count 13, hemoglobin 10.4, hematocrit 35.2, platelets 534. BMP on arrival: Sodium 132, potassium 4.3, chloride 95, serum bicarb 32, BUN 28, creatinine 0.79, glucose 143. Troponins less than 0.012. NT proBNP 2280. EKG shows atrial fibrillation with rapid ventricular rate. No obvious ischemic changes. Most recent echocardiogram from March, estimated preserved left ventricular ejection fraction of 55 to 60% along with some mild to moderate mitral regurgitation and mild aortic regurgitation. Patient is currently sitting up in bed, on 4 L/min nasal cannula, in no acute distress. SpO2 is 99%. Heart rhythm on bedside monitor still appears atrial fibrillation. Rate is currently 140 bpm. Cardiology is also consulted and is elected to place this patient on Cardizem infusion. Nurses are working on ge tting this medication from pharmacy. Patient denies any chest pain, lightheadedness, heart palpitations. Denies nausea. Not diaphoretic. Afebrile. Remaining vital signs are stable. 09/22/2023, patient is being seen for a follow-up. Patient is still producing cough with copious amount of thick purulent respiratory secretions. He remains on a combination of Zosyn and vancomycin. Hemodynamically stable. Feels slightly improved compared to yesterday. He is also on DuoNeb nebulized treatments [id number] and IV Solu-Medrol dose of 60 mg every 6 hours. The white cell count is at 17.4 with a hemoglobin 10.7 and a platelet count of 847. Patient was given vitamin K and INR dropped down to 1.5. BUN is at 30 mg time 0.8 and sodium levels at 134 and a potassium level of 4.2. Procalcitonin level was 0.11. Patient is awake and alert and currently is on 40 Suboxone by nasal cannula with a pulse ox of 97%. Chronically debilitated and weak and seems to be quite cachectic with a body mass index of 16.2. The blood cultures are negative. Sputum culture still pending. 09/23/2023, the patient is being seen for a follow-up. The patient is being treated for an extensive right lung pneumonia. He remains on IV antibiotics and the patient is currently on IV cefepime. Cultures from the sputum showed Serratia marcescens. The blood culture has been negative x 2. The white cell count is at 13.5 with a hemoglobin 10.2. Platelet count is 765. INR is 1.9. BUN 35 with a creatinine of 0.8 and sodium levels at 135. The patient seems to be less short of breath. Nevertheless, he has significant ongoing respiratory insufficiency. He has ongoing cough, unable to bring up much of sputum as he feels that the sputum is quite trapped in his lungs. Procalcitonin level is at 0.11. No altered mentation. Oxygen requirement remains at 3 L with a pulse ox of 99 to 100%. He remains in atrial fibrillation. Objective - Vital Signs Vital signs: Vital Signs Temp 97.3 F L 09/23/23 07:58 Pulse 120 H 09/23/23 08:51 Resp 20 09/23/23 07:58 BP 145/97 09/23/23 07:58 Pulse Ox 96 09/23/23 08:39 FiO2 Intake & Output 09/22/23 09/23/23 09/23/23 18:59 06:59 18:59 Intake Total 820 Output Total 700 200 Balance 120 -200 Weight 49.895 kg 52.3 kg Intake: Intake, IV Titration 100 Amount Piperacillin-Tazobactam 3 100 .375 gm In Sodium Chloride 0.9% 100 ml @ 25 mls/hr IVPB Q8H [facility] Rx#: [id number] Oral 720 Output: Urine 700 200 Other: Voiding Method External Catheter Bedside Commode Urinal # Voids 1 1 - Exam GENERAL EXAM: Alert, frail 87-year-old white male, comfortable in no apparent distress. The patient is currently on 3 L of O2 nasal cannula and he carries a body mass index of 16.2 HEAD: Normocephalic and atraumatic EYES: Normal reaction of pupils, equal size. NOSE: Clear with pink turbinates. THROAT: No erythema or exudates. NECK: No masses, no JVD. CHEST: No chest wall deformity. LUNGS: Equal air entry with markedly diminished lung sounds throughout. No crackles, wheezes, rhonchi. No conversational dyspnea or accessory muscle use.. CVS: S1 and S2 normal with no audible murmur, irregular rhythm. No extra heart sounds ABDOMEN: No hepatosplenomegaly, active bowel sounds, no guarding or rigidity. SPINE: No scoliosis or deformity SKIN: No rashes CENTRAL NERVOUS SYSTEM: No focal deficits, tone is normal in all 4 extremities. EXTREMITIES: There bilateral lower extremity pitting edema. No clubbing, or cyanosis. Peripheral pulses are intact - Labs CBC & Chem 7: 09/23/23 08:03 09/23/23 08:03 Labs: Abnormal Lab Results - Last 24 Hours (Table) 09/22/23 09/22/2309/21/24 Range/Units 10:36 10:36 10:36 WBC 17.4 H (3.8-10.6) k/uL RBC (4.30-5.90) m/uL Hgb 10.7 L (13.0-17.5) gm/dL Hct 37.0 L (39.0-53.0) % MCH 23.5 L (25.0-35.0) pg MCHC 28.9 L (31.0-37.0) g/dL RDW 16.6 H (11.5-15.5) % Plt Count 847 H (150-450) k/uL Neutrophils # 16.6 H (1.3-7.7) k/uL Lymphocytes # 0.3 L (1.0-4.8) k/uL PT 15.6 H (10.0-12.5) sec INR 1.5 H (<1.2) Sodium 134 L (137-145) mmol/L Chloride 94 L (98-107) mmol/L Carbon Dioxide 34 H (22-30) mmol/L BUN 30 H (9-20) mg/dL Glucose 145 H (74-99) mg/dL Calcium (8.4-10.2) mg/dL Alkaline Phosphatase 158 H (38-126) U/L Total Protein (6.3-8.2) g/dL Albumin 3.0 L (3.5-5.0) g/dL 09/23/23 09/23/23 09/23/23 Range/Units 08:03 08:03 08:03 WBC 13.5 H (3.8-10.6) k/uL RBC 4.29 L (4.30-5.90) m/uL Hgb 10.2 L (13.0-17.5) gm/dL Hct 34.7 L (39.0-53.0) % MCH 23.7 L (25.0-35.0) pg MCHC 29.4 L (31.0-37.0) g/dL RDW 16.6 H (11.5-15.5) % Plt Count 765 H (150-450) k/uL Neutrophils # 12.9 H (1.3-7.7) k/uL Lymphocytes # 0.2 L (1.0-4.8) k/uL PT 18.8 H (10.0-12.5) sec INR 1.9 H (<1.2) Sodium 135 L (137-145) mmol/L Chloride 95 L (98-107) mmol/L Carbon Dioxide 35 H (22-30) mmol/L BUN 35 H (9-20) mg/dL Glucose 118 H (74-99) mg/dL Calcium 8.1 L (8.4-10.2) mg/dL Alkaline Phosphatase 135 H (38-126) U/L Total Protein 5.7 L (6.3-8.2) g/dL Albumin 2.9 L (3.5-5.0) g/dL Microbiology - Last 24 Hours (Table) 09/21/23 13:23 Gram Stain - Final Sputum Sputum Culture - Final Serratia marcescens 09/21/23 19:13 Blood Culture - Preliminary Blood 09/20/23 18:15 Blood Culture - Preliminary Blood 09/21/23 14:11 Nasal Screen MRSA/MSSA - Final Nasal Swab Assessment and Plan Assessment: Acute on chronic dyspnea, and hypoxic respiratory failure and the patient is currently on 3 L of oxygen by nasal cannula Right-sided necrotizing pneumonia. I reviewed the series of CAT scans were done and the patient from December 2022, March 2023 and the most recent CAT scan of the chest that was done on 09/21/2023. It seems that the patient developed a cavitating consolidation of the right lower lobe back in March 2023. This was treated in the hospital with antibiotics. Subsequent x-rays were not done. The patient is coming in with worsening shortness of breath, coughing up copious amount of brown and purulent respiratory secretions. A CAT scan of the chest was done and again that showed diffuse emphysematous changes along with scarring and bronchiectasis. The patient has also peribronchial thickening consistent with COPD. There is a patchy area of consolidation/atelectasis in the right lower lobe and some irregular opacities in the left upper lobe and the left lower lobe associated with atelectasis. Patient is currently on IV cefepime. Procalcitonin level is at 0.11. Sputum culture has shown Serratia marcescens. Unintentional weight loss, reportedly lost 30 pounds over a 6 to 9-month timeframe. History of hemoptysis, currently inactive and stable History of left lower lung nodule, followed up outpatient Chronic ongoing tobacco dependence, still smokes 2 to 3 cigarettes every couple days. Severe chronic obstructive pulmonary disease, with an FEV1 37% of predicted Chronic hypoxemic respiratory failure, secondary to above, normally maintained on 4 L/min nasal cannula while at home. Acute leukocytosis Atrial fibrillation with rapid ventricular rate, And the patient was taken off the Cardizem drip and the patient is currently on oral Cardizem 30 mg p.o. 3 times daily and INR is down to 1.5 after being given vitamin K. Supratherapeutic INR, recovered and INR is down to 1.5 History of thoracic aortic aneurysm Bilateral lower extremity edema Plan: Continue oxygen 3 L/min nasal cannula and titrated down to maintain saturation above 90% Continue bronchodilators Continue IV Solu-Medrol Continue IV cefepime Repeat chest x-ray within next 24 hours Give the patient a flutter valve And Mucinex DM twice a day Echocardiogram was completed and the results are still pending for now We will monitor PT/INR and restart anticoagulation to achieve an INR between 2 and 3, INR is currently at 1.9 and the medical group is adjusting the Coumadin level. Metoprolol and Cardizem for rate control Dietary supplementation Sputum Gram stain and culture Blood cultures still pending Cardiology consultation Patient is chronically debilitated and carries a body mass index of 16.2. Overall prognosis poor. Will continue to follow make further recommendations based on the progress.
[2023-09-23] MEDS: CEFEPIME 2 GM in SODIUM CHLORIDE 0.9% 100 ML IVPB SCH (15:38)
[2023-09-23] MEDS: DILTIAZEM ORAL 60 MG TAB PO SCH (15:38)
[2023-09-23] MEDS ORDERED: CEFEPIME 2 GM in SODIUM CHLORIDE 0.9% 100 ML IVPB SCH (16:00)
[2023-09-23] MEDS: WARFARIN 1 MG TAB PO ONE (18:00)
[2023-09-24] MEDS: METOPROLOL SUCCINATE (ER) 50 MG TAB.ER.24H PO SCH (09:07)
[2023-09-24 09:47] LABS: ALT 35 U/L (4-49); AST 44 U/L (17-59); African American GFR (CKD) 89 (>60 ml/min/1.73 sqM); Albumin 3.2 g/dL (3.5-5.0); Alkaline Phosphatase 131 U/L (38-126); Anion Gap 7 mmol/L; Blood Urea Nitrogen 37 mg/dL (9-20); Calcium 8.2 mg/dL (8.4-10.2); Carbon Dioxide 33 mmol/L (22-30); Chloride 93 mmol/L (98-107); Glucose 177 mg/dL (74-99); Non-African American GFR(CKD) 77 (>60 ml/min/1.73 sqM); Potassium 4.6 mmol/L (3.5-5.1); Sodium 133 mmol/L (137-145); Total Bilirubin 0.4 mg/dL (0.2-1.3); Total Protein 6.1 g/dL (6.3-8.2)
[2023-09-24 09:50] LABS: Anisocytosis Slight; Basophils % (A) 0 %; Eosinophils % (A) 0 %; HCT 35.8 % (39.0-53.0); HGB 10.5 gm/dL (13.0-17.5); Hypochromasia Marked; Lymphocytes # (A) 0.2 k/uL (1.0-4.8); Lymphocytes % (A) 2 %; MCH 24.1 pg (25.0-35.0); MCHC 29.2 g/dL (31.0-37.0); MCV 82.5 fL (80.0-100.0); Mean Platelet Volume 7.7; Monocytes # (A) 0.5 k/uL (0-1.0); Monocytes % (A) 3 %; Neutrophils # (A) 12.6 k/uL (1.3-7.7); Neutrophils % (A) 95 %; Platelet Count 745 k/uL (150-450); RBC 4.34 m/uL (4.30-5.90); RDW 16.7 % (11.5-15.5); WBC 13.3 k/uL (3.8-10.6)
[2023-09-24 10:04] LABS: Prothrombin Time 29.5 sec (10.0-12.5)
--- NOTE | 2023-09-24 12:51 | P.PN ---
Subjective Progress Note Date: 09/24/23 This is an 87-year-old male with a previous medical history significant for 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 failure on oxygen at home due to severe COPD with FEV1 of 37% of predicted, chronic atrial fibrillation, thoracic aortic aneurysm, abdominal aortic aneurysm, chronic diastolic heart failure, chronic pulmonary hypertension, patient was recently hospitalized at [facility] back in March 2023 after he was admitted for what appears to be a right lower lobe Pseudomonas pneumonia involving the superior segment of the right lower lobe and it showed like a masslike consolidation back on the CT scan and he was treated and his x- ray showed improvement but never had a bronchoscopy, patient is following regularly with Dr. Zapata as an outpatient, patient stated that he has been feeling sick for the last 2 to 4 weeks and when I asked him why he did not show up to the ER or he did not come to the hospital he stated that his daughter was very sick in the hospital and she has been hospitalized for quite some times, she was supposed to be discharged to subacute rehabilitation because she was sick with some sort of pneumonia, and his was split between his daughter and himself, yesterday patient could not breathe anymore, he has been having fever chills coughing yellow-green phlegm production, so patient presented to the emergency department at [facility] with acute shortness breath associated with increased coughing of yellowish and green sputum has been having increased shortness breath over the last 3 days, he was complain of some fever and chills, he also was complaining of increased fatigue tiredness and weight loss, patient was seen and evaluated in emergency room and he was found to have leukocytosis, a 13,000, he also found to have coagulopathy due to his INR being elevated in the range of 9.7 patient had a chest x-ray that did show evidence of right lower lobe pneumonia, bilateral pleural effusion as well as cardiomegaly, patient initially was started on IV Lasix 20 mg IV push every 12 hours, patient has been requiring quite a bit of oxygen, he was seen in consultation by cardiology who recommended to continue current treatment plan, pulmonary medicine saw the patient, underwent CT scan of the chest that showed evidence of superior segment of the right lower lobe consolidative mass rule out malignancy, possibly cavitating pneumonia, he was started on vancomycin as well as Zosyn, sputum culture will be obtained, blood culture continue oxygen support, continue IV steroid in the form of Solu-Medrol, continue nebulized treatment, patient will be admitted to a telemetry unit, will continue to follow-up with the patient very closely. 09/21: Patient sitting up in bed in minimal respiratory distress, he continues to be on oxygen, he continues to be on IV antibiotic in the form of vancomycin as well as Zosyn, laboratory evaluation are better, his INR is down to 1.5, we will restart the patient back on his Coumadin, monitor his INR keep between 2.5 and 3.5, patient continues to have some coughing, yellow to green phlegm production, he has no fever or chills last night, he has no abdominal pain, nausea vomiting or diarrhea, we will continue with current treatment plan, patient has been followed by pulmonary medicine as well as cardiology, will admit the patient to a telemetry unit. 09/22. Patient seen and examined. Patient continues to get short of breath on minimal exertion. Currently on 4 L of oxygen. Patient complaining of cough 09/23. Patient seen and examined. Blood work done this morning showed WBC 13.3, hemoglobin 10.5, platelet count 745, sodium 123, potassium 4.6, BUN 37, crea tinine 0.90, AST 44, ALT 35. Patient continues to be on 4 L of oxygen. Gets short of breath on minimal exertion. REVIEW OF SYSTEMS: CONSTITUTIONAL: No fever, no malaise,. CARDIOVASCULAR: No chest pain, no palpitations, no syncope. PULMONARY: Mentioned above GASTROINTESTINAL: No diarrhea, no nausea, no vomiting, no abdominal pain. NEUROLOGICAL: No headaches, no weakness, PHYSICAL EXAMINATION: GENERAL: The patient is alert and oriented x3, cachectic, chronically ill looking HEENT: Pupils are round and equally reacting to light. EOMI. No scleral icterus. No conjunctival pallor. Normocephalic, atraumatic. No pharyngeal erythema. No thyromegaly. CARDIOVASCULAR: S1 and S2 present. No murmurs, rubs, or gallops. PULMONARY: Coarse breath sound bilaterally, expiratory wheeze audible ABDOMEN: Soft, nontender, nondistended, normoactive bowel sounds. No palpable organomegaly. MUSCULOSKELETAL: No joint swelling or deformity. EXTREMITIES: No cyanosis, clubbing, or pedal edema. NEUROLOGICAL: Gross neurological examination did not reveal any focal deficits. SKIN: No rashes. Assessment and plan 1. acute on chronic hypoxemic respiratory failure due to right lower lobe cavitating pneumonia and possible mass. Monitor vital signs monitor CBC Monitor CMP Continue oxygen supplementation aggressive bronchopulmonary hygiene Continue IV Solu-Medrol Continue IV cefepime Pulmonology following 2. Acute on chronic diastolic heart failure with severe pulmonary hypertension. Strict I's and O's, daily weights, continue IV Lasix. Continue Toprol, Cardizem. Cardiology following 3. Chronic atrial fibrillation with rapid ventricular response. Continue patient on metoprolol 25 mg orally once every day as well as Cardizem 30 mg orally 3 times every day, restart the patient back in his Coumadin, keep INR between 2-3 4. Leukocytosis likely related to right lower lobe cavitating pneumonia in the superior segment. Continue IV antibiotic, continue to monitor the patient CBC over the next 24 hours. 5. Coagulopathy due to Coumadin use and sepsis. Continue pharmacy dose Couma din 6. Thoracic aortic aneurysm. Has been under the care of cardiology CT angiography is up-to-date. Has been stable at 4.5 cm. 7. Abdominal aortic and nursing. Stable. 3.8 cm 8. Bullous pemphigoid. Is stable. 9. DVT prophylaxis. Continue Coumadin 10. GI prophylaxis. Continue patient on Protonix 40 mg orally once every day. Labs and medication were reviewed.. Continue same treatment. Continue with symptomatic treatment. Resume home medication. Monitor labs and vitals. DVT and GI prophylaxis. Further recommendations as per clinical course of the patient Dictation was produced using [employer] dictation software. please excuse any grammatical, word or spelling errors. Objective - Vital Signs Vital signs: Vital Signs Temp 97.5 F L 09/24/23 11:01 Pulse 67 09/24/23 11:01 Resp 20 09/24/23 11:01 BP 98/63 09/24/23 11:01 Pulse Ox 96 09/24/23 11:01 FiO2 Intake & Output 09/23/23 09/24/23 09/24/23 18:59 06:59 18:59 Intake Total 1078 1020 540 Output Total 575 1000 300 Balance 503 20 240 Intake: Oral 1078 1020 540 Output: Urine 575 1000 300 Other: Voiding Method Bedside Commode Bedside Commode Bedside Commode Urinal Urinal Urinal # Voids 1 1 - Labs CBC & Chem 7: 09/24/23 08:24 09/24/23 08:24 Labs: Abnormal Lab Results - Last 24 Hours (Table) 09/24/23 09/24/23 09/24/23 Range/Units 08:24 08:24 08:24 WBC 13.3 H (3.8-10.6) k/uL Hgb 10.5 L (13.0-17.5) gm/dL Hct 35.8 L (39.0-53.0) % MCH 24.1 L (25.0-35.0) pg MCHC 29.2 L (31.0-37.0) g/dL RDW 16.7 H (11.5-15.5) % Plt Count 745 H (150-450) k/uL Neutrophils # 12.6 H (1.3-7.7) k/uL Lymphocytes # 0.2 L (1.0-4.8) k/uL PT 29.5 H (10.0-12.5) sec INR 3.0 H (<1.2) Sodium 133 L (137-145) mmol/L Chloride 93 L (98-107) mmol/L Carbon Dioxide 33 H (22-30) mmol/L BUN 37 H (9-20) mg/dL Glucose 177 H (74-99) mg/dL Calcium 8.2 L (8.4-10.2) mg/dL Alkaline Phosphatase 131 H (38-126) U/L Total Protein 6.1 L (6.3-8.2) g/dL Albumin 3.2 L (3.5-5.0) g/dL Microbiology - Last 24 Hours (Table) 09/21/23 19:13 Blood Culture - Preliminary Blood 09/20/23 18:15 Blood Culture - Preliminary Blood 09/21/23 13:23 Gram Stain - Final Sputum Sputum Culture - Final Serratia marcescens
--- NOTE | 2023-09-24 13:15 | XR ---
EXAMINATION TYPE: XR chest 1V DATE OF EXAM: 09/24/2023 COMPARISON: 09/20/2023 INDICATION: Pneumonia TECHNIQUE: Single frontal view of the chest is obtained. FINDINGS: The heart size is normal. The pulmonary vasculature is normal. A very tiny left apical pneumothorax may be present. Monitoring is recommended Mild infiltrates at the left base. Atelectasis and pneumonia should be considered. The right perihila r consolidation is improving over the interval. Increasing small right pleural effusion may be presen t. Patient's nurse was notified of the minimal pneumothorax at the time of interpretation. IMPRESSION: 1. There may be a tiny left apical pneumothorax developing. Continued monitoring is recommended. 2. Left basilar infiltrate. Correlate for atelectasis or pneumonia. 3. Right perihilar infiltrate diminishing could be improving pneumonia. 4. Developing small right pleural effusion.
[2023-09-24 13:32] LABS: Glucose,Whole Blood 232 mg/dL (70-110)
[2023-09-24] MEDS ORDERED: DEXTROSE 50% SYRINGE 50 ML IVP PRN ×2 (13:32)
[2023-09-24] MEDS: INSULIN ASPART (NovoLOG) 100 UNIT/ML VIAL SQ SCH ×2 (13:41→22:36)
--- NOTE | 2023-09-24 14:34 | P.PN ---
Subjective Progress Note Date: 09/24/23 Patient is a 87-year-old white male with past medical history significant for paroxysmal atrial fibrillation chronically anticoagulated on warfarin, severe oxygen dependent COPD, thoracic aortic aneurysm, and current ongoing tobacco dependence. Patient has reportedly followed in the past with Dr. Zapata. Of note, patient was recently admitted March, with hemoptysis. He was treated for a right-sided pneumonia. CT of the chest at that time demonstrated a 5.7 x 6 cm masslike consolidation within the right lower lung superior segment. Sputum had isolated Pseudomonas aeruginosa. Follow-up chest x-ray showed slight improvement in the masslike consolidation. No bronchoscopy was done at this time. Patient returned to the emergency department yesterday evening complaining of 3 to 4 days of worsening exertional dyspnea, chest tightness, and wheezing. He does endorse a productive cough with yellow sputum production. Denies sick contacts or recent travel. Denies any fevers. Denies any chest pain. Denies any hemoptysis. His INR was elevated at 9.4. Denies any bleeding at all. He does do continue to smoke a couple cigarettes every couple days. Reportedly he cannot even walk to the bathroom without becoming severely dyspneic. He has noted increased lower extremity swelling. He is on torsemide outpatient and reportedly voids often. Chest x-ray done on admission shows a opacification of the posterior right lung. This needs to be evaluated for possible lung mass. Patient denies any prior history of cancer. Does admit a 30 pound weight loss over the last 6 to 9 months. No change in appetite. Will need to follow-up chest CT with contrast. May need bronchoscopy and airway examination. CBC on arrival: WBC count 13, hemoglobin 10.4, hematocrit 35.2, platelets 534. BMP on arrival: Sodium 132, potassium 4.3, chloride 95, serum bicarb 32, BUN 28, creatinine 0.79, glucose 143. Troponins less than 0.012. NT proBNP 2280. EKG shows atrial fibrillation with rapid ventricular rate. No obvious ischemic changes. Most recent echocardiogram from March, estimated preserved left ventricular ejection fraction of 55 to 60% along with some mild to moderate mitral regurgitation and mild aortic regurgitation. Patient is currently sitting up in bed, on 4 L/min nasal cannula, in no acute distress. SpO2 is 99%. Heart rhythm on bedside monitor still appears atrial fi brillation. Rate is currently 140 bpm. Cardiology is also consulted and is elected to place this patient on Cardizem infusion. Nurses are working on getting this medication from pharmacy. Patient denies any chest pain, lightheadedness, heart palpitations. Denies nausea. Not diaphoretic. Afebrile. Remaining vital signs are stable. Patient is a 87-year-old white male with past medical history significant for paroxysmal atrial fibrillation chronically anticoagulated on warfarin, severe oxygen dependent COPD, thoracic aortic aneurysm, and current ongoing tobacco dependence. Patient has reportedly followed in the past with Dr. Zapata. Of note, patient was recently admitted March, with hemoptysis. He was treated for a right-sided pneumonia. CT of the chest at that time demonstrated a 5.7 x 6 cm masslike consolidation within the right lower lung superior segment. Sputum had isolated Pseudomonas aeruginosa. Follow-up chest x-ray showed slight improvement in the masslike consolidation. No bronchoscopy was done at this time. Patient returned to the emergency department yesterday evening complaining of 3 to 4 days of worsening exertional dyspnea, chest tightness, and wheezing. He does endorse a productive cough with yellow sputum production. Denies sick contacts or recent travel. Denies any fevers. Denies any chest pain. Denies any hemoptysis. His INR was elevated at 9.4. Denies any bleeding at all. He does do continue to smoke a couple cigarettes every couple days. Reportedly he cannot even walk to the bathroom without becoming severely dyspneic. He has noted increased lower extremity swelling. He is on torsemide outpatient and reportedly voids often. Chest x-ray done on admission shows a opacification of the posterior right lung. This needs to be evaluated for possible lung mass. Patient denies any prior history of cancer. Does admit a 30 pound weight loss over the last 6 to 9 months. No change in appetite. Will need to follow-up chest CT with contrast. May need bronchoscopy and airway examination. CBC on arrival: WBC count 13, hemoglobin 10.4, hematocrit 35.2, platelets 534. BMP on arrival: Sodium 132, potassium 4.3, chloride 95, serum bicarb 32, BUN 28, creatinine 0.79, glucose 143. Troponins less than 0.012. NT proBNP 2280. EKG shows atrial fibrillation with rapid ventricular rate. No obvious ischemic changes. Most recent echocardiogram from March, estimated preserved left ventricular ejection fraction of 55 to 60% along with some mild to moderate mitral regurgitation and mild aortic regurgitation. Patient is currently sitting up in bed, on 4 L/min nasal cannula, in no acute distress. SpO2 is 99%. Heart rhythm on bedside monitor still appears atrial fibrillation. Rate is currently 140 bpm. Cardiology is also consulted and is elected to place this patient on Cardizem infusion. Nurses are working on ge tting this medication from pharmacy. Patient denies any chest pain, lightheadedness, heart palpitations. Denies nausea. Not diaphoretic. Afebrile. Remaining vital signs are stable. 09/22/2023, patient is being seen for a follow-up. Patient is still producing cough with copious amount of thick purulent respiratory secretions. He remains on a combination of Zosyn and vancomycin. Hemodynamically stable. Feels slightly improved compared to yesterday. He is also on DuoNeb nebulized treatments [id number] and IV Solu-Medrol dose of 60 mg every 6 hours. The white cell count is at 17.4 with a hemoglobin 10.7 and a platelet count of 847. Patient was given vitamin K and INR dropped down to 1.5. BUN is at 30 mg time 0.8 and sodium levels at 134 and a potassium level of 4.2. Procalcitonin level was 0.11. Patient is awake and alert and currently is on 40 Suboxone by nasal cannula with a pulse ox of 97%. Chronically debilitated and weak and seems to be quite cachectic with a body mass index of 16.2. The blood cultures are negative. Sputum culture still pending. 09/23/2023, the patient is being seen for a follow-up. The patient is being treated for an extensive right lung pneumonia. He remains on IV antibiotics and the patient is currently on IV cefepime. Cultures from the sputum showed Serratia marcescens. The blood culture has been negative x 2. The white cell count is at 13.5 with a hemoglobin 10.2. Platelet count is 765. INR is 1.9. BUN 35 with a creatinine of 0.8 and sodium levels at 135. The patient seems to be less short of breath. Nevertheless, he has significant ongoing respiratory insufficiency. He has ongoing cough, unable to bring up much of sputum as he feels that the sputum is quite trapped in his lungs. Procalcitonin level is at 0.11. No altered mentation. Oxygen requirement remains at 3 L with a pulse ox of 99 to 100%. He remains in atrial fibrillation. 09/24/2023, the patient is being seen for a follow-up. The patient has an ex tensive right lung pneumonia and a sputum culture was positive for Serratia marcescens. The patient is currently on IV cefepime. Essentially unchanged compared to yesterday. Continues to have thick runny sputum which she is able to cough. He is also using incentive spirometer. He has advanced COPD and his condition is quite debilitated. Not a good candidate for bronchoscopy at this point in time. WBC count at 13.3 with a hemoglobin 10.5 and a platelet count of 745. INR is at 3. BUN is 37 with a creatinine of 0.9 and sodium levels at 133. The patient is currently on 4 L with a pulse ox of 96%. Appetite is adequate. Repeat chest x-ray findings from today shows stable right perihilar/lower lobe pulmonary infiltrate/pneumonia which probably slightly improved compared to the chest x-ray that was done at time of admission. There is background COPD. Objective - Vital Signs Vital signs: Vital Signs Temp 97.5 F L 09/24/23 11:01 Pulse 108 H 09/24/23 11:28 Resp 20 09/24/23 11:01 BP 98/63 09/24/23 11:01 Pulse Ox 96 09/24/23 11:01 FiO2 Intake & Output 09/23/23 09/24/23 09/24/23 18:59 06:59 18:59 Intake Total 1078 1020 540 Output Total 575 1000 300 Balance 503 20 240 Intake: Oral 1078 1020 540 Output: Urine 575 1000 300 Other: Voiding Method Bedside Commode Bedside Commode Bedside Commode Urinal Urinal Urinal # Voids 1 1 - Exam GENERAL EXAM: Alert, frail 87-year-old white male, comfortable in no apparent distress. The patient is currently on 4 L of O2 nasal cannula and he carries a body mass index of 16.2 HEAD: Normocephalic and atraumatic EYES: Normal reaction of pupils, equal size. NOSE: Clear with pink turbinates. THROAT: No erythema or exudates. NECK: No masses, no JVD. CHEST: No chest wall deformity. LUNGS: Equal air entry with markedly diminished lung sounds throughout. No crackles, wheezes, rhonchi. No conversational dyspnea or accessory muscle use.. CVS: S1 and S2 normal with no audible murmur, irregular rhythm. No extra heart sounds ABDOMEN: No hepatosplenomegaly, active bowel sounds, no guarding or rigidity. SPINE: No scoliosis or deformity SKIN: No rashes CENTRAL NERVOUS SYSTEM: No focal deficits, tone is normal in all 4 extremities. EXTREMITIES: There bilateral lower extremity pitting edema. No clubbing, or cyanosis. Peripheral pulses are intact - Labs CBC & Chem 7: 09/24/23 08:24 09/24/23 08:24 Labs: Abnormal Lab Results - Last 24 Hours (Table) 09/24/23 09/24/23 09/24/23 Range/Units 08:24 08:24 08:24 WBC 13.3 H (3.8-10.6) k/uL Hgb 10.5 L (13.0-17.5) gm/dL Hct 35.8 L (39.0-53.0) % MCH 24.1 L (25.0-35.0) pg MCHC 29.2 L (31.0-37.0) g/dL RDW 16.7 H (11.5-15.5) % Plt Count 745 H (150-450) k/uL Neutrophils # 12.6 H (1.3-7.7) k/uL Lymphocytes # 0.2 L (1.0-4.8) k/uL PT 29.5 H (10.0-12.5) sec INR 3.0 H (<1.2) Sodium 133 L (137-145) mmol/L Chloride 93 L (98-107) mmol/L Carbon Dioxide 33 H (22-30) mmol/L BUN 37 H (9-20) mg/dL Glucose 177 H (74-99) mg/dL Calcium 8.2 L (8.4-10.2) mg/dL Alkaline Phosphatase 131 H (38-126) U/L Total Protein 6.1 L (6.3-8.2) g/dL Albumin 3.2 L (3.5-5.0) g/dL Microbiology - Last 24 Hours (Table) 09/21/23 19:13 Blood Culture - Preliminary Blood 09/20/23 18:15 Blood Culture - Preliminary Blood 09/21/23 13:23 Gram Stain - Final Sputum Sputum Culture - Final Serratia marcescens Assessment and Plan Assessment: Acute on chronic dyspnea, and hypoxic respiratory failure and the patient is currently on 4 L of oxygen by nasal cannula Right-sided necrotizing pneumonia. I reviewed the series of CAT scans were done and the patient from December 2022, March 2023 and the most recent CAT scan of the chest that was done on 09/21/2023. It seems that the patient developed a cavitating consolidation of the right lower lobe back in March 2023. This was treated in the hospital with antibiotics. Subsequent x-rays were not done. The patient is coming in with worsening shortness of breath, coughing up copious amount of brown and purulent respiratory secretions. A CAT scan of the chest was done and again that showed diffuse emphysematous changes along with scarring and bronchiectasis. The patient has also peribronchial thickening consistent with COPD. There is a patchy area of consolidation/atelectasis in the right lower lobe and some irregular opacities in the left upper lobe and the left lower lobe associated with atelectasis. Patient is currently on IV cefepime. Procalcitonin level is at 0.11. Sputum culture has shown Serratia marcescens. Repeat chest x-ray shows stable/slightly improved right lung/perihilar consolidation/pneumonia. Unintentional weight loss, reportedly lost 30 pounds over a 6 to 9-month timeframe. History of hemoptysis, currently inactive and stable History of left lower lung nodule, followed up outpatient Chronic ongoing tobacco dependence, still smokes 2 to 3 cigarettes every couple days. Severe chronic obstructive pulmonary disease, with an FEV1 37% of predicted Chronic hypoxemic respiratory failure, secondary to above, normally maintained on 4 L/min nasal cannula while at home. Acute leukocytosis Atrial fibrillation with rapid ventricular rate, And the patient was taken off the Cardizem drip and the patient is currently on oral Cardizem 30 mg p.o. 3 times daily and INR is being monitored Supratherapeutic INR, recovered and INR is at 3, therapeutic History of thoracic aortic aneurysm Bilateral lower extremity edema Plan: Continue oxygen for L/min nasal cannula and titrated down to maintain saturation above 90% Continue bronchodilators Continue IV Solu-Medrol Continue IV cefepime Repeat chest x-ray was noted from today Encourage using the a flutter valve Continue Mucinex DM twice a day Echocardiogram was completed and the results are still pending for now We will monitor PT/INR Metoprolol and Cardizem for rate control Dietary supplementation Blood cultures still pending, negative thus far Cardiology consultation Patient is chronically debilitated and carries a body mass index of 16.2. Overall prognosis poor. Will continue to follow make further recommendations based on the progress.
--- NOTE | 2023-09-24 16:03 | P.PN ---
Subjective Progress Note Date: 09/24/23 Reason for Consult (text): Pulmonary edema History of present illness: History of present illness: This is an 87-year-old male patient of Dr. Cardenas with past medical history of hypertension, permanent atrial fibrillation on Coumadin, aortic aneurysm, diastolic heart failure, chronic lower extremity edema, COPD, chronic hypoxic respiratory failure on home O2, mitral regurgitation. We have been asked to evaluate the patient for pulmonary edema. Patient complains of shortness of breath for 2 to 3 days along with cough and sputum production. No fever or chills. No lower extremity edema change. He always has some. He states he has been taking his medications but seems to be confused about some of them. Patient has been started on IV Lasix 20 mg every 12 hours along with IV Solu- Medrol, IV antibiotics, and nebulizer treatments. Patient is seen today in the emergency center waiting for bed on the cardiac stepdown unit. EKG #1 atrial fibrillation with ventricular rate of 113 bpm, #2 atrial fibrillation with ventricular rate of 112 bpm Chest x-ray: Opacification posterior right lung. Workup for mass is recommended. CT of the chest reveals pleural effusions with associated atelectasis. Dense superior segment right lower lobe consolidation versus mass with possible fluid component. Redemonstration of L pace that he is in the left upper lobe and left lower lobe not changed. Diffuse emphysematous changes. Unchanged ascending aortic aneurysm. Laboratory studies: WBC 13, hemoglobin 10.4, platelet count 534. INR 9.4. Sodium 132, potassium 4.3, chloride 95, CO2 32, BUN 28 creatinine 0.79. Glucose 143. Alkaline phosphatase 159. Troponin negative x 1. proBNP 2280. Procalcitonin 0.11. Home cardiac medications: Flecainide 50 mg every 12 hours, spironolactone 25 mg daily, Demadex 20 mg daily, Coumadin 2.5 mg every day except for Monday is 5 mg. Echocardiogram performed 03/22/2023 reveals EF of 55 to 60%. Mild to moderate mitral regurgitation. Mild aortic regurgitation. 09/21 Patient is seen today in the emergency center. Blood pressure 121/102, heart rate 138, pulse ox 96% on 4 L nasal cannula. Patient has been maintained on IV Lasix 20 mg every 12 hours. Telemetry is atrial flutter with rate in the 130s a nd 140s. Patient is not on any rate control medications. Patient is on heparin drip. Yesterday, patient received 1 dose of vitamin K 5 mg for INR of 10. Blood work for this morning is not available at the time of this dictation. Discussed with patient option of starting him on Eliquis versus returning to Coumadin. He is willing to do this. We will send a prescription through to his pharmacy to check coverage. 09/22 Yesterday, Dr. Recinos discussed with the patient option of utilizing Eliquis versus Coumadin and patient was open to this. [facility] was called this morning and patient does not have any prescription coverage. Patient will be maintained on Coumadin at this time pharmacy dosing. INR today is 1.9. Other lab work reveals hemoglobin of 10.2, WBC 13.5. Sodium 135, BUN 35 creatinine 0.83. Telemetry is atrial fibrillation at heart rate of 116. Blood pressure 145/97, pulse ox 96% on 4 L nasal cannula. Yesterday patient was started on Cardizem 30 mg 3 times daily. Patient is maintained on IV Lasix 20 mg every 12 hours. Patient continues to have labored breathing and patient states that Dr. Palm is planning for bronchoscopy. Patient is asking about event monitor report that was done from the office. This will be obtained and reviewed with the patient tomorrow if available. 09/23 Blood pressure 123/71, heart rate is in the 80s, pulse ox 100% on 4 L nasal cannula. Repeat blood work reveals WBC 13.3, hemoglobin 10.5. INR 3. BUN 37 creatinine 0.9. Sodium 133 and potassium 4.6. Repeat chest x-ray reveals Patient had event monitor from 08/16 - 08/20/2023 which revealed primary rhythm was atrial fibrillation/flutter with average heart rate 103, atrial fibrillation or flutter burden 100%. Reviewed results with the patient and his at [facility]. Physical examination: Gen: This is an 87-year-old male in no acute distress VS: reviewed HEENT: Head is atraumatic, normocephalic. Pupils equal, round. Sclerae is anicteric. NECK: Supple. No JVD. LUNGS: Diminished breath sounds bilaterally. + accessory muscle usage, + intercostal retractions. HEART: Irregular rate and rhythm. No murmur. ABDOMEN: Soft No tenderness. EXTREMITIES: Bilateral 2+ pedal edema. No calf tenderness. NEUROLOGICAL: Patient is awake, alert and oriented x3. Assessment: Acute on chronic hypoxic respiratory failure secondary to COPD, acute on chronic diastolic heart failure, pleural effusions Permanent atrial fibrillation, currently rate controlled Atrial flutter with RVR Chronic diastolic heart failure Thoracic aortic aneurysm Lung nodule Hypercoagulopathy secondary to Coumadin status post vitamin K 09/20 Plan: Continue patient's home cardiac medications Pharmacy dosing Coumadin, patient is unable to afford Eliquis because he does not have prescription coverage Continue patient on Cardizem 60 mg 3 times daily, continue Toprol XL 25 mg daily Continue IV Lasix 20 mg every 12 hours Monitor HELIO, daily weights, electrolytes and renal function No need to repeat echocardiogram Further recommendations to follow based upon clinical course Nurse practitioner note has been reviewed, I agree with documented findings and plan of care. Patient was seen and examined. Objective - Vital Signs Vital signs: Vital Signs Temp 97.4 F L 09/24/23 08:59 Pulse 113 H 09/24/23 09:07 Resp 20 09/24/23 09:00 BP 123/71 09/24/23 08:59 Pulse Ox 100 09/24/23 08:59 FiO2 Intake & Output 09/23/23 09/24/23 09/24/23 18:59 06:59 18:59 Intake Total 1078 1020 540 Output Total 575 1000 300 Balance 503 20 240 Intake: Oral 1078 1020 540 Output: Urine 575 1000 300 Other: Voiding Method Bedside Commode Bedside Commode Bedside Commode Urinal Urinal Urinal # Voids 1 1 - Labs CBC & Chem 7: 09/24/23 08:24 09/24/23 08:24 Labs: Abnormal Lab Results - Last 24 Hours (Table) 09/24/23 09/24/23 09/24/23 Range/Units 08:24 08:24 08:24 WBC 13.3 H (3.8-10.6) k/uL Hgb 10.5 L (13.0-17.5) gm/dL Hct 35.8 L (39.0-53.0) % MCH 24.1 L (25.0-35.0) pg MCHC 29.2 L (31.0-37.0) g/dL RDW 16.7 H (11.5-15.5) % Plt Count 745 H (150-450) k/uL Neutrophils # 12.6 H (1.3-7.7) k/uL Lymphocytes # 0.2 L (1.0-4.8) k/uL PT 29.5 H (10.0-12.5) sec INR 3.0 H (<1.2) Sodium 133 L (137-145) mmol/L Chloride 93 L (98-107) mmol/L Carbon Dioxide 33 H (22-30) mmol/L BUN 37 H (9-20) mg/dL Glucose 177 H (74-99) mg/dL Calcium 8.2 L (8.4-10.2) mg/dL Alkaline Phosphatase 131 H (38-126) U/L Total Protein 6.1 L (6.3-8.2) g/dL Albumin 3.2 L (3.5-5.0) g/dL Microbiology - Last 24 Hours (Table) 09/21/23 19:13 Blood Culture - Preliminary Blood 09/20/23 18:15 Blood Culture - Preliminary Blood 09/21/23 13:23 Gram Stain - Final Sputum Sputum Culture - Final Serratia marcescens
[2023-09-24] MEDS: WARFARIN 0.5 MG TAB PO ONE (17:15)
[2023-09-24 22:04] LABS: Glucose,Whole Blood 140 mg/dL (70-110)
[2023-09-25 02:03] LABS: Glucose,Whole Blood 151 mg/dL (70-110)
[2023-09-25 06:42] LABS: Glucose,Whole Blood 122 mg/dL (70-110)
[2023-09-25 07:03] LABS: INR 3.5 (<1.2)
[2023-09-25 07:08] LABS: African American GFR (CKD) >90 (>60 ml/min/1.73 sqM); Non-African American GFR(CKD) 86 (>60 ml/min/1.73 sqM)
[2023-09-25 10:19] LABS: Glucose,Whole Blood 183 mg/dL (70-110)
--- NOTE | 2023-09-25 13:14 | P.PN ---
Subjective Progress Note Date: 09/25/23 Reason for Consult (text): Pulmonary edema History of present illness: History of present illness: This is an 87-year-old male patient of Dr. Cardenas with past medical history of hypertension, permanent atrial fibrillation on Coumadin, aortic aneurysm, diastolic heart failure, chronic lower extremity edema, COPD, chronic hypoxic respiratory failure on home O2, mitral regurgitation. We have been asked to evaluate the patient for pulmonary edema. Patient complains of shortness of breath for 2 to 3 days along with cough and sputum production. No fever or chills. No lower extremity edema change. He always has some. He states he has been taking his medications but seems to be confused about some of them. Patient has been started on IV Lasix 20 mg every 12 hours along with IV Solu- Medrol, IV antibiotics, and nebulizer treatments. Patient is seen today in the emergency center waiting for bed on the cardiac stepdown unit. EKG #1 atrial fibrillation with ventricular rate of 113 bpm, #2 atrial fibrillation with ventricular rate of 112 bpm Chest x-ray: Opacification posterior right lung. Workup for mass is recommended. CT of the chest reveals pleural effusions with associated atelectasis. Dense superior segment right lower lobe consolidation versus mass with possible fluid component. Redemonstration of L pace that he is in the left upper lobe and left lower lobe not changed. Diffuse emphysematous changes. Unchanged ascending aortic aneurysm. Laboratory studies: WBC 13, hemoglobin 10.4, platelet count 534. INR 9.4. Sodium 132, potassium 4.3, chloride 95, CO2 32, BUN 28 creatinine 0.79. Glucose 143. Alkaline phosphatase 159. Troponin negative x 1. proBNP 2280. Procalcitonin 0.11. Home cardiac medications: Flecainide 50 mg every 12 hours, spironolactone 25 mg daily, Demadex 20 mg daily, Coumadin 2.5 mg every day except for Monday is 5 mg. Echocardiogram performed 03/22/2023 reveals EF of 55 to 60%. Mild to moderate mitral regurgitation. Mild aortic regurgitation. 09/21 Patient is seen today in the emergency center. Blood pressure 121/102, heart rate 138, pulse ox 96% on 4 L nasal cannula. Patient has been maintained on IV Lasix 20 mg every 12 hours. Telemetry is atrial flutter with rate in the 130s a nd 140s. Patient is not on any rate control medications. Patient is on heparin drip. Yesterday, patient received 1 dose of vitamin K 5 mg for INR of 10. Blood work for this morning is not available at the time of this dictation. Discussed with patient option of starting him on Eliquis versus returning to Coumadin. He is willing to do this. We will send a prescription through to his pharmacy to check coverage. 09/22 Yesterday, Dr. Recinos discussed with the patient option of utilizing Eliquis versus Coumadin and patient was open to this. [facility] was called this morning and patient does not have any prescription coverage. Patient will be maintained on Coumadin at this time pharmacy dosing. INR today is 1.9. Other lab work reveals hemoglobin of 10.2, WBC 13.5. Sodium 135, BUN 35 creatinine 0.83. Telemetry is atrial fibrillation at heart rate of 116. Blood pressure 145/97, pulse ox 96% on 4 L nasal cannula. Yesterday patient was started on Cardizem 30 mg 3 times daily. Patient is maintained on IV Lasix 20 mg every 12 hours. Patient continues to have labored breathing and patient states that Dr. Palm is planning for bronchoscopy. Patient is asking about event monitor report that was done from the office. This will be obtained and reviewed with the patient tomorrow if available. 09/23 Blood pressure 123/71, heart rate is in the 80s, pulse ox 100% on 4 L nasal cannula. Repeat blood work reveals WBC 13.3, hemoglobin 10.5. INR 3. BUN 37 creatinine 0.9. Sodium 133 and potassium 4.6. Repeat chest x-ray reveals Patient had event monitor from 08/16 - 08/20/2023 which revealed primary rhythm was atrial fibrillation/flutter with average heart rate 103, atrial fibrillation or flutter burden 100%. Reviewed results with the patient and his at [facility]. 09/24 The patient states that his breathing is okay. He does have chronic shortness of breath. Blood pressure 130/75, heart rate 96, pulse ox 100% on 4 L nasal cannula. He is on home O2. INR today is at 3.5. Creatinine 0.7. Patient continues to have lower extremity edema but has refused GERARD hose. Patient's nurse will try to apply aline wraps. He is maintained on IV Lasix 20 mg twice daily. Physical examination: Gen: This is an 87-year-old male in no acute distress VS: reviewed HEENT: Head is atraumatic, normocephalic. Pupils equal, round. Sclerae is anicteric. NECK: Supple. No JVD. LUNGS: Diminished breath sounds bilaterally. + accessory muscle usage, + intercostal retractions. HEART: Irregular rate and rhythm. No murmur. ABDOMEN: Soft No tenderness. EXTREMITIES: Bilateral 2+ pedal edema. No calf tenderness. NEUROLOGICAL: Patient is awake, alert and oriented x3. Assessment: Acute on chronic hypoxic respiratory failure secondary to COPD, acute on chronic diastolic heart failure, pleural effusions Permanent atrial fibrillation, currently rate controlled Atrial flutter with RVR Chronic diastolic heart failure Thoracic aortic aneurysm Lung nodule Hypercoagulopathy secondary to Coumadin status post vitamin K 09/20 Plan: Continue patient's home cardiac medications Pharmacy dosing Coumadin, patient is unable to afford Eliquis because he does not have prescription coverage Continue patient on Cardizem 60 mg 3 times daily, continue Toprol XL 25 mg daily Continue IV Lasix 20 mg every 12 hours Monitor HELIO, daily weights, electrolytes and renal function No need to repeat echocardiogram Further recommendations to follow based upon clinical course Nurse practitioner note has been reviewed, I agree with documented findings and plan of care. Patient was seen and examined. Objective - Vital Signs Vital signs: Vital Signs Temp 97.4 F L 09/25/23 09:02 Pulse 92 09/25/23 10:56 Resp 22 09/25/23 09:02 BP 138/75 09/25/23 09:02 Pulse Ox 100 09/25/23 09:02 FiO2 Intake & Output 09/24/23 09/25/23 09/25/23 18:59 06:59 18:59 Intake Total 1260 480 Output Total 750 1050 700 Balance 510 -1050 -220 Intake: Oral 1260 480 Output: Urine 750 1050 700 Other: Voiding Method Bedside Commode Bedside Commode Bedside Commode Urinal Urinal Urinal # Voids 1 - Labs CBC & Chem 7: 09/24/23 08:24 09/25/23 06:36 Labs: Abnormal Lab Results - Last 24 Hours (Table) 09/24/23 09/24/23 09/25/23 Range/Units 13:31 22:03 02:01 PT (10.0-12.5) sec INR (<1.2) POC Glucose (mg/dL) 232 H 140 H 151 H (70-110) mg/dL 09/25/23 09/25/23 09/25/23 Range/Units 06:36 06:41 10:17 PT 34.0 H (10.0-12.5) sec INR 3.5 H (<1.2) POC Glucose (mg/dL) 122 H 183 H (70-110) mg/dL Microbiology - Last 24 Hours (Table) 09/21/23 19:13 Blood Culture - Preliminary Blood
[2023-09-25 14:03] LABS: Glucose,Whole Blood 189 mg/dL (70-110)
--- NOTE | 2023-09-25 14:04 | P.PN ---
Subjective Progress Note Date: 09/25/23 This is an 87-year-old male with a previous medical history significant for 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 failure on oxygen at home due to severe COPD with FEV1 of 37% of predicted, chronic atrial fibrillation, thoracic aortic aneurysm, abdominal aortic aneurysm, chronic diastolic heart failure, chronic pulmonary hypertension, patient was recently hospitalized at [facility] back in March 2023 after he was admitted for what appears to be a right lower lobe Pseudomonas pneumonia involving the superior segment of the right lower lobe and it showed like a masslike consolidation back on the CT scan and he was treated and his x- ray showed improvement but never had a bronchoscopy, patient is following regularly with Dr. Zapata as an outpatient, patient stated that he has been feeling sick for the last 2 to 4 weeks and when I asked him why he did not show up to the ER or he did not come to the hospital he stated that his daughter was very sick in the hospital and she has been hospitalized for quite some times, she was supposed to be discharged to subacute rehabilitation because she was sick with some sort of pneumonia, and his was split between his daughter and himself, yesterday patient could not breathe anymore, he has been having fever chills coughing yellow-green phlegm production, so patient presented to the emergency department at [facility] with acute shortness breath associated with increased coughing of yellowish and green sputum has been having increased shortness breath over the last 3 days, he was complain of some fever and chills, he also was complaining of increased fatigue tiredness and weight loss, patient was seen and evaluated in emergency room and he was found to have leukocytosis, a 13,000, he also found to have coagulopathy due to his INR being elevated in the range of 9.7 patient had a chest x-ray that did show evidence of right lower lobe pneumonia, bilateral pleural effusion as well as cardiomegaly, patient initially was started on IV Lasix 20 mg IV push every 12 hours, patient has been requiring quite a bit of oxygen, he was seen in consultation by cardiology who recommended to continue current treatment plan, pulmonary medicine saw the patient, underwent CT scan of the chest that showed evidence of superior segment of the right lower lobe consolidative mass rule out malignancy, possibly cavitating pneumonia, he was started on vancomycin as well as Zosyn, sputum culture will be obtained, blood culture continue oxygen support, continue IV steroid in the form of Solu-Medrol, continue nebulized treatment, patient will be admitted to a telemetry unit, will continue to follow-up with the patient very closely. 09/21: Patient sitting up in bed in minimal respiratory distress, he continues to be on oxygen, he continues to be on IV antibiotic in the form of vancomycin as well as Zosyn, laboratory evaluation are better, his INR is down to 1.5, we will restart the patient back on his Coumadin, monitor his INR keep between 2.5 and 3.5, patient continues to have some coughing, yellow to green phlegm production, he has no fever or chills last night, he has no abdominal pain, nausea vomiting or diarrhea, we will continue with current treatment plan, patient has been followed by pulmonary medicine as well as cardiology, will admit the patient to a telemetry unit. 09/22. Patient seen and examined. Patient continues to get short of breath on minimal exertion. Currently on 4 L of oxygen. Patient complaining of cough 09/23. Patient seen and examined. Blood work done this morning showed WBC 13.3, hemoglobin 10.5, platelet count 745, sodium 123, potassium 4.6, BUN 37, crea tinine 0.90, AST 44, ALT 35. Patient continues to be on 4 L of oxygen. Gets short of breath on minimal exertion. . Patient seen and examined. Continues to be on 4 L of oxygen. Continues to get tachypneic on exertion. States he is still feeling weak. REVIEW OF SYSTEMS: CONSTITUTIONAL: No fever, no malaise,. CARDIOVASCULAR: No chest pain, no palpitations, no syncope. PULMONARY: Mentioned above GASTROINTESTINAL: No diarrhea, no nausea, no vomiting, no abdominal pain. NEUROLOGICAL: No headaches, no weakness, PHYSICAL EXAMINATION: GENERAL: The patient is alert and oriented x3, cachectic, chronically ill looking HEENT: Pupils are round and equally reacting to light. EOMI. No scleral icterus. No conjunctival pallor. Normocephalic, atraumatic. No pharyngeal erythema. No thyromegaly. CARDIOVASCULAR: S1 and S2 present. No murmurs, rubs, or gallops. PULMONARY: Coarse breath sound bilaterally, expiratory wheeze audible ABDOMEN: Soft, nontender, nondistended, normoactive bowel sounds. No palpable organomegaly. MUSCULOSKELETAL: No joint swelling or deformity. EXTREMITIES: No cyanosis, clubbing, or pedal edema. NEUROLOGICAL: Gross neurological examination did not reveal any focal deficits. SKIN: No rashes. Assessment and plan 1. acute on chronic hypoxemic respiratory failure due to right lower lobe cavitating pneumonia and possible mass. Monitor vital signs monitor CBC Monitor CMP Continue oxygen supplementation aggressive bronchopulmonary hygiene Continue IV Solu-Medrol Continue IV cefepime Pulmonology following 2. Acute on chronic diastolic heart failure with severe pulmonary hypertension. Strict I's and O's, daily weights, continue IV Lasix. Continue Toprol, Cardizem. Cardiology following 3. Chronic atrial fibrillation with rapid ventricular response. Continue patient on metoprolol 25 mg orally once every day as well as Cardizem 30 mg orally 3 times every day, continue pharmacy dose Coumadin 4. Leukocytosis likely related to right lower lobe cavitating pneumonia in the superior segment. Continue IV antibiotic, continue to monitor the patient CBC over the next 24 hours. 5. Coagulopathy due to Coumadin use and sepsis. Continue pharmacy dose Coumadin 6. Thoracic aortic aneurysm. Has been under the care of cardiology CT angiography is up-to-date. Has been stable at 4.5 cm. 7. Abdominal aortic and nursing. Stable. 3.8 cm 8. Bullous pemphigoid. Is stable. 9. DVT prophylaxis. Continue Coumadin 10. GI prophylaxis. Continue patient on Protonix 40 mg orally once every day. Labs and medication were reviewed.. Continue same treatment. Continue with symptomatic treatment. Resume home medication. Monitor labs and vitals. DVT and GI prophylaxis. Further recommendations as per clinical course of the patient Dictation was produced using [employer] dictation software. please excuse any grammatical, word or spelling errors. Objective - Vital Signs Vital signs: Vital Signs Temp 97.4 F L 09/25/23 09:02 Pulse 96 09/25/23 11:07 Resp 22 09/25/23 09:02 BP 138/75 09/25/23 09:02 Pulse Ox 100 09/25/23 09:02 FiO2 Intake & Output 09/24/23 09/25/23 09/25/23 18:59 06:59 18:59 Intake Total 1260 480 Output Total 750 1050 700 Balance 510 -1050 -220 Intake: Oral 1260 480 Output: Urine 750 1050 700 Other: Voiding Method Bedside Commode Bedside Commode Bedside Commode Urinal Urinal Urinal # Voids 1 - Labs CBC & Chem 7: 09/24/23 08:24 09/25/23 06:36 Labs: Abnormal Lab Results - Last 24 Hours (Table) 09/24/23 09/24/23 09/25/23 Range/Units 13:31 22:03 02:01 PT (10.0-12.5) sec INR (<1.2) POC Glucose (mg/dL) 232 H 140 H 151 H (70-110) mg/dL 09/25/23 09/25/23 09/25/23 Range/Units 06:36 06:41 10:17 PT 34.0 H (10.0-12.5) sec INR 3.5 H (<1.2) POC Glucose (mg/dL) 122 H 183 H (70-110) mg/dL Microbiology - Last 24 Hours (Table) 09/21/23 19:13 Blood Culture - Preliminary Blood
--- NOTE | 2023-09-25 14:53 | P.PN ---
Subjective Progress Note Date: 09/25/23 Patient is a 87-year-old white male with past medical history significant for paroxysmal atrial fibrillation chronically anticoagulated on warfarin, severe oxygen dependent COPD, thoracic aortic aneurysm, and current ongoing tobacco dependence. Patient has reportedly followed in the past with Dr. Zapata. Of note, patient was recently admitted March, with hemoptysis. He was treated for a right-sided pneumonia. CT of the chest at that time demonstrated a 5.7 x 6 cm masslike consolidation within the right lower lung superior segment. Sputum had isolated Pseudomonas aeruginosa. Follow-up chest x-ray showed slight improvement in the masslike consolidation. No bronchoscopy was done at this time. Patient returned to the emergency department yesterday evening complaining of 3 to 4 days of worsening exertional dyspnea, chest tightness, and wheezing. He does endorse a productive cough with yellow sputum production. Denies sick contacts or recent travel. Denies any fevers. Denies any chest pain. Denies any hemoptysis. His INR was elevated at 9.4. Denies any bleeding at all. He does do continue to smoke a couple cigarettes every couple days. Reportedly he cannot even walk to the bathroom without becoming severely dyspneic. He has noted increased lower extremity swelling. He is on torsemide outpatient and reportedly voids often. Chest x-ray done on admission shows a opacification of the posterior right lung. This needs to be evaluated for possible lung mass. Patient denies any prior history of cancer. Does admit a 30 pound weight loss over the last 6 to 9 months. No change in appetite. Will need to follow-up chest CT with contrast. May need bronchoscopy and airway examination. CBC on arrival: WBC count 13, hemoglobin 10.4, hematocrit 35.2, platelets 534. BMP on arrival: Sodium 132, potassium 4.3, chloride 95, serum bicarb 32, BUN 28, creatinine 0.79, glucose 143. Troponins less than 0.012. NT proBNP 2280. EKG shows atrial fibrillation with rapid ventricular rate. No obvious ischemic changes. Most recent echocardiogram from March, estimated preserved left ventricular ejection fraction of 55 to 60% along with some mild to moderate mitral regurgitation and mild aortic regurgitation. Patient is currently sitting up in bed, on 4 L/min nasal cannula, in no acute distress. SpO2 is 99%. Heart rhythm on bedside monitor still appears atrial fi brillation. Rate is currently 140 bpm. Cardiology is also consulted and is elected to place this patient on Cardizem infusion. Nurses are working on getting this medication from pharmacy. Patient denies any chest pain, lightheadedness, heart palpitations. Denies nausea. Not diaphoretic. Afebrile. Remaining vital signs are stable. Patient is a 87-year-old white male with past medical history significant for paroxysmal atrial fibrillation chronically anticoagulated on warfarin, severe oxygen dependent COPD, thoracic aortic aneurysm, and current ongoing tobacco dependence. Patient has reportedly followed in the past with Dr. Zapata. Of note, patient was recently admitted March, with hemoptysis. He was treated for a right-sided pneumonia. CT of the chest at that time demonstrated a 5.7 x 6 cm masslike consolidation within the right lower lung superior segment. Sputum had isolated Pseudomonas aeruginosa. Follow-up chest x-ray showed slight improvement in the masslike consolidation. No bronchoscopy was done at this time. Patient returned to the emergency department yesterday evening complaining of 3 to 4 days of worsening exertional dyspnea, chest tightness, and wheezing. He does endorse a productive cough with yellow sputum production. Denies sick contacts or recent travel. Denies any fevers. Denies any chest pain. Denies any hemoptysis. His INR was elevated at 9.4. Denies any bleeding at all. He does do continue to smoke a couple cigarettes every couple days. Reportedly he cannot even walk to the bathroom without becoming severely dyspneic. He has noted increased lower extremity swelling. He is on torsemide outpatient and reportedly voids often. Chest x-ray done on admission shows a opacification of the posterior right lung. This needs to be evaluated for possible lung mass. Patient denies any prior history of cancer. Does admit a 30 pound weight loss over the last 6 to 9 months. No change in appetite. Will need to follow-up chest CT with contrast. May need bronchoscopy and airway examination. CBC on arrival: WBC count 13, hemoglobin 10.4, hematocrit 35.2, platelets 534. BMP on arrival: Sodium 132, potassium 4.3, chloride 95, serum bicarb 32, BUN 28, creatinine 0.79, glucose 143. Troponins less than 0.012. NT proBNP 2280. EKG shows atrial fibrillation with rapid ventricular rate. No obvious ischemic changes. Most recent echocardiogram from March, estimated preserved left ventricular ejection fraction of 55 to 60% along with some mild to moderate mitral regurgitation and mild aortic regurgitation. Patient is currently sitting up in bed, on 4 L/min nasal cannula, in no acute distress. SpO2 is 99%. Heart rhythm on bedside monitor still appears atrial fibrillation. Rate is currently 140 bpm. Cardiology is also consulted and is elected to place this patient on Cardizem infusion. Nurses are working on ge tting this medication from pharmacy. Patient denies any chest pain, lightheadedness, heart palpitations. Denies nausea. Not diaphoretic. Afebrile. Remaining vital signs are stable. 09/22/2023, patient is being seen for a follow-up. Patient is still producing cough with copious amount of thick purulent respiratory secretions. He remains on a combination of Zosyn and vancomycin. Hemodynamically stable. Feels slightly improved compared to yesterday. He is also on DuoNeb nebulized treatments [id number] and IV Solu-Medrol dose of 60 mg every 6 hours. The white cell count is at 17.4 with a hemoglobin 10.7 and a platelet count of 847. Patient was given vitamin K and INR dropped down to 1.5. BUN is at 30 mg time 0.8 and sodium levels at 134 and a potassium level of 4.2. Procalcitonin level was 0.11. Patient is awake and alert and currently is on 40 Suboxone by nasal cannula with a pulse ox of 97%. Chronically debilitated and weak and seems to be quite cachectic with a body mass index of 16.2. The blood cultures are negative. Sputum culture still pending. 09/23/2023, the patient is being seen for a follow-up. The patient is being treated for an extensive right lung pneumonia. He remains on IV antibiotics and the patient is currently on IV cefepime. Cultures from the sputum showed Serratia marcescens. The blood culture has been negative x 2. The white cell count is at 13.5 with a hemoglobin 10.2. Platelet count is 765. INR is 1.9. BUN 35 with a creatinine of 0.8 and sodium levels at 135. The patient seems to be less short of breath. Nevertheless, he has significant ongoing respiratory insufficiency. He has ongoing cough, unable to bring up much of sputum as he feels that the sputum is quite trapped in his lungs. Procalcitonin level is at 0.11. No altered mentation. Oxygen requirement remains at 3 L with a pulse ox of 99 to 100%. He remains in atrial fibrillation. 09/24/2023, the patient is being seen for a follow-up. The patient has an ex tensive right lung pneumonia and a sputum culture was positive for Serratia marcescens. The patient is currently on IV cefepime. Essentially unchanged compared to yesterday. Continues to have thick runny sputum which she is able to cough. He is also using incentive spirometer. He has advanced COPD and his condition is quite debilitated. Not a good candidate for bronchoscopy at this point in time. WBC count at 13.3 with a hemoglobin 10.5 and a platelet count of 745. INR is at 3. BUN is 37 with a creatinine of 0.9 and sodium levels at 133. The patient is currently on 4 L with a pulse ox of 96%. Appetite is adequate. Repeat chest x-ray findings from today shows stable right perihilar/lower lobe pulmonary infiltrate/pneumonia which probably slightly improved compared to the chest x-ray that was done at time of admission. There is background COPD. 09/25/2023, patient is being seen for a follow-up. Condition is still unchanged and he continues to have shortness of breath and cough and congestion. Nevertheless, the overall sputum production is improved compared to yesterday. The previous sputum sample showed Serratia marcescens and the blood cultures have been negative. The patient remains on IV cefepime. No new complaints otherwise for now. Using the flutter valve. INR is therapeutic at 3.5. Remains on bronchodilators. Remains on Pulmicort and Perforomist nebulized treatments twice a day. Remains on IV Solu-Medrol 40 mg every 8 hours. Anticoagulation is being managed by the medical group. Remains on Lasix 20 mg IV every 12 hours. Fluid balance is negative and the patient is producing adequate amount of urine output. Objective - Vital Signs Vital signs: Vital Signs Temp 97.4 F L 09/25/23 09:02 Pulse 71 09/25/23 11:24 Resp 20 09/25/23 11:24 BP 108/67 09/25/23 11:24 Pulse Ox 98 09/25/23 11:24 FiO2 Intake & Output 09/24/23 09/25/23 09/25/23 18:59 06:59 18:59 Intake Total 1260 480 Output Total 750 1050 700 Balance 510 -1050 -220 Intake: Oral 1260 480 Output: Urine 750 1050 700 Other: Voiding Method Bedside Commode Bedside Commode Bedside Commode Urinal Urinal Urinal # Voids 1 - Exam GENERAL EXAM: Alert, frail 87-year-old white male, comfortable in no apparent di stress. The patient is currently on 4 L of O2 nasal cannula and he carries a body mass index of 16.2 HEAD: Normocephalic and atraumatic EYES: Normal reaction of pupils, equal size. NOSE: Clear with pink turbinates. THROAT: No erythema or exudates. NECK: No masses, no JVD. CHEST: No chest wall deformity. LUNGS: Equal air entry with markedly diminished lung sounds throughout. No crackles, wheezes, rhonchi. No conversational dyspnea or accessory muscle use.. CVS: S1 and S2 normal with no audible murmur, irregular rhythm. No extra heart sounds ABDOMEN: No hepatosplenomegaly, active bowel sounds, no guarding or rigidity. SPINE: No scoliosis or deformity SKIN: No rashes CENTRAL NERVOUS SYSTEM: No focal deficits, tone is normal in all 4 extremities. EXTREMITIES: There bilateral lower extremity pitting edema. No clubbing, or cyanosis. Peripheral pulses are intact - Labs CBC & Chem 7: 09/24/23 08:24 09/25/23 06:36 Labs: Abnormal Lab Results - Last 24 Hours (Table) 09/24/23 09/25/23 09/25/23 Range/Units 22:03 02:01 06:36 PT 34.0 H (10.0-12.5) sec INR 3.5 H (<1.2) POC Glucose (mg/dL) 140 H 151 H (70-110) mg/dL 09/25/23 09/25/23 09/25/23 Range/Units 06:41 10:17 14:02 PT (10.0-12.5) sec INR (<1.2) POC Glucose (mg/dL) 122 H 183 H 189 H (70-110) mg/dL Microbiology - Last 24 Hours (Table) 09/21/23 19:13 Blood Culture - Preliminary Blood Assessment and Plan Assessment: Acute on chronic dyspnea, and hypoxic respiratory failure and the patient is currently on 4 L of oxygen by nasal cannula Right-sided necrotizing pneumonia. I reviewed the series of CAT scans were done and the patient from December 2022, March 2023 and the most recent CAT scan of the chest that was done on 09/21/2023. It seems that the patient developed a cavitating consolidation of the right lower lobe back in March 2023. This was treated in the hospital with antibiotics. Subsequent x-rays were not done. The patient is coming in with worsening shortness of breath, coughing up copious amount of brown and purulent respiratory secretions. A CAT scan of the chest was done and again that showed diffuse emphysematous changes along with scarring and bronchiectasis. The patient has also peribronchial thickening consistent with COPD. There is a patchy area of consolidation/atelectasis in the right lower lobe and some irregular opacities in the left upper lobe and the left lower lobe associated with atelectasis. Patient is currently on IV cefepime. Procalcitonin level is at 0.11. Sputum culture has shown Serratia marcescens. Repeat chest x-ray shows stable/slightly improved right lung/perihilar consolidation/pneumonia. Unintentional weight loss, reportedly lost 30 pounds over a 6 to 9-month timeframe. History of hemoptysis, currently inactive and stable History of left lower lung nodule, followed up outpatient Chronic ongoing tobacco dependence, still smokes 2 to 3 cigarettes every couple days. Severe chronic obstructive pulmonary disease, with an FEV1 37% of predicted Chronic hypoxemic respiratory failure, secondary to above, normally maintained on 4 L/min nasal cannula while at home. Acute leukocytosis Atrial fibrillation with rapid ventricular rate, And the patient was taken off the Cardizem drip and the patient is currently on oral Cardizem 30 mg p.o. 3 times daily and INR is being monitored Supratherapeutic INR, recovered and INR is at 3, therapeutic History of thoracic aortic aneurysm Bilateral lower extremity edema Plan: Continue oxygen for 4 L/min nasal cannula and titrated down to maintain saturation above 90% Continue bronchodilators Continue IV Solu-Medrol Continue IV cefepime Obtain a follow-up chest x-ray in the morning Continue aggressive pulmonary toileting Encourage using the a flutter valve Continue Mucinex DM twice a day Echocardiogram was completed and the results are still pending for now, the patient was started on IV Lasix We will monitor PT/INR, INR is therapeutic Metoprolol and Cardizem for rate control Dietary supplementation Blood cultures still pending, negative thus far Cardiology consultation Patient is chronically debilitated and carries a body mass index of 16.2. Overall prognosis poor. Will continue to follow make further recommendations based on the progress.
[2023-09-25] MEDS: WARFARIN 0.5 MG TAB PO ONE (15:20)
[2023-09-25 21:23] LABS: Glucose,Whole Blood 129 mg/dL (70-110)
[2023-09-26 04:10] LABS: Mycoplasma IgG Antibody (EIA) 1.87 INDEX (<=0.90); Mycoplasma IgM Antibody 0.31 INDEX (<=0.90)
[2023-09-26 06:27] LABS: Glucose,Whole Blood 150 mg/dL (70-110)
--- NOTE | 2023-09-26 07:44 | XR ---
EXAMINATION TYPE: XR chest 1V DATE OF EXAM: 09/26/2023 COMPARISON: 09/24/2023 HISTORY: Follow-up pneumonia TECHNIQUE: Single frontal view of the chest is obtained. FINDINGS: A bilateral areas of consolidation and small effusion. Underlying COPD. Interval reduction in size of the left apical pneumothorax now measuring less than 5%. Heart size normal. Surgical clip s in the epigastrium. Degenerative changes of the spine. IMPRESSION: 1. Bilateral areas of consolidation. Underlying mass in the right hilum not excluded. 2. Small bilateral pleural effusion. 3. Near-complete resolution of tiny left apical pneumothorax with less than 5% residual pneumothorax.
[2023-09-26 08:39] LABS: INR 2.7 (<1.2)
[2023-09-26 10:28] LABS: Anisocytosis Slight; Basophils % (A) 0 %; Eosinophils % (A) 0 %; HGB 10.3 gm/dL (13.0-17.5); Hypochromasia Marked; Lymphocytes # (A) 0.3 k/uL (1.0-4.8); Lymphocytes % (A) 2 %; MCH 24.7 pg (25.0-35.0); MCHC 30.3 g/dL (31.0-37.0); MCV 81.7 fL (80.0-100.0); Mean Platelet Volume 7.9; Monocytes # (A) 0.6 k/uL (0-1.0); Monocytes % (A) 4 %; Neutrophils # (A) 13.1 k/uL (1.3-7.7); Neutrophils % (A) 93 %; Platelet Count 655 k/uL (150-450); RBC 4.16 m/uL (4.30-5.90); RDW 16.4 % (11.5-15.5); WBC 14.1 k/uL (3.8-10.6)
[2023-09-26 10:31] LABS: ALT 38 U/L (4-49); AST 41 U/L (17-59); African American GFR (CKD) >90 (>60 ml/min/1.73 sqM); Albumin 3.1 g/dL (3.5-5.0); Alkaline Phosphatase 115 U/L (38-126); Blood Urea Nitrogen 33 mg/dL (9-20); Chloride 89 mmol/L (98-107); Glucose 95 mg/dL (74-99); Non-African American GFR(CKD) 86 (>60 ml/min/1.73 sqM); Potassium 4.1 mmol/L (3.5-5.1); Sodium 131 mmol/L (137-145); Total Bilirubin 0.4 mg/dL (0.2-1.3); Total Protein 5.8 g/dL (6.3-8.2)
[2023-09-26 10:38] LABS: Anion Gap 5 mmol/L
[2023-09-26 11:02] LABS: Carbon Dioxide 37 mmol/L (22-30)
[2023-09-26 12:45] VITALS: BMI 19.5
[2023-09-26 14:23] LABS: Glucose,Whole Blood 235 mg/dL (70-110)
--- NOTE | 2023-09-26 14:28 | P.PN ---
Subjective Progress Note Date: 09/26/23 Progress Note Date: 09/26/23 This is an 87-year-old male with a previous medical history significant for 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 failure on oxygen at home due to severe COPD with FEV1 of 37% of predicted, chronic atrial fibrillation, thoracic aortic aneurysm, abdominal aortic aneurysm, chronic diastolic heart failure, chronic pulmonary hypertension, patient was recently hospitalized at [facility] back in March 2023 after he was admitted for what appears to be a right lower lobe Pseudomonas pneumonia involving the superior segment of the right lower lobe and it showed like a masslike consolidation back on the CT scan and he was treated and his x- ray showed improvement but never had a bronchoscopy, patient is following regularly with Dr. Zapata as an outpatient, patient stated that he has been feeling sick for the last 2 to 4 weeks and when I asked him why he did not show up to the ER or he did not come to the hospital he stated that his daughter was very sick in the hospital and she has been hospitalized for quite some times, she was supposed to be discharged to subacute rehabilitation because she was sick with some sort of pneumonia, and his was split between his daughter and himself, yesterday patient could not breathe anymore, he has been having fever chills coughing yellow-green phlegm production, so patient presented to the emergency department at [facility] with acute shortness breath associated with increased coughing of yellowish and green sputum has been having increased shortness breath over the last 3 days, he was complain of some fever and chills, he also was complaining of increased fatigue tiredness and weight loss, patient was seen and evaluated in emergency room and he was found to have leukocytosis, a 13,000, he also found to have coagulopathy due to his INR being elevated in the range of 9.7 patient had a chest x-ray that did show evidence of right lower lobe pneumonia, bilateral pleural effusion as well as cardiomegaly, patient initially was started on IV Lasix 20 mg IV push every 12 hours, patient has been requiring quite a bit of oxygen, he was seen in consultation by cardiology who recommended to continue current treatment plan, pulmonary medicine saw the patient, underwent CT scan of the chest that showed evidence of superior segment of the right lower lobe consolidative mass rule out malignancy, possibly cavitating pneumonia, he was started on vancomycin as well as Zosyn, sputum culture will be obtained, blood culture continue oxygen support, continue IV steroid in the form of Solu-Medrol, continue nebulized treatment, patient will be admitted to a telemetry unit, will continue to follow-up with the patient very closely. 09/21: Patient sitting up in bed in minimal respiratory distress, he continues to be on oxygen, he continues to be on IV antibiotic in the form of vancomycin as well as Zosyn, laboratory evaluation are better, his INR is down to 1.5, we will restart the patient back on his Coumadin, monitor his INR keep between 2.5 and 3.5, patient continues to have some coughing, yellow to green phlegm production, he has no fever or chills last night, he has no abdominal pain, nausea vomiting or diarrhea, we will continue with current treatment plan, patient has been followed by pulmonary medicine as well as cardiology, will admit the patient to a telemetry unit. 09/22. Patient seen and examined. Patient continues to get short of breath on minimal exertion. Currently on 4 L of oxygen. Patient complaining of cough 09/23. Patient seen and examined. Blood work done this morning showed WBC 13.3, hemoglobin 10.5, platelet count 745, sodium 123, potassium 4.6, BUN 37, creatinine 0.90, AST 44, ALT 35. Patient continues to be on 4 L of oxygen. Gets short of breath on minimal exertion. 09/24. Patient seen and examined. Continues to be on 4 L of oxygen. Continues to get tachypneic on exertion. States he is still feeling weak. 09/25: Patient sitting up in bed at this time, continues to be on 4 L of oxygen and tachypneic. Patient continues to have quite a bit of thick sputum. Patient is being followed by pulmonology and is not a good candidate for bronchoscopy at this time. Chest x-ray reviewed today shows bilateral areas of consolidation, underlying mass in the right ilium not excluded, small bilateral pleural effusion, and near complete resolution of left apical pneumothorax. White count is 14.1, PT 27, INR 2.7. Discontinue Lasix 20 mg IV every 12 hours and change to torsemide 40 mg PO daily, decrease to Solu-Medrol 40 mg IV every 12 hours, as well as cefepime 2 g every 8 hours. Continue breathing treatments as ordered. We will add nystatin swish and swallow 4 times daily. We will continue to monitor closely along with cardiology and pulmonology. REVIEW OF SYSTEMS: CONSTITUTIONAL: No fever, no malaise,. CARDIOVASCULAR: No chest pain, no palpitations, no syncope. PULMONARY: Positive shortness of breath, productive cough. GASTROINTESTINAL: No diarrhea, no nausea, no vomiting, no abdominal pain. NEUROLOGICAL: No headaches, no weakness, PHYSICAL EXAMINATION: GENERAL: The patient is alert and oriented x3, cachectic, chronically ill looking HEENT: Pupils are round and equally reacting to light. EOMI. No scleral icterus. No conjunctival pallor. Normocephalic, atraumatic. No pharyngeal erythema. No thyromegaly. CARDIOVASCULAR: S1 and S2 present. No murmurs, rubs, or gallops. PULMONARY: Coarse breath sound bilaterally, expiratory wheeze audible ABDOMEN: Soft, nontender, nondistended, normoactive bowel sounds. No palpable organomegaly. MUSCULOSKELETAL: No joint swelling or deformity. EXTREMITIES: No cyanosis, clubbing, or pedal edema. NEUROLOGICAL: Gross neurological examination did not reveal any focal deficits. SKIN: No rashes. ASSESSEMENT AND PLAN: 1. Acute on chronic hypoxemic respiratory failure due to right lower lobe cavitating pneumonia and possible mass. Continue cefepime 2 g every 8 hours, IV Solu-Medrol, respiratory treatments as ordered, continue on 4 L nasal cannula. We will repeat CBC and CMP tomorrow. Monitor vital signs closely. 2. Acute on chronic diastolic heart failure with severe pulmonary hypertension. Maintain strict intake and output, daily weights, change from IV Lasix to torsemide 40 mg once daily. Continue Toprol and Cardizem. 3. Chronic atrial fibrillation with rapid ventricular response. Continue patient on metoprolol 25 mg orally once every day as well as Cardizem 30 mg orally 3 times every day, continue pharmacy dose Coumadin. 4. Leukocytosis likely related to right lower lobe cavitating pneumonia in the superior segment. Continue IV antibiotic, continue to monitor the patient CBC. 5. Coagulopathy due to Coumadin use and sepsis. Continue pharmacy dose Coumadin. 6. Thoracic aortic aneurysm. Has been under the care of cardiology CT angiography is up-to-date. Has been stable at 4.5 cm. 7. Abdominal aortic aneurysm. Stable at 3.8 cm. 8. Bullous pemphigoid. Is stable. 9. DVT prophylaxis. Continue Coumadin. 10. GI prophylaxis. Continue patient on Protonix 40 mg orally once every day. Impression and plan of care have been directed as dictated by the signing physician. Kamila Huntley, nurse practitioner acting as scribe for signing physician. Objective - Vital Signs Vital signs: Vital Signs Temp 97.9 F 09/25/23 20:00 Pulse 72 09/26/23 12:00 Resp 16 09/26/23 12:00 BP 102/57 09/26/23 12:00 Pulse Ox 97 09/26/23 12:00 FiO2 Intake & Output 09/25/23 09/26/23 09/26/23 18:59 06:59 18:59 Intake Total 1150 458 Output Total 1100 650 600 Balance 50 -650 -142 Weight 59.9 kg 59.9 kg Intake: IV 10 Invasive Line 4 10 Intake, IV Titration 100 Amount Cefepime 2 gm In Sodium 100 Chloride 0.9% 100 ml @ 25 mls/hr IVPB Q12H AGUSTÍN Rx# :[id number] Oral [id number] Output: Urine 1100 650 600 Other: Voiding Method Bedside Commode Bedside Commode Bedside Commode Urinal Urinal Urinal # Voids 1 # Bowel Movements 1 - Labs CBC & Chem 7: 09/26/23 07:54 09/26/23 07:54 Labs: Abnormal Lab Results - Last 24 Hours (Table) 09/21/23 09/25/23 09/26/23 Range/Units 19:13 21:21 06:25 WBC (3.8-10.6) k/uL RBC (4.30-5.90) m/uL Hgb (13.0-17.5) gm/dL Hct (39.0-53.0) % MCH (25.0-35.0) pg MCHC (31.0-37.0) g/dL RDW (11.5-15.5) % Plt Count (150-450) k/uL Neutrophils # (1.3-7.7) k/uL Lymphocytes # (1.0-4.8) k/uL PT (10.0-12.5) sec INR (<1.2) Sodium (137-145) mmol/L Chloride (98-107) mmol/L Carbon Dioxide (22-30) mmol/L BUN (9-20) mg/dL POC Glucose (mg/dL) 129 H 150 H (70-110) mg/dL Calcium (8.4-10.2) mg/dL Total Protein (6.3-8.2) g/dL Albumin (3.5-5.0) g/dL Mycoplasma pneumon IgG 1.87 H (<=0.90) INDEX 09/26/23 09/26/23 09/26/23 Range/Units 07:54 07:54 07:54 WBC 14.1 H (3.8-10.6) k/uL RBC 4.16 L (4.30-5.90) m/uL Hgb 10.3 L (13.0-17.5) gm/dL Hct 34.0 L (39.0-53.0) % MCH 24.7 L (25.0-35.0) pg MCHC 30.3 L (31.0-37.0) g/dL RDW 16.4 H (11.5-15.5) % Plt Count 655 H (150-450) k/uL Neutrophils # 13.1 H (1.3-7.7) k/uL Lymphocytes # 0.3 L (1.0-4.8) k/uL PT 27.0 H (10.0-12.5) sec INR 2.7 H (<1.2) Sodium 131 L (137-145) mmol/L Chloride 89 L (98-107) mmol/L Carbon Dioxide 37 H (22-30) mmol/L BUN 33 H (9-20) mg/dL POC Glucose (mg/dL) (70-110) mg/dL Calcium 8.0 L (8.4-10.2) mg/dL Total Protein 5.8 L (6.3-8.2) g/dL Albumin 3.1 L (3.5-5.0) g/dL Mycoplasma pneumon IgG (<=0.90) INDEX Microbiology - Last 24 Hours (Table) 09/20/23 18:15 Blood Culture - Final Blood
[2023-09-26] MEDS: CEFEPIME 2 GM in SODIUM CHLORIDE 0.9% 100 ML IVPB SCH (14:49)
[2023-09-26] MEDS: NYSTATIN 100,000 UNIT/ML SUSP 500,000 UNIT/5 ML CUP PO SCH (14:51)
--- NOTE | 2023-09-26 14:58 | P.PN ---
Subjective Progress Note Date: 09/26/23 Patient is a 87-year-old white male with past medical history significant for paroxysmal atrial fibrillation chronically anticoagulated on warfarin, severe oxygen dependent COPD, thoracic aortic aneurysm, and current ongoing tobacco dependence. Patient has reportedly followed in the past with Dr. Zapata. Of note, patient was recently admitted March, with hemoptysis. He was treated for a right-sided pneumonia. CT of the chest at that time demonstrated a 5.7 x 6 cm masslike consolidation within the right lower lung superior segment. Sputum had isolated Pseudomonas aeruginosa. Follow-up chest x-ray showed slight improvement in the masslike consolidation. No bronchoscopy was done at this time. Patient returned to the emergency department yesterday evening complaining of 3 to 4 days of worsening exertional dyspnea, chest tightness, and wheezing. He does endorse a productive cough with yellow sputum production. Denies sick contacts or recent travel. Denies any fevers. Denies any chest pain. Denies any hemoptysis. His INR was elevated at 9.4. Denies any bleeding at all. He does do continue to smoke a couple cigarettes every couple days. Reportedly he cannot even walk to the bathroom without becoming severely dyspneic. He has noted increased lower extremity swelling. He is on torsemide outpatient and reportedly voids often. Chest x-ray done on admission shows a opacification of the posterior right lung. This needs to be evaluated for possible lung mass. Patient denies any prior history of cancer. Does admit a 30 pound weight loss over the last 6 to 9 months. No change in appetite. Will need to follow-up chest CT with contrast. May need bronchoscopy and airway examination. CBC on arrival: WBC count 13, hemoglobin 10.4, hematocrit 35.2, platelets 534. BMP on arrival: Sodium 132, potassium 4.3, chloride 95, serum bicarb 32, BUN 28, creatinine 0.79, glucose 143. Troponins less than 0.012. NT proBNP 2280. EKG shows atrial fibrillation with rapid ventricular rate. No obvious ischemic changes. Most recent echocardiogram from March, estimated preserved left ventricular ejection fraction of 55 to 60% along with some mild to moderate mitral regurgitation and mild aortic regurgitation. Patient is currently sitting up in bed, on 4 L/min nasal cannula, in no acute distress. SpO2 is 99%. Heart rhythm on bedside monitor still appears atrial fibrillation. Rate is currently 140 bpm. Cardiology is also consulted and is elected to place this patient on Cardizem infusion. Nurses are working on getting this medication from pharmacy. Patient denies any chest pain, lightheadedness, heart palpitations. Denies nausea. Not diaphoretic. Afebrile. Remaining vital signs are stable. 09/22/2023, patient is being seen for a follow-up. Patient is still producing cough with copious amount of thick purulent respiratory secretions. He remains on a combination of Zosyn and vancomycin. Hemodynamically stable. Feels slightly improved compared to yesterday. He is also on DuoNeb nebulized treatments [id number] and IV Solu-Medrol dose of 60 mg every 6 hours. The white cell count is at 17.4 with a hemoglobin 10.7 and a platelet count of 847. Patient was given vitamin K and INR dropped down to 1.5. BUN is at 30 mg time 0.8 and sodium levels at 134 and a potassium level of 4.2. Procalcitonin level was 0.11. Patient is awake and alert and currently is on 40 Suboxone by nasal cannula with a pulse ox of 97%. Chronically debilitated and weak and seems to be quite cachectic with a body mass index of 16.2. The blood cultures are neg ative. Sputum culture still pending. 09/23/2023, the patient is being seen for a follow-up. The patient is being treated for an extensive right lung pneumonia. He remains on IV antibiotics and the patient is currently on IV cefepime. Cultures from the sputum showed Serratia marcescens. The blood culture has been negative x 2. The white cell count is at 13.5 with a hemoglobin 10.2. Platelet count is 765. INR is 1.9. BUN 35 with a creatinine of 0.8 and sodium levels at 135. The patient seems to be less short of breath. Nevertheless, he has significant ongoing respiratory insufficiency. He has ongoing cough, unable to bring up much of sputum as he feels that the sputum is quite trapped in his lungs. Procalcitonin level is at 0.11. No altered mentation. Oxygen requirement remains at 3 L with a pulse ox of 99 to 100%. He remains in atrial fibrillation. 09/24/2023, the patient is being seen for a follow-up. The patient has an extensive right lung pneumonia and a sputum culture was positive for Serratia marcescens. The patient is currently on IV cefepime. Essentially unchanged compared to yesterday. Continues to have thick runny sputum which she is able to cough. He is also using incentive spirometer. He has advanced COPD and his condition is quite debilitated. Not a good candidate for bronchoscopy at this point in time. WBC count at 13.3 with a hemoglobin 10.5 and a platelet count of 745. INR is at 3. BUN is 37 with a creatinine of 0.9 and sodium levels at 133. The patient is currently on 4 L with a pulse ox of 96%. Appetite is adequate. Repeat chest x-ray findings from today shows stable right perihilar/lower lobe pulmonary infiltrate/pneumonia which probably slightly improved compared to the chest x-ray that was done at time of admission. There is background COPD. 09/25/2023, patient is being seen for a follow-up. Condition is still unchanged and he continues to have shortness of breath and cough and congestion. Nevertheless, the overall sputum production is improved compared to yesterday. The previous sputum sample showed Serratia marcescens and the blood cultures have been negative. The patient remains on IV cefepime. No new complaints otherwise for now. Using the flutter valve. INR is therapeutic at 3.5. Remains on bronchodilators. Remains on Pulmicort and Perforomist nebulized treatments twice a day. Remains on IV Solu-Medrol 40 mg every 8 hours. Anticoagulation is being managed by the medical group. Remains on Lasix 20 mg IV every 12 hours. Fluid balance is negative and the patient is producing adequate amount of urine output. The patient is seen today September 26, 2023 in follow-up on the selective care unit. He is currently sitting up at the bedside. Awake and alert in no acute distress. He is dyspneic with conversation. Dyspneic with minimal exertion. His sputum culture was positive for Serratia marcescens. He remains on cefepime. 655. INR 2.7. Sodium 131. Potassium 4.1. Bicarb 37. BUN 33. C reatinine 0.69. Glucose 95. He is continued on DuoNeb ventilations, Pulmicort inhalations, use an ax, Solu-Medrol. Remains on IV diuretics. Currently net - 600 mL balance. Objective - Vital Signs Vital signs: Vital Signs Temp 97.9 F 09/25/23 20:00 Pulse 72 09/26/23 12:00 Resp 16 09/26/23 12:00 BP 102/57 09/26/23 12:00 Pulse Ox 97 09/26/23 12:00 FiO2 Intake & Output 09/25/23 09/26/23 09/26/23 18:59 06:59 18:59 Intake Total 1150 458 Output Total 1100 650 600 Balance 50 -650 -142 Weight 59.9 kg 59.9 kg Intake: IV 10 Invasive Line 4 10 Intake, IV Titration 100 Amount Cefepime 2 gm In Sodium 100 Chloride 0.9% 100 ml @ 25 mls/hr IVPB Q12H AGUSTÍN Rx# :[id number] Oral 1140 358 Output: Urine 1100 650 600 Other: Voiding Method Bedside Commode Bedside Commode Bedside Commode Urinal Urinal Urinal # Voids 1 # Bowel Movements 1 - Exam GENERAL EXAM: Alert, frail cachectic 87-year-old male, with a body mass index of 19.5, in no apparent distress. Currently on 4 L of O2 nasal cannula HEAD: Normocephalic and atraumatic EYES: Normal reaction of pupils, equal size. NOSE: Clear with pink turbinates. THROAT: No erythema or exudates. NECK: No masses, no JVD. CHEST: No chest wall deformity.o conversational dyspnea or a LUNGS: Equal air entry with markedly diminished lung sounds throughout. No crackles, wheezes, rhonchi. CVS: S1 and S2 normal with no audible murmur, irregular rhythm. No extra heart sounds ABDOMEN: No hepatosplenomegaly, active bowel sounds, no guarding or rigidity. SPINE: No scoliosis or deformity SKIN: No rashes CENTRAL NERVOUS SYSTEM: No focal deficits, tone is normal in all 4 extremities. EXTREMITIES: There bilateral lower extremity pitting edema. No clubbing, or cyanosis. Peripheral pulses are intact - Labs CBC & Chem 7: 09/26/23 07:54 09/26/23 07:54 Labs: Abnormal Lab Results - Last 24 Hours (Table) 09/21/23 09/25/23 09/26/23 Range/Units 19:13 21:21 06:25 WBC (3.8-10.6) k/uL RBC (4.30-5.90) m/uL Hgb (13.0-17.5) gm/dL Hct (39.0-53.0) % MCH (25.0-35.0) pg MCHC (31.0-37.0) g/dL RDW (11.5-15.5) % Plt Count (150-450) k/uL Neutrophils # (1.3-7.7) k/uL Lymphocytes # (1.0-4.8) k/uL PT (10.0-12.5) sec INR (<1.2) Sodium (137-145) mmol/L Chloride (98-107) mmol/L Carbon Dioxide (22-30) mmol/L BUN (9-20) mg/dL POC Glucose (mg/dL) 129 H 150 H (70-110) mg/dL Calcium (8.4-10.2) mg/dL Total Protein (6.3-8.2) g/dL Albumin (3.5-5.0) g/dL Mycoplasma pneumon IgG 1.87 H (<=0.90) INDEX 09/26/23 09/26/23 09/26/23 Range/Units 07:54 07:54 07:54 WBC 14.1 H (3.8-10.6) k/uL RBC 4.16 L (4.30-5.90) m/uL Hgb 10.3 L (13.0-17.5) gm/dL Hct 34.0 L (39.0-53.0) % MCH 24.7 L (25.0-35.0) pg MCHC 30.3 L (31.0-37.0) g/dL RDW 16.4 H (11.5-15.5) % Plt Count 655 H (150-450) k/uL Neutrophils # 13.1 H (1.3-7.7) k/uL Lymphocytes # 0.3 L (1.0-4.8) k/uL PT 27.0 H (10.0-12.5) sec INR 2.7 H (<1.2) Sodium 131 L (137-145) mmol/L Chloride 89 L (98-107) mmol/L Carbon Dioxide 37 H (22-30) mmol/L BUN 33 H (9-20) mg/dL POC Glucose (mg/dL) (70-110) mg/dL Calcium 8.0 L (8.4-10.2) mg/dL Total Protein 5.8 L (6.3-8.2) g/dL Albumin 3.1 L (3.5-5.0) g/dL Mycoplasma pneumon IgG (<=0.90) INDEX 09/26/23 Range/Units 14:21 WBC (3.8-10.6) k/uL RBC (4.30-5.90) m/uL Hgb (13.0-17.5) gm/dL Hct (39.0-53.0) % MCH (25.0-35.0) pg MCHC (31.0-37.0) g/dL RDW (11.5-15.5) % Plt Count (150-450) k/uL Neutrophils # (1.3-7.7) k/uL Lymphocytes # (1.0-4.8) k/uL PT (10.0-12.5) sec INR (<1.2) Sodium (137-145) mmol/L Chloride (98-107) mmol/L Carbon Dioxide (22-30) mmol/L BUN (9-20) mg/dL POC Glucose (mg/dL) 235 H (70-110) mg/dL Calcium (8.4-10.2) mg/dL Total Protein (6.3-8.2) g/dL Albumin (3.5-5.0) g/dL Mycoplasma pneumon IgG (<=0.90) INDEX Microbiology - Last 24 Hours (Table) 09/20/23 18:15 Blood Culture - Final Blood Assessment and Plan Assessment: Acute on chronic dyspnea, and hypoxic respiratory failure and the patient is currently on 4 L of oxygen by nasal cannula Right-sided necrotizing pneumonia. CAT scans were done and the patient from December 2022, March 2023 and the most recent CAT scan of the chest that was done on 09/21/2023. It seems that the patient developed a cavitating consolidation of the right lower lobe back in March 2023. This was treated in the hospital with antibiotics. A CAT scan of the chest was done and again that showed diffuse emphysematous changes along with scarring and bronchiectasis. The patient has also peribronchial thickening consistent with COPD. There is a patchy area of consolidation/atelectasis in the right lower lobe and some irregular opacities in the left upper lobe and the left lower lobe associated with atelectasis. Patient is currently on IV cefepime. Procalcitonin level is at 0.11. Sputum culture has shown Serratia marcescens. Repeat chest x-ray shows stable/slightly improved right lung/perihilar consolida tion/pneumonia. Unintentional weight loss, reportedly lost 30 pounds over a 6 to 9-month timeframe. History of hemoptysis, currently inactive and stable History of left lower lung nodule, followed up outpatient Chronic ongoing tobacco dependence, still smokes 2 to 3 cigarettes every couple days. Severe chronic obstructive pulmonary disease, with an FEV1 37% of predicted Chronic hypoxemic respiratory failure, secondary to above, normally maintained on 4 L/min nasal cannula while at home. Acute leukocytosis Atrial fibrillation with rapid ventricular rate, And the patient was taken off the Cardizem drip and the patient is currently on oral Cardizem 30 mg p.o. 3 times daily and INR is being monitored Supratherapeutic INR, recovered and INR is at 3, therapeutic History of thoracic aortic aneurysm Bilateral lower extremity edema Plan: The patient was seen and evaluated Labs and medications reviewed Titrate the FiO2 as tolerated No plans for bronchoscopy Patient is much too frail and cachectic Continue cefepime, bronchodilators, steroids We will continue to follow I have personally seen and examined the patient, performed the documentation and the assessment and plan as written. Number of minutes spent on the visit: 10.
[2023-09-26] MEDS: WARFARIN 1 MG TAB PO ONE (16:55)
--- NOTE | 2023-09-26 17:34 | P.PN ---
Subjective Patient is resting in bed. Persistently short of breath shallow breaths labored breathing Pulse rate in the 70s and 80s On examination Blood pressure 141/90 mmHg Breath sounds are reduced bilaterally Heart sounds irregular Impression Atrial fibrillation with RVR currently on oral Cardizem Diastolic heart failure Suggest Switch to long-acting oral Cardizem and maximize medication to control heart rates Switch to oral Lasix and continue spironolactone Please call us as needed Objective - Vital Signs Vital signs: Vital Signs Temp 97.9 F 09/25/23 20:00 Pulse 82 09/26/23 08:57 Resp 18 09/26/23 08:00 BP 131/65 09/26/23 08:00 Pulse Ox 92 L 09/26/23 08:42 FiO2 Intake & Output 09/25/23 09/26/23 09/26/23 18:59 06:59 18:59 Intake Total 1150 Output Total 1100 650 Balance 50 -650 Weight 59.9 kg Intake: IV 10 Invasive Line 4 10 Oral 1140 Output: Urine 1100 650 Other: Voiding Method Bedside Commode Bedside Commode Urinal Urinal - Labs CBC & Chem 7: 09/26/23 07:54 09/26/23 07:54 Labs: Abnormal Lab Results - Last 24 Hours (Table) 09/21/23 09/25/23 09/25/23 Range/Units 19:13 10:17 14:02 PT (10.0-12.5) sec INR (<1.2) POC Glucose (mg/dL) 183 H 189 H (70-110) mg/dL Mycoplasma pneumon IgG 1.87 H (<=0.90) INDEX 09/25/23 09/26/23 09/26/23 Range/Units 21:21 06:25 07:54 PT 27.0 H (10.0-12.5) sec INR 2.7 H (<1.2) POC Glucose (mg/dL) 129 H 150 H (70-110) mg/dL Mycoplasma pneumon IgG (<=0.90) INDEX Microbiology - Last 24 Hours (Table) 09/20/23 18:15 Blood Culture - Final Blood
[2023-09-26] MEDS: methylPREDNISolone SOD SUCCI 40 MG/ML 1 ML VIAL IV SCH (20:47)
[2023-09-26 22:31] LABS: Glucose,Whole Blood 204 mg/dL (70-110)
[2023-09-27 06:10] LABS: Glucose,Whole Blood 98 mg/dL (70-110)
[2023-09-27] MEDS: TORSEMIDE 20 MG TAB PO SCH (09:34)
[2023-09-27 10:47] LABS: INR 2.1 (<1.2)
[2023-09-27 13:19] LABS: Glucose,Whole Blood 108 mg/dL (70-110)
[2023-09-27] MEDS: methylPREDNISolone SOD SUCCI 125 MG/2 ML VIAL IV SCH (13:19)
--- NOTE | 2023-09-27 13:35 | P.PN ---
Subjective Progress Note Date: 09/27/23 Patient is a 87-year-old white male with past medical history significant for paroxysmal atrial fibrillation chronically anticoagulated on warfarin, severe oxygen dependent COPD, thoracic aortic aneurysm, and current ongoing tobacco dependence. Patient has reportedly followed in the past with Dr. Zapata. Of note, patient was recently admitted March, with hemoptysis. He was treated for a right-sided pneumonia. CT of the chest at that time demonstrated a 5.7 x 6 cm masslike consolidation within the right lower lung superior segment. Sputum had isolated Pseudomonas aeruginosa. Follow-up chest x-ray showed slight improvement in the masslike consolidation. No bronchoscopy was done at this time. Patient returned to the emergency department yesterday evening complaining of 3 to 4 days of worsening exertional dyspnea, chest tightness, and wheezing. He does endorse a productive cough with yellow sputum production. Denies sick contacts or recent travel. Denies any fevers. Denies any chest pain. Denies any hemoptysis. His INR was elevated at 9.4. Denies any bleeding at all. He does do continue to smoke a couple cigarettes every couple days. Reportedly he cannot even walk to the bathroom without becoming severely dyspneic. He has noted increased lower extremity swelling. He is on torsemide outpatient and reportedly voids often. Chest x-ray done on admission shows a opacification of the posterior right lung. This needs to be evaluated for possible lung mass. Patient denies any prior history of cancer. Does admit a 30 pound weight loss over the last 6 to 9 months. No change in appetite. Will need to follow-up chest CT with contrast. May need bronchoscopy and airway examination. CBC on arrival: WBC count 13, hemoglobin 10.4, hematocrit 35.2, platelets 534. BMP on arrival: Sodium 132, potassium 4.3, chloride 95, serum bicarb 32, BUN 28, creatinine 0.79, glucose 143. Troponins less than 0.012. NT proBNP 2280. EKG shows atrial fibrillation with rapid ventricular rate. No obvious ischemic changes. Most recent echocardiogram from March, estimated preserved left ventricular ejection fraction of 55 to 60% along with some mild to moderate mitral regurgitation and mild aortic regurgitation. Patient is currently sitting up in bed, on 4 L/min nasal cannula, in no acute distress. SpO2 is 99%. Heart rhythm on bedside monitor still appears atrial fibrillation. Rate is currently 140 bpm. Cardiology is also consulted and is elected to place this patient on Cardizem infusion. Nurses are working on getting this medication from pharmacy. Patient denies any chest pain, lightheadedness, heart palpitations. Denies nausea. Not diaphoretic. Afebrile. Remaining vital signs are stable. 09/22/2023, patient is being seen for a follow-up. Patient is still producing cough with copious amount of thick purulent respiratory secretions. He remains on a combination of Zosyn and vancomycin. Hemodynamically stable. Feels slightly improved compared to yesterday. He is also on DuoNeb nebulized treatments oxdyts-sgm-kysea and IV Solu-Medrol dose of 60 mg every 6 hours. The white cell count is at 17.4 with a hemoglobin 10.7 and a platelet count of 847. Patient was given vitamin K and INR dropped down to 1.5. BUN is at 30 mg time 0.8 and sodium levels at 134 and a potassium level of 4.2. Procalcitonin level was 0.11. Patient is awake and alert and currently is on 40 Suboxone by nasal cannula with a pulse ox of 97%. Chronically debilitated and weak and seems to be quite cachectic with a body mass index of 16.2. The blood cultures are neg ative. Sputum culture still pending. 09/23/2023, the patient is being seen for a follow-up. The patient is being treated for an extensive right lung pneumonia. He remains on IV antibiotics and the patient is currently on IV cefepime. Cultures from the sputum showed Serratia marcescens. The blood culture has been negative x 2. The white cell count is at 13.5 with a hemoglobin 10.2. Platelet count is 765. INR is 1.9. BUN 35 with a creatinine of 0.8 and sodium levels at 135. The patient seems to be less short of breath. Nevertheless, he has significant ongoing respiratory insufficiency. He has ongoing cough, unable to bring up much of sputum as he feels that the sputum is quite trapped in his lungs. Procalcitonin level is at 0.11. No altered mentation. Oxygen requirement remains at 3 L with a pulse ox of 99 to 100%. He remains in atrial fibrillation. 09/24/2023, the patient is being seen for a follow-up. The patient has an extensive right lung pneumonia and a sputum culture was positive for Serratia marcescens. The patient is currently on IV cefepime. Essentially unchanged compared to yesterday. Continues to have thick runny sputum which she is able to cough. He is also using incentive spirometer. He has advanced COPD and his condition is quite debilitated. Not a good candidate for bronchoscopy at this point in time. WBC count at 13.3 with a hemoglobin 10.5 and a platelet count of 745. INR is at 3. BUN is 37 with a creatinine of 0.9 and sodium levels at 133. The patient is currently on 4 L with a pulse ox of 96%. Appetite is adequate. Repeat chest x-ray findings from today shows stable right perihilar/lower lobe pulmonary infiltrate/pneumonia which probably slightly improved compared to the chest x-ray that was done at time of admission. There is background COPD. 09/25/2023, patient is being seen for a follow-up. Condition is still unchanged and he continues to have shortness of breath and cough and congestion. Nevertheless, the overall sputum production is improved compared to yesterday. The previous sputum sample showed Serratia marcescens and the blood cultures have been negative. The patient remains on IV cefepime. No new complaints otherwise for now. Using the flutter valve. INR is therapeutic at 3.5. Remains on bronchodilators. Remains on Pulmicort and Perforomist nebulized treatments twice a day. Remains on IV Solu-Medrol 40 mg every 8 hours. Anticoagulation is being managed by the medical group. Remains on Lasix 20 mg IV every 12 hours. Fluid balance is negative and the patient is producing adequate amount of urine output. The patient is seen today September 26, 2023 in follow-up on the selective care unit. He is currently sitting up at the bedside. Awake and alert in no acute distress. He is dyspneic with conversation. Dyspneic with minimal exertion. His sputum culture was positive for Serratia marcescens. He remains on cefepime. 655. INR 2.7. Sodium 131. Potassium 4.1. Bicarb 37. BUN 33. C reatinine 0.69. Glucose 95. He is continued on DuoNeb ventilations, Pulmicort inhalations, use an ax, Solu-Medrol. Remains on IV diuretics. Currently net - 600 mL balance. The patient is seen today September 27, 2023 in follow-up on the selective care unit. He is currently sitting up in a chair. Awake and alert in no acute distress. He is improved but not quite back to his baseline. He still has some bronchospasm and wheezing. He is dyspneic with conversation. He remains on DuoNeb ventilations, Pulmicort and Perforomist inhalations, Solu-Medrol. He remains on cefepime. His sputum is positive for Serratia marcescens. Chest x- ray shows bilateral areas of consolidation. Underlying mass in the right hilum not excluded. He has small bilateral pleural effusions. Near complete resolution of the tiny left apical pneumothorax with less than 5% residual pneumothorax. INR 2.1. Glucose 108. He is continued on Demadex and Aldactone. Currently in a +138 mL balance. Objective - Vital Signs Vital signs: Vital Signs Temp 98.3 F 09/27/23 12:54 Pulse 97 09/27/23 12:54 Resp 16 09/27/23 12:54 BP 107/67 09/27/23 12:54 Pulse Ox 100 09/27/23 12:54 FiO2 Intake & Output 09/26/23 09/27/23 09/27/23 18:59 06:59 18:59 Intake Total 698 240 356 Output Total 600 200 280 Balance 98 40 76 Weight 59.9 kg Intake: Intake, IV Titration 100 Amount Cefepime 2 gm In Sodium 100 Chloride 0.9% 100 ml @ 25 mls/hr IVPB Q12H [facility] Rx# :[id number] Oral 598 240 356 Output: Urine 600 200 280 Other: Voiding Method Bedside Commode Bedside Commode Bedside Commode Urinal Urinal Urinal # Voids 1 2 1 # Bowel Movements 1 1 1 - Exam GENERAL EXAM: Alert, frail, cachectic 87-year-old male, sitting up in a chair, in no apparent distress. Currently on 4 L of O2 nasal cannula HEAD: Normocephalic and atraumatic EYES: Normal reaction of pupils, equal size. NOSE: Clear with pink turbinates. THROAT: No erythema or exudates. NECK: No masses, no JVD. CHEST: No chest wall deformity. LUNGS: Equal air entry with markedly diminished lung sounds throughout. Bilateral wheezes, rhonchi. CVS: S1 and S2 normal with no audible murmur, irregular rhythm. No extra heart sounds ABDOMEN: No hepatosplenomegaly, active bowel sounds, no guarding or rigidity. SPINE: No scoliosis or deformity SKIN: No rashes CENTRAL NERVOUS SYSTEM: No focal deficits, tone is normal in all 4 extremities. EXTREMITIES: There bilateral lower extremity pitting edema. No clubbing, or cyanosis. Peripheral pulses are intact - Labs CBC & Chem 7: 09/26/23 07:54 09/26/23 07:54 Labs: Abnormal Lab Results - Last 24 Hours (Table) 09/26/23 09/26/23 09/27/23 Range/Units 14:21 22:30 09:38 PT 21.0 H (10.0-12.5) sec INR 2.1 H (<1.2) POC Glucose (mg/dL) 235 H 204 H (70-110) mg/dL Microbiology - Last 24 Hours (Table) 09/21/23 19:13 Blood Culture - Final Blood Assessment and Plan Assessment: Acute on chronic dyspnea, and hypoxic respiratory failure and the patient is currently on 4 L of oxygen by nasal cannula Right-sided necrotizing pneumonia. CAT scans were done and the patient from December 2022, March 2023 and the most recent CAT scan of the chest that was done on 09/21/2023. It seems that the patient developed a cavitating cons olidation of the right lower lobe back in March 2023. This was treated in the hospital with antibiotics. A CAT scan of the chest was done and again that showed diffuse emphysematous changes along with scarring and bronchiectasis. The patient has also peribronchial thickening consistent with COPD. There is a patchy area of consolidation/atelectasis in the right lower lobe and some irregular opacities in the left upper lobe and the left lower lobe associated with atelectasis. Patient is currently on IV cefepime. Procalcitonin level is at 0.11. Sputum culture has shown Serratia marcescens. Repeat chest x-ray shows stable/slightly improved right lung/perihilar consolidation/pneumonia. Unintentional weight loss, reportedly lost 30 pounds over a 6 to 9-month timeframe. History of hemoptysis, currently inactive and stable History of left lower lung nodule, followed up outpatient Chronic ongoing tobacco dependence, still smokes 2 to 3 cigarettes every couple days. Severe chronic obstructive pulmonary disease, with an FEV1 37% of predicted Chronic hypoxemic respiratory failure, secondary to above, normally maintained on 4 L/min nasal cannula while at home. Acute leukocytosis Atrial fibrillation with rapid ventricular rate, And the patient was taken off the Cardizem drip and the patient is currently on oral Cardizem Supratherapeutic INR, recovered and INR is at 2.1, therapeutic History of thoracic aortic aneurysm Bilateral lower extremity edema Plan: The patient was seen and evaluated Labs and medications reviewed Cannot rule out underlying mass in the right hilum May benefit from outpatient PET scan No plans for bronchoscopy Patient is much too frail and cachectic Titrate the FiO2 as tolerated Continue cefepime, bronchodilators, steroids We will continue to follow I have personally seen and examined the patient, performed the documentation and the assessment and plan as written. Number of minutes spent on the visit: 10.
--- NOTE | 2023-09-27 14:57 | P.PN ---
Subjective Progress Note Date: 09/27/23 This is an 87-year-old male with a previous medical history significant for 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 failure on oxygen at home due to severe COPD with FEV1 of 37% of predicted, chronic atrial fibrillation, thoracic aortic aneurysm, abdominal aortic aneurysm, chronic diastolic heart failure, chronic pulmonary hypertension, patient was recently hospitalized at [facility] back in March 2023 after he was admitted for what appears to be a right lower lobe Pseudomonas pneumonia involving the superior segment of the right lower lobe and it showed l sharron a masslike consolidation back on the CT scan and he was treated and his x- ray showed improvement but never had a bronchoscopy, patient is following regularly with Dr. Zapata as an outpatient, patient stated that he has been feeling sick for the last 2 to 4 weeks and when I asked him why he did not show up to the ER or he did not come to the hospital he stated that his daughter was very sick in the hospital and she has been hospitalized for quite some times, she was supposed to be discharged to subacute rehabilitation because she was sick with some sort of pneumonia, and his was split between his daughter and himself, yesterday patient could not breathe anymore, he has been having fev er chills coughing yellow-green phlegm production, so patient presented to the emergency department at [facility] with acute shortness breath associated with increased coughing of yellowish and green sputum has been having increased shortness breath over the last 3 days, he was complain of some fever and chills, he also was complaining of increased fatigue tiredness and weight loss, patient was seen and evaluated in emergency room and he was found to have leukocytosis, a 13,000, he also found to have coagulopathy due to his INR being elevated in the range of 9.7 patient had a chest x-ray that did show evidence of right lower lobe pneumonia, bilateral pleural effusion as well as cardiomegaly, patient initially was started on IV Lasix 20 mg IV push every 12 hours, patient has been requiring quite a bit of oxygen, he was seen in consultation by cardiology who recommended to continue current treatment plan, pulmonary medicine saw the patient, underwent CT scan of the chest that showed evidence of superior segment of the right lower lobe consolidative mass rule out malignancy, possibly cavitating pneumonia, he was started on vancomycin as well as Zosyn, sputum culture will be obtained, blood culture continue oxygen support, continue IV steroid in the form of Solu-Medrol, continue nebulized treatment, patient will be admitted to a telemetry unit, will continue to follow-up with the patient very closely. 09/21: Patient sitting up in bed in minimal respiratory distress, he continues to be on oxygen, he continues to be on IV antibiotic in the form of vancomycin as well as Zosyn, laboratory evaluation are better, his INR is down to 1.5, we will restart the patient back on his Coumadin, monitor his INR keep between 2.5 and 3.5, patient continues to have some coughing, yellow to green phlegm production, he has no fever or chills last night, he has no abdominal pain, nausea vomiting or diarrhea, we will continue with current treatment plan, patient has been followed by pulmonary medicine as well as cardiology, will admit the patient to a telemetry unit. 09/22. Patient seen and examined. Patient continues to get short of breath on minimal exertion. Currently on 4 L of oxygen. Patient complaining of cough 09/23. Patient seen and examined. Blood work done this morning showed WBC 13.3, hemoglobin 10.5, platelet count 745, sodium 123, potassium 4.6, BUN 37, cre atinine 0.90, AST 44, ALT 35. Patient continues to be on 4 L of oxygen. Gets short of breath on minimal exertion. 09/24. Patient seen and examined. Continues to be on 4 L of oxygen. Continues to get tachypneic on exertion. States he is still feeling weak. 09/25: Patient sitting up in bed at this time, continues to be on 4 L of oxygen and tachypneic. Patient continues to have quite a bit of thick sputum. Patient is being followed by pulmonology and is not a good candidate for bronchoscopy at this time. Chest x-ray reviewed today shows bilateral areas of consolidation, underlying mass in the right ilium not excluded, small bilateral pleural effusion, and near complete resolution of left apical pneumothorax. White count is 14.1, PT 27, INR 2.7. Discontinue Lasix 20 mg IV every 12 hours and change to torsemide 40 mg PO daily, decrease to Solu-Medrol 40 mg IV every 12 hours, as well as cefepime 2 g every 8 hours. Continue breathing treatments as ordered. We will add nystatin swish and swallow 4 times daily. We will continue to monitor closely along with cardiology and pulmonology. 09/26: Patient is sitting up in chair was seen earlier by Pulmonary and his Solu- Medrol was increased to 60 mg IV push every 6 hours, he has been maintained on oxygen at 4 L nasal cannula, he continues to cough less phlegm production, he is less short of breath, he has been seen in consultation by physical therapy as well, the patient is planning to go back home, and follow-up with us as an outpatient, patient is resistant to the idea of going to a subacute rehabilitation at this point in time, his activity is limited, even at home, he uses a walker most of the time, and he does ambulate for short distance at home. REVIEW OF SYSTEMS: CONSTITUTIONAL: No fever, no malaise,. CARDIOVASCULAR: No chest pain, no palpitations, no syncope. PULMONARY: Positive shortness of breath, productive cough. GASTROINTESTINAL: No diarrhea, no nausea, no vomiting, no abdominal pain. NEUROLOGICAL: No headaches, no weakness, PHYSICAL EXAMINATION: GENERAL: The patient is alert and oriented x3, cachectic, chronically ill looking HEENT: Pupils are round and equally reacting to light. EOMI. No scleral icterus. No conjunctival pallor. Normocephalic, atraumatic. No pharyngeal erythema. No thyromegaly. CARDIOVASCULAR: First heart sound is depressed, second heart sounds normal, irregularly irregular, other systolic ejection murmur 2/6 located in the left sternal border. PULMONARY: Decreased breath sound at the bases, few rhonchi, minimal expiratory wheezes, minimal intercostal retractions. ABDOMEN: Soft, nontender, nondistended, normoactive bowel sounds. No palpable organomegaly. MUSCULOSKELETAL: No joint swelling or deformity. EXTREMITIES: There is +1 edema, no calf tenderness, dorsalis pedis +1 bilaterally. NEUROLOGICAL: Patient is awake alert and oriented x 3, cranial nerves II to XII appear grossly intact, muscle power were 4 out of 5 in upper extremities and 3 out of 5 in bilateral lower extremities. SKIN: No rashes. ASSESSEMENT AND PLAN: 1. Acute on chronic hypoxemic respiratory failure due to right lower lobe cavitating pneumonia and possible mass. Continue cefepime 2 g every 8 hours, respiratory treatments as ordered, continue on 4 L nasal cannula. Continue pat ient on Solu-Medrol 60 mg IV push every 6 hours, continue IV antibiotic, continue flutter valve, continue sinus primary, monitor the patient very closely, hopefully home in the next few days. 2. Acute on chronic diastolic heart failure with severe pulmonary hypertension. Maintain strict intake and output, daily weights, continue torsemide 40 mg once daily. Continue Toprol and Cardizem. 3. Chronic atrial fibrillation with rapid ventricular response. Continue patient on metoprolol 25 mg orally once every day as well as Cardizem 30 mg orally 3 times every day, continue pharmacy dose Coumadin. 4. Leukocytosis likely related to right lower lobe cavitating pneumonia in the superior segment. Continue IV antibiotic, continue to monitor the patient CBC. 5. Coagulopathy due to Coumadin use and sepsis. Continue pharmacy dose Coumadin. 6. Thoracic aortic aneurysm. Has been under the care of cardiology CT angiography is up-to-date. Has been stable at 4.5 cm. 7. Abdominal aortic aneurysm. Stable at 3.8 cm. 8. Bullous pemphigoid. Is stable. 9. DVT prophylaxis. Continue Coumadin. 10. GI prophylaxis. Continue patient on Protonix 40 mg orally once every day. 11. Hopefully home in the next 1 or 2 days. Objective - Vital Signs Vital signs: Vital Signs Temp 98.3 F 09/27/23 12:54 Pulse 97 09/27/23 12:54 Resp 16 09/27/23 12:54 BP 107/67 09/27/23 12:54 Pulse Ox 100 09/27/23 12:54 FiO2 Intake & Output 09/26/23 09/27/23 09/27/23 18:59 06:59 18:59 Intake Total 698 240 356 Output Total 600 200 280 Balance 98 40 76 Weight 59.9 kg Intake: Intake, IV Titration 100 Amount Cefepime 2 gm In Sodium 100 Chloride 0.9% 100 ml @ 25 mls/hr IVPB Q12H [facility] Rx# :[id number] Oral 598 240 356 Output: Urine 600 200 280 Other: Voiding Method Bedside Commode Bedside Commode Bedside Commode Urinal Urinal Urinal # Voids 1 2 1 # Bowel Movements 1 1 1 - Labs CBC & Chem 7: 09/28/23 06:21 09/28/23 06:21 Labs: Abnormal Lab Results - Last 24 Hours (Table) 09/26/23 09/27/23 Range/Units 22:30 09:38 PT 21.0 H (10.0-12.5) sec INR 2.1 H (<1.2) POC Glucose (mg/dL) 204 H (70-110) mg/dL Microbiology - Last 24 Hours (Table) 09/21/23 19:13 Blood Culture - Final Blood
[2023-09-27] MEDS: WARFARIN 1 MG TAB PO ONE (17:56)
[2023-09-27 18:49] LABS: Glucose,Whole Blood 186 mg/dL (70-110)
[2023-09-27] MEDS: FORMOTEROL FUMARATE 20 MCG/2 ML NEBU INHALATION SCH (20:02)
[2023-09-27 20:26] LABS: Glucose,Whole Blood 217 mg/dL (70-110)
[2023-09-28 06:27] LABS: Glucose,Whole Blood 105 mg/dL (70-110)
[2023-09-28 06:53] LABS: Prothrombin Time 19.8 sec (10.0-12.5)
[2023-09-28 08:26] LABS: MCHC 29.7 g/dL (32.0-37.0); MCV 80.6 FL (80.0-97.0); Mean Platelet Volume 9.7 FL (9.5-12.2); NRBC Per 100 WBC 0 X 10*3/uL (0.00-0.01); Platelet Count 601 X 10*3/uL (140-440); RBC 4.59 X 10*6/uL (4.40-5.60); RDW 18.2 % (11.5-14.5); WBC 13.16 X 10*3/uL (4.50-10.00)
[2023-09-28] MEDS: DILTIAZEM CD 180 MG CAP.ER.24H PO SCH (08:35)
[2023-09-28 09:03] LABS: ALT 45 U/L (10-49); AST 33 U/L (14-35); Albumin 3.5 g/dL (3.8-4.9); Alkaline Phosphatase 123 U/L (41-126); BUN/Creat Ratio 40.29 Ratio (12.00-20.00); Blood Urea Nitrogen 28.2 mg/dL (9.0-27.0); Calcium 8.4 mg/dL (8.7-10.3); Carbon Dioxide 36.2 mmol/L (21.6-31.8); Chloride 84 mmol/L (96-109); Globulin 2.5 g/dL (1.6-3.3); Glucose 113 mg/dL (70-110); Potassium 3.9 mmol/L (3.5-5.5); Sodium 134 mmol/L (135-145); Total Bilirubin 0.2 mg/dL (0.3-1.2)
[2023-09-28 10:35] LABS: Glucose,Whole Blood 144 mg/dL (70-110)
--- NOTE | 2023-09-28 14:17 | P.PN ---
Subjective Progress Note Date: 09/28/23 Patient is a 87-year-old white male with past medical history significant for paroxysmal atrial fibrillation chronically anticoagulated on warfarin, severe oxygen dependent COPD, thoracic aortic aneurysm, and current ongoing tobacco dependence. Patient has reportedly followed in the past with Dr. Zapata. Of note, patient was recently admitted March, with hemoptysis. He was treated for a right-sided pneumonia. CT of the chest at that time demonstrated a 5.7 x 6 cm masslike consolidation within the right lower lung superior segment. Sputum had isolated Pseudomonas aeruginosa. Follow-up chest x-ray showed slight improvement in the masslike consolidation. No bronchoscopy was done at this time. Patient returned to the emergency department yesterday evening complaining of 3 to 4 days of worsening exertional dyspnea, chest tightness, and wheezing. He does endorse a productive cough with yellow sputum production. Denies sick contacts or recent travel. Denies any fevers. Denies any chest pain. Denies any hemoptysis. His INR was elevated at 9.4. Denies any bleeding at all. He does do continue to smoke a couple cigarettes every couple days. Reportedly he cannot even walk to the bathroom without becoming severely dyspneic. He has noted increased lower extremity swelling. He is on torsemide outpatient and reportedly voids often. Chest x-ray done on admission shows a opacification of the posterior right lung. This needs to be evaluated for possible lung mass. Patient denies any prior history of cancer. Does admit a 30 pound weight loss over the last 6 to 9 months. No change in appetite. Will need to follow-up chest CT with contrast. May need bronchoscopy and airway examination. CBC on arrival: WBC count 13, hemoglobin 10.4, hematocrit 35.2, platelets 534. BMP on arrival: Sodium 132, potassium 4.3, chloride 95, serum bicarb 32, BUN 28, creatinine 0.79, glucose 143. Troponins less than 0.012. NT proBNP 2280. EKG shows atrial fibrillation with rapid ventricular rate. No obvious ischemic changes. Most recent echocardiogram from March, estimated preserved left ventricular ejection fraction of 55 to 60% along with some mild to moderate mitral regurgitation and mild aortic regurgitation. Patient is currently sitting up in bed, on 4 L/min nasal cannula, in no acute distress. SpO2 is 99%. Heart rhythm on bedside monitor still appears atrial fibrillation. Rate is currently 140 bpm. Cardiology is also consulted and is elected to place this patient on Cardizem infusion. Nurses are working on getting this medication from pharmacy. Patient denies any chest pain, lightheadedness, heart palpitations. Denies nausea. Not diaphoretic. Afebrile. Remaining vital signs are stable. 09/22/2023, patient is being seen for a follow-up. Patient is still producing cough with copious amount of thick purulent respiratory secretions. He remains on a combination of Zosyn and vancomycin. Hemodynamically stable. Feels slightly improved compared to yesterday. He is also on DuoNeb nebulized treatments [id number] and IV Solu-Medrol dose of 60 mg every 6 hours. The white cell count is at 17.4 with a hemoglobin 10.7 and a platelet count of 847. Patient was given vitamin K and INR dropped down to 1.5. BUN is at 30 mg time 0.8 and sodium levels at 134 and a potassium level of 4.2. Procalcitonin level was 0.11. Patient is awake and alert and currently is on 40 Suboxone by nasal cannula with a pulse ox of 97%. Chronically debilitated and weak and seems to be quite cachectic with a body mass index of 16.2. The blood cultures are neg ative. Sputum culture still pending. 09/23/2023, the patient is being seen for a follow-up. The patient is being treated for an extensive right lung pneumonia. He remains on IV antibiotics and the patient is currently on IV cefepime. Cultures from the sputum showed Serratia marcescens. The blood culture has been negative x 2. The white cell count is at 13.5 with a hemoglobin 10.2. Platelet count is 765. INR is 1.9. BUN 35 with a creatinine of 0.8 and sodium levels at 135. The patient seems to be less short of breath. Nevertheless, he has significant ongoing respiratory insufficiency. He has ongoing cough, unable to bring up much of sputum as he feels that the sputum is quite trapped in his lungs. Procalcitonin level is at 0.11. No altered mentation. Oxygen requirement remains at 3 L with a pulse ox of 99 to 100%. He remains in atrial fibrillation. 09/24/2023, the patient is being seen for a follow-up. The patient has an extensive right lung pneumonia and a sputum culture was positive for Serratia marcescens. The patient is currently on IV cefepime. Essentially unchanged compared to yesterday. Continues to have thick runny sputum which she is able to cough. He is also using incentive spirometer. He has advanced COPD and his condition is quite debilitated. Not a good candidate for bronchoscopy at this point in time. WBC count at 13.3 with a hemoglobin 10.5 and a platelet count of 745. INR is at 3. BUN is 37 with a creatinine of 0.9 and sodium levels at 133. The patient is currently on 4 L with a pulse ox of 96%. Appetite is adequate. Repeat chest x-ray findings from today shows stable right perihilar/lower lobe pulmonary infiltrate/pneumonia which probably slightly improved compared to the chest x-ray that was done at time of admission. There is background COPD. 09/25/2023, patient is being seen for a follow-up. Condition is still unchanged and he continues to have shortness of breath and cough and congestion. Nevertheless, the overall sputum production is improved compared to yesterday. The previous sputum sample showed Serratia marcescens and the blood cultures have been negative. The patient remains on IV cefepime. No new complaints otherwise for now. Using the flutter valve. INR is therapeutic at 3.5. Remains on bronchodilators. Remains on Pulmicort and Perforomist nebulized treatments twice a day. Remains on IV Solu-Medrol 40 mg every 8 hours. Anticoagulation is being managed by the medical group. Remains on Lasix 20 mg IV every 12 hours. Fluid balance is negative and the patient is producing adequate amount of urine output. The patient is seen today September 26, 2023 in follow-up on the selective care unit. He is currently sitting up at the bedside. Awake and alert in no acute distress. He is dyspneic with conversation. Dyspneic with minimal exertion. His sputum culture was positive for Serratia marcescens. He remains on cefepime. 655. INR 2.7. Sodium 131. Potassium 4.1. Bicarb 37. BUN 33. C reatinine 0.69. Glucose 95. He is continued on DuoNeb ventilations, Pulmicort inhalations, use an ax, Solu-Medrol. Remains on IV diuretics. Currently net - 600 mL balance. The patient is seen today September 27, 2023 in follow-up on the selective care unit. He is currently sitting up in a chair. Awake and alert in no acute distress. He is improved but not quite back to his baseline. He still has some bronchospasm and wheezing. He is dyspneic with conversation. He remains on DuoNeb ventilations, Pulmicort and Perforomist inhalations, Solu-Medrol. He remains on cefepime. His sputum is positive for Serratia marcescens. Chest x- ray shows bilateral areas of consolidation. Underlying mass in the right hilum not excluded. He has small bilateral pleural effusions. Near complete resolution of the tiny left apical pneumothorax with less than 5% residual pneumothorax. INR 2.1. Glucose 108. He is continued on Demadex and Aldactone. Currently in a +138 mL balance. The patient is seen today September 28, 2023 in follow-up on the regular medical floor. He is currently sitting up in bed having breakfast. Awake and alert in no acute distress. States he is feeling better and nearly back to his baseline. He is maintaining O2 saturation in the 90s on 4 L/min per nasal cannula. He is continued on DuoNeb inhalations, Pulmicort and Perforomist inhalations, Solu- Medrol. Remains on oral diuretics. Remains on cefepime. Sputum culture was positive for Serratia marcescens. Blood cultures revealed no growth. White count 13.1. Hemoglobin 11.0. Platelets 601. INR 2.0. Sodium 134. Potassium 3.9. Bicarb 36. BUN 28. Creatinine 0.7. Glucose 113. Objective - Vital Signs Vital signs: Vital Signs Temp 97.9 F 09/28/23 08:00 Pulse 86 09/28/23 12:17 Resp 17 09/28/23 08:00 BP 133/84 09/28/23 08:00 Pulse Ox 95 09/28/23 09:40 FiO2 Intake & Output 09/27/23 09/28/23 09/28/23 18:59 06:59 18:59 Intake Total 474 Output Total 630 600 Balance -156 -600 Weight 59.9 kg Intake: Oral 474 Output: Urine 630 600 Other: Voiding Method Bedside Commode Bedside Commode Bedside Commode Urinal Urinal Urinal # Voids 1 2 # Bowel Movements 1 3 - Exam GENERAL EXAM: Alert, frail, cachectic 87-year-old male, in no apparent distress. Currently on 4 L of O2 nasal cannula HEAD: Normocephalic and atraumatic EYES: Normal reaction of pupils, equal size. NOSE: Clear with pink turbinates. THROAT: No erythema or exudates. NECK: No masses, no JVD. CHEST: No chest wall deformity. LUNGS: Equal air entry with markedly diminished lung sounds throughout. Bilateral wheezes, rhonchi. CVS: S1 and S2 normal with no audible murmur, irregular rhythm. No extra heart sounds ABDOMEN: No hepatosplenomegaly, active bowel sounds, no guarding or rigidity. SPINE: No scoliosis or deformity SKIN: No rashes CENTRAL NERVOUS SYSTEM: No focal deficits, tone is normal in all 4 extremities. EXTREMITIES: There bilateral lower extremity pitting edema. No clubbing, or cyanosis. Peripheral pulses are intact - Labs CBC & Chem 7: 09/28/23 06:21 09/28/23 06:21 Labs: Abnormal Lab Results - Last 24 Hours (Table) 09/27/23 09/27/23 09/28/23 Range/Units 18:47 20:24 06:21 WBC (4.50-10.00) X 10*3/uL Hgb (13.0-17.0) g/dL Hct (39.6-50.0) % MCH (27.0-32.0) pg MCHC (32.0-37.0) g/dL RDW (11.5-14.5) % Plt Count (140-440) X 10*3/uL PT 19.8 H (10.0-12.5) sec INR 2.0 H (<1.2) Sodium (135-145) mmol/L Chloride (96-109) mmol/L Carbon Dioxide (21.6-31.8) mmol/L Anion Gap (4.00-12.00) mmol/L BUN (9.0-27.0) mg/dL BUN/Creatinine Ratio (12.00-20.00) Ratio Glucose (70-110) mg/dL POC Glucose (mg/dL) 186 H 217 H (70-110) mg/dL Calcium (8.7-10.3) mg/dL Total Bilirubin (0.3-1.2) mg/dL Total Protein (6.2-8.2) g/dL Albumin (3.8-4.9) g/dL Albumin/Globulin Ratio (1.60-3.17) Ratio 09/28/23 09/28/23 09/28/23 Range/Units 06:21 06:21 10:34 WBC 13.16 H (4.50-10.00) X 10*3/uL Hgb 11.0 L (13.0-17.0) g/dL Hct 37.0 L (39.6-50.0) % MCH 24.0 L (27.0-32.0) pg MCHC 29.7 L (32.0-37.0) g/dL RDW 18.2 H (11.5-14.5) % Plt Count 601 H (140-440) X 10*3/uL PT (10.0-12.5) sec INR (<1.2) Sodium 134 L (135-145) mmol/L Chloride 84 L (96-109) mmol/L Carbon Dioxide 36.2 H (21.6-31.8) mmol/L Anion Gap 13.80 H (4.00-12.00) mmol/L BUN 28.2 H (9.0-27.0) mg/dL BUN/Creatinine Ratio 40.29 H (12.00-20.00) Ratio Glucose 113 H (70-110) mg/dL POC Glucose (mg/dL) 144 H (70-110) mg/dL Calcium 8.4 L (8.7-10.3) mg/dL Total Bilirubin 0.2 L (0.3-1.2) mg/dL Total Protein 6.0 L (6.2-8.2) g/dL Albumin 3.5 L (3.8-4.9) g/dL Albumin/Globulin Ratio 1.40 L (1.60-3.17) Ratio Assessment and Plan Assessment: Acute on chronic dyspnea, and hypoxic respiratory failure and the patient is currently on 4 L of oxygen by nasal cannula Right-sided necrotizing pneumonia. CAT scans were done and the patient from December 2022, March 2023 and the most recent CAT scan of the chest that was done on 09/21/2023. It seems that the patient developed a cavitating consolidation of the right lower lobe back in March 2023. This was treated in the hospital with antibiotics. A CAT scan of the chest was done and again that showed diffuse emphysematous changes along with scarring and bronchiectasis. The patient has also peribronchial thickening consistent with COPD. There is a patchy area of consolidation/atelectasis in the right lower l obe and some irregular opacities in the left upper lobe and the left lower lobe associated with atelectasis. Patient is currently on IV cefepime. Procalcitonin level is at 0.11. Sputum culture has shown Serratia marcescens. Repeat chest x-ray shows stable/slightly improved right lung/perihilar c onsolidation/pneumonia. Unintentional weight loss, reportedly lost 30 pounds over a 6 to 9-month ti meframe. History of hemoptysis, currently inactive and stable History of left lower lung nodule, followed up outpatient Chronic ongoing tobacco dependence, still smokes 2 to 3 cigarettes every couple days. Severe chronic obstructive pulmonary disease, with an FEV1 37% of predicted Chronic hypoxemic respiratory failure, secondary to above, normally maintained on 4 L/min nasal cannula while at home. Acute leukocytosis Atrial fibrillation with rapid ventricular rate, And the patient was taken off the Cardizem drip and the patient is currently on oral Cardizem Supratherapeutic INR, recovered and INR is at 2.1, therapeutic History of thoracic aortic aneurysm Bilateral lower extremity edema Plan: The patient was seen and evaluated Labs and medications reviewed Cannot rule out underlying mass in the right hilum May benefit from outpatient PET scan Cleared for discharge from the pulmonary standpoint Complete a course of antibiotics Complete a prednisone taper Continue his home pulmonary medications, oxygen Follow-up with Dr. Zapata in our office in 1 week I have personally seen and examined the patient, performed the documentation and the assessment and plan as written. Number of minutes spent on the visit: 10.
[2023-09-28] MEDS: predniSONE 20 MG TAB PO SCH (17:46)
[2023-09-28] MEDS: WARFARIN 1 MG TAB PO ONE (17:47)
[2023-09-28 18:03] LABS: Glucose,Whole Blood 140 mg/dL (70-110)
[2023-09-28 20:50] LABS: Glucose,Whole Blood 258 mg/dL (70-110)
[2023-09-28 22:36] VITALS: RESP 16
[2023-09-29 04:08] LABS: Glucose,Whole Blood 142 mg/dL (70-110)
[2023-09-29 06:26] LABS: Glucose,Whole Blood 136 mg/dL (70-110)
[2023-09-29 06:58] LABS: INR 1.8 (<1.2); Prothrombin Time 17.9 sec (10.0-12.5)
[2023-09-29] MEDS: TORSEMIDE 20 MG TAB PO SCH (08:25)
[2023-09-29 09:02] LABS: Basophils # (A) 0.03 X 10*3/uL (0.00-0.10); Basophils % (A) 0.2 %; Eosinophils # (A) 0.01 X 10*3/uL (0.04-0.35); Eosinophils % (A) 0.1 %; HCT 34.8 % (39.6-50.0); HGB 10.5 g/dL (13.0-17.0); Lymphocytes # (A) 0.23 X 10*3/uL (0.90-5.00); Lymphocytes % (A) 1.4 %; MCH 24.2 pg (27.0-32.0); MCHC 30.2 g/dL (32.0-37.0); MCV 80.4 FL (80.0-97.0); Mean Platelet Volume 10.1 FL (9.5-12.2); Monocytes # (A) 1.15 X 10*3/uL (0.20-1.00); NRBC Per 100 WBC 0 X 10*3/uL (0.00-0.01); Neutrophils # (A) 14.66 X 10*3/uL (1.80-7.70); Neutrophils % (A) 89.8 %; Platelet Count 499 X 10*3/uL (140-440); RBC 4.33 X 10*6/uL (4.40-5.60); RDW 18.3 % (11.5-14.5); WBC 16.33 X 10*3/uL (4.50-10.00)
[2023-09-29 10:29] LABS: ALT 35 U/L (10-49); AST 36 U/L (14-35); Albumin 3.3 g/dL (3.8-4.9); Alkaline Phosphatase 110 U/L (41-126); BUN/Creat Ratio 40.88 Ratio (12.00-20.00); Blood Urea Nitrogen 32.7 mg/dL (9.0-27.0); Calcium 8.4 mg/dL (8.7-10.3); Carbon Dioxide 42.1 mmol/L (21.6-31.8); Chloride 85 mmol/L (96-109); Globulin 2.2 g/dL (1.6-3.3); Glucose 117 mg/dL (70-110); Potassium 3.7 mmol/L (3.5-5.5); Sodium 135 mmol/L (135-145); Total Bilirubin 0.3 mg/dL (0.3-1.2); Total Protein 5.5 g/dL (6.2-8.2)
[2023-09-29 12:23] LABS: Glucose,Whole Blood 184 mg/dL (70-110)
--- NOTE | 2023-09-29 14:45 | P.PN ---
Subjective Progress Note Date: 09/29/23 Patient is a 87-year-old white male with past medical history significant for paroxysmal atrial fibrillation chronically anticoagulated on warfarin, severe oxygen dependent COPD, thoracic aortic aneurysm, and current ongoing tobacco dependence. Patient has reportedly followed in the past with Dr. Zapata. Of note, patient was recently admitted March, with hemoptysis. He was treated for a right-sided pneumonia. CT of the chest at that time demonstrated a 5.7 x 6 cm masslike consolidation within the right lower lung superior segment. Sputum had isolated Pseudomonas aeruginosa. Follow-up chest x-ray showed slight improvement in the masslike consolidation. No bronchoscopy was done at this time. Patient returned to the emergency department yesterday evening complaining of 3 to 4 days of worsening exertional dyspnea, chest tightness, and wheezing. He does endorse a productive cough with yellow sputum production. Denies sick contacts or recent travel. Denies any fevers. Denies any chest pain. Denies any hemoptysis. His INR was elevated at 9.4. Denies any bleeding at all. He does do continue to smoke a couple cigarettes every couple days. Reportedly he cannot even walk to the bathroom without becoming severely dyspneic. He has noted increased lower extremity swelling. He is on torsemide outpatient and reportedly voids often. Chest x-ray done on admission shows a opacification of the posterior right lung. This needs to be evaluated for possible lung mass. Patient denies any prior history of cancer. Does admit a 30 pound weight loss over the last 6 to 9 months. No change in appetite. Will need to follow-up chest CT with contrast. May need bronchoscopy and airway examination. CBC on arrival: WBC count 13, hemoglobin 10.4, hematocrit 35.2, platelets 534. BMP on arrival: Sodium 132, potassium 4.3, chloride 95, serum bicarb 32, BUN 28, creatinine 0.79, glucose 143. Troponins less than 0.012. NT proBNP 2280. EKG shows atrial fibrillation with rapid ventricular rate. No obvious ischemic changes. Most recent echocardiogram from March, estimated preserved left ventricular ejection fraction of 55 to 60% along with some mild to moderate mitral regurgitation and mild aortic regurgitation. Patient is currently sitting up in bed, on 4 L/min nasal cannula, in no acute distress. SpO2 is 99%. Heart rhythm on bedside monitor still appears atrial fibrillation. Rate is currently 140 bpm. Cardiology is also consulted and is elected to place this patient on Cardizem infusion. Nurses are working on getting this medication from pharmacy. Patient denies any chest pain, lightheadedness, heart palpitations. Denies nausea. Not diaphoretic. Afebrile. Remaining vital signs are stable. 09/22/2023, patient is being seen for a follow-up. Patient is still producing cough with copious amount of thick purulent respiratory secretions. He remains on a combination of Zosyn and vancomycin. Hemodynamically stable. Feels slightly improved compared to yesterday. He is also on DuoNeb nebulized treatments [id number] and IV Solu-Medrol dose of 60 mg every 6 hours. The white cell count is at 17.4 with a hemoglobin 10.7 and a platelet count of 847. Patient was given vitamin K and INR dropped down to 1.5. BUN is at 30 mg time 0.8 and sodium levels at 134 and a potassium level of 4.2. Procalcitonin level was 0.11. Patient is awake and alert and currently is on 40 Suboxone by nasal cannula with a pulse ox of 97%. Chronically debilitated and weak and seems to be quite cachectic with a body mass index of 16.2. The blood cultures are neg ative. Sputum culture still pending. 09/23/2023, the patient is being seen for a follow-up. The patient is being treated for an extensive right lung pneumonia. He remains on IV antibiotics and the patient is currently on IV cefepime. Cultures from the sputum showed Serratia marcescens. The blood culture has been negative x 2. The white cell count is at 13.5 with a hemoglobin 10.2. Platelet count is 765. INR is 1.9. BUN 35 with a creatinine of 0.8 and sodium levels at 135. The patient seems to be less short of breath. Nevertheless, he has significant ongoing respiratory insufficiency. He has ongoing cough, unable to bring up much of sputum as he feels that the sputum is quite trapped in his lungs. Procalcitonin level is at 0.11. No altered mentation. Oxygen requirement remains at 3 L with a pulse ox of 99 to 100%. He remains in atrial fibrillation. 09/24/2023, the patient is being seen for a follow-up. The patient has an extensive right lung pneumonia and a sputum culture was positive for Serratia marcescens. The patient is currently on IV cefepime. Essentially unchanged compared to yesterday. Continues to have thick runny sputum which she is able to cough. He is also using incentive spirometer. He has advanced COPD and his condition is quite debilitated. Not a good candidate for bronchoscopy at this point in time. WBC count at 13.3 with a hemoglobin 10.5 and a platelet count of 745. INR is at 3. BUN is 37 with a creatinine of 0.9 and sodium levels at 133. The patient is currently on 4 L with a pulse ox of 96%. Appetite is adequate. Repeat chest x-ray findings from today shows stable right perihilar/lower lobe pulmonary infiltrate/pneumonia which probably slightly improved compared to the chest x-ray that was done at time of admission. There is background COPD. 09/25/2023, patient is being seen for a follow-up. Condition is still unchanged and he continues to have shortness of breath and cough and congestion. Nevertheless, the overall sputum production is improved compared to yesterday. The previous sputum sample showed Serratia marcescens and the blood cultures have been negative. The patient remains on IV cefepime. No new complaints otherwise for now. Using the flutter valve. INR is therapeutic at 3.5. Remains on bronchodilators. Remains on Pulmicort and Perforomist nebulized treatments twice a day. Remains on IV Solu-Medrol 40 mg every 8 hours. Anticoagulation is being managed by the medical group. Remains on Lasix 20 mg IV every 12 hours. Fluid balance is negative and the patient is producing adequate amount of urine output. The patient is seen today September 26, 2023 in follow-up on the selective care unit. He is currently sitting up at the bedside. Awake and alert in no acute distress. He is dyspneic with conversation. Dyspneic with minimal exertion. His sputum culture was positive for Serratia marcescens. He remains on cefepime. 655. INR 2.7. Sodium 131. Potassium 4.1. Bicarb 37. BUN 33. C reatinine 0.69. Glucose 95. He is continued on DuoNeb ventilations, Pulmicort inhalations, use an ax, Solu-Medrol. Remains on IV diuretics. Currently net - 600 mL balance. The patient is seen today September 27, 2023 in follow-up on the selective care unit. He is currently sitting up in a chair. Awake and alert in no acute distress. He is improved but not quite back to his baseline. He still has some bronchospasm and wheezing. He is dyspneic with conversation. He remains on DuoNeb ventilations, Pulmicort and Perforomist inhalations, Solu-Medrol. He remains on cefepime. His sputum is positive for Serratia marcescens. Chest x- ray shows bilateral areas of consolidation. Underlying mass in the right hilum not excluded. He has small bilateral pleural effusions. Near complete resolution of the tiny left apical pneumothorax with less than 5% residual pneumothorax. INR 2.1. Glucose 108. He is continued on Demadex and Aldactone. Currently in a +138 mL balance. The patient is seen today September 28, 2023 in follow-up on the regular medical floor. He is currently sitting up in bed having breakfast. Awake and alert in no acute distress. States he is feeling better and nearly back to his baseline. He is maintaining O2 saturation in the 90s on 4 L/min per nasal cannula. He is continued on DuoNeb inhalations, Pulmicort and Perforomist inhalations, Solu- Medrol. Remains on oral diuretics. Remains on cefepime. Sputum culture was positive for Serratia marcescens. Blood cultures revealed no growth. White count 13.1. Hemoglobin 11.0. Platelets 601. INR 2.0. Sodium 134. Potassium 3.9. Bicarb 36. BUN 28. Creatinine 0.7. Glucose 113. The patient is seen today September 29, 2023 in follow-up on the regular medical floor. He is awake and alert in no acute distress. Sitting up at the bedside. Denies any worsening shortness of breath, cough or congestion. Continued O2 saturations in the 90s on 4 L/min per nasal cannula. He is continued on DuoNeb ventilations, Pulmicort and performing scintillations, prednisone taper. He remains on Mucinex. Continue on antibiotics in the form of cefepime. Anticoagulated with warfarin. White count 16.3. Hemoglobin 10.5. Platelets 499. INR 1.8. Sodium 135. Potassium 3.7. Bicarb 42. BUN 33. Creatinine 0.8. Glucose 117. Objective - Vital Signs Vital signs: Vital Signs Temp 97.7 F 09/29/23 07:44 Pulse 80 09/29/23 11:30 Resp 16 09/29/23 07:44 BP 136/87 09/29/23 07:44 Pulse Ox 94 L 09/29/23 07:44 FiO2 Intake & Output 09/28/23 09/29/23 09/29/23 18:59 06:59 18:59 Intake Total 236 838 Output Total 400 800 675 Balance -164 -800 163 Weight 59.9 kg Intake: Oral 236 838 Output: Urine 400 800 675 Other: Voiding Method Bedside Commode Bedside Commode Bedside Commode Urinal Urinal Urinal # Voids 2 # Bowel Movements 3 - Exam GENERAL EXAM: Alert, frail, cachectic 87-year-old male, sitting up in bed, in no apparent distress. Currently on 4 L of O2 nasal cannula HEAD: Normocephalic and atraumatic EYES: Normal reaction of pupils, equal size. NOSE: Clear with pink turbinates. THROAT: No erythema or exudates. NECK: No masses, no JVD. CHEST: No chest wall deformity. LUNGS: Equal air entry with markedly diminished lung sounds throughout. CVS: S1 and S2 normal with no audible murmur, irregular rhythm. No extra heart sounds ABDOMEN: No hepatosplenomegaly, active bowel sounds, no guarding or rigidity. SPINE: No scoliosis or deformity SKIN: No rashes CENTRAL NERVOUS SYSTEM: No focal deficits, tone is normal in all 4 extremities. EXTREMITIES: There bilateral lower extremity pitting edema. No clubbing, or cyanosis. Peripheral pulses are intact - Labs CBC & Chem 7: 09/29/23 06:11 09/29/23 06:11 Labs: Abnormal Lab Results - Last 24 Hours (Table) 09/28/23 09/28/23 09/29/23 Range/Units 18:02 20:49 04:07 WBC (4.50-10.00) X 10*3/uL RBC (4.40-5.60) X 10*6/uL Hgb (13.0-17.0) g/dL Hct (39.6-50.0) % MCH (27.0-32.0) pg MCHC (32.0-37.0) g/dL RDW (11.5-14.5) % Plt Count (140-440) X 10*3/uL Immature Gran # (0.00-0.04) X 10*3/uL Neutrophils # (1.80-7.70) X 10*3/uL Lymphocytes # (0.90-5.00) X 10*3/uL Monocytes # (0.20-1.00) X 10*3/uL Eosinophils # (0.04-0.35) X 10*3/uL PT (10.0-12.5) sec INR (<1.2) Chloride (96-109) mmol/L Carbon Dioxide (21.6-31.8) mmol/L BUN (9.0-27.0) mg/dL BUN/Creatinine Ratio (12.00-20.00) Ratio Glucose (70-110) mg/dL POC Glucose (mg/dL) 140 H 258 H 142 H (70-110) mg/dL Calcium (8.7-10.3) mg/dL AST (14-35) U/L Total Protein (6.2-8.2) g/dL Albumin (3.8-4.9) g/dL Albumin/Globulin Ratio (1.60-3.17) Ratio 09/29/23 09/29/23 09/29/23 Range/Units 06:11 06:11 06:11 WBC 16.33 H (4.50-10.00) X 10*3/uL RBC 4.33 L (4.40-5.60) X 10*6/uL Hgb 10.5 L (13.0-17.0) g/dL Hct 34.8 L (39.6-50.0) % MCH 24.2 L (27.0-32.0) pg MCHC 30.2 L (32.0-37.0) g/dL RDW 18.3 H (11.5-14.5) % Plt Count 499 H (140-440) X 10*3/uL Immature Gran # 0.25 H (0.00-0.04) X 10*3/uL Neutrophils # 14.66 H (1.80-7.70) X 10*3/uL Lymphocytes # 0.23 L (0.90-5.00) X 10*3/uL Monocytes # 1.15 H (0.20-1.00) X 10*3/uL Eosinophils # 0.01 L (0.04-0.35) X 10*3/uL PT 17.9 H (10.0-12.5) sec INR 1.8 H (<1.2) Chloride 85 L (96-109) mmol/L Carbon Dioxide 42.1 A* (21.6-31.8) mmol/L BUN 32.7 H (9.0-27.0) mg/dL BUN/Creatinine Ratio 40.88 H (12.00-20.00) Ratio Glucose 117 H (70-110) mg/dL POC Glucose (mg/dL) (70-110) mg/dL Calcium 8.4 L (8.7-10.3) mg/dL AST 36 H (14-35) U/L Total Protein 5.5 L (6.2-8.2) g/dL Albumin 3.3 L (3.8-4.9) g/dL Albumin/Globulin Ratio 1.50 L (1.60-3.17) Ratio 09/29/23 09/29/23 Range/Units 06:25 12:21 WBC (4.50-10.00) X 10*3/uL RBC (4.40-5.60) X 10*6/uL Hgb (13.0-17.0) g/dL Hct (39.6-50.0) % MCH (27.0-32.0) pg MCHC (32.0-37.0) g/dL RDW (11.5-14.5) % Plt Count (140-440) X 10*3/uL Immature Gran # (0.00-0.04) X 10*3/uL Neutrophils # (1.80-7.70) X 10*3/uL Lymphocytes # (0.90-5.00) X 10*3/uL Monocytes # (0.20-1.00) X 10*3/uL Eosinophils # (0.04-0.35) X 10*3/uL PT (10.0-12.5) sec INR (<1.2) Chloride (96-109) mmol/L Carbon Dioxide (21.6-31.8) mmol/L BUN (9.0-27.0) mg/dL BUN/Creatinine Ratio (12.00-20.00) Ratio Glucose (70-110) mg/dL POC Glucose (mg/dL) 136 H 184 H (70-110) mg/dL Calcium (8.7-10.3) mg/dL AST (14-35) U/L Total Protein (6.2-8.2) g/dL Albumin (3.8-4.9) g/dL Albumin/Globulin Ratio (1.60-3.17) Ratio Assessment and Plan Assessment: Acute on chronic dyspnea, and hypoxic respiratory failure and the patient is currently on 4 L of oxygen by nasal cannula Right-sided necrotizing pneumonia. CAT scans were done and the patient from December 2022, March 2023 and the most recent CAT scan of the chest that was done on 09/21/2023. It seems that the patient developed a cavitating consolidation of the right lower lobe back in March 2023. This was treated in the hospital with antibiotics. A CAT scan of the chest was done and again that showed diffuse emphysematous changes along with scarring and bronchiectasis. The patient has also peribronchial thickening consistent with COPD. There is a patchy area of consolidation/atelectasis in the right lower lobe and some irregular opacities in the left upper lobe and the left lower lobe associated with atelectasis. Patient is currently on IV cefepime. Procalcitonin level is at 0.11. Sputum culture has shown Serratia marcescens. Repeat chest x-ray shows stable/slightly improved right lung/perihilar consolidation/pneumonia. Unintentional weight loss, reportedly lost 30 pounds over a 6 to 9-month timeframe. History of hemoptysis, currently inactive and stable History of left lower lung nodule, followed up outpatient Chronic ongoing tobacco dependence, still smokes 2 to 3 cigarettes every couple days. Severe chronic obstructive pulmonary disease, with an FEV1 37% of predicted Chronic hypoxemic respiratory failure, secondary to above, normally maintained on 4 L/min nasal cannula while at home. Acute leukocytosis Atrial fibrillation with rapid ventricular rate, And the patient was taken off the Cardizem drip and the patient is currently on oral Cardizem Supratherapeutic INR, recovered and INR is at 1.8 History of thoracic aortic aneurysm Bilateral lower extremity edema Poor overall functional performance based on the above-mentioned multiple comorbidities Plan: The patient was seen and evaluated Labs and medications reviewed May benefit from outpatient PET scan Cleared for discharge Complete a course of antibiotics Complete a prednisone taper Continue his home pulmonary medications, oxygen Educated regarding the importance of complete smoking cessation Overall prognosis remains guarded Follow-up with Dr. Zapata in our office in 1 week I have personally seen and examined the patient, performed the documentation and the assessment and plan as written. Number of minutes spent on the visit: 10.
--- NOTE | 2023-09-29 14:54 | P.PN ---
Subjective Progress Note Date: 09/28/23 This is an 87-year-old male with a previous medical history significant for 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 failure on oxygen at home due to severe COPD with FEV1 of 37% of predicted, chronic atrial fibrillation, thoracic aortic aneurysm, abdominal aortic aneurysm, chronic diastolic heart failure, chronic pulmonary hypertension, patient was recently hospitalized at [facility] back in March 2023 after he was admitted for what appears to be a right lower lobe Pseudomonas pneumonia involving the superior segment of the right lower lobe and it showed l sharron a masslike consolidation back on the CT scan and he was treated and his x- ray showed improvement but never had a bronchoscopy, patient is following regularly with Dr. Zapata as an outpatient, patient stated that he has been feeling sick for the last 2 to 4 weeks and when I asked him why he did not show up to the ER or he did not come to the hospital he stated that his daughter was very sick in the hospital and she has been hospitalized for quite some times, she was supposed to be discharged to subacute rehabilitation because she was sick with some sort of pneumonia, and his was split between his daughter and himself, yesterday patient could not breathe anymore, he has been having fev er chills coughing yellow-green phlegm production, so patient presented to the emergency department at [facility] with acute shortness breath associated with increased coughing of yellowish and green sputum has been having increased shortness breath over the last 3 days, he was complain of some fever and chills, he also was complaining of increased fatigue tiredness and weight loss, patient was seen and evaluated in emergency room and he was found to have leukocytosis, a 13,000, he also found to have coagulopathy due to his INR being elevated in the range of 9.7 patient had a chest x-ray that did show evidence of right lower lobe pneumonia, bilateral pleural effusion as well as cardiomegaly, patient initially was started on IV Lasix 20 mg IV push every 12 hours, patient has been requiring quite a bit of oxygen, he was seen in consultation by cardiology who recommended to continue current treatment plan, pulmonary medicine saw the patient, underwent CT scan of the chest that showed evidence of superior segment of the right lower lobe consolidative mass rule out malignancy, possibly cavitating pneumonia, he was started on vancomycin as well as Zosyn, sputum culture will be obtained, blood culture continue oxygen support, continue IV steroid in the form of Solu-Medrol, continue nebulized treatment, patient will be admitted to a telemetry unit, will continue to follow-up with the patient very closely. 09/21: Patient sitting up in bed in minimal respiratory distress, he continues to be on oxygen, he continues to be on IV antibiotic in the form of vancomycin as well as Zosyn, laboratory evaluation are better, his INR is down to 1.5, we will restart the patient back on his Coumadin, monitor his INR keep between 2.5 and 3.5, patient continues to have some coughing, yellow to green phlegm production, he has no fever or chills last night, he has no abdominal pain, nausea vomiting or diarrhea, we will continue with current treatment plan, patient has been followed by pulmonary medicine as well as cardiology, will admit the patient to a telemetry unit. 09/22. Patient seen and examined. Patient continues to get short of breath on minimal exertion. Currently on 4 L of oxygen. Patient complaining of cough 09/23. Patient seen and examined. Blood work done this morning showed WBC 13.3, hemoglobin 10.5, platelet count 745, sodium 123, potassium 4.6, BUN 37, cre atinine 0.90, AST 44, ALT 35. Patient continues to be on 4 L of oxygen. Gets short of breath on minimal exertion. 09/24. Patient seen and examined. Continues to be on 4 L of oxygen. Continues to get tachypneic on exertion. States he is still feeling weak. 09/25: Patient sitting up in bed at this time, continues to be on 4 L of oxygen and tachypneic. Patient continues to have quite a bit of thick sputum. Patient is being followed by pulmonology and is not a good candidate for bronchoscopy at this time. Chest x-ray reviewed today shows bilateral areas of consolidation, underlying mass in the right ilium not excluded, small bilateral pleural effusion, and near complete resolution of left apical pneumothorax. White count is 14.1, PT 27, INR 2.7. Discontinue Lasix 20 mg IV every 12 hours and change to torsemide 40 mg PO daily, decrease to Solu-Medrol 40 mg IV every 12 hours, as well as cefepime 2 g every 8 hours. Continue breathing treatments as ordered. We will add nystatin swish and swallow 4 times daily. We will continue to monitor closely along with cardiology and pulmonology. 09/26: Patient is sitting up in chair was seen earlier by Pulmonary and his Solu- Medrol was increased to 60 mg IV push every 6 hours, he has been maintained on oxygen at 4 L nasal cannula, he continues to cough less phlegm production, he is less short of breath, he has been seen in consultation by physical therapy as well, the patient is planning to go back home, and follow-up with us as an outpatient, patient is resistant to the idea of going to a subacute rehabilitation at this point in time, his activity is limited, even at home, he uses a walker most of the time, and he does ambulate for short distance at home. 09/27: Patient is sitting up in the chair no apparent distress, he continues to be on 4 L nasal cannula, he is ambulating better today, he denies any chest pain, less short of breath, he continues to be dyspneic on exertion, he has some cough not as bad, has not bringing up as much phlegm, he has been tolerating treatment very well, we will monitor the patient labs very closely, monitor the patient INR very closely. Patient will likely be discharged home in the next 24 hours. REVIEW OF SYSTEMS: CONSTITUTIONAL: No fever, no malaise,. CARDIOVASCULAR: No chest pain, no palpitations, no syncope. PULMONARY: Positive shortness of breath, productive cough. GASTROINTESTINAL: No diarrhea, no nausea, no vomiting, no abdominal pain. NEUROLOGICAL: No headaches, no weakness, PHYSICAL EXAMINATION: GENERAL: The patient is alert and oriented x3, cachectic, chronically ill looking HEENT: Pupils are round and equally reacting to light. EOMI. No scleral icterus. No conjunctival pallor. Normocephalic, atraumatic. No pharyngeal erythema. No thyromegaly. CARDIOVASCULAR: First heart sound is depressed, second heart sounds normal, irregularly irregular, other systolic ejection murmur 2/6 located in the left sternal border. PULMONARY: Decreased breath sound at the bases, few rhonchi, minimal expiratory wheezes, minimal intercostal retractions. ABDOMEN: Soft, nontender, nondistended, normoactive bowel sounds. No palpable organomegaly. MUSCULOSKELETAL: No joint swelling or deformity. EXTREMITIES: There is +1 edema, no calf tenderness, dorsalis pedis +1 bilat erally. NEUROLOGICAL: Patient is awake alert and oriented x 3, cranial nerves II to XII appear grossly intact, muscle power were 4 out of 5 in upper extremities and 3 out of 5 in bilateral lower extremities. SKIN: No rashes. ASSESSEMENT AND PLAN: 1. Acute on chronic hypoxemic respiratory failure due to right lower lobe cavitating pneumonia and possible mass. Continue cefepime 2 g every 8 hours, respiratory treatments as ordered, continue on 4 L nasal cannula. Continue patient on continue IV antibiotic, continue prednisone 40 mg orally once every day continue flutter valve, continue sinus primary, monitor the patient very closely, hopefully home in the next few days. 2. Acute on chronic diastolic heart failure with severe pulmonary hypertension. Maintain strict intake and output, daily weights, continue torsemide 40 mg once daily. Continue Toprol and Cardizem. 3. Chronic atrial fibrillation with rapid ventricular response. Continue patient on metoprolol 25 mg orally once every day as well as Cardizem 30 mg orally 3 times every day, continue pharmacy dose Coumadin. 4. Leukocytosis likely related to right lower lobe cavitating pneumonia in the superior segment. Continue IV antibiotic, continue to monitor the patient CBC. 5. Coagulopathy due to Coumadin use and sepsis. Continue pharmacy dose Coumadin. 6. Thoracic aortic aneurysm. Has been under the care of cardiology CT angiography is up-to-date. Has been stable at 4.5 cm. 7. Abdominal aortic aneurysm. Stable at 3.8 cm. 8. Bullous pemphigoid. Is stable. 9. DVT prophylaxis. Continue Coumadin. 10. GI prophylaxis. Continue patient on Protonix 40 mg orally once every day. 11. Hopefully home in AM Objective - Vital Signs Vital signs: Vital Signs Temp 97.7 F 09/28/23 14:10 Pulse 78 09/28/23 16:23 Resp 17 09/28/23 14:10 BP 104/65 09/28/23 14:10 Pulse Ox 95 09/28/23 14:10 FiO2 Intake & Output 09/27/23 09/28/23 09/28/23 18:59 06:59 18:59 Intake Total 474 Output Total 630 600 400 Balance -156 600 -400 Weight 59.9 kg Intake: Oral 474 Output: Urine 630 600 400 Other: Voiding Method Bedside Commode Bedside Commode Bedside Commode Urinal Urinal Urinal # Voids 1 2 # Bowel Movements 1 3 - Labs CBC & Chem 7: 09/29/23 06:11 09/29/23 06:11 Labs: Abnormal Lab Results - Last 24 Hours (Table) 09/27/23 09/27/23 09/28/23 Range/Units 18:47 20:24 06:21 WBC (4.50-10.00) X 10*3/uL Hgb (13.0-17.0) g/dL Hct (39.6-50.0) % MCH (27.0-32.0) pg MCHC (32.0-37.0) g/dL RDW (11.5-14.5) % Plt Count (140-440) X 10*3/uL PT 19.8 H (10.0-12.5) sec INR 2.0 H (<1.2) Sodium (135-145) mmol/L Chloride (96-109) mmol/L Carbon Dioxide (21.6-31.8) mmol/L Anion Gap (4.00-12.00) mmol/L BUN (9.0-27.0) mg/dL BUN/Creatinine Ratio (12.00-20.00) Ratio Glucose (70-110) mg/dL POC Glucose (mg/dL) 186 H 217 H (70-110) mg/dL Calcium (8.7-10.3) mg/dL Total Bilirubin (0.3-1.2) mg/dL Total Protein (6.2-8.2) g/dL Albumin (3.8-4.9) g/dL Albumin/Globulin Ratio (1.60-3.17) Ratio 09/28/23 09/28/23 09/28/23 Range/Units 06:21 06:21 10:34 WBC 13.16 H (4.50-10.00) X 10*3/uL Hgb 11.0 L (13.0-17.0) g/dL Hct 37.0 L (39.6-50.0) % MCH 24.0 L (27.0-32.0) pg MCHC 29.7 L (32.0-37.0) g/dL RDW 18.2 H (11.5-14.5) % Plt Count 601 H (140-440) X 10*3/uL PT (10.0-12.5) sec INR (<1.2) Sodium 134 L (135-145) mmol/L Chloride 84 L (96-109) mmol/L Carbon Dioxide 36.2 H (21.6-31.8) mmol/L Anion Gap 13.80 H (4.00-12.00) mmol/L BUN 28.2 H (9.0-27.0) mg/dL BUN/Creatinine Ratio 40.29 H (12.00-20.00) Ratio Glucose 113 H (70-110) mg/dL POC Glucose (mg/dL) 144 H (70-110) mg/dL Calcium 8.4 L (8.7-10.3) mg/dL Total Bilirubin 0.2 L (0.3-1.2) mg/dL Total Protein 6.0 L (6.2-8.2) g/dL Albumin 3.5 L (3.8-4.9) g/dL Albumin/Globulin Ratio 1.40 L (1.60-3.17) Ratio // Range/Units 18:02 WBC (4.50-10.00) X 10*3/uL Hgb (13.0-17.0) g/dL Hct (39.6-50.0) % MCH (27.0-32.0) pg MCHC (32.0-37.0) g/dL RDW (11.5-14.5) % Plt Count (140-440) X 10*3/uL PT (10.0-12.5) sec INR (<1.2) Sodium (135-145) mmol/L Chloride (96-109) mmol/L Carbon Dioxide (21.6-31.8) mmol/L Anion Gap (4.00-12.00) mmol/L BUN (9.0-27.0) mg/dL BUN/Creatinine Ratio (12.00-20.00) Ratio Glucose (70-110) mg/dL POC Glucose (mg/dL) 140 H (70-110) mg/dL Calcium (8.7-10.3) mg/dL Total Bilirubin (0.3-1.2) mg/dL Total Protein (6.2-8.2) g/dL Albumin (3.8-4.9) g/dL Albumin/Globulin Ratio (1.60-3.17) Ratio
--- NOTE | 2023-09-29 14:57 | P.DS ---
Providers Date of admission: 09/20/23 19:40 Expected date of discharge: 09/29/23 Attending physician: Eugene Todd Consults: 09/20/23 19:43 Consult Physician Urgent Consulting Provider: Forrest Palm Consult Reason/Comments: COPD exacerbation, lung mass Do you want consulting provider notified?: Yes Primary care physician: Eugene Todd [facility] Course: This is an 87-year-old male with a previous medical history significant for 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 failure on oxygen at home due to severe COPD with FEV1 of 37% of predicted, chronic atrial fibrillation, thoracic aortic aneurysm, abdominal aortic aneurysm, chronic diastolic heart failure, chronic pulmonary hypertension, patient was recently hospitalized at [facility] back in March 2023 after he was admitted for what appears to be a right lower lobe Pseudomonas pneumonia involving the superior segment of the right lower lobe and it showed like a masslike consolidation back on the CT scan and he was treated and his x- ray showed improvement but never had a bronchoscopy, patient is following regularly with Dr. Zapata as an outpatient, patient stated that he has been feeling sick for the last 2 to 4 weeks and when I asked him why he did not show up to the ER or he did not come to the hospital he stated that his daughter was very sick in the hospital and she has been hospitalized for quite some times, she was supposed to be discharged to subacute rehabilitation because she was sick with some sort of pneumonia, and his was split between his daughter and himself, yesterday patient could not breathe anymore, he has been having fever chills coughing yellow-green phlegm production, so patient presented to the emergency department at [facility] with acute shortness breath associated with increased coughing of yellowish and green sputum has been having increased shortness breath over the last 3 days, he was complain of some fever and chills, he also was complaining of increased fatigue tiredness and weight loss, patient was seen and evaluated in emergency room and he was found to have leukocytosis, a 13,000, he also found to have coagulopathy due to his INR being elevated in the range of 9.7 patient had a chest x-ray that did show evidence of right lower lobe pneumonia, bilateral pleural effusion as well as cardiomegaly, patient initially was started on IV Lasix 20 mg IV push every 12 hours, patient has been requiring quite a bit of oxygen, he was seen in consultation by cardiology who recommended to continue current treatment plan, pulmonary medicine saw the patient, underwent CT scan of the chest that showed evidence of superior segment of the right lower lobe consolidative mass rule out malignancy, possibly cavitating pneumonia, he was started on vancomycin as well as Zosyn, sputum culture will be obtained, blood culture continue oxygen support, continue IV steroid in the form of Solu-Medrol, continue nebulized treatment, patient will be admitted to a telemetry unit, will continue to follow-up with the patient very closely. 09/21: Patient sitting up in bed in minimal respiratory distress, he continues to be on oxygen, he continues to be on IV antibiotic in the form of vancomycin as well as Zosyn, laboratory evaluation are better, his INR is down to 1.5, we will restart the patient back on his Coumadin, monitor his INR keep between 2.5 and 3.5, patient continues to have some coughing, yellow to green phlegm production, he has no fever or chills last night, he has no abdominal pain, nausea vomiting or diarrhea, we will continue with current treatment plan, patient has been followed by pulmonary medicine as well as cardiology, will admit the patient to a telemetry unit. 09/22. Patient seen and examined. Patient continues to get short of breath on minimal exertion. Currently on 4 L of oxygen. Patient complaining of cough 09/23. Patient seen and examined. Blood work done this morning showed WBC 13.3, hemoglobin 10.5, platelet count 745, sodium 123, potassium 4.6, BUN 37, creatinine 0.90, AST 44, ALT 35. Patient continues to be on 4 L of oxygen. Gets short of breath on minimal exertion. 09/24. Patient seen and examined. Continues to be on 4 L of oxygen. Continues to get tachypneic on exertion. States he is still feeling weak. 09/25: Patient sitting up in bed at this time, continues to be on 4 L of oxygen and tachypneic. Patient continues to have quite a bit of thick sputum. Patient is being followed by pulmonology and is not a good candidate for bronchoscopy at this time. Chest x-ray reviewed today shows bilateral areas of consolidation, underlying mass in the right ilium not excluded, small bilateral pleural effusion, and near complete resolution of left apical pneumothorax. White count is 14.1, PT 27, INR 2.7. Discontinue Lasix 20 mg IV every 12 hours and change to torsemide 40 mg PO daily, decrease to Solu-Medrol 40 mg IV every 12 hours, as well as cefepime 2 g every 8 hours. Continue breathing treatments as ordered. We will add nystatin swish and swallow 4 times daily. We will continue to monitor closely along with cardiology and pulmonology. 09/26: Patient is sitting up in chair was seen earlier by Pulmonary and his Solu- Medrol was increased to 60 mg IV push every 6 hours, he has been maintained on oxygen at 4 L nasal cannula, he continues to cough less phlegm production, he is less short of breath, he has been seen in consultation by physical therapy as well, the patient is planning to go back home, and follow-up with us as an outpatient, patient is resistant to the idea of going to a subacute rehabilitation at this point in time, his activity is limited, even at home, he uses a walker most of the time, and he does ambulate for short distance at home. 09/27: Patient is sitting up in the chair no apparent distress, he continues to be on 4 L nasal cannula, he is ambulating better today, he denies any chest pain, less short of breath, he continues to be dyspneic on exertion, he has some cough not as bad, has not bringing up as much phlegm, he has been tolerating treatment very well, we will monitor the patient labs very closely, monitor the patient INR very closely. Patient will likely be discharged home in the next 24 hours. 09/28: Patient is sitting up in a chair he continues to be on 4 L nasal cannula, he appears to be at baseline, he was cleared by pulmonary medicine to be discharged home, he is complaining of loose stool due to his antibiotic, he denies any chest pain, less short of breath, less coughing, he has no edema in both lower extremities, patient diuretics was placed on hold due to elevated carbon dioxide to 42, patient appears to be contracted alkalosis we will increase oral intake of fluid, hold diuretics for today, restart the patient on his diuretics tomorrow morning, patient will be placed on torsemide 20 mg once every day as well as spironolactone 12.5 mg once every day, patient was advised along with his family at the bedside to start drinking Ensure at least twice every day, this is not a meal replacement this in addition to his breakfast lunch and dinner, and he will be getting a wheelchair light wheelchair from [facility] to be delivered to his house. I will follow-up with the patient as an outpatient in 1 week, patient will follow-up with his home health caregiver in about 1 to 2 weeks. Patient will go for a PET scan as an outpatient. Discharge diagnoses: 1. Acute on chronic hypoxemic respiratory failure due to right lower lobe cavitating pneumonia and possible mass and severe underlying COPD. 2. Acute on chronic diastolic heart failure with severe pulmonary hypertension. 3. Chronic atrial fibrillation with rapid ventricular response. 4. Leukocytosis likely related to right lower lobe cavitating pneumonia in the superior segment. 5. Coagulopathy due to Coumadin use and sepsis. 6. Thoracic aortic aneurysm. 7. Abdominal aortic aneurysm. 8. Bullous pemphigoid. Is stable. 9. Severe protein calorie malnutrition. 10. Medical debility. 11. Contraction alkalosis. Patient Condition at Discharge: Serious Plan - Discharge Summary New Discharge Prescriptions: No Action Warfarin [Coumadin] 5 mg PO FR@2100 Flecainide [Tambocor] 50 mg PO Q12HR Acetaminophen [Tylenol] 1,000 mg PO QID PRN PRN Reason: Pain Or Fever > 100.5 Spironolactone [Aldactone] 25 mg PO DAILY Multivitamins, Thera [Multivitamin (formulary)] 1 tab PO DAILY Magnesium Hydroxide [Milk of Magnesia] 2,400 mg PO ONCE PRN PRN Reason: Constipation Warfarin [Coumadin] 2.5 mg PO SUMOTUWETHSA@2100 Albuterol Sulfate [Albuterol Sulfate Hfa] 2 puff INHALATION RT-QID PRN PRN Reason: Shortness Of Breath Ipratropium-Albuterol Nebulize [Duoneb 0.5 mg-3 mg/3 ml Soln] 3 ml INHALATION RT-QID Torsemide [Demadex] 20 mg PO DAILY Discharge Medication List Flecainide [Tambocor] 50 mg PO Q12HR 09/27/17 [History] Warfarin [Coumadin] 5 mg PO FR@2100 09/27/17 [History] Acetaminophen [Tylenol] 1,000 mg PO QID PRN 05/21/20 [History] Albuterol Sulfate [Albuterol Sulfate Hfa] 2 puff INHALATION RT-QID PRN 10/19/20 [History] Ipratropium-Albuterol Nebulize [Duoneb 0.5 mg-3 mg/3 ml Soln] 3 ml INHALATION RT-QID 03/21/23 [History] Multivitamins, Thera [Multivitamin (formulary)] 1 tab PO DAILY 03/21/23 [History] Spironolactone [Aldactone] 25 mg PO DAILY 03/21/23 [History] Magnesium Hydroxide [Milk of Magnesia] 2,400 mg PO ONCE PRN 09/20/23 [History] Torsemide [Demadex] 20 mg PO DAILY 09/20/23 [History] Warfarin [Coumadin] 2.5 mg PO SUMOTUWETHSA@2100 09/20/23 [History] Follow up Appointment(s)/Referral(s): Eugene Todd MD [Primary Care Provider] - 1-2 days John Zapata DO [Doctor of Osteopathic Medicine] - 10/10/23 9:30 am [facility]NON[facility]STAFF] - 1 Week (Agency will call 24 to 48 hours after discharge to schedule a visit. )
[2023-09-29 15:56] VITALS: BP 105/62; PULSE 77; TEMP 97.4
[2023-09-29] MEDS ORDERED: WARFARIN 1.5 MG TAB PO ONE (18:00)
== END 2023-09-29 16:18 | disposition home health service (06) | DRG 871 ==
LOC: EC 18:08 → 3SCARD 19:40 → 6NMEDSUR 09-27 11:55
PROVIDERS: ADMIT Internal Medicine; ATTEND Internal Medicine
PROC: 3E033RZ Introduction of Antiarrhythmic into Peripheral Vein, Percutaneous Approach (ICD-10-PCS; principal; 2023-09-21)
DX: A41.9 Sepsis, unspecified organism (principal); E43 Unspecified severe protein-calorie malnutrition; J96.21 Acute and chronic respiratory failure with hypoxia; J85.0 Gangrene and necrosis of lung; J15.69 Pneumonia due to other Gram-negative bacteria; I50.33 Acute on chronic diastolic (congestive) heart failure; L12.0 Bullous pemphigoid; J44.0 Chronic obstructive pulmonary disease with (acute) lower respiratory infection; J44.1 Chronic obstructive pulmonary disease with (acute) exacerbation; Z68.1 Body mass index [BMI] 19.9 or less, adult; D68.9 Coagulation defect, unspecified; R64 Cachexia; E87.3 Alkalosis; I48.21 Permanent atrial fibrillation; I48.92 Unspecified atrial flutter; J98.11 Atelectasis; J47.0 Bronchiectasis with acute lower respiratory infection; I27.20 Pulmonary hypertension, unspecified; I11.0 Hypertensive heart disease with heart failure; I71.21 Aneurysm of the ascending aorta, without rupture; I71.40 Abdominal aortic aneurysm, without rupture, unspecified; I34.0 Nonrheumatic mitral (valve) insufficiency; Z99.81 Dependence on supplemental oxygen; M19.90 Unspecified osteoarthritis, unspecified site; R91.1 Solitary pulmonary nodule; T45.515A Adverse effect of anticoagulants, initial encounter; M48.56XS Collapsed vertebra, not elsewhere classified, lumbar region, sequela of fracture; F17.210 Nicotine dependence, cigarettes, uncomplicated; Z71.6 Tobacco abuse counseling; Z79.01 Long term (current) use of anticoagulants; Z79.899 Other long term (current) drug therapy; Z71.3 Dietary counseling and surveillance
CPT/HCPCS: 36415; 71045; 71046; 71260; 80053; 82565; 82803; 83605; 83735; 83880; 84145; 84484; 85025; 85027; 85610; 85730; 86738; 87040; 87070; 87077; 87186; 87205; 87449; 93005; 94640; 94668; 94760; 96365; 96366; 96367; 96368; 96375; 96376; 99291

== ENCOUNTER 2023-10-03 17:40 | Inpatient (IN) | payer MEDICARE ==
--- NOTE | 2023-10-03 18:08 | ED ---
General Adult HPI - General Source: patient, EMS, RN notes reviewed, old records reviewed Mode of arrival: EMS <Ras Marx - Last Filed: 10/03/23 21:45> <Ethel Ferrell - Last Filed: 10/04/23 03:55> - General Chief complaint: Abdominal Pain Stated complaint: afib Time Seen by Provider: 10/03/23 17:42 - History of Present Illness Initial comments: This is an 87-year-old male who presents to the emergency department with a past medical history significant for COPD patient also has a recent history significant for pneumonia for which she just got out of the hospital. Patient states about 2 days ago he started having left sided lower abdominal pain. Patient denies any vomiting or diarrhea. Patient states he got significant so he called EMS today. When ambulance arrived they noted he was in A-fib and RVR and he appeared to be short of breath. Patient states he still significantly short of breath and coughing up quite a bit of sputum. Patient denies any chest pain. Patient denies any vomiting or diarrhea. Patient denies any recent fever chills (Ras Marx) - Related Data Home Medications Medication Instructions Recorded Confirmed Acetaminophen [Tylenol] 1,000 mg PO QID PRN 05/21/20 10/03/23 Albuterol Sulfate [Albuterol 2 puff INHALATION RT-QID PRN 10/19/20 10/03/23 Sulfate Hfa] Multivitamins, Thera [Multivitamin 1 tab PO DAILY 03/21/23 10/03/23 (formulary)] Spironolactone [Aldactone] 25 mg PO DAILY 03/21/23 10/03/23 Cefpodoxime Proxetil [Vantin] 200 mg PO DIRECTED 10/03/23 10/03/23 Diltiazem Cd [Cardizem CD] 180 mg PO DIRECTED 10/03/23 10/03/23 Fluticasone/Umeclidin/Vilanter 1 puff INHALATION DIRECTED 10/03/23 10/03/23 [Trelegy Ellipta 100-62.5-25] Ipratropium-Albuterol Nebulize 3 ml INHALATION DIRECTED 10/03/23 10/03/23 [Duoneb 0.5 mg-3 mg/3 ml Soln] Metoprolol Succinate (ER) [Toprol 50 mg PO DIRECTED 10/03/23 10/03/23 XL] Nystatin 100,000 Unit/ml Susp 500,000 unit PO DIRECTED 10/03/23 10/03/23 [Mycostatin Oral Susp] Torsemide [Demadex] 20 mg PO DIRECTED 10/03/23 10/03/23 Warfarin [Coumadin] 1 mg PO DIRECTED 10/03/23 10/03/23 guaiFENesin-DM 600/30MG [Mucinex 2 tab PO DIRECTED 10/03/23 10/03/23 Dm] predniSONE [Deltasone] See Taper PO DIRECTED 10/03/23 10/03/23 Allergies Allergy/AdvReac Type Severity Reaction Status Date / Time No Known Allergies Allergy Verified 10/03/23 19:46 Review of Systems ROS Other: All systems not noted in ROS Statement are negative. <Ras Marx - Last Filed: 10/03/23 21:45> ROS Other: All systems not noted in ROS Statement are negative. <Ethel Ferrell - Last Filed: 10/04/23 03:55> ROS Statement: Those systems with pertinent positive or pertinent negative responses have been documented in the HPI. 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 History of Any Multi-Drug Resistant Organisms: None Reported Past Surgical History: Adenoidectomy, Hernia Repair, Tonsillectomy Additional Past Surgical History / Comment(s): ULCER REPAIR- 35 YEARS AGO, cataract bilateral Past Anesthesia/Blood Transfusion Reactions: No Reported Reaction Past Psychological History: No Psychological Hx Reported Smoking Status: Current some day smoker - Past Family History Mother Family Medical History: Cancer Additional Family Medical History / Comment(s): from [place] (stomach) Father Family Medical History: Myocardial Infarction (ID) Additional Family Medical History / Comment(s): passes away from aneurysm <Ras Marx - Last Filed: 10/03/23 21:45> General Exam <Ras Marx - Last Filed: 10/03/23 21:45> - General Exam Comments Initial Comments: GENERAL: Patient is well-developed and well-nourished. Patient is nontoxic and well- hydrated and is in mild distress. ENT: Neck is soft and supple. No significant lymphadenopathy is noted. Oropharynx is clear. Moist mucous membranes. Neck has full range of motion without eliciting any pain. EYES: The sclera were anicteric and conjunctiva were pink and moist. Extraocular movements were intact and pupils were equal round and reactive to light. Eyelids were unremarkable. PULMONARY: Patient has diminished breath sounds CARDIOVASCULAR: Patient has an irregular heartbeat ABDOMEN: Lower quadrant abdominal pain SKIN: Skin is clear with no lesions or rashes and otherwise unremarkable. NEUROLOGIC: Patient is alert and oriented x3. Cranial nerves II through XII are grossly intact. Motor and sensory are also intact. Normal speech, volume and content. Symmetrical smile. MUSCULOSKELETAL: Normal extremities with adequate strength and full range of motion. LYMPHATICS: No significant lymphadenopathy is noted PSYCHIATRIC: Normal psychiatric evaluation. (Ras Marx) Course Vital Signs 10/03/23 10/03/23 10/03/23 17:46 18:16 19:16 Temperature 98.5 F 97.7 F Pulse Rate 106 H 106 H Respiratory 20 24 21 Rate Blood Pressure 109/76 112/78 O2 Sat by Pulse 95 97 Oximetry 10/03/23 10/03/23 10/04/23 22:03 22:53 01:57 Temperature Pulse Rate 91 86 88 Respiratory 20 18 20 Rate Blood Pressure 128/87 126/99 132/76 O2 Sat by Pulse 95 100 100 Oximetry Medical Decision Making - Lab Data Result diagrams: 10/03/23 18:26 10/03/23 18:26 <Ras Marx - Last Filed: 10/03/23 21:45> - Lab Data Result diagrams: 10/03/23 18:26 10/03/23 18:26 <Ethel Ferrell - Last Filed: 10/04/23 03:55> - Medical Decision Making EKG is interpreted by myself. EKG shows atrial fibrillation at 99 bpm QRS is 97 QT interval 370 QTc is 426. Patient's EKG shows no ST segment elevation patient has ST segment depression in V5 and V6 Was pt. sent in by a medical professional or institution ([facility] Braun, [facility], urgent care, hospital, or penitentiary...) When possible be specific @ -[No] Did you speak to anyone other than the patient for history (EMS, parent, family, police, friend...)? What history was obtained from this source @ -[No] Did you review nursing and triage notes (agree or disagree)? Why? @ -[I reviewed and agree with nursing and triage notes] Were old charts reviewed (outside hosp., previous admission, EMS record, old EKG, old radiological studies, urgent care reports/EKG's, penitentiary records)? Report findings @ -I reviewed patient's prior admission and he was diagnosed with pneumonia at that time Differential Diagnosis (chest pain, altered mental status, abdominal pain women, abdominal pain men, vaginal bleeding, weakness, fever, dyspnea, syncope, headache, dizziness, GI bleed, back pain, seizure, CVA, palpatations, mental health, musculoskeletal)? @ -Differential Abdominal Pain Men: Appendicitis, cholecystitis, diverticulosis, ischemic bowel, pancreatitis, hepatitis, UTI, gastroenteritis, AAA, incarcerated hernia, bowel obstruction, constipation, inflammatory bowel, hepatitis, peptic ulcer disease, splenic infarction, perforated viscus, testicular torsion, this is not meant to be an all-inclusive list Differential Dyspnea: Coronary syndrome, arrhythmia, tamponade, asthma, COPD, pulmonary embolism, pne umonia, pneumothorax, pulmonary effusion, anaphylaxis, diabetic ketoacidosis, flailed chest, pulmonary contusion, diaphragmatic rupture, anemia, neuromuscular, this is not meant to be an all-inclusive list. EKG interpreted by me (3pts min.). @ -[As above] X-rays interpreted by me (1pt min.). @ -Chest x-ray showed some residual pneumonia CT interpreted by me (1pt min.). @ -[None done] U/S interpreted by me (1pt. min.). @ -[None done] What testing was considered but not performed or refused? (CT, X-rays, U/S, labs)? Why? @ -[None] What meds were considered but not given or refused? Why? @ -[None] Did you discuss the management of the patient with other professionals (professionals i.e. LORRAINE Braun, COW TESTER, lab, RT, psych nurse, social media developer, neuropsychology medical consultant, teacher, administrative hearing officer, housing case manager)? Give summary @ -[No] Was smoking cessation discussed for >3mins.? @ -[No] Was critical care preformed (if so, how long)? @ -[No] Were there social determinants of health that impacted care today? How? (Homel essness, low income, unemployed, alcoholism, drug addiction, transportation, low edu. Level, literacy, decrease access to med. care, long term, rehab)? @ -[No] Was there de-escalation of care discussed even if they declined (Discuss DNR or withdrawal of care, Hospice)? DNR status @ -[No] What co-morbidities impacted this encounter? (DM, HTN, Smoking, COPD, CAD, Cancer, CVA, ARF, Chemo, Hep., AIDS, mental health diagnosis, sleep apnea, morbid obesity)? @ -[None] Was patient admitted / discharged? Hospital course, mention meds given and route, prescriptions, significant lab abnormalities, going to OR and other pertinent info. @ -Patient chest x-ray showed residual pneumonia however patient still co mplaining of abdominal pains, awaiting CT scan result and at this point in time I am signing the patient out to Dr. Ferrell she will take over the care of the patient at 9 PM (Ras Marx) Was patient admitted / discharged? Hospital course, mention meds given and route, prescriptions, significant lab abnormalities, going to OR and other pertinent info. @ -Admit Undiagnosed new problem with uncertain prognosis? @ -No Drug Therapy requiring intensive monitoring for toxicity (Heparin, Nitro, Insulin, Cardizem)? @ -No Were any procedures done? @ -No Diagnosis/symptom? @ -Recurrent pneumonia, chronic abdominal pain Acute, or Chronic, or Acute on Chronic? @ -Default Uncomplicated (without systemic symptoms) or Complicated (systemic symptoms)? @ -Default Side effects of treatment? @ -No Exacerbation, Progression, or Severe Exacerbation? @ -No Poses a threat to life or bodily function? How? (Chest pain, USA, ID, pneumonia, PE, COPD, DKA, ARF, appy, cholecystitis, CVA, Diverticulitis, Homicidal, Suicidal, threat to staff... and all critical care pts) @ -Potentially Diagnosis/symptom? @ -Iliac occlusion Acute, or Chronic, or Acute on Chronic? @ -Chronic Uncomplicated (without systemic symptoms) or Complicated (systemic symptoms)? @ -Default Side effects of treatment? @ -None Exacerbation, Progression, or Severe Exacerbation] @ -No Poses a threat to life or bodily function? @ -Unlikely (Ethel Ferrell) - Lab Data Lab Results 10/03/23 10/03/23 10/03/23 Range/Units 18:26 18:26 18:26 WBC 8.9 (3.8-10.6) k/uL RBC 4.47 (4.30-5.90) m/uL Hgb 10.8 L (13.0-17.5) gm/dL Hct 36.5 L (39.0-53.0) % MCV 81.5 (80.0-100.0) fL MCH 24.1 L (25.0-35.0) pg MCHC 29.6 L (31.0-37.0) g/dL RDW 17.0 H (11.5-15.5) % Plt Count 244 (150-450) k/uL MPV 8.6 Neutrophils % 85 % Lymphocytes % 5 % Monocytes % 9 % Eosinophils % 1 % Basophils % 0 % Neutrophils # 7.5 (1.3-7.7) k/uL Lymphocytes # 0.4 L (1.0-4.8) k/uL Monocytes # 0.8 (0-1.0) k/uL Eosinophils # 0.1 (0-0.7) k/uL Basophils # 0.0 (0-0.2) k/uL Hypochromasia Moderate Anisocytosis Slight PT 11.8 (10.0-12.5) sec INR 1.1 (<1.2) APTT 24.6 (22.0-30.0) sec Sodium 136 L (137-145) mmol/L Potassium 3.1 L (3.5-5.1) mmol/L Chloride 93 L (98-107) mmol/L Carbon Dioxide 41 H* (22-30) mmol/L Anion Gap 2 mmol/L BUN 40 H (9-20) mg/dL Creatinine 0.67 (0.66-1.25) mg/dL Est GFR (CKD-EPI)AfAm >90 (>60 ml/min/1.73 sqM) Est GFR (CKD-EPI)NonAf 87 (>60 ml/min/1.73 sqM) Glucose 98 (74-99) mg/dL Lactic Ac Sepsis Rflx Plasma Lactic Acid Isacc (0.7-2.0) mmol/L Calcium 7.8 L (8.4-10.2) mg/dL Total Bilirubin 0.8 (0.2-1.3) mg/dL AST 45 (17-59) U/L ALT 28 (4-49) U/L Alkaline Phosphatase 101 (38-126) U/L Troponin I (0.000-0.034) ng/mL Total Protein 5.5 L (6.3-8.2) g/dL Albumin 3.0 L (3.5-5.0) g/dL Amylase 41 (30-110) U/L Lipase 36 (23-300) U/L 10/03/23 10/03/23 10/03/23 Range/Units 18:26 18:26 19:19 WBC (3.8-10.6) k/uL RBC (4.30-5.90) m/uL Hgb (13.0-17.5) gm/dL Hct (39.0-53.0) % MCV (80.0-100.0) fL MCH (25.0-35.0) pg MCHC (31.0-37.0) g/dL RDW (11.5-15.5) % Plt Count (150-450) k/uL MPV Neutrophils % % Lymphocytes % % Monocytes % % Eosinophils % % Basophils % % Neutrophils # (1.3-7.7) k/uL Lymphocytes # (1.0-4.8) k/uL Monocytes # (0-1.0) k/uL Eosinophils # (0-0.7) k/uL Basophils # (0-0.2) k/uL Hypochromasia Anisocytosis PT (10.0-12.5) sec INR (<1.2) APTT (22.0-30.0) sec Sodium (137-145) mmol/L Potassium (3.5-5.1) mmol/L Chloride (98-107) mmol/L Carbon Dioxide (22-30) mmol/L Anion Gap mmol/L BUN (9-20) mg/dL Creatinine (0.66-1.25) mg/dL Est GFR (CKD-EPI)AfAm (>60 ml/min/1.73 sqM) Est GFR (CKD-EPI)NonAf (>60 ml/min/1.73 sqM) Glucose (74-99) mg/dL Lactic Ac Sepsis Rflx Y Plasma Lactic Acid Isacc 2.7 H* (0.7-2.0) mmol/L Calcium (8.4-10.2) mg/dL Total Bilirubin (0.2-1.3) mg/dL AST (17-59) U/L ALT (4-49) U/L Alkaline Phosphatase (38-126) U/L Troponin I 0.031 (0.000-0.034) ng/mL Total Protein (6.3-8.2) g/dL Albumin (3.5-5.0) g/dL Amylase (30-110) U/L Lipase (23-300) U/L 10/03/23 10/03/23 10/04/23 Range/Units 21:52 22:35 00:54 WBC (3.8-10.6) k/uL RBC (4.30-5.90) m/uL Hgb (13.0-17.5) gm/dL Hct (39.0-53.0) % MCV (80.0-100.0) fL MCH (25.0-35.0) pg MCHC (31.0-37.0) g/dL RDW (11.5-15.5) % Plt Count (150-450) k/uL MPV Neutrophils % % Lymphocytes % % Monocytes % % Eosinophils % % Basophils % % Neutrophils # (1.3-7.7) k/uL Lymphocytes # (1.0-4.8) k/uL Monocytes # (0-1.0) k/uL Eosinophils # (0-0.7) k/uL Basophils # (0-0.2) k/uL Hypochromasia Anisocytosis PT (10.0-12.5) sec INR (<1.2) APTT (22.0-30.0) sec Sodium (137-145) mmol/L Potassium (3.5-5.1) mmol/L Chloride (98-107) mmol/L Carbon Dioxide (22-30) mmol/L Anion Gap mmol/L BUN (9-20) mg/dL Creatinine (0.66-1.25) mg/dL Est GFR (CKD-EPI)AfAm (>60 ml/min/1.73 sqM) Est GFR (CKD-EPI)NonAf (>60 ml/min/1.73 sqM) Glucose (74-99) mg/dL Lactic Ac Sepsis Rflx Y Plasma Lactic Acid Isacc 2.6 H* 1.8 (0.7-2.0) mmol/L Calcium (8.4-10.2) mg/dL Total Bilirubin (0.2-1.3) mg/dL AST (17-59) U/L ALT (4-49) U/L Alkaline Phosphatase (38-126) U/L Troponin I (0.000-0.034) ng/mL Total Protein (6.3-8.2) g/dL Albumin (3.5-5.0) g/dL Amylase (30-110) U/L Lipase (23-300) U/L Disposition <Ras Marx - Last Filed: 10/03/23 21:45> Is patient prescribed a controlled substance at d/c from ED?: No <Ethel Ferrell - Last Filed: 10/04/23 03:55> Clinical Impression: Multifocal pneumonia, Acute exacerbation of chronic obstructive pulmonary disease, Abdominal pain, Iliac artery occlusion, left Disposition: ADMITTED IP TO THIS HOSP Condition: Stable
[2023-10-03 18:50] LABS: ALT 28 U/L (4-49); African American GFR (CKD) >90 (>60 ml/min/1.73 sqM); Amylase 41 U/L (30-110); Blood Urea Nitrogen 40 mg/dL (9-20); Calcium 7.8 mg/dL (8.4-10.2); Chloride 93 mmol/L (98-107); Glucose 98 mg/dL (74-99); Lipase 36 U/L (23-300); Non-African American GFR(CKD) 87 (>60 ml/min/1.73 sqM); Sodium 136 mmol/L (137-145); Total Bilirubin 0.8 mg/dL (0.2-1.3); Total Protein 5.5 g/dL (6.3-8.2)
[2023-10-03 18:52] LABS: Anisocytosis Slight; Basophils % (A) 0 %; Eosinophils # (A) 0.1 k/uL (0-0.7); Eosinophils % (A) 1 %; HCT 36.5 % (39.0-53.0); HGB 10.8 gm/dL (13.0-17.5); Hypochromasia Moderate; INR 1.1 (<1.2); Lymphocytes # (A) 0.4 k/uL (1.0-4.8); Lymphocytes % (A) 5 %; MCH 24.1 pg (25.0-35.0); MCHC 29.6 g/dL (31.0-37.0); MCV 81.5 fL (80.0-100.0); Mean Platelet Volume 8.6; Monocytes # (A) 0.8 k/uL (0-1.0); Monocytes % (A) 9 %; Neutrophils # (A) 7.5 k/uL (1.3-7.7); Neutrophils % (A) 85 %; Partial Thromboplastin Time 24.6 sec (22.0-30.0); Platelet Count 244 k/uL (150-450); Prothrombin Time 11.8 sec (10.0-12.5); RBC 4.47 m/uL (4.30-5.90); WBC 8.9 k/uL (3.8-10.6)
[2023-10-03 18:56] LABS: Anion Gap 2 mmol/L
[2023-10-03 19:18] LABS: AST 45 U/L (17-59); Alkaline Phosphatase 101 U/L (38-126); Carbon Dioxide 41 mmol/L (22-30); Potassium 3.1 mmol/L (3.5-5.1)
--- NOTE | 2023-10-03 20:12 | XR ---
EXAM: XR Chest, 2 Views CLINICAL HISTORY: ITS.REASON XR Reason: Difficulty breathing TECHNIQUE: Frontal and lateral views of the chest. COMPARISON: CT chest with contrast dated 09/21/2023 FINDINGS: Lungs: The lungs remain hyperexpanded. Underlying chronic interstitial fibrotic changes remain. There is residual airspace consolidation involving the superior segment of the right lower lobe, less confluent than on the previous CT examination with an area of lucency noted internally. The prominent hilar structures are presumed vascular. Pleural space: Subsegmental changes involving the left lower lung zone are presumed residual previously noted curvilinear changes on the previous CT examination. A small left pleural effusion remains. Heart: Unremarkable. No cardiomegaly. Mediastinum: Unremarkable. No significant abnormality identified. The trachea is midline. Bones/joints: The compression fractures noted involving the fifth through eighth and T11 and T12 vertebral bodies demonstrate no appreciable alteration from the prior examination. IMPRESSION: 1. There is residual airspace consolidation involving the superior segment of the right lower lobe, less confluent than on the previous CT examination with an area of lucency noted internally. Findings are most consistent with residual pneumonia. The central lucency is not definitive for a developing area of necrosis or cavitation. However, continued surveillance to resolution is recommended. 2. A left pleural effusion remains. 3. The lungs remain hyperexpanded with similar underlying chronic interstitial fibrotic changes, consistent with COPD.
[2023-10-03] MEDS: POTASSIUM CHLORIDE 20 MEQ in WATER FOR INJECTION 1 100ML.BAG IVPB STA (20:37)
[2023-10-03] MEDS: SODIUM CHLORIDE 0.9% 1,000 ML IV ONE (22:15)
--- NOTE | 2023-10-03 22:22 | CT ---
EXAMINATION TYPE: CT abdomen pelvis w con CT DLP: 578.9 mGycm, Automated exposure control for dose reduction was used. DATE OF EXAM: 10/03/2023 8:13 PM COMPARISON: None. CLINICAL INDICATION:Male, 87 years old with history of abdominal pain; General abd pain. TECHNIQUE: Axial CT of the abdomen and pelvis. Sagittal and coronal reformats were created on a [employer] workstation. Contrast used:100 ml mL of Isovue 300 with IV Contrast, (none if empty) Oral contrast used: without Oral Contrast (none if empty) FINDINGS: Limitation by generalized cachexia and poor visualization/differentiation of structures throughout th e exam. LOWER CHEST: Mild bibasilar scarring and/or subsegmental atelectasis. Heart is mildly enlarged. LIVER: Unremarkable. GALLBLADDER AND BILE DUCTS: Gallbladder appears mildly distended with no visible calculi. PANCREAS: Rounded densities suggesting postop changes in the region of the radius of the bed pancreas and superiorly. Spleen appears normal in size. Small to moderate amount of free fluid suggested in the abdomen. SPLEEN: Unremarkable. ADRENAL GLANDS: Unremarkable. KIDNEYS AND URETERS: Kidneys enhance symmetrically. No evidence of hydronephrosis or visible renal ca lculus. The ureters are unremarkable. PELVIS BLADDER: Mildly enlarged REPRODUCTIVE: Prostate appears mildly prominent. The bladder wall shows some smooth indentation later ally bilaterally, likely chronic. ABDOMEN & PELVIS STOMACH AND BOWEL: No significant distention to suggest obstruction. No pneumatosis. PERITONEUM/RETROPERITONEUM: No evidence of pneumoperitoneum or free fluid. VASCULATURE: Moderate to severe atherosclerotic disease of the aorta and iliac arteries. What appear to be the takeoffs of the celiac and superior mesenteric arteries are patent. 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 There is lobular dil atation of the infrarenal abdominal aorta with maximum diameter 3.6 cm. Otherwise the vessels are kely arently patent. LYMPH NODES: No lymphadenopathy. SOFT TISSUE/ABDOMINAL WALL: Generalized cachexia. No acute abnormality is seen. MUSCULOSKELETAL: Generalized demineralization, possibly osteoporosis. Moderate degenerative changes o f the lumbar spine and SI joints. Mild associated scoliosis of the third lumbar spine. There is compr ession fracture deformity of L1, moderate to severe, with no appreciable acute abnormality. IMPRESSION: 1. Limitation by generalized cachexia and poor visualization/differentiation of structures throughou t the exam. 2. Partially seen aortic root and ascending aorta are prominent, ascending segment measures 5.1 x 4. 6 cm. Visualized descending segment is 3.3 cm. It is then tortuous and particularly ectatic in the [facility] upper quadrant. Segment here is 3.5 x 3.4 CM. 3. Stomach and small bowel are nondistended, no evidence of obstruction. 4. Moderate stool throughout the colon without gross focal inflammatory process. Exam is highly limi sherry. 5. Moderate to severe atherosclerotic disease of the aorta and iliac arteries. 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 6. Lobular dilatation of the infrarenal abdominal aorta with maximum diameter 3.6 cm. 7. Likely chronic compression deformity of L1, moderate to severe height loss, appearance favors chr onic.
[2023-10-04] MEDS: SODIUM CHLORIDE 0.9% 1,000 ML IV SCH (00:20)
[2023-10-04] MEDS ORDERED: PNEUMONIA PROTOCOL UTILIZED 1 EACH MISC PO PRN (00:55)
[2023-10-04] MEDS: CEFEPIME 1 GM in SODIUM CHLORIDE 0.9% 50 ML IVPB STA (01:27)
[2023-10-04] MEDS: CEFEPIME 2 GM in SODIUM CHLORIDE 0.9% 100 ML IVPB SCH (07:44)
--- NOTE | 2023-10-04 12:02 | P.HPIM ---
History of Present Illness H&P Date: 10/04/23 Chief Complaint: Abdominal pain HISTORY OF PRESENT ILLNESS: This is an 87-year-old male with a previous medical history significant for 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 failure on oxygen at home due to severe COPD with FEV1 of 37% of predicted, chronic atrial fibrillation, thoracic aortic aneurysm, abdominal aortic aneurysm, chronic diastolic heart failure, chronic pulmonary hypertension, patient was recently hospitalized at [facility] in March 2023 after he was admitted for what appears to be a right lower lobe Pseudomonas pneumonia involving the superior segment of the right lower lobe and it showed like a masslike consolidation back on the CT scan and he was treated and his x- ray showed improvement but never had a bronchoscopy, patient is following regularly with Dr. Zapata as an outpatient. Patient has been feeling ill for the last 4 weeks. Patient was recently admitted for right lower lobe pneumonia, shortness of breath and was complaining of fever chills fatigue tiredness and weight loss. He also had bilateral pleural effusions cardiomegaly and was found to have leukocytosis, coagulopathy with an INR of 9.7. Patient was treated in the hospital he was given IV antibiotic in the form of cefepime, and he was treated with IV Solu-Medrol 60 mg IV push every 6 hours, that was transitioned to oral prednisone as well as oral cefpodoxime that was supposed to be taken on last Monday, however the patient never picked up the prescription, his asked me to [facility] the [facility] and the patient was looking for his prescription at [facility] in [place], patient picked up this prescription only yesterday Monday and he has not taken any medication since, he has been complaining of increased abdominal pain in the left upper quadrant therefore he was brought into the emergency department for evaluation, CT scan of the abdomen was negative for any acute process. Chest x-ray positive for residual pneumonia and left pleural effusion. Patient was subseque ntly put on cefepime 2 g 8 hours. Lactic was initially 2.7 and is now 1.8. Potassium was 3.1 and it has been replaced. Patient was admitted to inpatient. Will consult pulmonology and continue to follow with patient very closely. REVIEW OF SYSTEMS: Constitutional: Negative for fever, negative for chills, no night sweats. Significant weight change. Positive for weakness, fatigue or lethargy. No daytime sleepiness. HEENT: No headache. No blurred vision or double vision, no loss of vision. No loss of Hearing, no ringing in the ears, no dizziness. No nasal drainage or congestion. No epistaxis. No sore throat. Lungs: positive for shortness of breath, positive for cough, yellow and green sputum production. Reports dyspnea with activity. Cardiovascular: No chest pain, positive for lower extremity edema. positive for palpitations. No paroxysmal nocturnal dyspnea. No orthopnea. No lightheadedness or dizziness. No syncopal episodes. Abdominal: Reports abdominal pain. positive for nausea, no vomiting. No diarrhea. No constipation. No bloody or tarry stools reports loss of appetite. Genitourinary: No dysuria, increased frequency, urgency. No urinary retention. Musculoskeletal: No myalgias. positive for muscle weakness, positive for gait dysfunction, no frequent falls. No back pain. No neck pain. Integumentary: No wounds, no lesions. No rash or pruritus. No unusual bruising. No change in hair or nails. Neurologic: No aphasia. No facial droop. No change in mentation. No head injury. No headache. No paralysis. No paresthesia. Psychiatric: No depression. No anxiety. No mood swings. Endocrine: No abnormal blood sugars. No weight change. PAST MEDICAL HISTORY: Chronic hypoxemic respiratory failure due to COPD. Severe pulmonary hypertension. Thoracic aortic aneurysm. Paroxysmal atrial fibrillation Abdominal aortic aneurysm Osteoarthritis Chronic diastolic heart failure Severe COPD with FEV1 of 37% of predicted. PAST SURGICAL HISTORY: Peptic ulcer surgery in 1970 Right inguinal hernia repair 2009 Bilateral cataract surgery 2007 and 2008 Colonoscopy 2015 Skin biopsy for bullous pemphigoid. SOCIAL HISTORY: Patient used to smoke about a pack a day he smoked for many years, and quit more than 20 years ago, he denies any alcohol ingestion, he lives with his he does have a walker from ablation, he does have oxygen at home at 4 L. FAMILY HISTORY: Father at age 70 due to ruptured thoracic aortic aneurysm mother at the age of 75 from cancer of unknown origin patient had a brother who at age of 55 from brain cancer with metastatic disease, patient had one sister who at age 75 from breast cancer patient has 2 sons both healthy, and 2 daughters no major medical problems. PHYSICAL EXAMINATION: General: 87-year-old male laying down in bed in minimal respiratory distress. HEENT: Head is atraumatic, normocephalic, pupils were equal round reactive to light and recommendation, extraocular muscle movement were intact, sclera nonicteric, conjunctivae were pale, mucous membranes of the mouth are somewhat dry. Neck: Supple, no JVP, normal carotid upstroke bilaterally, no lymphadenopathy. Chest: Decreased breath sounds at the bases, few rhonchi, minimal expiratory wheezes, no chest wall tenderness, no intercostal retractions. Heart: First heart sound is normal, second heart sound is normal irregularly irregular there is JULI 2/6 located at the left sternal border Abdomen: Soft, mild tenderness to the left upper quadrant no rebound or guarding, nondistended, positive bowel sounds. Extremities: There is +1 edema no calf tenderness DP +2 bilaterally. Neurologic examination: Patient is awake alert and oriented X 3, cranial nerves II-12 appear grossly intact, muscle power were 4 out of 5 in upper extremities and 3 out of 5 in bilateral lower extremities, deep tendon reflexes normal bilaterally. ASSESSMENT AND PLAN: 1. Residual gram-negative right lower lobe pneumonia with left-sided pleural effusion continue cefepime 2 g every 8 hours, continue patient on DuoNeb 3 mm nebulization 4 times every day, start the patient on Solu-Medrol 60 mg IV push every 6 hours, continue patient on oxygen at 4 L nasal cannula, discontinue IV fluid at this time as the patient is showing signs of increased pulmonary vascular congestion, and started the patient back in his torsemide 20 mg orally once every day along with the spironolactone 25 mg orally once every day. 2. Left upper/lower quadrant abdominal pain. CT of the abdomen was negative. Pain is controlled at this time. Continue Tylenol, monitor the patient very closely. 2. Chronic diastolic heart failure with severe pulmonary hypertension. Continue spironolactone 25 mg once a day, continue patient on torsemide 20 mg orally once every day, continue metoprolol 50 mg orally twice every day, continue patient on Cardizem CD1 80 mg orally once every day. Monitor the patient input and output and daily weight. 3. Chronic atrial fibrillation. Maintain the patient on metoprolol 50 mg orally twice every day as well as Cardizem CD 180 mg once every day, patient was given 2.5 mg of Coumadin kim, pharmacy to dose, patient is very sensitive to Coumadin, will monitor INR in daily basis 6. Thoracic aortic aneurysm. Has been under the care of cardiology CT angiography is up-to-date. Has been stable at 4.5 cm. 7. Abdominal aortic aneurysm. Stable at 3.8 cm. 8. Bullous pemphigoid. Is stable. 9. DVT prophylaxis. Restart the patient back on Coumadin at 2.5 mg tonight, then we will start him on 1 mg orally once every day. Keep his INR between 2-3. 10. GI prophylaxis. Continue patient on Protonix 40 mg orally once every day. 11. Admit to inpatient. Estimate a length of stay 2 midnights. 12. Full code. Impression and plan of care have been directed as dictated by the signing physician. Kamila Huntley, nurse practitioner acting as scribe for signing physician. 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 History of Any Multi-Drug Resistant Organisms: None Reported Past Surgical History: Adenoidectomy, Hernia Repair, Tonsillectomy Additional Past Surgical History / Comment(s): ULCER REPAIR- 35 YEARS AGO, cataract bilateral Past Anesthesia/Blood Transfusion Reactions: No Reported Reaction Past Psychological History: No Psychological Hx Reported Smoking Status: Current some day smoker - Past Family History Mother Family Medical History: Cancer Additional Family Medical History / Comment(s): from [place] (stomach) Father Family Medical History: Myocardial Infarction ([place]) Additional Family Medical History / Comment(s): passes away from aneurysm Medications and Allergies Home Medications Medication Instructions Recorded Confirmed Type Acetaminophen [Tylenol] 1,000 mg PO QID PRN 05/21/20 10/03/23 History Albuterol Sulfate [Albuterol 2 puff INHALATION RT-QID PRN 10/19/20 10/03/23 History Sulfate Hfa] Multivitamins, Thera [Multivitamin 1 tab PO DAILY 03/21/23 10/03/23 History (formulary)] Spironolactone [Aldactone] 25 mg PO DAILY 03/21/23 10/03/23 History Cefpodoxime Proxetil [Vantin] 200 mg PO DIRECTED 10/03/23 10/03/23 History Diltiazem Cd [Cardizem CD] 180 mg PO DIRECTED 10/03/23 10/03/23 History Fluticasone/Umeclidin/Vilanter 1 puff INHALATION DIRECTED 10/03/23 10/03/23 History [Trelegy Ellipta 100-62.5-25] Ipratropium-Albuterol Nebulize 3 ml INHALATION DIRECTED 10/03/23 10/03/23 History [Duoneb 0.5 mg-3 mg/3 ml Soln] Metoprolol Succinate (ER) [Toprol 50 mg PO DIRECTED 10/03/23 10/03/23 History XL] Nystatin 100,000 Unit/ml Susp 500,000 unit PO DIRECTED 10/03/23 10/03/23 History [Mycostatin Oral Susp] Torsemide [Demadex] 20 mg PO DIRECTED 10/03/23 10/03/23 History Warfarin [Coumadin] 1 mg PO DIRECTED 10/03/23 10/03/23 History guaiFENesin-DM 600/30MG [Mucinex 2 tab PO DIRECTED 10/03/23 10/03/23 History Dm] predniSONE [Deltasone] See Taper PO DIRECTED 10/03/23 10/03/23 History Allergies Allergy/AdvReac Type Severity Reaction Status Date / Time No Known Allergies Allergy Verified 10/03/23 19:46 Physical Exam Vitals: Vital Signs Temp Pulse Resp BP Pulse Ox 10/04/23 07:45 90 18 149/90 93 L 10/04/23 06:20 101 H 18 116/84 100 10/04/23 04:02 72 16 158/88 100 10/04/23 01:57 88 20 132/76 100 10/03/23 22:53 86 18 126/99 100 10/03/23 22:03 91 20 128/87 95 10/03/23 19:16 21 10/03/23 18:16 97.7 F 106 H 24 112/78 97 10/03/23 17:46 98.5 F 106 H 20 109/76 95 Intake and Output 10/03/23 10/04/23 10/04/23 22:59 06:59 14:59 Other: Weight 49.895 kg Results CBC & Chem 7: 10/05/23 04:52 10/05/23 04:52 Labs: Abnormal Lab Results - Last 24 Hours (Table) 10/03/23 10/03/23 10/03/23 Range/Units 18:26 18:26 18:26 Hgb 10.8 L (13.0-17.5) gm/dL Hct 36.5 L (39.0-53.0) % MCH 24.1 L (25.0-35.0) pg MCHC 29.6 L (31.0-37.0) g/dL RDW 17.0 H (11.5-15.5) % Lymphocytes # 0.4 L (1.0-4.8) k/uL Sodium 136 L (137-145) mmol/L Potassium 3.1 L (3.5-5.1) mmol/L Chloride 93 L (98-107) mmol/L Carbon Dioxide 41 H* (22-30) mmol/L BUN 40 H (9-20) mg/dL Plasma Lactic Acid Isacc 2.7 H* (0.7-2.0) mmol/L Calcium 7.8 L (8.4-10.2) mg/dL Total Protein 5.5 L (6.3-8.2) g/dL Albumin 3.0 L (3.5-5.0) g/dL 10/03/23 Range/Units 21:52 Hgb (13.0-17.5) gm/dL Hct (39.0-53.0) % MCH (25.0-35.0) pg MCHC (31.0-37.0) g/dL RDW (11.5-15.5) % Lymphocytes # (1.0-4.8) k/uL Sodium (137-145) mmol/L Potassium (3.5-5.1) mmol/L Chloride (98-107) mmol/L Carbon Dioxide (22-30) mmol/L BUN (9-20) mg/dL Plasma Lactic Acid Isacc 2.6 H* (0.7-2.0) mmol/L Calcium (8.4-10.2) mg/dL Total Protein (6.3-8.2) g/dL Albumin (3.5-5.0) g/dL
[2023-10-04] MEDS: IPRATROPIUM-ALBUTEROL 3 ML NEB INHALATION PRN (13:17)
[2023-10-04 13:25] LABS: INR 1.1 (<1.2); Prothrombin Time 11.6 sec (10.0-12.5)
[2023-10-04] MEDS ORDERED: ACETAMINOPHEN TAB 500 MG TAB PO PRN ×2 (15:27→15:28)
[2023-10-04] MEDS ORDERED: IPRATROPIUM-ALBUTEROL 3 ML NEB INHALATION PRN (15:34)
--- NOTE | 2023-10-04 15:40 | P.CNPUL ---
History of Present Illness Consult date: 10/04/23 Requesting physician: Eugene Todd Reason for consult: dyspnea, cough, COPD, hypoxemia, pneumonia, abnormal CXR/CT Chief complaint: Cough, shortness of breath, phlegm production, and belly pain. History of present illness: Pulmonary consult dated October 04, 2023. 87-year-old male seen today in room 455. He presented to the emergency room, via EMS, complaining primarily of abdominal pain. For the last 3 to 4 days, he has been having significant abdominal pain. In addition, he complains of cough, shortness of breath, and phlegm production. His primary reason for coming into the emergency department, was abdominal discomfort. He denied any vomiting or diarrhea. He called EMS, and apparently when they arrived, he was in atrial fibrillation with a rapid ventricular response. The patient was very short of breath. For that reason, he was evaluated in the ER, and admitted. 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 He uses oxygen at home, at 4 L/min, 21/11. His chest x-ray shows some chronic changes particular in the right midlung, and those are primarily unchanged. He denies any fever or chills. He denies any chest pain or chest discomfort. His medical history includes atrial fibrillation, COPD, cataract surgery, also repaired, many years ago, and severe COPD. He also has a history of ascending thoracic aortic aneurysm, and has chronic constipation as well. Current labs include a white count 8.9, hemoglobin 10.8, hematocrit 36.5, and a normal platelet count. Coagulation studies are normal. Sodium 136, potassium 3 .1, chlorides 93, CO2 41, BUN 40, and creatinine 0.67. Lactic acid was 2 point 6 repeat was 1.8. Calcium was 7.8. Albumin was 3. Chest x-ray today, as compared to 1 that was done in August. It shows some residual airspace consolidation, within the right lung. In my opinion, this area is not changed, or even a bit better. The patient does have changes of COPD, and a very small left pleural effusion. CT scan of the abdomen pelvis, shows moderate stool throughout the colon and evidence of abdominal aortic aneurysm. There appears to be nothing significantly acute and the CT scan of the abdomen and pelvis. Review of Systems REVIEW OF SYSTEMS: CONSTITUTIONAL: [Negative.] NEUROLOGIC: [ Negative.] HEENT: [ Negative.] CARDIAC: Rapid heartbeat, with atrial fibrillation/RVR. PULMONARY: Shortness of breath, cough, wheezing, phlegm production. The symptoms are chronic. GI: Lower abdominal pain. : [Negative.] RHEUMATOLOGIC: [ Negative.] IMMUNOLOGIC: [ Negative.] ENDOCRINE: [Negative. ] DERMATOLOGIC: [Negative.] Past Medical History Past Medical History: Atrial Fibrillation, COPD, Respiratory Disorder Additional Past Medical History / Comment(s): Ascending thoracic aortic aneurysm measuring 4.8 cm in size, advanced COPD wears 4 liters 02 ATC, left lower lobe mass measuring 3.4 x 3.3 cm in size pt states gets full easily when eating and has constipation issues, takes Sauer MOM, has an appt with Dr Norris Recinos in July. History of Any Multi-Drug Resistant Organisms: None Reported Past Surgical History: Adenoidectomy, Hernia Repair, Tonsillectomy Additional Past Surgical History / Comment(s): ULCER REPAIR- 35 YEARS AGO, cataract bilateral Past Anesthesia/Blood Transfusion Reactions: No Reported Reaction Past Psychological History: No Psychological Hx Reported Smoking Status: Current some day smoker Past Alcohol Use History: Rare Additional Past Alcohol Use History / Comment(s): 1/2ppd smoked for 65 yrs. quit a couple of years ago admits to occasional cigarette still Past Drug Use History: None Reported - Past Family History Mother Family Medical History: Cancer Additional Family Medical History / Comment(s): from [place] (stomach) Father Family Medical History: Myocardial Infarction ([place]) Additional Family Medical History / Comment(s): passes away from aneurysm Medications and Allergies Home Medications Medication Instructions Recorded Confirmed Type Acetaminophen [Tylenol] 1,000 mg PO QID PRN 05/21/20 10/03/23 History Albuterol Sulfate [Albuterol 2 puff INHALATION RT-QID PRN 10/19/20 10/03/23 History Sulfate Hfa] Multivitamins, Thera [Multivitamin 1 tab PO DAILY 03/21/23 10/03/23 History (formulary)] Spironolactone [Aldactone] 25 mg PO DAILY 03/21/23 10/03/23 History Cefpodoxime Proxetil [Vantin] 200 mg PO DIRECTED 10/03/23 10/03/23 History Diltiazem Cd [Cardizem CD] 180 mg PO DIRECTED 10/03/23 10/03/23 History Fluticasone/Umeclidin/Vilanter 1 puff INHALATION DIRECTED 10/03/23 10/03/23 History [Trelekirti Ellipta 100-62.5-25] Ipratropium-Albuterol Nebulize 3 ml INHALATION DIRECTED 10/03/23 10/03/23 History [Duoneb 0.5 mg-3 mg/3 ml Soln] Metoprolol Succinate (ER) [Toprol 50 mg PO DIRECTED 10/03/23 10/03/23 History XL] Nystatin 100,000 Unit/ml Susp 500,000 unit PO DIRECTED 10/03/23 10/03/23 History [Mycostatin Oral Susp] Torsemide [Demadex] 20 mg PO DIRECTED 10/03/23 10/03/23 History Warfarin [Coumadin] 1 mg PO DIRECTED 10/03/23 10/03/23 History guaiFENesin-DM 600/30MG [Mucinex 2 tab PO DIRECTED 10/03/23 10/03/23 History Dm] predniSONE [Deltasone] See Taper PO DIRECTED 10/03/23 10/03/23 History Allergies Allergy/AdvReac Type Severity Reaction Status Date / Time No Known Allergies Allergy Verified 10/03/23 19:46 Physical Exam Osteopathic Statement: *. No significant issues noted on an osteopathic structural exam other than those noted in the History and Physical/Consult. Vitals: Vital Signs Temp Pulse Resp BP Pulse Ox 10/04/23 14:26 90 22 146/78 92 L 10/04/23 13:28 100 10/04/23 13:18 96 10/04/23 07:45 90 18 149/90 93 L 10/04/23 06:20 101 H 18 116/84 100 10/04/23 04:02 72 16 158/88 100 10/04/23 01:57 88 20 132/76 100 10/03/23 22:53 86 18 126/99 100 10/03/23 22:03 91 20 128/87 95 10/03/23 19:16 21 10/03/23 18:16 97.7 F 106 H 24 112/78 97 10/03/23 17:46 98.5 F 106 H 20 109/76 95 Intake and Output 10/04/23 10/04/23 10/04/23 06:59 14:59 22:59 Other: Weight 49.895 kg No acute distress, oriented 3. Mild conversational dyspnea. Currently on 4 L. Frequent cough and phlegm production. HEENT examination is grossly unremarkable. Mucous membranes are moist. No oral lesions. Neck supple. Full range of motion. No adenopathy thyromegaly or neck vein dis tention. Cardiovascular examination reveals an irregular rhythm and rate. S1-S2 normal. No S3 or S4. No discernible murmur noted. Heart rate 90 bpm. Lungs reveal coarse bilateral rhonchi. Breath sounds are diminished throughout. Breath sounds are equal bilaterally. His cough is a bit wet and congested. Saturations are 92%. Abdomen soft bowel sounds are heard. No masses or tenderness. Extremities are intact. No cyanosis clubbing or edema. Skin is without rash or lesion. Neurologic examination is brief but nonfocal. Results - Laboratory Findings CBC and BMP: 10/03/23 18:26 10/03/23 18:26 PT/INR, D-dimer PT 11.6 sec (10.0-12.5) 10/04/23 11:40 INR 1.1 (<1.2) 10/04/23 11:40 Abnormal lab findings: Abnormal Labs 10/03/23 10/03/23 10/03/23 18:26 18:26 18:26 Hgb 10.8 L Hct 36.5 L MCH 24.1 L MCHC 29.6 L RDW 17.0 H Lymphocytes # 0.4 L Sodium 136 L Potassium 3.1 L Chloride 93 L Carbon Dioxide 41 H* BUN 40 H Plasma Lactic Acid Isacc 2.7 H* Calcium 7.8 L Total Protein 5.5 L Albumin 3.0 L 10/03/23 21:52 Hgb Hct MCH MCHC RDW Lymphocytes # Sodium Potassium Chloride Carbon Dioxide BUN Plasma Lactic Acid Isacc 2.6 H* Calcium Total Protein Albumin - Diagnostic Findings Chest x-ray: image reviewed Assessment and Plan Assessment: Abdominal pain, lasting 3 to 4 days, of unclear etiology. Acute on chronic COPD, with possible mild exacerbation, and chronic changes on chest x-ray. Atrial fibrillation with rapid ventricular response. History of ongoing tobacco use with nicotine addiction. Chronic hypoxemic respiratory failure, on home O2 at 4 L. History of chronic constipation. Anorexia/cachexia syndrome of chronic illness. Plan: Plan dated October 02, 2023. The patient will be placed on albuterol sulfate, ipratropium bromide, budesonide, formoterol, and Solu-Medrol at usual doses. The patient was started on cefepime, by the primary service. We will check a procalcitonin level. If normal, the antibiotic should be discontinued. The patient presented primarily with abdominal pain, but nothing real obvious or acute on CT scan of the abdomen and pelvis. The patient does suffer from chronic constipation, which may be causing his abdominal discomfort. He was also found to have atrial fibrillation with RVR, although, his heart rate now is below 100. He is in atrial fibrillation. We will continue to follow make recommendations along the way. Additional recommendations and suggestions are forthcoming. Time with Patient: Greater than 30
[2023-10-04] MEDS: IPRATROPIUM-ALBUTEROL 3 ML NEB INHALATION SCH (16:16)
[2023-10-04] MEDS ORDERED: WARFARIN 1 MG TAB PO SCH (18:00)
[2023-10-04] MEDS: methylPREDNISolone SOD SUCCI 125 MG/2 ML VIAL IV SCH (18:06)
[2023-10-04] MEDS: NYSTATIN 100,000 UNIT/ML SUSP 500,000 UNIT/5 ML CUP PO SCH (18:07)
[2023-10-04] MEDS: BUDESONIDE 1 MG/2 ML NEBU INHALATION SCH (21:25)
[2023-10-04] MEDS: FORMOTEROL FUMARATE 20 MCG/2 ML NEBU INHALATION SCH (21:25)
[2023-10-04] MEDS: METOPROLOL SUCCINATE (ER) 50 MG TAB.ER.24H PO SCH ×2 (21:54→21:57)
[2023-10-04] MEDS: NON FORMULARY DRUG (Fluticasone/Umeclidin/Vilanter [Trelegy Ellipta 100-62.5-25] 1 EACH Bl INHALATION SCH (21:54)
[2023-10-04] MEDS: TORSEMIDE 20 MG TAB PO SCH (21:54)
[2023-10-04] MEDS: WARFARIN 2.5 MG TAB PO ONE (21:56)
[2023-10-05 05:31] LABS: INR 1.1 (<1.2)
[2023-10-05] MEDS: PANTOPRAZOLE 40 MG/10 ML VIAL IVP SCH (08:22)
[2023-10-05] MEDS: ONDANSETRON 4 MG/2 ML VIAL IVP PRN (08:22)
[2023-10-05] MEDS: MULTIVITAMINS, THERA 1 EACH TAB PO SCH (08:31)
[2023-10-05] MEDS: SPIRONOLACTONE 25 MG TAB PO SCH (08:31)
[2023-10-05] MEDS: TORSEMIDE 20 MG TAB PO SCH (08:41)
[2023-10-05] MEDS: DILTIAZEM CD 180 MG CAP.ER.24H PO SCH (08:41)
[2023-10-05] MEDS ORDERED: guaiFENesin-DM 600/30MG 1 EACH TAB.ER.12H PO PRN (09:00)
[2023-10-05 09:45] LABS: ALT 31 U/L (10-49); AST 32 U/L (14-35); Albumin 3.2 g/dL (3.8-4.9); Albumin/Globulin Ratio 1.68 Ratio (1.60-3.17); Alkaline Phosphatase 117 U/L (41-126); BUN/Creat Ratio 30.29 Ratio (12.00-20.00); Blood Urea Nitrogen 21.2 mg/dL (9.0-27.0); Calcium 7.5 mg/dL (8.7-10.3); Carbon Dioxide 31.5 mmol/L (21.6-31.8); Chloride 100 mmol/L (96-109); Globulin 1.9 g/dL (1.6-3.3); Glucose 150 mg/dL (70-110); Potassium 3.7 mmol/L (3.5-5.5); Sodium 140 mmol/L (135-145); Total Bilirubin 0.3 mg/dL (0.3-1.2); Total Protein 5.1 g/dL (6.2-8.2)
[2023-10-05 09:50] LABS: Basophils # (A) 0.01 X 10*3/uL (0.00-0.10); Basophils % (A) 0.2 %; Eosinophils # (A) 0 X 10*3/uL (0.04-0.35); Eosinophils % (A) 0 %; HCT 34.3 % (39.6-50.0); HGB 10.1 g/dL (13.0-17.0); Lymphocytes # (A) 0.13 X 10*3/uL (0.90-5.00); Lymphocytes % (A) 2.5 %; MCH 24.2 pg (27.0-32.0); MCHC 29.4 g/dL (32.0-37.0); MCV 82.3 FL (80.0-97.0); Mean Platelet Volume 10.5 FL (9.5-12.2); Monocytes # (A) 0.14 X 10*3/uL (0.20-1.00); Monocytes % (A) 2.7 %; NRBC Per 100 WBC 0 X 10*3/uL (0.00-0.01); Neutrophils # (A) 4.84 X 10*3/uL (1.80-7.70); Neutrophils % (A) 93.3 %; Platelet Count 202 X 10*3/uL (140-440); RBC 4.17 X 10*6/uL (4.40-5.60); RDW 19.7 % (11.5-14.5); WBC 5.19 X 10*3/uL (4.50-10.00)
--- NOTE | 2023-10-05 12:15 | P.PN ---
Subjective Progress Note Date: 10/05/23 87-year-old male seen today in room 455. He presented to the emergency room, via EMS, complaining primarily of abdominal pain. For the last 3 to 4 days, he has been having significant abdominal pain. In addition, he complains of cough, shortness of breath, and phlegm production. His primary reason for coming into the emergency department, was abdominal discomfort. He denied any vomiting or diarrhea. He called EMS, and apparently when they arrived, he was in atrial fibrillation with a rapid ventricular response. The patient was very short of breath. For that reason, he was evaluated in the ER, and admitted. 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 He uses oxygen at home, at 4 L/min, 21/11. His chest x-ray shows some chronic changes particular in the right midlung, and those are primarily unchanged. He denies any fever or chills. He denies any chest pain or chest discomfort. His medical history includes atrial fibrillation, COPD, cataract surgery, also repaired, many years ago, and severe COPD. He also has a history of ascending thoracic aortic aneurysm, and has chronic constipation as well. Current labs include a white count 8.9, hemoglobin 10.8, hematocrit 36.5, and a normal platelet count. Coagulation studies are normal. Sodium 136, potassium 3.1, chlorides 93, CO2 41, BUN 40, and creatinine 0.67. Lactic acid was 2 point 6 repeat was 1.8. Calcium was 7.8. Albumin was 3. Chest x-ray today, as compared to 1 that was done in August. It shows some residual airspace consolidation, within the right lung. In my opinion, this area is not changed, or even a bit better. The patient does have changes of COPD, and a very small left pleural effusion. CT scan of the abdomen pelvis, shows moderate stool throughout the colon and evidence of abdominal aortic aneurysm. There appears to be nothing significantly acute and the CT scan of the abdomen and pelvis. The patient is seen today October 05, 2023 in follow-up on the regular medical floor. He is up ambulating with a walker and assistance. He is doing better to day compared to yesterday. He is maintaining good O2 saturations in the 90s on 4 L/min per nasal cannula. No IV fluids. He remains on DuoNeb inhalations, Pulmicort and Perforomist inhalations, Solu-Medrol. He is on Maxipime. His procalcitonin was negative at 0.08. White count 5.1. Hemoglobin 10.1. Platelets 202. Sodium 140. Potassium 3.7. Bicarb 32. BUN 21. Creatinine 0.7. Glucose 150. Objective - Vital Signs Vital signs: Vital Signs Temp 97.4 F L 10/05/23 08:00 Pulse 86 10/05/23 12:03 Resp 19 10/05/23 08:30 BP 113/75 10/05/23 08:00 Pulse Ox 98 10/05/23 08:34 FiO2 Intake & Output 10/04/23 10/05/23 10/05/23 18:59 06:59 18:59 Intake Total 100 Output Total 200 550 Balance -200 -450 Weight 49.895 kg Intake: Oral 100 Output: Urine 200 550 Other: Voiding Method Bedside Commode - Exam GENERAL EXAM: Alert, active, frail 87-year-old male, on 4 L nasal cannula, up with a walker, in no apparent distress. HEAD: Normocephalic. EYES: Normal reaction of pupils, equal size. NOSE: Clear with pink turbinates. THROAT: No erythema or exudates. NECK: No masses, no JVD. CHEST: No chest wall deformity. LUNGS: Equal air entry with end expiratory wheeze, diminished. CVS: S1 and S2 normal with no audible murmur, regular rhythm. ABDOMEN: No hepatosplenomegaly, normal bowel sounds, no guarding or rigidity. SPINE: No scoliosis or deformity SKIN: No rashes CENTRAL NERVOUS SYSTEM: No focal deficits, tone is normal in all 4 extremities. EXTREMITIES: There is no peripheral edema. No clubbing, no cyanosis. Peripheral pulses are intact. - Labs CBC & Chem 7: 10/05/23 04:52 10/05/23 04:52 Labs: Abnormal Lab Results - Last 24 Hours (Table) 10/05/23 10/05/23 Range/Units 04:52 04:52 RBC 4.17 L (4.40-5.60) X 10*6/uL Hgb 10.1 L (13.0-17.0) g/dL Hct 34.3 L (39.6-50.0) % MCH 24.2 L (27.0-32.0) pg MCHC 29.4 L (32.0-37.0) g/dL RDW 19.7 H (11.5-14.5) % Immature Gran # 0.07 H (0.00-0.04) X 10*3/uL Lymphocytes # 0.13 L (0.90-5.00) X 10*3/uL Monocytes # 0.14 L (0.20-1.00) X 10*3/uL Eosinophils # 0 L (0.04-0.35) X 10*3/uL BUN/Creatinine Ratio 30.29 H (12.00-20.00) Ratio Glucose 150 H (70-110) mg/dL Calcium 7.5 L (8.7-10.3) mg/dL Total Protein 5.1 L (6.2-8.2) g/dL Albumin 3.2 L (3.8-4.9) g/dL Assessment and Plan Assessment: Abdominal pain, lasting 3 to 4 days, of unclear etiology. The scan of the abdomen pelvis revealed no acute abnormalities Acute on chronic COPD, with possible mild exacerbation, and chronic changes on chest x-ray. Calcitonin negative at 0.08 Atrial fibrillation with rapid ventricular response, improved History of ongoing tobacco use with nicotine addiction Chronic hypoxemic respiratory failure, on home O2 at 4 L History of chronic constipation Anorexia/cachexia syndrome of chronic illness Plan: The patient was seen and evaluated Currently stable on 4 L nasal cannula Procalcitonin negative Recommend discontinuing antibiotics Continue bronchodilators, steroids Increase his activity as tolerated This patient was seen independently by the pulmonary nurse practitioner addressing pulmonary issues I have personally seen and examined the patient, performed the documentation and the assessment and plan as written. Number of minutes spent on the visit: 25.
[2023-10-05 13:11] VITALS: BMI 17.6
--- NOTE | 2023-10-05 18:21 | P.PN ---
Subjective Progress Note Date: 10/05/23 HISTORY OF PRESENT ILLNESS: This is an 87-year-old male with a previous medical history signifi cant for 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 failure on oxygen at home due to severe COPD with FEV1 of 37% of predicted, chronic atrial fibrillation, thoracic aortic aneurysm, abdominal aortic aneurysm, chronic diastolic heart failure, chronic pulmonary hypertension, patient was recently hospitalized at [facility] in March 2023 after he was admitted for what appears to be a right lower lobe Pseudomonas pneumonia involving the superior segment of the right lower lobe and it showed like a masslike consolidation back on the CT scan and he was treated and his x-ray showed improvement but never had a bronchoscopy, patient is following regularly with Dr. Zapata as an outpatient. Patient has been feeling ill for the last 4 weeks. Patient was recently admitted for right lower lobe pneumonia, shortness of breath and was complaining of fever chills fatigue tiredness and weight loss. He also had bilateral pleural effusions cardiomegaly and was found to have leukocytosis, coagulopathy with an INR of 9.7. Patient was treated in the hospital he was given IV antibiotic in the form of cefepime, and he was treated with IV Solu-Medrol 60 mg IV push every 6 hours, that was transitioned to oral prednisone as well as oral cefpodoxime that was supposed to be taken on last Monday, however the patient never picked up the prescription, his asked me to [facility] and the patient was looking for his prescription at [facility] in [place], patient picked up this prescription only yesterday Monday and he has not taken any medication since, he has been complaining of increased abdominal pain in the left upper quadrant therefore he was brought into the emergency department for evaluation, CT scan of the abdomen was negative for any acute process. Chest x-ray positive for residual pneumonia and left pleural effusion. Patient was subsequently put on cefepime 2 g 8 hours. Lactic was initially 2.7 and is now 1.8. Potassium was 3.1 and it has been replaced. Patient was admitted to inpatient. Will consult pulmonology and continue to follow with patient very closely. 10/04: Patient is sitting up in the chair in no apparent distress, he continues to be on 4 L nasal cannula, this is his baseline, he is feeling a bit better today, he had a bit nausea earlier today, he did receive Zofran for that, he denies any vomiting, he has been eating good, he had bowel movement, he continues to have his GERARD hose both lower extremities, he was seen earlier by pulmonary medicine, his medications were adjusted, patient will be kept in the hospital for another 24 hours, hopefully he will be able to discharge home tomorrow afternoon. REVIEW OF SYSTEMS: Constitutional: Negative for fever, negative for chills, no night sweats. Significant weight change. Positive for weakness, fatigue or lethargy. No d aytime sleepiness. HEENT: No headache. No blurred vision or double vision, no loss of vision. No loss of Hearing, no ringing in the ears, no dizziness. No nasal drainage or congestion. No epistaxis. No sore throat. Lungs: positive for shortness of breath, positive for cough, yellow and green s putum production. Reports dyspnea with activity. Cardiovascular: No chest pain, positive for lower extremity edema. positive for palpitations. No paroxysmal nocturnal dyspnea. No orthopnea. No lig htheadedness or dizziness. No syncopal episodes. Abdominal: Reports abdominal pain. positive for nausea, no vomiting. No diarrhea. No constipation. No bloody or tarry stools reports loss of appetite. Genitourinary: No dysuria, increased frequency, urgency. No urinary retention. Musculoskeletal: No myalgias. positive for muscle weakness, positive for gait dysfunction, no frequent falls. No back pain. No neck pain. Integumentary: No wounds, no lesions. No rash or pruritus. No unusual b ruising. No change in hair or nails. Neurologic: No aphasia. No facial droop. No change in mentation. No head injury. No headache. No paralysis. No paresthesia. Psychiatric: No depression. No anxiety. No mood swings. Endocrine: No abnormal blood sugars. No weight change. PHYSICAL EXAMINATION: General: 87-year-old male laying down in bed in minimal respiratory distress. HEENT: Head is atraumatic, normocephalic, pupils were equal round reactive to light and recommendation, extraocular muscle movement were intact, sclera nonicteric, conjunctivae were pale, mucous membranes of the mouth are somewhat dry. Neck: Supple, no JVP, normal carotid upstroke bilaterally, no lymphadenopathy. Chest: Decreased breath sounds at the bases, few rhonchi, minimal expiratory wheezes, no chest wall tenderness, no intercostal retractions. Heart: First heart sound is normal, second heart sound is normal irregularly irregular there is JULI 2/6 located at the left sternal border Abdomen: Soft, mild tenderness to the left upper quadrant no rebound or guarding, nondistended, positive bowel sounds. Extremities: There is +1 edema no calf tenderness DP +2 bilaterally. Neurologic examination: Patient is awake alert and oriented X 3, cranial nerves II-12 appear grossly intact, muscle power were 4 out of 5 in upper extremities and 3 out of 5 in bilateral lower extremities, deep tendon reflexes normal bilaterally. ASSESSMENT AND PLAN: 1. Residual gram-negative right lower lobe pneumonia with left-sided pleural effusion continue cefepime 2 g every 8 hours, continue patient on DuoNeb 3 mm nebulization 4 times every day, start the patient on Solu-Medrol 40 mg IV push every 8 hours, continue patient on oxygen at 4 L nasal cannula, and continue torsemide 20 mg orally once every day along with the spironolactone 25 mg orally once every day. 2. Left upper/lower quadrant abdominal pain. CT of the abdomen was negative. Pain is controlled at this time. Continue Tylenol, monitor the patient very closely. 2. Chronic diastolic heart failure with severe pulmonary hypertension. C ontinue spironolactone 25 mg once a day, continue patient on torsemide 20 mg orally once every day, continue metoprolol 50 mg orally twice every day, continue patient on Cardizem CD 180 mg orally once every day. Monitor the patient input and output and daily weight. 3. Chronic atrial fibrillation. Maintain the patient on metoprolol 50 mg orally twice every day as well as Cardizem CD 180 mg once every day, patient was given 2.5 mg of Coumadin tonight, pharmacy to dose, patient is very sensitive to Coumadin, will monitor INR in daily basis 6. Thoracic aortic aneurysm. Has been under the care of cardiology CT angiography is up-to-date. Has been stable at 4.5 cm. 7. Abdominal aortic aneurysm. Stable at 3.8 cm. 8. Bullous pemphigoid. Is stable. 9. DVT prophylaxis. Restart the patient back on Coumadin at 2.5 mg tonight Keep his INR between 2-3. 10. GI prophylaxis. Continue patient on Protonix 40 mg orally once every day. 11. Likely home tomorrow morning. Objective - Vital Signs Vital signs: Vital Signs Temp 97.6 F 10/05/23 14:00 Pulse 65 10/05/23 16:08 Resp 18 10/05/23 14:00 BP 93/59 10/05/23 14:00 Pulse Ox 90 L 10/05/23 14:00 FiO2 Intake & Output 10/04/23 10/05/23 10/05/23 18:59 06:59 18:59 Intake Total 720 Output Total 200 1350 Balance -200 -630 Weight 49.895 kg 58.967 kg Intake: Oral 720 Output: Urine 200 1350 Other: Voiding Method Bedside Commode - Labs CBC & Chem 7: 10/05/23 04:52 10/05/23 04:52 Labs: Abnormal Lab Results - Last 24 Hours (Table) 10/05/23 10/05/23 Range/Units 04:52 04:52 RBC 4.17 L (4.40-5.60) X 10*6/uL Hgb 10.1 L (13.0-17.0) g/dL Hct 34.3 L (39.6-50.0) % MCH 24.2 L (27.0-32.0) pg MCHC 29.4 L (32.0-37.0) g/dL RDW 19.7 H (11.5-14.5) % Immature Gran # 0.07 H (0.00-0.04) X 10*3/uL Lymphocytes # 0.13 L (0.90-5.00) X 10*3/uL Monocytes # 0.14 L (0.20-1.00) X 10*3/uL Eosinophils # 0 L (0.04-0.35) X 10*3/uL BUN/Creatinine Ratio 30.29 H (12.00-20.00) Ratio Glucose 150 H (70-110) mg/dL Calcium 7.5 L (8.7-10.3) mg/dL Total Protein 5.1 L (6.2-8.2) g/dL Albumin 3.2 L (3.8-4.9) g/dL
[2023-10-05] MEDS: methylPREDNISolone SOD SUCCI 40 MG/ML 1 ML VIAL IV SCH (18:26)
[2023-10-05] MEDS: WARFARIN 2.5 MG TAB PO ONE (18:27)
[2023-10-05] MEDS: CEFEPIME 2 GM in SODIUM CHLORIDE 0.9% 100 ML IVPB SCH (20:54)
[2023-10-06 07:10] LABS: INR 1.3 (<1.2); Prothrombin Time 13.9 sec (10.0-12.5)
[2023-10-06 11:07] LABS: Basophils # (A) 0 X 10*3/uL (0.00-0.10); Basophils % (A) 0 %; Eosinophils # (A) 0 X 10*3/uL (0.04-0.35); Eosinophils % (A) 0 %; HCT 30.9 % (39.6-50.0); HGB 9.2 g/dL (13.0-17.0); Lymphocytes # (A) 0.21 X 10*3/uL (0.90-5.00); Lymphocytes % (A) 1.6 %; MCH 24.3 pg (27.0-32.0); MCHC 29.8 g/dL (32.0-37.0); MCV 81.5 FL (80.0-97.0); Mean Platelet Volume 10.4 FL (9.5-12.2); Monocytes # (A) 0.51 X 10*3/uL (0.20-1.00); NRBC Per 100 WBC 0 X 10*3/uL (0.00-0.01); Neutrophils # (A) 11.93 X 10*3/uL (1.80-7.70); Neutrophils % (A) 93.5 %; Platelet Count 171 X 10*3/uL (140-440); RBC 3.79 X 10*6/uL (4.40-5.60); RDW 19.5 % (11.5-14.5); WBC 12.77 X 10*3/uL (4.50-10.00)
[2023-10-06 11:35] LABS: ALT 29 U/L (10-49); AST 28 U/L (14-35); Albumin 3.2 g/dL (3.8-4.9); Albumin/Globulin Ratio 1.78 Ratio (1.60-3.17); Alkaline Phosphatase 104 U/L (41-126); BUN/Creat Ratio 38.88 Ratio (12.00-20.00); Blood Urea Nitrogen 31.1 mg/dL (9.0-27.0); Calcium 7.7 mg/dL (8.7-10.3); Chloride 96 mmol/L (96-109); Globulin 1.8 g/dL (1.6-3.3); Glucose 118 mg/dL (70-110); Potassium 3.7 mmol/L (3.5-5.5); Sodium 139 mmol/L (135-145); Total Bilirubin 0.2 mg/dL (0.3-1.2)
--- NOTE | 2023-10-06 12:11 | CDI ---
Documentation Clarification Form Date: 10/06/2023 11:52:47 AM From: Kira Manuel RN CCDS Phone: [phone] Admit Date: 10/04/2023 02:32:00 PM Patient Name: Ge Foster Visit Number: [id number] Discharge Date: ATTENTION: The Clinical Documentation Specialists (CDI) and [facility] Coding Staff appreciate your assistance in clarifying documentation. Please respond to the clarification below the line at the bottom and electronically sign. The CDI & [facility] Coding staff will review the response and follow-up if needed. Please note: Queries are made part of the Legal Health Record. If you have any questions, please contact the author of this message via ITS. Dr. Eugene Todd The Registered Dietitian assessment on 10/05/2023 indicates this patient is under weight. Based on this information and the findings below, is there an additional diagnosis that is clinically appropriate for this patient? History/Risk Factors: 87 year old male presents to the ED for feeling ill hasnt taken medication since discharge last Monday. Medical history: chronic respiratory failure, COPD, Severe pulmonary hypertension, pafib, Severe COPD with FEV1 of 37% of predicted and OA. 10/03. Clinical Indicators: HP, 10/03: Patient was reently admitted for right lower lobe pneumonia, shortness of breath and was complaining of fever chills fatigue tiredness and weight loss. Pulmonary consult, 10/03: Anorexia/cachexia syndrome of chronic illness. Nutritional Assessment: Appetite: Fair; Regular diet 100% x 1 meal consumed. BMI: 17.6kg Hgt 6ft Weight 58.967kg. Estimated KCAL Needs 1609; KCAL comment MSJ ([id number]) AF X 1.3 Estimated protein range 1.2gms/kg; estimated protein Needs 87gms/day Estimated Fluid needs formula 1ml/Kcal Estimated fluid needs 1609 [Cite applicable ASPEN criteria listed below] RD Consult Assessment: Treatment: General / healthful diet, Monitor po intake along with Supplement intake, Dietary consult. Monitory daily weights. Supplements: Ensure enlive TID Is there an additional diagnosis that is clinically appropriate for this patient? [ X] Severe Protein-Calorie Malnutrition [ ] No additional diagnosis/Not clinically significant [ ] Other condition, please specify [ ] Unable to Determine In responding to this query, please exercise your independent professional judgment. The [facility] Coding Staff and Clinical Documentation Specialists appreciate your assistance in clarifying documentation, maintaining compliance with coding guidelines, accurately documenting patients condition and capturing severity of illness. The fact that a question is asked does not imply that any particular answer is desired or expected. Communication forms are a method of clarifying documentation and are made part of the Legal Health Record. Thank you in advance for your clarification. Last Reviewed October 2022 Reference: Using the ASPEN Guidelines, Undernutrition (Malnutrition) is characterized by at least two of the following six findings. The severity can be determined based on the criteria listed below. Malnutrition Characteristics for Moderate and Severe Malnutrition Type of Malnutrition Acute Illness or Injury Chronic Illness Degree of Malnutrition Non-severe (moderate) Malnutrition Severe Malnutrition Non-severe (moderate) Malnutrition Severe Malnutrition Energy Intake <75% for >7 days = 50% for = 5 days <75% for = 1 month =75% for = 1 month Weight Loss 1-2% in one week, 5% in 1 month, 7.5% in 3 months 2% in one week, >5% in 1 month, >7.5% in 3 months 5% in one month, 7.5% in 3 months, 10% in 6 months, 20% in 1 year >5% in one month, >7.5% in 3 months, >10% in 6 months, >20% in 1 year Body Fat Wasting Mild Moderate Mild Severe Muscle Wasting Mild Moderate Mild Severe Presence of Edema Mild Moderate to Severe Mild Severe Custodial Operations Manager Strength Not applicable Measurably Reduced Not applicable Measurably Reduced Source: Troy MasonV, Marko P, Moct[place]uma G, et al. Consensus statement: Academy of Nutrition and Dietetics and [place] Society for Parenteral and Enteral Nutrition: characteristics recommended for the identification and documentation of adult malnutrition (undernutrition).MECHELLE J Parenter Enteral Nutr. 2012;36(3):275-283. (Template Last Revised: October 2022) MTDD
--- NOTE | 2023-10-06 12:48 | P.PN ---
Subjective Progress Note Date: 10/06/23 87-year-old male seen today in room 455. He presented to the emergency room, via EMS, complaining primarily of abdominal pain. For the last 3 to 4 days, he has been having significant abdominal pain. In addition, he complains of cough, shortness of breath, and phlegm production. His primary reason for coming into the emergency department, was abdominal discomfort. He denied any vomiting or diarrhea. He called EMS, and apparently when they arrived, he was in atrial fibrillation with a rapid ventricular response. The patient was very short of breath. For that reason, he was evaluated in the ER, and admitted. 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 He uses oxygen at home, at 4 L/min, 21/11. His chest x-ray shows some chronic changes particular in the right midlung, and those are primarily unchanged. He denies any fever or chills. He denies any chest pain or chest discomfort. His medical history includes atrial fibrillation, COPD, cataract surgery, also repaired, many years ago, and severe COPD. He also has a history of ascending thoracic aortic aneurysm, and has chronic constipation as well. Current labs include a white count 8.9, hemoglobin 10.8, hematocrit 36.5, and a normal platelet count. Coagulation studies are normal. Sodium 136, potassium 3.1, chlorides 93, CO2 41, BUN 40, and creatinine 0.67. Lactic acid was 2 point 6 repeat was 1.8. Calcium was 7.8. Albumin was 3. Chest x-ray today, as compared to 1 that was done in August. It shows some residual airspace consolidation, within the right lung. In my opinion, this area is not changed, or even a bit better. The patient does have changes of COPD, and a very small left pleural effusion. CT scan of the abdomen pelvis, shows moderate stool throughout the colon and evidence of abdominal aortic aneurysm. There appears to be nothing significantly acute and the CT scan of the abdomen and pelvis. The patient is seen today October 05, 2023 in follow-up on the regular medical floor. He is up ambulating with a walker and assistance. He is doing better to day compared to yesterday. He is maintaining good O2 saturations in the 90s on 4 L/min per nasal cannula. No IV fluids. He remains on DuoNeb inhalations, Pulmicort and Perforomist inhalations, Solu-Medrol. He is on Maxipime. His procalcitonin was negative at 0.08. White count 5.1. Hemoglobin 10.1. Platelets 202. Sodium 140. Potassium 3.7. Bicarb 32. BUN 21. Creatinine 0.7. Glucose 150. The patient is seen today October 06, 2023 in follow-up on the regular medical floor. He is sitting up in bed. Awake and alert in no acute distress. Denies any worsening shortness of breath. Continues with loose nonproductive cough. No fever or chills. Feeling better today compared to yesterday. Maintaining O2 saturations in the 90s on 4 L nasal cannula. He is afebrile. Hemodynamically stable. White count 12.7. Hemoglobin 9.2. Platelets 171. Sodium 139. Potassium 3.7. Bicarb 33. BUN 31. Creatinine 0.8. Glucose 118. INR 1.3. Remains on warfarin. Continued on bronchodilators and steroids. Objective - Vital Signs Vital signs: Vital Signs Temp 97.5 F L 10/06/23 07:32 Pulse 72 10/06/23 11:55 Resp 17 10/06/23 07:32 BP 109/78 10/06/23 07:32 Pulse Ox 93 L 10/06/23 07:39 FiO2 Intake & Output 10/05/23 10/06/23 10/06/23 18:59 06:59 18:59 Intake Total 720 Output Total 1350 225 200 Balance -630 -225 -200 Weight 58.967 kg Intake: Oral 720 Output: Urine 1350 225 200 Other: # Voids 6 4 1 - Exam GENERAL EXAM: Alert, frail 87-year-old male, on 4 L nasal cannula, in no apparent distress. HEAD: Normocephalic. EYES: Normal reaction of pupils, equal size. NOSE: Clear with pink turbinates. THROAT: No erythema or exudates. NECK: No masses, no JVD. CHEST: No chest wall deformity. LUNGS: Equal air entry with end expiratory wheeze, diminished. CVS: S1 and S2 normal with no audible murmur, regular rhythm. ABDOMEN: No hepatosplenomegaly, normal bowel sounds, no guarding or rigidity. SPINE: No scoliosis or deformity SKIN: No rashes CENTRAL NERVOUS SYSTEM: No focal deficits, tone is normal in all 4 extremities. EXTREMITIES: There is no peripheral edema. No clubbing, no cyanosis. Peripheral pulses are intact. - Labs CBC & Chem 7: 10/06/23 06:12 10/06/23 06:12 Labs: Abnormal Lab Results - Last 24 Hours (Table) 10/06/23 10/06/23 10/06/23 Range/Units 06:12 06:12 06:12 WBC 12.77 H (4.50-10.00) X 10*3/uL RBC 3.79 L (4.40-5.60) X 10*6/uL Hgb 9.2 L (13.0-17.0) g/dL Hct 30.9 L (39.6-50.0) % MCH 24.3 L (27.0-32.0) pg MCHC 29.8 L (32.0-37.0) g/dL RDW 19.5 H (11.5-14.5) % Immature Gran # 0.12 H (0.00-0.04) X 10*3/uL Neutrophils # 11.93 H (1.80-7.70) X 10*3/uL Lymphocytes # 0.21 L (0.90-5.00) X 10*3/uL Eosinophils # 0 L (0.04-0.35) X 10*3/uL PT 13.9 H (10.0-12.5) sec INR 1.3 H (<1.2) Carbon Dioxide 33.0 H (21.6-31.8) mmol/L BUN 31.1 H (9.0-27.0) mg/dL BUN/Creatinine Ratio 38.88 H (12.00-20.00) Ratio Glucose 118 H (70-110) mg/dL Calcium 7.7 L (8.7-10.3) mg/dL Total Bilirubin 0.2 L (0.3-1.2) mg/dL Total Protein 5.0 L (6.2-8.2) g/dL Albumin 3.2 L (3.8-4.9) g/dL Assessment and Plan Assessment: Abdominal pain, lasting 3 to 4 days, of unclear etiology. CT scan of the abdomen pelvis revealed no acute abnormalities Acute on chronic COPD, with possible mild exacerbation, and chronic changes on chest x-ray. Procalcitonin negative at 0.08 Atrial fibrillation with rapid ventricular response, improved History of ongoing tobacco use with nicotine addiction Chronic hypoxemic respiratory failure, on home O2 at 4 L History of chronic constipation Anorexia/cachexia syndrome of chronic illness Plan: The patient was seen and evaluated Currently stable on 4 L nasal cannula Continue bronchodilators, steroids Increase his activity as tolerated Plan is for home with home care at discharge I have personally seen and examined the patient, performed the documentation and the assessment and plan as written. Number of minutes spent on the visit: 10.
--- NOTE | 2023-10-06 16:48 | P.PN ---
Subjective Progress Note Date: 10/06/23 HISTORY OF PRESENT ILLNESS: This is an 87-year-old male with a previous medical history signifi cant for 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 failure on oxygen at home due to severe COPD with FEV1 of 37% of predicted, chronic atrial fibrillation, thoracic aortic aneurysm, abdominal aortic aneurysm, chronic diastolic heart failure, chronic pulmonary hypertension, patient was recently hospitalized at [facility] in March 2023 after he was admitted for what appears to be a right lower lobe Pseudomonas pneumonia involving the superior segment of the right lower lobe and it showed like a masslike consolidation back on the CT scan and he was treated and his x-ray showed improvement but never had a bronchoscopy, patient is following regularly with Dr. Zapata as an outpatient. Patient has been feeling ill for the last 4 weeks. Patient was recently admitted for right lower lobe pneumonia, shortness of breath and was complaining of fever chills fatigue tiredness and weight loss. He also had bilateral pleural effusions cardiomegaly and was found to have leukocytosis, coagulopathy with an INR of 9.7. Patient was treated in the hospital he was given IV antibiotic in the form of cefepime, and he was treated with IV Solu-Medrol 60 mg IV push every 6 hours, that was transitioned to oral prednisone as well as oral cefpodoxime that was supposed to be taken on last Monday, however the patient never picked up the prescription, his asked me to [facility] the [facility] and the patient was looking for his prescription at [facility] in [place], patient picked up this prescription only yesterday Monday and he has not taken any medication since, he has been complaining of increased abdominal pain in the left upper quadrant therefore he was brought into the emergency department for evaluation, CT scan of the abdomen was negative for any acute process. Chest x-ray positive for residual pneumonia and left pleural effusion. Patient was subsequently put on cefepime 2 g 8 hours. Lactic was initially 2.7 and is now 1.8. Potassium was 3.1 and it has been replaced. Patient was admitted to inpatient. Will consult pulmonology and continue to follow with patient very closely. 10/04: Patient is sitting up in the chair in no apparent distress, he continues to be on 4 L nasal cannula, this is his baseline, he is feeling a bit better today, he had a bit nausea earlier today, he did receive Zofran for that, he denies any vomiting, he has been eating good, he had bowel movement, he continues to have his GERARD hose both lower extremities, he was seen earlier by pulmonary medicine, his medications were adjusted, patient will be kept in the hospital for another 24 hours, hopefully he will be able to discharge home tomorrow afternoon. 10/05: Patient sitting up in bed receiving breathing treatment at this time and is in no apparent distress. He continues to be on 4 L nasal cannula and does wear 4 L at home as well. Patient feels he is not ready to go home and is concerned about returning to the hospital if he is discharged. Patient will likely be discharged tomorrow morning. INR is 1.3 we will give 1 dose of warfarin 5 mg at bedtime today. REVIEW OF SYSTEMS: Constitutional: Negative for fever, negative for chills, no night sweats. Significant weight change. Positive for weakness, fatigue or lethargy. No daytime sleepiness. HEENT: No headache. No blurred vision or double vision, no loss of vision. No loss of Hearing, no ringing in the ears, no dizziness. No nasal drainage or congestion. No epistaxis. No sore throat. Lungs: positive for shortness of breath, positive for cough, yellow and green sputum production. Reports dyspnea with activity. Cardiovascular: No chest pain, positive for lower extremity edema. positive for palpitations. No paroxysmal nocturnal dyspnea. No orthopnea. No lightheadedness or dizziness. No syncopal episodes. Abdominal: Reports abdominal pain. positive for nausea, no vomiting. No diarrhea. No constipation. No bloody or tarry stools reports loss of appetite. Genitourinary: No dysuria, increased frequency, urgency. No urinary retention. Musculoskeletal: No myalgias. positive for muscle weakness, positive for gait dysfunction, no frequent falls. No back pain. No neck pain. Integumentary: No wounds, no lesions. No rash or pruritus. No unusual bruising. No change in hair or nails. Neurologic: No aphasia. No facial droop. No change in mentation. No head injury. No headache. No paralysis. No paresthesia. Psychiatric: No depression. No anxiety. No mood swings. Endocrine: No abnormal blood sugars. No weight change. PHYSICAL EXAMINATION: General: 87-year-old male laying down in bed in minimal respiratory distress. HEENT: Head is atraumatic, normocephalic, pupils were equal round reactive to light and recommendation, extraocular muscle movement were intact, sclera nonicteric, conjunctivae were pale, mucous membranes of the mouth are somewhat dry. Neck: Supple, no JVP, normal carotid upstroke bilaterally, no lymphadenopathy. Chest: Decreased breath sounds at the bases, few rhonchi, minimal expiratory wheezes, no chest wall tenderness, no intercostal retractions. Heart: First heart sound is normal, second heart sound is normal irregularly irregular there is JULI 2/6 located at the left sternal border Abdomen: Soft, mild tenderness to the left upper quadrant no rebound or guarding, nondistended, positive bowel sounds. Extremities: There is +1 edema no calf tenderness DP +2 bilaterally. Neurologic examination: Patient is awake alert and oriented X 3, cranial nerves II-12 appear grossly intact, muscle power were 4 out of 5 in upper extremities and 3 out of 5 in bilateral lower extremities, deep tendon reflexes normal bilaterally. ASSESSMENT AND PLAN: 1. Residual gram-negative right lower lobe pneumonia with left-sided pleural effusion, mild left states/continue patient on DuoNeb 3 mm nebulization 4 times every day, start the patient on Solu-Medrol 40 mg IV push every 8 hours, continu e patient on oxygen at 4 L nasal cannula, and continue torsemide 20 mg orally once every day along with the spironolactone 25 mg orally once every day. Cefepime was discontinued. 2. Left upper/lower quadrant abdominal pain. CT of the abdomen was negative. Pain is controlled at this time. Continue Tylenol, monitor the patient very closely. 2. Chronic diastolic heart failure with severe pulmonary hypertension. Continue spironolactone 25 mg once a day, continue patient on torsemide 20 mg orally once every day, continue metoprolol 50 mg orally twice every day, continue patient on Cardizem CD 180 mg orally once every day. Monitor the patient input and output and daily weight. 3. Chronic atrial fibrillation. Maintain the patient on metoprolol 50 mg orally twice every day as well as Cardizem CD 180 mg once every day, patient was given 2.5 mg of Coumadin [facility], pharmacy to dose, patient is very sensitive to Coumadin, will monitor INR in daily basis 6. Thoracic aortic aneurysm. Has been under the care of cardiology CT angiography is up-to-date. Has been stable at 4.5 cm. 7. Abdominal aortic aneurysm. Stable at 3.8 cm. 8. Bullous pemphigoid. Is stable. 9. DVT prophylaxis. Restart the patient back on Coumadin at 2.5 mg tonight. Keep his INR between 2-3. 10. GI prophylaxis. Continue patient on Protonix 40 mg orally once every day. 11. Likely home tomorrow morning. Objective - Vital Signs Vital signs: Vital Signs Temp 98.7 F 10/06/23 13:47 Pulse 74 10/06/23 15:43 Resp 19 10/06/23 13:47 BP 95/64 10/06/23 13:47 Pulse Ox 95 10/06/23 13:47 FiO2 Intake & Output 10/05/23 10/06/23 10/06/23 18:59 06:59 18:59 Intake Total 720 Output Total 1350 225 200 Balance -630 -225 -200 Weight 58.967 kg Intake: Oral 720 Output: Urine 1350 225 200 Other: Voiding Method Bedside Commode # Voids 6 4 1 - Labs CBC & Chem 7: 10/06/23 06:12 10/06/23 06:12 Labs: Abnormal Lab Results - Last 24 Hours (Table) 10/06/23 10/06/23 10/06/23 Range/Units 06:12 06:12 06:12 WBC 12.77 H (4.50-10.00) X 10*3/uL RBC 3.79 L (4.40-5.60) X 10*6/uL Hgb 9.2 L (13.0-17.0) g/dL Hct 30.9 L (39.6-50.0) % MCH 24.3 L (27.0-32.0) pg MCHC 29.8 L (32.0-37.0) g/dL RDW 19.5 H (11.5-14.5) % Immature Gran # 0.12 H (0.00-0.04) X 10*3/uL Neutrophils # 11.93 H (1.80-7.70) X 10*3/uL Lymphocytes # 0.21 L (0.90-5.00) X 10*3/uL Eosinophils # 0 L (0.04-0.35) X 10*3/uL PT 13.9 H (10.0-12.5) sec INR 1.3 H (<1.2) Carbon Dioxide 33.0 H (21.6-31.8) mmol/L BUN 31.1 H (9.0-27.0) mg/dL BUN/Creatinine Ratio 38.88 H (12.00-20.00) Ratio Glucose 118 H (70-110) mg/dL Calcium 7.7 L (8.7-10.3) mg/dL Total Bilirubin 0.2 L (0.3-1.2) mg/dL Total Protein 5.0 L (6.2-8.2) g/dL Albumin 3.2 L (3.8-4.9) g/dL
[2023-10-06] MEDS ORDERED: WARFARIN 2.5 MG TAB PO ONE (18:00)
[2023-10-06] MEDS: WARFARIN 5 MG TAB PO ONE (18:19)
[2023-10-07 02:35] VITALS: TEMP 97.6
[2023-10-07 07:59] LABS: INR 1.5 (<1.2); Prothrombin Time 15.8 sec (10.0-12.5)
[2023-10-07] MEDS: SYMBICORT 160-4.5 MCG INHALER INHALATION SCH (08:23)
--- NOTE | 2023-10-07 08:25 | P.PN ---
Subjective Progress Note Date: 10/07/23 87-year-old male seen today in room 455. He presented to the emergency room, via EMS, complaining primarily of abdominal pain. For the last 3 to 4 days, he has been having significant abdominal pain. In addition, he complains of cough, shortness of breath, and phlegm production. His primary reason for coming into the emergency department, was abdominal discomfort. He denied any vomiting or diarrhea. He called EMS, and apparently when they arrived, he was in atrial fibrillation with a rapid ventricular response. The patient was very short of breath. For that reason, he was evaluated in the ER, and admitted. 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 He uses oxygen at home, at 4 L/min, 21/11. His chest x-ray shows some chronic changes particular in the right midlung, and those are primarily unchanged. He denies any fever or chills. He denies any chest pain or chest discomfort. His medical history includes atrial fibrillation, COPD, cataract surgery, also repaired, many years ago, and severe COPD. He also has a history of ascending thoracic aortic aneurysm, and has chronic constipation as well. Current labs include a white count 8.9, hemoglobin 10.8, hematocrit 36.5, and a normal platelet count. Coagulation studies are normal. Sodium 136, potassium 3.1, chlorides 93, CO2 41, BUN 40, and creatinine 0.67. Lactic acid was 2 point 6 repeat was 1.8. Calcium was 7.8. Albumin was 3. Chest x-ray today, as compared to 1 that was done in August. It shows some residual airspace consolidation, within the right lung. In my opinion, this area is not changed, or even a bit better. The patient does have changes of COPD, and a very small left pleural effusion. CT scan of the abdomen pelvis, shows moderate stool throughout the colon and evidence of abdominal aortic aneurysm. There appears to be nothing significantly acute and the CT scan of the abdomen and pelvis. The patient is seen today October 05, 2023 in follow-up on the regular medical floor. He is up ambulating with a walker and assistance. He is doing better to day compared to yesterday. He is maintaining good O2 saturations in the 90s on 4 L/min per nasal cannula. No IV fluids. He remains on DuoNeb inhalations, Pulmicort and Perforomist inhalations, Solu-Medrol. He is on Maxipime. His procalcitonin was negative at 0.08. White count 5.1. Hemoglobin 10.1. Platelets 202. Sodium 140. Potassium 3.7. Bicarb 32. BUN 21. Creatinine 0.7. Glucose 150. The patient is seen today October 06, 2023 in follow-up on the regular medical floor. He is sitting up in bed. Awake and alert in no acute distress. Denies any worsening shortness of breath. Continues with loose nonproductive cough. No fever or chills. Feeling better today compared to yesterday. Maintaining O2 saturations in the 90s on 4 L nasal cannula. He is afebrile. Hemodynamically stable. White count 12.7. Hemoglobin 9.2. Platelets 171. Sodium 139. Potassium 3.7. Bicarb 33. BUN 31. Creatinine 0.8. Glucose 118. INR 1.3. Remains on warfarin. Continued on bronchodilators and steroids. The patient is seen today October 07, 2023 in follow-up on the regular medical floor. He is awake and alert in no acute distress. Sitting up in bed. Denies any worsening shortness of breath, cough or congestion. He still has dyspnea on exertion. He remains on DuoNeb inhalations, Pulmicort and Perforomist inhalations, IV Solu-Medrol. He is maintaining O2 saturations up to 100% on 4 L/min per nasal cannula. This will be titrated down. He remains on warfarin with INR 1.5. Objective - Vital Signs Vital signs: Vital Signs Temp 97.6 F 10/07/23 07:59 Pulse 77 10/07/23 07:59 Resp 16 10/07/23 07:59 BP 147/76 10/07/23 07:59 Pulse Ox 100 10/07/23 07:59 FiO2 Intake & Output 10/06/23 10/07/23 10/07/23 18:59 06:59 18:59 Output Total 200 300 Balance -200 -300 Output: Urine 200 300 Other: Voiding Method Bedside Commode Bedside Commode Urinal # Voids 1 # Bowel Movements 2 - Exam GENERAL EXAM: Alert, frail, cachectic 87-year-old male, on 4 L nasal cannula, in no apparent distress. HEAD: Normocephalic. EYES: Normal reaction of pupils, equal size. NOSE: Clear with pink turbinates. THROAT: No erythema or exudates. NECK: No masses, no JVD. CHEST: No chest wall deformity. LUNGS: Equal air entry with end expiratory wheeze, diminished. CVS: S1 and S2 normal with no audible murmur, regular rhythm. ABDOMEN: No hepatosplenomegaly, normal bowel sounds, no guarding or rigidity. SPINE: No scoliosis or deformity SKIN: No rashes multiple areas of ecchymosis secondary to chronic steroids CENTRAL NERVOUS SYSTEM: No focal deficits, tone is normal in all 4 extremities. EXTREMITIES: There is no peripheral edema. No clubbing, no cyanosis. Peripheral pulses are intact. - Labs CBC & Chem 7: 10/06/23 06:12 10/06/23 06:12 Labs: Abnormal Lab Results - Last 24 Hours (Table) 10/06/23 10/06/23 10/07/23 Range/Units 06:12 06:12 06:37 WBC 12.77 H (4.50-10.00) X 10*3/uL RBC 3.79 L (4.40-5.60) X 10*6/uL Hgb 9.2 L (13.0-17.0) g/dL Hct 30.9 L (39.6-50.0) % MCH 24.3 L (27.0-32.0) pg MCHC 29.8 L (32.0-37.0) g/dL RDW 19.5 H (11.5-14.5) % Immature Gran # 0.12 H (0.00-0.04) X 10*3/uL Neutrophils # 11.93 H (1.80-7.70) X 10*3/uL Lymphocytes # 0.21 L (0.90-5.00) X 10*3/uL Eosinophils # 0 L (0.04-0.35) X 10*3/uL PT 15.8 H (10.0-12.5) sec INR 1.5 H (<1.2) Carbon Dioxide 33.0 H (21.6-31.8) mmol/L BUN 31.1 H (9.0-27.0) mg/dL BUN/Creatinine Ratio 38.88 H (12.00-20.00) Ratio Glucose 118 H (70-110) mg/dL Calcium 7.7 L (8.7-10.3) mg/dL Total Bilirubin 0.2 L (0.3-1.2) mg/dL Total Protein 5.0 L (6.2-8.2) g/dL Albumin 3.2 L (3.8-4.9) g/dL Assessment and Plan Assessment: Abdominal pain, lasting 3 to 4 days, of unclear etiology. CT scan of the abdom en pelvis revealed no acute abnormalities Acute on chronic COPD, with possible mild exacerbation, and chronic changes on chest x-ray. Procalcitonin negative at 0.08 Atrial fibrillation with rapid ventricular response, improved History of ongoing tobacco use with nicotine addiction Chronic hypoxemic respiratory failure, on home O2 at 4 L History of chronic constipation Anorexia/cachexia syndrome of chronic illness Plan: The patient was seen and evaluated Currently stable on 4 L nasal cannula Titrate down the FiO2 as tolerated Discontinue Pulmicort and Perforomist Initiate Symbicort Discontinue IV Solu-Medrol Initiate a prednisone taper Cleared for discharge from the pulmonary standpoint All of the patient's questions have been answered He does have end-stage chronic obstructive pulmonary disease Educated regarding the importance of complete smoking cessation Follow-up in our office in 1 week I have personally seen and examined the patient, performed the documentation and the assessment and plan as written. Number of minutes spent on the visit: 10.
[2023-10-07] MEDS: predniSONE 20 MG TAB PO SCH (08:41)
[2023-10-07 10:01] LABS: Basophils # (A) 0.01 X 10*3/uL (0.00-0.10); Basophils % (A) 0.1 %; Eosinophils # (A) 0.04 X 10*3/uL (0.04-0.35); Eosinophils % (A) 0.3 %; HCT 33.6 % (39.6-50.0); Lymphocytes # (A) 0.23 X 10*3/uL (0.90-5.00); Lymphocytes % (A) 1.7 %; MCH 24.4 pg (27.0-32.0); MCHC 29.8 g/dL (32.0-37.0); MCV 82.2 FL (80.0-97.0); Mean Platelet Volume 10.6 FL (9.5-12.2); Monocytes # (A) 0.33 X 10*3/uL (0.20-1.00); Monocytes % (A) 2.5 %; NRBC Per 100 WBC 0 X 10*3/uL (0.00-0.01); Neutrophils # (A) 12.52 X 10*3/uL (1.80-7.70); Platelet Count 172 X 10*3/uL (140-440); RBC 4.09 X 10*6/uL (4.40-5.60); RDW 19.7 % (11.5-14.5); WBC 13.31 X 10*3/uL (4.50-10.00)
[2023-10-07 10:22] LABS: ALT 28 U/L (10-49); AST 29 U/L (14-35); Albumin 3.4 g/dL (3.8-4.9); Alkaline Phosphatase 110 U/L (41-126); BUN/Creat Ratio 38.88 Ratio (12.00-20.00); Blood Urea Nitrogen 31.1 mg/dL (9.0-27.0); Calcium 7.9 mg/dL (8.7-10.3); Carbon Dioxide 37.5 mmol/L (21.6-31.8); Chloride 91 mmol/L (96-109); Glucose 128 mg/dL (70-110); Potassium 3.3 mmol/L (3.5-5.5); Sodium 138 mmol/L (135-145); Total Bilirubin 0.3 mg/dL (0.3-1.2); Total Protein 5.4 g/dL (6.2-8.2)
[2023-10-07] MEDS: POTASSIUM CHLORIDE ER 20 MEQ TAB.ER PO STA (12:16)
[2023-10-07 13:50] VITALS: BP 93/61; PULSE 77; RESP 18
--- NOTE | 2023-10-07 17:25 | P.DS ---
Providers Date of admission: 10/04/23 14:32 Attending physician: Eugene Todd Consults: 10/04/23 11:31 Consult Physician Routine Consulting Provider: John Zapata Reason/Comments: pneumonia Do you want consulting provider notified?: Yes Primary care physician: Eugene Todd Hospital Course: HISTORY OF PRESENT ILLNESS: This is an 87-year-old male with a previous medical history signifi cant for 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 failure on oxygen at home due to severe COPD with FEV1 of 37% of predicted, chronic atrial fibrillation, thoracic aortic aneurysm, abdominal aortic aneurysm, chronic diastolic heart failure, chronic pulmonary hypertension, patient was recently hospitalized at [facility] in March 2023 after he was admitted for what appears to be a right lower lobe Pseudomonas pneumonia involving the superior segment of the right lower lobe and it showed like a masslike consolidation back on the CT scan and he was treated and his x-ray showed improvement but never had a bronchoscopy, patient is following regularly with Dr. Zapata as an outpatient. Patient has been feeling ill for the last 4 weeks. Patient was recently admitted for right lower lobe pneumonia, shortness of breath and was complaining of fever chills fatigue tiredness and weight loss. He also had bilateral pleural effusions cardiomegaly and was found to have leukocytosis, coagulopathy with an INR of 9.7. Patient was treated in the hospital he was given IV antibiotic in the form of cefepime, and he was treated with IV Solu-Medrol 60 mg IV push every 6 hours, that was transitioned to oral prednisone as well as oral cefpodoxime that was supposed to be taken on last Monday, however the patient never picked up the prescription, his asked me to [facility] the [facility] to [facility] and the patient was looking for his prescription at [facility] in [place], patient picked up this prescription only yesterday Monday and he has not taken any medication since, he has been complaining of increased abdominal pain in the left upper quadrant therefore he was brought into the emergency department for evaluation, CT scan of the abdomen was negative for any acute process. Chest x-ray positive for residual pneumonia and left pleural effusion. Patient was subsequently put on cefepime 2 g 8 hours. Lactic was initially 2.7 and is now 1.8. Potassium was 3.1 and it has been replaced. Patient was admitted to inpatient. Will consult pulmonology and continue to follow with patient very closely. 10/04: Patient is sitting up in the chair in no apparent distress, he continues to be on 4 L nasal cannula, this is his baseline, he is feeling a bit better today, he had a bit nausea earlier today, he did receive Zofran for that, he denies any vomiting, he has been eating good, he had bowel movement, he continues to have his GERARD hose both lower extremities, he was seen earlier by pulmonary medicine, his medications were adjusted, patient will be kept in the hospital for another 24 hours, hopefully he will be able to discharge home tomorrow afternoon. 10/05: Patient sitting up in bed receiving breathing treatment at this time and is in no apparent distress. He continues to be on 4 L nasal cannula and does wear 4 L at home as well. Patient feels he is not ready to go home and is concerned about returning to the hospital if he is discharged. Patient will likely be discharged tomorrow morning. INR is 1.3 we will give 1 dose of warfarin 5 mg at bedtime today. 10/06: Patient sitting up in bed, states he feels much better today. He feels the Symbicort has made a significant difference in his breathing. Patient to be discharged home today and seen in the office next week. DISCHARGE DIAGNOSES: 1. Residual gram-negative right lower lobe pneumonia with left-sided pleural effusion. 2. Left upper/lower quadrant abdominal pain. . 2. Chronic diastolic heart failure with severe pulmonary hypertension. C. 3. Chronic atrial fibrillation. . 6. Thoracic aortic aneurysm. 7. Abdominal aortic aneurysm. 8. Bullous pemphigoid. Impression and plan of care have been directed as dictated by the signing ph ysician. Kamila Huntley, nurse practitioner acting as scribe for signing physician. Patient Condition at Discharge: Stable Plan - Discharge Summary Discharge Rx Participant: No New Discharge Prescriptions: New Budesonide-Formot 160-4.5 Mcg [Symbicort 160-4.5 Mcg Inhaler] 2 puff INHALATION RT-BID 30 Days #1 each Continue Acetaminophen [Tylenol] 1,000 mg PO QID PRN PRN Reason: Pain Or Fever > 100.5 Spironolactone [Aldactone] 25 mg PO DAILY Multivitamins, Thera [Multivitamin (formulary)] 1 tab PO DAILY Diltiazem Cd [Cardizem CD] 180 mg PO DIRECTED Fluticasone/Umeclidin/Vilanter [Trelegy Ellipta 100-62.5-25] 1 puff INHALATION DIRECTED guaiFENesin-DM 600/30MG [Mucinex Dm] 2 tab PO DIRECTED Ipratropium-Albuterol Nebulize [Duoneb 0.5 mg-3 mg/3 ml Soln] 3 ml INHALATION DIRECTED Nystatin 100,000 Unit/ml Susp [Mycostatin Oral Susp] 500,000 unit PO DIRECTED Torsemide [Demadex] 20 mg PO DIRECTED Albuterol Sulfate [Albuterol Sulfate Hfa] 2 puff INHALATION RT-QID PRN PRN Reason: Shortness Of Breath Cefpodoxime Proxetil [Vantin] 200 mg PO DIRECTED Metoprolol Succinate (ER) [Toprol XL] 50 mg PO DIRECTED predniSONE [Deltasone] See Taper PO DIRECTED Warfarin [Coumadin] 1 mg PO DIRECTED Discharge Medication List Acetaminophen [Tylenol] 1,000 mg PO QID PRN 05/21/20 [History] Albuterol Sulfate [Albuterol Sulfate Hfa] 2 puff INHALATION RT-QID PRN 10/19/20 [History] Multivitamins, Thera [Multivitamin (formulary)] 1 tab PO DAILY 03/21/23 [History] Spironolactone [Aldactone] 25 mg PO DAILY 03/21/23 [History] Cefpodoxime Proxetil [Vantin] 200 mg PO DIRECTED 10/03/23 [History] Diltiazem Cd [Cardizem CD] 180 mg PO DIRECTED 10/03/23 [History] Fluticasone/Umeclidin/Vilanter [Trelegy Ellipta 100-62.5-25] 1 puff INHALATION DIRECTED 10/03/23 [History] Ipratropium-Albuterol Nebulize [Duoneb 0.5 mg-3 mg/3 ml Soln] 3 ml INHALATION DIRECTED 10/03/23 [History] Metoprolol Succinate (ER) [Toprol XL] 50 mg PO DIRECTED 10/03/23 [History] Nystatin 100,000 Unit/ml Susp [Mycostatin Oral Susp] 500,000 unit PO DIRECTED 10/03/23 [History] Torsemide [Demadex] 20 mg PO DIRECTED 10/03/23 [History] Warfarin [Coumadin] 1 mg PO DIRECTED 10/03/23 [History] guaiFENesin-DM 600/30MG [Mucinex Dm] 2 tab PO DIRECTED 10/03/23 [History] predniSONE [Deltasone] See Taper PO DIRECTED 10/03/23 [History] Budesonide-Formot 160-4.5 Mcg [Symbicort 160-4.5 Mcg Inhaler] 2 puff INHALATION RT-BID 30 Days #1 each 10/07/23 [Rx] Follow up Appointment(s)/Referral(s): Eugene Todd MD [Primary Care Provider] - 1-2 days John Zapata DO [Doctor of Osteopathic Medicine] - 1 Week [facility] [NON-STAFF] - 1 Week (Agency will call 24-48 hours after discharge to arrange for a visit. ) Discharge Disposition: HOME WITH HOME HEALTH SERVICES
[2023-10-07] MEDS ORDERED: WARFARIN 1 MG TAB PO ONE (18:00)
[2023-10-07] MEDS ORDERED: WARFARIN 5 MG TAB PO ONE (18:00)
== END 2023-10-07 15:30 | disposition home health service (06) | DRG 177 ==
LOC: EC 17:40 → 4SSUR 10-04 00:57 → OBSVTOIN 10-04 14:32
PROVIDERS: ADMIT Internal Medicine; ATTEND Internal Medicine
DX: J15.69 Pneumonia due to other Gram-negative bacteria (principal); E43 Unspecified severe protein-calorie malnutrition; Z68.1 Body mass index [BMI] 19.9 or less, adult; J44.0 Chronic obstructive pulmonary disease with (acute) lower respiratory infection; I50.32 Chronic diastolic (congestive) heart failure; L12.0 Bullous pemphigoid; J96.11 Chronic respiratory failure with hypoxia; R64 Cachexia; D68.9 Coagulation defect, unspecified; J44.1 Chronic obstructive pulmonary disease with (acute) exacerbation; Z79.01 Long term (current) use of anticoagulants; I71.40 Abdominal aortic aneurysm, without rupture, unspecified; I71.20 Thoracic aortic aneurysm, without rupture, unspecified; I27.20 Pulmonary hypertension, unspecified; I11.0 Hypertensive heart disease with heart failure; R63.0 Anorexia; I48.0 Paroxysmal atrial fibrillation; K59.09 Other constipation; R10.12 Left upper quadrant pain; R10.32 Left lower quadrant pain; F17.210 Nicotine dependence, cigarettes, uncomplicated; Z99.81 Dependence on supplemental oxygen; Z79.899 Other long term (current) drug therapy; Z79.51 Long term (current) use of inhaled steroids; Z82.49 Family history of ischemic heart disease and other diseases of the circulatory system; Z87.01 Personal history of pneumonia (recurrent); Z98.42 Cataract extraction status, left eye; Z98.41 Cataract extraction status, right eye; Z87.11 Personal history of peptic ulcer disease; Z87.19 Personal history of other diseases of the digestive system
CPT/HCPCS: 36415; 71046; 74177; 80053; 82150; 83605; 83690; 84145; 84484; 85025; 85610; 85730; 94640; 94760; 96361; 96365; 96366; 96367; 99285

== ENCOUNTER 2023-10-09 07:46 | Inpatient (IN) | payer MEDICARE ==
--- NOTE | 2023-10-09 07:52 | ED ---
General Adult HPI - General Stated complaint: ERIC Time Seen by Provider: 10/09/23 07:48 Source: patient, EMS, RN notes reviewed Mode of arrival: EMS Limitations: no limitations - History of Present Illness Initial comments: Patient is an 87-year-old male present to the emergency department with concerns with difficulty breathing. Onset of symptoms was yesterday. Patient states he was recently in the hospital. Patient has cough with occasional yellow sputum. No fever. Patient does have history of similar symptoms previously associated with COPD. Patient states he did feel little bit confused last night. No calf pain. No leg swelling. - Related Data Home Medications Medication Instructions Recorded Confirmed Acetaminophen [Tylenol] 1,000 mg PO QID PRN 05/21/20 10/09/23 Albuterol Sulfate [Albuterol 2 puff INHALATION RT-QID PRN 10/19/20 10/09/23 Sulfate Hfa] Multivitamins, Thera [Multivitamin 1 tab PO DAILY 03/21/23 10/09/23 (formulary)] Spironolactone [Aldactone] 25 mg PO DAILY 03/21/23 10/09/23 Cefpodoxime Proxetil [Vantin] 200 mg PO BID 10/03/23 10/09/23 Diltiazem Cd [Cardizem CD] 180 mg PO DIRECTED 10/03/23 10/09/23 Ipratropium-Albuterol Nebulize 3 ml INHALATION RT-QID 10/03/23 10/09/23 [Duoneb 0.5 mg-3 mg/3 ml Soln] Metoprolol Succinate (ER) [Toprol 50 mg PO DAILY 10/03/23 10/09/23 XL] Nystatin 100,000 Unit/ml Susp 500,000 unit PO DIRECTED 10/03/23 10/09/23 [Mycostatin Oral Susp] Torsemide [Demadex] 20 mg PO DIRECTED 10/03/23 10/09/23 Warfarin [Coumadin] 1 mg PO W/SUPPER 10/03/23 10/09/23 guaiFENesin-DM 600/30MG [Mucinex 2 tab PO BID 10/03/23 10/09/23 Dm] predniSONE [Deltasone] See Taper PO DIRECTED 10/03/23 10/09/23 Allergies Allergy/AdvReac Type Severity Reaction Status Date / Time No Known Allergies Allergy Verified 10/09/23 08:34 Review of Systems ROS Statement: Those systems with pertinent positive or pertinent negative responses have been documented in the HPI. ROS Other: All systems not noted in ROS Statement are negative. 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 History of Any Multi-Drug Resistant Organisms: None Reported Past Surgical History: Adenoidectomy, Hernia Repair, Tonsillectomy Additional Past Surgical History / Comment(s): ULCER REPAIR- 35 YEARS AGO, cataract bilateral Past Anesthesia/Blood Transfusion Reactions: No Reported Reaction Past Psychological History: No Psychological Hx Reported Smoking Status: Current some day smoker - Past Family History Mother Family Medical History: Cancer Additional Family Medical History / Comment(s): from [place] (stomach) Father Family Medical History: Myocardial Infarction ([place]) Additional Family Medical History / Comment(s): passes away from aneurysm General Exam Limitations: physical limitation General appearance: alert, other (Patient is in mild to moderate respiratory distress. Speaks in 3-4 word sentences) Head exam: Present: normocephalic Eye exam: Present: normal appearance ENT exam: Present: normal exam Neck exam: Present: normal inspection Respiratory exam: Present: respiratory distress, decreased breath sounds Cardiovascular Exam: Present: tachycardia, irregular rhythm GI/Abdominal exam: Present: soft. Absent: tenderness Extremities exam: Present: normal inspection Neurological exam: Present: alert Psychiatric exam: Present: normal affect, normal mood Skin exam: Present: normal color Course Vital Signs 10/09/23 10/09/23 10/09/23 07:50 07:51 07:58 Pulse Rate 112 H 118 H Respiratory 20 Rate Blood Pressure 141/84 O2 Sat by Pulse 84 L Oximetry Fraction of 80 Inspired Oxygen (FIO2) 10/09/23 10/09/23 10/09/23 08:09 08:12 08:52 Pulse Rate 121 H 128 H Respiratory 30 H 22 Rate Blood Pressure 111/69 O2 Sat by Pulse 95 Oximetry Fraction of 60 Inspired Oxygen (FIO2) 10/09/23 10:24 Pulse Rate Respiratory Rate Blood Pressure O2 Sat by Pulse Oximetry Fraction of 60 Inspired Oxygen (FIO2) EKG Findings - EKG Results: EKG: interpreted by ERMD (Left axis. Lateral T wave inversion. LVH criteria.) EKG shows: tachycardia, atrial fibrillation Medical Decision Making - Medical Decision Making Was pt. sent in by a medical professional or institution (, PA, SOFTWARE PROGRAMMER, urgent care, hospital, or [place] health care facility...) When possible be specific @ -No Did you speak to anyone other than the patient for history (EMS, parent, family, police, friend...)? What history was obtained from this source @ -Family arrives later and helps provide additional history including recent visit and onset of some Did you review nursing and triage notes (agree or disagree)? Why? @ -I reviewed and agree with nursing and triage notes Were old charts reviewed (outside hosp., previous admission, EMS record, old EKG, old radiological studies, urgent care reports/EKG's, [place] health care facility records)? Report findings @ -Previous admission reviewed and consult. Previous chest x-ray Differential Diagnosis (chest pain, altered mental status, abdominal pain women, abdominal pain men, vaginal bleeding, weakness, fever, dyspnea, syncope, headache, dizziness, GI bleed, back pain, seizure, CVA, palpatations, mental health, musculoskeletal)? @ -Differential Dyspnea: Coronary syndrome, arrhythmia, tamponade, asthma, COPD, pulmonary embolism, pneu monia, pneumothorax, pulmonary effusion, anaphylaxis, diabetic ketoacidosis, flailed chest, pulmonary contusion, diaphragmatic rupture, anemia, neuromuscular, this is not meant to be an all-inclusive list. EKG interpreted by me (3pts min.). @ -As above X-rays interpreted by me (1pt min.). @ -Chest x-ray shows COPD. Minimal left effusion remains. Right midlung opacity slightly improved CT interpreted by me (1pt min.). @ -None done U/S interpreted by me (1pt. min.). @ -None done What testing was considered but not performed or refused? (CT, X-rays, U/S, labs)? Why? @ -None What meds were considered but not given or refused? Why? @ -None Did you discuss the management of the patient with other professionals (professionals i.e. , PA, SOFTWARE PROGRAMMER, lab, RT, psych nurse, social service liaison, steaming machine operator, teacher, special officer, business case analyst)? Give summary @ -Dr. Todd who will admit his patient with consult with cardiology and pulmonary. Was smoking cessation discussed for >3mins.? @ -No Was critical care preformed (if so, how long)? @ -31 minutes critical care time Were there social determinants of health that impacted care today? How? (Homelessness, low income, unemployed, alcoholism, drug addiction, transportation, low edu. Level, literacy, decrease access to med. care, [facility], rehab)? @ -No Was there de-escalation of care discussed even if they declined (Discuss DNR or withdrawal of care, Hospice)? DNR status @ -No What co-morbidities impacted this encounter? (DM, HTN, Smoking, COPD, CAD, Cancer, CVA, ARF, Chemo, Hep., AIDS, mental health diagnosis, sleep apnea, morbid obesity)? @ -None Was patient admitted / discharged? Hospital course, mention meds given and route, prescriptions, significant lab abnormalities, going to OR and other pertinent info. @ -Patient presents in respiratory distress by EMS. BiPAP applied. Patient does have improvement with this. Patient received steroids and 2 nebulizers by EMS. Third given here. Patient will be admitted with pulmonary consult. There is concern for potential sepsis diagnosed at 10:15 AM. Blood culture lactic acid ordered. IV antibiotics will be ordered. Undiagnosed new problem with uncertain prognosis? @ -No Drug Therapy requiring intensive monitoring for toxicity (Heparin, Nitro, Insulin, Cardizem)? @ -No Were any procedures done? @ -No Diagnosis/symptom? @ -COPD, respiratory failure Acute, or Chronic, or Acute on Chronic? @ -Acute on chronic, acute Uncomplicated (without systemic symptoms) or Complicated (systemic symptoms)? @ -Default Side effects of treatment? @ -No Exacerbation, Progression, or Severe Exacerbation? @ -Exacerbation of COPD Poses a threat to life or bodily function? How? (Chest pain, [place], PA, pneumonia, PE, COPD, DKA, ARF, appy, cholecystitis, CVA, Diverticulitis, Homicidal, Suicidal, threat to staff... and all critical care pts) @ -No - Lab Data Result diagrams: 10/09/23 07:57 10/09/23 07:57 Lab Results 10/09/23 10/09/23 10/09/23 Range/Units 07:57 07:57 07:57 WBC 13.7 H (3.8-10.6) k/uL RBC 4.46 (4.30-5.90) m/uL Hgb 11.3 L (13.0-17.5) gm/dL Hct 36.3 L (39.0-53.0) % MCV 81.4 (80.0-100.0) fL MCH 25.4 (25.0-35.0) pg MCHC 31.2 (31.0-37.0) g/dL RDW 18.2 H (11.5-15.5) % Plt Count 139 L (150-450) k/uL MPV 8.7 Neutrophils % 90 % Lymphocytes % 5 % Monocytes % 4 % Eosinophils % 0 % Basophils % 0 % Neutrophils # 12.4 H (1.3-7.7) k/uL Lymphocytes # 0.7 L (1.0-4.8) k/uL Monocytes # 0.5 (0-1.0) k/uL Eosinophils # 0.0 (0-0.7) k/uL Basophils # 0.0 (0-0.2) k/uL Hypochromasia Moderate Anisocytosis Slight PT 16.6 H (10.0-12.5) sec INR 1.6 H (<1.2) APTT 26.0 (22.0-30.0) sec Sodium 138 (137-145) mmol/L Potassium 3.4 L (3.5-5.1) mmol/L Chloride 93 L (98-107) mmol/L Carbon Dioxide 38 H (22-30) mmol/L Anion Gap 7 mmol/L BUN 38 H (9-20) mg/dL Creatinine 0.67 (0.66-1.25) mg/dL Est GFR (CKD-EPI)AfAm >90 (>60 ml/min/1.73 sqM) Est GFR (CKD-EPI)NonAf 87 (>60 ml/min/1.73 sqM) Glucose 65 L (74-99) mg/dL Calcium 7.8 L (8.4-10.2) mg/dL Magnesium 1.9 (1.6-2.3) mg/dL Total Bilirubin 1.1 (0.2-1.3) mg/dL AST 39 (17-59) U/L ALT 37 (4-49) U/L Alkaline Phosphatase 132 H (38-126) U/L Troponin I (0.000-0.034) ng/mL NT-Pro-B Natriuret Pep 1190 pg/mL Total Protein 5.7 L (6.3-8.2) g/dL Albumin 3.2 L (3.5-5.0) g/dL Influenza Type A (PCR) (Not Detectd) Influenza Type B (PCR) (Not Detectd) RSV (PCR) (Not Detectd) SARS-CoV-2 (PCR) (Not Detectd) 10/09/23 10/09/23 Range/Units 07:57 07:57 WBC (3.8-10.6) k/uL RBC (4.30-5.90) m/uL Hgb (13.0-17.5) gm/dL Hct (39.0-53.0) % MCV (80.0-100.0) fL MCH (25.0-35.0) pg MCHC (31.0-37.0) g/dL RDW (11.5-15.5) % Plt Count (150-450) k/uL MPV Neutrophils % % Lymphocytes % % Monocytes % % Eosinophils % % Basophils % % Neutrophils # (1.3-7.7) k/uL Lymphocytes # (1.0-4.8) k/uL Monocytes # (0-1.0) k/uL Eosinophils # (0-0.7) k/uL Basophils # (0-0.2) k/uL Hypochromasia Anisocytosis PT (10.0-12.5) sec INR (<1.2) APTT (22.0-30.0) sec Sodium (137-145) mmol/L Potassium (3.5-5.1) mmol/L Chloride (98-107) mmol/L Carbon Dioxide (22-30) mmol/L Anion Gap mmol/L BUN (9-20) mg/dL Creatinine (0.66-1.25) mg/dL Est GFR (CKD-EPI)AfAm (>60 ml/min/1.73 sqM) Est GFR (CKD-EPI)NonAf (>60 ml/min/1.73 sqM) Glucose (74-99) mg/dL Calcium (8.4-10.2) mg/dL Magnesium (1.6-2.3) mg/dL Total Bilirubin (0.2-1.3) mg/dL AST (17-59) U/L ALT (4-49) U/L Alkaline Phosphatase (38-126) U/L Troponin I 0.027 (0.000-0.034) ng/mL NT-Pro-B Natriuret Pep pg/mL Total Protein (6.3-8.2) g/dL Albumin (3.5-5.0) g/dL Influenza Type A (PCR) Not Detected (Not Detectd) Influenza Type B (PCR) Not Detected (Not Detectd) RSV (PCR) Not Detected (Not Detectd) SARS-CoV-2 (PCR) Not Detected (Not Detectd) Critical Care Time Critical Care Time: Yes Disposition Clinical Impression: Acute exacerbation of chronic obstructive pulmonary disease, Acute respiratory failure Disposition: ADMITTED IP TO THIS HOSP Condition: Serious Is patient prescribed a controlled substance at d/c from ED?: No Referrals: Eugene Todd MD [Primary Care Provider] - 1-2 days Time of Disposition: 10:19
[2023-10-09] MEDS: IPRATROPIUM-ALBUTEROL 3 ML NEB INHALATION STA (07:58)
--- NOTE | 2023-10-09 08:32 | XR ---
EXAMINATION TYPE: XR chest 1V portable DATE OF EXAM: 10/09/2023 COMPARISON: 10/03/2023 HISTORY: Difficulty breathing TECHNIQUE: Single frontal view of the chest is obtained. FINDINGS: A right perihilar consolidation mass with cavitation. Left lower lobe consolidation with s mall effusion. Surgical clips in the epigastrium. Diffuse emphysematous changes. Degenerative changes spine with chronic compression deformities. IMPRESSION: 1. COPD with stable left lower lobe infiltrate and small effusion. 2. Cavitating lesion in the right perihilar region could be postinfectious or related to neoplasm sta ble in appearance.
[2023-10-09] MEDS: LORazepam 2 MG/ML INJ IV STA (09:03)
[2023-10-09 09:49] LABS: INR 1.6 (<1.2); Prothrombin Time 16.6 sec (10.0-12.5)
[2023-10-09 09:52] LABS: ALT 37 U/L (4-49); AST 39 U/L (17-59); African American GFR (CKD) >90 (>60 ml/min/1.73 sqM); Albumin 3.2 g/dL (3.5-5.0); Alkaline Phosphatase 132 U/L (38-126); Blood Urea Nitrogen 38 mg/dL (9-20); Calcium 7.8 mg/dL (8.4-10.2); Chloride 93 mmol/L (98-107); Glucose 65 mg/dL (74-99); Magnesium 1.9 mg/dL (1.6-2.3); Non-African American GFR(CKD) 87 (>60 ml/min/1.73 sqM); Potassium 3.4 mmol/L (3.5-5.1); Sodium 138 mmol/L (137-145); Total Bilirubin 1.1 mg/dL (0.2-1.3); Total Protein 5.7 g/dL (6.3-8.2)
[2023-10-09 09:58] LABS: Anion Gap 7 mmol/L; Anisocytosis Slight; Basophils % (A) 0 %; Eosinophils % (A) 0 %; HCT 36.3 % (39.0-53.0); HGB 11.3 gm/dL (13.0-17.5); Hypochromasia Moderate; Lymphocytes # (A) 0.7 k/uL (1.0-4.8); Lymphocytes % (A) 5 %; MCH 25.4 pg (25.0-35.0); MCHC 31.2 g/dL (31.0-37.0); MCV 81.4 fL (80.0-100.0); Mean Platelet Volume 8.7; Monocytes # (A) 0.5 k/uL (0-1.0); Monocytes % (A) 4 %; Neutrophils # (A) 12.4 k/uL (1.3-7.7); Neutrophils % (A) 90 %; Platelet Count 139 k/uL (150-450); RBC 4.46 m/uL (4.30-5.90); RDW 18.2 % (11.5-15.5); WBC 13.7 k/uL (3.8-10.6)
[2023-10-09 10:01] LABS: NT-Pro-B-Type Natriuretic Pept 1190 pg/mL
[2023-10-09 10:04] LABS: Carbon Dioxide 38 mmol/L (22-30)
[2023-10-09] MEDS ORDERED: ACETAMINOPHEN TAB 500 MG TAB PO PRN (10:15)
[2023-10-09] MEDS ORDERED: NALOXONE 0.4 MG/ML 1 ML VIAL IVP PRN (10:20)
[2023-10-09] MEDS: METOPROLOL SUCCINATE (ER) 50 MG TAB.ER.24H PO SCH ×2 (10:43→20:47)
[2023-10-09] MEDS: DILTIAZEM CD 180 MG CAP.ER.24H PO SCH (10:43)
[2023-10-09] MEDS: AZITHROMYCIN 500 MG in SODIUM CHLORIDE 0.9% 250 ML IVPB SCH (10:49)
[2023-10-09] MEDS: IPRATROPIUM-ALBUTEROL 3 ML NEB INHALATION SCH (11:27)
[2023-10-09] MEDS: methylPREDNISolone SOD SUCCI 125 MG/2 ML VIAL IV SCH (14:24)
[2023-10-09] MEDS: SODIUM CHLORIDE 0.9% 500 ML 250 ML IV ONE (16:22)
[2023-10-09] MEDS: TORSEMIDE 20 MG TAB PO SCH (16:22)
[2023-10-09] MEDS: FUROSEMIDE 10 MG TAB PO SCH (16:37)
[2023-10-09] MEDS ORDERED: WARFARIN 1 MG TAB PO SCH (17:30)
[2023-10-09] MEDS ORDERED: RX INFO: IV CONTRAST WAS GIVEN 1 EACH MISC MISCELLANE PRN (17:58)
--- NOTE | 2023-10-09 17:58 | P.CNPUL ---
History of Present Illness Consult date: 10/09/23 Reason for consult: COPD History of present illness: I am seeing this patient in the emergency department for worsening shortness of breath. The patient is known to me. The patient has been treated for necrotizing right lung pneumonia and the patient had a prolonged hospitalization back in August 2023. The patient was discharged home to be readmitted on 10/04/2023 for abdominal pain and the patient was discharged home on 10/07/[address] scan of the abdomen that was done during the prior hospitalization showed no evidence of any acute abnormalities. The patient was asked to continue Trelegy Ellipta as maintenance, prednisone burst taper, and completed a course of Vantin on outpatient basis as directed. Following his discharge, the patient continued to have difficulties in breathing. He came back to the emergency department and he stated that he was still coughing yellowish sputum. Noted overall, his cough and congestion has been progressively improving over the past 6 weeks. At the time of my evaluation in the emergency, the patient had no major respiratory distress. He was however found to be in atrial fibrillation with rapid ventricular response. Accordingly, the patient was placed on oral Cardizem 180 mg p.o. daily and metoprolol 50 mg p.o. twice a day and he takes long-term anticoagulation with warfarin. His INR was at 1.6. I also reviewed the chest x-ray that was done in the emergency. There is obvious COPD in the background. There is also a right lung consolidation which has been gradually improving base d on the series of chest x-ray that was done during multiple hospitalizations. There is some residual perihilar consolidation. Note that his most recent CAT scan of the chest that was done on 09/21/2023 showed a dense focal consolidation in the superior segment of the right lower lobe extending to the hilum in addition to his extensive COPD. His blood work from today shows a WBC count 13.7 with a hemoglobin 9.3 and a platelet count of 139. BUN 38 with a creatinine of 0.6 and a sodium levels at 138. Lactic acid level was at 4.1. proBNP level was 1190, LFTs were essentially within normal limits. His most recent sputum analysis from 09/21/2023 was positive for Serratia marcescens. Previous sputum analysis from 03/21/2023 was positive for Pseudomonas aeruginosa. Review of Systems CONSTITUTIONAL: Reports 30 pound weight loss over the last 6 to 9 months. EYES: Denies change in vision. EARS, NOSE, MOUTH, THROAT: Denies headaches, denies sore throat. CARDIOVASCULAR: Denies chest pain, palpitations or syncopal episodes. Endorses increased lower extremity swelling RESPIRATORY: See HPI GASTROINTESTINAL: Denies change in appetite, abdominal pain, nausea and vomiting, or diarrhea GENITOURINARY: Denies hematuria, denies infections. MUSKULOSKELETAL: Denies pain, denies swelling. INTEGUMENTARY: Denies rash, denies eczema. NEUROLOGICAL: Denies recent memory loss, no recent seizure activity. PSYCHIATRIC: Denies anxiety, denies depression. HEMATOLOGIC/LYMPHATIC: Denies anemia, denies enlarged lymph node Past Medical History Past Medical History: Atrial Fibrillation, COPD, Respiratory Disorder Additional Past Medical History / Comment(s): Ascending thoracic aortic aneurysm measuring 4.8 cm in size, advanced COPD wears 4 liters 02 ATC, left lower lobe mass measuring 3.4 x 3.3 cm in size pt states gets full easily when eating and has constipation issues, takes S[facility] MOM, has an appt with Dr Norris Recinos in July. History of Any Multi-Drug Resistant Organisms: None Reported Past Surgical History: Adenoidectomy, Hernia Repair, Tonsillectomy Additional Past Surgical History / Comment(s): ULCER REPAIR- 35 YEARS AGO, cataract bilateral Past Anesthesia/Blood Transfusion Reactions: No Reported Reaction Past Psychological History: No Psychological Hx Reported Smoking Status: Current some day smoker - Past Family History Mother Family Medical History: Cancer Additional Family Medical History / Comment(s): from [place] (stomach) Father Family Medical History: Myocardial Infarction ([place]) Additional Family Medical History / Comment(s): passes away from aneurysm Medications and Allergies Home Medications Medication Instructions Recorded Confirmed Type Acetaminophen [Tylenol] 1,000 mg PO QID PRN 05/21/20 10/09/23 History Albuterol Sulfate [Albuterol 2 puff INHALATION RT-QID PRN 10/19/20 10/09/23 History Sulfate Hfa] Multivitamins, Thera [Multivitamin 1 tab PO DAILY 03/21/23 10/09/23 History (formulary)] Spironolactone [Aldactone] 25 mg PO DAILY 03/21/23 10/09/23 History Cefpodoxime Proxetil [Vantin] 200 mg PO BID 10/03/23 10/09/23 History Diltiazem Cd [Cardizem CD] 180 mg PO DIRECTED 10/03/23 10/09/23 History Ipratropium-Albuterol Nebulize 3 ml INHALATION RT-QID 10/03/23 10/09/23 History [Duoneb 0.5 mg-3 mg/3 ml Soln] Metoprolol Succinate (ER) [Toprol 50 mg PO DAILY 10/03/23 10/09/23 History XL] Nystatin 100,000 Unit/ml Susp 500,000 unit PO DIRECTED 10/03/23 10/09/23 History [Mycostatin Oral Susp] Torsemide [Demadex] 20 mg PO DIRECTED 10/03/23 10/09/23 History Warfarin [Coumadin] 1 mg PO W/SUPPER 10/03/23 10/09/23 History guaiFENesin-DM 600/30MG [Mucinex 2 tab PO BID 10/03/23 10/09/23 History Dm] predniSONE [Deltasone] See Taper PO DIRECTED 10/03/23 10/09/23 History Allergies Allergy/AdvReac Type Severity Reaction Status Date / Time No Known Allergies Allergy Verified 10/09/23 08:34 Physical Exam Vitals: Vital Signs Temp Pulse Resp BP Pulse Ox FiO2 10/09/23 16:30 110 H 20 114/86 92 L 10/09/23 16:00 96 22 108/78 10/09/23 15:36 106 H 24 60 10/09/23 15:30 109 H 29 H 120/87 10/09/23 15:00 32 H 102/60 10/09/23 14:47 99.4 F 10/09/23 14:30 104 H 25 H 100/66 10/09/23 14:00 129 H 18 105/74 94 L 10/09/23 13:30 112 H 20 106/80 95 10/09/23 13:00 124 H 20 108/74 93 L 10/09/23 12:45 106 H 22 108/74 96 10/09/23 12:30 151 H 99/85 10/09/23 12:00 95 18 116/85 92 L 10/09/23 11:36 121 H 18 10/09/23 11:27 131 H 24 10/09/23 11:00 141 H 22 107/95 06/10/24 10:45 152 H 22 93/75 88 L 10/09/23 10:30 131 H 21 93/75 10/09/23 10:24 60 10/09/23 10:22 128 H 31 H 10/09/23 08:52 128 H 22 111/69 95 10/09/23 08:12 60 10/09/23 08:09 121 H 30 H 10/09/23 07:58 118 H 10/09/23 07:51 112 H 20 141/84 84 L 10/09/23 07:50 80 Intake and Output 10/09/23 10/09/23 10/09/23 06:59 14:59 22:59 Other: Weight 52.617 kg GENERAL EXAM: Alert, frail 87-year-old white male, comfortable in no apparent distress. The patient is currently on 4 L of O2 nasal cannula HEAD: Normocephalic and atraumatic EYES: Normal reaction of pupils, equal size. NOSE: Clear with pink turbinates. THROAT: No erythema or exudates. NECK: No masses, no JVD. CHEST: No chest wall deformity. LUNGS: Equal air entry with markedly diminished lung sounds throughout. No crackles, wheezes, rhonchi. No conversational dyspnea or accessory muscle u se.. CVS: S1 and S2 normal with no audible murmur, irregular rhythm. No extra heart sounds ABDOMEN: No hepatosplenomegaly, active bowel sounds, no guarding or rigidity. SPINE: No scoliosis or deformity SKIN: No rashes CENTRAL NERVOUS SYSTEM: No focal deficits, tone is normal in all 4 extremities. EXTREMITIES: There bilateral lower extremity pitting edema. No clubbing, or cyanosis. Peripheral pulses are intact Results - Laboratory Findings CBC and BMP: 10/09/23 07:57 10/09/23 07:57 ABG WBC 13.7 k/uL (3.8-10.6) H 10/09/23 07:57 RBC 4.46 m/uL (4.30-5.90) 10/09/23 07:57 Hgb 11.3 gm/dL (13.0-17.5) L 10/09/23 07:57 Hct 36.3 % (39.0-53.0) L 10/09/23 07:57 MCV 81.4 fL (80.0-100.0) 10/09/23 07:57 MCH 25.4 pg (25.0-35.0) 10/09/23 07:57 MCHC 31.2 g/dL (31.0-37.0) 10/09/23 07:57 RDW 18.2 % (11.5-15.5) H 10/09/23 07:57 Plt Count 139 k/uL (150-450) L 10/09/23 07:57 MPV 8.7 10/09/23 07:57 Neutrophils % 90 % 10/09/23 07:57 Lymphocytes % 5 % 10/09/23 07:57 Monocytes % 4 % 10/09/23 07:57 Eosinophils % 0 % 10/09/23 07:57 Basophils % 0 % 10/09/23 07:57 Neutrophils # 12.4 k/uL (1.3-7.7) H 10/09/23 07:57 Lymphocytes # 0.7 k/uL (1.0-4.8) L 10/09/23 07:57 Monocytes # 0.5 k/uL (0-1.0) 10/09/23 07:57 Eosinophils # 0.0 k/uL (0-0.7) 10/09/23 07:57 Basophils # 0.0 k/uL (0-0.2) 10/09/23 07:57 Hypochromasia Moderate 10/09/23 07:57 Anisocytosis Slight 10/09/23 07:57 PT 16.6 sec (10.0-12.5) H 10/09/23 07:57 INR 1.6 (<1.2) H 10/09/23 07:57 APTT 26.0 sec (22.0-30.0) 10/09/23 07:57 Sodium 138 mmol/L (137-145) 10/09/23 07:57 Potassium 3.4 mmol/L (3.5-5.1) L 10/09/23 07:57 Chloride 93 mmol/L (98-107) L 10/09/23 07:57 Carbon Dioxide 38 mmol/L (22-30) H 10/09/23 07:57 Anion Gap 7 mmol/L 10/09/23 07:57 BUN 38 mg/dL (9-20) H 10/09/23 07:57 Creatinine 0.67 mg/dL (0.66-1.25) 10/09/23 07:57 Est GFR (CKD-EPI)AfAm >90 (>60 ml/min/1.73 sqM) 10/09/23 07:57 Est GFR (CKD-EPI)NonAf 87 (>60 ml/min/1.73 sqM) 10/09/23 07:57 Glucose 65 mg/dL (74-99) L 10/09/23 07:57 Lactic Ac Sepsis Rflx Y 10/09/23 13:25 Plasma Lactic Acid Isacc 4.1 mmol/L (0.7-2.0) H* 10/09/23 15:36 Calcium 7.8 mg/dL (8.4-10.2) L 10/09/23 07:57 Magnesium 1.9 mg/dL (1.6-2.3) 10/09/23 07:57 Total Bilirubin 1.1 mg/dL (0.2-1.3) 10/09/23 07:57 AST 39 U/L (17-59) 10/09/23 07:57 ALT 37 U/L (4-49) 10/09/23 07:57 Alkaline Phosphatase 132 U/L (38-126) H 10/09/23 07:57 Troponin I 0.027 ng/mL (0.000-0.034) 10/09/23 07:57 NT-Pro-B Natriuret Pep 1190 pg/mL 10/09/23 07:57 Total Protein 5.7 g/dL (6.3-8.2) L 10/09/23 07:57 Albumin 3.2 g/dL (3.5-5.0) L 10/09/23 07:57 Influenza Type A (PCR) Not Detected (Not Detectd) 10/09/23 07:57 Influenza Type B (PCR) Not Detected (Not Detectd) 10/09/23 07:57 RSV (PCR) Not Detected (Not Detectd) 10/09/23 07:57 SARS-CoV-2 (PCR) Not Detected (Not Detectd) 10/09/23 07:57 PT/INR, D-dimer PT 16.6 sec (10.0-12.5) H 10/09/23 07:57 INR 1.6 (<1.2) H 10/09/23 07:57 Abnormal lab findings: Abnormal Labs 10/09/23 10/09/23 10/09/23 07:57 07:57 07:57 WBC 13.7 H Hgb 11.3 L Hct 36.3 L RDW 18.2 H Plt Count 139 L Neutrophils # 12.4 H Lymphocytes # 0.7 L PT 16.6 H INR 1.6 H Potassium 3.4 L Chloride 93 L Carbon Dioxide 38 H BUN 38 H Glucose 65 L Plasma Lactic Acid Isacc Calcium 7.8 L Alkaline Phosphatase 132 H Total Protein 5.7 L Albumin 3.2 L 10/09/23 10/09/23 10/09/23 10:07 12:53 15:36 WBC Hgb Hct RDW Plt Count Neutrophils # Lymphocytes # PT INR Potassium Chloride Carbon Dioxide BUN Glucose Plasma Lactic Acid Isacc 2.6 H* 4.9 H* 4.1 H* Calcium Alkaline Phosphatase Total Protein Albumin - Diagnostic Findings Chest x-ray: image reviewed Assessment and Plan Plan: Acute on chronic dyspnea, and hypoxic respiratory failure and the patient is currently on 4 L of oxygen by nasal cannula, no clear progression of his pneumonia based on the most recent chest x-ray. In fact, reviewing the series of chest x-rays going back to March 2023, there has been steady and ongoing improvement. Nevertheless, the patient is chronically debilitated and has chronic dyspnea. His dyspnea is multifactorial. Advanced COPD. He was also in atrial fibrillation with RVR at time of admission which probably contributed to his worsening shortness of breath. Oxygenation remained stable and the patient remains on 4 L of O2 nasal cannula. Right-sided necrotizing pneumonia. I reviewed the series of CAT scans were done and the patient from December 2022, March 2023 and the most recent CAT scan of the chest that was done on 09/21/2023. It seems that the patient developed a cavitating consolidation of the right lower lobe back in March 2023. At that time, the sputum was positive for Pseudomonas aeruginosa. This was treated in the hospital with antibiotics. Subsequent CAT scan of the chest was done and again that showed diffuse emphysematous changes along with scarring and bronchiectasis. The patient has also peribronchial thickening consistent with COPD. There was a patchy area of consolidation/atelectasis in the right lower lobe and some irregular opacities in the left upper lobe and the left lower lobe associated with atelectasis. Patient is currently on IV cefepime. Procalcitonin level is at 0.11. Sputum culture showed Serratia marcescens. Repeat chest x-ray shows stable/ongoing improvement right lung/perihilar consolidation/pneumonia. Unintentional weight loss, reportedly lost 30 pounds over a 6 to 9-month timeframe. History of hemoptysis, recovered History of left lower lung nodule, followed up outpatient Chronic ongoing tobacco dependence, still smokes 2 to 3 cigarettes every couple days. Severe chronic obstructive pulmonary disease, with an FEV1 37% of predicted Chronic hypoxemic respiratory failure, secondary to above, normally maintained on 4 L/min nasal cannula while at home. Acute leukocytosis, stable Atrial fibrillation with rapid ventricular rate, currently on a combination of metoprolol and Cardizem and the patient is also on long-term anticoagulation with warfarin, echocardiogram shows a preserved LV function with mild to moderate mitral regurgitation Supratherapeutic INR, recovered and INR is subtherapeutic at 1.6 History of thoracic aortic aneurysm, stable on repeated CAT scans Bilateral lower extremity edema, stable Plan: Continue oxygen 4 L/min nasal cannula and titrated down to maintain saturation above 90% Continue bronchodilators Continue IV Solu-Medrol Restart IV cefepime Repeat a CAT scan of the chest and compared to the earlier CAT scans Continue Mucinex DM twice a day Echocardiogram for the present LV function from last admission We will monitor PT/INR, adjust warfarin dose as the level is subtherapeutic at this point in time Metoprolol and Cardizem for rate control Dietary supplementation ebilitated and carries a body mass index of 16.2. Overall prognosis poor. Will continue to follow make further recommendations based on the progress.
[2023-10-09] MEDS: WARFARIN 5 MG TAB PO ONE (18:07)
[2023-10-09] MEDS: SODIUM CHLORIDE 0.9% 500 ML 500 ML IV ONE (19:58)
--- NOTE | 2023-10-09 20:30 | CA ---
Transthoracic Echo Report Name: Ge Foster Age: 87 Gender: M : 1935 Exam Date: 10/09/2023 15:49 Exam Location: [place] [facility] Ht (in): 68 Wt (lb): 116 Ordering Physician: Minda Major Attending/Referring Phys: [id number], Moriah Screen Handler Germania Santiago RDCS Procedure CPT: Indications: SOB, LV function Cardiac Hx: Technical Quality: Good Contrast 1: Total Dose (mL): Contrast 2: Total Dose (mL): MEASUREMENTS (Male / Female) Normal Values 2D ECHO LV Diastolic Diameter PLAX 4.0 cm 4.2 - 5.9 / 3.9 - 5.3 cm LV Systolic Diameter PLAX 3.1 cm IVS Diastolic Thickness 1.2 cm 0.6 - 1.0 / 0.6 - 0.9 cm LVPW Diastolic Thickness 1.0 cm 0.6 - 1.0 / 0.6 - 0.9 cm LV Relative Wall Thickness 0.6 RV Internal Dim ED PLAX 2.4 cm LA Systolic Diameter LX 5.0 cm 3.0 - 4.0 / 2.7 - 3.8 cm LV Diastolic Volume MOD BP 53.8 cm??? 67 - 155 / 56 - 104 cm??? LV Systolic Volume MOD BP 13.9 cm??? 22 - 58 / 19 - 49 cm??? LV Ejection Fraction MOD BP 74.2 % >= 55 % LV Diastolic Volume MOD 4C 54.7 cm??? LV Systolic Volume MOD 4C 16.3 cm??? LV Ejection Fraction MOD 4C 70.3 % LV Diastolic Length 4C 8.0 cm LV Systolic Length 4C 6.1 cm LV Diastolic Volume MOD 2C 47.0 cm??? LV Systolic Volume MOD 2C 11.3 cm??? LV Ejection Fraction MOD 2C 75.9 % LV Diastolic Length 2C 7.0 cm LV Systolic Length 2C 5.7 cm LA Volume 82.2 cm??? 18 - 58 / 22 - 52 cm??? LA Volume Index 52.2 cm???/m??? 16 - 28 cm???/m??? Aorta at Sinuses Diameter 4.2 cm M-MODE Aortic Root Diameter MM 3.5 cm LA Systolic Diameter MM 5.1 cm LA Ao Ratio MM 1.4 AV Cusp Separation MM 1.9 cm DOPPLER AI Peak Velocity 412.9 cm/s AI Peak Gradient 68.2 mmHg AI Pressure Half Time 698.6 ms MR Peak Velocity 505.4 cm/s MR Peak Gradient 102.2 mmHg MR Flow Rate PISA 42.3 cm???/s TR Peak Velocity 310.1 cm/s TR Peak Gradient 38.5 mmHg Right Ventricular Systolic Press 52.4 mmHg FINDINGS Left Ventricle Left ventricular ejection fraction is estimated at 65-70 %. Mildly increased septal wall thickness. Normal left ventricular systolic function with no obvious regional wall motion abnormalities. Right Ventricle Normal right ventricular size and function. Moderate to severe pulmonary hypertension. Right Atrium Severe right atrial dilatation. Left Atrium Moderately increased left atrial diameter. Severely increased left atrial volume. Mildly increased left atrial area. Mitral Valve Structurally normal mitral valve. Eegopkgi-[id number] mitral regurgitation. No mitral stenosis. Aortic Valve Trileaflet aortic valve. Moderate aortic regurgitation. No aortic stenosis. Focal thickening of the aortic valve cusps. Tricuspid Valve Structurally normal tricuspid valve. [id number] tricuspid regurgitation. Pulmonic Valve Structurally normal pulmonic valve. Mild pulmonic regurgitation. Pericardium No pericardial or pleural effusion. Aorta Mild aortic dilatation at the level of the sinuses of valsalva (root) 4.2cm CONCLUSIONS Preserved LV systolic function LVH Left atrial enlargement Previewed by: Dr. Jose Sol MD (Electronically Signed) Final Date: 09 October 2023 20:29
[2023-10-09] MEDS: CEFEPIME 2 GM in SODIUM CHLORIDE 0.9% 100 ML IVPB SCH (20:47)
--- NOTE | 2023-10-09 21:15 | CT ---
EXAMINATION TYPE: CT chest w con DATE OF EXAM: 10/09/2023 COMPARISON: 09/21/2023 HISTORY: ERIC, hx COPD. Assess progression right lung pneumonia CT DLP: 251.9 mGycm Automated exposure control for dose reduction was used. TECHNIQUE: CT scan of the chest is performed with IV Contrast, patient injected with 100 ml mL of Isovue 300. M IP Images are created on CT scanner and reviewed. 3D reconstructed images are created on an [employer] workstation and reviewed. FINDINGS: There are marked emphysematous changes. There has been moderate interval reduction in the posterior right upper lobe infiltrate and effusion. There is no change in the scattered partially consolidative opacities and reticular opacities in the left lung base. Comparison dating back to 03/22/2023 reveals no significant interval change in the ap pearance of left lung base and therefore these changes are most likely chronic interstitial scarring and fibrosis.. There is marked mucus plugging in multiple bilateral lower lobe bronchi. There is stable 4.6 mm dilatation of the ascending thoracic aorta. There is a stable 11 mm right hilar lymph node and is stable 15 mm precarinal lymph node. Limited scanning of the upper abdomen reveals 3.6 cm dilatation of the abdominal aorta. There is also mild ascites. No focal osseous lesions are seen. IMPRESSION: 1. Marked emphysematous changes. 2. Reduction in the right upper lobe infiltrate and pleural effusion. 3. Stable left lung infiltrates consistent with chronic interstitial scarring or fibrosis. 4. Marked mucus plugging in the lower lobe bronchi. 5. 4.6 cm dilatation of the ascending thoracic aorta 3.6 cm dilatation of the abdominal aorta. 6. Mild ascites in the upper abdomen
[2023-10-09] MEDS: guaiFENesin-DM 600/30MG 1 EACH TAB.ER.12H PO SCH (21:49)
[2023-10-10] MEDS: SODIUM CHLORIDE 0.9% 1,000 ML IV SCH (00:23)
[2023-10-10] MEDS: IPRATROPIUM-ALBUTEROL 3 ML NEB INHALATION PRN (03:33)
[2023-10-10 06:06] LABS: INR 2.1 (<1.2); Prothrombin Time 21.3 sec (10.0-12.5)
[2023-10-10] MEDS: SPIRONOLACTONE 25 MG TAB PO SCH (08:50)
[2023-10-10] MEDS: MULTIVITAMINS, THERA 1 EACH TAB PO SCH (08:50)
--- NOTE | 2023-10-10 11:07 | P.CRDCN ---
History of Present Illness History of present illness: HISTORY OF PRESENT ILLNESS: This is a 87-year-old male with a past medical history significant for hypertension, paroxysmal atrial fibrillation, aortic aneurysm, congestive heart failure, COPD with home oxygen use, and valvular heart disease. Patient follows in the office with Dr. Cardenas. We have been asked to see the patient in consultation for shortness of breath. Patient examined at the bedside. Patient was just hospitalized from October 04, 2023 until October 07, 2023 secondary to abd ominal pain, constipation, and acute COPD exacerbation. Patient presented back to the hospital with a chief complaint of shortness of breath. Patient continues to report shortness of breath this morning. He denies any chest pain or pressure. Patient was in A-fib with RVR upon admission to the hospital. However his heart rates are now well-controlled. He denies any palpitations. DIAGNOSTICS: - EKG reveals atrial fibrillation with RVR - Chest xray COPD with stable left lower lobe infiltrate and small effusion. Cavitating lesion in the right perihilar region could be postinfectious or rel ated to neoplasm stable in appearance. - Laboratory data: WBC 13.7. Hemoglobin 11.3. Platelet count 139. Sodium 138. Potassium 3.4. BUN 38. Creatinine 0.67. Lactic acid 2.6. Troponin negative x 1. proBNP 1190 - Current home cardiac medications include Cardizem CD 180 mg daily, warfarin 1 mg with dinner, Demadex 20 mg daily, Aldactone 25 mg daily. - Most recent echocardiogram obtained in March 2023 revealed ejection fraction 55 to 60%, mild to moderate mitral regurgitation, and mild aortic regurgitation - Patient underwent Lexiscan stress test in August 2017 which was negative for isch emia REVIEW OF SYSTEMS: At the time of my exam: CONSTITUTIONAL: Denies fever or chills. HEENT: Denies blurred vision, vision changes, or eye pain. Denies hemoptysis CARDIOVASCULAR: Denies chest pain. Denies orthopnea. Denies PND. Denies palpitations RESPIRATORY: Reports shortness of breath. GASTROINTESTINAL: Denies abdominal pain. Denies nausea or vomiting. HEMATOLOGIC: Denies bleeding disorders. GENITOURINARY: Denies any blood in urine. SKIN: Denies pruitis. Denies rash. PHYSICAL EXAM: VITAL SIGNS: Reviewed. GENERAL: Well-developed in no acute distress. HEENT: Head is normocephalic. Pupils are equal, round. Sclerae anicteric. Mucous membranes of the mouth are moist. Neck supple. No JVD or thyromegaly LUNGS: Respirations even and unlabored. Lungs with decreased air exchange. HEART: Irregular rate and rhythm. S1 and S2 heard. ABDOMEN: Soft. Nondistended. Nontender. EXTREMITIES: Normal range of motion. No clubbing or cyanosis. Peripheral pulses intact. No lower extremity edema NEUROLOGIC: Awake and alert. Oriented x 3. ASSESSMENT: Shortness of breath Right-sided necrotizing pneumonia Acute on chronic hypoxic respiratory failure Subtherapeutic INR on admission, resolved Elevated lactic acid History of COPD on home oxygen Paroxysmal atrial fibrillation with RVR, likely becoming persistent Chronic heart failure with preserved EF, 55 to 60% Mild to moderate mitral regurgitation Mild aortic regurgitation Thoracic aortic aneurysm, being followed by Dr. Vanegas Lung nodule, unchanged in size Nicotine dependence, patient smokes 2 to 3 cigarettes/day PLAN: Continue home cardiac medications Continue anticoagulation with Coumadin. Monitor INR. Continue telemetry monitoring Pulmonary following for hypoxia and pneumonia Further recommendations pending patient course Nurse practitioner note has been reviewed by physician. Signing provider agrees with the documented findings, assessment, and plan of care documented by [employer] as a scribe. 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 History of Any Multi-Drug Resistant Organisms: None Reported Past Surgical History: Adenoidectomy, Hernia Repair, Tonsillectomy Additional Past Surgical History / Comment(s): ULCER REPAIR- 35 YEARS AGO, cataract bilateral Past Anesthesia/Blood Transfusion Reactions: No Reported Reaction Past Psychological History: No Psychological Hx Reported Smoking Status: Current some day smoker - Past Family History Mother Family Medical History: Cancer Additional Family Medical History / Comment(s): from [place] (stomach) Father Family Medical History: Myocardial Infarction (VT) Additional Family Medical History / Comment(s): passes away from aneurysm Medications and Allergies Home Medications Medication Instructions Recorded Confirmed Type Acetaminophen [Tylenol] 1,000 mg PO QID PRN 05/21/20 10/09/23 History Albuterol Sulfate [Albuterol 2 puff INHALATION RT-QID PRN 10/19/20 10/09/23 History Sulfate Hfa] Multivitamins, Thera [Multivitamin 1 tab PO DAILY 03/21/23 10/09/23 History (formulary)] Spironolactone [Aldactone] 25 mg PO DAILY 03/21/23 10/09/23 History Cefpodoxime Proxetil [Vantin] 200 mg PO BID 10/03/23 10/09/23 History Diltiazem Cd [Cardizem CD] 180 mg PO DIRECTED 10/03/23 10/09/23 History Ipratropium-Albuterol Nebulize 3 ml INHALATION RT-QID 10/03/23 10/09/23 History [Duoneb 0.5 mg-3 mg/3 ml Soln] Metoprolol Succinate (ER) [Toprol 50 mg PO DAILY 10/03/23 10/09/23 History XL] Nystatin 100,000 Unit/ml Susp 500,000 unit PO DIRECTED 10/03/23 10/09/23 History [Mycostatin Oral Susp] Torsemide [Demadex] 20 mg PO DIRECTED 10/03/23 10/09/23 History Warfarin [Coumadin] 1 mg PO W/SUPPER 10/03/23 10/09/23 History guaiFENesin-DM 600/30MG [Mucinex 2 tab PO BID 10/03/23 10/09/23 History Dm] predniSONE [Deltasone] See Taper PO DIRECTED 10/03/23 10/09/23 History Allergies Allergy/AdvReac Type Severity Reaction Status Date / Time No Known Allergies Allergy Verified 10/09/23 08:34 Physical Exam Vitals: Vital Signs Pulse Resp BP Pulse Ox FiO2 10/09/23 12:45 106 H 22 108/74 96 10/09/23 11:36 121 H 18 10/09/23 11:27 131 H 24 10/09/23 11:00 141 H 22 107/95 10/09/23 10:45 152 H 22 93/75 88 L 10/09/23 10:30 131 H 21 93/75 10/09/23 10:24 60 10/09/23 10:22 128 H 31 H 10/09/23 08:52 128 H 22 111/69 95 10/09/23 08:12 60 10/09/23 08:09 121 H 30 H 10/09/23 07:58 118 H 10/09/23 07:51 112 H 20 141/84 84 L 10/09/23 07:50 80 Intake and Output 10/08/23 10/09/23 10/09/23 22:59 06:59 14:59 Other: Weight 52.617 kg Results 10/09/23 07:57 10/09/23 07:57 Cardiac Enzymes 10/09/23 10/09/23 Range/Units 07:57 07:57 AST 39 (17-59) U/L Troponin I 0.027 (0.000-0.034) ng/mL Coagulation 10/09/23 Range/Units 07:57 PT 16.6 H (10.0-12.5) sec APTT 26.0 (22.0-30.0) sec CBC 10/09/23 Range/Units 07:57 WBC 13.7 H (3.8-10.6) k/uL RBC 4.46 (4.30-5.90) m/uL Hgb 11.3 L (13.0-17.5) gm/dL Hct 36.3 L (39.0-53.0) % Plt Count 139 L (150-450) k/uL Comprehensive Metabolic Panel 10/09/23 Range/Units 07:57 Sodium 138 (137-145) mmol/L Potassium 3.4 L (3.5-5.1) mmol/L Chloride 93 L (98-107) mmol/L Carbon Dioxide 38 H (22-30) mmol/L BUN 38 H (9-20) mg/dL Creatinine 0.67 (0.66-1.25) mg/dL Glucose 65 L (74-99) mg/dL Calcium 7.8 L (8.4-10.2) mg/dL AST 39 (17-59) U/L ALT 37 (4-49) U/L Alkaline Phosphatase 132 H (38-126) U/L Total Protein 5.7 L (6.3-8.2) g/dL Albumin 3.2 L (3.5-5.0) g/dL Current Medications Generic Name Dose Route Start Last Admin Trade Name Freq PRN Reason Stop Dose Admin Acetaminophen 1,000 mg 10/09/23 10:15 Acetaminophen Tab 500 Mg Tab PO QID PRN Pain or Fever > 100.5 Albuterol/Ipratropium 3 ml 10/09/23 12:00 10/09/23 11:27 Ipratropium-Albuterol 3 Ml Neb INHALATION 3 ml RT-QID AGUSTÍN Administration Albuterol/Ipratropium 3 ml 10/09/23 10:20 Ipratropium-Albuterol 3 Ml Neb INHALATION RT-Q2H PRN Shortness Of Breath Or Wheezing Diltiazem HCl 180 mg 10/09/23 10:15 10/09/23 10:43 Diltiazem Cd 180 Mg Cap.Er.24h PO 180 mg DAILY AGUSTÍN Administration Guaifenesin/Dextromethorphan 2 each 10/09/23 21:00 Guaifenesin-Dm 600/30mg 1 Each Tab.Er.12h PO BID AGUSTÍN Azithromycin 500 mg/ Sodium 250 mls @ 250 mls/hr 10/09/23 10:30 10/09/23 10:49 Chloride IVPB 10/11/23 09:59 250 mls/hr DAILY AGUSTÍN Administration Protocol Methylprednisolone Sodium Succinate 60 mg 10/09/23 12:00 Methylprednisolone Sod Succi 125 Mg/2 Ml Vial IV Q6HR AGUSTÍN Metoprolol Succinate 50 mg 10/09/23 10:30 10/09/23 10:43 Metoprolol Succinate (Er) 50 Mg Tab.Er.24h PO 50 mg DAILY AGUSTÍN Administration Miscellaneous Information 0 each 10/09/23 10:20 Warfarin Per Pharmacy MISCELLANE DIRECTED PRN INR Multivitamins 1 each 10/10/23 09:00 Multivitamins, Thera 1 Each Tab PO DAILY AGUSTÍN Naloxone HCl 0.2 mg 10/09/23 10:20 Naloxone 0.4 Mg/Ml 1 Ml Vial IVP Q2M PRN Opioid Reversal Warfarin Sodium 5 mg 10/09/23 18:00 Warfarin 5 Mg Tab PO 10/09/23 18:01 ONCE@1800 ONE Protocol Intake and Output 10/08/23 10/09/23 10/09/23 22:59 06:59 14:59 Other: Weight 52.617 kg Patient Weight 10/10/23 06:59 Weight 52.617 kg 10/09/23 07:57 10/09/23 07:57
--- NOTE | 2023-10-10 12:59 | P.PN ---
Subjective Progress Note Date: 10/10/23 I am seeing this patient in the emergency department for worsening shortness of breath. The patient is known to me. The patient has been treated for necrotizing right lung pneumonia and the patient had a prolonged hospitalization back in August 2023. The patient was discharged home to be readmitted on 10/04/2023 for abdominal pain and the patient was discharged home on 10/07/[address] scan of the abdomen that was done during the prior hospitalization showed no evidence of any acute abnormalities. The patient was asked to continue Trelegy Ellipta as maintenance, prednisone burst taper, and completed a course of Vantin on outpatient basis as directed. Following his discharge, the patient continued to have difficulties in breathing. He came back to the emergency department and he stated that he was still coughing yellowish sputum. Noted overall, his cough and congestion has been progressively improving over the past 6 weeks. At the time of my evaluation in the emergency, the patient had no major respiratory distress. He was however found to be in atrial fibrillation with rapid ventricu lar response. Accordingly, the patient was placed on oral Cardizem 180 mg p.o. daily and metoprolol 50 mg p.o. twice a day and he takes long-term anticoagulation with warfarin. His INR was at 1.6. I also reviewed the chest x-ray that was done in the emergency. There is obvious COPD in the background. There is also a right lung consolidation which has been gradually improving based on the series of chest x-ray that was done during multiple hospitalizations. There is some residual perihilar consolidation. Note that his most recent CAT scan of the chest that was done on 09/21/2023 showed a dense focal consolidation in the superior segment of the right lower lobe extending to the hilum in addition to his extensive COPD. His blood work from today shows a WBC count 13.7 with a hemoglobin 9.3 and a platelet count of 139. BUN 38 with a creatinine of 0.6 and a sodium levels at 138. Lactic acid level was at 4.1. proBNP level was 1190, LFTs were essentially within normal limits. His most recent sputum analysis from 09/21/2023 was positive for Serratia marcescens. Previous sputum analysis from 03/21/2023 was positive for Pseudomonas aeruginosa. On 10/10/2023, patient is being seen for a follow-up. Breathing is still labored. He has very limited pulmonary reserve as the patient has advanced COPD. In regards to the right lung pneumonia, the patient had a follow-up CAT scan of the chest and this was reviewed and compared to the earlier images. As mentioned, the patient has marked emphysematous changes bilaterally and there is reduction in the right lung pulmonary consolidation and effusion. There are some chronic stable infiltrates consistent with interstitial scarring and fibrosis on the left. 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 Cultures are to be sent. Lactic acid level is down to 3.7. Remains in atrial fibrillation. INR today is at 2.1. IV cefepime was restarted. Rest of medications remain unchanged. He remains on O2 at 4 L with a pulse ox of 94%. Objective - Vital Signs Vital signs: Vital Signs Temp 98.0 F 10/10/23 08:49 Pulse 88 10/10/23 09:09 Resp 18 10/10/23 08:49 BP 129/88 10/10/23 08:49 Pulse Ox 98 10/10/23 08:49 FiO2 60 10/09/23 15:36 Intake & Output 10/09/23 10/10/23 10/10/23 18:59 06:59 18:59 Intake Total 240 118 Balance 240 118 Weight 52.617 kg 56 kg Intake: Oral 240 118 Other: Voiding Method Bedside Commode Bedside Commode Bedside Commode Urinal Urinal # Voids 1 1 # Bowel Movements 1 - Exam GENERAL EXAM: Alert, frail 87-year-old white male, comfortable in no apparent distress. The patient is currently on 4 L of O2 nasal cannula HEAD: Normocephalic and atraumatic EYES: Normal reaction of pupils, equal size. NOSE: Clear with pink turbinates. THROAT: No erythema or exudates. NECK: No masses, no JVD. CHEST: No chest wall deformity. LUNGS: Equal air entry with markedly diminished lung sounds throughout. No crackles, wheezes, rhonchi. No conversational dyspnea or accessory muscle use.. CVS: S1 and S2 normal with no audible murmur, irregular rhythm. No extra heart sounds ABDOMEN: No hepatosplenomegaly, active bowel sounds, no guarding or rigidity. SPINE: No scoliosis or deformity SKIN: No rashes CENTRAL NERVOUS SYSTEM: No focal deficits, tone is normal in all 4 extremities. EXTREMITIES: There bilateral lower extremity pitting edema. No clubbing, or cyanosis. Peripheral pulses are intact - Labs CBC & Chem 7: 10/09/23 07:57 10/09/23 07:57 Labs: Abnormal Lab Results - Last 24 Hours (Table) 10/09/23 10/09/23 10/09/23 Range/Units 10:07 12:53 15:36 PT (10.0-12.5) sec INR (<1.2) Plasma Lactic Acid Isacc 2.6 H* 4.9 H* 4.1 H* (0.7-2.0) mmol/L 10/09/23 10/09/23 10/10/23 Range/Units 18:39 21:21 01:24 PT (10.0-12.5) sec INR (<1.2) Plasma Lactic Acid Isacc 8.1 H* 5.1 H* 4.4 H* (0.7-2.0) mmol/L 10/10/23 10/10/23 10/10/23 Range/Units 05:13 05:13 09:03 PT 21.3 H (10.0-12.5) sec INR 2.1 H (<1.2) Plasma Lactic Acid Isacc 3.7 H* 3.7 H* (0.7-2.0) mmol/L Assessment and Plan Plan: Acute on chronic dyspnea, and hypoxic respiratory failure and the patient is currently on 4 L of oxygen by nasal cannula, no clear progression of his pneumonia based on the most recent chest x-ray. In fact, reviewing the series of chest x-rays going back to March 2023, there has been steady and ongoing improvement. Nevertheless, the patient is chronically debilitated and has chronic dyspnea. His dyspnea is multifactorial. Advanced COPD. He was also in atrial fibrillation with RVR at time of admission which probably contributed to his worsening shortness of breath. Oxygenation remained stable and the patient remains on 4 L of O2 nasal cannula. Right-sided necrotizing pneumonia. I reviewed the series of CAT scans were done and the patient from December 2022, March 2023 and the most recent CAT scan of the chest that was done on 09/21/2023. It seems that the patient developed a cavitating consolidation of the right lower lobe back in March 2023. At that time, the sputum was positive for Pseudomonas aeruginosa. This was treated in the hospital with antibiotics. Subsequent CAT scan of the chest was done and again that showed diffuse emphysematous changes along with scarring and bronchiectasis. The patient has also peribronchial thickening consistent with COPD. There was a patchy area of consolidation/atelectasis in the right lower lobe and some irregular opacities in the left upper lobe and the left lower lobe associated with atelectasis. Patient is currently on IV cefepime. Procalcitonin level is at 0.11. Sputum culture showed Serratia marcescens. Repeat chest x-ray shows stable/ongoing improvement right lung/perihilar consolidation/pneumonia. Repeat CAT scan of the chest on 10/09/2023 shows improvement in the right lung consolidation with some limited interstitial scarring in the left lung with some minimal residual changes on the right with advanced background emphysema. The patient is coughing up purulent respiratory secretions. Cultures will be obtained. Currently on IV cefepime. Unintentional weight loss, reportedly lost 30 pounds over a 6 to 9-month timeframe. History of hemoptysis, recovered History of left lower lung nodule, followed up outpatient Chronic ongoing tobacco dependence, still smokes 2 to 3 cigarettes every couple days. Severe chronic obstructive pulmonary disease, with an FEV1 37% of predicted Chronic hypoxemic respiratory failure, secondary to above, normally maintained on 4 L/min nasal cannula while at home. Acute leukocytosis, stable Atrial fibrillation with rapid ventricular rate, currently on a combination of metoprolol and Cardizem and the patient is also on long-term anticoagulation with warfarin, echocardiogram shows a preserved LV function with mild to moderate mitral regurgitation Supratherapeutic INR, recovered and INR is therapeutic at 2.1 History of thoracic aortic aneurysm, stable on repeated CAT scans Bilateral lower extremity edema, stable Plan: Continue oxygen 4 L/min nasal cannula and titrated down to maintain saturation above 90% Continue bronchodilators Continue IV Solu-Medrol Continue IV cefepime pending further sputum Gram stain and culture Repeat a CAT scan of the chest was done on 10/09/2023 and compared to the earlier CAT scan and the findings available with reduction in the right lung consolidation and effusion. Nevertheless, the patient advanced COPD and diffuse emphysematous changes and limited scarring bilaterally. He is very much debilitated and his respiratory reserve is minimal and short of breath with mireles ited amount of activity and even at rest. Will recheck sputum Gram stain and culture will make further antibiotic adjustments if needed. Continue Mucinex DM twice a day Echocardiogram for the present LV function from last admission We will monitor PT/INR, PT/INR is therapeutic for now the patient is on warfarin Metoprolol and Cardizem for rate control Dietary supplementation ebilitated and carries a body mass index of 16.2. Overall prognosis poor. Will continue to follow make further recommendations based on the progress.
[2023-10-10] MEDS: WARFARIN 2 MG TAB PO ONE (17:27)
--- NOTE | 2023-10-10 18:21 | P.HPIM ---
History of Present Illness H&P Date: 10/09/23 Chief Complaint: Metabolic encephalopathy, acute on chronic hypoxemic respir atory failure HISTORY OF PRESENT ILLNESS: This is an 87-year-old male with a previous medical history significant for 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 failure on oxygen at home due to severe COPD with FEV1 of 37% of predicted, chronic atrial fibrillation, thoracic aortic aneurysm, abdominal aortic aneurysm, chronic diastolic heart failure, chronic pulmonary hypertension, patient was recently hospitalized at [facility] back in March 2023 after he was admitted for what appears to be a right lower lobe Pseudomonas pneumonia involving the superior segment of the right lower lobe and it showed like a masslike consolidation back on the CT scan and he was treated and his x- ray showed improvement but never had a bronchoscopy, patient is following regularly with Dr. Zapata as an outpatient. Patient has been feeling ill for the last 4 weeks. Patient was recently admitted for right lower lobe pneumonia, shortness of breath and was complaining of fever chills fatigue tiredness and weight loss. He also had bilateral pleural effusions cardiomegaly and was found to have leukocytosis, coagulopathy with an INR of 9.7. Patient was treated in the hospital he was given IV antibiotic in the form of cefepime, and he was treated with IV Solu-Medrol 60 mg IV push every 6 hours, that was transitioned to oral prednisone as well as oral cefpodoxime that was supposed to be taken on last Monday, however he never did, and the patient ended up coming back to the emergency department at [facility] with increased shortness of breath and increased coughing, he was admitted again with acute exacerbation of COPD/right lower lobe pneumonia, he was started on cefepime, Solu-Medrol, he was switched to prednisone, he was just discharged from the hospital on Monday and he was doing fine up till last night when he became quite confused and deliri ous, and he was extremely short of breath, he was in atrial fibrillation with rapid ventricle response, his heart rate was around 1 25-1 30, he became quite hypoxemic, he was not able to breathe much, his called 911, he was brought to the emergency department at [facility] he was found to be in A-fib with RVR, his x-ray showed improvement of his right lower lobe pneumonia, he was seen in consultation by pulmonary medicine who will be seen in consultation by cardiology, he will be admitted to the hospital for further evaluation and treatment of noticed his son was at the bedside and he told me that the patient did not take his medication when he went back home this time. REVIEW OF SYSTEMS: Constitutional: Negative for fever, negative for chills, no night sweats. Significant weight change. Positive for weakness, fatigue or lethargy. No daytime sleepiness. HEENT: No headache. No blurred vision or double vision, no loss of vision. No loss of Hearing, no ringing in the ears, no dizziness. No nasal drainage or congestion. No epistaxis. No sore throat. Lungs: positive for shortness of breath, positive for cough, yellow and green sputum production. Reports dyspnea with activity. Cardiovascular: No chest pain, positive for lower extremity edema. positive for palpitations. No paroxysmal nocturnal dyspnea. No orthopnea. No lightheadedness or dizziness. No syncopal episodes. Abdominal: Reports abdominal pain. positive for nausea, no vomiting. No diarrhea. No constipation. No bloody or tarry stools reports loss of appetite. Genitourinary: No dysuria, increased frequency, urgency. No urinary retention. Musculoskeletal: No myalgias. positive for muscle weakness, positive for gait dysfunction, no frequent falls. No back pain. No neck pain. Integumentary: No wounds, no lesions. No rash or pruritus. No unusual bruising. No change in hair or nails. Neurologic: No aphasia. No facial droop. No change in mentation. No head injury. No headache. No paralysis. No paresthesia. Psychiatric: No depression. No anxiety. No mood swings. Endocrine: No abnormal blood sugars. No weight change. PAST MEDICAL HISTORY: Chronic hypoxemic respiratory failure due to COPD. Severe pulmonary hypertension. Thoracic aortic aneurysm. Paroxysmal atrial fibrillation Abdominal aortic aneurysm Osteoarthritis Chronic diastolic heart failure Severe COPD with FEV1 of 37% of predicted. PAST SURGICAL HISTORY: Peptic ulcer surgery in 1970 Right inguinal hernia repair 2009 Bilateral cataract surgery 2007 and 2009 Colonoscopy 2015 Skin biopsy for bullous pemphigoid. SOCIAL HISTORY: Patient used to smoke about a pack a day he smoked for many years, and quit more than 20 years ago, he denies any alcohol ingestion, he lives with his he does have a walker from ablation, he does have oxygen at home at 4 L. FAMILY HISTORY: Father at age 70 due to ruptured thoracic aortic aneurysm mother at the age of 75 from cancer of unknown origin patient had a brother who at age of 55 from brain cancer with metastatic disease, patient had one sister who at age 75 from breast cancer patient has 2 sons both healthy, and 2 daughters no major medical problems. PHYSICAL EXAMINATION: General: 87-year-old male laying down in bed in minimal respiratory distress. HEENT: Head is atraumatic, normocephalic, pupils were equal round reactive to light and recommendation, extraocular muscle movement were intact, sclera nonicteric, conjunctivae were pale, mucous membranes of the mouth are somewhat dry. Neck: Supple, no JVP, normal carotid upstroke bilaterally, no lymphadenopathy. Chest: Decreased breath sounds at the bases, few rhonchi, minimal expiratory wheezes, no chest wall tenderness, no intercostal retractions. Heart: First heart sound is normal, second heart sound is normal irregularly irregular there is JULI 2/6 located at the left sternal border Abdomen: Soft, mild tenderness to the left upper quadrant no rebound or guarding, nondistended, positive bowel sounds. Extremities: There is +1 edema no calf tenderness DP +2 bilaterally. Neurologic examination: Patient is awake alert and oriented X 3, cranial nerves II-12 appear grossly intact, muscle power were 4 out of 5 in upper extremities and 3 out of 5 in bilateral lower extremities, deep tendon reflexes normal bilaterally. ASSESSMENT AND PLAN: 1. Acute on chronic hypoxemic respiratory failure due to acute COPD exacerbation with residual right lower lobe pneumonia that appeared better on the chest x-ray at this time with residual left-sided pleural effusion. Continue patient on cefepime 2 g IV piggyback every 12 hours, continue DuoNeb 3 mL nebulization 4 times every day, continue oxygen support, sputum cultures again, blood cultures again, Solu-Medrol 60 mg IV push every 6 hours, pulmonary consultation as well as cardiology consultation, continue patient on metoprolol 50 mg orally twice every day Cardizem CD 180 mg once every day, discontinue diuretics at this time as the patient appears to be dehydrated. Monitor the patient very closely. 2. Metabolic encephalopathy likely due to hypoxemic respiratory failure continue treatment as in the previous paragraph. 3. Atrial fibrillation with rapid ventricular response. Continue patient on metoprolol 50 mg orally twice every day, Cardizem CD 180 mg once every day, patient INR subtherapeutic, patient will be given 5 mg of Coumadin tonight recheck INR tomorrow morning.. 4. Chronic atrial fibrillation. Maintain the patient on metoprolol 50 mg orally twice every day as well as Cardizem CD 180 mg once every day, patient was given 5 mg of Coumadin tonight, pharmacy to dose, patient is very sensitive to Coumadin, will monitor INR in daily basis 5. Lactic acidosis. Status post IV fluid resuscitation, continue monitor lactic acid every 6 hours until normalizes. 6. Thoracic aortic aneurysm. Has been under the care of cardiology CT angiography is up-to-date. Has been stable at 4.5 cm. 7. Abdominal aortic aneurysm. Stable at 3.8 cm. 8. Bullous pemphigoid. Is stable. 9. DVT prophylaxis. Restart the patient back on Coumadin at 5 mg tonight, then we will start him on 1 mg orally once every day. Keep his INR between 2-3. 10. GI prophylaxis. Continue patient on Protonix 40 mg orally once every day. 11. Medical debility. Physical therapy evaluation. 12. Guarded prognosis. 13. Admit to inpatient. Estimated length of stay 2 midnights. 14. Patient is full code. 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 History of Any Multi-Drug Resistant Organisms: None Reported Past Surgical History: Adenoidectomy, Hernia Repair, Tonsillectomy Additional Past Surgical History / Comment(s): ULCER REPAIR- 35 YEARS AGO, cataract bilateral Past Anesthesia/Blood Transfusion Reactions: No Reported Reaction Past Psychological History: No Psychological Hx Reported Smoking Status: Current some day smoker - Past Family History Mother Family Medical History: Cancer Additional Family Medical History / Comment(s): from [place] (stomach) Father Family Medical History: Myocardial Infarction ([place]) Additional Family Medical History / Comment(s): passes away from aneurysm Medications and Allergies Home Medications Medication Instructions Recorded Confirmed Type Acetaminophen [Tylenol] 1,000 mg PO QID PRN 05/21/20 10/09/23 History Albuterol Sulfate [Albuterol 2 puff INHALATION RT-QID PRN 10/19/20 10/09/23 History Sulfate Hfa] Multivitamins, Thera [Multivitamin 1 tab PO DAILY 03/21/23 10/09/23 History (formulary)] Spironolactone [Aldactone] 25 mg PO DAILY 03/21/23 10/09/23 History Cefpodoxime Proxetil [Vantin] 200 mg PO BID 10/03/23 10/09/23 History Diltiazem Cd [Cardizem CD] 180 mg PO DIRECTED 10/03/23 10/09/23 History Ipratropium-Albuterol Nebulize 3 ml INHALATION RT-QID 10/03/23 10/09/23 History [Duoneb 0.5 mg-3 mg/3 ml Soln] Metoprolol Succinate (ER) [Toprol 50 mg PO DAILY 10/03/23 10/09/23 History XL] Nystatin 100,000 Unit/ml Susp 500,000 unit PO DIRECTED 10/03/23 10/09/23 History [Mycostatin Oral Susp] Torsemide [Demadex] 20 mg PO DIRECTED 10/03/23 10/09/23 History Warfarin [Coumadin] 1 mg PO W/SUPPER 10/03/23 10/09/23 History guaiFENesin-DM 600/30MG [Mucinex 2 tab PO BID 10/03/23 10/09/23 History Dm] predniSONE [Deltasone] See Taper PO DIRECTED 10/03/23 10/09/23 History Allergies Allergy/AdvReac Type Severity Reaction Status Date / Time No Known Allergies Allergy Verified 10/09/23 08:34 Physical Exam Vitals: Vital Signs Pulse Resp BP Pulse Ox FiO2 10/09/23 12:45 106 H 22 108/74 96 10/09/23 11:36 121 H 18 10/09/23 11:27 131 H 24 10/09/23 11:00 141 H 22 107/95 10/09/23 10:45 152 H 22 93/75 88 L 10/09/23 10:30 131 H 21 93/75 10/09/23 10:24 60 10/09/23 10:22 128 H 31 H 10/09/23 08:52 128 H 22 111/69 95 10/09/23 08:12 60 10/09/23 08:09 121 H 30 H 10/09/23 07:58 118 H 10/09/23 07:51 112 H 20 141/84 84 L 10/09/23 07:50 80 Intake and Output 10/08/23 10/09/23 10/09/23 22:59 06:59 14:59 Other: Weight 52.617 kg Results CBC & Chem 7: 10/09/23 07:57 10/09/23 07:57 Labs: Abnormal Lab Results - Last 24 Hours (Table) 10/09/23 10/09/23 10/09/23 Range/Units 07:57 07:57 07:57 WBC 13.7 H (3.8-10.6) k/uL Hgb 11.3 L (13.0-17.5) gm/dL Hct 36.3 L (39.0-53.0) % RDW 18.2 H (11.5-15.5) % Plt Count 139 L (150-450) k/uL Neutrophils # 12.4 H (1.3-7.7) k/uL Lymphocytes # 0.7 L (1.0-4.8) k/uL PT 16.6 H (10.0-12.5) sec INR 1.6 H (<1.2) Potassium 3.4 L (3.5-5.1) mmol/L Chloride 93 L (98-107) mmol/L Carbon Dioxide 38 H (22-30) mmol/L BUN 38 H (9-20) mg/dL Glucose 65 L (74-99) mg/dL Plasma Lactic Acid Isacc (0.7-2.0) mmol/L Calcium 7.8 L (8.4-10.2) mg/dL Alkaline Phosphatase 132 H (38-126) U/L Total Protein 5.7 L (6.3-8.2) g/dL Albumin 3.2 L (3.5-5.0) g/dL 10/09/23 Range/Units 10:07 WBC (3.8-10.6) k/uL Hgb (13.0-17.5) gm/dL Hct (39.0-53.0) % RDW (11.5-15.5) % Plt Count (150-450) k/uL Neutrophils # (1.3-7.7) k/uL Lymphocytes # (1.0-4.8) k/uL PT (10.0-12.5) sec INR (<1.2) Potassium (3.5-5.1) mmol/L Chloride (98-107) mmol/L Carbon Dioxide (22-30) mmol/L BUN (9-20) mg/dL Glucose (74-99) mg/dL Plasma Lactic Acid Isacc 2.6 H* (0.7-2.0) mmol/L Calcium (8.4-10.2) mg/dL Alkaline Phosphatase (38-126) U/L Total Protein (6.3-8.2) g/dL Albumin (3.5-5.0) g/dL
--- NOTE | 2023-10-10 18:30 | P.PN ---
Subjective Progress Note Date: 10/10/23 HISTORY OF PRESENT ILLNESS: This is an 87-year-old male with a previous medical history signif icant for 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 failure on oxygen at home due to severe COPD with FEV1 of 37% of predicted, chronic atrial fibrillation, thoracic aortic aneurysm, abdominal aortic aneurysm, chronic diastolic heart failure, chronic pulmonary hypertension, patient was recently hospitalized at [facility] back in March 2023 after he was admitted for what appears to be a right lower lobe Pseudomonas pneumonia involving the superior segment of the right lower lobe and it showed like a masslike consolidation back on the CT scan and he was treated and his x-ray showed improvement but never had a bronchoscopy, patient is following regularly with Dr. Zapata as an outpatient. Patient has been feeling ill for the last 4 weeks. Patient was recently admitted for right lower lobe pneumonia, shortness of breath and was complaining of fever chills fatigue tiredness and weight loss. He also had bilateral pleural effusions cardiomegaly and was found to have leukocytosis, coagulopathy with an INR of 9.7. Patient was treated in the hospital he was given IV antibiotic in the form of cefepime, and he was treated with IV Solu-Medrol 60 mg IV push every 6 hours, that was transitioned to oral prednisone as well as oral cefpodoxime that was supposed to be taken on last Monday, however he never did, and the patient ended up coming back to the emergency department at [facility] with increased shortness of breath and increased coughing, he was admitted again with acute exacerbation of COPD/right lower lobe pneumonia, he was started on cefepime, Solu-Medrol, he was switched to prednisone, he was just discharged from the hospital on Monday and he was doing fine up till last night when he became quite confused and delirious, and he was extremely short of breath, he was in atrial fibrillation with rapid ventricle response, his heart rate was around 1 25-1 30, he became quite hypoxemic, he was not able to breathe much, his called 911, he was brought to the emergency department at [facility] he was found to be in A-fib with RVR, his x-ray showed improvement of his right lower lobe pneumonia, he was seen in consultation by pulmonary medicine who will be seen in consultation by cardiology, he will be admitted to the hospital for further evaluation and treatment of noticed his son was at the bedside and he told me that the patient did not take his medication when he went back home this time. 10/09: Patient is sitting up in bed he appears to be quite short of breath today, he did receive quite a bit of IV fluid yesterday, he currently on 75 cc an hour, I will discontinue his IV fluid, started the patient back on his diuretics in the form of Lasix 20 mg IV push every 12 hours, continue on spironolactone 25 mg orally once every day, monitor the patient input and output and daily weight, we will follow-up with the patient very closely, patient underwent CT scan of the chest that showed evidence of marked emphysema changes, with resolution or complete resolution of the right lower lobe infiltrate with the pleural effusion, there is a scar tissue in the left lung, and a stable thoracic aortic aneurysm and abdominal aortic aneurysm, and minimal ascites in the abdomen, patient does appear to be quite short of breath today, continue with Solu-Medrol 60 mg IV push every 6 hours continue cefepime 2 g IV piggyback every 12 hours, monitor the patient very closely. Patient has been seen in consultation by cardiology, as well as pulmonary medicine. REVIEW OF SYSTEMS: Constitutional: Negative for fever, negative for chills, no night sweats. Significant weight change. Positive for weakness, fatigue or lethargy. No daytime sleepiness. HEENT: No headache. No blurred vision or double vision, no loss of vision. No loss of Hearing, no ringing in the ears, no dizziness. No nasal drainage or congestion. No epistaxis. No sore throat. Lungs: positive for shortness of breath, positive for cough, yellow and green sputum production. Reports dyspnea with activity. Cardiovascular: No chest pain, positive for lower extremity edema. positive for palpitations. No paroxysmal nocturnal dyspnea. positive for orthopnea. No lightheadedness or dizziness. No syncopal episodes. Abdominal: Reports abdominal pain. positive for nausea, no vomiting. No diarrhea. No constipation. No bloody or tarry stools reports loss of appetite. Genitourinary: No dysuria, increased frequency, urgency. No urinary retention. Musculoskeletal: No myalgias. positive for muscle weakness, positive for gait dysfunction, no frequent falls. No back pain. No neck pain. Integumentary: No wounds, no lesions. No rash or pruritus. No unusual bruising. No change in hair or nails. Neurologic: No aphasia. No facial droop. No change in mentation. No head injury. No headache. No paralysis. No paresthesia. Psychiatric: No depression. No anxiety. No mood swings. Endocrine: No abnormal blood sugars. No weight change. PHYSICAL EXAMINATION: General: 87-year-old male laying down in bed in minimal respiratory distress. HEENT: Head is atraumatic, normocephalic, pupils were equal round reactive to light and recommendation, extraocular muscle movement were intact, sclera nonicteric, conjunctivae were pale, mucous membranes of the mouth are somewhat dry. Neck: Supple, no JVP, normal carotid upstroke bilaterally, no lymphadenopathy. Chest: Decreased breath sounds at the bases, few rhonchi, minimal expiratory wheezes, no chest wall tenderness, no intercostal retractions. Heart: First heart sound is normal, second heart sound is normal irregularly irregular there is JULI 2/6 located at the left sternal border Abdomen: Soft, mild tenderness to the left upper quadrant no rebound or guarding, nondistended, positive bowel sounds. Extremities: There is +1 edema no calf tenderness DP +2 bilaterally. Neurologic examination: Patient is awake alert and oriented X 3, cranial nerves II-12 appear grossly intact, muscle power were 4 out of 5 in upper extremities and 3 out of 5 in bilateral lower extremities, deep tendon reflexes normal bilaterally. ASSESSMENT AND PLAN: 1. Acute on chronic hypoxemic respiratory failure due to acute COPD exacerbation with residual right lower lobe pneumonia that appeared better on CT chest at this time with residual left-sided pleural effusion. Continue patient on cefepime 2 g IV piggyback every 12 hours, continue DuoNeb 3 mL nebulization 4 times every day, continue oxygen support, sputum cultures again, blood cultures again, Solu-Medrol 60 mg IV push every 6 hours, pulmonary consultation as well as cardiology consultation, continue patient on metoprolol 50 mg orally twice every day Cardizem CD 180 mg once every day, start the patient back on Lasix 20 mg IV push every 12 hours as well as spironolactone 25 mg once every day. 2. Metabolic encephalopathy likely due to hypoxemic respiratory failure continue treatment as in the previous paragraph. 3. Atrial fibrillation with rapid ventricular response. Continue patient on metoprolol 50 mg orally twice every day, Cardizem CD 180 mg once every day, patient INR subtherapeutic, patient will be given 5 mg of Coumadin tonight recheck INR tomorrow morning.. 4. Chronic atrial fibrillation. Maintain the patient on metoprolol 50 mg orally twice every day as well as Cardizem CD 180 mg once every day, patient was given 5 mg of Coumadin tonight, pharmacy to dose, patient is very sensitive to Coumadin, will monitor INR in daily basis 5. Lactic acidosis. Status post IV fluid resuscitation, continue monitor lactic acid every 6 hours until normalizes. 6. On chronic diastolic heart failure. Continue Lasix 20 mg IV push every 12 hours, continue metoprolol 50 mg orally twice every day, continue Cardizem CD 180 mg once every day monitor the patient input and output and daily weight. Patient underwent echocardiogram that showed preserved LV function, with moderate aortic regurgitation as well as moderate to severe mitral regurgitation, patient may benefit from small dose of Farxiga 5 mg orally once every day. 7. Thoracic aortic aneurysm. Has been under the care of cardiology CT angiog armando is up-to-date. Has been stable at 4.5 cm. 8. Abdominal aortic aneurysm. Stable at 3.8 cm. 9. Bullous pemphigoid. Is stable. 10. DVT prophylaxis. patient did receive 2 mg of coumadin tonight Keep his INR between 2-3. 11. GI prophylaxis. Continue patient on Protonix 40 mg orally once every day. 12. Medical debility. Physical therapy evaluation. 13. Guarded prognosis. Objective - Vital Signs Vital signs: Vital Signs Temp 97.5 F L 10/10/23 11:47 Pulse 71 10/10/23 15:52 Resp 16 10/10/23 15:52 BP 102/64 10/10/23 15:52 Pulse Ox 95 10/10/23 15:52 FiO2 60 10/09/23 15:36 Intake & Output 10/09/23 10/10/23 10/10/23 18:59 06:59 18:59 Intake Total 240 1538 Output Total 300 Balance 240 1238 Weight 52.617 kg 56 kg 56 kg Intake: Intake, IV Titration 100 Amount Cefepime 2 gm In Sodium 100 Chloride 0.9% 100 ml @ 25 mls/hr IVPB Q12HR [facility] Rx #:[id number] Oral 240 1438 Output: Urine 300 Other: Voiding Method Bedside Commode Bedside Commode Bedside Commode Urinal Urinal # Voids 1 1 # Bowel Movements 1 0 - Labs CBC & Chem 7: 10/09/23 07:57 10/09/23 07:57 Labs: Abnormal Lab Results - Last 24 Hours (Table) 10/09/23 10/09/23 10/10/23 Range/Units 18:39 21:21 01:24 PT (10.0-12.5) sec INR (<1.2) Plasma Lactic Acid Isacc 8.1 H* 5.1 H* 4.4 H* (0.7-2.0) mmol/L 10/10/23 10/10/23 10/10/23 Range/Units 05:13 05:13 09:03 PT 21.3 H (10.0-12.5) sec INR 2.1 H (<1.2) Plasma Lactic Acid Isacc 3.7 H* 3.7 H* (0.7-2.0) mmol/L 10/10/23 10/10/23 Range/Units 12:24 17:27 PT (10.0-12.5) sec INR (<1.2) Plasma Lactic Acid Isacc 2.7 H* 2.5 H* (0.7-2.0) mmol/L Microbiology - Last 24 Hours (Table) 10/09/23 08:05 Blood Culture - Preliminary Blood 10/09/23 08:20 Blood Culture - Preliminary Blood
[2023-10-10] MEDS: FUROSEMIDE 10 MG/ML 2 ML VIAL IV SCH (21:41)
[2023-10-11] MEDS: DAPAGLIFLOZIN PROPANEDIOL 5 MG TABLET PO SCH (07:54)
[2023-10-11] MEDS: TAMSULOSIN 0.4 MG CAP.ER.24H PO SCH (08:04)
[2023-10-11 08:05] LABS: Glucose,Whole Blood 147 mg/dL (70-110)
[2023-10-11 08:37] LABS: Anisocytosis Slight; Basophils % (A) 0 %; Eosinophils % (A) 0 %; HCT 33.6 % (39.0-53.0); HGB 10.1 gm/dL (13.0-17.5); Hypochromasia Marked; Lymphocytes # (A) 0.3 k/uL (1.0-4.8); Lymphocytes % (A) 2 %; MCH 24.8 pg (25.0-35.0); MCHC 29.9 g/dL (31.0-37.0); MCV 82.8 fL (80.0-100.0); Mean Platelet Volume 8.5; Monocytes # (A) 0.4 k/uL (0-1.0); Monocytes % (A) 3 %; Neutrophils # (A) 12.7 k/uL (1.3-7.7); Neutrophils % (A) 95 %; Platelet Count 103 k/uL (150-450); RBC 4.06 m/uL (4.30-5.90); RDW 18.5 % (11.5-15.5); WBC 13.4 k/uL (3.8-10.6)
[2023-10-11 09:02] LABS: INR 2.9 (<1.2); Prothrombin Time 28.6 sec (10.0-12.5)
[2023-10-11 09:13] LABS: ALT 34 U/L (4-49); AST 34 U/L (17-59); African American GFR (CKD) >90 (>60 ml/min/1.73 sqM); Alkaline Phosphatase 113 U/L (38-126); Blood Urea Nitrogen 35 mg/dL (9-20); Calcium 8.2 mg/dL (8.4-10.2); Chloride 97 mmol/L (98-107); Glucose 121 mg/dL (74-99); Magnesium 1.8 mg/dL (1.6-2.3); Non-African American GFR(CKD) 84 (>60 ml/min/1.73 sqM); Potassium 3.8 mmol/L (3.5-5.1); Sodium 137 mmol/L (137-145); Total Bilirubin 0.6 mg/dL (0.2-1.3); Total Protein 5.4 g/dL (6.3-8.2)
[2023-10-11 09:20] LABS: Anion Gap 6 mmol/L
[2023-10-11 09:29] LABS: Carbon Dioxide 34 mmol/L (22-30)
--- NOTE | 2023-10-11 13:19 | P.PN ---
Subjective HISTORY OF PRESENT ILLNESS: This is a 87-year-old male with a past medical history significant for hypertension, paroxysmal atrial fibrillation, aortic aneurysm, congestive heart failure, COPD with home oxygen use, and valvular heart disease. Patient follows in the office with Dr. Cardenas. We have been asked to see the patient in consultation for shortness of breath. Patient examined at the bedside. Patient was just hospitalized from October 04, 2023 until October 07, 2023 secondary to abdominal pain, constipation, and acute COPD exacerbation. Patient presented back to the hospital with a chief complaint of shortness of breath. Patient continues to report shortness of breath this morning. He denies any chest pain or pressure. Patient was in A-fib with RVR upon admission to the hospital. However his heart rates are now well-controlled. He denies any palpitations. DIAGNOSTICS: - EKG reveals atrial fibrillation with RVR - Chest xray COPD with stable left lower lobe infiltrate and small effusion. Cavitating lesion in the right perihilar region could be postinfectious or related to neoplasm stable in appearance. - Laboratory data: WBC 13.7. Hemoglobin 11.3. Platelet count 139. Sodium 138. Potassium 3.4. BUN 38. Creatinine 0.67. Lactic acid 2.6. Troponin negative x 1. proBNP 1190 - Current home cardiac medications include Cardizem CD 180 mg daily, warfarin 1 mg with dinner, Demadex 20 mg daily, Aldactone 25 mg daily. - Most recent echocardiogram obtained in March 2023 revealed ejection fraction 55 to 60%, mild to moderate mitral regurgitation, and mild aortic regurgitation - Patient underwent Lexiscan stress test in August 2017 which was negative for ischemia 10/11/2023 Patient examined this morning the bedside. He continues to report shortness of breath. He denies any chest pain or pressure. He remains in atrial fibrillation with controlled ventricular rate. Patient was started on IV Lasix yesterday per primary medicine. He appears euvolemic upon evaluation today. Vital signs are stable. PHYSICAL EXAM: VITAL SIGNS: Reviewed. GENERAL: Well-developed in no acute distress. HEENT: Head is normocephalic. Pupils are equal, round. Sclerae anicteric. Mucous membranes of the mouth are moist. Neck supple. No JVD or thyromegaly LUNGS: Respirations even and unlabored. Lungs with decreased air exchange. HEART: Irregular rate and rhythm. S1 and S2 heard. ABDOMEN: Soft. Nondistended. Nontender. EXTREMITIES: Normal range of motion. No clubbing or cyanosis. Peripheral pulses intact. No lower extremity edema NEUROLOGIC: Awake and alert. Oriented x 3. ASSESSMENT: Shortness of breath Right-sided necrotizing pneumonia Acute on chronic hypoxic respiratory failure Subtherapeutic INR on admission, resolved Elevated lactic acid History of COPD on home oxygen Paroxysmal atrial fibrillation with RVR, likely becoming persistent Chronic heart failure with preserved EF, 55 to 60% Mild to moderate mitral regurgitation Mild aortic regurgitation Thoracic aortic aneurysm, being followed by Dr. Vanegas Lung nodule, unchanged in size Nicotine dependence, patient smokes 2 to 3 cigarettes/day PLAN: Continue home cardiac medications Continue anticoagulation with Coumadin. Monitor INR. Discontinue IV Lasix as patient is not in overt heart failure. Resume home diuretics of Demadex 20 mg daily No further inpatient recommendations from a cardiac standpoint Will sign off. Please reconsult if needed. Nurse practitioner note has been reviewed by physician. Signing provider agrees with the documented findings, assessment, and plan of care documented by REHABILITATION PROGRAM MANAGER as a scribe. Objective - Vital Signs Vital signs: Vital Signs Temp 97.4 F L 10/11/23 07:42 Pulse 80 10/11/23 12:18 Resp 18 10/11/23 12:18 BP 101/63 10/11/23 12:18 Pulse Ox 95 10/11/23 12:18 FiO2 60 10/09/23 15:36 Intake & Output 10/10/23 10/11/23 10/11/23 18:59 06:59 18:59 Intake Total 1778 358 Output Total 300 1325 300 Balance 1478 -1325 58 Weight 56 kg 53.4 kg Intake: Intake, IV Titration 100 Amount Cefepime 2 gm In Sodium 100 Chloride 0.9% 100 ml @ 25 mls/hr IVPB Q12HR [facility] Rx #:[id number] Oral 1678 358 Output: Urine 300 1325 300 Other: Voiding Method Bedside Commode Bedside Commode Bedside Commode Urinal Urinal Urinal # Voids 1 1 # Bowel Movements 0 1 1 - Labs CBC & Chem 7: 10/11/23 07:35 10/11/23 07:35 Labs: Abnormal Lab Results - Last 24 Hours (Table) 10/10/23 10/11/23 10/11/23 Range/Units 17:27 07:35 07:35 WBC 13.4 H (3.8-10.6) k/uL RBC 4.06 L (4.30-5.90) m/uL Hgb 10.1 L (13.0-17.5) gm/dL Hct 33.6 L (39.0-53.0) % MCH 24.8 L (25.0-35.0) pg MCHC 29.9 L (31.0-37.0) g/dL RDW 18.5 H (11.5-15.5) % Plt Count 103 L (150-450) k/uL Neutrophils # 12.7 H (1.3-7.7) k/uL Lymphocytes # 0.3 L (1.0-4.8) k/uL PT 28.6 H (10.0-12.5) sec INR 2.9 H (<1.2) Chloride (98-107) mmol/L Carbon Dioxide (22-30) mmol/L BUN (9-20) mg/dL Glucose (74-99) mg/dL POC Glucose (mg/dL) (70-110) mg/dL Plasma Lactic Acid Isacc 2.5 H* (0.7-2.0) mmol/L Calcium (8.4-10.2) mg/dL Total Protein (6.3-8.2) g/dL Albumin (3.5-5.0) g/dL 10/11/23 10/11/23 Range/Units 07:35 07:48 WBC (3.8-10.6) k/uL RBC (4.30-5.90) m/uL Hgb (13.0-17.5) gm/dL Hct (39.0-53.0) % MCH (25.0-35.0) pg MCHC (31.0-37.0) g/dL RDW (11.5-15.5) % Plt Count (150-450) k/uL Neutrophils # (1.3-7.7) k/uL Lymphocytes # (1.0-4.8) k/uL PT (10.0-12.5) sec INR (<1.2) Chloride 97 L (98-107) mmol/L Carbon Dioxide 34 H (22-30) mmol/L BUN 35 H (9-20) mg/dL Glucose 121 H (74-99) mg/dL POC Glucose (mg/dL) 147 H (70-110) mg/dL Plasma Lactic Acid Isacc (0.7-2.0) mmol/L Calcium 8.2 L (8.4-10.2) mg/dL Total Protein 5.4 L (6.3-8.2) g/dL Albumin 3.0 L (3.5-5.0) g/dL Microbiology - Last 24 Hours (Table) 10/09/23 08:05 Blood Culture - Preliminary Blood 10/09/23 08:20 Blood Culture - Preliminary Blood
--- NOTE | 2023-10-11 13:33 | CDI ---
Documentation Clarification Form Date: 10/11/2023 01:22:42 PM From: Kira Manuel RN CCDS Phone: [phone] Admit Date: 10/09/2023 10:21:00 AM Patient Name: Ge Foster Visit Number: [id number] Discharge Date: ATTENTION: The Clinical Documentation Specialists (CDI) and [facility] Coding Staff appreciate your assistance in clarifying documentation. Please respond to the clarification below the line at the bottom and electronically sign. The CDI & [facility] Coding staff will review the response and follow-up if needed. Please note: Queries are made part of the Legal Health Record. If you have any questions, please contact the author of this message via ITS. Dr. Eugene Vargas Upper back pressure ulcer stage 2 is documented by Wound Care 10/08, Pressure Injury Assessment. Based on this information and the findings below, is there an additional diagnosis that is clinically appropriate for this patient? History/Risk Factors: 89-year old male presents to the ED with confusion and extremely short of breath. Medical History: Severe pulmonary HTN, chronic hypoxic respiratory failure, COPD and chronic diastolic chf. 10/08, Clinical Indicators: Location: Upper Back Wound description: Pressure Injury present on admission Stage II Treatment: Offload, optifoam with border, Nutritional assessment, Ensure compact TID Is there an additional diagnosis that is clinically appropriate for this patient? [ X] Upper back Pressure Ulcer Stage 2 [ ] Other condition, please specify [ ] Unable to determine Clinical Definitions: Stage 1 Pressure Ulcer: intact skin, non-blanching redness of local area Stage 2 Pressure Ulcer: Partial thickness, loss of dermis, pink wound bed Stage 3 Pressure Ulcer: Full thickness tissue loss Stage 4 Pressure Ulcer: Full thickness tissue loss with exposed bone, tendon, or muscle. Unstageable pressure ulcer: Full thickness tissue loss in which the base of the ulcer is covered by slough (yellow, belle, medina, green or brown) and/or eschar (belle, brown or black) in the wound bed. (Template Last Revised: June 2020) MTDD
--- NOTE | 2023-10-11 13:52 | CDI ---
Documentation Clarification Form Date: 10/11/2023 01:36 PM From: Kira Manuel Phone: [phone] Admit Date: 10/09/2023 10:21:00 AM Patient Name: Ge Foster Visit Number: [id number] Discharge Date: ATTENTION: The Clinical Documentation Specialists (CDI) and [facility] Coding Staff appreciate your assistance in clarifying documentation. Please respond to the clarification below the line at the bottom and electronically sign. The CDI & [facility] Coding staff will review the response and follow-up if needed. Please note: Queries are made part of the Legal Health Record. If you have any questions, please contact the author of this message via ITS. Dr. Eugene Todd The Registered Dietitian assessment on [insert date] indicates this patient has increased nutrient needs. Based on this information and the findings below, is there an additional diagnosis that is clinically appropriate for this patient? History/Risk Factors: 89-year old male presents to the ED with confusion and extremely short of breath. Medical History: Severe pulmonary HTN, chronic hypoxic respiratory failure, Severe COPD and chronic diastolic chf. 10/08, HP Clinical Indicators: RD Consult, 10/09 Current BMI: 18.0kg Hgt 5ft 8in Estimated needs in Kcals: Energy formula 30-35 Kcals/Kg. Estimated Energy needs 1680 1960 Kcal. Estimated needs in Protein: Estimated Protein range 1.2-1.5grams/kg. Estimated protein needs 67-84 grams / day. Estimated Fluid Needs: 1ml/Kcal. Estimated Fluid needs 1680-1960mls/day Nutritional Intake diagnosis: Increased nutrient needs: protein, calories, zinc and vit c. Related to Increased metabolic demand for wound healing. Evidenced by Stage 2 pressure injury. Treatment: Monitor po intake, Monitor supplement intake Supplements: Ensure compact TID Is there an additional diagnosis that is clinically appropriate for this patient? [X ] Severe Protein-Calorie Malnutrition [ ] Other condition, please specify [ ] Unable to Determine Reference: Using the ASPEN Guidelines, Undernutrition (Malnutrition) is characterized by at least two of the following six findings. The severity can be determined based on the criteria listed below. Malnutrition Characteristics for Moderate and Severe Malnutrition Type of Malnutrition Acute Illness or Injury Chronic Illness Degree of Malnutrition Non-severe (moderate) Malnutrition Severe Malnutrition Non-severe (moderate) Malnutrition Severe Malnutrition Energy Intake <75% for >7 days = 50% for = 5 days <75% for = 1 month =75% for = 1 month Weight Loss 1-2% in one week, 5% in 1 month, 7.5% in 3 months 2% in one week, >5% in 1 month, >7.5% in 3 months 5% in one month, 7.5% in 3 months, 10% in 6 months, 20% in 1 year >5% in one month, >7.5% in 3 months, >10% in 6 months, >20% in 1 year Body Fat Wasting Mild Moderate Mild Severe Muscle Wasting Mild Moderate Mild Severe Presence of Edema Mild Moderate to Severe Mild Severe Junior Art Director Strength Not applicable Measurably Reduced Not applicable Measurably Reduced Source: Troy MasonV, Marko P, Jose Elias G, et al. Consensus statement: Academy of Nutrition and Dietetics and [place] Society for Parenteral and Enteral Nutrition: characteristics recommended for the identification and documentation of adult malnutrition (undernutrition).MECHELLE Mason Parenter Enteral Nutr. 2012;36(3):275-283. (Template Last Revised: October 2022) MTDD
--- NOTE | 2023-10-11 14:08 | P.PN ---
Subjective Progress Note Date: 10/11/23 HISTORY OF PRESENT ILLNESS: This is an 87-year-old male with a previous medical history signif icant for 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 failure on oxygen at home due to severe COPD with FEV1 of 37% of predicted, chronic atrial fibrillation, thoracic aortic aneurysm, abdominal aortic aneurysm, chronic diastolic heart failure, chronic pulmonary hypertension, patient was recently hospitalized at [facility] back in March 2023 after he was admitted for what appears to be a right lower lobe Pseudomonas pneumonia involving the superior segment of the right lower lobe and it showed like a masslike consolidation back on the CT scan and he was treated and his x-ray showed improvement but never had a bronchoscopy, patient is following regularly with Dr. Zapata as an outpatient. Patient has been feeling ill for the last 4 weeks. Patient was recently admitted for right lower lobe pneumonia, shortness of breath and was complaining of fever chills fatigue tiredness and weight loss. He also had bilateral pleural effusions cardiomegaly and was found to have leukocytosis, coagulopathy with an INR of 9.7. Patient was treated in the hospital he was given IV antibiotic in the form of cefepime, and he was treated with IV Solu-Medrol 60 mg IV push every 6 hours, that was transitioned to oral prednisone as well as oral cefpodoxime that was supposed to be taken on last Monday, however he never did, and the patient ended up coming back to the emergency department at [facility] with increased shortness of breath and increased coughing, he was admitted again with acute exacerbation of COPD/right lower lobe pneumonia, he was started on cefepime, Solu-Medrol, he was switched to prednisone, he was just discharged from the hospital on Monday and he was doing fine up till last night when he became quite confused and delirious, and he was extremely short of breath, he was in atrial fibrillation with rapid ventricle response, his heart rate was around 1 25-1 30, he became quite hypoxemic, he was not able to breathe much, his called 911, he was brought to the emergency department at [facility] he was found to be in A-fib with RVR, his x-ray showed improvement of his right lower lobe pneumonia, he was seen in consultation by pulmonary medicine who will be seen in consultation by cardiology, he will be admitted to the hospital for further evaluation and treatment of noticed his son was at the bedside and he told me that the patient did not take his medication when he went back home this time. 10/09: Patient is sitting up in bed he appears to be quite short of breath today, he did receive quite a bit of IV fluid yesterday, he currently on 75 cc an hour, I will discontinue his IV fluid, started the patient back on his diuretics in the form of Lasix 20 mg IV push every 12 hours, continue on spironolactone 25 mg orally once every day, monitor the patient input and output and daily weight, we will follow-up with the patient very closely, patient underwent CT scan of the chest that showed evidence of marked emphysema changes, with resolution or complete resolution of the right lower lobe infiltrate with the pleural effusion, there is a scar tissue in the left lung, and a stable thoracic aortic aneurysm and abdominal aortic aneurysm, and minimal ascites in the abdomen, patient does appear to be quite short of breath today, continue with Solu-Medrol 60 mg IV push every 6 hours continue cefepime 2 g IV piggyback every 12 hours, monitor the patient very closely. Patient has been seen in consultation by cardiology, as well as pulmonary medicine. 10/10: Patient is sitting at the edge of the bed he continues to be extremely short of breath, he continues to have cough minimal phlegm production, he was able to give a sputum specimen today, continues the patient on cefepime 2 g IV piggyback every 12 hours, he was started yesterday on IV Lasix 20 mg switch again by cardiology to oral Lasix 20 mg once every day along with the spironolactone 25 mg once every day, he was started on Farxiga 5 mg orally once every day continue to be on metoprolol and Cardizem, he has been followed by pulmonary medicine as well as by cardiology, will continue with the same Solu- Medrol at this time as the patient appears to be extremely short of breath, he appears to be medically debilitated, and he may need to go for the subacute rehabilitation when the time, for disposition he is not ready to get out of the hospital at this point. REVIEW OF SYSTEMS: Constitutional: Negative for fever, negative for chills, no night sweats. Significant weight change. Positive for weakness, fatigue or lethargy. No daytime sleepiness. HEENT: No headache. No blurred vision or double vision, no loss of vision. No loss of Hearing, no ringing in the ears, no dizziness. No nasal drainage or congestion. No epistaxis. No sore throat. Lungs: positive for shortness of breath, positive for cough, yellow and green sputum production. Reports dyspnea with activity. Cardiovascular: No chest pain, positive for lower extremity edema. positive for palpitations. No paroxysmal nocturnal dyspnea. positive for orthopnea. No lightheadedness or dizziness. No syncopal episodes. Abdominal: Reports abdominal pain. positive for nausea, no vomiting. No diarrhea. No constipation. No bloody or tarry stools reports loss of appetite. Genitourinary: No dysuria, increased frequency, urgency. No urinary retention. Musculoskeletal: No myalgias. positive for muscle weakness, positive for gait dysfunction, no frequent falls. No back pain. No neck pain. Integumentary: No wounds, no lesions. No rash or pruritus. No unusual bruis ing. No change in hair or nails. Neurologic: No aphasia. No facial droop. No change in mentation. No head injury. No headache. No paralysis. No paresthesia. Psychiatric: No depression. No anxiety. No mood swings. Endocrine: No abnormal blood sugars. No weight change. PHYSICAL EXAMINATION: General: 87-year-old male laying down in bed in minimal respiratory distress. HEENT: Head is atraumatic, normocephalic, pupils were equal round reactive to light and recommendation, extraocular muscle movement were intact, sclera nonicteric, conjunctivae were pale, mucous membranes of the mouth are somewhat dry. Neck: Supple, no JVP, normal carotid upstroke bilaterally, no lymphadenopathy. Chest: Decreased breath sounds at the bases, few rhonchi, minimal expiratory wheezes, no chest wall tenderness, no intercostal retractions. Heart: First heart sound is normal, second heart sound is normal irregularly irregular there is JULI 2/6 located at the left sternal border Abdomen: Soft, mild tenderness to the left upper quadrant no rebound or guarding, nondistended, positive bowel sounds. Extremities: There is +1 edema no calf tenderness DP +2 bilaterally. Neurologic examination: Patient is awake alert and oriented X 3, cranial nerves II-12 appear grossly intact, muscle power were 4 out of 5 in upper extremities and 3 out of 5 in bilateral lower extremities, deep tendon reflexes normal bilaterally. ASSESSMENT AND PLAN: 1. Acute on chronic hypoxemic respiratory failure due to acute COPD exacerbation with residual right lower lobe pneumonia that appeared better on CT chest at this time with residual left-sided pleural effusion. Continue patient on cefepime 2 g IV piggyback every 12 hours, continue DuoNeb 3 mL nebulization 4 times every day, continue oxygen support, sputum cultures again, blood cultures again, Solu-Medrol 60 mg IV push every 6 hours, pulmonary consultation as well as cardiology consultation, continue patient on metoprolol 50 mg orally twice every day Cardizem CD 180 mg once every day, start the patient back on Lasix 20 mg IV push every 12 hours as well as spironolactone 25 mg once every day. 2. Metabolic encephalopathy likely due to hypoxemic respiratory failure continue treatment as in the previous paragraph. 3. Atrial fibrillation with rapid ventricular response. Continue patient on metoprolol 50 mg orally twice every day, Cardizem CD 180 mg once every day, patient INR subtherapeutic, patient will be given 5 mg of Coumadin tonight recheck INR tomorrow morning.. 4. Chronic atrial fibrillation. Maintain the patient on metoprolol 50 mg orally twice every day as well as Cardizem CD 180 mg once every day, continue Coumadin 2 mg tonight, repeat INR tomorrow morning today INR is one 2.9 5. Lactic acidosis. Resolved his lactic acid is back to normal. 6. Acute on on chronic diastolic heart failure. Continue Lasix 20 mg orally once every day, continue metoprolol 50 mg orally twice every day, continue Cardizem CD 180 mg once every day monitor the patient input and output and daily weight. Patient underwent echocardiogram that showed preserved LV function, with moderate aortic regurgitation as well as moderate to severe mitral regurgitation, continue Farxiga 5 mg once every day monitor input and output and daily weight. 7. Thoracic aortic aneurysm. Has been under the care of cardiology CT angiography is up-to-date. Has been stable at 4.5 cm. 8. Abdominal aortic aneurysm. Stable at 3.8 cm. 9. Bullous pemphigoid. Is stable. 10. DVT prophylaxis. patient did receive 2 mg of coumadin tonight Keep his INR between 2-3. 11. GI prophylaxis. Continue patient on Protonix 40 mg orally once every day. 12. Medical debility. Physical therapy evaluation. 13. Guarded prognosis. Objective - Vital Signs Vital signs: Vital Signs Temp 97.4 F L 10/11/23 07:42 Pulse 80 10/11/23 12:18 Resp 18 10/11/23 12:18 BP 101/63 10/11/23 12:18 Pulse Ox 95 10/11/23 12:18 FiO2 60 10/09/23 15:36 Intake & Output 10/10/23 10/11/23 10/11/23 18:59 06:59 18:59 Intake Total 1778 358 Output Total 300 1325 300 Balance 1478 -1325 58 Weight 56 kg 53.4 kg Intake: Intake, IV Titration 100 Amount Cefepime 2 gm In Sodium 100 Chloride 0.9% 100 ml @ 25 mls/hr IVPB Q12HR [facility] Rx #:[id number] Oral 1678 358 Output: Urine 300 1325 300 Other: Voiding Method Bedside Commode Bedside Commode Bedside Commode Urinal Urinal Urinal # Voids 1 1 # Bowel Movements 0 1 1 - Labs CBC & Chem 7: 10/11/23 07:35 10/11/23 07:35 Labs: Abnormal Lab Results - Last 24 Hours (Table) 10/10/23 10/11/23 10/11/23 Range/Units 17:27 07:35 07:35 WBC 13.4 H (3.8-10.6) k/uL RBC 4.06 L (4.30-5.90) m/uL Hgb 10.1 L (13.0-17.5) gm/dL Hct 33.6 L (39.0-53.0) % MCH 24.8 L (25.0-35.0) pg MCHC 29.9 L (31.0-37.0) g/dL RDW 18.5 H (11.5-15.5) % Plt Count 103 L (150-450) k/uL Neutrophils # 12.7 H (1.3-7.7) k/uL Lymphocytes # 0.3 L (1.0-4.8) k/uL PT 28.6 H (10.0-12.5) sec INR 2.9 H (<1.2) Chloride (98-107) mmol/L Carbon Dioxide (22-30) mmol/L BUN (9-20) mg/dL Glucose (74-99) mg/dL POC Glucose (mg/dL) (70-110) mg/dL Plasma Lactic Acid Isacc 2.5 H* (0.7-2.0) mmol/L Calcium (8.4-10.2) mg/dL Total Protein (6.3-8.2) g/dL Albumin (3.5-5.0) g/dL 10/11/23 10/11/23 Range/Units 07:35 07:48 WBC (3.8-10.6) k/uL RBC (4.30-5.90) m/uL Hgb (13.0-17.5) gm/dL Hct (39.0-53.0) % MCH (25.0-35.0) pg MCHC (31.0-37.0) g/dL RDW (11.5-15.5) % Plt Count (150-450) k/uL Neutrophils # (1.3-7.7) k/uL Lymphocytes # (1.0-4.8) k/uL PT (10.0-12.5) sec INR (<1.2) Chloride 97 L (98-107) mmol/L Carbon Dioxide 34 H (22-30) mmol/L BUN 35 H (9-20) mg/dL Glucose 121 H (74-99) mg/dL POC Glucose (mg/dL) 147 H (70-110) mg/dL Plasma Lactic Acid Isacc (0.7-2.0) mmol/L Calcium 8.2 L (8.4-10.2) mg/dL Total Protein 5.4 L (6.3-8.2) g/dL Albumin 3.0 L (3.5-5.0) g/dL Microbiology - Last 24 Hours (Table) 10/09/23 08:05 Blood Culture - Preliminary Blood 10/09/23 08:20 Blood Culture - Preliminary Blood
--- NOTE | 2023-10-11 14:44 | P.PN ---
Subjective Progress Note Date: 10/11/23 I am seeing this patient in the emergency department for worsening shortness of breath. The patient is known to me. The patient has been treated for necrotizing right lung pneumonia and the patient had a prolonged hospitalization back in August 2023. The patient was discharged home to be readmitted on 10/04/2023 for abdominal pain and the patient was discharged home on 10/07/[address] scan of the abdomen that was done during the prior hospitalization showed no evidence of any acute abnormalities. The patient was asked to continue Trelegy Ellipta as maintenance, prednisone burst taper, and completed a course of Vantin on outpatient basis as directed. Following his discharge, the patient continued to have difficulties in breathing. He came back to the emergency department and he stated that he was still coughing yellowish sputum. Noted overall, his cough and congestion has been progressively improving over the past 6 weeks. At the time of my evaluation in the emergency, the patient had no major respiratory distress. He was however found to be in atrial fibrillation with rapid ventricu lar response. Accordingly, the patient was placed on oral Cardizem 180 mg p.o. daily and metoprolol 50 mg p.o. twice a day and he takes long-term anticoagulation with warfarin. His INR was at 1.6. I also reviewed the chest x-ray that was done in the emergency. There is obvious COPD in the background. There is also a right lung consolidation which has been gradually improving based on the series of chest x-ray that was done during multiple hospitalizations. There is some residual perihilar consolidation. Note that his most recent CAT scan of the chest that was done on 09/21/2023 showed a dense focal consolidation in the superior segment of the right lower lobe extending to the hilum in addition to his extensive COPD. His blood work from today shows a WBC count 13.7 with a hemoglobin 9.3 and a platelet count of 139. BUN 38 with a creatinine of 0.6 and a sodium levels at 138. Lactic acid level was at 4.1. proBNP level was 1190, LFTs were essentially within normal limits. His most recent sputum analysis from 09/21/2023 was positive for Serratia marcescens. Previous sputum analysis from 03/21/2023 was positive for Pseudomonas aeruginosa. On 10/10/2023, patient is being seen for a follow-up. Breathing is still labored. He has very limited pulmonary reserve as the patient has advanced COPD. In regards to the right lung pneumonia, the patient had a follow-up CAT scan of the chest and this was reviewed and compared to the earlier images. As mentioned, the patient has marked emphysematous changes bilaterally and there is reduction in the right lung pulmonary consolidation and effusion. There are some chronic stable infiltrates consistent with interstitial scarring and fibrosis on the left. 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 Cultures are to be sent. Lactic acid level is down to 3.7. Remains in atrial fibrillation. INR today is at 2.1. IV cefepime was restarted. Rest of medications remain unchanged. He remains on O2 at 4 L with a pulse ox of 94%. On 10/11/2023, I am seeing the patient for a follow-up. Remains on 40 Suboxone by nasal cannula. No new complaints otherwise for now. Remains on IV cefepime. PT/INR is therapeutic. Awaiting follow-up sputum Gram stain and culture. Sodium is at 137, BUN is at 35 with a creatinine of 0.7 and potassium is at 3.8. The white cell count 13.4 with a hemoglobin of 10.1. No other significant events overnight. The patient remains on IV Solu-Medrol 60 mg every 6 hours and the patient is on DuoNeb updrafts. Remains on torsemide 20 mg p.o. daily. The patient is on oxygen 4 L/min nasal cannula. No altered mentation. He continues to be in atrial fibrillation and the patient is maintained on a combination of metoprolol 50 mg twice a day, Cardizem CD 80 mg p.o. daily anticoagulation with warfarin with an INR of 2.9. Objective - Vital Signs Vital signs: Vital Signs Temp 97.4 F L 10/11/23 07:42 Pulse 90 10/11/23 08:48 Resp 16 10/11/23 07:42 BP 142/86 10/11/23 07:42 Pulse Ox 90 L 10/11/23 08:36 FiO2 60 10/09/23 15:36 Intake & Output 10/10/23 10/11/23 10/11/23 18:59 06:59 18:59 Intake Total 1778 358 Output Total 300 1325 300 Balance 1478 -1325 58 Weight 56 kg 53.4 kg Intake: Intake, IV Titration 100 Amount Cefepime 2 gm In Sodium 100 Chloride 0.9% 100 ml @ 25 mls/hr IVPB Q12HR [facility] Rx #:[id number] Oral [id number] Output: Urine 300 1325 300 Other: Voiding Method Bedside Commode Bedside Commode Bedside Commode Urinal Urinal Urinal # Voids 1 1 # Bowel Movements 0 1 1 - Exam GENERAL EXAM: Alert, frail 87-year-old white male, comfortable in no apparent distress. The patient is currently on 4 L of O2 nasal cannula HEAD: Normocephalic and atraumatic EYES: Normal reaction of pupils, equal size. NOSE: Clear with pink turbinates. THROAT: No erythema or exudates. NECK: No masses, no JVD. CHEST: No chest wall deformity. LUNGS: Equal air entry with markedly diminished lung sounds throughout. No crackles, wheezes, rhonchi. No conversational dyspnea or accessory muscle use.. CVS: S1 and S2 normal with no audible murmur, irregular rhythm. No extra heart sounds ABDOMEN: No hepatosplenomegaly, active bowel sounds, no guarding or rigidity. SPINE: No scoliosis or deformity SKIN: No rashes CENTRAL NERVOUS SYSTEM: No focal deficits, tone is normal in all 4 extremities. EXTREMITIES: There bilateral lower extremity pitting edema. No clubbing, or cyanosis. Peripheral pulses are intact - Labs CBC & Chem 7: 10/11/23 07:35 10/11/23 07:35 Labs: Abnormal Lab Results - Last 24 Hours (Table) 10/10/23 10/10/23 10/11/23 Range/Units 12:24 17:27 07:35 WBC (3.8-10.6) k/uL RBC (4.30-5.90) m/uL Hgb (13.0-17.5) gm/dL Hct (39.0-53.0) % MCH (25.0-35.0) pg MCHC (31.0-37.0) g/dL RDW (11.5-15.5) % Plt Count (150-450) k/uL Neutrophils # (1.3-7.7) k/uL Lymphocytes # (1.0-4.8) k/uL PT 28.6 H (10.0-12.5) sec INR 2.9 H (<1.2) Chloride (98-107) mmol/L Carbon Dioxide (22-30) mmol/L BUN (9-20) mg/dL Glucose (74-99) mg/dL POC Glucose (mg/dL) (70-110) mg/dL Plasma Lactic Acid Isacc 2.7 H* 2.5 H* (0.7-2.0) mmol/L Calcium (8.4-10.2) mg/dL Total Protein (6.3-8.2) g/dL Albumin (3.5-5.0) g/dL 10/11/23 10/11/23 10/11/23 Range/Units 07:35 07:35 07:48 WBC 13.4 H (3.8-10.6) k/uL RBC 4.06 L (4.30-5.90) m/uL Hgb 10.1 L (13.0-17.5) gm/dL Hct 33.6 L (39.0-53.0) % MCH 24.8 L (25.0-35.0) pg MCHC 29.9 L (31.0-37.0) g/dL RDW 18.5 H (11.5-15.5) % Plt Count 103 L (150-450) k/uL Neutrophils # 12.7 H (1.3-7.7) k/uL Lymphocytes # 0.3 L (1.0-4.8) k/uL PT (10.0-12.5) sec INR (<1.2) Chloride 97 L (98-107) mmol/L Carbon Dioxide 34 H (22-30) mmol/L BUN 35 H (9-20) mg/dL Glucose 121 H (74-99) mg/dL POC Glucose (mg/dL) 147 H (70-110) mg/dL Plasma Lactic Acid Isacc (0.7-2.0) mmol/L Calcium 8.2 L (8.4-10.2) mg/dL Total Protein 5.4 L (6.3-8.2) g/dL Albumin 3.0 L (3.5-5.0) g/dL Microbiology - Last 24 Hours (Table) 10/09/23 08:05 Blood Culture - Preliminary Blood 10/09/23 08:20 Blood Culture - Preliminary Blood Assessment and Plan Plan: Acute on chronic dyspnea, and hypoxic respiratory failure and the patient is currently on 4 L of oxygen by nasal cannula, no clear progression of his pneumonia based on the most recent chest x-ray. In fact, reviewing the series of chest x-rays going back to March 2023, there has been steady and ongoing improvement. Nevertheless, the patient is chronically debilitated and has chronic dyspnea. His dyspnea is multifactorial. Advanced COPD. He was also in atrial fibrillation with RVR at time of admission which probably contributed to his worsening shortness of breath. Oxygenation remained stable and the patient remains on 4 L of O2 nasal cannula. Right-sided necrotizing pneumonia. I reviewed the series of CAT scans were done and the patient from December 2022, March 2023 and the most recent CAT scan of the chest that was done on 09/21/2023. It seems that the patient developed a cavitating consolidation of the right lower lobe back in March 2023. At that time, the sputum was positive for Pseudomonas aeruginosa. This was treated in the hospital with antibiotics. Subsequent CAT scan of the chest was done and again that showed diffuse emphysematous changes along with scarring and bronchiectasis. The patient has also peribronchial thickening consistent with COPD. There was a patchy area of consolidation/atelectasis in the right lower lobe and some irregular opacities in the left upper lobe and the left lower lobe associated with atelectasis. Patient is currently on IV cefepime. Procalcitonin level is at 0.11. Sputum culture showed Serratia marcescens. Repeat chest x-ray shows stable/ongoing improvement right lung/perihilar consolidation/pneumonia. Repeat CAT scan of the chest on 10/09/2023 shows improvement in the right lung consolidation with some limited interstitial scarring in the left lung with some minimal residual changes on the right with advanced background emphysema. The patient is coughing up purulent respiratory secretions. Cultures will be obtained. Currently on IV cefepime. Unintentional weight loss, reportedly lost 30 pounds over a 6 to 9-month timeframe. History of hemoptysis, recovered History of left lower lung nodule, followed up outpatient Chronic ongoing tobacco dependence, still smokes 2 to 3 cigarettes every couple days. Severe chronic obstructive pulmonary disease, with an FEV1 37% of predicted Chronic hypoxemic respiratory failure, secondary to above, normally maintained on 4 L/min nasal cannula while at home. Acute leukocytosis, stable Atrial fibrillation with rapid ventricular rate, currently on a combination of metoprolol and Cardizem and the patient is also on long-term anticoagulation with warfarin, echocardiogram shows a preserved LV function with mild to moderate mitral regurgitation Supratherapeutic INR, recovered and INR is therapeutic at 2.9 History of thoracic aortic aneurysm, stable on repeated CAT scans Bilateral lower extremity edema, stable Plan: Continue oxygen 4 L/min nasal cannula and titrated down to maintain saturation above 90% No major change in his overall condition over the past 24 hours Awaiting repeat sputum Gram stain and culture Continue bronchodilators Continue IV Solu-Medrol Continue IV cefepime pending further sputum Gram stain and culture Repeat a CAT scan of the chest was done on 10/09/2023 and compared to the earlier CAT scan and the findings available with reduction in the right lung consolidation and effusion. Nevertheless, the patient advanced COPD and diffuse emphysematous changes and limited scarring bilaterally. He is very much d ebilitated and his respiratory reserve is minimal and short of breath with limited amount of activity and even at rest. Will recheck sputum Gram stain and culture will make further antibiotic adjustments if needed. Continue Mucinex DM twice a day Echocardiogram for the present LV function from last admission We will monitor PT/INR, PT/INR is therapeutic for now the patient is on warfarin Metoprolol and Cardizem for rate control Dietary supplementation ebilitated and carries a body mass index of 16.2. Overall prognosis poor. Will continue to follow make further recommendations based on the progress.
[2023-10-11] MEDS: WARFARIN 0.5 MG TAB PO ONE (17:38)
[2023-10-11 20:53] LABS: Glucose,Whole Blood 211 mg/dL (70-110)
[2023-10-12 05:37] LABS: Glucose,Whole Blood 218 mg/dL (70-110)
[2023-10-12] MEDS: TORSEMIDE 20 MG TAB PO SCH (08:10)
[2023-10-12 11:20] LABS: INR 2.6 (<1.2)
[2023-10-12 11:30] LABS: ALT 37 U/L (4-49); AST 33 U/L (17-59); African American GFR (CKD) >90 (>60 ml/min/1.73 sqM); Albumin 3.2 g/dL (3.5-5.0); Alkaline Phosphatase 111 U/L (38-126); Anion Gap 2 mmol/L; Blood Urea Nitrogen 38 mg/dL (9-20); Calcium 8.1 mg/dL (8.4-10.2); Carbon Dioxide 38 mmol/L (22-30); Chloride 97 mmol/L (98-107); Glucose 145 mg/dL (74-99); Non-African American GFR(CKD) 85 (>60 ml/min/1.73 sqM); Potassium 3.5 mmol/L (3.5-5.1); Sodium 137 mmol/L (137-145); Total Bilirubin 0.7 mg/dL (0.2-1.3); Total Protein 5.8 g/dL (6.3-8.2)
[2023-10-12 11:38] LABS: Glucose,Whole Blood 129 mg/dL (70-110)
[2023-10-12 11:41] LABS: Anisocytosis Slight; Basophils % (A) 0 %; Eosinophils % (A) 0 %; HCT 36.2 % (39.0-53.0); HGB 10.7 gm/dL (13.0-17.5); Hypochromasia Marked; Lymphocytes # (A) 0.2 k/uL (1.0-4.8); Lymphocytes % (A) 2 %; MCH 24.9 pg (25.0-35.0); MCHC 29.7 g/dL (31.0-37.0); MCV 83.9 fL (80.0-100.0); Mean Platelet Volume 9.4; Monocytes # (A) 0.3 k/uL (0-1.0); Monocytes % (A) 3 %; Neutrophils # (A) 10.4 k/uL (1.3-7.7); Neutrophils % (A) 95 %; Platelet Count 126 k/uL (150-450); RBC 4.32 m/uL (4.30-5.90); RDW 18.6 % (11.5-15.5); WBC 10.9 k/uL (3.8-10.6)
[2023-10-12 13:38] VITALS: BMI 17.9
[2023-10-12 17:00] LABS: Glucose,Whole Blood 191 mg/dL (70-110)
[2023-10-12] MEDS: WARFARIN 2 MG TAB PO ONE (17:34)
--- NOTE | 2023-10-12 18:10 | P.PN ---
Subjective Progress Note Date: 10/12/23 HISTORY OF PRESENT ILLNESS: This is an 87-year-old male with a previous medical history signif icant for 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 failure on oxygen at home due to severe COPD with FEV1 of 37% of predicted, chronic atrial fibrillation, thoracic aortic aneurysm, abdominal aortic aneurysm, chronic diastolic heart failure, chronic pulmonary hypertension, patient was recently hospitalized at [facility] back in March 2023 after he was admitted for what appears to be a right lower lobe Pseudomonas pneumonia involving the superior segment of the right lower lobe and it showed like a masslike consolidation back on the CT scan and he was treated and his x-ray showed improvement but never had a bronchoscopy, patient is following regularly with Dr. Zapata as an outpatient. Patient has been feeling ill for the last 4 weeks. Patient was recently admitted for right lower lobe pneumonia, shortness of breath and was complaining of fever chills fatigue tiredness and weight loss. He also had bilateral pleural effusions cardiomegaly and was found to have leukocytosis, coagulopathy with an INR of 9.7. Patient was treated in the hospital he was given IV antibiotic in the form of cefepime, and he was treated with IV Solu-Medrol 60 mg IV push every 6 hours, that was transitioned to oral prednisone as well as oral cefpodoxime that was supposed to be taken on last Monday, however he never did, and the patient ended up coming back to the emergency department at [facility] with increased shortness of breath and increased coughing, he was admitted again with acute exacerbation of COPD/right lower lobe pneumonia, he was started on cefepime, Solu-Medrol, he was switched to prednisone, he was just discharged from the hospital on Monday and he was doing fine up till last night when he became quite confused and delirious, and he was extremely short of breath, he was in atrial fibrillation with rapid ventricle response, his heart rate was around 1 25-1 30, he became quite hypoxemic, he was not able to breathe much, his called 911, he was brought to the emergency department at [facility] he was found to be in A-fib with RVR, his x-ray showed improvement of his right lower lobe pneumonia, he was seen in consultation by pulmonary medicine who will be seen in consultation by cardiology, he will be admitted to the hospital for further evaluation and treatment of noticed his son was at the bedside and he told me that the patient did not take his medication when he went back home this time. 10/09: Patient is sitting up in bed he appears to be quite short of breath today, he did receive quite a bit of IV fluid yesterday, he currently on 75 cc an hour, I will discontinue his IV fluid, started the patient back on his diuretics in the form of Lasix 20 mg IV push every 12 hours, continue on spironolactone 25 mg orally once every day, monitor the patient input and output and daily weight, we will follow-up with the patient very closely, patient underwent CT scan of the chest that showed evidence of marked emphysema changes, with resolution or complete resolution of the right lower lobe infiltrate with the pleural effusion, there is a scar tissue in the left lung, and a stable thoracic aortic aneurysm and abdominal aortic aneurysm, and minimal ascites in the abdomen, patient does appear to be quite short of breath today, continue with Solu-Medrol 60 mg IV push every 6 hours continue cefepime 2 g IV piggyback every 12 hours, monitor the patient very closely. Patient has been seen in consultation by cardiology, as well as pulmonary medicine. 10/10: Patient is sitting at the edge of the bed he continues to be extremely short of breath, he continues to have cough minimal phlegm production, he was able to give a sputum specimen today, continues the patient on cefepime 2 g IV piggyback every 12 hours, he was started yesterday on IV Lasix 20 mg switch again by cardiology to oral Lasix 20 mg once every day along with the spironolactone 25 mg once every day, he was started on Farxiga 5 mg orally once every day continue to be on metoprolol and Cardizem, he has been followed by pulmonary medicine as well as by cardiology, will continue with the same Solu- Medrol at this time as the patient appears to be extremely short of breath, he appears to be medically debilitated, and he may need to go for the subacute rehabilitation when the time, for disposition he is not ready to get out of the hospital at this point. 10/11: Patient is sitting in recliner chair, he appears to be extremely short of breath, he continues to be on 4 L nasal cannula, he is very dyspneic with minimal activity including talking, he has been getting Lasix 20 mg once every day as well as Farxiga along with spironolactone, his heart rate is a bit better, he is to be maintained on Solu-Medrol 60 mg IV push every 6 hours for an other 24 hours, hopefully will try to cut down the next 24 hours, may need to use the BiPAP at night, pulmonary is following, continue IV antibiotic at this time, patient appears to be quite cachectic with severe protein calorie malnutrition added protein shakes twice every day, patient will likely require subacute rehabilitation even though he refuses that. REVIEW OF SYSTEMS: Constitutional: Negative for fever, negative for chills, no night sweats. Significant weight change. Positive for weakness, fatigue or lethargy. No daytime sleepiness. HEENT: No headache. No blurred vision or double vision, no loss of vision. No loss of Hearing, no ringing in the ears, no dizziness. No nasal drainage or congestion. No epistaxis. No sore throat. Lungs: positive for shortness of breath, positive for cough, yellow and green sputum production. Reports dyspnea with activity. Cardiovascular: No chest pain, positive for lower extremity edema. positive for palpitations. No paroxysmal nocturnal dyspnea. positive for orthopnea. No lightheadedness or dizziness. No syncopal episodes. Abdominal: Reports abdominal pain. positive for nausea, no vomiting. No diarrhea. No constipation. No bloody or tarry stools reports loss of appetite. Genitourinary: No dysuria, increased frequency, urgency. No urinary retention. Musculoskeletal: No myalgias. positive for muscle weakness, positive for gait dysfunction, no frequent falls. No back pain. No neck pain. Integumentary: No wounds, no lesions. No rash or pruritus. No unusual bruising. No change in hair or nails. Neurologic: No aphasia. No facial droop. No change in mentation. No head injury. No headache. No paralysis. No paresthesia. Psychiatric: No depression. No anxiety. No mood swings. Endocrine: No abnormal blood sugars. No weight change. PHYSICAL EXAMINATION: General: 87-year-old male laying down in bed in minimal respiratory distress. HEENT: Head is atraumatic, normocephalic, pupils were equal round reactive to light and recommendation, extraocular muscle movement were intact, sclera nonicteric, conjunctivae were pale, mucous membranes of the mouth are somewhat dry. Neck: Supple, no JVP, normal carotid upstroke bilaterally, no lymphadenopathy. Chest: Decreased breath sounds at the bases, few rhonchi, minimal expiratory wheezes, no chest wall tenderness, no intercostal retractions. Heart: First heart sound is normal, second heart sound is normal irregularly irregular there is JULI 2/6 located at the left sternal border Abdomen: Soft, mild tenderness to the left upper quadrant no rebound or guarding, nondistended, positive bowel sounds. Extremities: There is +1 edema no calf tenderness DP +2 bilaterally. Neurologic examination: Patient is awake alert and oriented X 3, cranial nerves II-12 appear grossly intact, muscle power were 4 out of 5 in upper extremities and 3 out of 5 in bilateral lower extremities, deep tendon reflexes normal bilaterally. ASSESSMENT AND PLAN: 1. Acute on chronic hypoxemic respiratory failure due to acute COPD exacerbation with residual right lower lobe pneumonia that appeared better on CT chest at this time with residual left-sided pleural effusion. Continue patient on cefepime 2 g IV piggyback every 12 hours, continue DuoNeb 3 mL nebulization 4 times every day, continue oxygen support, sputum cultures again, blood cultures again, Solu-Medrol 60 mg IV push every 6 hours, continue patient on metoprolol 50 mg orally twice every day Cardizem CD 180 mg once every day, continue Lasix 20 mg orally once every day, spironolactone 25 mg orally once every day monitor input and output and daily weight. 2. Metabolic encephalopathy likely due to hypoxemic respiratory failure continue treatment as in the previous paragraph. 3. Atrial fibrillation with rapid ventricular response. Continue patient on metoprolol 50 mg orally twice every day, Cardizem CD 180 mg once every day, patient INR subtherapeutic, patient will be given 5 mg of Coumadin tonight recheck INR tomorrow morning.. 4. Chronic atrial fibrillation. Maintain the patient on metoprolol 50 mg orally twice every day as well as Cardizem CD 180 mg once every day, continue Coumadin 2 mg tonight, repeat INR tomorrow morning today INR is one 2.9 5. Lactic acidosis. Resolved his lactic acid is back to normal. 6. Acute on on chronic diastolic heart failure. Continue Lasix 20 mg orally once every day, continue metoprolol 50 mg orally twice every day, continue Cardizem CD 180 mg once every day monitor the patient input and output and daily weight. Patient underwent echocardiogram that showed preserved LV function, with moderate aortic regurgitation as well as moderate to severe mitral regurgitation, continue Farxiga 5 mg once every day monitor input and output and daily weight. 7. Thoracic aortic aneurysm. Has been under the care of cardiology CT angiography is up-to-date. Has been stable at 4.5 cm. 8. Abdominal aortic aneurysm. Stable at 3.8 cm. 9. Bullous pemphigoid. Is stable. 10. DVT prophylaxis. patient did receive 2 mg of coumadin tonight Keep his INR between 2-3. 11. GI prophylaxis. Continue patient on Protonix 40 mg orally once every day. 12. Medical debility. Physical therapy evaluation. 13. Severe protein calorie malnutrition present on admission. Continue with Ensure twice every day, increase protein intake, monitor the patient's symptoms very closely. Physical therapy evaluation. 14. Overall prognosis is very guarded. Objective - Vital Signs Vital signs: Vital Signs Temp 97.8 F 10/12/23 16:31 Pulse 64 10/12/23 16:31 Resp 20 10/12/23 16:31 BP 122/76 10/12/23 16:31 Pulse Ox 98 10/12/23 16:31 FiO2 60 10/09/23 15:36 Intake & Output 10/11/23 10/12/23 10/12/23 18:59 06:59 18:59 Intake Total 358 480 474 Output Total 501 500 752 Balance -143 -20 -278 Weight 53.4 kg Intake: Oral 358 480 474 Output: Urine 500 500 750 Stool 1 2 Other: Voiding Method Bedside Commode Bedside Commode Bedside Commode Urinal Urinal Urinal # Voids 1 1 # Bowel Movements 1 1 - Labs CBC & Chem 7: 10/12/23 10:03 10/12/23 10:03 Labs: Abnormal Lab Results - Last 24 Hours (Table) 10/11/23 10/12/23 10/12/23 Range/Units 20:50 05:36 10:03 WBC (3.8-10.6) k/uL Hgb (13.0-17.5) gm/dL Hct (39.0-53.0) % MCH (25.0-35.0) pg MCHC (31.0-37.0) g/dL RDW (11.5-15.5) % Plt Count (150-450) k/uL Neutrophils # (1.3-7.7) k/uL Lymphocytes # (1.0-4.8) k/uL PT 26.0 H (10.0-12.5) sec INR 2.6 H (<1.2) Chloride (98-107) mmol/L Carbon Dioxide (22-30) mmol/L BUN (9-20) mg/dL Glucose (74-99) mg/dL POC Glucose (mg/dL) 211 H 218 H (70-110) mg/dL Calcium (8.4-10.2) mg/dL Total Protein (6.3-8.2) g/dL Albumin (3.5-5.0) g/dL 10/12/23 10/12/23 10/12/23 Range/Units 10:03 10:03 11:36 WBC 10.9 H (3.8-10.6) k/uL Hgb 10.7 L (13.0-17.5) gm/dL Hct 36.2 L (39.0-53.0) % MCH 24.9 L (25.0-35.0) pg MCHC 29.7 L (31.0-37.0) g/dL RDW 18.6 H (11.5-15.5) % Plt Count 126 L (150-450) k/uL Neutrophils # 10.4 H (1.3-7.7) k/uL Lymphocytes # 0.2 L (1.0-4.8) k/uL PT (10.0-12.5) sec INR (<1.2) Chloride 97 L (98-107) mmol/L Carbon Dioxide 38 H (22-30) mmol/L BUN 38 H (9-20) mg/dL Glucose 145 H (74-99) mg/dL POC Glucose (mg/dL) 129 H (70-110) mg/dL Calcium 8.1 L (8.4-10.2) mg/dL Total Protein 5.8 L (6.3-8.2) g/dL Albumin 3.2 L (3.5-5.0) g/dL 10/12/23 Range/Units 16:54 WBC (3.8-10.6) k/uL Hgb (13.0-17.5) gm/dL Hct (39.0-53.0) % MCH (25.0-35.0) pg MCHC (31.0-37.0) g/dL RDW (11.5-15.5) % Plt Count (150-450) k/uL Neutrophils # (1.3-7.7) k/uL Lymphocytes # (1.0-4.8) k/uL PT (10.0-12.5) sec INR (<1.2) Chloride (98-107) mmol/L Carbon Dioxide (22-30) mmol/L BUN (9-20) mg/dL Glucose (74-99) mg/dL POC Glucose (mg/dL) 191 H (70-110) mg/dL Calcium (8.4-10.2) mg/dL Total Protein (6.3-8.2) g/dL Albumin (3.5-5.0) g/dL Microbiology - Last 24 Hours (Table) 10/09/23 08:05 Blood Culture - Preliminary Blood 10/09/23 08:20 Blood Culture - Preliminary Blood 10/11/23 10:57 Gram Stain - Preliminary Sputum Sputum Culture - Preliminary Anjana albicans
[2023-10-12 20:09] LABS: Glucose,Whole Blood 188 mg/dL (70-110)
--- NOTE | 2023-10-12 22:39 | P.PN ---
Subjective Progress Note Date: 10/12/23 I am seeing this patient in the emergency department for worsening shortness of breath. The patient is known to me. The patient has been treated for necrotizing right lung pneumonia and the patient had a prolonged hospitalization back in August 2023. The patient was discharged home to be readmitted on 10/04/2023 for abdominal pain and the patient was discharged home on 10/07/[address] scan of the abdomen that was done during the prior hospitalization showed no evidence of any acute abnormalities. The patient was asked to continue Trelegy Ellipta as maintenance, prednisone burst taper, and completed a course of Vantin on outpatient basis as directed. Following his discharge, the patient continued to have difficulties in breathing. He came back to the emergency department and he stated that he was still coughing yellowish sputum. Noted overall, his cough and congestion has been progressively improving over the past 6 weeks. At the time of my evaluation in the emergency, the patient had no major respiratory distress. He was however found to be in atrial fibrillation with rapid ventricu lar response. Accordingly, the patient was placed on oral Cardizem 180 mg p.o. daily and metoprolol 50 mg p.o. twice a day and he takes long-term anticoagulation with warfarin. His INR was at 1.6. I also reviewed the chest x-ray that was done in the emergency. There is obvious COPD in the background. There is also a right lung consolidation which has been gradually improving based on the series of chest x-ray that was done during multiple hospitalizations. There is some residual perihilar consolidation. Note that his most recent CAT scan of the chest that was done on 09/21/2023 showed a dense focal consolidation in the superior segment of the right lower lobe extending to the hilum in addition to his extensive COPD. His blood work from today shows a WBC count 13.7 with a hemoglobin 9.3 and a platelet count of 139. BUN 38 with a creatinine of 0.6 and a sodium levels at 138. Lactic acid level was at 4.1. proBNP level was 1190, LFTs were essentially within normal limits. His most recent sputum analysis from 09/21/2023 was positive for Serratia marcescens. Previous sputum analysis from 03/21/2023 was positive for Pseudomonas aeruginosa. On 10/10/2023, patient is being seen for a follow-up. Breathing is still labored. He has very limited pulmonary reserve as the patient has advanced COPD. In regards to the right lung pneumonia, the patient had a follow-up CAT scan of the chest and this was reviewed and compared to the earlier images. As mentioned, the patient has marked emphysematous changes bilaterally and there is reduction in the right lung pulmonary consolidation and effusion. There are some chronic stable infiltrates consistent with interstitial scarring and fibrosis on the left. 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 Cultures are to be sent. Lactic acid level is down to 3.7. Remains in atrial fibrillation. INR today is at 2.1. IV cefepime was restarted. Rest of medications remain unchanged. He remains on O2 at 4 L with a pulse ox of 94%. On 10/11/2023, I am seeing the patient for a follow-up. Remains on 40 Suboxone by nasal cannula. No new complaints otherwise for now. Remains on IV cefepime. PT/INR is therapeutic. Awaiting follow-up sputum Gram stain and culture. Sodium is at 137, BUN is at 35 with a creatinine of 0.7 and potassium is at 3.8. The white cell count 13.4 with a hemoglobin of 10.1. No other significant events overnight. The patient remains on IV Solu-Medrol 60 mg every 6 hours and the patient is on DuoNeb updrafts. Remains on torsemide 20 mg p.o. daily. The patient is on oxygen 4 L/min nasal cannula. No altered mentation. He continues to be in atrial fibrillation and the patient is maintained on a combination of metoprolol 50 mg twice a day, Cardizem CD 80 mg p.o. daily anticoagulation with warfarin with an INR of 2.9. 10/12/2023, patient is being seen for a follow-up. Patient remains on 4 L of oxygen by nasal cannula with a pulse ox of 91%. No specific complaints for today. We were able to collect another sputum sample and sputum cultures was positive for Anjana. Remains on IV cefepime. Remains on bronchodilators. Remains on IV Solu-Medrol 60 mg every 6 hours. Able to communicate. No angina. No palpitations. No chest pain. His heart rate is under better control. The patient has no signs of any significant fluid overload. He remains quite cachectic and severely malnourished and he has protein calorie malnutrition and he was given protein shakes twice a day. Objective - Vital Signs Vital signs: Vital Signs Temp 97.5 F L 10/12/23 08:06 Pulse 94 10/12/23 08:27 Resp 18 10/12/23 08:06 BP 125/82 10/12/23 08:06 Pulse Ox 98 10/12/23 08:11 FiO2 60 10/09/23 15:36 Intake & Output 10/11/23 10/12/23 10/12/23 18:59 06:59 18:59 Intake Total 358 480 356 Output Total 501 500 1 Balance -143 -20 355 Intake: Oral 358 480 356 Output: Urine 500 500 Stool 1 1 Other: Voiding Method Bedside Commode Bedside Commode Bedside Commode Urinal Urinal Urinal # Voids 1 1 # Bowel Movements 1 - Exam GENERAL EXAM: Alert, frail 87-year-old white male, comfortable in no apparent distress. The patient is currently on 4 L of O2 nasal cannula HEAD: Normocephalic and atraumatic EYES: Normal reaction of pupils, equal size. NOSE: Clear with pink turbinates. THROAT: No erythema or exudates. NECK: No masses, no JVD. CHEST: No chest wall deformity. LUNGS: Equal air entry with markedly diminished lung sounds throughout. No crackles, wheezes, rhonchi. No conversational dyspnea or accessory muscle use.. CVS: S1 and S2 normal with no audible murmur, irregular rhythm. No extra heart sounds ABDOMEN: No hepatosplenomegaly, active bowel sounds, no guarding or rigidity. SPINE: No scoliosis or deformity SKIN: No rashes CENTRAL NERVOUS SYSTEM: No focal deficits, tone is normal in all 4 extremities. EXTREMITIES: There bilateral lower extremity pitting edema. No clubbing, or cyanosis. Peripheral pulses are intact - Labs CBC & Chem 7: 10/12/23 10:03 10/12/23 10:03 Labs: Abnormal Lab Results - Last 24 Hours (Table) 10/11/23 10/12/23 Range/Units 20:50 05:36 POC Glucose (mg/dL) 211 H 218 H (70-110) mg/dL Microbiology - Last 24 Hours (Table) 10/11/23 10:57 Gram Stain - Preliminary Sputum 10/09/23 08:05 Blood Culture - Preliminary Blood 10/09/23 08:20 Blood Culture - Preliminary Blood Assessment and Plan Plan: Acute on chronic dyspnea, and hypoxic respiratory failure and the patient is currently on 4 L of oxygen by nasal cannula, no clear progression of his pneumonia based on the most recent chest x-ray. In fact, reviewing the series of chest x-rays going back to March 2023, there has been steady and ongoing improvement. Nevertheless, the patient is chronically debilitated and has chronic dyspnea. His dyspnea is multifactorial. Advanced COPD. He was also in atrial fibrillation with RVR at time of admission which probably contributed to his worsening shortness of breath. Oxygenation remained stable and the patient remains on 4 L of O2 nasal cannula. Right-sided necrotizing pneumonia. I reviewed the series of CAT scans were done and the patient from December 2022, March 2023 and the most recent CAT scan of the chest that was done on 09/21/2023. It seems that the patient developed a cavitating consolidation of the right lower lobe back in March 2023. At that time, the sputum was positive for Pseudomonas aeruginosa. This was treated in the hospital with antibiotics. Subsequent CAT scan of the chest was done and again that showed diffuse emphysematous changes along with scarring and bronchiectasis. The patient has also peribronchial thickening consistent with COPD. There was a patchy area of consolidation/atelectasis in the right lower lobe and some irregular opacities in the left upper lobe and the left lower lobe associated with atelectasis. Patient is currently on IV cefepime. Pro calcitonin level is at 0.11. Sputum culture showed Serratia marcescens. Repeat chest x-ray shows stable/ongoing improvement right lung/perihilar consolidation/pneumonia. Repeat CAT scan of the chest on 10/09/2023 shows improvement in the right lung consolidation with some limited interstitial scar ring in the left lung with some minimal residual changes on the right with advanced background emphysema. The patient is coughing up purulent respiratory secretions. Cultures will be obtained. Currently on IV cefepime. Unintentional weight loss, reportedly lost 30 pounds over a 6 to 9-month time frame. History of hemoptysis, recovered History of left lower lung nodule, followed up outpatient Chronic ongoing tobacco dependence, still smokes 2 to 3 cigarettes every couple days. Severe chronic obstructive pulmonary disease, with an FEV1 37% of predicted Chronic hypoxemic respiratory failure, secondary to above, normally maintained on 4 L/min nasal cannula while at home. Acute leukocytosis, stable Atrial fibrillation with rapid ventricular rate, currently on a combination of metoprolol and Cardizem and the patient is also on long-term anticoagulation with warfarin, echocardiogram shows a preserved LV function with mild to moderate mitral regurgitation Supratherapeutic INR, recovered and INR is therapeutic at 2.9 History of thoracic aortic aneurysm, stable on repeated CAT scans Bilateral lower extremity edema, stable Plan: Continue oxygen 4 L/min nasal cannula and titrated down to maintain saturation above 90% No major change in his overall condition over the past 24 hours Repeat sputum sample was positive for Anjana albicans. Continue bronchodilators Continue IV Solu-Medrol, will start tapering steroids as of tomorrow Continue IV cefepime and completed 7-day course Repeat a CAT scan of the chest was done on 10/09/2023 and compared to the earlier CAT scan and the findings available with reduction in the right lung consolidation and effusion. Nevertheless, the patient advanced COPD and diffuse emphysematous changes and limited scarring bilaterally. He is very much debilitated and his respiratory reserve is minimal and short of breath with limited amount of activity and even at rest. Will recheck sputum Gram stain and culture will make further antibiotic adjustments if needed. Continue Mucinex DM twice a day Echocardiogram for the present LV function from last admission We will monitor PT/INR, PT/INR is therapeutic for now the patient is on warfarin Metoprolol and Cardizem for rate control Dietary supplementation and the patient was given 40 shakes twice a day ebilitated and carries a body mass index of 16.2. Overall prognosis poor. Will continue to follow make further recommendations based on the progress.
[2023-10-13 05:41] LABS: Glucose,Whole Blood 154 mg/dL (70-110)
[2023-10-13 10:27] LABS: INR 2.5 (<1.2); Prothrombin Time 24.9 sec (10.0-12.5)
[2023-10-13 10:34] LABS: Anisocytosis Slight; Basophils % (A) 0 %; Eosinophils % (A) 0 %; HCT 36.3 % (39.0-53.0); HGB 10.4 gm/dL (13.0-17.5); Hypochromasia Marked; Lymphocytes # (A) 0.2 k/uL (1.0-4.8); Lymphocytes % (A) 1 %; MCH 24.7 pg (25.0-35.0); MCHC 28.6 g/dL (31.0-37.0); MCV 86.3 fL (80.0-100.0); Monocytes # (A) 0.3 k/uL (0-1.0); Monocytes % (A) 2 %; Neutrophils % (A) 96 %; Platelet Count 150 k/uL (150-450); RBC 4.21 m/uL (4.30-5.90); RDW 18.8 % (11.5-15.5); WBC 10.5 k/uL (3.8-10.6)
[2023-10-13 10:49] LABS: ALT 35 U/L (4-49); AST 31 U/L (17-59); African American GFR (CKD) 89 (>60 ml/min/1.73 sqM); Albumin 3.1 g/dL (3.5-5.0); Alkaline Phosphatase 119 U/L (38-126); Anion Gap 5 mmol/L; Blood Urea Nitrogen 41 mg/dL (9-20); Calcium 8.1 mg/dL (8.4-10.2); Carbon Dioxide 37 mmol/L (22-30); Chloride 96 mmol/L (98-107); Glucose 251 mg/dL (74-99); Non-African American GFR(CKD) 77 (>60 ml/min/1.73 sqM); Potassium 3.9 mmol/L (3.5-5.1); Sodium 138 mmol/L (137-145); Total Bilirubin 0.7 mg/dL (0.2-1.3); Total Protein 5.6 g/dL (6.3-8.2)
[2023-10-13 11:20] LABS: Glucose,Whole Blood 144 mg/dL (70-110)
--- NOTE | 2023-10-13 16:12 | P.PN ---
Subjective Progress Note Date: 10/13/23 I am seeing this patient in the emergency department for worsening shortness of breath. The patient is known to me. The patient has been treated for necrotizing right lung pneumonia and the patient had a prolonged hospitalization back in August 2023. The patient was discharged home to be readmitted on 10/04/2023 for abdominal pain and the patient was discharged home on 10/07/[address] scan of the abdomen that was done during the prior hospitalization showed no evidence of any acute abnormalities. The patient was asked to continue Trelegy Ellipta as maintenance, prednisone burst taper, and completed a course of Vantin on outpatient basis as directed. Following his discharge, the patient continued to have difficulties in breathing. He came back to the emergency department and he stated that he was still coughing yellowish sputum. Noted overall, his cough and congestion has been progressively improving over the past 6 weeks. At the time of my evaluation in the emergency, the patient had no major respiratory distress. He was however found to be in atrial fibrillation with rapid ventricu lar response. Accordingly, the patient was placed on oral Cardizem 180 mg p.o. daily and metoprolol 50 mg p.o. twice a day and he takes long-term anticoagulation with warfarin. His INR was at 1.6. I also reviewed the chest x-ray that was done in the emergency. There is obvious COPD in the background. There is also a right lung consolidation which has been gradually improving based on the series of chest x-ray that was done during multiple hospitalizations. There is some residual perihilar consolidation. Note that his most recent CAT scan of the chest that was done on 09/21/2023 showed a dense focal consolidation in the superior segment of the right lower lobe extending to the hilum in addition to his extensive COPD. His blood work from today shows a WBC count 13.7 with a hemoglobin 9.3 and a platelet count of 139. BUN 38 with a creatinine of 0.6 and a sodium levels at 138. Lactic acid level was at 4.1. proBNP level was 1190, LFTs were essentially within normal limits. His most recent sputum analysis from 09/21/2023 was positive for Serratia marcescens. Previous sputum analysis from 03/21/2023 was positive for Pseudomonas aeruginosa. On 10/10/2023, patient is being seen for a follow-up. Breathing is still labored. He has very limited pulmonary reserve as the patient has advanced COPD. In regards to the right lung pneumonia, the patient had a follow-up CAT scan of the chest and this was reviewed and compared to the earlier images. As mentioned, the patient has marked emphysematous changes bilaterally and there is reduction in the right lung pulmonary consolidation and effusion. There are some chronic stable infiltrates consistent with interstitial scarring and fibrosis on the left. 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 Cultures are to be sent. Lactic acid level is down to 3.7. Remains in atrial fibrillation. INR today is at 2.1. IV cefepime was restarted. Rest of medications remain unchanged. He remains on O2 at 4 L with a pulse ox of 94%. On 10/11/2023, I am seeing the patient for a follow-up. Remains on 40 Suboxone by nasal cannula. No new complaints otherwise for now. Remains on IV cefepime. PT/INR is therapeutic. Awaiting follow-up sputum Gram stain and culture. Sodium is at 137, BUN is at 35 with a creatinine of 0.7 and potassium is at 3.8. The white cell count 13.4 with a hemoglobin of 10.1. No other significant events overnight. The patient remains on IV Solu-Medrol 60 mg every 6 hours and the patient is on DuoNeb updrafts. Remains on torsemide 20 mg p.o. daily. The patient is on oxygen 4 L/min nasal cannula. No altered mentation. He continues to be in atrial fibrillation and the patient is maintained on a combination of metoprolol 50 mg twice a day, Cardizem CD 80 mg p.o. daily anticoagulation with warfarin with an INR of 2.9. 10/12/2023, patient is being seen for a follow-up. Patient remains on 4 L of oxygen by nasal cannula with a pulse ox of 91%. No specific complaints for today. We were able to collect another sputum sample and sputum cultures was positive for Anjana. Remains on IV cefepime. Remains on bronchodilators. Remains on IV Solu-Medrol 60 mg every 6 hours. Able to communicate. No angina. No palpitations. No chest pain. His heart rate is under better control. The patient has no signs of any significant fluid overload. He remains quite cachectic and severely malnourished and he has protein calorie malnutrition and he was given protein shakes twice a day. Today patient 10/13/2023, seen the patient for a follow-up. Essentially the stamina she is compared to yesterday. Sputum sample was collected showed Anjana albicans. Remains on bronchodilators. Remains on steroids. Remains on IV cefepime. Profoundly weak and debilitated. Has a congested cough although amount of sputum production is less. INR is therapeutic at 2.5. White cell count of 10.5, BUN is 41 with a creatinine of 0.9. No other significant events overnight and the patient remains on 40 Suboxone by nasal cannula. Objective - Vital Signs Vital signs: Vital Signs Temp 97.6 F 10/13/23 11:36 Pulse 84 10/13/23 11:39 Resp 24 10/13/23 11:36 BP 100/75 10/13/23 11:36 Pulse Ox 90 L 10/13/23 11:36 FiO2 60 10/09/23 15:36 Intake & Output 10/12/23 10/13/23 10/13/23 18:59 06:59 18:59 Intake Total 830 240 480 Output Total 0615 149 6478 Balance -522 -360 -1370 Weight 53.4 kg Intake: Oral 830 240 480 Output: Urine 940 620 5281 Stool 602 Other: Voiding Method Bedside Commode Bedside Commode Bedside Commode Urinal Urinal Urinal # Voids 2 # Bowel Movements 1 - Exam GENERAL EXAM: Alert, frail 87-year-old white male, comfortable in no apparent distress. The patient is currently on 4 L of O2 nasal cannula HEAD: Normocephalic and atraumatic EYES: Normal reaction of pupils, equal size. NOSE: Clear with pink turbinates. THROAT: No erythema or exudates. NECK: No masses, no JVD. CHEST: No chest wall deformity. LUNGS: Equal air entry with markedly diminished lung sounds throughout. No crackles, wheezes, rhonchi. No conversational dyspnea or accessory muscle use.. CVS: S1 and S2 normal with no audible murmur, irregular rhythm. No extra heart sounds ABDOMEN: No hepatosplenomegaly, active bowel sounds, no guarding or rigidity. SPINE: No scoliosis or deformity SKIN: No rashes CENTRAL NERVOUS SYSTEM: No focal deficits, tone is normal in all 4 extremities. EXTREMITIES: There bilateral lower extremity pitting edema. No clubbing, or cyanosis. Peripheral pulses are intact - Labs CBC & Chem 7: 10/13/23 09:24 10/13/23 09:24 Labs: Abnormal Lab Results - Last 24 Hours (Table) 10/12/23 10/12/23 10/13/23 Range/Units 16:54 20:05 05:39 RBC (4.30-5.90) m/uL Hgb (13.0-17.5) gm/dL Hct (39.0-53.0) % MCH (25.0-35.0) pg MCHC (31.0-37.0) g/dL RDW (11.5-15.5) % Neutrophils # (1.3-7.7) k/uL Lymphocytes # (1.0-4.8) k/uL PT (10.0-12.5) sec INR (<1.2) Chloride (98-107) mmol/L Carbon Dioxide (22-30) mmol/L BUN (9-20) mg/dL Glucose (74-99) mg/dL POC Glucose (mg/dL) 191 H 188 H 154 H (70-110) mg/dL Calcium (8.4-10.2) mg/dL Total Protein (6.3-8.2) g/dL Albumin (3.5-5.0) g/dL 10/13/23 10/13/23 10/13/23 Range/Units :24 09:24 09:24 RBC 4.21 L (4.30-5.90) m/uL Hgb 10.4 L (13.0-17.5) gm/dL Hct 36.3 L (39.0-53.0) % MCH 24.7 L (25.0-35.0) pg MCHC 28.6 L (31.0-37.0) g/dL RDW 18.8 H (11.5-15.5) % Neutrophils # 10.0 H (1.3-7.7) k/uL Lymphocytes # 0.2 L (1.0-4.8) k/uL PT 24.9 H (10.0-12.5) sec INR 2.5 H (<1.2) Chloride 96 L (98-107) mmol/L Carbon Dioxide 37 H (22-30) mmol/L BUN 41 H (9-20) mg/dL Glucose 251 H (74-99) mg/dL POC Glucose (mg/dL) (70-110) mg/dL Calcium 8.1 L (8.4-10.2) mg/dL Total Protein 5.6 L (6.3-8.2) g/dL Albumin 3.1 L (3.5-5.0) g/dL 10/13/23 Range/Units 11:19 RBC (4.30-5.90) m/uL Hgb (13.0-17.5) gm/dL Hct (39.0-53.0) % MCH (25.0-35.0) pg MCHC (31.0-37.0) g/dL RDW (11.5-15.5) % Neutrophils # (1.3-7.7) k/uL Lymphocytes # (1.0-4.8) k/uL PT (10.0-12.5) sec INR (<1.2) Chloride (98-107) mmol/L Carbon Dioxide (22-30) mmol/L BUN (9-20) mg/dL Glucose (74-99) mg/dL POC Glucose (mg/dL) 144 H (70-110) mg/dL Calcium (8.4-10.2) mg/dL Total Protein (6.3-8.2) g/dL Albumin (3.5-5.0) g/dL Microbiology - Last 24 Hours (Table) 10/11/23 10:57 Gram Stain - Final Sputum Sputum Culture - Final Anjana albicans 10/09/23 08:05 Blood Culture - Preliminary Blood 10/09/23 08:20 Blood Culture - Preliminary Blood Assessment and Plan Plan: Acute on chronic dyspnea, and hypoxic respiratory failure and the patient is currently on 4 L of oxygen by nasal cannula, no clear progression of his pneumonia based on the most recent chest x-ray. In fact, reviewing the series of chest x-rays going back to March 2023, there has been steady and ongoing improvement. Nevertheless, the patient is chronically debilitated and has chronic dyspnea. His dyspnea is multifactorial. Advanced COPD. He was also in atrial fibrillation with RVR at time of admission which probably contributed to his worsening shortness of breath. Oxygenation remained stable and the patient remains on 4 L of O2 nasal cannula. Right-sided necrotizing pneumonia. I reviewed the series of CAT scans were done and the patient from December 2022, March 2023 and the most recent CAT scan of the chest that was done on 09/21/2023. It seems that the patient developed a cavitating consolidation of the right lower lobe back in March 2023. At that time, the sputum was positive for Pseudomonas aeruginosa. This was treated in the hospital with antibiotics. Subsequent CAT scan of the chest was done and again that showed diffuse emphysematous changes along with scarring and bronchiectasis. The patient has also peribronchial thickening consistent with COPD. There was a patchy area of consolidation/atelectasis in the right lower lobe and some irregular opacities in the left upper lobe and the left lower lobe associated with atelectasis. Patient is currently on IV cefepime. Procalcitonin level is at 0.11. Sputum culture showed Serratia marcescens. Repeat chest x-ray shows stable/ongoing improvement right lung/perihilar consolidation/pneumonia. Repeat CAT scan of the chest on 10/09/2023 shows improvement in the right lung consolidation with some limited interstitial scarring in the left lung with some minimal residual changes on the right with advanced background emphysema. The patient is coughing up purulent respiratory secretions. Cultures will be obtained. Currently on IV cefepime. Unintentional weight loss, reportedly lost 30 pounds over a 6 to 9-month timeframe. History of hemoptysis, recovered History of left lower lung nodule, followed up outpatient Chronic ongoing tobacco dependence, still smokes 2 to 3 cigarettes every couple days. Severe chronic obstructive pulmonary disease, with an FEV1 37% of predicted Chronic hypoxemic respiratory failure, secondary to above, normally maintained on 4 L/min nasal cannula while at home. Acute leukocytosis, stable Atrial fibrillation with rapid ventricular rate, currently on a combination of metoprolol and Cardizem and the patient is also on long-term anticoagulation with warfarin, echocardiogram shows a preserved LV function with mild to moderate mitral regurgitation Supratherapeutic INR, recovered and INR is therapeutic at 2.9 History of thoracic aortic aneurysm, stable on repeated CAT scans Bilateral lower extremity edema, stable Plan: Clinically unchanged compared to yesterday we will continue same management for now. The sputum sample is showing Anjana albicans. Continue oxygen 4 L/min nasal cannula and titrated down to maintain saturation above 90% No major change in his overall condition over the past 24 hours Cough and congestion is improving slowly. Continue bronchodilators Continue IV Solu-Medrol, will start tapering steroids as of tomorrow Continue IV cefepime and completed 7-day course Repeat a CAT scan of the chest was done on 10/09/2023 and compared to the earlier CAT scan and the findings available with reduction in the right lung consolidation and effusion. Nevertheless, the patient advanced COPD and diffuse emphysematous changes and limited scarring bilaterally. He is very much debilitated and his respiratory reserve is minimal and short of breath with limited amount of activity and even at rest. Will recheck sputum Gram stain and culture will make further antibiotic adjustments if needed. Continue Mucinex DM twice a day Echocardiogram for the present LV function from last admission We will monitor PT/INR, PT/INR is therapeutic for now the patient is on warfarin Metoprolol and Cardizem for rate control Dietary supplementation and the patient was given 40 shakes twice a day ebilitated and carries a body mass index of 16.2. Overall prognosis poor. Will continue to follow make further recommendations based on the progress.
[2023-10-13 16:22] LABS: Glucose,Whole Blood 199 mg/dL (70-110)
[2023-10-13] MEDS: methylPREDNISolone SOD SUCCI 40 MG/ML 1 ML VIAL IV SCH (17:03)
[2023-10-13] MEDS: WARFARIN 2 MG TAB PO ONE (17:03)
--- NOTE | 2023-10-13 18:34 | P.PN ---
Subjective Progress Note Date: 10/13/23 HISTORY OF PRESENT ILLNESS: This is an 87-year-old male with a previous medical history signif icant for 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 failure on oxygen at home due to severe COPD with FEV1 of 37% of predicted, chronic atrial fibrillation, thoracic aortic aneurysm, abdominal aortic aneurysm, chronic diastolic heart failure, chronic pulmonary hypertension, patient was recently hospitalized at [facility] back in March 2023 after he was admitted for what appears to be a right lower lobe Pseudomonas pneumonia involving the superior segment of the right lower lobe and it showed like a masslike consolidation back on the CT scan and he was treated and his x-ray showed improvement but never had a bronchoscopy, patient is following regularly with Dr. Zapata as an outpatient. Patient has been feeling ill for the last 4 weeks. Patient was recently admitted for right lower lobe pneumonia, shortness of breath and was complaining of fever chills fatigue tiredness and weight loss. He also had bilateral pleural effusions cardiomegaly and was found to have leukocytosis, coagulopathy with an INR of 9.7. Patient was treated in the hospital he was given IV antibiotic in the form of cefepime, and he was treated with IV Solu-Medrol 60 mg IV push every 6 hours, that was transitioned to oral prednisone as well as oral cefpodoxime that was supposed to be taken on last Monday, however he never did, and the patient ended up coming back to the emergency department at [facility] with increased shortness of breath and increased coughing, he was admitted again with acute exacerbation of COPD/right lower lobe pneumonia, he was started on cefepime, Solu-Medrol, he was switched to prednisone, he was just discharged from the hospital on Monday and he was doing fine up till last night when he became quite confused and delirious, and he was extremely short of breath, he was in atrial fibrillation with rapid ventricle response, his heart rate was around 1 25-1 30, he became quite hypoxemic, he was not able to breathe much, his called 911, he was brought to the emergency department at [facility] he was found to be in A-fib with RVR, his x-ray showed improvement of his right lower lobe pneumonia, he was seen in consultation by pulmonary medicine who will be seen in consultation by cardiology, he will be admitted to the hospital for further evaluation and treatment of noticed his son was at the bedside and he told me that the patient did not take his medication when he went back home this time. 10/09: Patient is sitting up in bed he appears to be quite short of breath today, he did receive quite a bit of IV fluid yesterday, he currently on 75 cc an hour, I will discontinue his IV fluid, started the patient back on his diuretics in the form of Lasix 20 mg IV push every 12 hours, continue on spironolactone 25 mg orally once every day, monitor the patient input and output and daily weight, we will follow-up with the patient very closely, patient underwent CT scan of the chest that showed evidence of marked emphysema changes, with resolution or complete resolution of the right lower lobe infiltrate with the pleural effusion, there is a scar tissue in the left lung, and a stable thoracic aortic aneurysm and abdominal aortic aneurysm, and minimal ascites in the abdomen, patient does appear to be quite short of breath today, continue with Solu-Medrol 60 mg IV push every 6 hours continue cefepime 2 g IV piggyback every 12 hours, monitor the patient very closely. Patient has been seen in consultation by cardiology, as well as pulmonary medicine. 10/10: Patient is sitting at the edge of the bed he continues to be extremely short of breath, he continues to have cough minimal phlegm production, he was able to give a sputum specimen today, continues the patient on cefepime 2 g IV piggyback every 12 hours, he was started yesterday on IV Lasix 20 mg switch again by cardiology to oral Lasix 20 mg once every day along with the spironolactone 25 mg once every day, he was started on Farxiga 5 mg orally once every day continue to be on metoprolol and Cardizem, he has been followed by pulmonary medicine as well as by cardiology, will continue with the same Solu- Medrol at this time as the patient appears to be extremely short of breath, he appears to be medically debilitated, and he may need to go for the subacute rehabilitation when the time, for disposition he is not ready to get out of the hospital at this point. 10/11: Patient is sitting in recliner chair, he appears to be extremely short of breath, he continues to be on 4 L nasal cannula, he is very dyspneic with minimal activity including talking, he has been getting Lasix 20 mg once every day as well as Farxiga along with spironolactone, his heart rate is a bit better, he is to be maintained on Solu-Medrol 60 mg IV push every 6 hours for an other 24 hours, hopefully will try to cut down the next 24 hours, may need to use the BiPAP at night, pulmonary is following, continue IV antibiotic at this time, patient appears to be quite cachectic with severe protein calorie malnutrition added protein shakes twice every day, patient will likely require subacute rehabilitation even though he refuses that. 10/12: Patient is sitting up in chair, he continues to be somewhat short of breath, he continues to be on 4 L nasal cannula, he appears to be weak, he continues to be on Solu-Medrol, nebulized treatment, he continues to increase his protein intake, we will monitor the patient very closely, continue current treatment plan, overall prognosis continues to be guarded, patient is full code as of now, his sputum culture showed Anjana albicans which likely contamination, continue current IV antibiotic, we will try to wean down on his Solu-Medrol to 40 mg IV push every 8 hours. REVIEW OF SYSTEMS: Constitutional: Negative for fever, negative for chills, no night sweats. Significant weight change. Positive for weakness, fatigue or lethargy. No daytime sleepiness. HEENT: No headache. No blurred vision or double vision, no loss of vision. No loss of Hearing, no ringing in the ears, no dizziness. No nasal drainage or congestion. No epistaxis. No sore throat. Lungs: positive for shortness of breath, positive for cough, yellow and green sputum production. Reports dyspnea with activity. Cardiovascular: No chest pain, positive for lower extremity edema. positive for palpitations. No paroxysmal nocturnal dyspnea. positive for orthopnea. No lightheadedness or dizziness. No syncopal episodes. Abdominal: Reports abdominal pain. positive for nausea, no vomiting. No diarrhea. No constipation. No bloody or tarry stools reports loss of appetite. Genitourinary: No dysuria, increased frequency, urgency. No urinary retention. Musculoskeletal: No myalgias. positive for muscle weakness, positive for gait dysfunction, no frequent falls. No back pain. No neck pain. Integumentary: No wounds, no lesions. No rash or pruritus. No unusual bruising. No change in hair or nails. Neurologic: No aphasia. No facial droop. No change in mentation. No head injury. No headache. No paralysis. No paresthesia. Psychiatric: No depression. No anxiety. No mood swings. Endocrine: No abnormal blood sugars. No weight change. PHYSICAL EXAMINATION: General: 87-year-old male laying down in bed in minimal respiratory distress. HEENT: Head is atraumatic, normocephalic, pupils were equal round reactive to light and recommendation, extraocular muscle movement were intact, sclera nonicteric, conjunctivae were pale, mucous membranes of the mouth are somewhat dry. Neck: Supple, no JVP, normal carotid upstroke bilaterally, no lymphadenopathy. Chest: Decreased breath sounds at the bases, few rhonchi, minimal expiratory wheezes, no chest wall tenderness, no intercostal retractions. Heart: First heart sound is normal, second heart sound is normal irregularly irregular there is JULI 2/6 located at the left sternal border Abdomen: Soft, mild tenderness to the left upper quadrant no rebound or guarding, nondistended, positive bowel sounds. Extremities: There is +1 edema no calf tenderness DP +2 bilaterally. Neurologic examination: Patient is awake alert and oriented X 3, cranial nerves II-12 appear grossly intact, muscle power were 4 out of 5 in upper extremities and 3 out of 5 in bilateral lower extremities, deep tendon reflexes normal bilaterally. ASSESSMENT AND PLAN: 1. Acute on chronic hypoxemic respiratory failure due to acute COPD exacerbation with residual right lower lobe pneumonia that appeared better on CT chest at this time with residual left-sided pleural effusion. Continue patient on cefepime 2 g IV piggyback every 12 hours, continue DuoNeb 3 mL nebulization 4 times every day, continue oxygen support, sputum cultures showed Anjana albicans, blood cultures are negative, decrease Solu-Medrol 40 mg IV push every 8 hours, continue patient on metoprolol 50 mg orally twice every day Cardizem CD 180 mg once every day, continue Lasix 20 mg orally once every day, spironolactone 25 mg orally once every day monitor input and output and daily weight. 2. Metabolic encephalopathy likely due to hypoxemic respiratory failure continue treatment as in the previous paragraph. 3. Atrial fibrillation with rapid ventricular response. Continue patient on metoprolol 50 mg orally twice every day, Cardizem CD 180 mg once every day, patient INR subtherapeutic, patient will be given 5 mg of Coumadin tonight recheck INR tomorrow morning.. 4. Chronic atrial fibrillation. Maintain the patient on metoprolol 50 mg orally twice every day as well as Cardizem CD 180 mg once every day, continue Coumadin 2 mg tonight, repeat INR tomorrow morning today INR is one 2.9 5. Lactic acidosis. Resolved his lactic acid is back to normal. 6. Acute on on chronic diastolic heart failure. Continue Lasix 20 mg orally once every day, continue metoprolol 50 mg orally twice every day, continue Cardizem CD 180 mg once every day monitor the patient input and output and daily weight. Patient underwent echocardiogram that showed preserved LV function, with moderate aortic regurgitation as well as moderate to severe mitral regurgitation, continue Farxiga 5 mg once every day monitor input and output and daily weight. 7. Thoracic aortic aneurysm. Has been under the care of cardiology CT angiography is up-to-date. Has been stable at 4.5 cm. 8. Abdominal aortic aneurysm. Stable at 3.8 cm. 9. Bullous pemphigoid. Is stable. 10. DVT prophylaxis. patient did receive 2 mg of coumadin tonight Keep his INR between 2-3. 11. GI prophylaxis. Continue patient on Protonix 40 mg orally once every day. 12. Medical debility. Physical therapy evaluation. 13. Severe protein calorie malnutrition present on admission. Continue with Ensure twice every day, increase protein intake, monitor the patient's symptoms very closely. Physical therapy evaluation. 14. Overall prognosis is very guarded. Objective - Vital Signs Vital signs: Vital Signs Temp 97.6 F 10/13/23 11:36 Pulse 84 10/13/23 11:41 Resp 24 10/13/23 11:36 BP 100/75 10/13/23 11:36 Pulse Ox 90 L 10/13/23 11:36 FiO2 60 10/09/23 15:36 Intake & Output 10/12/23 10/13/23 10/13/23 18:59 06:59 18:59 Intake Total 830 240 720 Output Total 6711 395 8941 Balance -529 -799 -6260 Weight 53.4 kg Intake: Oral 830 240 720 Output: Urine 605 216 9541 Stool 602 Other: Voiding Method Bedside Commode Bedside Commode Bedside Commode Urinal Urinal Urinal # Voids 2 # Bowel Movements 1 - Labs CBC & Chem 7: 10/13/23 09:24 10/13/23 09:24 Labs: Abnormal Lab Results - Last 24 Hours (Table) 10/12/23 10/12/23 10/13/23 Range/Units 16:54 20:05 05:39 RBC (4.30-5.90) m/uL Hgb (13.0-17.5) gm/dL Hct (39.0-53.0) % MCH (25.0-35.0) pg MCHC (31.0-37.0) g/dL RDW (11.5-15.5) % Neutrophils # (1.3-7.7) k/uL Lymphocytes # (1.0-4.8) k/uL PT (10.0-12.5) sec INR (<1.2) Chloride (98-107) mmol/L Carbon Dioxide (22-30) mmol/L BUN (9-20) mg/dL Glucose (74-99) mg/dL POC Glucose (mg/dL) 191 H 188 H 154 H (70-110) mg/dL Calcium (8.4-10.2) mg/dL Total Protein (6.3-8.2) g/dL Albumin (3.5-5.0) g/dL 10/13/23 10/13/23 10/13/23 Range/Units 09:24 09:24 09:24 RBC 4.21 L (4.30-5.90) m/uL Hgb 10.4 L (13.0-17.5) gm/dL Hct 36.3 L (39.0-53.0) % MCH 24.7 L (25.0-35.0) pg MCHC 28.6 L (31.0-37.0) g/dL RDW 18.8 H (11.5-15.5) % Neutrophils # 10.0 H (1.3-7.7) k/uL Lymphocytes # 0.2 L (1.0-4.8) k/uL PT 24.9 H (10.0-12.5) sec INR 2.5 H (<1.2) Chloride 96 L (98-107) mmol/L Carbon Dioxide 37 H (22-30) mmol/L BUN 41 H (9-20) mg/dL Glucose 251 H (74-99) mg/dL POC Glucose (mg/dL) (70-110) mg/dL Calcium 8.1 L (8.4-10.2) mg/dL Total Protein 5.6 L (6.3-8.2) g/dL Albumin 3.1 L (3.5-5.0) g/dL 10/13/23 Range/Units 11:19 RBC (4.30-5.90) m/uL Hgb (13.0-17.5) gm/dL Hct (39.0-53.0) % MCH (25.0-35.0) pg MCHC (31.0-37.0) g/dL RDW (11.5-15.5) % Neutrophils # (1.3-7.7) k/uL Lymphocytes # (1.0-4.8) k/uL PT (10.0-12.5) sec INR (<1.2) Chloride (98-107) mmol/L Carbon Dioxide (22-30) mmol/L BUN (9-20) mg/dL Glucose (74-99) mg/dL POC Glucose (mg/dL) 144 H (70-110) mg/dL Calcium (8.4-10.2) mg/dL Total Protein (6.3-8.2) g/dL Albumin (3.5-5.0) g/dL Microbiology - Last 24 Hours (Table) 10/11/23 10:57 Gram Stain - Final Sputum Sputum Culture - Final Anjana albicans 10/09/23 08:05 Blood Culture - Preliminary Blood 10/09/23 08:20 Blood Culture - Preliminary Blood
[2023-10-13 20:14] LABS: Glucose,Whole Blood 197 mg/dL (70-110)
[2023-10-14 06:13] LABS: Glucose,Whole Blood 143 mg/dL (70-110)
[2023-10-14] MEDS ORDERED: ALPRAZolam 0.25 MG TAB PO PRN (06:19)
[2023-10-14] MEDS: ALPRAZolam 1 MG TAB PO STA (06:25)
[2023-10-14 08:33] VITALS: TEMP 97.5
[2023-10-14 09:12] LABS: Glucose,Whole Blood 133 mg/dL (70-110)
[2023-10-14 09:42] LABS: Prothrombin Time 29.8 sec (10.0-12.5)
[2023-10-14 09:47] LABS: ALT 31 U/L (4-49); AST 33 U/L (17-59); African American GFR (CKD) >90 (>60 ml/min/1.73 sqM); Albumin 2.9 g/dL (3.5-5.0); Alkaline Phosphatase 98 U/L (38-126); Anion Gap 5 mmol/L; Blood Urea Nitrogen 56 mg/dL (9-20); Calcium 8.1 mg/dL (8.4-10.2); Carbon Dioxide 36 mmol/L (22-30); Chloride 98 mmol/L (98-107); Glucose 134 mg/dL (74-99); Non-African American GFR(CKD) 80 (>60 ml/min/1.73 sqM); Potassium 3.2 mmol/L (3.5-5.1); Sodium 139 mmol/L (137-145); Total Bilirubin 0.7 mg/dL (0.2-1.3); Total Protein 5.3 g/dL (6.3-8.2)
[2023-10-14 09:51] LABS: Anisocytosis Slight; Basophils % (A) 0 %; Eosinophils % (A) 0 %; HCT 35.2 % (39.0-53.0); HGB 10.5 gm/dL (13.0-17.5); Hypochromasia Marked; Lymphocytes # (A) 0.1 k/uL (1.0-4.8); Lymphocytes % (A) 2 %; MCH 25.9 pg (25.0-35.0); MCHC 29.9 g/dL (31.0-37.0); MCV 86.6 fL (80.0-100.0); Monocytes # (A) 0.2 k/uL (0-1.0); Monocytes % (A) 4 %; Neutrophils # (A) 4.4 k/uL (1.3-7.7); Neutrophils % (A) 93 %; Platelet Count 133 k/uL (150-450); RBC 4.06 m/uL (4.30-5.90); RDW 18.5 % (11.5-15.5); WBC 4.7 k/uL (3.8-10.6)
[2023-10-14] MEDS: 0.9% NACL WITH KCL 20 MEQ/L 1,000 ML IV SCH (11:00)
--- NOTE | 2023-10-14 11:25 | P.PN ---
Subjective Progress Note Date: 10/14/23 HISTORY OF PRESENT ILLNESS: This is an 87-year-old male with a previous medical history signif icant for 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 failure on oxygen at home due to severe COPD with FEV1 of 37% of predicted, chronic atrial fibrillation, thoracic aortic aneurysm, abdominal aortic aneurysm, chronic diastolic heart failure, chronic pulmonary hypertension, patient was recently hospitalized at [facility] back in March 2023 after he was admitted for what appears to be a right lower lobe Pseudomonas pneumonia involving the superior segment of the right lower lobe and it showed like a masslike consolidation back on the CT scan and he was treated and his x-ray showed improvement but never had a bronchoscopy, patient is following regularly with Dr. Zapata as an outpatient. Patient has been feeling ill for the last 4 weeks. Patient was recently admitted for right lower lobe pneumonia, shortness of breath and was complaining of fever chills fatigue tiredness and weight loss. He also had bilateral pleural effusions cardiomegaly and was found to have leukocytosis, coagulopathy with an INR of 9.7. Patient was treated in the hospital he was given IV antibiotic in the form of cefepime, and he was treated with IV Solu-Medrol 60 mg IV push every 6 hours, that was transitioned to oral prednisone as well as oral cefpodoxime that was supposed to be taken on last Monday, however he never did, and the patient ended up coming back to the emergency department at [facility] with increased shortness of breath and increased coughing, he was admitted again with acute exacerbation of COPD/right lower lobe pneumonia, he was started on cefepime, Solu-Medrol, he was switched to prednisone, he was just discharged from the hospital on Monday and he was doing fine up till last night when he became quite confused and delirious, and he was extremely short of breath, he was in atrial fibrillation with rapid ventricle response, his heart rate was around 1 25-1 30, he became quite hypoxemic, he was not able to breathe much, his called 911, he was brought to the emergency department at [facility] he was found to be in A-fib with RVR, his x-ray showed improvement of his right lower lobe pneumonia, he was seen in consultation by pulmonary medicine who will be seen in consultation by cardiology, he will be admitted to the hospital for further evaluation and treatment of noticed his son was at the bedside and he told me that the patient did not take his medication when he went back home this time. 10/09: Patient is sitting up in bed he appears to be quite short of breath today, he did receive quite a bit of IV fluid yesterday, he currently on 75 cc an hour, I will discontinue his IV fluid, started the patient back on his diuretics in the form of Lasix 20 mg IV push every 12 hours, continue on spironolactone 25 mg orally once every day, monitor the patient input and output and daily weight, we will follow-up with the patient very closely, patient underwent CT scan of the chest that showed evidence of marked emphysema changes, with resolution or complete resolution of the right lower lobe infiltrate with the pleural effusion, there is a scar tissue in the left lung, and a stable thoracic aortic aneurysm and abdominal aortic aneurysm, and minimal ascites in the abdomen, patient does appear to be quite short of breath today, continue with Solu-Medrol 60 mg IV push every 6 hours continue cefepime 2 g IV piggyback every 12 hours, monitor the patient very closely. Patient has been seen in consultation by cardiology, as well as pulmonary medicine. 10/10: Patient is sitting at the edge of the bed he continues to be extremely short of breath, he continues to have cough minimal phlegm production, he was able to give a sputum specimen today, continues the patient on cefepime 2 g IV piggyback every 12 hours, he was started yesterday on IV Lasix 20 mg switch again by cardiology to oral Lasix 20 mg once every day along with the spironolactone 25 mg once every day, he was started on Farxiga 5 mg orally once every day continue to be on metoprolol and Cardizem, he has been followed by pulmonary medicine as well as by cardiology, will continue with the same Solu- Medrol at this time as the patient appears to be extremely short of breath, he appears to be medically debilitated, and he may need to go for the subacute rehabilitation when the time, for disposition he is not ready to get out of the hospital at this point. 10/11: Patient is sitting in recliner chair, he appears to be extremely short of breath, he continues to be on 4 L nasal cannula, he is very dyspneic with minimal activity including talking, he has been getting Lasix 20 mg once every day as well as Farxiga along with spironolactone, his heart rate is a bit better, he is to be maintained on Solu-Medrol 60 mg IV push every 6 hours for an other 24 hours, hopefully will try to cut down the next 24 hours, may need to use the BiPAP at night, pulmonary is following, continue IV antibiotic at this time, patient appears to be quite cachectic with severe protein calorie malnutrition added protein shakes twice every day, patient will likely require subacute rehabilitation even though he refuses that. 10/12: Patient is sitting up in chair, he continues to be somewhat short of breath, he continues to be on 4 L nasal cannula, he appears to be weak, he continues to be on Solu-Medrol, nebulized treatment, he continues to increase his protein intake, we will monitor the patient very closely, continue current treatment plan, overall prognosis continues to be guarded, patient is full code as of now, his sputum culture showed Anjana albicans which likely contamination, continue current IV antibiotic, we will try to wean down on his Solu-Medrol to 40 mg IV push every 8 hours. 10/13: Patient has had a bad night yesterday, he has been restless, patient did receive 1 mg of Ativan last night, today in the morning he has been pulling things away, he is thrashing all over the place, appears to be hypoxemic, not able to keep his oxygen down, pulled his BiPAP away, I spoke with his family including his 2 sons and his who came to the bedside, that his prognosis is very poor at this time, and the patient is running out of options at this time, I urged him to consider hospice or comfort care while he is in the hospital because he is not getting any better meanwhile will make the patient no code at this time, continue with aggressive pulmonary toileting with Solu-Medrol 60 mg IV push every 6 hours DuoNeb [id number] Pulmicort [id number] continue oxygen support as well, BiPAP as needed, pulmonary is following, cardiology is following, patient appears to be a bit dehydrated today, I started him on normal saline at 50 cc an hour, with potassium supplementation as well, reevaluate the patient in the next 24 hours but most likely he would benefit from comfort care in the hospital if there is no improvement in his mental status, please avoid benzodiazepine and unless absolutely necessary. REVIEW OF SYSTEMS: Constitutional: Negative for fever, negative for chills, no night sweats. Significant weight change. Positive for weakness, fatigue or lethargy. No daytime sleepiness. HEENT: No headache. No blurred vision or double vision, no loss of vision. No loss of Hearing, no ringing in the ears, no dizziness. No nasal drainage or congestion. No epistaxis. No sore throat. Lungs: positive for shortness of breath, positive for cough, yellow and green sputum production. Reports dyspnea with activity. Cardiovascular: No chest pain, positive for lower extremity edema. positive for palpitations. No paroxysmal nocturnal dyspnea. positive for orthopnea. No lightheadedness or dizziness. No syncopal episodes. Abdominal: Reports abdominal pain. positive for nausea, no vomiting. No diarrhea. No constipation. No bloody or tarry stools reports loss of appetite. Genitourinary: No dysuria, increased frequency, urgency. No urinary retention. Musculoskeletal: No myalgias. positive for muscle weakness, positive for gait dysfunction, no frequent falls. No back pain. No neck pain. Integumentary: No wounds, no lesions. No rash or pruritus. No unusual bruising. No change in hair or nails. Neurologic: No aphasia. No facial droop. positive for change in mentation. No head injury. No headache. No paralysis. No paresthesia. Psychiatric: positive for depression. No anxiety. No mood swings. Endocrine: No abnormal blood sugars. significant weight change. PHYSICAL EXAMINATION: General: 87-year-old male laying down in bed in moderate respiratory distress. HEENT: Head is atraumatic, normocephalic, pupils were equal round reactive to light and recommendation, extraocular muscle movement were intact, sclera nonicteric, conjunctivae were pale, mucous membranes of the mouth are somewhat dry. Neck: Supple, no JVP, normal carotid upstroke bilaterally, no lymphadenopathy. Chest: Decreased breath sounds at the bases, few rhonchi, minimal expiratory wheezes, no chest wall tenderness, positive for intercostal retractions. Heart: First heart sound is normal, second heart sound is normal irregularly irregular there is JULI 2/6 located at the left sternal border Abdomen: Soft, mild tenderness to the left upper quadrant no rebound or guarding, nondistended, positive bowel sounds. Extremities: There is +1 edema no calf tenderness DP +2 bilaterally. Neurologic examination: Patient is awake alert and oriented X 3, cranial nerves II-12 appear grossly intact, muscle power were 3 out of 5 in upper extremities and 2 out of 5 in bilateral lower extremities, deep tendon reflexes normal bilaterally. ASSESSMENT AND PLAN: 1. Acute on chronic hypoxemic respiratory failure due to acute COPD exacerbation with residual right lower lobe pneumonia that appeared better on CT chest at this time with residual left-sided pleural effusion. Continue patient on cefepime 2 g IV piggyback every 12 hours, continue DuoNeb 3 mL nebulization 4 times every day, continue oxygen support, sputum cultures showed Anjana albicans, blood cultures are negative, Solu-Medrol 60 mg IV push every 6 hours, continue patient on metoprolol 50 mg orally twice every day Cardizem CD 180 mg once every day, discontinue diuretics for now. 2. Metabolic encephalopathy likely due to hypoxemic respiratory failure and benzodiazepine use. Avoid using benzodiazepines unless absolutely necessary. 3. Prerenal azotemia due to aggressive diuresis and poor oral intake of fluid. Discontinue diuretics start the patient on IV fluid in the form of normal saline with 20 KCl at 50 cc an hour monitor the patient CMP over the next 24 hours. 4. Atrial fibrillation with rapid ventricular response. Continue patient on metoprolol 50 mg orally twice every day, Cardizem CD 180 mg once every day, continue Coumadin monitor the patient INR over the next 24 hours.. 5. Chronic atrial fibrillation. Maintain the patient on metoprolol 50 mg orally twice every day as well as Cardizem CD 180 mg once every day, continue Coumadin and monitor INR daily. 6. Lactic acidosis. Resolved his lactic acid is back to normal. 7. chronic diastolic heart failure. continue metoprolol 50 mg orally twice every day, continue Cardizem CD 180 mg once every day monitor the patient input and output and daily weight. Patient underwent echocardiogram that showed preserved LV function, with moderate aortic regurgitation as well as moderate to severe mitral regurgitation, continue Farxiga 5 mg once every day monitor input and output and daily weight. 8. Thoracic aortic aneurysm. Has been under the care of cardiology CT angiography is up-to-date. Has been stable at 4.5 cm. 9. Abdominal aortic aneurysm. Stable at 3.8 cm. 10. Bullous pemphigoid. Is stable. 11. DVT prophylaxis. patient did receive 2 mg of coumadin tonight Keep his INR between 2-3. 12. GI prophylaxis. Continue patient on Protonix 40 mg orally once every day. 13. Medical debility. Physical therapy evaluation. 14. Severe protein calorie malnutrition present on admission. Continue with Ensure twice every day, increase protein intake, monitor the patient's symptoms very closely. Physical therapy evaluation. 15. Sarcopenia with significant muscle atrophy and failure to thrive discussed with family for possible palliative care as the patient prognosis is very poor. 16. Patient is no code. Objective - Vital Signs Vital signs: Vital Signs Temp 97.5 F L 10/14/23 08:27 Pulse 100 10/14/23 08:50 Resp 16 10/14/23 09:39 BP 91/57 10/14/23 08:27 Pulse Ox 90 L 10/14/23 09:39 FiO2 40 10/14/23 08:31 Intake & Output 10/13/23 10/14/23 10/14/23 18:59 06:59 18:59 Intake Total 1310 30 Output Total 2950 400 Balance -1640 -400 30 Intake: IV 10 30 Invasive Line 1 10 Invasive Line 2 20 Invasive Line 3 10 Intake, IV Titration 100 Amount Cefepime 2 gm In Sodium 100 Chloride 0.9% 100 ml @ 25 mls/hr IVPB Q12HR [facility] Rx #:[id number] Oral 1200 Output: Urine 2950 400 Other: Voiding Method Bedside Commode Bedside Commode Bedside Commode Urinal Urinal Urinal # Voids 1 1 # Bowel Movements 1 - Labs CBC & Chem 7: 10/14/23 09:18 10/14/23 09:18 Labs: Abnormal Lab Results - Last 24 Hours (Table) 10/13/23 10/13/23 10/13/23 Range/Units 11:19 16:22 20:12 RBC (4.30-5.90) m/uL Hgb (13.0-17.5) gm/dL Hct (39.0-53.0) % MCHC (31.0-37.0) g/dL RDW (11.5-15.5) % Plt Count (150-450) k/uL Lymphocytes # (1.0-4.8) k/uL PT (10.0-12.5) sec INR (<1.2) Potassium (3.5-5.1) mmol/L Carbon Dioxide (22-30) mmol/L BUN (9-20) mg/dL Glucose (74-99) mg/dL POC Glucose (mg/dL) 144 H 199 H 197 H (70-110) mg/dL Calcium (8.4-10.2) mg/dL Total Protein (6.3-8.2) g/dL Albumin (3.5-5.0) g/dL 10/14/23 10/14/23 10/14/23 Range/Units 06:11 09:07 09:18 RBC (4.30-5.90) m/uL Hgb (13.0-17.5) gm/dL Hct (39.0-53.0) % MCHC (31.0-37.0) g/dL RDW (11.5-15.5) % Plt Count (150-450) k/uL Lymphocytes # (1.0-4.8) k/uL PT 29.8 H (10.0-12.5) sec INR 3.0 H (<1.2) Potassium (3.5-5.1) mmol/L Carbon Dioxide (22-30) mmol/L BUN (9-20) mg/dL Glucose (74-99) mg/dL POC Glucose (mg/dL) 143 H 133 H (70-110) mg/dL Calcium (8.4-10.2) mg/dL Total Protein (6.3-8.2) g/dL Albumin (3.5-5.0) g/dL 10/14/23 10/14/23 Range/Units 09:18 09:18 RBC 4.06 L (4.30-5.90) m/uL Hgb 10.5 L (13.0-17.5) gm/dL Hct 35.2 L (39.0-53.0) % MCHC 29.9 L (31.0-37.0) g/dL RDW 18.5 H (11.5-15.5) % Plt Count 133 L (150-450) k/uL Lymphocytes # 0.1 L (1.0-4.8) k/uL PT (10.0-12.5) sec INR (<1.2) Potassium 3.2 L (3.5-5.1) mmol/L Carbon Dioxide 36 H (22-30) mmol/L BUN 56 H (9-20) mg/dL Glucose 134 H (74-99) mg/dL POC Glucose (mg/dL) (70-110) mg/dL Calcium 8.1 L (8.4-10.2) mg/dL Total Protein 5.3 L (6.3-8.2) g/dL Albumin 2.9 L (3.5-5.0) g/dL Microbiology - Last 24 Hours (Table) 10/11/23 10:57 Gram Stain - Final Sputum Sputum Culture - Final Anjana albicans
[2023-10-14 11:36] LABS: Glucose,Whole Blood 134 mg/dL (70-110)
[2023-10-14] MEDS: methylPREDNISolone SOD SUCCI 125 MG/2 ML VIAL IV SCH (12:24)
[2023-10-14] MEDS ORDERED: ACETAMINOPHEN SUPPOSITORY 650 MG SUPP RECTAL PRN (12:28)
[2023-10-14] MEDS: MORPHINE SULFATE 2 MG/ML SYRINGE IV PRN (12:39)
[2023-10-14] MEDS: MORPHINE SULFATE 4 MG/ML SYRINGE IV PRN (17:58)
--- NOTE | 2023-10-14 18:58 | P.PN ---
Subjective Progress Note Date: 10/14/23 I am seeing this patient in the emergency department for worsening shortness of breath. The patient is known to me. The patient has been treated for necrotizing right lung pneumonia and the patient had a prolonged hospitalization back in August 2023. The patient was discharged home to be readmitted on 10/04/2023 for abdominal pain and the patient was discharged home on 10/07/[address] scan of the abdomen that was done during the prior hospitalization showed no evidence of any acute abnormalities. The patient was asked to continue Trelegy Ellipta as maintenance, prednisone burst taper, and completed a course of Vantin on outpatient basis as directed. Following his discharge, the patient continued to have difficulties in breathing. He came back to the emergency department and he stated that he was still coughing yellowish sputum. Noted overall, his cough and congestion has been progressively improving over the past 6 weeks. At the time of my evaluation in the emergency, the patient had no major respiratory distress. He was however found to be in atrial fibrillation with rapid ventricu lar response. Accordingly, the patient was placed on oral Cardizem 180 mg p.o. daily and metoprolol 50 mg p.o. twice a day and he takes long-term anticoagulation with warfarin. His INR was at 1.6. I also reviewed the chest x-ray that was done in the emergency. There is obvious COPD in the background. There is also a right lung consolidation which has been gradually improving based on the series of chest x-ray that was done during multiple hospitalizations. There is some residual perihilar consolidation. Note that his most recent CAT scan of the chest that was done on 09/21/2023 showed a dense focal consolidation in the superior segment of the right lower lobe extending to the hilum in addition to his extensive COPD. His blood work from today shows a WBC count 13.7 with a hemoglobin 9.3 and a platelet count of 139. BUN 38 with a creatinine of 0.6 and a sodium levels at 138. Lactic acid level was at 4.1. proBNP level was 1190, LFTs were essentially within normal limits. His most recent sputum analysis from 09/21/2023 was positive for Serratia marcescens. Previous sputum analysis from 03/21/2023 was positive for Pseudomonas aeruginosa. On 10/10/2023, patient is being seen for a follow-up. Breathing is still labored. He has very limited pulmonary reserve as the patient has advanced COPD. In regards to the right lung pneumonia, the patient had a follow-up CAT scan of the chest and this was reviewed and compared to the earlier images. As mentioned, the patient has marked emphysematous changes bilaterally and there is reduction in the right lung pulmonary consolidation and effusion. There are some chronic stable infiltrates consistent with interstitial scarring and fibrosis on the left. 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 Cultures are to be sent. Lactic acid level is down to 3.7. Remains in atrial fibrillation. INR today is at 2.1. IV cefepime was restarted. Rest of medications remain unchanged. He remains on O2 at 4 L with a pulse ox of 94%. On 10/11/2023, I am seeing the patient for a follow-up. Remains on 40 Suboxone by nasal cannula. No new complaints otherwise for now. Remains on IV cefepime. PT/INR is therapeutic. Awaiting follow-up sputum Gram stain and culture. Sodium is at 137, BUN is at 35 with a creatinine of 0.7 and potassium is at 3.8. The white cell count 13.4 with a hemoglobin of 10.1. No other significant events overnight. The patient remains on IV Solu-Medrol 60 mg every 6 hours and the patient is on DuoNeb updrafts. Remains on torsemide 20 mg p.o. daily. The patient is on oxygen 4 L/min nasal cannula. No altered mentation. He continues to be in atrial fibrillation and the patient is maintained on a combination of metoprolol 50 mg twice a day, Cardizem CD 80 mg p.o. daily anticoagulation with warfarin with an INR of 2.9. 10/12/2023, patient is being seen for a follow-up. Patient remains on 4 L of oxygen by nasal cannula with a pulse ox of 91%. No specific complaints for today. We were able to collect another sputum sample and sputum cultures was positive for Anjana. Remains on IV cefepime. Remains on bronchodilators. Remains on IV Solu-Medrol 60 mg every 6 hours. Able to communicate. No angina. No palpitations. No chest pain. His heart rate is under better control. The patient has no signs of any significant fluid overload. He remains quite cachectic and severely malnourished and he has protein calorie malnutrition and he was given protein shakes twice a day. Today patient 10/13/2023, seen the patient for a follow-up. Essentially the stamina she is compared to yesterday. Sputum sample was collected showed Anjana albicans. Remains on bronchodilators. Remains on steroids. Remains on IV cefepime. Profoundly weak and debilitated. Has a congested cough although amount of sputum production is less. INR is therapeutic at 2.5. White cell count of 10.5, BUN is 41 with a creatinine of 0.9. No other significant events overnight and the patient remains on 40 Suboxone by nasal cannula. On today's evaluation of 10/14/2023, the patient had significant decline in his respiratory status. The patient was seen earlier this morning and the patient was struggling with his breathing and he has become progressively more lethargic and obtunded. At that point, he was placed on a BiPAP pressure of 10 over 5 cm of water and was given also some Xanax for increased anxiety. Condition progressively got worse and the patient subsequently went and respiratory failure, nonresponsive to BiPAP. Family arrived to the scene. Had a lengthy discussion with the family and they were very understanding of his current situation especially with his poor baseline performance and functional status. He is a DNR/DNI CODE STATUS. On his blood work, his INR was at 3, BUN was 56 with a creatinine of 0.8 and sodium is at 138, WC count is 4.7 hematomata and a platelet count of 133. Recommend that end-of-life care/hospice for this patient. Objective - Vital Signs Vital signs: Vital Signs Temp 97.5 F L 10/14/23 08:27 Pulse 104 H 10/14/23 18:04 Resp 14 10/14/23 18:04 BP 91/57 10/14/23 08:27 Pulse Ox 89 L 10/14/23 11:47 FiO2 40 10/14/23 08:31 Intake & Output 10/13/23 10/14/23 10/14/23 18:59 06:59 18:59 Intake Total 1310 480 Output Total 2950 400 425 Balance -1640 -400 55 Intake: IV 10 30 Invasive Line 1 10 Invasive Line 2 20 Invasive Line 3 10 Intake, IV Titration 100 450 Amount 0.9% NaCl with KCl 20 Meq 350 /l 1,000 ml @ 50 mls/hr IV .Q20H AGUSTÍN Rx#: [id number] Cefepime 2 gm In Sodium 100 100 Chloride 0.9% 100 ml @ 25 mls/hr IVPB Q12HR AGUSTÍN Rx #:[id number] Oral 1200 Output: Urine 2950 400 425 Uretheral ([place]) 425 Other: Voiding Method Bedside Commode Bedside Commode Indwelling Catheter Urinal Urinal # Voids 1 1 # Bowel Movements 1 - Exam GENERAL EXAM: Alert, frail 87-year-old white male, comfortable in no apparent distress. The patient is currently BiPAP, lethargic, quite obtunded, respiratory failure HEAD: Normocephalic and atraumatic EYES: Normal reaction of pupils, equal size. NOSE: Clear with pink turbinates. THROAT: No erythema or exudates. NECK: No masses, no JVD. CHEST: No chest wall deformity. LUNGS: Equal air entry with markedly diminished lung sounds throughout. No crackles, wheezes, rhonchi. Using accessory muscle of breathing. CVS: S1 and S2 normal with no audible murmur, irregular rhythm. No extra heart sounds ABDOMEN: No hepatosplenomegaly, active bowel sounds, no guarding or rigidity. SPINE: No scoliosis or deformity SKIN: No rashes CENTRAL NERVOUS SYSTEM: Diminished level of consciousness, likely secondary to hypercapnic respiratory failure. EXTREMITIES: There bilateral lower extremity pitting edema. No clubbing, or cyanosis. Peripheral pulses are intact - Labs CBC & Chem 7: 10/14/23 09:18 10/14/23 09:18 Labs: Abnormal Lab Results - Last 24 Hours (Table) 10/13/23 10/14/23 10/14/23 Range/Units 20:12 06:11 09:07 RBC (4.30-5.90) m/uL Hgb (13.0-17.5) gm/dL Hct (39.0-53.0) % MCHC (31.0-37.0) g/dL RDW (11.5-15.5) % Plt Count (150-450) k/uL Lymphocytes # (1.0-4.8) k/uL PT (10.0-12.5) sec INR (<1.2) Potassium (3.5-5.1) mmol/L Carbon Dioxide (22-30) mmol/L BUN (9-20) mg/dL Glucose (74-99) mg/dL POC Glucose (mg/dL) 197 H 143 H 133 H (70-110) mg/dL Calcium (8.4-10.2) mg/dL Total Protein (6.3-8.2) g/dL Albumin (3.5-5.0) g/dL 10/14/23 10/14/23 10/14/23 Range/Units 09:18 09:18 09:18 RBC 4.06 L (4.30-5.90) m/uL Hgb 10.5 L (13.0-17.5) gm/dL Hct 35.2 L (39.0-53.0) % MCHC 29.9 L (31.0-37.0) g/dL RDW 18.5 H (11.5-15.5) % Plt Count 133 L (150-450) k/uL Lymphocytes # 0.1 L (1.0-4.8) k/uL PT 29.8 H (10.0-12.5) sec INR 3.0 H (<1.2) Potassium 3.2 L (3.5-5.1) mmol/L Carbon Dioxide 36 H (22-30) mmol/L BUN 56 H (9-20) mg/dL Glucose 134 H (74-99) mg/dL POC Glucose (mg/dL) (70-110) mg/dL Calcium 8.1 L (8.4-10.2) mg/dL Total Protein 5.3 L (6.3-8.2) g/dL Albumin 2.9 L (3.5-5.0) g/dL 10/14/23 Range/Units 11:35 RBC (4.30-5.90) m/uL Hgb (13.0-17.5) gm/dL Hct (39.0-53.0) % MCHC (31.0-37.0) g/dL RDW (11.5-15.5) % Plt Count (150-450) k/uL Lymphocytes # (1.0-4.8) k/uL PT (10.0-12.5) sec INR (<1.2) Potassium (3.5-5.1) mmol/L Carbon Dioxide (22-30) mmol/L BUN (9-20) mg/dL Glucose (74-99) mg/dL POC Glucose (mg/dL) 134 H (70-110) mg/dL Calcium (8.4-10.2) mg/dL Total Protein (6.3-8.2) g/dL Albumin (3.5-5.0) g/dL Microbiology - Last 24 Hours (Table) 10/09/23 08:05 Blood Culture - Final Blood 10/09/23 08:20 Blood Culture - Final Blood Assessment and Plan Plan: End-stage COPD with respiratory failure, currently on BiPAP Diminished level of consciousness acute respiratory failure, likely hypercapnic respiratory failure. Right-sided necrotizing pneumonia. I reviewed the series of CAT scans were done and the patient from December 2022, March 2023 and the most recent CAT scan of the chest that was done on 09/21/2023. It seems that the patient developed a cavitating consolidation of the right lower lobe back in March 2023. At that time, the sputum was positive for Pseudomonas aeruginosa. This was treated in the hospital with antibiotics. Subsequent CAT scan of the chest was done and again that showed diffuse emphysematous changes along with scarring and bronchiectasis. The patient has also peribronchial thickening consistent with COPD. There was a patchy area of consolidation/atelectasis in the right lower lobe and some irregular opacities in the left upper lobe and the left lower lobe associated with atelectasis. Patient is currently on IV cefepime. Procalcitonin level is at 0.11. Sputum culture showed Serratia marcescens. Repeat chest x-ray shows stable/ongoing improvement right lung/perihilar conso lidation/pneumonia. Repeat CAT scan of the chest on 10/09/2023 shows improvement in the right lung consolidation with some limited interstitial scarring in the left lung with some minimal residual changes on the right with advanced background emphysema. Currently on IV cefepime. Unintentional weight loss, reportedly lost 30 pounds over a 6 to 9-month timeframe. History of hemoptysis, recovered History of left lower lung nodule, followed up outpatient Chronic ongoing tobacco dependence, still smokes 2 to 3 cigarettes every couple days. Severe chronic obstructive pulmonary disease, with an FEV1 37% of predicted Chronic hypoxemic respiratory failure, secondary to above, normally maintained on 4 L/min nasal cannula while at home. 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
[2023-10-15] MEDS: MORPHINE SULFATE (100 MG/2 ML) 100 MG in SODIUM CHLORIDE 0.9% 100 ML IV PRN (04:09)
[2023-10-15] MEDS: LORazepam 2 MG/ML INJ IV PRN (04:21)
--- NOTE | 2023-10-15 12:23 | P.PN ---
Subjective Progress Note Date: 10/15/23 I am seeing this patient in the emergency department for worsening shortness of breath. The patient is known to me. The patient has been treated for necrotizing right lung pneumonia and the patient had a prolonged hospitalization back in August 2023. The patient was discharged home to be readmitted on 10/04/2023 for abdominal pain and the patient was discharged home on 10/07/[address] scan of the abdomen that was done during the prior hospitalization showed no evidence of any acute abnormalities. The patient was asked to continue Trelegy Ellipta as maintenance, prednisone burst taper, and completed a course of Vantin on outpatient basis as directed. Following his discharge, the patient continued to have difficulties in breathing. He came back to the emergency department and he stated that he was still coughing yellowish sputum. Noted overall, his cough and congestion has been progressively improving over the past 6 weeks. At the time of my evaluation in the emergency, the patient had no major respiratory distress. He was however found to be in atrial fibrillation with rapid ventricu lar response. Accordingly, the patient was placed on oral Cardizem 180 mg p.o. daily and metoprolol 50 mg p.o. twice a day and he takes long-term anticoagulation with warfarin. His INR was at 1.6. I also reviewed the chest x-ray that was done in the emergency. There is obvious COPD in the background. There is also a right lung consolidation which has been gradually improving based on the series of chest x-ray that was done during multiple hospitalizations. There is some residual perihilar consolidation. Note that his most recent CAT scan of the chest that was done on 09/21/2023 showed a dense focal consolidation in the superior segment of the right lower lobe extending to the hilum in addition to his extensive COPD. His blood work from today shows a WBC count 13.7 with a hemoglobin 9.3 and a platelet count of 139. BUN 38 with a creatinine of 0.6 and a sodium levels at 138. Lactic acid level was at 4.1. proBNP level was 1190, LFTs were essentially within normal limits. His most recent sputum analysis from 09/21/2023 was positive for Serratia marcescens. Previous sputum analysis from 03/21/2023 was positive for Pseudomonas aeruginosa. On 10/10/2023, patient is being seen for a follow-up. Breathing is still labored. He has very limited pulmonary reserve as the patient has advanced COPD. In regards to the right lung pneumonia, the patient had a follow-up CAT scan of the chest and this was reviewed and compared to the earlier images. As mentioned, the patient has marked emphysematous changes bilaterally and there is reduction in the right lung pulmonary consolidation and effusion. There are some chronic stable infiltrates consistent with interstitial scarring and fibrosis on the left. 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 Cultures are to be sent. Lactic acid level is down to 3.7. Remains in atrial fibrillation. INR today is at 2.1. IV cefepime was restarted. Rest of medications remain unchanged. He remains on O2 at 4 L with a pulse ox of 94%. On 10/11/2023, I am seeing the patient for a follow-up. Remains on 40 Suboxone by nasal cannula. No new complaints otherwise for now. Remains on IV cefepime. PT/INR is therapeutic. Awaiting follow-up sputum Gram stain and culture. Sodium is at 137, BUN is at 35 with a creatinine of 0.7 and potassium is at 3.8. The white cell count 13.4 with a hemoglobin of 10.1. No other significant events overnight. The patient remains on IV Solu-Medrol 60 mg every 6 hours and the patient is on DuoNeb updrafts. Remains on torsemide 20 mg p.o. daily. The patient is on oxygen 4 L/min nasal cannula. No altered mentation. He continues to be in atrial fibrillation and the patient is maintained on a combination of metoprolol 50 mg twice a day, Cardizem CD 80 mg p.o. daily anticoagulation with warfarin with an INR of 2.9. 10/12/2023, patient is being seen for a follow-up. Patient remains on 4 L of oxygen by nasal cannula with a pulse ox of 91%. No specific complaints for today. We were able to collect another sputum sample and sputum cultures was positive for Anjana. Remains on IV cefepime. Remains on bronchodilators. Remains on IV Solu-Medrol 60 mg every 6 hours. Able to communicate. No angina. No palpitations. No chest pain. His heart rate is under better control. The patient has no signs of any significant fluid overload. He remains quite cachectic and severely malnourished and he has protein calorie malnutrition and he was given protein shakes twice a day. Today patient 10/13/2023, seen the patient for a follow-up. Essentially the stamina she is compared to yesterday. Sputum sample was collected showed Anjana albicans. Remains on bronchodilators. Remains on steroids. Remains on IV cefepime. Profoundly weak and debilitated. Has a congested cough although amount of sputum production is less. INR is therapeutic at 2.5. White cell count of 10.5, BUN is 41 with a creatinine of 0.9. No other significant events overnight and the patient remains on 40 Suboxone by nasal cannula. On today's evaluation of 10/14/2023, the patient had significant decline in his respiratory status. The patient was seen earlier this morning and the patient was struggling with his breathing and he has become progressively more lethargic and obtunded. At that point, he was placed on a BiPAP pressure of 10 over 5 cm of water and was given also some Xanax for increased anxiety. Condition progressively got worse and the patient subsequently went and respiratory failure, nonresponsive to BiPAP. Family arrived to the scene. Had a lengthy discussion with the family and they were very understanding of his current situation especially with his poor baseline performance and functional status. He is a DNR/DNI CODE STATUS. On his blood work, his INR was at 3, BUN was 56 with a creatinine of 0.8 and sodium is at 138, WC count is 4.7 hematomata and a platelet count of 133. Recommend that end-of-life care/hospice for this patient. 10/15/2023, the patient is being seen for a follow-up. The patient is resting comfortably in bed on a morphine drip which is currently running at 7 mg an hour. Family is at the bedside. He is undergoing end-of-life care as the patient had significant advanced COPD that was further complicated by respiratory failure. No labs are available from today. He is breathing is quite shallow. No significant distress. No agitation. Mental status is quite diminished and the patient is unresponsive. Objective - Vital Signs Vital signs: Vital Signs Temp 97.5 F L 10/14/23 08:27 Pulse 136 H 10/15/23 09:15 Resp 8 L 10/15/23 09:15 BP 91/57 10/14/23 08:27 Pulse Ox 89 L 10/14/23 11:47 FiO2 40 10/14/23 08:31 Intake & Output 10/14/23 10/15/23 10/15/23 18:59 06:59 18:59 Intake Total 485 7.599 24.686 Output Total 425 Balance 60 7.599 24.686 Intake: IV 35 5 Invasive Line 2 25 5 Invasive Line 3 10 Intake, IV Titration 450 7.599 19.686 Amount 0.9% NaCl with KCl 20 Meq 350 /l 1,000 ml @ 50 mls/hr IV .Q20H [facility] Rx#: [id number] Cefepime 2 gm In Sodium 100 Chloride 0.9% 100 ml @ 25 mls/hr IVPB Q12HR [facility] Rx #:[id number] Morphine Sulfate (100 mg/ 7.599 19.686 2 ml) 100 mg In Sodium Chloride 0.9% 100 ml @ 1 MG/HR 1.02 mls/hr IV . Q24H PRN Rx#:[id number] Output: Urine 425 Uretheral ([place]) 425 Other: Voiding Method Indwelling Catheter Indwelling Catheter Indwelling Catheter - Exam GENERAL EXAM: Alert, frail 87-year-old white male, unresponsive on a morphine drip HEAD: Normocephalic and atraumatic EYES: Normal reaction of pupils, equal size. NOSE: Clear with pink turbinates. THROAT: No erythema or exudates. NECK: No masses, no JVD. CHEST: No chest wall deformity. LUNGS: Equal air entry with markedly diminished lung sounds throughout. No crackles, wheezes, rhonchi. Using accessory muscle of breathing. CVS: S1 and S2 normal with no audible murmur, irregular rhythm. No extra heart sounds ABDOMEN: No hepatosplenomegaly, active bowel sounds, no guarding or rigidity. SPINE: No scoliosis or deformity SKIN: No rashes CENTRAL NERVOUS SYSTEM: Diminished level of consciousness, likely secondary to hypercapnic respiratory failure. EXTREMITIES: There bilateral lower extremity pitting edema. No clubbing, or cyanosis. Peripheral pulses are intact - Labs CBC & Chem 7: 10/14/23 09:18 10/14/23 09:18 Labs: Abnormal Lab Results - Last 24 Hours (Table) 06/15/24 06/15/24 06/15/24 Range/Units 09:18 09:18 11:35 RBC 4.06 L (4.30-5.90) m/uL Hgb 10.5 L (13.0-17.5) gm/dL Hct 35.2 L (39.0-53.0) % MCHC 29.9 L (31.0-37.0) g/dL RDW 18.5 H (11.5-15.5) % Plt Count 133 L (150-450) k/uL Lymphocytes # 0.1 L (1.0-4.8) k/uL Potassium 3.2 L (3.5-5.1) mmol/L Carbon Dioxide 36 H (22-30) mmol/L BUN 56 H (9-20) mg/dL Glucose 134 H (74-99) mg/dL POC Glucose (mg/dL) 134 H (70-110) mg/dL Calcium 8.1 L (8.4-10.2) mg/dL Total Protein 5.3 L (6.3-8.2) g/dL Albumin 2.9 L (3.5-5.0) g/dL Microbiology - Last 24 Hours (Table) 10/09/23 08:05 Blood Culture - Final Blood 10/09/23 08:20 Blood Culture - Final Blood Assessment and Plan Plan: End-stage COPD with respiratory failure, currently undergoing end-of-life care on a morphine drip running at 7 mg an hour. Diminished level of consciousness acute respiratory failure, likely hypercapnic respiratory failure and the patient is also on morphine drip. Right-sided necrotizing pneumonia. I reviewed the series of CAT scans were done and the patient from December 2022, March 2023 and the most recent CAT scan of the chest that was done on 09/21/2023. It seems that the patient developed a cavitating consolidation of the right lower lobe back in March 2023. At that time, the sputum was positive for Pseudomonas aeruginosa. This was treated in the hospital with antibiotics. Subsequent CAT scan of the chest was done and again that showed diffuse emphysematous changes along with scarring and bronchiectasis. The patient has also peribronchial thickening consistent with COPD. There was a patchy area of consolidation/atelectasis in the right lower lobe and some irregular opacities in the left upper lobe and the left lower lobe associated with atelectasis. Patient is currently on IV cefepime. Procalcitonin level is at 0.11. Sputum culture showed Serratia marcescens. Repeat chest x-ray shows stable/ongoing improvement right lung/perihilar consolidation/pneumonia. Repeat CAT scan of the chest on 10/09/2023 shows improvement in the right lung consolidation with some limited interstitial scarring in the left lung with some minimal residual changes on the right with advanced background emphysema. Unintentional weight loss, reportedly lost 30 pounds over a 6 to 9-month timeframe. History of hemoptysis, recovered History of left lower lung nodule, followed up outpatient Chronic ongoing tobacco dependence, still smokes 2 to 3 cigarettes every couple days. Severe chronic obstructive pulmonary disease, with an FEV1 37% of predicted Chronic hypoxemic respiratory failure, secondary to above, normally maintained on 4 L/min nasal cannula while at home. Acute leukocytosis, stable Atrial fibrillation with rapid ventricular rate, currently on a combination of metoprolol and Cardizem and the patient is also on long-term anticoagulation with warfarin, echocardiogram shows a preserved LV function with mild to moderate mitral regurgitation Supratherapeutic INR, recovered and INR is therapeutic at 2.9 History of thoracic aortic aneurysm, stable on repeated CAT scans Bilateral lower extremity edema, stable Plan: Respiratory failure, failed BiPAP therapy, currently unresponsive, undergoing end-of-life care on morphine drip Comfortable Comfort measures only Family is at bedside
--- NOTE | 2023-10-15 12:29 | P.PN ---
Subjective Progress Note Date: 10/15/23 HISTORY OF PRESENT ILLNESS: This is an 87-year-old male with a previous medical history signif icant for 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 failure on oxygen at home due to severe COPD with FEV1 of 37% of predicted, chronic atrial fibrillation, thoracic aortic aneurysm, abdominal aortic aneurysm, chronic diastolic heart failure, chronic pulmonary hypertension, patient was recently hospitalized at [facility] back in March 2023 after he was admitted for what appears to be a right lower lobe Pseudomonas pneumonia involving the superior segment of the right lower lobe and it showed like a masslike consolidation back on the CT scan and he was treated and his x-ray showed improvement but never had a bronchoscopy, patient is following regularly with Dr. Zapata as an outpatient. Patient has been feeling ill for the last 4 weeks. Patient was recently admitted for right lower lobe pneumonia, shortness of breath and was complaining of fever chills fatigue tiredness and weight loss. He also had bilateral pleural effusions cardiomegaly and was found to have leukocytosis, coagulopathy with an INR of 9.7. Patient was treated in the hospital he was given IV antibiotic in the form of cefepime, and he was treated with IV Solu-Medrol 60 mg IV push every 6 hours, that was transitioned to oral prednisone as well as oral cefpodoxime that was supposed to be taken on last Monday, however he never did, and the patient ended up coming back to the emergency department at [facility] with increased shortness of breath and increased coughing, he was admitted again with acute exacerbation of COPD/right lower lobe pneumonia, he was started on cefepime, Solu-Medrol, he was switched to prednisone, he was just discharged from the hospital on Monday and he was doing fine up till last night when he became quite confused and delirious, and he was extremely short of breath, he was in atrial fibrillation with rapid ventricle response, his heart rate was around 1 25-1 30, he became quite hypoxemic, he was not able to breathe much, his called 911, he was brought to the emergency department at [facility] he was found to be in A-fib with RVR, his x-ray showed improvement of his right lower lobe pneumonia, he was seen in consultation by pulmonary medicine who will be seen in consultation by cardiology, he will be admitted to the hospital for further evaluation and treatment of noticed his son was at the bedside and he told me that the patient did not take his medication when he went back home this time. 10/09: Patient is sitting up in bed he appears to be quite short of breath today, he did receive quite a bit of IV fluid yesterday, he currently on 75 cc an hour, I will discontinue his IV fluid, started the patient back on his diuretics in the form of Lasix 20 mg IV push every 12 hours, continue on spironolactone 25 mg orally once every day, monitor the patient input and output and daily weight, we will follow-up with the patient very closely, patient underwent CT scan of the chest that showed evidence of marked emphysema changes, with resolution or complete resolution of the right lower lobe infiltrate with the pleural effusion, there is a scar tissue in the left lung, and a stable thoracic aortic aneurysm and abdominal aortic aneurysm, and minimal ascites in the abdomen, patient does appear to be quite short of breath today, continue with Solu-Medrol 60 mg IV push every 6 hours continue cefepime 2 g IV piggyback every 12 hours, monitor the patient very closely. Patient has been seen in consultation by cardiology, as well as pulmonary medicine. 10/10: Patient is sitting at the edge of the bed he continues to be extremely short of breath, he continues to have cough minimal phlegm production, he was able to give a sputum specimen today, continues the patient on cefepime 2 g IV piggyback every 12 hours, he was started yesterday on IV Lasix 20 mg switch again by cardiology to oral Lasix 20 mg once every day along with the spironolactone 25 mg once every day, he was started on Farxiga 5 mg orally once every day continue to be on metoprolol and Cardizem, he has been followed by pulmonary medicine as well as by cardiology, will continue with the same Solu- Medrol at this time as the patient appears to be extremely short of breath, he appears to be medically debilitated, and he may need to go for the subacute rehabilitation when the time, for disposition he is not ready to get out of the hospital at this point. 10/11: Patient is sitting in recliner chair, he appears to be extremely short of breath, he continues to be on 4 L nasal cannula, he is very dyspneic with minimal activity including talking, he has been getting Lasix 20 mg once every day as well as Farxiga along with spironolactone, his heart rate is a bit better, he is to be maintained on Solu-Medrol 60 mg IV push every 6 hours for an other 24 hours, hopefully will try to cut down the next 24 hours, may need to use the BiPAP at night, pulmonary is following, continue IV antibiotic at this time, patient appears to be quite cachectic with severe protein calorie malnutrition added protein shakes twice every day, patient will likely require subacute rehabilitation even though he refuses that. 10/12: Patient is sitting up in chair, he continues to be somewhat short of breath, he continues to be on 4 L nasal cannula, he appears to be weak, he continues to be on Solu-Medrol, nebulized treatment, he continues to increase his protein intake, we will monitor the patient very closely, continue current treatment plan, overall prognosis continues to be guarded, patient is full code as of now, his sputum culture showed Anjana albicans which likely contamination, continue current IV antibiotic, we will try to wean down on his Solu-Medrol to 40 mg IV push every 8 hours. 10/13: Patient has had a bad night yesterday, he has been restless, patient did receive 1 mg of Ativan last night, today in the morning he has been pulling things away, he is thrashing all over the place, appears to be hypoxemic, not able to keep his oxygen down, pulled his BiPAP away, I spoke with his family including his 2 sons and his who came to the bedside, that his prognosis is very poor at this time, and the patient is running out of options at this time, I urged him to consider hospice or comfort care while he is in the hospital because he is not getting any better meanwhile will make the patient no code at this time, continue with aggressive pulmonary toileting with Solu-Medrol 60 mg IV push every 6 hours DuoNeb [id number] Pulmicort [id number] continue oxygen support as well, BiPAP as needed, pulmonary is following, cardiology is following, patient appears to be a bit dehydrated today, I started him on normal saline at 50 cc an hour, with potassium supplementation as well, reevaluate the patient in the next 24 hours but most likely he would benefit from comfort care in the hospital if there is no improvement in his mental status, please avoid benzodiazepine and unless absolutely necessary. 10/14: Patient is laying down in bed he is currently on morphine drip at 7 mg/h, he is very rested, his family were at the bedside, is eminent, continue with comfort care at this time, patient family were counseled about and dying and they were ready as the patient suffering has come to an end. REVIEW OF SYSTEMS: Patient is comatose on morphine drip. PHYSICAL EXAMINATION: General: 87-year-old male laying down in bed in moderate respiratory distress. HEENT: Head is atraumatic, normocephalic, sclera nonicteric, conjunctivae were pale, mucous membranes of the mouth are somewhat dry. Neck: Supple, no JVP, normal carotid upstroke bilaterally, no lymphadenopathy. Chest: Decreased breath sounds at the bases, few rhonchi, minimal expiratory wheezes, no chest wall tenderness, positive for intercostal retractions. Heart: First heart sound is normal, second heart sound is normal irregularly irregular there is JULI 2/6 located at the left sternal border Abdomen: Soft, mild tenderness to the left upper quadrant no rebound or guarding, nondistended, positive bowel sounds. Extremities: There is +1 edema no calf tenderness DP +2 bilaterally. Neurologic examination: Patient is comatose. ASSESSMENT AND PLAN: 1. Acute on chronic hypoxemic respiratory failure due to acute COPD exacerbation with residual right lower lobe pneumonia that appeared better on CT chest at this time with residual left-sided pleural effusion. 2. Metabolic encephalopathy likely due to hypoxemic respiratory failure and benzodiazepine use. 3. Prerenal azotemia due to aggressive diuresis and poor oral intake of fluid. 4. Atrial fibrillation with rapid ventricular response. 5. Chronic atrial fibrillation. 6. Lactic acidosis. 7. chronic diastolic heart failure. 8. Thoracic aortic aneurysm. 9. Abdominal aortic aneurysm. 10. Bullous pemphigoid. 11. Sarcopenia with significant muscle atrophy and failure to thrive 12. Continue current palliative/comfort care is eminent. Objective - Vital Signs Vital signs: Vital Signs Temp 97.5 F L 10/14/23 08:27 Pulse 133 H 10/15/23 11:25 Resp 11 L 10/15/23 11:25 BP 91/57 10/14/23 08:27 Pulse Ox 89 L 10/14/23 11:47 FiO2 40 10/14/23 08:31 Intake & Output 10/14/23 10/15/23 10/15/23 18:59 06:59 18:59 Intake Total 485 7.599 40.156 Output Total 425 Balance 60 7.599 40.156 Intake: IV 35 5 Invasive Line 2 25 5 Invasive Line 3 10 Intake, IV Titration 450 7.599 35.156 Amount 0.9% NaCl with KCl 20 Meq 350 /l 1,000 ml @ 50 mls/hr IV .Q20H [facility] Rx#: [id number] Cefepime 2 gm In Sodium 100 Chloride 0.9% 100 ml @ 25 mls/hr IVPB Q12HR [facility] Rx #:[id number] Morphine Sulfate (100 mg/ 7.599 35.156 2 ml) 100 mg In Sodium Chloride 0.9% 100 ml @ 1 MG/HR 1.02 mls/hr IV . Q24H PRN Rx#:[id number] Output: Urine 425 Uretheral ([place]) 425 Other: Voiding Method Indwelling Catheter Indwelling Catheter Indwelling Catheter - Labs CBC & Chem 7: 10/14/23 09:18 10/14/23 09:18 Labs: Microbiology - Last 24 Hours (Table) 10/09/23 08:05 Blood Culture - Final Blood 10/09/23 08:20 Blood Culture - Final Blood
[2023-10-15 13:22] VITALS: BP 0/0; PULSE 0; RESP 0
--- NOTE | 2023-10-15 13:29 | P.DS ---
Providers Date of admission: 10/09/23 10:21 Expected date of discharge: 10/15/23 Attending physician: Eugene Todd Consults: 10/09/23 10:20 Consult Physician Routine Consulting Provider: Forrest Palm Consult Reason/Comments: copd/resp failure on bipap Do you want consulting provider notified?: Yes Primary care physician: Eugene Todd Hospital Course: HISTORY OF PRESENT ILLNESS: This is an 87-year-old male with a previous medical history significant for 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 failure on oxygen at home due to severe COPD with FEV1 of 37% of predicted, chronic atrial fibrillation, thoracic aortic aneurysm, abdominal aortic aneurysm, chronic diastolic heart failure, chronic pulmonary hypertension, patient was recently hospitalized at [facility] back in March 2023 after he was admitted for what appears to be a right lower lobe Pseudomonas pneumonia involving the superior segment of the right lower lobe and it showed like a masslike consolidation back on the CT scan and he was treated and his x- ray showed improvement but never had a bronchoscopy, patient is following regularly with Dr. Zapata as an outpatient. Patient has been feeling ill for the last 4 weeks. Patient was recently admitted for right lower lobe pneumonia, shortness of breath and was complaining of fever chills fatigue tiredness and weight loss. He also had bilateral pleural effusions cardiomegaly and was found to have leukocytosis, coagulopathy with an INR of 9.7. Patient was treated in the hospital he was given IV antibiotic in the form of cefepime, and he was treated with IV Solu-Medrol 60 mg IV push every 6 hours, that was transitioned to oral prednisone as well as oral cefpodoxime that was supposed to be taken on last Monday, however he never did, and the patient ended up coming back to the emergency department at [facility] with increased shortness of breath and increased coughing, he was admitted again with acute exacerbation of COPD/right lower lobe pneumonia, he was started on cefepime, Solu-Medrol, he was switched to prednisone, he was just discharged from the hospital on Monday and he was doing fine up till last night when he became quite confused and delirious, and he was extremely short of breath, he was in atrial fibrillation with rapid ventricle response, his heart rate was around 1 25-1 30, he became quite hypoxemic, he was not able to breathe much, his called 911, he was brought to the emergency department at [facility] he was found to be in A-fib with RVR, his x-ray showed improvement of his right lower lobe pneumonia, he was seen in consultation by pulmonary medicine who will be seen in consultation by cardiology, he will be admitted to the hospital for further evaluation and treatment of noticed his son was at the bedside and he told me that the patient did not take his medication when he went back home this time. 10/09: Patient is sitting up in bed he appears to be quite short of breath today, he did receive quite a bit of IV fluid yesterday, he currently on 75 cc an hour, I will discontinue his IV fluid, started the patient back on his diuretics in the form of Lasix 20 mg IV push every 12 hours, continue on spironolactone 25 mg orally once every day, monitor the patient input and output and daily weight, we will follow-up with the patient very closely, patient underwent CT scan of the chest that showed evidence of marked emphysema changes, with resolution or complete resolution of the right lower lobe infiltrate with the pleural effusion, there is a scar tissue in the left lung, and a stable thoracic aortic aneurysm and abdominal aortic aneurysm, and minimal ascites in the abdomen, patient does appear to be quite short of breath today, continue with Solu-Medrol 60 mg IV push every 6 hours continue cefepime 2 g IV piggyback every 12 hours, monitor the patient very closely. Patient has been seen in consultation by cardiology, as well as pulmonary medicine. 10/10: Patient is sitting at the edge of the bed he continues to be extremely short of breath, he continues to have cough minimal phlegm production, he was able to give a sputum specimen today, continues the patient on cefepime 2 g IV piggyback every 12 hours, he was started yesterday on IV Lasix 20 mg switch again by cardiology to oral Lasix 20 mg once every day along with the sp ironolactone 25 mg once every day, he was started on Farxiga 5 mg orally once every day continue to be on metoprolol and Cardizem, he has been followed by pulmonary medicine as well as by cardiology, will continue with the same Solu- Medrol at this time as the patient appears to be extremely short of breath, he appears to be medically debilitated, and he may need to go for the subacute rehabilitation when the time, for disposition he is not ready to get out of the hospital at this point. 10/11: Patient is sitting in recliner chair, he appears to be extremely short of breath, he continues to be on 4 L nasal cannula, he is very dyspneic with minimal activity including talking, he has been getting Lasix 20 mg once every day as well as Farxiga along with spironolactone, his heart rate is a bit better, he is to be maintained on Solu-Medrol 60 mg IV push every 6 hours for another 24 hours, hopefully will try to cut down the next 24 hours, may need to use the BiPAP at night, pulmonary is following, continue IV antibiotic at this time, patient appears to be quite cachectic with severe protein calorie malnutrition added protein shakes twice every day, patient will likely require subacute rehabilitation even though he refuses that. 10/12: Patient is sitting up in chair, he continues to be somewhat short of breath, he continues to be on 4 L nasal cannula, he appears to be weak, he continues to be on Solu-Medrol, nebulized treatment, he continues to increase his protein intake, we will monitor the patient very closely, continue current treatment plan, overall prognosis continues to be guarded, patient is full code as of now, his sputum culture showed Anjana albicans which likely contamination, continue current IV antibiotic, we will try to wean down on his Solu-Medrol to 40 mg IV push every 8 hours. 10/13: Patient has had a bad night yesterday, he has been restless, patient did receive 1 mg of Ativan last night, today in the morning he has been pulling things away, he is thrashing all over the place, appears to be hypoxemic, not able to keep his oxygen down, pulled his BiPAP away, I spoke with his family including his 2 sons and his who came to the bedside, that his prognosis is very poor at this time, and the patient is running out of options at this time, I urged him to consider hospice or comfort care while he is in the hospital because he is not getting any better meanwhile will make the patient no code at this time, continue with aggressive pulmonary toileting with Solu-Medrol 60 mg IV push every 6 hours Ligia [id number] Pulmicort [id number] c ontinue oxygen support as well, BiPAP as needed, pulmonary is following, cardiology is following, patient appears to be a bit dehydrated today, I started him on normal saline at 50 cc an hour, with potassium supplementation as well, reevaluate the patient in the next 24 hours but most likely he would benefit from comfort care in the hospital if there is no improvement in his mental status, please avoid benzodiazepine and unless absolutely necessary. 10/14: Patient is laying down in bed he is currently on morphine drip at 7 mg/h, he is very rested, his family were at the bedside, is eminent, continue with comfort care at this time, patient family were counseled about and dying and they were ready as the patient suffering has come to an end. Discharge Diagnoses/ Summary 1. Acute on chronic hypoxemic respiratory failure due to acute COPD exacerbation with residual right lower lobe pneumonia that appeared better on CT chest at this time with residual left-sided pleural effusion. 2. Metabolic encephalopathy likely due to hypoxemic respiratory failure and benzodiazepine use. 3. Prerenal azotemia due to aggressive diuresis and poor oral intake of fluid. 4. Atrial fibrillation with rapid ventricular response. 5. Chronic atrial fibrillation. 6. Lactic acidosis. 7. chronic diastolic heart failure. 8. Thoracic aortic aneurysm. 9. Abdominal aortic aneurysm. 10. Bullous pemphigoid. 11. Sarcopenia with significant muscle atrophy and failure to thrive Patient Condition at Discharge: Serious Plan - Discharge Summary Discharge Rx Participant: No New Discharge Prescriptions: No Action Acetaminophen [Tylenol] 1,000 mg PO QID PRN PRN Reason: Pain Or Fever > 100.5 Spironolactone [Aldactone] 25 mg PO DAILY Multivitamins, Thera [Multivitamin (formulary)] 1 tab PO DAILY Diltiazem Cd [Cardizem CD] 180 mg PO DIRECTED guaiFENesin-DM 600/30MG [Mucinex Dm] 2 tab PO BID Ipratropium-Albuterol Nebulize [Duoneb 0.5 mg-3 mg/3 ml Soln] 3 ml INHALATION RT-QID Nystatin 100,000 Unit/ml Susp [Mycostatin Oral Susp] 500,000 unit PO DIRECTED Torsemide [Demadex] 20 mg PO DIRECTED Albuterol Sulfate [Albuterol Sulfate Hfa] 2 puff INHALATION RT-QID PRN PRN Reason: Shortness Of Breath Cefpodoxime Proxetil [Vantin] 200 mg PO BID Metoprolol Succinate (ER) [Toprol XL] 50 mg PO DAILY predniSONE [Deltasone] See Taper PO DIRECTED Warfarin [Coumadin] 1 mg PO W/SUPPER Discharge Medication List Acetaminophen [Tylenol] 1,000 mg PO QID PRN 05/21/20 [History] Albuterol Sulfate [Albuterol Sulfate Hfa] 2 puff INHALATION RT-QID PRN 10/19/20 [History] Multivitamins, Thera [Multivitamin (formulary)] 1 tab PO DAILY 03/21/23 [History] Spironolactone [Aldactone] 25 mg PO DAILY 03/21/23 [History] Cefpodoxime Proxetil [Vantin] 200 mg PO BID 10/03/23 [History] Diltiazem Cd [Cardizem CD] 180 mg PO DIRECTED 10/03/23 [History] Ipratropium-Albuterol Nebulize [Duoneb 0.5 mg-3 mg/3 ml Soln] 3 ml INHALATION RT-QID 10/03/23 [History] Metoprolol Succinate (ER) [Toprol XL] 50 mg PO DAILY 10/03/23 [History] Nystatin 100,000 Unit/ml Susp [Mycostatin Oral Susp] 500,000 unit PO DIRECTED 10/03/23 [History] Torsemide [Demadex] 20 mg PO DIRECTED 10/03/23 [History] Warfarin [Coumadin] 1 mg PO W/SUPPER 10/03/23 [History] guaiFENesin-DM 600/30MG [Mucinex Dm] 2 tab PO BID 10/03/23 [History] predniSONE [Deltasone] See Taper PO DIRECTED 10/03/23 [History] Follow up Appointment(s)/Referral(s): Eugene Todd MD [Primary Care Provider] - 1-2 days [facility] [NON-STAFF] - 1 Week Discharge Disposition: - Preliminary Cause of Preliminary Cause of : Acute Respiratory failure due to End satge COPD
--- NOTE | 2023-10-18 12:36 | CDI ---
Documentation Clarification Form Date: 10/18/2023 11:53:54 AM From: Selina Stephens RN, CCDS Phone: [phone] Admit Date: 10/09/2023 10:21:00 AM Patient Name: Ge Foster Visit Number: [id number] Discharge Date: 10/15/2023 02:20:00 PM ATTENTION: The Clinical Documentation Specialists (CDI) and [facility] Coding Staff appreciate your assistance in clarifying documentation. Please respond to the clarification below the line at the bottom and electronically sign. The CDI & [facility] Coding staff will review the response and follow-up if needed. Please note: Queries are made part of the Legal Health Record. If you have any questions, please contact the author of this message via ITS. Dr. Eugene Todd The patient had acute leukocytosis, lactic acidosis and necrotizing pneumonia. Based on this information and the findings below, is there an additional diagnosis that is clinically appropriate for this patient? History/Risk Factors: Severe COPD, chronic hypoxic respiratory failure on home O2, A fib, CHF, aortic aneurysm. Recent admission for pneumonia. Presents with confusion, hypoxia and SOB. Admitted with necrotizing pneumonia, COPD, metabolic encephalopathy and acute hypoxic respiratory failure. Clinical Indicators: ED: "There is concern for potential sepsis diagnosed at 10:15 AM. Blood culture and lactic acid ordered. IV antibiotics will be ordered." H&P: "Lactic acidosis. Status post IV fluid resuscitation, continue to monitor lactic acid every 6 hours until normalizes. He also had bilateral pleural effusions, cardiomegaly, leukocytosis and coagulopathy with an INR of 9.7." 10/08 CXR: Cavitating lesion in the right perihilar region could be postinfectious or related to neoplasm stable in appearance. 10/[address]: marked mucus plugging in the lower lobe bronchi. Reduction in the RUL infiltrate and pleural effusion. 10/08-10/13 WBC: 13.7-13.4-10.9-4.7 10/08-10/13 Neutrophils: 12.4, 12.7-10-4.4 10/08-10/09 Lactic acid: 2.6-4.9-4.1-8.1-5.1-3.7-2.5-1.9 10/08 Vital signs: Temp 99.4, HR 152, RR 32, BP 93/75, pox 84% Treatment: IV Solumedrol 60mg Q6H 10/08-10/12; IV Solumedrol 40mg Q6H 10/12-10/13; Albuterol/Atrovent QID scheduled 10/08-10/13 Antibiotics: IV Rocephin 2gm Q12H 10/08-10/13; IV Azithromycin 500mg on 10/08 IV Bolus: 1L 0.9 NS IV bolus x2 on 10/08 then 0.9 NS @75mL/hr on 10/09 Is there an additional diagnosis that is clinically appropriate for this patient? [ X ] Sepsis, present on admission [ ] SIRS, without underlying infectious process [ ] No additional diagnosis/not clinically significant [ ] Other, please specify [ ] Unable to determine SIRS Criteria: 2 or more of the following may indicate SIRS Temperature < 96.8F (36C) or > 101.0F (38.3C) Heart Rate > 90 bpm Respiratory Rate > 20 breaths/min or PaCO2 < 32 mmHg White Blood Cell Count > 12,000 or < 4,000 cells/mm3 or > 10% bands MTDD
== END 2023-10-15 14:20 | disposition expired | DRG 177 ==
LOC: EC 07:46 → 3SCARD 10:21
PROVIDERS: ADMIT Internal Medicine; ATTEND Internal Medicine
PROC: 5A09357 Assistance with Respiratory Ventilation, Less than 24 Consecutive Hours, Continuous Positive Airway Pressure (ICD-10-PCS; principal; 2023-10-09)
DX: J85.0 Gangrene and necrosis of lung (principal); E43 Unspecified severe protein-calorie malnutrition; J96.02 Acute respiratory failure with hypercapnia; J96.21 Acute and chronic respiratory failure with hypoxia; I50.33 Acute on chronic diastolic (congestive) heart failure; G93.41 Metabolic encephalopathy; R64 Cachexia; R18.8 Other ascites; D68.9 Coagulation defect, unspecified; E87.20 Acidosis, unspecified; L12.0 Bullous pemphigoid; Z68.1 Body mass index [BMI] 19.9 or less, adult; J44.1 Chronic obstructive pulmonary disease with (acute) exacerbation; J44.0 Chronic obstructive pulmonary disease with (acute) lower respiratory infection; J98.11 Atelectasis; I27.20 Pulmonary hypertension, unspecified; L89.102 Pressure ulcer of unspecified part of back, stage 2; R62.7 Adult failure to thrive; I71.20 Thoracic aortic aneurysm, without rupture, unspecified; I11.0 Hypertensive heart disease with heart failure; I48.0 Paroxysmal atrial fibrillation; J43.9 Emphysema, unspecified; I08.0 Rheumatic disorders of both mitral and aortic valves; Z66 Do not resuscitate; Z51.5 Encounter for palliative care; E86.0 Dehydration; R91.1 Solitary pulmonary nodule; F41.9 Anxiety disorder, unspecified; M62.84 Sarcopenia; K59.00 Constipation, unspecified; M19.90 Unspecified osteoarthritis, unspecified site; F17.210 Nicotine dependence, cigarettes, uncomplicated; Z99.81 Dependence on supplemental oxygen; Z79.01 Long term (current) use of anticoagulants; Z79.899 Other long term (current) drug therapy
CPT/HCPCS: 36415; 71045; 71260; 80053; 83605; 83735; 83880; 84484; 85025; 85610; 85730; 87040; 87070; 87205; 87636; 93005; 93306; 94640; 94660; 94760; 96365; 96375; 99291